=== PATIENT | female | born 1945 | race Caucasian/White ===

== ENCOUNTER 2020-06-21 20:35 | Emergency (ER) | payer OTHER ==
--- OUTSIDE RECORDS SUMMARY | 2020-06-21 20:38 | XMS REPORT | Continuity of Care Document ---
:1945 Author Organization [facility] t Address [address] [place] [address] [address] [place] [address] Care Team Providers Name Role Phone Aiyana Escobar Attending Clinician [phone] Mary Stanley MD Attending Clinician Doctor Unassigned, Name Attending Clinician Unavailable Problems This patient has no known problems. Allergies, Adverse Reactions, Alerts This patient has no known allergies or adverse reactions. Medications This patient has no known medications. Procedures This patient has no known procedures. Encounters Start End Encounter Admission Attending Care Care Encounter Source Date/Time Date/Time Type Type Clinicians Facility Department ID 2020-06-19 2020-06-19 Outpatient Valeria Escobar [facility] [id number] 00:00:00 00:00:00 Aiyana [id number] 2020-03-07 2020-03-07 Office JERRY Stanley [id number] 08:46:43 09:23:25 Visit [facility] [id number] Surgical [id number] Specialti [id number] [place] 2020-03-07 2020-03-07 Orders Doctor SHERI [id number] 00:00:00 00:00:00 Only UnassignedCECILIA [id number] [facility] [id number] Results This patient has no known results.
[2020-06-21 21:15] LABS: Absolute Lymphocytes (CBC) 4.4 K/uL (0.7-4.9); Basophils % 0.6 % (0-1.3); MPV 8.1 fL (7.6-11.3); RBC Red Blood Cell Count 4.78 M/uL (3.86-4.86)
[2020-06-21 21:16] LABS: Protime INR 0.98
[2020-06-21 21:29] LABS: ALT/SGPT 29 U/L (12-78); AST/SGOT 16 U/L (15-37); Albumin 3.8 g/dL (3.4-5.0); Alkaline Phosphatase 71 U/L (45-117); BUN Blood Urea Nitrogen 19 mg/dL (7-18); Bicarbonate 29 mmol/L (21-32); Bilirubin Direct 0.1 mg/dL (0-0.2); Bilirubin Total 0.3 mg/dL (0.2-1.0); Glucose Level 108 mg/dL (74-106); Magnesium 1.7 mg/dL (1.8-2.4); NT PRO-BNP 35 pg/mL (<450); Potassium 3.1 mmol/L (3.5-5.1); Protein, Total 8.5 g/dL (6.4-8.2); Sodium Level 138 mmol/L (136-145); Troponin (Emerg Dept Use Only) < 0.02 ng/mL (0.0-0.045)
[2020-06-21] MEDS ORDERED: MAGNES/ALUMIN/SIMET 30ML UCUP ONE (21:30)
[2020-06-21] MEDS ORDERED: LIDOCAINE VISCOUS 2% SOLN 15 ML UDC ONE (21:31)
[2020-06-21] MEDS ORDERED: MORPHINE 4 MG/ML SYR ONE (21:31)
[2020-06-21] MEDS ORDERED: FAMOTIDINE 20 MG/2 ML VIAL IV ONE (21:31)
[2020-06-21] MEDS ORDERED: NA CHLORIDE 0.9% 1,000 ML ONE (21:31)
[2020-06-21] MEDS ORDERED: ONDANSETRON 4 MG/2 ML VIAL ONE (21:31)
[2020-06-21] MEDS ORDERED: KCL 20 MEQ/100 mL IVPB 20 MEQ/100 ML BAG IV ONE (22:06)
--- NOTE | 2020-06-21 23:39 | ER ---
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 Denies SOB/dizzy. Coronavirus screen: Client denies travel out of the [place] in the last 14 days. At this time, the client does not indicate any symptoms associated with coronavirus-19. Ebola Screen: Patient denies travel to an Ebola-affected area in the 21 days before illness onset. Initial Sepsis Screen: Does the patient meet any 2 criteria? No. Patient's initial sepsis screen is negative. Does the patient have a suspected source of infection? No. Patient's initial sepsis screen is negative. Risk Assessment: Do you want to hurt yourself or someone else? Patient reports no desire to harm self or others. Onset of symptoms was June 21, 2020. 20:49 Method Of Arrival: Ambulatory ll1 20:49 Acuity: RYAN 3 ll1 Historical: - Allergies: 20:45 Augmentin; ll1 - PMHx: 20:45 GERD; Hypothyroidism; Hypertension; Tachycardia; ll1 - PSHx: 20:45 Tubal ligation; ll1 - Immunization history:: Flu vaccine is not up to date. - Social history:: Smoking status: Patient denies any tobacco usage or history of. - Family history:: not pertinent. Screenin:05 Abuse screen: Denies threats or abuse. Denies injuries from another. Nutritional rv screening: No deficits noted. Tuberculosis screening: No symptoms or risk factors identified. Fall Risk None identified. Assessment: 21:05 General: Appears uncomfortable, Behavior is calm, cooperative. Pain: Complains of pain rv in chest Pain does not radiate. Pain began suddenly. Neuro: Level of Consciousness is awake, alert, obeys commands, Oriented to person, place, time, situation. Cardiovascular: Patient's skin is warm and dry. Rhythm is sinus rhythm. Respiratory: Airway is patent Respiratory effort is even, unlabored. Derm: Skin is intact. 21:57 Reassessment: sent to CT. mg2 23:36 Reassessment: Patient appears in no apparent distress at this time. Patient and/or mg2 family updated on plan of care and expected duration. Pain level reassessed. Patient is alert, oriented x 3, equal unlabored respirations, skin warm/dry/pink. Vital Signs: 20:49 BP 167 / 78; Pulse 79; Resp 18; Pulse Ox 98% on R/A; Weight 86.18 kg; Height 5 ft. 3 ll1 in. (160.02 cm); Pain 10/10; 23:12 BP 138 / 58; Pulse 66; Resp 15; Temp 98.2; Pulse Ox 96% on R/A; mg2 23:35 BP 139 / 70; Pulse 71; Resp 18; Pulse Ox 98% on R/A; mg2 20:49 Body Mass Index 33.66 (86.18 kg, 160.02 cm) ll1 ED Course: 20:39 Patient arrived in ED. cl3 20:45 Arm band placed on Patient placed in an exam room, on a stretcher. ll1 20:47 Bret Smiley, BIA is Primary Nurse. rv 20:50 Triage completed. ll1 20:54 Initial lab(s) drawn, by me, sent to lab. Inserted saline lock: 20 gauge in right rv antecubital area, using aseptic technique. Blood collected. 20:57 Christiano Medina MD is Attending Physician. ma2 21:06 Patient has correct armband on for positive identification. monitor and storage bin tender on. Pulse rv ox on. NIBP on. 21:06 Patient maintains SpO2 saturation greater than 95% on room air. rv 21:30 US Abdomen Limited In Process Unspecified. EDMS 21:50 XRAY Chest (1 view) In Process Unspecified. EDMS 22:11 CT Abd/Pelvis - IV Contrast Only In Process Unspecified. EDMS 23:38 Brennan Boyce MD is Referral Physician. ma2 23:46 No provider procedures requiring assistance completed. IV discontinued, intact, rv bleeding controlled, No redness/swelling at site. Pressure dressing applied. Administered Medications: 21:30 Drug: NS 0.9% 1000 ml Route: IV; Rate: 1 bolus; Site: right antecubital; mg2 23:47 Follow up: IV Status: Completed infusion; IV Intake: 1000ml rv 21:30 Drug: GI Cocktail without - (Maalox Suspension 30 ml, Lidocaine Liquid 2 % 15 mg2 ml) Route: PO; 23:47 Follow up: Response: No adverse reaction rv 21:30 Drug: morphine 4 mg Route: IVP; Site: right antecubital; mg2 23:46 Follow up: Response: No adverse reaction; Marked relief of symptoms; Pain is decreased; rv RASS: Alert and Calm (0) 21:30 Drug: Zofran (Ondansetron) 4 mg Route: IVP; Site: right antecubital; mg2 23:46 Follow up: Response: No adverse reaction rv 21:31 Drug: Pepcid (famotidine) 20 mg Route: IVP; Site: right antecubital; mg2 23:47 Follow up: Response: No adverse reaction rv 21:59 Drug: Potassium Chloride 20 mEq Route: IV; Rate: calculated rate; Site: right mg2 antecubital; 23:46 Follow up: IV Status: Completed infusion; IV Intake: 50ml rv 23:46 Follow up: IV Intake: 100ml rv Intake: 23:46 IV: 50ml; Total: 50ml. rv 23:46 IV: 100ml; Total: 150ml. rv 23:47 IV: 1000ml; Total: 1150ml. rv Outcome: 23:38 Discharge ordered by . ma2 23:47 Discharged to home ambulatory. rv 23:47 Condition: good 23:47 Discharge instructions given to patient, Instructed on discharge instructions, follow up and referral plans. medication usage, Demonstrated understanding of instructions, follow-up care, medications, Prescriptions given X 3. 23:47 Patient left the ED. rv Signatures: Dispatcher [employer] EDMS Christiano Medina MD MD ma2 Abhishek Mcdonald, RN RN mg2 Bret Smiley RN RN rv Tricia Barrett Lynsay, RN RN ll1
--- NOTE | 2020-06-21 23:39 | EDPHYS ---
Physician Documentation [facility] Name: Chanel Martinez Age: 75 yrs Sex: Female : 1945 Arrival Date: 06/21/2020 Time: 20:39 Bed 2 Private MD: ED Physician Christiano Medina HPI: 06/21 21:42 This 75 yrs old Female presents to ER via Ambulatory with complaints of ma2 epigastric and abdominal pain Low Back Pain. 21:45 Onset: gradually, 1 hour(s) ago. Associated signs and symptoms: Pertinent positives: ma2 abdominal pain, Pertinent negatives: cough, dizziness, lower extremity pain, lightheadedness, near syncope, shortness of breath, syncope, vomiting. Severity of pain: At its worst the pain was moderate in the emergency department the pain is unchanged. The patient has not experienced similar symptoms in the past. epigastric abdominal pain and right upper quadrant that radiates to right scapula, no chest pain, never had any cardiac pain or cardiac problems before. Historical: - Allergies: 20:45 Augmentin; ll1 - PMHx: 20:45 GERD; Hypothyroidism; Hypertension; Tachycardia; ll1 - PSHx: 20:45 Tubal ligation; ll1 - Immunization history:: Flu vaccine is not up to date. - Social history:: Smoking status: Patient denies any tobacco usage or history of. - Family history:: not pertinent. ROS: 21:45 Constitutional: Negative for fever, chills, and weight loss. ma2 21:45 All other systems are negative. Exam: 21:45 Constitutional: This is a well developed, well nourished patient who is awake, alert, ma2 and in no acute distress. Chest/axilla: Normal chest wall appearance and motion. Nontender with no deformity. No lesions are appreciated. Cardiovascular: Regular rate and rhythm with a normal S1 and S2. No gallops, murmurs, or rubs. Normal PMI, no JVD. No pulse deficits. Respiratory: Lungs have equal breath sounds bilaterally, clear to auscultation and percussion. No rales, rhonchi or wheezes noted. No increased work of breathing, no retractions or nasal flaring. Abdomen/GI: mild epigastric and ruq -tender, with normal bowel sounds. No distension or tympany. No guarding or rebound. Back: No spinal tenderness. No costovertebral tenderness. Full range of motion. MS/ Extremity: Pulses equal, no cyanosis. Neurovascular intact. Full, normal range of motion. Neuro: Awake and alert, GCS 15, oriented to person, place, time, and situation. Cranial nerves II-XII grossly intact. Motor strength 5/5 in all extremities. Sensory grossly intact. Cerebellar exam normal. Normal gait. Vital Signs: 20:49 BP 167 / 78; Pulse 79; Resp 18; Pulse Ox 98% on R/A; Weight 86.18 kg; Height 5 ft. 3 ll1 in. (160.02 cm); Pain 10/10; 23:12 BP 138 / 58; Pulse 66; Resp 15; Temp 98.2; Pulse Ox 96% on R/A; mg2 23:35 BP 139 / 70; Pulse 71; Resp 18; Pulse Ox 98% on R/A; mg2 20:49 Body Mass Index 33.66 (86.18 kg, 160.02 cm) ll1 MDM: 20:57 Patient medically screened. ma2 21:45 Differential diagnosis: esophagitis, gastritis, gastroesophageal reflux disease (GERD), ma2 pancreatitis, pleurisy, pneumonia, unlikely acs she is yovanny score zero and heart score zero, ekg wnl and troponin is negative. 22:54 HEART Score: History:. Data reviewed: vital signs, nurses notes. ED course: pain has ma2 resolved, n ochest pain, no symptoms at this time, yovanny score and heart score of zero, will get 2 trop and she will see gen surg for cholelithiasis . 06/21 20:55 Order name: Basic Metabolic Panel; Complete Time: 21:41 06/21 20:55 Order name: CBC with Diff; Complete Time: 21:41 06/21 20:55 Order name: LFT's; Complete Time: 21:41 06/21 20:55 Order name: Magnesium; Complete Time: 21:41 06/21 20:55 Order name: NT PRO-BNP; Complete Time: 21:41 06/21 20:55 Order name: PT-INR; Complete Time: 21:41 06/21 20:55 Order name: Troponin (emerg Dept Use Only); Complete Time: 21:41 06/21 20:55 Order name: XRAY Chest (1 view) 06/21 21:08 Order name: Lipase; Complete Time: 21:41 [facility] 06/21 21:08 Order name: US Abdomen Limited [facility] 06/21 21:08 Order name: CT Abd/Pelvis - IV Contrast Only [facility] 06/21 21:49 Order name: Troponin (emerg Dept Use Only): repeat troponin at 11 pm please! [facility] 06/21 21:49 Order name: Troponin (Emerg Dept Use Only); Complete Time: 23:37 EDMS 06/21 20:55 Order name: EKG; Complete Time: 20:55 rv 06/21 20:55 Order name: Cardiac monitoring; Complete Time: 20:59 rv 06/21 20:55 Order name: EKG - Nurse/Tech; Complete Time: 21:00 06/21 20:55 Order name: IV Saline Lock; Complete Time: 21:06 rv 06/21 20:55 Order name: Labs collected and sent; Complete Time: 21:06 06/21 20:55 Order name: O2 Per Protocol; Complete Time: 21:06 06/21 20:55 Order name: O2 Sat Monitoring; Complete Time: 21:00 rv Administered Medications: 21:30 Drug: NS 0.9% 1000 ml Route: IV; Rate: 1 bolus; Site: right antecubital; mg2 23:47 Follow up: IV Status: Completed infusion; IV Intake: 1000ml rv 21:30 Drug: GI Cocktail without - (Maalox Suspension 30 ml, Lidocaine Liquid 2 % 15 mg2 ml) Route: PO; 23:47 Follow up: Response: No adverse reaction rv 21:30 Drug: morphine 4 mg Route: IVP; Site: right antecubital; mg2 23:46 Follow up: Response: No adverse reaction; Marked relief of symptoms; Pain is decreased; rv RASS: Alert and Calm (0) 21:30 Drug: Zofran (Ondansetron) 4 mg Route: IVP; Site: right antecubital; mg2 23:46 Follow up: Response: No adverse reaction rv 21:31 Drug: Pepcid (famotidine) 20 mg Route: IVP; Site: right antecubital; mg2 23:47 Follow up: Response: No adverse reaction rv 21:59 Drug: Potassium Chloride 20 mEq Route: IV; Rate: calculated rate; Site: right mg2 antecubital; 23:46 Follow up: IV Status: Completed infusion; IV Intake: 50ml rv 23:46 Follow up: IV Intake: 100ml rv Disposition: 06/21/20 23:38 Discharged to Home. Impression: Cholelithiasis. - Condition is Stable. - Discharge Instructions: Biliary Colic, Adult. - Prescriptions for Zofran 4 mg Oral Tablet - take 1 tablet by ORAL route every 12 hours As needed; 20 tablet. Diclofenac Sodium 75 mg Oral Tablet Sustained Release - take 1 tablet by ORAL route 2 times per day; 30 tablet. Pepcid 20 mg Oral Tablet - take 1 tablet by ORAL route once daily for 10 days; 10 tablet. - Medication Reconciliation Form, Thank You Letter, Antibiotic Education, Prescription Opioid Use form. - Follow up: Brennan Boyce; When: Tomorrow; Reason: Continuance of care. Signatures: Dispatcher [employer] EDMS Christiano Medina MD MD ma2 Abhishek Mcdonald RN RN mg2 Bret Smiley RN RN rv Anaya Barrett RN RN ll1 Corrections: (The following items were deleted from the chart) 23:47 23:38 06/21/2020 23:38 Discharged to Home. Impression: Cholelithiasis. Condition is rv Stable. Discharge Instructions: Biliary Colic, Adult. Prescriptions for Zofran 4 mg Oral Tablet - take 1 tablet by ORAL route every 12 hours As needed; 20 tablet, Diclofenac Sodium 75 mg Oral Tablet Sustained Release - take 1 tablet by ORAL route 2 times per day; 30 tablet, Pepcid 20 mg Oral Tablet - take 1 tablet by ORAL route once daily for 10 days; 10 tablet. and Forms are Medication Reconciliation Form, Thank You Letter, Antibiotic Education, Prescription Opioid Use. Follow up: Brennan Boyce; When: Tomorrow; Reason: Continuance of care. ma2
--- NOTE | 2020-06-22 09:18 | RAD REPORT ---
EXAM DESCRIPTION: US - Abdomen Exam Limited - 06/21/2020 9:30 pm CLINICAL HISTORY: Abdominal pain. COMPARISON: None. FINDINGS: The gallbladder wall is not thickened. Multiple gallstones. The biliary tree is normal caliber. IMPRESSION: Cholelithiasis without evidence of cholecystitis
--- NOTE | 2020-06-22 09:20 | RAD REPORT ---
EXAM DESCRIPTION: Nico Single View06/21/2020 9:51 pm CLINICAL HISTORY: Chest pain COMPARISON: none FINDINGS: The lungs appear clear of acute infiltrate. The heart is normal size IMPRESSION: No acute abnormalities displayed
--- NOTE | 2020-06-22 11:12 | EKG ---
Test Date: 2020-06-21 Test Time: 20:54:26 Second Chef: MONY MEASUREMENT RESULTS: Intervals: Rate: 71 IA: 152 QRSD: 112 QT: 406 QTc: 441 [place]: P: 57 IA: 152 QRS: -2 T: 68 INTERPRETIVE STATEMENTS: Normal sinus rhythm Normal ECG No previous ECG available for comparison Electronically Signed On 06-22-20 11:11:08 CDT by Agus Kolb
[2020-06-22 17:15] VITALS: TEMP 98.2
[2020-06-22 17:18] VITALS: BP 139/70; O2SAT 98
--- NOTE | 2020-06-22 19:25 | RAD REPORT ---
EXAM DESCRIPTION: CT - Abdomen Pelvis W Contrast - 06/22/2020 6:33 am CLINICAL HISTORY: ABD PAIN. COMPARISON: None. TECHNIQUE: CT of the abdomen and pelvis was performed following intravenous administration of iodina warren contrast. Arterial phase images through the abdomen, portal venous phase images through the abdom en and pelvis. Oral contrast was not administered. Axial, coronal, and sagittal soft tissue window re constructions were created and sent to PACS. This exam was performed according to our departmental dose-optimization program, which includes autom ated exposure control, adjustment of the mA and/or kV according to patient size and/or use of iterati ve reconstruction technique. FINDINGS: Thoracic: No significant abnormality. Hepatobiliary: Mild hepatomegaly, measuring 17.1 cm. No concerning hepatic lesion identified. The hep atic and portal veins are patent. Gallbladder sludge. No wall thickening or inflammatory changes. No biliary ductal dilatation. Pancreas: Unremarkable. Spleen: Unremarkable. Gastrointestinal: No evidence of bowel obstruction or perienteric inflammation. The appendix is tima l. Adrenals: No abnormality identified in either adrenal gland. Renal: Small interpolar left renal hypodensity measures 1.3 cm, too small to accurately characterize but statistically likely a cyst. No concerning parenchymal abnormality in either kidney. No hydroneph rosis or urolithiasis. Bladder/Reproductive: Unremarkable appearance of the urinary bladder by CT technique. Unremarkable CT appearance of the uterus and ovaries. Vascular/Lymphatics: No lymphadenopathy identified by CT size criteria. Abdominal aorta is normal in caliber. Mild atherosclerosis. The major visceral vessels are patent. Musculoskeletal: No concerning osseous lesion identified. Osteopenia. Lumbar spine degenerative fu es. Fluid / peritoneum: No significant free fluid. No free intraperitoneal air identified. IMPRESSION 1. No acute abnormality identified by CT. 2. Mild hepatomegaly. 3. Gallbladder sludge without evidence of acute cholecystitis. 4. Small left renal hypodensity, likely a cyst. Electronically signed by: Mecca Cha MD 06/21/2020 10:35 PM CDT Due to temporary technical issues with the PACS/Fluency reporting system, reports are being signed by the in house radiologists without review as a courtesy to insure prompt reporting. The interpreting radiologist is fully responsible for the content of the report.
== END 2020-06-21 23:47 | disposition home or self-care (01) ==
LOC: ER 20:35
DX: K80.20 Calculus of gallbladder without cholecystitis without obstruction (principal); M54.5 Low back pain; K21.9 Gastro-esophageal reflux disease without esophagitis; E03.9 Hypothyroidism, unspecified; I10 Essential (primary) hypertension
CPT/HCPCS: 93005; 85025; 80048; 36415; 83735; 85610; 80076; 84484 ×2; 83690; 83880; 74177; 71045; 76705; Q9967; J3480; J7030; J2405; 96365; 96366; 96375; 99285

== ENCOUNTER 2020-07-09 13:38 | Emergency (ER) | payer OTHER ==
--- OUTSIDE RECORDS SUMMARY | 2020-07-09 13:40 | XMS REPORT | Continuity of Care Document ---
:1945 Author Organization [facility] t Address [address] [place] [address] [address]. [address] [place] [address] Care Team Providers Name Role Phone Aiyana Escobar Attending Clinician [phone] Mary Stanley MD Attending Clinician Doctor Unassigned, Name Attending Clinician Unavailable Problems This patient has no known problems. Allergies, Adverse Reactions, Alerts This patient has no known allergies or adverse reactions. Medications This patient has no known medications. Procedures This patient has no known procedures. Encounters Start End Encounter Admission Attending Care Care Encounter Source Date/Time Date/Time Type Type Clinicians Facility Department ID 2020-07-09 2020-07-09 Outpatient Valeria Escobar [facility] [id number] 00:00:00 00:00:00 Aiyana [id number] 2020-06-19 2020-06-19 Outpatient Valeria Escobar [facility] [id number] 00:00:00 00:00:00 Aiyana [id number] 2020-03-07 2020-03-07 Office JERRY Stanley [id number] 08:46:43 09:23:25 Visit [facility] [id number] Surgical [id number] Specialti [id number] [address] [place] 2020-03-07 2020-03-07 Orders Doctor WADE [id number] 00:00:00 00:00:00 Only Unassigned, CECILIA [id number] [facility] [id number] Results This patient has no known results.
[2020-07-09 14:17] LABS: Absolute Lymphocytes (CBC) 2.2 K/uL (0.7-4.9); Basophils % 0.4 % (0-1.3); Hematocrit 40.1 % (36.0-45.0); Lymphocytes % 19.9 % (15.3-44.8); MPV 8.4 fL (7.6-11.3); RBC Red Blood Cell Count 4.98 M/uL (3.86-4.86)
[2020-07-09] MEDS ORDERED: MORPHINE 4 MG/ML SYR ONE (14:21)
[2020-07-09] MEDS ORDERED: ONDANSETRON 4 MG/2 ML VIAL ONE (14:21)
[2020-07-09 14:34] LABS: Bilirubin Direct 0.2 mg/dL (0-0.2); Bilirubin Total 0.7 mg/dL (0.2-1.0); Potassium 3.3 mmol/L (3.5-5.1); Protein, Total 8.1 g/dL (6.4-8.2)
--- NOTE | 2020-07-09 14:44 | RAD REPORT ---
EXAM DESCRIPTION: CT - Abdomen Pelvis W Contrast - 07/09/2020 2:15 pm CLINICAL HISTORY: ABD PAIN COMPARISON: Abdomen Pelvis W Contrast dated 06/21/2020; Abdomen Pelvis W Contrast dated 10/26/2015 TECHNIQUE: Biphasic, helical CT imaging of the abdomen and pelvis was performed following 100 ml non -ionic IV contrast. Oral contrast was given. All CT scans are performed using dose optimization technique as appropriate and may include automated exposure control or mA/KV adjustment according to patient size. FINDINGS: No suspicious findings in the lung bases. Small hiatal hernia is present. No cardiomegaly or pericardial effusion. Liver shows a mild diffuse fatty infiltration. No focal liver parenchymal lesion. No portal vein abno rmality identified. Spleen and pancreas show no suspicious findings. Gallbladder and biliary tree are also without suspicious finding. Gallstones and sludge can be occult on CT imaging. Symmetric renal function is seen with no hydronephrosis or suspicious renal mass. No pyelonephritis o r acute parenchymal process. No bladder abnormalities. No adrenal abnormalities. Small 10 mm cyst pre sent lateral mid left kidney. Uterus and ovaries show no suspicious findings. Left fundal fibroid is present similar to comparison. No stomach or small bowel abnormality. No evidence for appendicitis. Cecum through descending portion s of the colon are unremarkable. The proximal and mid sigmoid colon shows circumferential wall thicke aaron and edema. There is stranding in the adjacent fat. A few diverticula are present in this region. No focal mass lesion. No extraluminal air or bowel content. No free fluid or pneumatosis. No other inflammatory stranding changes seen. No hernia, mass or bul ky lymphadenopathy. No suspicious bony findings. IMPRESSION: Mild diverticulitis involving the proximal and mid sigmoid colon. No abscess, free air or emergent complication.
[2020-07-09] MEDS ORDERED: metroNIDAZOLE 500 MG TABLET ONE (15:15)
[2020-07-09] MEDS ORDERED: levoFLOXacin 750 MG TAB ONE (15:16)
--- NOTE | 2020-07-09 15:25 | EDPHYS ---
Physician Documentation [facility] Name: Chanel Martinez Age: 75 yrs Sex: Female : 1945 Arrival Date: 07/09/2020 Time: 13:41 Bed 6 Private MD: ED Physician Jaime Henderson HPI: 07/09 13:57 This 75 yrs old Female presents to ER via Ambulatory with complaints of jmm Abdominal Pain. 13:57 The patient presents with abdominal pain right lower quadrant, in the left lower jmm quadrant. Onset: The symptoms/episode began/occurred gradually, 1 day(s) ago. The symptoms do not radiate. Associated signs and symptoms: Pertinent positives: nausea, vomiting, and diarrhea, Pertinent negatives: fever. The symptoms are described as achy. Modifying factors: The symptoms are alleviated by nothing, the symptoms are aggravated by nothing. The patient has not experienced similar symptoms in the past. Historical: - Allergies: 13:54 Augmentin; aa5 13:54 PENICILLINS; aa5 - PMHx: 13:54 GERD; Hypertension; Hypothyroidism; Tachycardia; aa5 - PSHx: 13:54 Tubal ligation; aa5 - Immunization history:: Adult Immunizations unknown. - Social history:: Smoking status: Patient denies any tobacco usage or history of. ROS: 13:57 Constitutional: Negative for fever, chills, and weight loss, Cardiovascular: Negative jmm for chest pain, palpitations, and edema, Respiratory: Negative for shortness of breath, cough, wheezing, and pleuritic chest pain. 13:57 Abdomen/GI: Positive for abdominal pain. 13:57 All other systems are negative. Exam: 13:57 Constitutional: This is a well developed, well nourished patient who is awake, alert, jmm and in no acute distress. Head/Face: atraumatic. Eyes: EOMI, no conjunctival erythema appreciated ENT: Moist Mucus Membranes Neck: Trachea midline, Supple Chest/axilla: Normal chest wall appearance and motion. Cardiovascular: Regular rate and rhythm. No edema appreciated Respiratory: Normal respirations, no respiratory distress appreciated 13:57 Back: Normal ROM Skin: General appearance color normal MS/ Extremity: Moves all extremities, no obvious deformities appreciated, no edema noted to the lower extremities Neuro: Awake and alert, normal gait Psych: Behavior is normal, Mood is normal, Patient is cooperative and pleasant 13:57 Abdomen/GI: Inspection: obese Palpation: soft, in all quadrants, mild abdominal tenderness, in the suprapubic area, right lower quadrant and left lower quadrant. Vital Signs: 13:43 BP 134 / 76; Pulse 88; Resp 16 S; Temp 97.7(O); Pulse Ox 98% on R/A; Weight 85.73 kg aa5 (R); Height 5 ft. 3 in. (160.02 cm) (R); 15:04 BP 115 / 69; Pulse 85; Resp 16 S; Pulse Ox 98% on R/A; jd3 16:06 BP 138 / 70; Pulse 79; Resp 17 S; Pulse Ox 97% on R/A; jd3 13:43 Body Mass Index 33.48 (85.73 kg, 160.02 cm) aa5 MDM: 13:50 Patient medically screened. anders 15:22 Data reviewed: vital signs, nurses notes. Counseling: I had a detailed discussion with anders the patient and/or guardian regarding: the historical points, exam findings, and any diagnostic results supporting the discharge/admit diagnosis, lab results, radiology results, the need for outpatient follow up, to return to the emergency department if symptoms worsen or persist or if there are any questions or concerns that arise at home. ED course: Patient is alert and non toxic in appearance in the ED. No signs of sepsis. Abdomen soft. Patient is advised to follow up with pcp/gi for reevaluation. Patient is otherwise given strict return precautions. Patient understood and agrees with the plan of care. . 07/09 13:51 Order name: Basic Metabolic Panel; Complete [facility]: 14:[facility] 07/[facility] 13:51 Order name: CBC with Diff; Complete Time: 14:37 [facility] 07/09 13:51 Order name: Hepatic Function; Complete Time: 14:37 [facility] 07/09 13:51 Order name: Lipase; Complete Time: 14:37 [facility] 07/09 13:51 Order name: CT Abd/Pelvis - IV Contrast Only; Complete Time: 14:54 [facility] 07/09 14:29 Order name: CREATININE WHOLE BLOOD; Complete Time: 14:37 [facility] 07/09 13:51 Order name: IV Saline Lock; Complete Time: 14:02 [facility] 07/09 13:51 Order name: Labs collected and sent; Complete Time: 14:02 [facility] Administered Medications: 14:08 Drug: morphine 4 mg Route: IVP; Site: right antecubital; jd3 15:00 Follow up: Response: No adverse reaction; RASS: Alert and Calm (0) jd3 14:08 Drug: Zofran (Ondansetron) 4 mg Route: IVP; Site: right antecubital; jd3 15:00 Follow up: Response: No adverse reaction jd3 15:03 Drug: LevaQUIN (levofloxacin) 750 mg Route: PO; jd3 16:09 Follow up: Response: No adverse reaction jd3 15:03 Drug: Flagyl (metroNIDAZOLE) 500 mg Route: PO; jd3 16:10 Follow up: Response: No adverse reaction jd3 Disposition: 16:07 Co-signature as Attending Physician, Jaime Henderson MD I agree with the assessment and kdr plan of care. Disposition: 07/09/20 15:25 Discharged to Home. Impression: Acute Diverticulitis. - Condition is Stable. - Discharge Instructions: Diverticulitis. - Prescriptions for Zofran ODT 4 mg Oral tablet,disintegrating - place 1 tablet by TRANSLINGUAL route every 4-6 hours; 20 tablet. Flagyl 500 mg Oral Tablet - take 1 tablet by ORAL route every 6 hours for 10 days; 40 tablet. Levaquin 750 mg Oral Tablet - take 1 tablet by ORAL route once daily for 10 days; 10 tablet. Tylenol- Codeine #3 300-30 mg Oral Tablet - take 1 tablet by ORAL route every 4-6 hours As needed; 20 tablet. - Medication Reconciliation Form, Thank You Letter, Antibiotic Education, Prescription Opioid Use form. - Follow up: Private Physician; When: 2 - 3 days; Reason: Recheck today's complaints, Continuance of care, Re-evaluation by your physician. Signatures: Dispatcher [employer] EDMS Jaime Henderson MD MD kdr Mickail, Joel, PA PA jmm Calderon, Audri, RN RN aa5 Luther Kirk RN RN jd3 Corrections: (The following items were deleted from the chart) 16:07 15:25 07/09/2020 15:25 Discharged to Home. Impression: Acute Diverticulitis. Condition jd3 is Stable. Forms are Medication Reconciliation Form, Thank You Letter, Antibiotic Education, Prescription Opioid Use. Follow up: Private Physician; When: 2 - 3 days; Reason: Recheck today's complaints, Continuance of care, Re-evaluation by your physician. anders
--- NOTE | 2020-07-09 15:25 | ER ---
Nurse's Notes [facility] Name: Chanel Martinez Age: 75 yrs Sex: Female : 1945 Arrival Date: 07/09/2020 Time: 13:41 Bed 6 Private MD: Diagnosis: Acute Diverticulitis Presentation: 07/09 13:43 Chief complaint: Patient states: lower abd pain since yesterday, pt reports vomited aa5 twice yesterday, denies vomiting today. Pt reports she took stool softener for constipation and now has some diarrhea. 13:43 Coronavirus screen: nausea, vomiting. Ebola Screen: Patient negative for fever greater aa5 than or equal to 101.5 degrees Fahrenheit, and additional compatible Ebola Virus Disease symptoms. Initial Sepsis Screen: Does the patient meet any 2 criteria? No. Patient's initial sepsis screen is negative. Does the patient have a suspected source of infection? No. Patient's initial sepsis screen is negative. Risk Assessment: Do you want to hurt yourself or someone else? Patient reports no desire to harm self or others. Onset of symptoms was June 2020. 13:43 Acuity: RYAN 3 aa5 13:43 Method Of Arrival: Ambulatory aa5 Historical: - Allergies: 13:54 Augmentin; aa5 13:54 PENICILLINS; aa5 - PMHx: 13:54 GERD; Hypertension; Hypothyroidism; Tachycardia; aa5 - PSHx: 13:54 Tubal ligation; aa5 - Immunization history:: Adult Immunizations unknown. - Social history:: Smoking status: Patient denies any tobacco usage or history of. Screenin:11 Abuse screen: Denies threats or abuse. Nutritional screening: No deficits noted. jd3 Tuberculosis screening: No symptoms or risk factors identified. Fall Risk Ambulatory Aid- None/Bed Rest/Nurse Assist (0 pts). Gait- Normal/Bed Rest/Wheelchair (0 pts) Mental Status- Oriented to own ability (0 pts). Total Hernandez Fall Scale indicates No Risk (0-24 pts). Assessment: 14:09 General: Appears in no apparent distress. comfortable, Behavior is calm, cooperative, jd3 appropriate for age. Pain: Complains of pain in suprapubic area, right lower quadrant and left lower quadrant Quality of pain is described as sharp. Neuro: Level of Consciousness is awake, alert, obeys commands, Oriented to person, place, time, situation. Cardiovascular: Denies chest pain, Capillary refill < 3 seconds Patient's skin is warm and dry. Respiratory: Airway is patent Respiratory effort is even, unlabored, Respiratory pattern is regular, symmetrical, Denies cough, shortness of breath. GI: Abdomen is round non-distended, Abd is soft and non tender X 4 quads. Reports lower abdominal pain, diarrhea, nausea. : No signs and/or symptoms were reported regarding the genitourinary system. EENT: No signs and/or symptoms were reported regarding the EENT system. Derm: Skin is intact, Skin is dry, Skin is normal, Skin temperature is warm. Musculoskeletal: Circulation, motion, and sensation intact. Range of motion: intact in all extremities. 15:04 Reassessment: Patient appears in no apparent distress at this time. Patient and/or jd3 family updated on plan of care and expected duration. Pain level reassessed. Patient is alert, oriented x 3, equal unlabored respirations, skin warm/dry/pink. Patient states feeling better. 16:06 Reassessment: Patient appears in no apparent distress at this time. Patient and/or jd3 family updated on plan of care and expected duration. Pain level reassessed. Patient is alert, oriented x 3, equal unlabored respirations, skin warm/dry/pink. Patient states feeling better. Vital Signs: 13:43 BP 134 / 76; Pulse 88; Resp 16 S; Temp 97.7(O); Pulse Ox 98% on R/A; Weight 85.73 kg aa5 (R); Height 5 ft. 3 in. (160.02 cm) (R); 15:04 BP 115 / 69; Pulse 85; Resp 16 S; Pulse Ox 98% on R/A; jd3 16:06 BP 138 / 70; Pulse 79; Resp 17 S; Pulse Ox 97% on R/A; jd3 13:43 Body Mass Index 33.48 (85.73 kg, 160.02 cm) aa5 ED Course: 13:41 Patient arrived in ED. mr 13:43 Arm band placed on Patient placed in an exam room, on a stretcher. aa 13:45 Davidson Hawkins PA is PHCP. [facility] 13:45 Jaime Henderson MD is Attending Physician. anders 13:46 Alejandrina Burgos, RN is Primary Nurse. fatoumata 13:48 Luther Kirk, RN is Primary Nurse. jd3 13:53 Triage completed. aa5 14:08 Inserted saline lock: 20 gauge in right antecubital area, using aseptic technique. jd3 Blood collected. 14:11 Patient has correct armband on for positive identification. Bed in low position. Call jd3 light in reach. Side rails up X 1. Adult w/ patient. Pulse ox on. NIBP on. 14:15 CT Abd/Pelvis - IV Contrast Only In Process Unspecified. EDMS 15:04 No provider procedures requiring assistance completed. jd3 16:06 IV discontinued, intact, bleeding controlled, No redness/swelling at site. Pressure jd3 dressing applied. Administered Medications: 14:08 Drug: morphine 4 mg Route: IVP; Site: right antecubital; jd3 15:00 Follow up: Response: No adverse reaction; RASS: Alert and Calm (0) jd3 14:08 Drug: Zofran (Ondansetron) 4 mg Route: IVP; Site: right antecubital; jd3 15:00 Follow up: Response: No adverse reaction jd3 15:03 Drug: LevaQUIN (levofloxacin) 750 mg Route: PO; jd3 16:09 Follow up: Response: No adverse reaction jd3 15:03 Drug: Flagyl (metroNIDAZOLE) 500 mg Route: PO; jd3 16:10 Follow up: Response: No adverse reaction jd3 Outcome: 15:25 Discharge ordered by . [facility] 16:05 Discharged to home ambulatory, with family. jd3 16:05 Condition: stable 16:05 Discharge instructions given to patient, family, Instructed on discharge instructions, follow up and referral plans. medication usage, Demonstrated understanding of instructions, follow-up care, medications, Prescriptions given X 4. 16:07 Patient left the ED. jd3 Signatures: Dispatcher [employer] EDMS Davidson Hawkins PA PA jmm Rivera, Mary mr ChunCaren, RN RN aa5 Alejandrina Burgos, RN RN jl7 Luther Kirk, BIA RN jd3
[2020-07-09 16:14] VITALS: TEMP 97.7
[2020-07-09 16:17] VITALS: BP 138/70; O2SAT 97
== END 2020-07-09 16:07 | disposition home or self-care (01) ==
LOC: ER 13:38
DX: K57.32 Diverticulitis of large intestine without perforation or abscess without bleeding (principal); K21.9 Gastro-esophageal reflux disease without esophagitis; I10 Essential (primary) hypertension; E03.9 Hypothyroidism, unspecified
CPT/HCPCS: 85025; 80048; 36415; 82565; 80076; 83690; 74177; J2405; 96374; 96375; 99284

== ENCOUNTER 2020-08-07 06:28 | Day surgery (SDC) | payer OTHER ==
[2020-07-22 15:33] LABS: Absolute Lymphocytes (CBC) 3.2 K/uL (0.7-4.9); Basophils % 0.6 % (0-1.3); Hematocrit 37.1 % (36.0-45.0); Lymphocytes % 35.1 % (15.3-44.8); MPV 7.7 fL (7.6-11.3); RBC Red Blood Cell Count 4.64 M/uL (3.86-4.86)
[2020-07-22 15:48] LABS: Albumin 3.8 g/dL (3.4-5.0); Bilirubin Direct 0.1 mg/dL (0-0.2); Bilirubin Total 0.4 mg/dL (0.2-1.0); Protein, Total 7.7 g/dL (6.4-8.2)
[2020-07-22 15:54] LABS: Potassium 2.8 mmol/L (3.5-5.1)
[2020-08-07] MEDS ORDERED: Ringers Lactate 1,000 ML IV ONE (07:03)
[2020-08-07] MEDS ORDERED: CEFOXITIN/SWI 1gm 1 GM/10 ML SYR ONE (07:04)
[2020-08-07] MEDS ORDERED: MIDAZOLAM HCL 2 MG/2 ML INJ ONE (07:18)
[2020-08-07] MEDS ORDERED: LIDOCAINE 1% MPF 5 ML VIAL ONE (07:18)
[2020-08-07] MEDS ORDERED: FENTANYL CITR 100 MCG/2 ML ONE ×2 (07:18→09:57)
[2020-08-07] MEDS ORDERED: ROCURONIUM 50 MG/5 ML VIAL IV ONE (07:18)
[2020-08-07] MEDS ORDERED: propofoL 200 MG/20 ML VIAL IV ONE (07:18)
[2020-08-07] MEDS ORDERED: CIPROFLOXACIN 400mg IV 400 MG/200 ML BAG IV ONE (08:12)
[2020-08-07] MEDS ORDERED: dexAMETHasone 10 MG/ML VIAL ONE (09:23)
[2020-08-07] MEDS ORDERED: KETOROLAC 30 MG/ML INJ ONE (09:24)
[2020-08-07] MEDS ORDERED: ONDANSETRON 4 MG/2 ML VIAL ONE (09:24)
[2020-08-07] MEDS ORDERED: NEOSTIGMINE 1 MG/ML -5 ML ONE (09:25)
[2020-08-07] MEDS ORDERED: GLYCOPYRROLATE 0.2 MG/ML SYR ONE (09:25)
--- NOTE | 2020-08-07 09:33 | P.BOP ---
Preoperative diagnosis: symptomatic cholelithiasis, RUQ abd pain Postoperative diagnosis: same Primary procedure: Laparoscopic cholecystectomy Geometrician: CRISTIAN JORDAN (SOIL FIELD TECHNICIAN) Estimated blood loss: <10cc Specimen: gb Findings: as above Anesthesia: General Complications: None Transferred to: Recovery Room Condition: Good
[2020-08-07] MEDS ORDERED: MORPHINE 4 MG/ML SYR ONE (10:12)
[2020-08-07 10:27] VITALS: O2SAT 97
--- NOTE | 2020-08-07 11:02 | DS ---
Diagnoses: Acute cholecystitis, symptomatic cholelithiasis, right upper quadrant abdominal pain. Procedure: Laparoscopic cholecystectomy. Disposition: Home. Discharge Instructions: Activity as tolerated. No heavy lifting. Plan: Follow up in my office in 1 week. Call for appointment at [phone]. Keep area dry for 48 kym rs, then shower. Keep Steri-Strip intact. Medications: Include Cipro 500 b.i.d. and Tylenol No.3 q.4 hours p.r.n. pain. [place] Voice ID: [id number] Report ID: [id number]
--- NOTE | 2020-08-07 11:02 | OP ---
Date of Procedure: 08/07/2020 Surgeon: Brennan Boyce MD Preoperative Diagnoses: Acute cholecystitis, symptomatic cholelithiasis, right upper quadrant abdomi nal pain. Postoperative Diagnoses: Acute cholecystitis, symptomatic cholelithiasis, right upper quadrant abdom inal pain. Procedure: Laparoscopic cholecystectomy. Anesthesia: General plus local. Estimated Blood Loss: Less than 10 mL. Finding: As above. Indication: This is the case of a 75-year-old patient, who comes with above diagnosis. She was book ed several weeks ago, but she came back positive for COVID. The primary doctor was consulted. We de cided to delay the procedure. In the last few days, she is getting more tender, so we have to have t his opportunity in this window to proceed with surgery at this time. Benefits, alternatives, and ris ks were fully explained, which include, but not limited to infection, bleeding, damage to adjacent st ructures, anesthesia complication, choledocholithiasis, bile leak, pancreatitis, NV, and even . Procedure In Detail: We proceeded to place the patient in supine position. Anesthesia was done with out complication. Abdominal area was prepped and draped in a sterile fashion. Marcaine 0.5% was inj ected for local anesthetic followed by sharp incision of the skin in the infraumbilical region. Inci pat was carried down to fascia, which was opened under direct vision. Vicryl #1 placed inside the f ascia. Gloria trocar was carefully introduced. Pneumoperitoneum was obtained. We placed 3 more tro cars, 5 mm each one of them, 1 in the epigastric area and 2 in the right upper quadrant using same te chnique, which consisted of local anesthetic, sharp incision of the skin, introduction of the trocars under direct vision. This allowed me to put a grasper in the fundus of the gallbladder and another grasper in the infundibulum, retracting the gallbladder in the inferolateral fashion and exposing the triangle of Calot and obtaining critical view. The cystic duct and cystic artery were clearly isola warren, freed circumferentially and a connection between those and the gallbladder were clearly identifi ed. I proceeded to ligate those by using at least 3 clips proximal, 1 clip distal, ligation in middl e. Same was done with cystic artery. No bile leak, no bleeding. The gallbladder was removed from l iver using Bovie cauterizer and removed from abdominal cavity using EndoCatch through the umbilical i ncision. The area was inspected once again. No bile leak, no bleeding. At that moment, I proceeded to remove the trocars under direct vision. Deflated pneumoperitoneum, closed the fascia with #1 Dhiraj ryl. Irrigated subcutaneous tissue, closed with 3-0 chromic and skin in a subcuticular fashion with 3-0 chromic and Steri-Strips on top. Sponge counts and counts correct. The patient tolerated the pr ocedure well. The patient was sent to recovery in stable condition. [place]ID Voice ID: [id number] Report ID: [id number]
[2020-08-07 11:05] VITALS: BP 139/56; TEMP 97
[2020-08-07] MEDS ORDERED: CODEINE 30MG/APAP 300MG TAB ONE (11:27)
[2020-08-07] MEDS ORDERED: SUCCINYLCHOLINE 20 MG/ML (10 ML) IV ONE (13:20)
== END 2020-08-07 11:55 | disposition home or self-care (01) ==
LOC: OR 06:28
PROVIDERS: ATTEND Surgery
PROC: 0FT44ZZ Resection of Gallbladder, Percutaneous Endoscopic Approach (ICD-10-PCS; principal; 2020-08-07 07:30)
DX: K80.10 Calculus of gallbladder with chronic cholecystitis without obstruction (principal); U07.1 COVID-19
CPT/HCPCS: 85025; 80048; 36415 ×2; 82150; 84132; 80076; 88304; 83690; 47562; U0003 ×2; J2704; J0330; J3010 ×2; J1100; J2710; J7120; J2405; J0744; J2250

== ENCOUNTER 2021-02-24 18:40 | Emergency (ER) | payer OTHER ==
--- OUTSIDE RECORDS SUMMARY | 2021-02-24 18:44 | XMS REPORT | Continuity of Care Document ---
:1945 Author Organization [facility] t Address [address] [place] [address] [address]. [address]al [address] [place] [address] Care Team Providers Name Role Phone DELANEY_Rody Attending Clinician Unavailable delaney_rody Attending Clinician Unavailable Aiyana Escobar Attending Clinician [phone] Kalen Reagan Attending Clinician [phone] Mary Stanley MD Attending Clinician Mary STANLEY Attending Clinician Unavailable Doctor Unassigned, Name Attending Clinician Unavailable DELANEY_Rody Admitting Clinician Unavailable delaney_rody Admitting Clinician Unavailable Payers Payer Name Policy Type Policy Number Effective Date Expiration Date S epi [employer] (MEDICARE [id number] REPLACEMENT/ADVANTA GE - PPO) [facility] - [id number] MEDICARE SOLUTIONS - MEDICARE COMPLETE (MEDICARE REPLACEMENT PPO) AARP MEDICARE [id number] 2016 2020 COMPLETE 00:00:00 00:00:00 Problems This patient has no known problems. Allergies, Adverse Reactions, Alerts Allergy Allergy Status Severity Reaction(s) Onset Inactive Treating Comm ents Source Name Type Date Date Clinician [place] Drug Active Anaphylaxis 2016- Uni vers INS Class 11-04 ity of 00:00: [address] [place] Propensi Active Anaphylaxis U nivers ins ty to 11-04 ity of adverse 00:00: [place] reaction Medical s Branch Social History Social Habit Start Date Stop Date Quantity Comments Source Exposure to Not sure [facility]-CoV-[address] [facility] (event) Branch Sex Assigned At Universit y of [facility] Tobacco use and 2020-03-07 2020-03-07 Never used Universit y of exposure 00:00:00 00:00:00 [place] [facility] Alcohol intake 2020-03-07 2020-03-07 Lifetime University of 00:00:00 00:00:00 non-drinker [place] [facility] (finding) Branch History [facility] 2020-01-22 2020-01-22 1 University o f Alcohol Frequency 00:00:00 00:00:00 [place] [facility] History [facility] 2020-01-22 2020-01-22 99 University o f Alcohol Std 00:00:00 00:00:00 [place] [facility] Drinks Branch History [facility] 2020-01-22 2020-01-22 1 Ethel o f Alcohol Binge 00:00:00 00:00:00 [place] [facility] Smoking Status Start Date Stop Date Source Never smoker [facility] Medical Branch Medications Ordered Filled Start Stop Current Ordering Indication Dosage Frequency Signature Comments Components Source Medication Medication Date Date Medication? Clinician (SIG) Name Name naltrexone- Yes Take by Un hugo bupropion 11-04 mouth. ity of (CONTRAVE) 19:23: [place] 8-90 mg per 37 Medical tablet Branch VITS Yes Take by Univers A,C,E/ZINC/ 11-04 mouth. ity of COPPER 19:23: [place] (VISION-VIT 37 Medical E PRESERVE Branch ORAL) VITAMIN B Yes Take by Univ ers COMPLEX (B 11-04 mouth. ity of COMPLEX 19:23: [place] ORAL) Medical Branch CYANOCOBALA Yes Place Unive rs MIN/COBAMAM 11-04 under the ity of DIVINE (B12 19:23: tongue. [facility]) Medical Branch naltrexone- Yes Take by Un hugo bupropion 8- mouth. ity of (CONTRAVE) 19:23: [place] 8-90 mg per 37 Medical tablet Branch naltrexone- Yes Take by Un hugo bupropion 8-09 mouth. ity of (CONTRAVE) 19:23: [place] 8-90 mg per 37 Medical tablet Branch VITS Yes Take by Univers A,C,E/ZINC/ 8 mouth. ity of COPPER 19:23: [place] (VISION-VIT 37 Medical E PRESERVE Branch ORAL) VITAMIN B Yes Take by Univ ers COMPLEX (B 8- mouth. ity of COMPLEX 19:23: [place] ORAL) 37 Medical Branch CYANOCOBALA 2017- Yes Place Unive rs MIN/COBAMAM 8-09 under the ity of DIVINE (B12 19:23: tongue. [place] SL) 37 Medical Branch VITS 2016-0 Yes Take by Univers A,C,E/ZINC/ 8-09 mouth. ity of COPPER 19:23: [place] (VISION-VIT 37 Medical E PRESERVE Branch ORAL) naltrexone- 0 Yes Take by Un hugo bupropion 8-09 mouth. ity of (CONTRAVE) 19:23: [place] 8-90 mg per 37 Medical tablet Branch VITS 2016-0 Yes Take by Univers A,C,E/ZINC/ 8-09 mouth. ity of COPPER 19:23: [place] (VISION-VIT 37 Medical E PRESERVE Branch ORAL) VITAMIN B Yes Take by Univ ers COMPLEX (B 8-09 mouth. ity of COMPLEX 19:23: [place] ORAL) 37 Medical Branch VITAMIN B 2016- Yes Take by Univ ers COMPLEX (B 8-09 mouth. ity of COMPLEX 19:23: [place] ORAL) 37 Medical Branch CYANOCOBALA 2016- Yes Place Unive rs MIN/COBAMAM 8-09 under the ity of DIVINE (B12 19:23: tongue. [place] SL) 37 Medical Branch naltrexone- 0 Yes Take by Un hugo bupropion 8-09 mouth. ity of (CONTRAVE) 19:23: [place] 8-90 mg per 37 Medical tablet Branch VITS 0 Yes Take by Univers A,C,E/ZINC/ 8-09 mouth. ity of COPPER 19:23: [place] (VISION-VIT 37 Medical E PRESERVE Branch ORAL) VITAMIN B 0 Yes Take by Univ ers COMPLEX (B 8-09 mouth. ity of COMPLEX 19:23: [place] ORAL) 37 Medical Branch CYANOCOBALA 2016-[address] Unive rs MIN/COBAMAM 8-09 under the ity of DIVINE (B12 19:23: tongue. [place] SL) 37 Medical Branch CYANOCOBALA 2016-[address] Unive rs MIN/COBAMAM 8-09 under the ity of DIVINE (B12 19:23: tongue. [place] SL) 37 Medical Branch naltrexone- 2016-0 Yes Take by Un hugo bupropion 8-09 mouth. ity of (CONTRAVE) 19:23: [place] 8-90 mg per 37 Medical tablet Branch VITS 2016-0 Yes Take by Univers A,C,E/ZINC/ 8-09 mouth. ity of COPPER 19:23: [place] (VISION-VIT 37 Medical E PRESERVE Branch ORAL) VITAMIN B Yes Take by Univ ers COMPLEX (B 8-09 mouth. ity of COMPLEX 19:23: [place] ORAL) 37 Medical Branch CYANOCOBALA Yes Place Unive rs MIN/COBAMAM 8-09 under the ity of DIVINE (B12 19:23: tongue. [place] SL) 37 Medical Branch naltrexone- 0 Yes Take by Un hugo bupropion 8-09 mouth. ity of (CONTRAVE) 19:23: [place] 8-90 mg per 37 Medical tablet Branch VITS 0 Yes Take by Univers A,C,E/ZINC/ 8-09 mouth. ity of COPPER 19:23: [place] (VISION-VIT 37 Medical E PRESERVE Branch ORAL) VITAMIN B Yes Take by Univ ers COMPLEX (B 8-09 mouth. ity of COMPLEX 19:23: [place] ORAL) 37 Medical Branch CYANOCOBALA Yes Place Unive rs MIN/COBAMAM 8-09 under the ity of DIVINE (B12 19:23: tongue. [place] SL) 37 Medical Branch naltrexone- Yes Take by Un hugo bupropion 8-09 mouth. ity of (CONTRAVE) 19:23: [place] 8-90 mg per 37 Medical tablet Branch VITS Yes Take by Univers A,C,E/ZINC/ 8-09 mouth. ity of COPPER 19:23: [place] (VISION-VIT 37 Medical E PRESERVE Branch ORAL) VITAMIN B Yes Take by Univ ers COMPLEX (B 8-09 mouth. ity of COMPLEX 19:23: [place] ORAL) 37 Medical Branch CYANOCOBALA Yes Place Unive rs MIN/COBAMAM 8-09 under the ity of DIVINE (B12 19:23: tongue. [place] SL) 37 Medical Branch naltrexone- 0 Yes Take by Un hugo bupropion 8-09 mouth. ity of (CONTRAVE) 19:23: [place] 8-90 mg per 37 Medical tablet Branch VITS 0 Yes Take by Univers A,C,E/ZINC/ 8-09 mouth. ity of COPPER 19:23: [place] (VISION-VIT 37 Medical E PRESERVE Branch ORAL) VITAMIN B 2017- Yes Take by Univ ers COMPLEX (B 8-09 mouth. ity of COMPLEX 19:23: [place] ORAL) 37 Medical Branch CYANOCOBALA 2016- Yes Place Unive rs MIN/COBAMAM 8-09 under the ity of DIVINE (B12 19:23: tongue. [place] SL) 37 Medical Branch naltrexone- 0 Yes Take by Un hugo bupropion 8-09 mouth. ity of (CONTRAVE) 19:23: [place] 8-90 mg per 37 Medical tablet Branch VITS 0 Yes Take by Univers A,C,E/ZINC/ 8-09 mouth. ity of COPPER 19:23: [place] (VISION-VIT 37 Medical E PRESERVE Branch ORAL) VITAMIN B Yes Take by Univ ers COMPLEX (B 8-09 mouth. ity of COMPLEX 19:23: [place] ORAL) 37 Medical Branch CYANOCOB[address]A Yes Place Unive rs MIN/COBAMAM 8-09 under the ity of DIVINE (B12 19:23: tongue. [place] SL) 37 Medical Branch naltrexone- 0 Yes Take by Un hugo bupropion 8-09 mouth. ity of (CONTRAVE) 19:23: [place] 8-90 mg per 37 Medical tablet Branch VITS Yes Take by Univers A,C,E/ZINC/ 8-09 mouth. ity of COPPER 19:23: [place] (VISION-VIT 37 Medical E PRESERVE Branch ORAL) VITAMIN B Yes Take by Univ ers COMPLEX (B 8-09 mouth. ity of COMPLEX 19:23: [place] ORAL) 37 Medical Branch CYANOCOBALA Yes Place Unive rs MIN/COBAMAM 8-09 under the ity of DIVINE (B12 19:23: tongue. [place] SL) 37 Medical Branch naltrexone- 0 Yes Take by Un hugo bupropion 8-09 mouth. ity of (CONTRAVE) 19:23: [place] 8-90 mg per 37 Medical tablet Branch VITS 2016-0 Yes Take by Univers A,C,E/ZINC/ 8-09 mouth. ity of COPPER 19:23: [place] (VISION-VIT 37 Medical E PRESERVE Branch ORAL) VITAMIN B Yes Take by Univ ers COMPLEX (B 8-09 mouth. ity of COMPLEX 19:23: [place] ORAL) 37 Medical [place] CYANOCOBALA 2017-[address] Unive rs MIN/COBAMAM 11-04 under the ity of DIVINE (B12 19:23: tongue. [place] SL) 37 Medical Branch levothyroxi 2017-0 Yes Univer s ne 25 mcg 8-08 ity of tablet 00:00: [place] [facility] levothyroxi 2017-0 Yes Univer s ne 25 mcg 8-08 ity of tablet 00:00: [place] [facility] levothyroxi 2017-0 Yes Univer s ne 25 mcg 8-08 ity of tablet 00:00: [place] [facility] levothyroxi 2017-0 Yes Univer s ne 25 mcg 8-08 ity of tablet 00:00: [place] [facility] levothyroxi 2017-0 Yes Univer s ne 25 mcg 8-08 ity of tablet 00:00: [place] [facility] levothyroxi 2017-0 Yes Univer s ne 25 mcg 8-08 ity of tablet 00:00: [place] [address] Medical Branch levothyroxi 2017-0 Yes Univer s ne 25 mcg 8-08 ity of tablet 00:00: [place] [address] Medical Branch levothyroxi 2017-0 Yes Univer s ne 25 mcg 8-08 ity of tablet 00:00: [place] [address] Medical Branch levothyroxi 2017-0 Yes Univer s ne 25 mcg 8-08 ity of tablet 00:00: [place] [facility] levothyroxi 2017-0 Yes Univer s ne 25 mcg 8-08 ity of tablet 00:00: [place] [address] Medical Branch levothyroxi 2017-0 Yes Univer s ne 25 mcg 8-08 ity of tablet 00:00: [place] [facility] levothyroxi 2017-0 Yes Univer s ne 25 mcg 8-08 ity of tablet 00:00: [place] [address] Medical Branch CARTIA XT 2017-0 Yes Univers 180 mg 24 8-02 ity of hr capsule 00:00: [place] [facility] CARTIA XT 2017-0 Yes Univers 180 mg 24 8-02 ity of hr capsule 00:00: [place] [facility] CARTIA XT [id number] Yes Univers 180 mg 24 8-02 ity of hr capsule 00:00: [place] [facility] CARTIA XT 2017-0 Yes Univers 180 mg 24 8-02 ity of hr capsule 00:00: [place] [address] Medical [place] CARTIA XT 2017-0 Yes Univers 180 mg 24 8- ity of hr capsule 00:00: [place] [facility] CARTIA XT 2017-0 Yes Univers 180 mg 24 8- ity of hr capsule 00:00: [place] [facility] CARTIA XT 2017-0 Yes Univers 180 mg 24 8- ity of hr capsule 00:00: [place] [facility] CARTIA XT 2017-0 Yes Univers 180 mg 24 8- ity of hr capsule 00:00: [place] [facility] CARTIA XT 2017-0 Yes Univers 180 mg 24 8- ity of hr capsule 00:00: [place] [facility] CARTIA XT 2017-0 Yes Univers 180 mg 24 8- ity of hr capsule 00:00: [place] [facility] CARTIA XT 2017-0 Yes Univers 180 mg 24 8- ity of hr capsule 00:00: [place] [facility] CARTIA XT 2016-0 Yes Univers 180 mg 24 8- ity of hr capsule 00:00: [place] [facility] losartan-hy 2017-0 Yes Univer s drochloroth 7-31 ity of iazide 00:00: [place] 100-25 mg 00 Medical per tablet Branch losartan-hy 2017-0 Yes Univer s drochloroth 7-31 ity of iazide 00:00: [place] 100-25 mg 00 Medical per tablet Branch losartan-hy 2017-0 Yes Univer s drochloroth 7-31 ity of iazide 00:00: [place] 100-25 mg 00 Medical per tablet Branch losartan-hy 2017-0 Yes Univer s drochloroth 7-31 ity of iazide 00:00: [place] 100-25 mg 00 Medical per tablet Branch losartan-hy 2017-0 Yes Univer s drochloroth 7-31 ity of iazide 00:00: [place] 100-25 mg 00 Medical per tablet Branch losartan-hy 2017-0 Yes Univer s drochloroth 7-31 ity of iazide 00:00: [place] 100-25 mg 00 Medical per tablet Branch losartan-hy 2017-0 Yes Univer s drochloroth 7-31 ity of iazide 00:00: [place] 100-25 mg 00 Medical per tablet Branch losartan-hy 2017-0 Yes Univer s drochloroth 7-31 ity of iazide 00:00: [place] 100-25 mg 00 Medical per tablet Branch losartan-hy 2017-0 Yes Univer s drochloroth 7-31 ity of iazide 00:00: [place] 100-25 mg 00 Medical per tablet Branch losartan-hy 2017-0 Yes Univer s drochloroth 7-31 ity of iazide 00:00: [place] 100-25 mg 00 Medical per tablet Branch losartan-hy 2017-0 Yes Univer s drochloroth 7-31 ity of iazide 00:00: [place] 100-25 mg 00 Medical per tablet Branch losartan-hy 2017-0 Yes Univer s drochloroth 7-31 ity of iazide 00:00: [place] 100-25 mg 00 Medical per tablet Branch Vital Signs Vital Name Observation Time Observation Value Comments Source Systolic blood 2020-03-07 14:53:00 130 mm[Hg] Univer sity of [facility] Diastolic blood 2020-03-07 14:53:00 77 mm[Hg] [facility] Heart rate 2020-03-07 14:53:00 91 /min Universi ty of [facility] Body height 2020-03-07 14:50:00 162.6 cm Universi ty of [facility] Body weight 2020-03-07 14:50:00 88.905 kg Universi ty of [facility] Branch BMI 2020-03-07 14:50:00 33.64 kg/m2 Universi ty of [facility] Systolic blood 2020-03-07 14:53:00 130 mm[Hg] Univer sity of [facility] Diastolic blood 2020-03-07 14:53:00 77 mm[Hg] Unive rsity of [facility] Heart rate 2020-03-07 14:53:00 91 /min Universi ty of [facility] Branch Body height 2020-03-07 14:50:00 162.6 cm Universi ty of [facility] Branch Body weight 2020-03-07 14:50:00 88.905 kg Universi ty of [facility] BMI 2020-03-07 14:50:00 33.64 kg/m2 Universi ty of [facility] Systolic blood 2020-01-22 19:52:00 134 mm[Hg] Univer sity of [facility] Diastolic blood 2020-01-22 19:52:00 76 mm[Hg] [facility] Heart rate 2020-01-22 19:52:00 73 /min [facility] Body height 2020-01-22 19:52:00 160 cm [facility] Body weight 2020-01-22 19:52:00 84.823 kg [facility] BMI 2020-01-22 19:52:00 33.13 kg/m2 [facility] Procedures Procedure Date / Time Performed Performing Clinician Nhan REYESU PRE-OP 2020-03-07 06:01:00 [facility]igned[facility] MR KNEE LEFT WO 2020-02-14 14:51:14 Precious Stanley [facility] REFERRAL- 2020-02-07 06:01:00 Doctor Unassigned, No [facility] REQUEST/RESPONSE [facility] XR KNEE 3 VW LEFT 2020-01-22 19:25:04 Precious Stanley [facility] ASSIGNMENT OF BENEFITS 2020-01-22 19:11:24 Doctor Unassigned, No [facility] Encounters Start End Encounter Admission Attending Care Care Encounter Source Date/Time Date/Time Type Type Clinicians Facility Department ID 2021-02-16 Outpatient KEFFER_A [facility] 1 [place] 13:33:35 [facility] 2021-02-16 Outpatient KEFFER_A [facility] 1 [place] 04:01:14 [id number] [facility] 2021-02-15 Outpatient KEFFER_A [facility] 0 [place] 22:33:42 927 [facility] 2021-02-15 Outpatient KEFFER_A [facility] 0 [place] 12:18:13 830 [facility] 2021-02-13 Outpatient KEFFER_A [facility] 1 [place] 13:14:23 118 [facility] 2021-02-12 Outpatient keffer_a [facility] [id number] [place] 11:28:57 [facility]8 [facility] 2021-02-11 Outpatient KEFFER_A [facility] 0 [place] 01:13:12 729 [facility] 2021-02-10 Outpatient KEFFER_A [facility] 0 [place] 23:25:01 726 [facility] 2021-02-10 Outpatient KEFFER_A [facility] [id number] 0 [place] 06:34:15 622 [facility] 2021-02-10 Outpatient KEFFER_A [facility] 0 [place] 04:21:50 617 [facility] 2021-02-09 Outpatient KEFFER_A [facility] 0 [place] 22:54:43 603 [facility] 2021-02-08 Outpatient KEFFER_A [facility] 0 [place] 05:17:29 413 [facility] 2021-02-08 Outpatient KEFFER_A [facility] 0 [place] 00:18:34 324 [facility] 2021-02-13 2021-02-13 Outpatient DelaneyValeria [facility] [id number] 00:00:00 00:00:00 Aiyana [id number] 2021-01-23 2021-01-23 Outpatient Valeria Escobar [facility] [id number] 00:00:00 00:00:00 Aiyana [id number] 2020-12-23 Outpatient Valeria Escobar [facility] [id number] 00:00:00 00:00:00 Aiyana [id number] 2020-10-24 2020-10-24 Outpatient Tez [facility] [id number] 00:00:00 00:00:00 [place] [id number] Higuera [id number] 2020-10-08 2020-10-08 Outpatient Tez [facility] [id number] 00:00:00 00:00:00 [place] [id number] Higuera [id number] 2020-09-12 2020-09-12 Outpatient Tez [facility] [id number] 00:00:00 00:00:00 [place] [id number] Higuera [id number] 2020-08-29 2020-08-29 Outpatient Valeria Escobar [facility] [id number] 00:00:00 00:00:00 Aiyana [id number] 2020-07-09 2020-07-09 Outpatient Valeria Escobar [facility] [id number] 00:00:00 00:00:00 Aiyana [id number] 2020-06-19 2020-06-19 Outpatient Valeria Escobar [facility] [id number] 00:00:00 00:00:00 Aiyana [id number] 2020-03-08 2020-03-08 Telephone [facility] [id number] [facility] 00:00:00 00:00:00 Precious Hernandez [facility] [id number] it y of Surgical [id number] [place] as Specialti [id number] [place] dical es [address] [place] 2020-03-07 2020-03-07 Office [facility] [id number] 08:46:43 09:23:25 Visit Precious L [facility] [id number] Surgical 4.2.7.2.686 Specialti [id number] es [address] [place] 2020-03-07 2020-03-07 Office [facility] [id number] Univers 08:46:43 09:23:25 Visit Precious Hernandez [facility] [id number] it y of Surgical 4.2.7.2.686 [place] as Specialti [id number] [place] dical es [address] [place] 2020-03-07 2020-03-07 Outpatient R RUDDY [facility] [id number] Univers 08:45:00 08:45:00 PRECIOUS [id number] ity of [facility] 2020-03-07 2020-03-07 Outpatient R RUDDY [facility] [id number] Univers 08:45:00 08:45:00 PRECIOUS ity [facility] 2020-03-07 2020-03-07 Orders Doctor WADE [id number] 00:00:00 00:00:00 Only Unassigned, CECILIA [id number] [facility] [id number] [id number] 2020-03-07 2020-03-07 Orders Doctor SHERI [id number] Univers 00:00:00 00:00:00 Only Unassigned, CECILIA [id number] ity of [facility] 4.2.7.2.686 Thomas as [id number] [address] 2020-02-14 2020-02-14 [facility] [id number] Univers 07:36:30 23:59:00 Encounter Precious Ortiz [id number] ity of [place] 4.2.7.2.686 [place] [facility] [id number] [facility] 804 [place] 2020-02-14 2020-02-14 Outpatient R RUDDY [facility] [id number] Univers 00:00:00 00:00:00 PRECIOUS [id number] ity of [facility] 2020-02-14 2020-02-14 Outpatient R RUDDY [facility] [id number] Univers 00:00:00 00:00:00 PRECIOUS ity [facility] 2020-02-07 2020-02-07 Orders Doctor WADE [id number] Univers 00:00:00 00:00:00 Only Unassigned, CECILIA [id number] ity of [facility] 4.2.7.2.686 Thomas as [id number] [address] 2020-02-06 2020-02-06 Telephone [facility] [id number] Univers 00:00:00 00:00:00 Precious Hernandez [facility] [id number] it y of Surgical 4.2.7.2.686 [place] as Specialti [id number] [place] dical es 198 [facility] 2020-01-22 2020-01-22 Hospital [facility] [id number] Univers 14:11:43 23:59:00 Encounter Precious Ortiz [id number] ity of [place] 4.2.7.2.686 [id number] 807 [place] 2020-01-22 2020-01-22 Office [facility] [id number] Univers 14:42:46 15:06:37 Visit Precious [place] 350.1.13.10 it y of Surgical 4.2.7.2.686 [place] as Specialti [id number] [place] dicmi es 198 [facility] 2020-01-22 2020-01-22 [id number] Univers 15:00:00 15:00:00 PRECIOUS [id number] ity [facility] 2020-01-22 2020-01-22 Outpatient R [facility] [id number] Univers 15:00:00 15:00:00 [facility] 2020-01-22 2020-01-22 Orders Doctor SHERI [id number] Univers 00:00:00 00:00:00 Only Unassigned, CECILIA 350.1.13.10 ity of [facility] 4.2.7.2.686 Thomas as [id number] [facility] 009 [place] 2020-01-22 2020-01-22 Telephone [facility] [id number] Univers 00:00:00 00:00:00 Precious Hernandez [facility] [id number] it y of Surgical 4.2.7.2.686 [place] as Specialti [id number] [place] dical es 198 [facility] Results Test Description Test Time Test Results Result Source Comments Comments MR KNEE LEFT WO 2020-01-28 HISTORY: Persistent University of CONTRAST 8 chronic pain in the [facility] 14:58:54 left knee. TECHNIQUE: [facility] MR imaging of the left knee was done in multiple projectionsusing 1.5T MR unit and standard protocol. FINDINGS: BONE AND JOINT: Small knee joint effusion and an irregular multilocularshaped 5 x 1 x 3 cm Moncada's cyst noted. Small amount of fluid is seen inthe popliteal bursa. 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 MENISCI: Lateral meniscus is intact. Medial meniscus, however, showedlarge, linear, nondisplaced tears involving the body portion extending intothe posterior horn. LIGAMENTS AND TENDONS: The patellar tendon, quadriceps complex, cruciateligaments and collateral ligaments are intact. Proximal tendon of the medial gastrocnemius tendon and proximal smallportion of lateral collateral ligament are slightly swollen. CONCLUSIONS:1. 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 Complex, predominantly linear, horizontal displaced tears in the body ofthe medial meniscus, extending into posterior horn.[facility], Radiant Results Inft User - 02/14/2020 9:00 AM CSTHISTORY: Persistent chronic pain in the left knee.TECHNIQUE: MR imaging of the left knee was done in multiple projectionsusing 1.5T MR unit and standard protocol.FINDINGS: BONE AND JOINT: Small knee joint effusion and an irregular multilocularshaped 5 x 1 x 3 cm Moncada's cyst noted. 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 Medial meniscus, however, showedlarge, linear, nondisplaced tears involving the body portion extending intothe posterior horn.LIGAMENTS AND TENDONS: The patellar tendon, quadriceps complex, cruciateligaments and collateral ligaments are intact. Proximal tendon of the medial gastrocnemius tendon and proximal smallportion of lateral collateral ligament are slightly swollen.CONCLUSIONS:1. 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 Complex, predominantly linear, horizontal displaced tears in the body ofthe medial meniscus, extending into posterior horn. XR KNEE 3 VW 2019-12-29 1. ?No fracture. RL: [employer] LEFT 6 1105 Electronically [facility] 19:41:38 signed by Ruby Andrade MD at 01/22/2020 2:41 PMHISTORY: ?left knee pain COMPARISON: ?None. FINDINGS: 3 views of the left knee demonstrate normal alignment. ?No fracture,foreign body, or focal osseous lesion is identified. Mild degenerative changes are present. There is medial compartmentnarrowing. Osteophyte formation seen in the patellofemoral compartment. [facility], Radiant Results Inft User - 01/22/2020 2:42 PM CDTHISTORY: left knee pain COMPARISON: None.FINDINGS:3 views of the left knee demonstrate normal alignment. No fracture,foreign body, or focal osseous lesion is identified.Mild degenerative changes are present. There is medial compartmentnarrowing. Osteophyte formation seen in the patellofemoral compartment.IMPRESSION 1. No fracture.RL: 1105
[2021-02-24] MEDS ORDERED: LIDOCAINE VISCOUS 2% SOLN 15 ML UDC ONE (20:24)
[2021-02-24] MEDS ORDERED: MAGNES/ALUMIN/SIMET 30ML UCUP ONE (20:24)
[2021-02-24 20:46] LABS: Basophils % 0.5 % (0-1.3); Lymphocytes % 27.5 % (15.3-44.8); MPV 7.4 fL (7.6-11.3); RBC Red Blood Cell Count 4.13 M/uL (3.86-4.86)
[2021-02-24 21:04] LABS: Bilirubin Direct 0.1 mg/dL (0-0.2); Bilirubin Total 0.3 mg/dL (0.2-1.0); Potassium 3.2 mmol/L (3.5-5.1); Protein, Total 7.8 g/dL (6.4-8.2)
--- NOTE | 2021-02-24 21:52 | RAD REPORT ---
EXAM DESCRIPTION: CTAbdomen Pelvis W Contrast - 02/24/2021 9:26 pm CLINICAL HISTORY: Abdominal pain. upper abd pain COMPARISON: Abdomen Pelvis W Contrast dated 07/09/2020; Abdomen Pelvis W Contrast dated 06/21/2020 ; Abdomen Pelvis W Contrast dated 10/26/2015 TECHNIQUE: Biphasic CT imaging of the abdomen and pelvis was performed with 100 ml non-ionic IV cont rast. All CT scans are performed using dose optimization technique as appropriate and may include automated exposure control or mA/KV adjustment according to patient size. FINDINGS: The lung bases are clear. There is a crescentic shaped fluid collection surrounding the right lobe of the liver measuring up to 12 mm in maximum thickness. The density of this fluid is slightly increased. There is focal indentat ion in the right posterior hepatic lobe measuring up to 10-12 mm in thickness. There is an additional poorly defined lesion along the right inferior hepatic lobe measuring up to 14 mm in thickness. Chol ecystectomy clips. The spleen, pancreas, adrenal glands and kidneys are within normal limits. Small slightly inflamed soft tissue masses are seen along the anterior omentum, on the left measuring 18 mm and on the right measuring 9 mm. Several additional subcentimeter similar deposits are seen. The spleen, pancreas, adrenal glands and kidneys show no abnormal finding. No evidence of significan t lymphadenopathy. Moderate lumbar degenerative changes are present. IMPRESSION: Perihepatic abnormal findings and soft tissue implants in the greater omentum are suspic ious for a peritoneal neoplastic or metastatic process. A clear source this process is not definitive ly identified on this study.
--- NOTE | 2021-02-24 22:20 | ER ---
Nurse's Notes [facility] Name: Chanel Martinez Age: 75 yrs Sex: Female : 1945 Arrival Date: 02/24/2021 Time: 18:42 Bed 10 Private MD: Diagnosis: Upper abdominal pain, unspecified;Other intra-abdominal and pelvic swelling, mass and lump-Liver and omentum Presentation: 02/24 19:45 Chief complaint: Patient states: she is having upper abdominal pain. Coronavirus kd3 screen: At this time, the client does not indicate any symptoms associated with coronavirus-19. Ebola Screen: No symptoms or risks identified at this time. Initial Sepsis Screen: Does the patient meet any 2 criteria? No. Patient's initial sepsis screen is negative. Does the patient have a suspected source of infection? No. Patient's initial sepsis screen is negative. Risk Assessment: Do you want to hurt yourself or someone else? Patient reports no desire to harm self or others. Onset of symptoms was February 24, 2021. 19:45 Method Of Arrival: Ambulatory kd3 19:45 Acuity: RYAN 3 kd3 Triage Assessment: 20:25 General: Appears in no apparent distress. Behavior is calm, cooperative. Pain: cc4 Complains of pain in epigatrium \T\ right upper quad abdomen. Historical: - Allergies: 22:20 Augmentin; kd3 22:20 PENICILLINS; kd3 - Home Meds: 22:20 levothyroxine 50 mcg tab 1 tab once daily [Active]; losartan-hydrochlorothiazide 100-25 kd3 mg Oral tab 1 tab once daily [Active]; diltiazem HCl 120 mg Oral CDER 1 cap once daily [Active]; pantoprazole oral [Active]; levothyroxine oral [Active]; Preser vision [Active]; Tumeric [Active]; Vitamin D3 oral [Active]; - PMHx: 22:20 GERD; Hypertension; Hypothyroidism; Tachycardia; kd3 - Immunization history:: Adult Immunizations up to date, Client reports having NOT received the Covid vaccine. - Social history:: Smoking status: unknown. - Family history:: not pertinent. - Hospitalizations: : No recent hospitalization is reported. Screenin:10 Abuse screen: Denies threats or abuse. Nutritional screening: No deficits noted. cc4 Tuberculosis screening: No symptoms or risk factors identified. Fall Risk None identified. Assessment: 20:25 General: Appears distressed, Behavior is calm, cooperative. Pain: Complains of pain in cc4 Epigastric \T\ right upper quad abdominal pain Pain radiates to right upper quad abdomin to epigatrium. Pain currently is 8 out of 10 on a pain scale. at worst was 10 out of 10 on a pain scale. Quality of pain is described as aching, sharp, Pain began 2-3 days ago. Is intermittent, Alleviated by nothing. Neuro: No deficits noted. Level of Consciousness is awake, alert, obeys commands, Oriented to person, place, time, situation. Cardiovascular: No deficits noted. Heart tones S1 S2. Respiratory: No deficits noted. Airway is patent Respiratory effort is even, unlabored, Respiratory pattern is regular, symmetrical. GI: Abdomen is non-distended, Bowel sounds present X 4 quads. Abd is soft and non tender X 4 quads. : No signs and/or symptoms were reported regarding the genitourinary system. EENT: No signs and/or symptoms were reported regarding the EENT system. Derm: No deficits noted. Skin is intact. Musculoskeletal: No signs and/or symptoms reported regarding the musculoskeletal system. Capillary refill < 3 seconds, Range of motion: intact in all extremities, GI cocktail given as ordered, kira. well. 20:30 Reassessment: # 20 g angiocath inserted left AC x 1 attempt with blood drawn \T\ sent to 4 lab. Vital Signs: 19:45 Weight 81.19 kg (R); Height 5 ft. 3 in. (160.02 cm); kd3 20:25 BP 149 / 74; Pulse 88; Resp 20 S; Temp 98.2(O); Pulse Ox 97% on R/A; cc4 22:35 BP 134 / 75; Pulse 89; Resp 20 S; Temp 98.0(O); Pulse Ox 98% on R/A; cc4 19:45 Body Mass Index 31.71 (81.19 kg, 160.02 cm) 3 ED Course: 18:42 Patient arrived in ED. ds1 19:39 Scott Garza MD is Attending Physician. rn 19:45 Arm band placed on Patient placed in an exam room, on a stretcher, on pulse oximetry. kd3 Family accompanied patient. 20:23 Bonita Arndt, RN is Primary Nurse. cc4 20:28 Inserted saline lock: 20 gauge in left antecubital area, using aseptic technique. Blood sm5 collected. 20:30 CT Abd/Pelvis - IV Contrast Only Sent. cc4 20:30 Basic Metabolic Panel Sent. cc4 20:30 CBC with Diff Sent. cc4 20:30 Hepatic Function Sent. cc4 20:30 Lipase Sent. cc4 21:10 Patient has correct armband on for positive identification. Placed in gown. Bed in low cc4 position. Call light in reach. Side rails up X 1. Pulse ox on. NIBP on. 21:26 CT Abd/Pelvis - IV Contrast Only In Process Unspecified. EDMS 22:20 Triage completed. kd3 22:35 No provider procedures requiring assistance completed. cc4 22:35 No provider procedures requiring assistance completed. cc4 22:35 IV discontinued, intact, bleeding controlled, No redness/swelling at site. Pressure cc4 dressing applied. Administered Medications: 20:25 Drug: GI Cocktail without - (Maalox Suspension 30 ml, Lidocaine Liquid 2 % 15 cc4 ml) Route: PO; 21:35 Follow up: Response: No adverse reaction; Pain is decreased cc4 Outcome: 22:19 Discharge ordered by . rn 22:35 Discharged to home ambulatory. cc4 22:35 Condition: stable 22:35 Discharge instructions given to patient, Instructed on discharge instructions, follow up and referral plans. Demonstrated understanding of instructions, follow-up care. 22:42 Patient left the ED. cc4 Signatures: Dispatcher [employer] [facility] MurphyGena 1 Scott Garza MD MD rn Cooper, Christie, RN RN cc4 Amy Dumont RN RN kd3 Grace Quintero, RN RN sm5 Corrections: (The following items were deleted from the chart) 22:55 21:10 General: Appears distressed, Behavior is calm, cooperative, cc4 cc4 22:55 21:10 Pain: Complains of pain in Epigastric \T\ right upper quad abdominal pain Pain cc4 radiates to right upper quad abdomin to epigatrium. Pain currently is 8 out of 10 on a pain scale. at worst was 10 out of 10 on a pain scale. Quality of pain is described as aching, sharp, Pain began 2-3 days ago. Is intermittent, Alleviated by nothing. cc4 :55 21:10 Neuro: No deficits noted. Level of Consciousness is awake, alert, obeys commands, cc4 Oriented to person, place, time, situation, cc4 :55 21:10 Cardiovascular: No deficits noted. Heart tones S1 S2 cc4 cc4 :55 21:10 Respiratory: No deficits noted. Airway is patent Respiratory effort is even, cc4 unlabored, Respiratory pattern is regular, symmetrical, cc4 :55 21:10 GI: Abdomen is non-distended, Bowel sounds present X 4 quads. Abd is soft and non cc4 tender X 4 quads. cc4 :55 21:10 : No signs and/or symptoms were reported regarding the genitourinary system. cc4cc4 : 21:10 EENT: No signs and/or symptoms were reported regarding the EENT system. cc4 cc4 :55 21:10 Derm: No deficits noted. Skin is intact, cc4 4 : 21:10 Musculoskeletal: No signs and/or symptoms reported regarding the musculoskeletal cc4 system. Capillary refill < 3 seconds, Range of motion: intact in all extremities, cc4 :55 21:15 Reassessment: # 20 g angiocath inserted left AC x 1 attempt with blood drawn \T\ cc4 sent to lab. cc4 :56 20:25 Musculoskeletal: No signs and/or symptoms reported regarding the musculoskeletal cc4 system. Capillary refill < 3 seconds, Range of motion: intact in all extremities, cc4 22:58 21:10 BP 149 / 74; Pulse 88bpm; Resp 20bpm; Spontaneous; Pulse Ox 97% RA; Temp 98.2F cc4 Oral; cc4
--- NOTE | 2021-02-24 22:20 | EDPHYS ---
Physician Documentation [facility] Name: Chanel Martinez Age: 75 yrs Sex: Female : 1945 Arrival Date: 02/24/2021 Time: 18:42 Bed 10 Private MD: ED Physician Scott Garza HPI: 02/24 20:13 This 75 yrs old Female presents to ER via Unassigned with complaints of upper rn abd pain. 20:13 The patient presents with abdominal pain in the upper abdomen, in the right upper rn quadrant. Onset: The symptoms/episode began/occurred 2 day(s) ago. The symptoms do not radiate. Associated signs and symptoms: Pertinent negatives: anorexia, blood in stools, chest pain, constipation, diarrhea, dysuria, fever, headache, hematuria, nausea, shortness of breath, vomiting, vomiting blood. The symptoms are described as burning. Modifying factors: The symptoms are alleviated by nothing, the symptoms are aggravated by touching the area. Severity of pain: At its worst the pain was moderate in the emergency department the pain is unchanged. The patient has experienced a previous episode. The patient has been recently seen by a physician:. Patient reports a couple of days of upper abdominal pain, focused in the right upper quadrant, seen for this yesterday at [facility] with a negative CT abdomen. Has had cholecystectomy already. Not worsened by eating. No vomiting or diarrhea. No trauma. No chest pain or difficulty breathing. States abdominal pain got better but then came back so wants to know what is going on. Denies any blood in stool or dark stool. Historical: - Allergies: 22:20 Augmentin; kd3 22:20 PENICILLINS; kd3 - Home Meds: 22:20 levothyroxine 50 mcg tab 1 tab once daily [Active]; losartan-hydrochlorothiazide 100-25 kd3 mg Oral tab 1 tab once daily [Active]; diltiazem HCl 120 mg Oral CDER 1 cap once daily [Active]; pantoprazole oral [Active]; levothyroxine oral [Active]; Preser vision [Active]; Tumeric [Active]; Vitamin D3 oral [Active]; - PMHx: 22:20 GERD; Hypertension; Hypothyroidism; Tachycardia; kd3 - Immunization history:: Adult Immunizations up to date, Client reports having NOT received the Covid vaccine. - Social history:: Smoking status: unknown. - Family history:: not pertinent. - Hospitalizations: : No recent hospitalization is reported. ROS: 20:13 Constitutional: Negative for fever, chills, and weight loss, Eyes: Negative for injury, rn pain, redness, and discharge, Neck: Negative for injury, pain, and swelling, Cardiovascular: Negative for chest pain, palpitations, and edema, Respiratory: Negative for shortness of breath, cough, wheezing, and pleuritic chest pain, Abdomen/GI: Positive for right upper quadrant abdominal pain, negative for vomiting or diarrhea Back: Negative for injury and pain, : Negative for injury, bleeding, discharge, and swelling, MS/Extremity: Negative for injury and deformity, Skin: Negative for injury, rash, and discoloration, Neuro: Negative for headache, weakness, numbness, tingling, and seizure. Exam: 20:13 Constitutional: This is a well developed, well nourished patient who is awake, alert, rn holding right upper quadrant while talking and moving Head/Face: Normocephalic, atraumatic. Eyes: Periorbital areas with no swelling, redness, or edema. Cardiovascular: Regular rate and rhythm. No pulse deficits. Respiratory: No increased work of breathing, no retractions or nasal flaring. Abdomen/GI: Soft, mild tenderness right upper quadrant and epigastric region without peritoneal signs, no masses Back: Full range of motion. Skin: Warm, dry MS/ Extremity: Pulses equal, no cyanosis. Neurovascular intact. Full, normal range of motion. Equal circumference. Neuro: Awake and alert, GCS 15 Vital Signs: 19:45 Weight 81.19 kg (R); Height 5 ft. 3 in. (160.02 cm); kd3 20:25 BP 149 / 74; Pulse 88; Resp 20 S; Temp 98.2(O); Pulse Ox 97% on R/A; cc4 22:35 BP 134 / 75; Pulse 89; Resp 20 S; Temp 98.0(O); Pulse Ox 98% on R/A; cc4 19:45 Body Mass Index 31.71 (81.19 kg, 160.02 cm) kd3 MDM: 19:39 Patient medically screened. rn 22:15 Differential diagnosis: bowel obstruction, diverticulitis, gastritis, gastroesophageal rn reflux disease, Hepatitis, non-specific abd pain, pancreatitis, Peptic Ulcer Disease. Data reviewed: vital signs, nurses notes, lab test result(s), radiologic studies, CT scan, and as a result, I will discharge patient. Counseling: I had a detailed discussion with the patient and/or guardian regarding: the historical points, exam findings, and any diagnostic results supporting the discharge/admit diagnosis, lab results, radiology results, the need for outpatient follow up, to return to the emergency department if symptoms worsen or persist or if there are any questions or concerns that arise at home. Response to treatment: the patient's symptoms have mildly improved after treatment, and as a result, I will discharge patient. Special discussion: Based on the patient's Hx, exam, and Dx evaluation, there is no indication for emergent surgery or inpatient Tx. It is understood by the patient/guardian that if the Sx's persist or worsen they need to return immediately for re-evaluation. I discussed with the patient/guardian in detail that at this point there is no indication for admission to the hospital. It is understood, however, that if the symptoms persist or worsen the patient needs to return immediately for re-evaluation. Based on the history and exam findings, there is no indication for further emergent testing or inpatient evaluation. I discussed with the patient/guardian the need to see the hall monitor for further evaluation of the symptoms. I discussed with the patient/guardian the need to see the general surgeon for further evaluation of the symptoms. I discussed with the patient/guardian the need to see the primary care provider for further evaluation of the symptoms. ED course: CT abdomen without any acute findings. CT from [facility] was actually from 1 month ago I misread the dates. Same omental findings and hepatic spots but now has small amount of fluid around the liver. Main concern is possible omental cancer or metastatic cancer. Patient has already seen Dr. Boyce and they are in the process of referral to somebody for biopsy and further work-up. Patient is to call Dr. Boyce tomorrow and get a follow-up. Explained everything to patient and understands need for further work-up and possibility of malignancy.. 02/24 19:49 Order name: Basic Metabolic Panel; Complete Time: 21: rn 02/24 19:49 Order name: CBC with Diff; Complete Time: 21: rn 02/24 19:49 Order name: Hepatic Function; Complete Time: 21:09 rn 02/24 19:49 Order name: Lipase; Complete Time: 21:09 rn 02/24 19:49 Order name: CT Abd/Pelvis - IV Contrast Only; Complete Time: 21:56 rn 02/24 19:49 Order name: IV Saline Lock; Complete Time: 20:27 rn 02/24 19:49 Order name: Labs collected and sent; Complete Time: 20:27 rn Administered Medications: 20:25 Drug: GI Cocktail without - (Maalox Suspension 30 ml, Lidocaine Liquid 2 % 15 cc4 ml) Route: PO; 21:35 Follow up: Response: No adverse reaction; Pain is decreased cc4 Disposition Summary: 02/24/21 22:19 Discharge Ordered Location: Home rn Problem: an ongoing problem rn Symptoms: have improved rn Condition: Stable rn Diagnosis - Upper abdominal pain, unspecified rn - Other intra-abdominal and pelvic swelling, mass and lump - Liver and omentum rn Followup: rn - With: Private Physician - When: As needed - Reason: Recheck today's complaints, Re-evaluation by your physician Discharge Instructions: - Discharge Summary Sheet rn - Abdominal Pain, Adult rn Forms: - Medication Reconciliation Form rn - Thank You Letter rn - Antibiotic international 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 with a negative CT abdomen. Has had cholecystectomy already. Not worsened by eating. No vomiting or diarrhea. No trauma. No chest pain or difficulty breathing. States abdominal pain got better but then came back so wants to know what is going on.. rn
== END 2021-02-24 22:42 | disposition home or self-care (01) ==
LOC: ER 18:40
DX: R10.10 Upper abdominal pain, unspecified (principal); R19.00 Intra-abdominal and pelvic swelling, mass and lump, unspecified site; Z88.0 Allergy status to penicillin; Z88.1 Allergy status to other antibiotic agents; E03.8 Other specified hypothyroidism; I10 Essential (primary) hypertension
CPT/HCPCS: 85025; 80048; 36415; 80076; 83690; 74177; 99284; Q9967

== ENCOUNTER 2021-03-04 08:27 | Day surgery (SDC) | payer OTHER ==
[2021-03-04 09:00] LABS: Protime INR 1.02
[2021-03-04] MEDS ORDERED: NA CHLORIDE 0.9% 1,000 ML ONE (09:47)
[2021-03-04] MEDS ORDERED: MIDAZOLAM HCL 2 MG/2 ML INJ ONE (10:03)
[2021-03-04] MEDS ORDERED: FENTANYL CITR 100 MCG/2 ML ONE (10:03)
[2021-03-04] MEDS ORDERED: NALOXONE 0.4 MG/ML VIAL ONE (10:03)
[2021-03-04 10:42] VITALS: O2SAT 98; BMI 31.5
[2021-03-04] MEDS ORDERED: HYDROCODONE/APAP 7.5/325 MG TAB ONE (11:16)
--- NOTE | 2021-03-04 13:26 | RAD REPORT ---
EXAM DESCRIPTION: US - BX ABD/RETRO PERC/US GUIDE - 03/04/2021 10:58 am CLINICAL HISTORY: N COMPARISON: No comparisons FINDINGS: Preoperative diagnosis: Right perihepatic implant. Post operative diagnosis: Same. Conscious Sedation: Yes Fluoroscopy time: None Contrast used: None Estimated blood loss: Minimal Specimens: 1 x 22 gauge FNA. 2 x 18 gauge core biopsy The right upper quadrant was prepped and draped in the usual sterile fashion. 1% lidocaine was infilt rated into the subcutaneous tissues for local anesthesia. Real time ultrasound scanning of the right upper quadrant demonstrated the perihepatic lesion. First, an FNA was performed under ultrasound guid ance. This was sent to pathology for a touch prep and review by the pathologist. No malignant cells i dentified. Next, under ultrasound guidance, using a 18-gauge, 6 cm long, 2 cm throw core biopsy gun, 2 specimens were obtained of this lesion and sent to pathology for evaluation. There were no complica tions. IMPRESSION: Technically successful ultrasound-guided fine needle aspiration core biopsy of a capsula r implant along the liver. No immediate complications. Conscious sedation was utilized.
[2021-03-04 17:10] VITALS: BP 108/67; TEMP 98
== END 2021-03-04 14:25 | disposition home or self-care (01) ==
LOC: DS 08:27
PROVIDERS: ATTEND Surgery
DX: R19.07 Generalized intra-abdominal and pelvic swelling, mass and lump (principal)
CPT/HCPCS: 36415; 88108; 85610; 88305 ×2; 85730; 88333; 49180; 76942; J2250; J3010; J7030; 88307; J2310

== ENCOUNTER 2021-03-05 17:31 | Emergency (ER) | payer OTHER ==
--- OUTSIDE RECORDS SUMMARY | 2021-03-05 17:34 | XMS REPORT | Continuity of Care Document ---
:1945 Author Organization [facility] t Address [address] [place] [address] [address]. Bernal [address] [place] [address] Care Team Providers Name Role Phone DELANEY_Rody Attending Clinician Unavailable Aiyana Escobar Attending Clinician [phone] Kalen Reagan Attending Clinician [phone] Mary Stanley MD Attending Clinician Mary STANLEY Attending Clinician Unavailable Doctor Unassigned, Name Attending Clinician Unavailable delaney_rody Attending Clinician Unavailable DELANEY_Rody Admitting Clinician Unavailable delaney_rody Admitting Clinician Unavailable Payers Payer Name Policy Type Policy Number Effective Date Expiration Date S epi [employer] (MEDICARE [id number] REPLACEMENT/ADVANTA GE - PPO) AARP MEDICARE [id number] 2016 2020 COMPLETE 00:00:00 00:00:00 FORMERLY [facility] - [id number] MEDICARE SOLUTIONS - MEDICARE COMPLETE (MEDICARE REPLACEMENT PPO) Problems This patient has no known problems. Allergies, Adverse Reactions, Alerts Allergy Allergy Status Severity Reaction(s) Onset Inactive Treating Comm ents Source Name Type Date Date Clinician PENICILL Drug Active Anaphylaxis Uni vers INS Class 11-04 ity of 00:00: [place] [address] Medical Branch Penicill Propensi Active Anaphylaxis U nivers ins ty to 11-04 ity of adverse 00:00: [place] reaction Medical s Branch Social History Social Habit Start Date Stop Date Quantity Comments Source Exposure to Not sure [facility]-CoV-2 [facility] (event) Branch Sex Assigned At Universit y of [facility] Tobacco use and 2020-03-07 2020-03-07 Never used Universit y of exposure 00:00:00 00:00:00 [place] [facility] Alcohol intake 2020-03-07 2020-03-07 Lifetime University of 00:00:00 00:00:00 non-drinker [place] [facility] (finding) Branch History [facility] 2020-01-22 2020-01-22 1 University o f Alcohol Frequency 00:00:00 00:00:00 [place] [facility] ed[facility] History [facility] 2020-01-22 2020-01-22 99 University o f Alcohol Std 00:00:00 00:00:00 [place] [facility] Drinks Branch History [facility] 2020-01-22 2020-01-22 1 [place] o f Alcohol Binge 00:00:00 00:00:00 [place] [facility] Smoking Status Start Date Stop Date Source Never smoker [facility] Medical Branch Medications Ordered Filled Start Stop Current Ordering Indication Dosage Frequency Signature Comments Components Source Medication Medication Date Date Medication? Clinician (SIG) Name Name naltrexone- Yes Take by Un hugo bupropion 11-04 mouth. ity of (CONTRAVE) 19:23: [place] 8-90 mg per 37 Medical tablet Branch VITS Yes Take by Univers A,C,E/ZINC/ 11-04 mouth. ity of COPPER 19:23: [place] (VISION-VIT 37 Medical E PRESERVE Branch ORAL) VITAMIN B Yes Take by Univ ers COMPLEX (B 11-04 mouth. ity of COMPLEX 19:23: [place] ORAL) Medical Branch CYANOCOBALA Yes Place Unive rs MIN/COBAMAM 11-04 under the ity of DIVINE (B12 19:23: tongue. [facility]) Medical Branch naltrexone- Yes Take by Un [...] of COMPLEX 19:23: [place] ORAL) 37 Medical [place] CYANOCOBALA 2017-[address] Unive rs MIN/COBAMAM 11-04 under the ity of DIVINE (B12 19:23: tongue. [place] SL) 37 Medical Branch levothyroxi 2017-0 Yes Univer s ne 25 mcg 8-08 ity of tablet 00:00: [place] [facility] levothyroxi 2017-0 Yes Univer s ne 25 mcg 8-08 ity of tablet 00:00: [place] [facility] levothyroxi 2017-0 Yes Univer s ne 25 mcg 8-08 ity of tablet 00:00: [place] [facility] levothyroxi 2017-0 Yes Univer s ne 25 mcg 8-08 ity of tablet 00:00: [place] [facility] levothyroxi 2017-0 Yes Univer s ne 25 mcg 8-08 ity of tablet 00:00: [place] [facility] levothyroxi 2017-0 Yes Univer s ne 25 mcg 8-08 ity of tablet 00:00: [place] [address] Medical Branch levothyroxi 2017-0 Yes Univer s ne 25 mcg 8-08 ity of tablet 00:00: [place] [address] Medical Branch levothyroxi 2017-0 Yes Univer s ne 25 mcg 8-08 ity of tablet 00:00: [place] [address] Medical Branch levothyroxi 2017-0 Yes Univer s ne 25 mcg 8-08 ity of tablet 00:00: [place] [facility] levothyroxi 2017-0 Yes Univer s ne 25 mcg 8-08 ity of tablet 00:00: [place] [address] Medical Branch levothyroxi 2017-0 Yes Univer s ne 25 mcg 8-08 ity of tablet 00:00: [place] [facility] levothyroxi 2017-0 Yes Univer s ne 25 mcg 8-08 ity of tablet 00:00: [place] [address] Medical Branch CARTIA XT 2017-0 Yes Univers 180 mg 24 8-02 ity of hr capsule 00:00: [place] [facility] CARTIA XT 2017-0 Yes Univers 180 mg 24 8-02 ity of hr capsule 00:00: [place] [facility] CARTIA XT 20170 Yes Univers 180 mg 24 8-02 ity of hr capsule 00:00: [place] [facility] CARTIA XT 2017-0 Yes Univers 180 mg 24 8-02 ity of hr capsule 00:00: [place] [address] Medical [place] CARTIA XT 2017-0 Yes Univers 180 mg 24 8- ity of hr capsule 00:00: [place] [facility] CARTIA XT 2017-0 Yes Univers 180 mg 24 8- ity of hr capsule 00:00: [place] [facility] CARTIA XT 2017-0 Yes Univers 180 mg 24 8- ity of hr capsule 00:00: [place] [facility] CARTIA XT 2017-0 Yes Univers 180 mg 24 8- ity of hr capsule 00:00: [place] [facility] CARTIA XT 2017-0 Yes Univers 180 mg 24 8- ity of hr capsule 00:00: [place] [facility] CARTIA XT 2017-0 Yes Univers 180 mg 24 8- ity of hr capsule 00:00: [place] [facility] CARTIA XT 2017-0 Yes Univers 180 mg 24 8- ity of hr capsule 00:00: [place] [facility] CARTIA XT 2016-0 Yes Univers 180 mg 24 8- ity of hr capsule 00:00: [place] [facility] losartan-hy 2017-0 Yes Univer s [...] 2020-03-07 14:53:00 130 mm[Hg] Univer sity of [facility] Diastolic blood 2020-03-07 14:53:00 77 mm[Hg] [facility] Heart rate 2020-03-07 14:53:00 91 /min Universi ty of [facility] Body height 2020-03-07 14:50:00 162.6 cm Universi ty of [facility] Body weight 2020-03-07 14:50:00 88.905 kg Universi ty of [facility] Branch BMI 2020-03-07 14:50:00 33.64 kg/m2 Universi ty of [facility] Systolic blood 2020-03-07 14:53:00 130 mm[Hg] Univer sity of [facility] Branch Diastolic blood 2020-03-07 14:53:00 77 mm[Hg] Unive rsity of [facility] Branch Heart rate 2020-03-07 14:53:00 91 /min Universi ty of [facility] Branch Body height 2020-03-07 14:50:00 162.6 cm Universi ty of [facility] Branch Body weight 2020-03-07 14:50:00 88.905 kg Universi ty of [facility] BMI 2020-03-07 14:50:00 33.64 kg/m2 Universi ty of [facility] Systolic blood 2020-01-22 19:52:00 134 mm[Hg] Univer sity of [facility] Branch Diastolic blood 2020-01-22 19:52:00 76 mm[Hg] [facility] Heart rate 2020-01-22 19:52:00 73 /min [facility] Body height 2020-01-22 19:52:00 160 cm [facility] Body weight 2020-01-22 19:52:00 84.823 kg [facility] BMI 2020-01-22 19:52:00 33.13 kg/m2 [facility] Procedures Procedure Date / Time Performed Performing Clinician Nhan REYESU PRE-OP 2020-03-07 06:01:00 Doctor Unassigned, No [facility] [place] [facility] MR KNEE LEFT WO 2020-02-14 14:51:14 Precious Stanley [facility] REFERRAL- 2020-02-07 06:01:00 Doctor Unassigned, No [facility] REQUEST/RESPONSE [facility] XR KNEE 3 VW LEFT 2020-01-22 19:25:04 Precious Stanley [facility] ASSIGNMENT OF BENEFITS 2020-01-22 19:11:24 Doctor Unassigned, No [facility] Encounters Start End Encounter Admission Attending Care Care Encounter Source Date/Time Date/Time Type Type Clinicians Facility Department ID 2021-02-13 2021-02-13 Outpatient KEJACKIE_Rody [facility] [id number] Blanket 04:05:00 04:05:00 118 [facility] 2021-02-13 2021-02-13 Outpatient Valeria Escobar [facility] [id number] 00:00:00 00:00:00 Aiyana [id number] 2021-01-23 2021-01-23 Outpatient KEFFER_Rody [facility] [id number] Blanket 01:03:00 01:03:00 028 [facility] 2021-01-23 2021-01-23 Outpatient Valeria Escobar [facility] [id number] 00:00:00 00:00:00 Aiyana [id number] 2021-01-03 Outpatient KEFFER_Rody [facility] [id number] Blanket 05:21:00 05:21:00 008 [facility] 2020-12-23 2020-12-23 Outpatient DELANEY_Rody [facility] [id number] Blanket 10:39:00 10:39:00 927 [facility] 2020-12-23 2020-12-23 Outpatient Valeria Escobar [facility] [id number] 00:00:00 00:00:00 Aiyana [id number] 2020-11-25 2020-11-25 Outpatient DELANEY_A [facility] [id number] Blanket 12:35:00 12:35:00 830 [facility] 2020-10-24 2020-10-24 Outpatient DELANEY_Rody [facility] [id number] Blanket 04:21:00 04:21:00 729 [facility] 2020-10-24 2020-10-24 Outpatient Tez [facility] [id number] 00:00:00 00:00:00 [place] [id number] Higuera [id number] 2020-10-21 2020-10-21 Outpatient DELANEY_Rody [facility] [id number] Blanket 03:59:00 03:59:00 726 [facility] 2020-10-08 2020-10-08 Outpatient Tez [facility] [id number] 00:00:00 00:00:00 [place] [id number] Higuera [id number] 2020-09-17 2020-09-17 Outpatient DELANEY_A [facility] [id number] Blanket 04:37:00 04:37:00 622 [facility] 2020-09-12 2020-09-12 Outpatient KEFFER_A [facility] [id number] Blanket 09:22:00 09:22:00 617 [facility] 2020-09-12 2020-09-12 Outpatient Tez [facility] [id number] 00:00:00 00:00:00 [place] [id number] Higuera [id number] 2020-08-29 2020-08-29 Outpatient KEJACKIE_A [facility] [id number] Blanket 04:14:00 04:14:00 603 [facility] 2020-08-29 2020-08-29 Outpatient Valeria Escobar [facility] [id number] 00:00:00 00:00:00 Aiyana [id number] 2020-07-09 2020-07-09 Outpatient KEJACKIE_A [facility] [id number] Blanket 02:49:00 02:49:00 413 [facility] 2020-07-09 2020-07-09 Outpatient Valeria Escobar [facility] [id number] 00:00:00 00:00:00 Aiyana [id number] 2020-06-19 2020-06-19 Outpatient KEJACKIE_A [facility] [id number] Blanket 11:09:00 11:09:00 324 [facility] 2020-06-19 2020-06-19 Outpatient Valeria Escobar [facility] [id number] 00:00:00 00:00:00 Aiyana [id number] 2020-03-08 2020-03-08 [facility] [id number] Univers 00:00:00 00:00:00 Precious [employer] [id number] it y of Surgical 4.2.7.2.686 [place] as Specialti [id number] [facility] 198 [facility] 2020-03-07 2020-03-07 Office [facility] [id number] 08:46:43 09:23:25 Visit Precious [employer] [id number] Surgical 4.2.7.2.686 Specialti [id number] es 198 [place] 2020-03-07 2020-03-07 Office [facility] [id number] Univers 08:46:43 09:23:25 Visit Precious Hernandez [facility] [id number] it y of Surgical 4.2.7.2.686 [place] as Specialti [id number] Nh dical es 198 [facility] 2020-03-07 2020-03-07 [facility] [id number] Univers 08:45:00 08:45:00 PRECIOUS ity of [facility] 2020-03-07 2020-03-07 [facility] [id number] Univers 08:45:00 08:45:00 PRECIOUS ity of [facility] 2020-03-07 2020-03-07 Orders Doctor WADE [id number] 00:00:00 00:00:00 Only Unassigned, CECILIA [id number] [place] [facility] 4.2.7.2.686 [id number] 2020-03-07 2020-03-07 Orders Doctor SHERI [id number] Univers 00:00:00 00:00:00 Only Unassigned, CECILIA 350.1.13.10 ity of [place] [facility] 4.2.7.2.686 Thomas as [id number] [facility] 009 [place] 2020-02-14 2020-02-14 [facility] [id number] Univers 07:36:30 23:59:00 Encounter Precious Mary Ortiz 350.1.13.10 ity of [place] [facility].7.2.686 [facility] [id number] [facility] 804 [place] 2020-02-14 2020-02-14 Outpatient delaney_rody [facility] [id number] [place] 02:28:00 02:28:00 1118 Medical [facility] 2020-02-14 2020-02-14 [facility] [id number] Univers 00:00:00 00:00:00 PRECIOUS [id number] ity of [facility] 2020-02-14 2020-02-14 [facility] [id number] Univers 00:00:00 00:00:00 PRECIOUS ity of [facility] 2020-02-07 2020-02-07 Orders Doctor SHERI [id number] Univers 00:00:00 00:00:00 Only Unassigned, CECILIA 350.1.13.10 ity of [place] [facility] 4.2.7.2.686 Thomas as [id number] [facility] 009 [place] 2020-02-06 2020-02-06 [facility]phone [facility] [id number] Univers 00:00:00 00:00:00 Precious [facility] 350.1.13.10 it y of Surgical 4.2.7.2.686 [place] as Specialti [id number] Nh dical es 198 [facility] 2020-01-22 2020-01-22 Hospital [facility] 1.2.840.114 [id number] Univers 14:11:43 23:59:00 Encounter Precious Ortiz 350.1.13.10 ity [place]7.2.686 [place] [id number] [facility] 807 [place] 2020-01-22 2020-01-22 Office [facility] [id number] Univers 14:42:46 15:06:37 Visit Precious Hernandez [facility] 350.1.13.10 it y of Surgical 4.2.7.2.686 [place] as Specialti [id number] Nh dical es 198 [facility] 2020-01-22 2020-01-22 Outpatient [facility] [id number] Univers 15:00:00 15:00:00 PRECIOUS [id number] ity of [facility] 2020-01-22 2020-01-22 Outpatient [facility] [id number] Univers 15:00:00 15:00:00 PRECIOUS ity of [facility] 2020-01-22 2020-01-22 Orders Doctor WADE [id number] [id number] Univers 00:00:00 00:00:00 Only Unassigned, CECILIA 350.1.13.10 ity of [place] [facility] 4.2.7.2.686 Thomas as [id number] [facility] 009 Branch 2020-01-22 2020-01-22 Telephone JERRY Stanley 1.2.840.114 [id number] [facility] 00:00:00 00:00:00 Precious [employer] 350.1.13.10 it y of Surgical 4.2.7.2.686 [place] as Specialti [phone] Nh dical es 198 Branch [place] Results Test Description Test Time Test Results Result Source Comments Comments MR KNEE LEFT WO 2020-01-28 HISTORY: Persistent University of CONTRAST 8 chronic pain in the [facility] 14:58:54 left knee. TECHNIQUE: [facility] MR imaging of the left knee [...] extending into posterior horn. XR KNEE 3 2019-12-29 1. ?No fracture. RL: U niversity of LEFT 6 1105 Electronically [facility] 19:41:38 signed by Ruby Andrade MD [...]
[2021-03-05 18:11] LABS: Absolute Lymphocytes (CBC) 3.4 K/uL (0.7-4.9); Basophils % 0.4 % (0-1.3); Hematocrit 34.7 % (36.0-45.0); Lymphocytes % 32.2 % (15.3-44.8); MPV 7.5 fL (7.6-11.3); RBC Red Blood Cell Count 4.61 M/uL (3.86-4.86)
[2021-03-05 18:12] LABS: Protime INR 1.05
[2021-03-05] MEDS ORDERED: ONDANSETRON 4 MG/2 ML VIAL ONE (18:14)
[2021-03-05] MEDS ORDERED: MORPHINE 4 MG/ML SYR ONE (18:14)
[2021-03-05 18:36] LABS: ALT/SGPT 20 U/L (12-78); AST/SGOT 16 U/L (15-37); Albumin 3.2 g/dL (3.4-5.0); Alkaline Phosphatase 97 U/L (45-117); BUN Blood Urea Nitrogen 12 mg/dL (7-18); Bicarbonate 29 mmol/L (21-32); Bilirubin Direct < 0.1 mg/dL (0-0.2); Bilirubin Total 0.4 mg/dL (0.2-1.0); Glucose Level 128 mg/dL (74-106); Magnesium 1.8 mg/dL (1.8-2.4); NT PRO-BNP 174 pg/mL (<450); Protein, Total 8.4 g/dL (6.4-8.2); Sodium Level 141 mmol/L (136-145); Troponin (Emerg Dept Use Only) < 0.02 ng/mL (0.0-0.045)
--- NOTE | 2021-03-05 18:44 | RAD REPORT ---
EXAM DESCRIPTION: RAD - Chest Single View - 03/05/2021 6:36 pm CLINICAL HISTORY: CHEST PAIN COMPARISON: Chest Single View dated 06/21/2020 FINDINGS: Lines: None. Lungs: No evidence of edema or pneumonia. Pleural: No significant pleural effusions or pneumothorax. Cardiac: The heart size is within normal limits. Bones: No acute fractures. Other: IMPRESSION: No acute cardiopulmonary disease.
--- NOTE | 2021-03-05 20:37 | RAD REPORT ---
EXAM DESCRIPTION: CTAbdomen Pelvis W Contrast - 03/05/2021 8:26 pm CLINICAL HISTORY: ABD PAIN COMPARISON: Abdomen Pelvis W Contrast dated 02/24/2021; Abdomen Pelvis W Contrast dated ; Abdomen Pelvis W Contrast dated 06/21/2020; Abdomen Pelvis W Contrast dated 10/26/2015; Chest Si ngle View dated 03/05/2021 TECHNIQUE: CT of the abdomen and pelvis was performed. All CT scans are performed using dose optimization technique as appropriate and may include automated exposure control or mA/KV adjustment according to patient size. FINDINGS: Lower chest: Small right pleural effusion. There is subjacent atelectasis. Minimal left ba silar atelectasis. Liver: Perihepatic implants are again identified and not significantly changed. Biliary: No biliary ductal dilatation. Cholecystectomy. Stomach: No significant focal abnormality. Duodenum: No significant focal abnormality. Pancreas: No significant abnormality. Spleen: No significant abnormality. Adrenal: No suspicious lesions. Kidney/ureter: No hydronephrosis. No renal calculi. Too small to characterize and/or benign appearing renal lesions are noted. Retroperitoneum: No retroperitoneal adenopathy. Vascular: No aneurysm. Bowel: No significant focal abnormality. Normal appendix. Peritoneum: Inflammatory process/ implant in the omentum measuring 12 millimeters is similar to prior . Bladder: Grossly unremarkable. Reproductive: No adnexal masses. Bones: No acute fracture. Multilevel degenerative changes are present in the spine. Other: n/a IMPRESSION: 1. Interval development of a small right pleural effusion and subjacent atelectasis. 2. Perihepatic and omental implants are unchanged from prior. Biopsy result of a perihepatic implant is pending.
[2021-03-05] MEDS ORDERED: POTASSIUM 25 MEQ EFFERV TAB ONE ×2 (20:44→22:08)
--- NOTE | 2021-03-05 21:36 | ER ---
Nurse's Notes [facility] Name: Chanel Martinez Age: 75 yrs Sex: Female : 1945 Arrival Date: 03/05/2021 Time: 17:32 Bed 2 Private MD: Valeria Escobar Diagnosis: Pleural effusion in other conditions classified elsewhere;Pleurisy Presentation: 03/05 17:41 Chief complaint: Patient states: RLQ pain radiating up into her right chest and iw shoulder, had a biopsy yesterday of a spot in her chest, was seen here last week for similar symptoms ,pain got worse today. Coronavirus screen: At this time, the client does not indicate any symptoms associated with coronavirus-19. Ebola Screen: Patient negative for fever greater than or equal to 101.5 degrees Fahrenheit, and additional compatible Ebola Virus Disease symptoms Patient denies exposure to infectious person. Patient denies travel to an Ebola-affected area in the 21 days before illness onset. No symptoms or risks identified at this time. Initial Sepsis Screen: Does the patient meet any 2 criteria? No. Patient's initial sepsis screen is negative. Does the patient have a suspected source of infection? No. Patient's initial sepsis screen is negative. Risk Assessment: Do you want to hurt yourself or someone else? Patient reports no desire to harm self or others. Onset of symptoms was March 05, 2021. 17:41 Method Of Arrival: Wheelchair iw 17:41 Acuity: RYAN 3 iw Historical: - Allergies: 17:39 Augmentin; tw2 17:39 PENICILLINS; tw2 - Home Meds: 17:39 diltiazem HCl 120 mg Oral CDER 1 cap once daily [Active]; levothyroxine 50 mcg tab 1 tw2 tab once daily [Active]; levothyroxine oral [Active]; losartan-hydrochlorothiazide 100-25 mg Oral tab 1 tab once daily [Active]; pantoprazole Oral [Active]; preser vision [Active]; tumeric [Active]; Vitamin D3 Oral [Active]; - PMHx: 17:39 Hypertension; Hypothyroidism; Tachycardia; GERD; tw2 - Immunization history:: Adult Immunizations. - Social history:: Smoking status: . Screenin:39 Abuse screen: Denies threats or abuse. Nutritional screening: No deficits noted. tw2 Tuberculosis screening: No symptoms or risk factors identified. Fall Risk Secondary diagnosis (15 points) impaired mobility. Assessment: 17:48 Pain: tw2 17:49 General: Appears in no apparent distress. obese, well groomed, Behavior is calm, tw2 cooperative, appropriate for age. Pain: Pain began 1 day ago. Pain: Complains of pain in right lower quadrant Pain radiates to right breast. Neuro: Level of Consciousness is awake, alert, obeys commands, Oriented to person, place, time, situation. Cardiovascular: Patient's skin is warm and dry. Respiratory: Airway is patent Respiratory effort is even, unlabored, Respiratory pattern is regular, symmetrical. Musculoskeletal: Range of motion: intact in all extremities. 18:24 Reassessment: No changes from previously documented assessment. Patient and/or family tw2 updated on plan of care and expected duration. Pain level reassessed. Patient is alert, oriented x 3, equal unlabored respirations, skin warm/dry/pink. 19:28 Pain: Complains of pain in " sometimes it is in the side of my stomach, sometimes it is tw5 in my right shoulder, and sometimes it is in my back. It moves,and it is driving me crazy." She states the pain has subsided slightly Pain currently is 3 out of 10 on a pain scale. at worst was 10 out of 10 on a pain scale. 22:34 Reassessment: Patient is alert, oriented x 3, equal unlabored respirations, skin bb warm/dry/pink. pt verbalized understanding of and agrees to plan of care discharge instructions given pt ambulated with steady gait to exit accompanied by family. Vital Signs: 17:47 BP 154 / 85; Pulse 97; Resp 17; Pulse Ox 95% on R/A; tw2 17:48 Weight 81.19 kg (R); Height 5 ft. 3 in. (160.02 cm); tw2 18:25 Pain 10/10; tw2 18:25 BP 138 / 73; Pulse 93; Resp 19; Temp 97.9(TE); Pulse Ox 98% on R/A; tw2 19:28 BP 135 / 66; Pulse 87; Resp 22; Pulse Ox 98% on R/A; Pain 3/10; tw5 20:43 BP 132 / 71; Pulse 90; Resp 21; Pulse Ox 97% ; tt3 21:27 BP 133 / 67; Pulse 89; Resp 23; Pulse Ox 98% ; tt3 21:49 BP 139 / 76; Pulse 89; Resp 21; Pulse Ox 97% ; tt3 22:23 BP 132 / 78; Pulse 94; Resp 24; Pulse Ox 98% ; tt3 17:48 Body Mass Index 31.71 (81.19 kg, 160.02 cm) tw2 ED Course: 17:32 Patient arrived in ED. mr 17:34 Valeria Escobar MD is Private Physician. mr 17:39 Arm band placed on. tw2 17:41 Bed in low position. Call light in reach. hand rounder on. Pulse ox on. NIBP on. tw2 Warm blanket given. 17:42 Triage completed. iw 17:47 Phyllis Osullivan RN is Primary Nurse. tw2 17:48 Patient maintains SpO2 saturation greater than 95% on room air. tw2 17:50 Initial lab(s) drawn, by me, sent to lab. EKG done, by ED staff. Inserted saline lock: kj1 22 gauge in right antecubital area, using aseptic technique. Blood collected. 17:57 Rigoberto Beaulieu PA is PHCP. cp 17:57 Srikanth Caba MD is Attending Physician. cp 18:09 Lipase Sent. kj1 18:36 XRAY Chest (1 view) In Process Unspecified. EDMS 19:06 Scott Garza MD is Attending Physician. cp 19:09 Report given to BIA Jacob. tw2 19:59 Primary Nurse role handed off by Phyllis Osullivan RN cs9 20:25 Nidia Edwards is Primary Nurse. tw5 20:26 CT Abd/Pelvis - IV Contrast Only In Process Unspecified. EDMS 22:35 No provider procedures requiring assistance completed. IV discontinued, intact, bb bleeding controlled, No redness/swelling at site. Pressure dressing applied. Administered Medications: 18:21 Drug: Zofran (Ondansetron) 4 mg Route: IVP; Site: right antecubital; tw2 18:49 Follow up: Response: No adverse reaction tw2 18:23 Drug: morphine 4 mg {Note: RASS 0.} Route: IVP; Site: right antecubital; tw2 18:49 Follow up: Response: No adverse reaction; Pain is decreased; RASS: Alert and Calm (0) tw2 20:47 Drug: Potassium Effervescent Tablet 50 mEq Route: PO; tw5 22:36 Follow up: Response: No adverse reaction bb 22:17 Drug: Ketorolac 15 mg Route: IVP; Site: right antecubital; bb 22:37 Follow up: Response: No adverse reaction bb 22:18 Drug: Potassium Effervescent Tablet 50 mEq Route: PO; bb 22:37 Follow up: Response: No adverse reaction bb Outcome: 21:36 Discharge ordered by MD. cp 22:36 Discharged to home ambulatory, with family. bb 22:36 Condition: stable 22:36 Discharge instructions given to patient, Instructed on discharge instructions, follow up and referral plans. medication usage, Demonstrated understanding of instructions, follow-up care, medications, Prescriptions given X 2. 22:37 Patient left the ED. bb Signatures: Dispatcher [employer] ED JuárezClaudette fine LouannChanel, RN Ivanna Hogan RN BIA iw Rigoberto Beaulieu PA PA cp Wise, Tara, RN RN tw2 Rosa Temple kj1 Gumaro Stephens tt3 Nidia Edwards tw5 Tory Newman 9
--- NOTE | 2021-03-05 21:36 | EDPHYS ---
Physician Documentation [facility] Name: Chanel Martinez Age: 75 yrs Sex: Female : 1945 Arrival Date: 03/05/2021 Time: 17:32 Bed 2 Private MD: Valeria Escobar ED Physician Scott Garza HPI: 03/05 17:55 This 75 yrs old Female presents to ER via Wheelchair with complaints of Chest Pain, cp Abdominal Pain. 17:55 The patient presents with abdominal pain in the epigastric area, in the right upper cp quadrant. 17:55 Onset: The symptoms/episode began/occurred today. The symptoms radiate to right back. cp Associated signs and symptoms: Pertinent positives: chest pain, nausea, Pertinent negatives: anorexia, constipation, dysuria, fever, vomiting. The symptoms are described as waxing/waning. Modifying factors: the symptoms are aggravated by movement. Severity of pain: in the emergency department the pain is unchanged despite home interventions. Patient reports having biopsy performed yesterday by DR Boyce for abdominal mass. Historical: - Allergies: 17:39 Augmentin; tw2 17:39 PENICILLINS; tw2 - Home Meds: 17:39 diltiazem HCl 120 mg Oral CDER 1 cap once daily [Active]; levothyroxine 50 mcg tab 1 tw2 tab once daily [Active]; levothyroxine oral [Active]; losartan-hydrochlorothiazide 100-25 mg Oral tab 1 tab once daily [Active]; pantoprazole Oral [Active]; preser vision [Active]; tumeric [Active]; Vitamin D3 Oral [Active]; - PMHx: 17:39 Hypertension; Hypothyroidism; Tachycardia; GERD; tw2 - Immunization history:: Adult Immunizations. - Social history:: Smoking status: . ROS: 18:00 Constitutional: Negative for body aches, chills, fever, poor PO intake. cp 18:00 Eyes: Negative for injury, pain, redness, and discharge. cp Exam: 17:47 ECG was reviewed by the Attending Physician. cp 18:05 Constitutional: The patient appears in no acute distress, alert, awake, cp non-diaphoretic, non-toxic, well developed, well nourished. 18:05 Head/Face: Normocephalic, atraumatic. cp 18:05 Eyes: Periorbital structures: appear normal, Conjunctiva: normal, no exudate, no injection, Sclera: no appreciated abnormality, Lids and lashes: appear normal, bilaterally. 18:05 ENT: External ear(s): are unremarkable, Nose: is normal, Posterior pharynx: Airway: no evidence of obstruction, patent. 18:05 Neck: ROM/movement: is normal, is supple, without pain, no range of motions limitations. 18:05 Chest/axilla: Inspection: normal, Palpation: crepitus, is not appreciated, tenderness, is not appreciated. 18:05 Cardiovascular: Rate: normal, Rhythm: regular, Edema: is not appreciated, JVD: is not appreciated. 18:05 Respiratory: the patient does not display signs of respiratory distress, Respirations: normal, no use of accessory muscles, no retractions, labored breathing, is not present, Breath sounds: are clear throughout, no decreased breath sounds, no stridor, no wheezing. 18:05 Abdomen/GI: Inspection: abdomen appears normal, Bowel sounds: active, all quadrants, Palpation: soft, in all quadrants, moderate abdominal tenderness, in the anterior aspect of right lateral abdomen and right upper quadrant. 18:05 Back: CVA tenderness, is absent. 18:05 Skin: cellulitis, is not appreciated, no rash present. 18:05 Neuro: Orientation: to person, place \T\ time. Mentation: is normal, Motor: moves all fours, strength is normal, Sensation: is normal. Vital Signs: 17:47 BP 154 / 85; Pulse 97; Resp 17; Pulse Ox 95% on R/A; tw2 17:48 Weight 81.19 kg (R); Height 5 ft. 3 in. (160.02 cm); tw2 18:25 Pain 10/10; tw2 18:25 BP 138 / 73; Pulse 93; Resp 19; Temp 97.9(TE); Pulse Ox 98% on R/A; tw2 19:28 BP 135 / 66; Pulse 87; Resp 22; Pulse Ox 98% on R/A; Pain 3/10; tw5 20:43 BP 132 / 71; Pulse 90; Resp 21; Pulse Ox 97% ; tt3 21:27 BP 133 / 67; Pulse 89; Resp 23; Pulse Ox 98% ; tt3 21:49 BP 139 / 76; Pulse 89; Resp 21; Pulse Ox 97% ; tt3 22:23 BP 132 / 78; Pulse 94; Resp 24; Pulse Ox 98% ; tt3 17:48 Body Mass Index 31.71 (81.19 kg, 160.02 cm) tw2 MDM: 18:00 Differential diagnosis: gastritis, gastroesophageal reflux disease, non-specific abd cp pain, pancreatitis, Peptic Ulcer Disease, Ureterolithiasis, urinary tract infection, choledocholithiasis. 18:06 Patient medically screened. cp 21:35 Data reviewed: vital signs, nurses notes, lab test result(s), EKG, radiologic studies, cp CT scan, plain films. 21:35 Test interpretation: by ED physician or midlevel provider: ECG, plain radiologic cp studies. Counseling: I had a detailed discussion with the patient and/or guardian regarding: the historical points, exam findings, and any diagnostic results supporting the discharge/admit diagnosis, lab results, radiology results, the need for outpatient follow up, a family practitioner, to return to the emergency department if symptoms worsen or persist or if there are any questions or concerns that arise at home. Response to treatment: the patient's symptoms have markedly improved after treatment, VSS. Pain markedly improved and no signs of respiratory distress. Will discharge to home for continued monitoring. 03/05 17:52 Order name: Basic Metabolic Panel; Complete Time: 18:55 iw 03/05 20:40 Interpretation: Normal except: K 3.0; GLUC 128; GFR 70. cp 03/05 17:52 Order name: CBC with Diff; Complete Time: 18:55 iw 03/05 21:34 Interpretation: Normal except: HGB 11.3; HCT 34.7; MCV 75.3; MCH 24.6; RDW 15.3; MPV cp 7.5. 03/05 17:52 Order name: LFT's; Complete Time: 18:55 iw 03/05 21:35 Interpretation: Normal except: TP 8.4; ALB 3.2; GLOB 5.2; A/G 0.6. cp 03/05 17:52 Order name: Magnesium; Complete Time: 18:55 iw 03/05 17:52 Order name: NT PRO-BNP; Complete Time: 18:55 iw 03/05 17:52 Order name: PT-INR; Complete Time: 18:55 iw 03/05 17:52 Order name: Troponin (emerg Dept Use Only); Complete Time: 18:55 iw 03/05 17:52 Order name: XRAY Chest (1 view); Complete Time: 18:55 iw 03/05 18:07 Order name: Lipase cp 03/05 18:07 Order name: Lipase; Complete Time: 18:55 EDMS 03/05 19:18 Order name: CT Abd/Pelvis - IV Contrast Only; Complete Time: 20:39 cp 03/05 17:52 Order name: EKG; Complete Time: 17:52 iw 03/05 17:52 Order name: Cardiac monitoring; Complete Time: 17:52 iw 03/05 17:52 Order name: EKG - Nurse/Tech; Complete Time: 17:52 iw 03/05 17:52 Order name: IV Saline Lock; Complete Time: 17:52 iw 03/05 17:52 Order name: Labs collected and sent; Complete Time: 17:52 iw 03/05 17:52 Order name: O2 Per Protocol; Complete Time: 18:24 iw 03/05 17:52 Order name: O2 Sat Monitoring; Complete Time: 18:24 iw EC:47 Rate is 109 beats/min. Rhythm is regular. MS interval is normal. QRS interval is cp prolonged at 106 msec. QT interval is normal. T waves are Inverted in lead aVR. Interpreted by me. Reviewed by me. Administered Medications: 18:21 Drug: Zofran (Ondansetron) 4 mg Route: IVP; Site: right antecubital; tw2 18:49 Follow up: Response: No adverse reaction tw2 18:23 Drug: morphine 4 mg {Note: RASS 0.} Route: IVP; Site: right antecubital; tw2 18:49 Follow up: Response: No adverse reaction; Pain is decreased; RASS: Alert and Calm (0) tw2 20:47 Drug: Potassium Effervescent Tablet 50 mEq Route: PO; tw5 22:36 Follow up: Response: No adverse reaction bb 22:17 Drug: Ketorolac 15 mg Route: IVP; Site: right antecubital; bb 22:37 Follow up: Response: No adverse reaction bb 22:18 Drug: Potassium Effervescent Tablet 50 mEq Route: PO; bb 22:37 Follow up: Response: No adverse reaction bb Disposition: 22:47 Co-signature as Attending Physician, Scott Garza MD. rn Disposition Summary: 03/05/21 21:36 Discharge Ordered Location: Home cp Problem: new cp Symptoms: have improved cp Condition: Stable cp Diagnosis - Pleural effusion in other conditions classified elsewhere cp - Pleurisy cp Followup: cp - With: Private Physician - When: 1 - 2 days - Reason: Recheck today's complaints Discharge Instructions: - Discharge Summary Sheet cp - Pleural Effusion cp - Pleurisy cp Forms: - Medication Reconciliation Form cp - Thank You Letter cp - Antibiotic Education cp - Prescription Opioid Use cp Prescriptions: - Ibuprofen 800 mg Oral Tablet - take 1 tablet by ORAL route every 8 hours As needed take with food; 30 tablet; cp Refills: 0, Product Selection Permitted - Ultram 50 mg Oral Tablet - take 1 tablet by ORAL route every 6 hours As needed; 12 tablet; Refills: 0, cp Product Selection Permitted Signatures: Dispatcher [employer] Chanel Arnold RN RN bb Williams, Irene, RN RN iw Nieto, Roman, MD MD rn Page, Corey, PA PA cp Phyllis Osullivan RN RN tw2 Nidia Edwards tw5
[2021-03-05] MEDS ORDERED: KETOROLAC 30 MG/ML INJ ONE (22:08)
[2021-03-05 22:44] VITALS: TEMP 97.9
[2021-03-05 22:50] VITALS: BP 132/78; O2SAT 98
== END 2021-03-05 22:37 | disposition home or self-care (01) ==
LOC: ER 17:31
DX: J90 Pleural effusion, not elsewhere classified (principal); I10 Essential (primary) hypertension; E03.9 Hypothyroidism, unspecified; Z88.0 Allergy status to penicillin; Z88.1 Allergy status to other antibiotic agents
CPT/HCPCS: 93005; 85025; 80048; 36415; 83735; 85610; 80076; 84484; 83690; 83880; 74177; 71045; 96375; 96374; 99285; Q9967; J2405

== ENCOUNTER 2022-04-14 16:32 | Emergency (ER) | payer OTHER ==
--- OUTSIDE RECORDS SUMMARY | 2022-04-14 16:46 | XMS REPORT | Continuity of Care Document ---
:1945 Author Organization [facility] t Address [address] [place] [address] Care Team Providers Name Role Phone Valeria Escobar MD Primary Care Physician CECIL DELACRUZ Attending Clinician Unavailable ZAIRA Attending Clinician Unavailable Jessica Mock MD Attending Clinician DAQUAN MEZA Attending Clinician Unavailable Higinio Palomino MD Attending Clinician Merly Thompson MD Attending Clinician Karina LEONARD, Maurice Corbin Attending Clinician Kiya Crane MD Attending Clinician KIYA CRANE Attending Clinician Unavailable HIGINIO PALOMINO Attending Clinician Unavailable Laron Negrete MD Attending Clinician Ben Duncan Attending Clinician Unavailable Sloan Gomes MD Attending Clinician [phone] Jr. Dimitry Egan RN Attending Clinician Unavailable Darrell AMEZQUITA, Mikki Attending Clinician Unavailable Ligia Huizar MD Attending Clinician Torres Nick MARTIN Attending Clinician TORRESNICK Attending Clinician Unavailable Anthony LEONARD, Kahlil Attending Clinician Nasima LEONARD, Cecil Perdomo Attending Clinician [phone] Promise AMEZQUITA, Destinee Attending Clinician Unavailable Eli Flores Attending Clinician Jennifer Quezada MA Attending Clinician Unavailable Lelia Scott MA Attending Clinician Unavailable Hernandez LEONARD, Curtis Hicks Attending Clinician Henrry LEONARD, Jessy Cuenca Attending Clinician [phone] Akosua Young Attending Clinician Valeria Escobar Attending Clinician [phone] Matilda Boyce Attending Clinician Unavailable Jeevan AMEZQUITA, Lisa Attending Clinician Unavailable Roldan LEONARD, Jayda Alexis Attending Clinician Jan AMEZQUITA, Surinder Attending Clinician Unavailable Leny Attending Clinician Unavailable Jayda Louis MA Attending Clinician Unavailable ARGELIA FERNANDEZ Attending Clinician Unavailable Elsie Burgos MA Attending Clinician Unavailable Warren Reagan Attending Clinician [phone] Precious Fox MD Attending Clinician PRECIOUS FOX Attending Clinician Unavailable Doctor Unassigned, Odum Attending Clinician Unavailable macy_rommel Attending Clinician Unavailable CECIL DELACRUZ Admitting Clinician Unavailable MACY_Rommel Admitting Clinician Unavailable MERLY THOMPSON Admitting Clinician Unavailable LIGIA HUIZAR Admitting Clinician Unavailable CURTIS PABON Admitting Clinician Unavailable Leny Admitting Clinician Unavailable macy_rommel Admitting Clinician Unavailable Payers Payer Name Policy Type Policy Number Effective Date Expiration Date S epi HUMANA MEDICARE ADV [id number] 2020 00:00:00 HUMANA (MEDICARE [id number] REPLACEMENT/ADVANTA GE - PPO) [facility] [place] [id number] [place] 00:00:00 GENERIC PPO - [id number] GENERIC PAYOR MEDICARE PART B - [id number] 2010 2013 MEDICARE 00:00:00 00:00:00 CHOICE FUND OPEN [id number] 2009 2010 ACCESS PLUS - CIGNA 00:00:00 00:00:00 AAR MEDICARE [id number] 2016 2020 COMPLETE 00:00:00 00:00:00 [facility] - [id number] MEDICARE SOLUTIONS - MEDICARE COMPLETE (MEDICARE REPLACEMENT PPO) Problems Condition Condition Condition Status Onset Resolution Last Treating Co mments Source Name Details Category Date Date Treatment Clinician Date Altered Altered Problem Active [place] [facility] 1-04 Communi status Status 00:00: ty 00 Hospita Clinics Empyema Empyema Disease Active 2021-03 [facility] 2-29 College 00:00: of 00 Medicin e Essential Essential Disease Active 2021-03 [facility] hypertensi hypertensi Co llege on on 00:00: of 00 Medicin e Hypothyroi Hypothyroi Disease Active 2021-03 [facility] dism dism [facility] 00:00: of 00 Medicin e Acute Acute Problem Active 2021-03 [place] urinary Urinary 109 Communi tract Tract 00:00: ty infection Infection 00 Hosp abhinav l Clinics Colon Colon Disease Active Overview: Method i cancer cancer [address] screening screening 00:00: g of this H ospita 00 note l might be different from the original. 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 Anemia Anemia Problem Active [place] 3-08 Communi 00:00: ty [facility] Disorder Disorder Problem [place] thyroid of Thyroid 3-07 da gland G[facility] Hyperchole Hyperchole Problem Active M at[place]or sterolemia sterolemia 3-07 da 00:00: [facility] Hypertensi Hypertensi Problem Active M [place] ve ve 3-07 da disorder Disorder 00:00: [facility] Gastro-ome Gastro-ome Problem Active S mariey ntal ntal 1-12 Communi lymphadeno Lymphadeno 00:00: ty margarito margarito 00 [facility] Right Right Problem Active [place] upper Upper 1-12 Communi quadrant Quadrant 00:00: ty pain Pain 00 [facility] Malaise Malaise Problem Active 2020-03 [place] 2-21 Communi 00:00: ty 00 [facility] Abdominal Abdominal Problem Active 2020-03 [place] mass Mass 1-18 Communi 00:00: ty 00 [facility] Internal Internal Problem Active [place] hemorrhoid Hemorrhoid 7-01 Co mmuni s s 00:00: ty 00 [facility] Hematochez Hematochez Problem Active S [place] ia ia 6-03 Communi 00:00: ty 00 [facility] Long-term Long-term Problem Active [place] drug Drug 3-24 Communi therapy Therapy 00:00: ty 00 [facility] Vitamin D Vitamin D Problem Active [place] deficiency Deficiency 3-24 Co mmuni 00:00: ty 00 [facility] Hyperlipid Hyperlipid Problem Active S [place] emia emia 3-24 Communi 00:00: ty [facility] Shoulder Shoulder Problem Active [place] joint pain Joint Pain 3-24 Co mmuni 00:00: ty 00 Hospita l Clinics Headache Headache Problem Active [place] 3-24 Communi 00:00: ty 00 [facility] Dizziness Dizziness Problem Active [place] 4-16 Communi 00:00: ty 00 [facility] Adult Adult Problem Active [place] [employer] [facility] 9-20 Communi examinatio Examinatio 00:00: ty n n 00 [facility] Screening Screening Problem Active [place] for for 12-16 Communi malignant Malignant 00:00: ty neoplasm Neoplasm 00 Hospit [facility] of breast of Breast l Clinics Screening Screening Problem Active [place] for for 12-16 Communi malignant Malignant 00:00: ty neoplasm Neoplasm 00 Hospit a of cervix of Cervix l Clinics Hypothyroi Hypothyroi Problem Active S weeny dism dism 5-10 Communi 00:00: ty 00 [facility] Essential Essential Problem Active [place] hypertensi Hypertensi 5-10 Co mmuni on on 00:00: ty 00 [facility] Indigestio Indigestio Problem Active S weeny n n 5-10 Communi 00:00: ty 00 [facility] Diverticul Diverticul Problem Active S [place] itis itis 5-10 Communi 00:00: ty 00 [facility] Physiologi Physiologi Disease Active 2013-03 [facility] cupping c cupping 1-25 Kim ege of optic of optic 00:00: of disc of disc of 00 Medicin right eye right eye e 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 8-26 Co llege eyes eyes 00:00: of 00 Medicin e 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 Colleg e by by 00:00: of transplant transplant 00 Me dicin e Recurrent Recurrent Disease Active [facility] em[facility]ema em[facility]p R Medical VATS>>thor VATS>>thor Ce nter acotomy acotomy washout, washout, diagnostic diagnostic laparoscop laparoscop y 03/05/22 y 03/05/22 Pleural Pleural Disease Resolve 2021-032022-03-07 2022-03-[address] effusion, effusion, d 2-04 00:00:00 19:47:29 [facility] right right 00:00: Medical 00 Center Pleural Pleural Disease Resolve 2021-032022-03-07 2022-03-[address] effusion effusion d 0-21 00:00:00 19:47:32 [facility]ella kes 00:00: Medical 00 Center Allergies, Adverse Reactions, Alerts Allergy Allergy Status Severity Reaction(s) Onset Inactive Treating Comm ents Source Name Type Date Date Clinician AMOXICIL Allergy Active 2021-[address] [facility] CHRISTEL-POT 0-20 [facility] CLAVULAN 00:00: Medical ATE 00 Center PENICILL Allergy Active 2021-[address] IN 0-20 [facility] 00:00: Medical 00 Center Amoxicil Propensi Active Hives Method i christel-Pot ty to 6-15 st Clavulan adverse 00:00: Hospita ate reaction 00 l s to drug Amoxicil Propensi [facility] christel-Pot ty to 6-15 College Clavulan adverse 00:00: of ate reaction 00 Medicin s to e drug PENICILL Drug Active Anaphylaxis Uni vers INS Class 11-04 ity of 00:00: [place] 00 [facility] Branch Penicill Propensi Active Anaphylaxis U nivers ins ty to 11-04 ity of adverse 00:00: [place] reaction 00 Medical s Branch Penicill Propensi Active Anaphylaxis M ethodi ins ty to 8 adverse 00:00: Hospita reaction 00 l s to drug Penicill Propensi Active [facility] ins ty to 8[address] [place] adverse 00:00: of reaction 00 Medicin s to e drug NO KNOWN Allergy Active [facility] Augmenti Allergy Active [place] [facility] PENICILL Allergy Active [place] to [facility]anc [facility] Family History Family Member Diagnosis Comments Start Date Stop Date Source Natural father [facility] Natural mother Diabetes [facility] Natural mother Hypertension [facility] Natural sister Diabetes [facility] Natural son Crohn's disease [facility] Social History Social Habit Start Date Stop Date Quantity Comments Source History SDOH [facility] Alcohol Std Drinks Medica l Center History SDOH [facility] Alcohol Binge Medical Vivienne ter History SDOH [facility] Alcohol Comment Medical C enter History SDOH [facility] Transport Non-Med Medical Center Exposure to 2022-02-20 2022-03-[address] [facility] SARS-CoV-2 (event) 00:00:00 03:12:00 Medica l Center History [facility] 2022-03-02 2022-03-[address] [facility] Transport Med 00:00:00 00:00:[address] History [facility] 2022-03-02 2022-03-[address] [facility] Housing Unable to 00:00:00 00:00:00 Medical Center Pay History [facility] 2022-03-02 2022-03-[address] [facility] Housing Places 00:00:00 00:00:00 Medical Ce nter Lived History [facility] 2022-03-02 2022-03-[address] [facility] Housing Homeless 00:00:00 00:00:00 Medical Center Last Year Alcohol intake 2022-02-16 2022-02-16 Lifetime Sikh 00:00:00 00:00:00 non-drinker Hospital (finding) Tobacco use and 2022-01-16 2022-01-[address] [facility] [address] [facility]ella kes exposure 00:00:00 00:00:00 Medical Center History [facility] 2022-01-16 2022-01-[address] [facility] Alcohol Frequency 00:00:00 00:00:00 Medical Center Sex [birth year] S[facility] 00:00:00 00:00:00 Hospital Smoking Status Start Date Stop Date Source Never smoked tobacco [facility] ege of Medicine Medications Ordered Filled Start Stop Current Ordering Indication Dosage Frequency Signature Comments Components Source Medication Medication Date Date Medication? Clinician (SIG) Name Name Multiple 2021-03 Yes 1{tbl} Take 1 [facility] 2-29 Tablet by Col lege nerals 14:35: mouth of (OCUVITE-STELLA 01 daily. Medici n TEIN OR) e Multiple 2021-03 Yes 1{tbl} Take 1 [facility]-Mi 2-29 Tablet by Col lege nerals 14:35: mouth of (OCUVITE-STELLA 01 daily. Medici n TEIN OR) e LEVOTHYROXI 2021-03 Yes 25ug Take 25 [facility] ever NE SODIUM 2-29 mcg by [place] 14:34: mouth of 16 daily. Medicin Doesn't e know dose LEVOTHYROXI 2021-03 Yes 25ug Take 25 Mobile ever NE SODIUM 2-29 mcg by College OR 14:34: mouth of 16 daily. Medicin Doesn't e know dose Losartan 2021-03- No Take by [facility] Potassium-H 2-29 12-29 mouth. Pt Co llege CTZ (HYZAAR 14:34: 00:00 doesn't of OR) 16 :00 know Medicin dosage e Losartan 2021-03- No Take by [facility] Potassium-H 2-29 12-29 mouth. Pt Co llege CTZ (HYZAAR 14:34: 00:00 doesn't of OR) 16 :00 know Medicin dosage e B Complex 2021-03- No Take by [facility] Vitamins 2-29 12-29 mouth. College (B-COMPLEX/ 14:33: 00:00 of B-12) TABS 37 :00 Medicin e B Complex 2021-03- No Take by [facility] Vitamins 2-29 12-29 mouth. [place] (B-COMPLEX/ 14:33: 00:00 of B-12) TABS 37 :00 Medicin e B Complex 2021-03- No Take by [facility] Vitamins (B 2-29 12-29 mouth. Colle ge COMPLEX 100 14:33: 00:00 of OR) 25 :00 Medicin e B Complex 2021-03- No Take by [facility] Vitamins (B 2-29 12-29 mouth. Colle ge COMPLEX 100 14:33: 00:00 of OR) 25 :00 Medicin e levothyroxi 2021-03 Yes 25ug Take [address] ne 2-13 mcg by [facility]ukes (SYNTHROID, 13:50: mouth Medic al LEVOTHROID) 07 Every Center 25 MCG morning on tablet an empty stomach. cholecalcif 2021-03 Yes [id number] Q7D Take [facility] yarely, 2-13 50,000 [facility] vitamin D3, 13:50: Units by [place] 1,250 mcg 07 mouth once Cent er (50,000 a week. unit) Tab potassium 2021-03 Yes 10meq QD Take [address] chloride 2-13 mEq by Lukes (KLOR-CON-M 13:50: mouth Medic al ) 10 MEQ CR 07 daily. Center tablet metoprolol 2021-03 Yes 25mg Q.5D Take [address] tartrate 2-13 by mouth 2 [facility] (LOPRESSOR) 13:50: (two) Medic al 25 MG 07 times Center tablet daily. multivitami 2021-03 Yes 1{tbl} QD Take [address] n with 2-13 tablet by [facility] minerals 13:50: mouth Medical tablet 07 daily. Center levothyroxi 2021-03 Yes 25ug Take [address] ne 2-13 mcg by [facility] (SYNTHROID, 13:50: mouth Medic al LEVOTHROID) 07 Every Center 25 MCG morning on tablet an empty stomach. cholecalcif 2021-03 Yes [id number] Q7D Take [facility] yarely, 2-13 50,000 [facility] vitamin D3, 13:50: Units by [place] dical 1,250 mcg 07 mouth once Cent er (50,000 a week. unit) Tab potassium 2021-03 Yes 10meq QD Take [address] chloride 2-13 mEq by [facility]ukes (KLOR-CON-M 13:50: mouth Medic al ) 10 MEQ CR 07 daily. Center tablet metoprolol 2021-03 Yes 25mg Q.5D Take [address] tartrate 2-13 by mouth 2 [facility] (LOPRESSOR) 13:50: (two) Medic al 25 MG 07 times Center tablet daily. multivitami 2021-03 Yes 1{tbl} QD Take [address] n with 2-13 tablet by [facility]ukes minerals 13:50: mouth Medical tablet 07 daily. Center potassium 2021-03 Yes 10meq Take 10 [facility] chloride 2-13 mEq by [place] (KDUR) 10 00:00: mouth two of MEQ tablet 00 times Medicin daily. e potassium 2021-03 Yes 10meq Take 10 [facility] chloride 2-13 mEq by [place] (KDUR) 10 00:00: mouth two of MEQ tablet 00 times Medicin daily. e doxycycline 2021-03- No 100mg Q.5D Take [address] (MONODOX) 2-12 12-27 capsule [facility] 100 MG 00:00: 23:59 (100 mg Medical capsule 00 :00 total) by Center mouth 2 (two) times daily for 15 days. amoxicillin 2021-03- No 1{tbl} Q.5D Take [address] -clavulanat 05-10 tablet by Stella kes e 00:00: 23:59 mouth 2 Medical (AUGMENTIN) 00 :00 (two) Center 875-125 mg times per tablet daily for 15 days. doxycycline 2021-03- No 100mg Q.5D Take [address] (MONODOX) 05-10 capsule [facility] 100 MG 00:00: 23:59 (100 mg Medical capsule 00 :00 total) by Center mouth 2 (two) times daily for 15 days. amoxicillin 2021-03- No 1{tbl} Q.5D Take [address] -clavulanat 05-10 tablet by Stella kes e 00:00: 23:59 mouth 2 Medical (AUGMENTIN) 00 :00 (two) Center 875-125 mg times per tablet daily for 15 days. acetaminoph 2021-03- No 1000mg Take [address] en 05-10- tablets [facility] (TYLENOL) 00:00: 23:59 (1,000 mg Me dical 500 MG 00 :00 total) by Center tablet mouth every 8 (eight) hours for 10 days. traMADoL 2021-03- No 50mg Take [address] (ULTRAM) 50 05-10- tablet (50 L ukes mg tablet 00:00: 23:59 mg total) Me dical 00 :00 by mouth Center every 6 (six) hours as needed for up to 10 days. Max Daily Amount: 200 mg acetaminoph 2021-03- No 1000mg Take [address] en 05-10-22 tablets [facility] (TYLENOL) 00:00: 23:59 (1,000 mg Me dical 500 MG 00 :00 total) by Center tablet mouth every 8 (eight) hours for 10 days. traMADoL 2021-03- No 50mg Take [address] (ULTRAM) 50 -03 09-22 tablet (50 L ukes mg tablet 00:00: 23:59 mg total) Me dical 00 :00 by mouth Center every 6 (six) hours as needed for up to 10 days. Max Daily Amount: 200 mg iron, 2021-03 Yes 65mg QD Take Methodi carbonyl, 1-[address] 45 mg 09:28: tablets Hospita tablet 36 (65 mg l total) by mouth daily. voriconazol 2021-03 Yes Q24H daily. Meth lucinda e (VFEND) 04-18 st 200 MG 09:28: Hospita tablet 36 l potassium 2021-03 Yes 10meq Q.5D Take 1 Metho di chloride 04-18 tablet (10 st (K-DUR) 10 09:25: mEq total) H ospita MEQ CR 13 by mouth 2 l tablet (two) times a day. vit 2021-03 Yes Take by Methodi C/E/cuperic 04-[address] /zinc/lutei 09:25: Hospit a n 13 l (PRESERVISI ON LUTEIN ORAL) vibegron 2021-03 Yes QD daily. Methodi (Gemtesa) 04-18 st 75 mg 09:25: Hospita tablet 13 l levothyroxi 2021-03- No 25ug Take [address] ne 0-30 11-29 tablet (25 [facility] (SYNTHROID, 00:00: 23:59 mcg total) Medical LEVOTHROID) 00 :00 by mouth Cent er 25 MCG Every tablet morning on an empty stomach for 30 days. ferrous 2021-03- No 325mg QD Take [address] sulfate 325 0-30 11-29 tablet [facility] (65 FE) MG 00:00: 23:59 (325 mg Med ical tablet 00 :00 total) by Center mouth daily for 30 days. levothyroxi 2021-03- No 25ug Take [address] ne 0-30 11-29 tablet (25 [facility] (SYNTHROID, 00:00: 23:59 mcg total) Medical LEVOTHROID) 00 :00 by mouth Cent er 25 MCG Every tablet morning on an empty stomach for 30 days. ferrous 2021-03- No 325mg QD Take [address] sulfate 325 0-30 11-29 tablet [facility] (65 FE) MG 00:00: 23:59 (325 mg Med ical tablet 00 :00 total) by Center mouth daily for 30 days. dilTIAZem 2021-03- No 120mg QD Take [address] (CARDIZEM) 0-29 10-29 mg by [facility]ukes 120 MG 14:30: 00:00 mouth Medical tablet 11 :00 daily. Center levothyroxi 2021-03- No 50ug Take [address] ne 0-29 10-29 mcg by [facility]ukes (SYNTHROID, 14:30: 00:00 mouth Medi ann LEVOTHROID) 11 :00 Every Center 50 MCG morning on tablet an empty stomach. losartan- 2021-03- No 1{tbl} QD Take [address] drochloroth 0-29 10-29 tablet by Stella chelys iazide 14:30: 00:00 mouth Medical (HYZAAR) 11 :00 daily. Center 100-12.5 mg per tablet dilTIAZem 2021-03- No 120mg QD Take [address] (CARDIZEM) 0-29 10-29 mg by [facility]ukes 120 MG 14:30: 00:00 mouth Medical tablet 11 :00 daily. [place] levothyroxi 2021-03- No 50ug Take [address] ne 0-29 10-29 mcg by [place] (SYNTHROID, 14:30: 00:00 mouth Medi ann LEVOTHROID) 11 :00 Every Center 50 MCG morning on tablet an empty stomach. losartan- 2021-03- No 1{tbl} QD Take [address] drochloroth 0-29 10-29 tablet by Stella mos iazide 14:30: 00:00 mouth Medical (HYZAAR) 11 :00 daily. Center 100-12.5 mg per tablet metoprolol 2021-03 Yes 25mg Take 25 mg [facility] (LOPRESSOR) 0-29 by mouth Kim ege 25 MG 00:00: two times of tablet 00 daily. Medicin e metoprolol 2021-03 Yes 25mg Take 25 mg [facility] (LOPRESSOR) 0-29 by mouth Kim ege 25 MG 00:00: two times of tablet 00 daily. Medicin e famotidine 2021-03 Yes Methodi (PEPCID) 20 0-29 st MG tablet 00:00: Hospita 00 l FeroSuL 325 2021-03 Yes Method i mg (65 mg 0-29 st iron) 00:00: Hospita tablet 00 l metoprolol 2021-03 Yes Methodi tartrate 0-29 st (LOPRESSOR) 00:00: Hospit a 25 mg 00 l tablet famotidine 2021-03- No 20mg Q24H Take [address] (PEPCID) 20 0-29 11-28 tablet (20 L ukes MG tablet 00:00: 23:59 mg total) Me dical 00 :00 by mouth Center daily for 30 days. metoprolol 2021-03- No 25mg Q.5D Take [address] tartrate 0-29 11-28 tablet (25 Luke s (LOPRESSOR) 00:00: 23:59 mg total) Medical 25 MG 00 :00 by mouth 2 Center tablet (two) times daily for 30 days. famotidine 2021-03- No 20mg Q24H Take [address] (PEPCID) 20 0-29 11-28 tablet (20 L ukes MG tablet 00:00: 23:59 mg total) Me dical 00 :00 by mouth Center daily for 30 days. metoprolol 2021-03- No 25mg Q.5D Take [address] tartrate 0-29 11-28 tablet (25 Luke s (LOPRESSOR) 00:00: 23:59 mg total) Medical 25 MG 00 :00 by mouth 2 Center tablet (two) times daily for 30 days. acetaminoph 2021-03- No 650mg Take [address] en 0-29 11-08 tablets [facility]ukes (TYLENOL) 00:00: 23:59 (650 mg Medi ann 325 MG 00 :00 total) by Center tablet mouth every 6 (six) hours as needed (fever and pain) for up to 10 days. acetaminoph 2021-03- No 650mg Take [address] en 0-29 11-08 tablets [facility] (TYLENOL) 00:00: 23:59 (650 mg Medi ann 325 MG 00 :00 total) by Center tablet mouth every 6 (six) hours as needed (fever and pain) for up to 10 days. amoxicillin 2021-03 Yes Method i -pot 0-28 st clavulanate 00:00: Hospit a (AUGMENTIN) 00 l 875-125 mg per tablet amoxicillin 2021-03- No 1{tbl} Take 1 [facility] -clavulanat 0-28 12-29 Tablet by Co llege e 00:00: 00:00 mouth two of (AUGMENTIN) 00 :00 times Medicin 875-125 MG daily. e per tablet amoxicillin 2021-03- No 1{tbl} Take 1 [facility] -clavulanat 0-28 12-29 Tablet by Ishmael ryan 00:00: 00:00 mouth two of (AUGMENTIN) 00 :00 times Medicin 875-125 MG daily. e per tablet voriconazol 2021-03 No 200mg QD Take [address] e (VFEND) 0-27 11-26 tablet [facility] 200 MG 00:00: 23:59 (200 mg Medical tablet 00 :00 total) by Center mouth daily for 30 days. voriconazol 2021-03 No 200mg QD Take [address] e (VFEND) 0-27 11-26 tablet [facility] 200 MG 00:00: 23:59 (200 mg Medical tablet 00 :00 total) by Center mouth daily for 30 days. amoxicillin 2021-03- No 1{tbl} Take [address] -clavulanat 0-26 11-25 tablet by Stella ryan 00:00: 23:59 mouth Medical (AUGMENTIN) 00 :00 every 12 Cent er 875-125 mg (twelve) per tablet hours for 30 days. amoxicillin 2021-03- No 1{tbl} Take [address] -clavulanat 0-26 11-25 tablet by Stella ryan 00:00: 23:59 mouth Medical (AUGMENTIN) 00 :00 every 12 Cent er 875-125 mg (twelve) per tablet hours for 30 days. iron, Yes 65mg QD Take Methodi carbonyl, 11-[address] 45 mg 11:15: tablets Hospita tablet 20 (65 mg l total) by mouth daily. potassium Yes 10meq Q.5D Take 1 Metho di chloride 11-27 tablet (10 st (K-DUR) 10 11:15: mEq total) H ospita MEQ CR 20 by mouth 2 l tablet (two) times a day. vit Yes Take by Methodi C/E/cuperic 11-[address] /zinc/lutei 11:15: Hospit a n 20 l (PRESERVISI ON LUTEIN ORAL) vibegron Yes QD daily. Methodi (Gemtesa) 11-27 st 75 mg 11:15: Hospita tablet 20 l polyethylen 2-0 2- No [id number] 4000mL Take 4,000 Methodi e glycol 8-26 08-[address] (Golytely) 00:00: 04:59 mouth once Hospita [id number] 00 :00 for 1 l .74 -5.86 dose. gram solution polyethylen 2-0 2- No [id number] 4000mL Take 4,000 Methodi e glycol 8-26 08-[address] (Programeterytely) 00:00: 04:59 mouth once Hospita [id number] 00 :00 for 1 l .74 -5.86 dose. gram solution cholecalcif 2022-0 Yes [id number] Take [facility] yarely 08-09 50,000 College (VITAMIN 00:00: Units by of D3) 1.25 MG 00 mouth Medicin (84808 UT) every 7 e CAPS days. cholecalcif 2022-0 Yes [id number] Take [facility] yarely 08-09 50,000 College (VITAMIN 00:00: Units by of D3) 1.25 MG 00 mouth Medicin (56656 UT) every 7 e CAPS days. cholecalcif 2022-0 Yes [id number] 1 capsule. Methodi yarely, 08-09 st vitamin D3, 00:00: Hospit a 1,250 mcg 00 l (50,000 unit) capsule cholecalcif 2022-0 Yes [id number] 1 capsule. Methodi yarely, 08-09 st vitamin D3, 00:00: Hospit a 1,250 mcg 00 l (50,000 unit) capsule pantoprazol 2021-0 Yes Method i e -14 st (PROTONIX) 00:00: Hospita 40 MG EC 00 l tablet pantoprazol 2021-0 Yes Method i e 3-14 st (PROTONIX) 00:00: Hospita 40 MG EC 00 l tablet naltrexone- Yes Take by Uni vers bupropion 11-04 mouth. ity of (CONTRAVE) 19:23: [place] 8-90 mg per 37 Medical tablet Branch VITS Yes Take by Univers A,C,E/ZINC/ 11-04 mouth. ity of COPPER 19:23: [place] (VISION-VIT 37 Medical E PRESERVE Branch ORAL) VITAMIN B Yes Take by Unive rs COMPLEX (B 8-09 mouth. ity of COMPLEX 19:23: [place] ORAL) 37 Medical Branch CYANOCOBALA 2016- Yes Place Unive rs MIN/COBAMAM 8-09 under the ity of DIVINE (B12 19:23: tongue. [place] SL) 37 Medical Branch naltrexone- Yes Take by Uni vers bupropion 8-09 mouth. ity of (CONTRAVE) 19:23: [place] 8-90 mg per 37 Medical tablet Branch naltrexone- Yes Take by Uni vers bupropion 8-09 mouth. ity of (CONTRAVE) 19:23: [place] 8-90 mg per 37 Medical tablet Branch VITS Yes Take by Univers A,C,E/ZINC/ 8-09 mouth. ity of COPPER 19:23: [place] (VISION-VIT 37 Medical E PRESERVE Branch ORAL) VITAMIN B Yes Take by Unive rs COMPLEX (B 8-09 mouth. ity of COMPLEX 19:23: [place] ORAL) 37 Medical Branch CYANOCOBALA Yes Place Unive rs MIN/COBAMAM 8-09 under the ity of DIVINE (B12 19:23: tongue. [facility]) 37 Medical Branch VITS Yes Take by Univers A,C,E/ZINC/ 8-09 mouth. ity of COPPER 19:23: [place] (VISION-VIT 37 Medical E PRESERVE Branch ORAL) naltrexone- Yes Take by Uni vers bupropion 8-09 mouth. ity of (CONTRAVE) 19:23: [place] 8-90 mg per 37 Medical tablet Branch VITS Yes Take by Univers A,C,E/ZINC/ 8-09 mouth. ity of COPPER 19:23: [place] (VISION-VIT 37 Medical E PRESERVE Branch ORAL) VITAMIN B Yes Take by Unive rs COMPLEX (B 8-09 mouth. ity of COMPLEX 19:23: [place] ORAL) 37 Medical Branch VITAMIN B 2017-0 Yes Take by Unive rs COMPLEX (B 8-09 mouth. ity of COMPLEX 19:23: [place] ORAL) 37 Medical Branch CYANOCOB[address]A Yes Place Unive rs MIN/COBAMAM 8-09 under the ity of DIVINE (B12 19:23: tongue. [place] SL) 37 Medical Branch naltrexone- 2017-0 Yes Take by Uni vers bupropion 8-09 mouth. ity of (CONTRAVE) 19:23: [place] 8-90 mg per 37 Medical tablet Branch VITS 2017-0 Yes Take by Univers A,C,E/ZINC/ 8-09 mouth. ity of COPPER 19:23: [place] (VISION-VIT 37 Medical E PRESERVE Branch ORAL) VITAMIN B 2017- Yes Take by Unive rs COMPLEX (B 8-09 mouth. ity of COMPLEX 19:23: [place] ORAL) 37 Medical Branch CYANOCOBALA Yes Place Unive rs MIN/COBAMAM 8-09 under the ity of DIVINE (B12 19:23: tongue. [facility]) 37 Medical Branch CYANOCOBALA Yes Place Unive rs MIN/COBAMAM 8-09 under the ity of DIVINE (B12 19:23: tongue. [facility]) 37 Medical Branch naltrexone- Yes Take by Uni vers bupropion 8-09 mouth. ity of (CONTRAVE) 19:23: [place] 8-90 mg per 37 Medical tablet Branch VITS 0 Yes Take by Univers A,C,E/ZINC/ 8-09 mouth. ity of COPPER 19:23: [place] (VISION-VIT 37 Medical E PRESERVE Branch ORAL) VITAMIN B Yes Take by Unive rs COMPLEX (B 8-09 mouth. ity of COMPLEX 19:23: [place] ORAL) 37 Medical Branch CYANOCOBALA Yes Place Unive rs MIN/COBAMAM 8-09 under the ity of DIVINE (B12 19:23: tongue. [facility]) 37 Medical Branch naltrexone- 0 Yes Take by Uni vers bupropion 8-09 mouth. ity of (CONTRAVE) 19:23: [place] 8-90 mg per 37 Medical tablet Branch VITS 2016-0 Yes Take by Univers A,C,E/ZINC/ 8-09 mouth. ity of COPPER 19:23: [place] (VISION-VIT 37 Medical E PRESERVE Branch ORAL) VITAMIN B 2017-0 Yes Take by Unive rs COMPLEX (B 8-09 mouth. ity of COMPLEX 19:23: [place] ORAL) 37 Medical Branch CYANOCOB[address]A Yes Place Unive rs MIN/COBAMAM 8-09 under the ity of DIVINE (B12 19:23: tongue. [place] [facility]) 37 Medical Branch naltrexone- 2017-0 Yes Take by Uni vers bupropion 8-09 mouth. ity of (CONTRAVE) 19:23: [place] 8-90 mg per 37 Medical tablet Branch VITS 2017-0 Yes Take by Univers A,C,E/ZINC/ 8-09 mouth. ity of COPPER 19:23: [place] (VISION-VIT 37 Medical E PRESERVE Branch ORAL) VITAMIN B 2017- Yes Take by Unive rs COMPLEX (B 8-09 mouth. ity of COMPLEX 19:23: [place] ORAL) 37 Medical Branch CYANOCOBALA 2017- Yes Place Unive rs MIN/COBAMAM 8-09 under the ity of DIVINE (B12 19:23: tongue. [place] [facility]) 37 Medical Branch naltrexone- 2016-0 Yes Take by Uni vers bupropion 8-09 mouth. ity of (CONTRAVE) 19:23: [place] 8-90 mg per 37 Medical tablet Branch VITS 2017-0 Yes Take by Univers A,C,E/ZINC/ 8-09 mouth. ity of COPPER 19:23: [place] (VISION-VIT 37 Medical E PRESERVE Branch ORAL) VITAMIN B 2016- Yes Take by Unive rs COMPLEX (B 8-09 mouth. ity of COMPLEX 19:23: [place] ORAL) 37 Medical Branch CYANOCOBALA 2016-[address] Unive rs MIN/COBAMAM 8-09 under the ity of DIVINE (B12 19:23: tongue. [facility]) 37 Medical Branch naltrexone- 2016-0 Yes Take by Uni vers bupropion 8-09 mouth. ity of (CONTRAVE) 19:23: [place] 8-90 mg per 37 Medical tablet Branch VITS 2017-0 Yes Take by Univers A,C,E/ZINC/ 8-09 mouth. ity of COPPER 19:23: [place] (VISION-VIT 37 Medical E PRESERVE Branch ORAL) VITAMIN B 2017-0 Yes Take by Unive rs COMPLEX (B 8-09 mouth. ity of COMPLEX 19:23: [place] ORAL) 37 Medical Branch CYANOCOBALA 2017-[address] Unive rs MIN/COBAMAM 8-09 under the ity of DIVINE (B12 19:23: tongue. [facility]) 37 Medical Branch naltrexone- 2017-0 Yes Take by Uni vers bupropion 8-09 mouth. ity of (CONTRAVE) 19:23: [place] 8-90 mg per 37 Medical tablet Branch VITS Yes Take by Univers A,C,E/ZINC/ 8 mouth. ity of COPPER 19:23: [place] (VISION-VIT 37 Medical E PRESERVE Branch ORAL) VITAMIN B Yes Take by Unive rs COMPLEX (B 8- mouth. ity of COMPLEX 19:23: [place] ORAL) 37 Medical Branch CYANOCOBALA Yes Place Unive rs MIN/COBAMAM 8 under the ity of DIVINE (B12 19:23: tongue. [facility]) 37 Medical Branch naltrexone- Yes Take by Uni vers bupropion 8- mouth. ity of (CONTRAVE) 19:23: [place] 8-90 mg per 37 Medical tablet Branch VITS Yes Take by Univers A,C,E/ZINC/ 8 mouth. ity of COPPER 19:23: [place] (VISION-VIT 37 Medical E PRESERVE Branch ORAL) VITAMIN B Yes Take by Unive rs COMPLEX (B 8 mouth. ity of COMPLEX 19:23: [place] ORAL) 37 Medical Branch CYANOCOB[address]A Yes Place Unive rs MIN/COBAMAM 809 under the ity of DIVINE (B12 19:23: tongue. [facility]) Medical Branch levothyroxi Yes levothyrox [facility] 8-[address] (SYNTHROID) 00:00: tablet Hosp abhinav 25 mcg 00 l tablet levothyroxi Yes levothyrox [facility] ne 8-[address] (SYNTHROID) 00:00: tablet Hosp abhinav 25 mcg 00 l tablet levothyroxi Yes Univer s ne 25 mcg 8-08 ity of tablet 00:00: Medical Branch levothyroxi Yes Univer s ne 25 mcg 8-08 ity of tablet 00:00: Medical Branch levothyroxi Yes Univer s ne 25 mcg 8-08 ity of tablet 00:00: Medical Branch levothyroxi Yes Univer s ne 25 mcg 8-08 ity of tablet 00:00: Medical Branch levothyroxi Yes Univer s ne 25 mcg 8-08 ity of tablet 00:00: Medical Branch levothyroxi 2017-0 Yes Univer s ne 25 mcg 8-08 ity of tablet 00:00: [place] [facility] levothyroxi 2017-0 Yes Univer s ne 25 mcg 8-08 ity of tablet 00:00: [place] [facility] levothyroxi 2017-0 Yes Univer s ne 25 mcg 8-08 ity of tablet 00:00: [place] [facility] levothyroxi 2017-0 Yes Univer s ne 25 mcg 8-08 ity of tablet 00:00: [place] [facility] levothyroxi 2017-0 Yes Univer s ne 25 mcg 8-08 ity of tablet 00:00: [place] [facility] levothyroxi 2017-0 Yes Univer s ne 25 mcg 8-08 ity of tablet 00:00: [place] [facility] levothyroxi [id number] Yes Univer s ne 25 mcg 8-08 ity of tablet 00:00: [place] [facility] CARTIA XT [id number] Yes Univers 180 mg 24 8-02 ity of hr capsule 00:00: [place] [facility] CARTIA XT 2017-0 Yes [facility] 180 mg 24 8-02 ity of hr capsule 00:00: [place] [facility] CARTIA XT 2017-0 Yes Univers 180 mg 24 8-02 ity of hr capsule 00:00: [place] [facility] CARTIA XT 2017-0 Yes Univers 180 mg 24 8-02 ity of hr capsule 00:00: [place] [facility] CARTIA XT 2017-0 Yes Univers 180 mg 24 8-02 ity of hr capsule 00:00: [place] [facility] CARTIA XT 2017-0 Yes Univers 180 mg 24 8-02 ity of hr capsule 00:00: [place] [facility] CARTIA XT 2017-0 Yes [facility] 180 mg 24 8-02 ity of hr capsule 00:00: [place] [facility] CARTIA XT 2017-0 Yes Univers 180 mg 24 8-02 ity of hr capsule 00:00: [place] [facility] CARTIA XT 2017-0 Yes [facility] 180 mg 24 8-02 ity of hr capsule 00:00: [place] [facility] CARTIA XT 2017-0 Yes Univers 180 mg 24 8-02 ity of hr capsule 00:00: [place] [facility] CARTIA XT 2017-0 Yes [facility] 180 mg 24 8-02 ity of hr capsule 00:00: [place] 00 Medical Branch CARTIA XT 2017-0 Yes Univers 180 mg 24 8-02 ity of hr capsule 00:00: [place] 00 Medical Branch losartan-hy Yes losartan Me thodi drochloroth 10-[address] iazide 00:00: mg-hydroch Hospi ta (HYZAAR) 00 lorothiazi l 100-25 mg de 25 mg per tablet tablet losartan-hy Yes losartan Me thodi drochloroth 10-[address] iazide 00:00: mg-hydroch Hospi ta (HYZAAR) 00 lorothiazi l 100-25 mg de 25 mg per tablet tablet losartan-hy Yes Univer s drochloroth 10-26 ity of iazide 00:00: [place] 100-25 mg 00 Medical per tablet Branch losartan-hy Yes Univer s drochloroth 10-26 ity of iazide 00:00: [place] 100-25 mg 00 Medical per tablet Branch losartan-hy Yes Univer s drochloroth 10-26 ity of iazide 00:00: [place] 100-25 mg 00 Medical per tablet Branch losartan-hy Yes Univer s drochloroth 10-26 ity of iazide 00:00: [place] 100-25 mg 00 Medical per tablet Branch losartan-hy Yes Univer s drochloroth 10-26 ity of iazide 00:00: [place] 100-25 mg 00 Medical per tablet Branch losartan-hy Yes Univer s drochloroth - ity of iazide 00:00: [place] 100-25 mg 00 Medical per tablet Branch losartan-hy 0 Yes Univer s drochloroth - ity of iazide 00:00: [place] 100-25 mg 00 Medical per tablet Branch losartan-hy Yes Univer s drochloroth - ity of iazide 00:00: [place] 100-25 mg 00 Medical per tablet Branch losartan-hy Yes Univer s drochloroth - ity of iazide 00:00: [place] 100-25 mg 00 Medical per tablet Branch losartan-hy Yes Univer s drochloroth - ity of iazide 00:00: [place] 100-25 mg 00 Medical per tablet Branch losartan-hy Yes Univer s drochloroth 10-26 ity of iazide 00:00: [place] 100-25 mg 00 Medical per tablet Branch losartan-hy Yes Univer s drochloroth 10-26 ity of iazide 00:00: [place] 100-25 mg 00 Medical per tablet Branch prednisoLON Yes PLACE 1 [employer] ever E acetate 5-28 DROP INTO Colle ge (PRED 00:00: BOTH EYES of FORTE) 1 % 00 DAILY. Medicin ophthalmic e suspension prednisoLON Yes PLACE 1 [employer] ever E acetate 5-28 DROP INTO Colle ge (PRED 00:00: BOTH EYES of FORTE) 1 % 00 DAILY. Medicin ophthalmic e suspension dicyclomine dicyclomine No 1capsul QID dicyclomin [place] 10 mg 10 mg e(s) e 10 mg da capsule capsule capsule [place] p Take 1 Take 1 Take 1 al capsule 4 capsule 4 capsule 4 Health times a day times a day times a Outreac by oral by oral day by h route as route as oral route P rogram needed. needed. as needed. diltiazem diltiazem No diltiazem [place] CD 120 mg CD 120 mg CD 120 mg da capsule,ext capsule,ext capsule,ex [facility] ended ended tended al release 24 release 24 release 24 Health hr hr hr Outreac h Program iron 27 mg iron 27 mg No iron 27 mg [place] iron tablet iron tablet iron d a Take by Take by tablet [facility] oral route. oral route. Take by al oral Health route. Outreac h Program krill oil krill oil No krill oil [place] [facility] levothyroxi levothyroxi No levothyrox [place] ne 25 mcg ne 25 mcg ine 25 mcg da tablet tablet tablet [facility] losartan losartan No losartan [place] 100 100 100 da mg-hydrochl mg-hydrochl mg-hydroch [facility] orothiazide orothiazide lorothiazi al 25 mg 25 mg de 25 mg Health tablet tablet tablet Outreac h Program Tatum 3 Tatum 3 No Tatum 3 [place] [facility] pantoprazol pantoprazol No pantoprazo [place] e 40 mg e 40 mg le 40 mg da tablet,hawa tablet,hawa tablet,del [facility] yed release yed release ayed a l release Health Outreac h Program potassium potassium No potassium [place] chloride ER chloride ER chloride da 20 mEq 20 mEq ER 20 mEq [place] p tablet,exte tablet,exte tablet,ext al nded nded ended Health release release release Outrea c h Program turmeric turmeric No turmeric [place] 500 500 500 da mg-black mg-black mg-black Epi scop pepper pepper pepper al extract 3 extract 3 extract 3 Health mg capsule mg capsule mg capsule Outreac Take by Take by Take by h oral route. oral route. oral P rogram route. cholecalcif cholecalcif No cholecalci [place] yarely yarely ferol Communi (vitamin (vitamin (vitamin ty D3) 1,250 D3) 1,250 D3) 1,250 Hospita mcg (50,000 mcg (50,000 mcg l unit) unit) (50,000 Clinics capsule capsule unit) TAKE 1 TAKE 1 capsule CAPSULE CAPSULE TAKE 1 EVERY WEEK EVERY WEEK CAPSULE EVERY WEEK Iron Iron No Iron [place] (ferrous (ferrous (ferrous Com maria r sulfate) sulfate) sulfate) ty BID with BID with BID with Hos doug food food food l Clinics levothyroxi levothyroxi No levothyrox [place] ne 25 mcg ne 25 mcg ine 25 mcg Communi tablet TAKE tablet TAKE tablet ty 1 TABLET 1 TABLET TAKE 1 Hospi ta EVERY DAY EVERY DAY TABLET l EVERY DAY Clinics losartan losartan No losartan [place] 100 100 100 Communi mg-hydrochl mg-hydrochl mg-hydroch ty orothiazide orothiazide lorothiazi Hospita 25 mg 25 mg de 25 mg l tablet TAKE tablet TAKE tablet Clinics 1 TABLET 1 TABLET TAKE 1 EVERY DAY EVERY DAY TABLET EVERY DAY pantoprazol pantoprazol No pantoprazo [place] e 40 mg e 40 mg le 40 mg Commu ni tablet,hawa tablet,hawa tablet,del ty yed release yed release ayed H ospita TAKE 1 TAKE 1 release l TABLET TABLET TAKE 1 Clinics EVERY DAY EVERY DAY TABLET EVERY DAY potassium potassium No potassium [place] chloride ER chloride ER chloride Communi 20 mEq 20 mEq ER 20 mEq ty tablet,exte tablet,exte tablet,ext Hospita nded nded ended l release release release Clinic s TAKE ONE TAKE ONE TAKE ONE TABLET BY TABLET BY TABLET BY MOUTH DAILY MOUTH DAILY MOUTH DAILY PreserVisio PreserVisio No PreserVisi [place] n AREDS-2 n AREDS-2 on AREDS-2 Communi ty Hospita l Clinics B12 B12 No B12 [place] Commun[facility] ty [facility]osp[facility] l Clinics cholecalcif cholecalcif No 1capsul Q1W cholecalci [place] yarely yarely e(s) ferol Communi (vitamin (vitamin (vitamin ty D3) 1,250 D3) 1,250 D3) 1,250 Hospita mcg (50,000 mcg (50,000 mcg l unit) unit) (50,000 Clinics capsule capsule unit) Take 1 Take 1 capsule capsule capsule Take 1 every week every week capsule by oral by oral every week route. route. by oral route. diltiazem diltiazem No diltiazem [place] CD 120 mg CD 120 mg CD 120 mg Communi capsule,ext capsule,ext capsule,ex ty ended ended tended Hospita release 24 release 24 release 24 l hr TAKE 1 hr TAKE 1 hr TAKE 1 Clinics CAPSULE CAPSULE CAPSULE EVERY DAY EVERY DAY EVERY DAY levothyroxi levothyroxi No levothyrox [place] ne 25 mcg ne 25 mcg ine 25 mcg Communi tablet TAKE tablet TAKE tablet ty 1 TABLET 1 TABLET TAKE 1 Hospi ta EVERY DAY EVERY DAY TABLET l EVERY DAY Clinics losartan losartan No losartan [place] 100 100 100 Communi mg-hydrochl mg-hydrochl mg-hydroch ty orothiazide orothiazide lorothiazi Hospita 25 mg 25 mg de 25 mg l tablet TAKE tablet TAKE tablet Clinics 1 TABLET 1 TABLET TAKE 1 EVERY DAY EVERY DAY TABLET EVERY DAY pantoprazol pantoprazol No pantoprazo [place] e 40 mg e 40 mg le 40 mg Commu ni tablet,hawa tablet,hawa tablet,del ty yed release yed release ayed H ospita TAKE 1 TAKE 1 release l TABLET TABLET TAKE 1 Clinics EVERY DAY EVERY DAY TABLET EVERY DAY PreserVisio PreserVisio No PreserVisi [place] n AREDS-2 n AREDS-2 on AREDS-2 Communi ty Hospita l Clinics turmeric turmeric No turmeric [place] Communi ty [facility]osp[facility] l Clinics B12 B12 No B12 [place] [facility] ty [facility]osp[facility] l Clinics cholecalcif cholecalcif No 1capsul Q1W cholecalci [place] yarely yarely e(s) ferol Communi (vitamin (vitamin (vitamin ty D3) 1,250 D3) 1,250 D3) 1,250 Hospita mcg (50,000 mcg (50,000 mcg l unit) unit) (50,000 Clinics capsule capsule unit) Take 1 Take 1 capsule capsule capsule Take 1 every week every week capsule by oral by oral every week route. route. by oral route. diclofenac diclofenac No diclofenac [place] sodium 75 sodium 75 sodium 75 Communi mg mg mg ty tablet,hawa tablet,[place]awa tablet,del Hospita yed release yed release ayed l release Clinics diltiazem diltiazem No diltiazem [place] CD 120 mg CD 120 mg CD 120 mg Communi capsule,ext capsule,ext capsule,ex ty ended ended tended Hospita release 24 release 24 release 24 l hr TAKE 1 hr TAKE 1 hr TAKE 1 Clinics CAPSULE CAPSULE CAPSULE EVERY DAY EVERY DAY EVERY DAY famotidine famotidine No famotidine [place] 20 mg 20 mg 20 mg Communi tablet tablet tablet ty [facility] levothyroxi levothyroxi No levothyrox [place] ne 25 mcg ne 25 mcg ine 25 mcg Communi tablet TAKE tablet TAKE tablet ty 1 TABLET 1 TABLET TAKE 1 Hospi ta EVERY DAY EVERY DAY TABLET l EVERY DAY Clinics losartan losartan No losartan [place] 100 100 100 Communi mg-hydrochl mg-hydrochl mg-hydroch ty orothiazide orothiazide lorothiazi Hospita 25 mg 25 mg de 25 mg l tablet TAKE tablet TAKE tablet Clinics 1 TABLET 1 TABLET TAKE 1 EVERY DAY EVERY DAY TABLET EVERY DAY ondansetron ondansetron No ondansetro [place] HCl 4 mg HCl 4 mg n HCl 4 mg C ommuni tablet tablet tablet ty [facility] pantoprazol pantoprazol No pantoprazo [place] e 40 mg e 40 mg le 40 mg Commu ni tablet,hawa tablet,[place]awa tablet,del ty yed release yed release ayed H ospita TAKE 1 TAKE 1 release l TABLET TABLET TAKE 1 Clinics EVERY DAY EVERY DAY TABLET EVERY DAY PreserVisio PreserVisio No PreserVisi [place] n AREDS-2 n AREDS-2 on AREDS-2 Communi ty [facility] turmeric turmeric No turmeric [place] Communi ty Hospita l Clinics Anusol-HC Anusol-HC No 1suppos BID Anusol-HC [place] 25 mg 25 mg itor(y/ 25 mg Communi rectal rectal ies) rectal ty suppository suppository suppositor Hospita Insert 1 Insert 1 y Insert 1 l suppository suppository suppositor Clinics twice a day twice a day y twice a by rectal by rectal day by route for route for rectal 14 days. 14 days. route for 14 days. B12 B12 No B12 [place] Communi ty [facility] cholecalcif cholecalcif No 1capsul Q1W cholecalci [place] yarely yarely e(s) ferol Communi (vitamin (vitamin (vitamin ty D3) 1,250 D3) 1,250 D3) 1,250 Hospita mcg (50,000 mcg (50,000 mcg l unit) unit) (50,000 Clinics capsule capsule unit) Take 1 Take 1 capsule capsule capsule Take 1 every week every week capsule by oral by oral every week route. route. by oral route. diclofenac diclofenac No diclofenac [place] sodium 75 sodium 75 sodium 75 Communi mg mg mg ty tablet,hawa tablet,[place]awa tablet,del Hospita yed release yed release ayed l release Clinics diltiazem diltiazem No diltiazem [place] CD 120 mg CD 120 mg CD 120 mg Communi capsule,ext capsule,ext capsule,ex ty ended ended tended Hospita release 24 release 24 release 24 l hr TAKE 1 hr TAKE 1 hr TAKE 1 Clinics CAPSULE CAPSULE CAPSULE EVERY DAY EVERY DAY EVERY DAY famotidine famotidine No famotidine [place] 20 mg 20 mg 20 mg Communi tablet tablet tablet ty [facility] ibuprofen ibuprofen No ibuprofen [place] 600 mg 600 mg 600 mg Communi tablet tablet tablet ty [facility] levothyroxi levothyroxi No levothyrox [place] ne 25 mcg ne 25 mcg ine 25 mcg Communi tablet TAKE tablet TAKE tablet ty 1 TABLET 1 TABLET TAKE 1 Hospi ta EVERY DAY EVERY DAY TABLET l EVERY DAY Clinics losartan losartan No losartan [place] 100 100 100 Communi mg-hydrochl mg-hydrochl mg-hydroch ty orothiazide orothiazide lorothiazi Hospita 25 mg 25 mg de 25 mg l tablet TAKE tablet TAKE tablet Clinics 1 TABLET 1 TABLET TAKE 1 EVERY DAY EVERY DAY TABLET EVERY DAY ondansetron ondansetron No ondansetro [place] HCl 4 mg HCl 4 mg n HCl 4 mg C ommuni tablet tablet tablet [facility] pantoprazol pantoprazol No pantoprazo [place] e 40 mg e 40 mg le 40 mg Commu ni tablet,hawa tablet,[place]awa tablet,del ty yed release yed release ayed H ospita TAKE 1 TAKE 1 release l TABLET TABLET TAKE 1 Clinics EVERY DAY EVERY DAY TABLET EVERY DAY potassium potassium No potassium [place] chloride ER chloride ER chloride Communi 20 mEq 20 mEq ER 20 mEq ty tablet,exte tablet,exte tablet,ext Hospita nded nded ended l release release release Clinic s Take 1 Take 1 Take 1 tablet tablet tablet every day every day every day by oral by oral by oral route for route for route for 30 days. 30 days. 30 days. PreserVisio PreserVisio No PreserVisi [place] n AREDS-2 n AREDS-2 on AREDS-2 Communi [facility] turmeric turmeric No turmeric [place] Communi [facility] Anusol-HC Anusol-HC No 1suppos BID Anusol-HC [place] 25 mg 25 mg itor(y/ 25 mg Communi rectal rectal ies) rectal ty suppository suppository suppositor [facility] Insert 1 Insert 1 y Insert 1 l suppository suppository suppositor Clinics twice a day twice a day y twice a by rectal by rectal day by route for route for rectal 14 days. 14 days. route for 14 days. B12 B12 No B12 [place] Communi [facility] cholecalcif cholecalcif No 1capsul Q1W cholecalci [place] yarely yarely e(s) ferol Communi (vitamin (vitamin (vitamin ty D3) 1,250 D3) 1,250 D3) 1,250 Hospita mcg (50,000 mcg (50,000 mcg l unit) unit) (50,000 Clinics capsule capsule unit) Take 1 Take 1 capsule capsule capsule Take 1 every week every week capsule by oral by oral every week route. route. by oral route. diclofenac diclofenac No diclofenac [place] sodium 75 sodium 75 sodium 75 Communi mg mg mg ty tablet,hawa tablet,hawa tablet,del Hospita yed release yed release ayed l release Clinics diltiazem diltiazem No diltiazem [place] CD 120 mg CD 120 mg CD 120 mg Communi capsule,ext capsule,ext capsule,ex ty ended ended tended Hospita release 24 release 24 release 24 l hr TAKE 1 hr TAKE 1 hr TAKE 1 Clinics CAPSULE CAPSULE CAPSULE EVERY DAY EVERY DAY EVERY DAY famotidine famotidine No famotidine [place] 20 mg 20 mg 20 mg Communi tablet tablet tablet ty [facility] ibuprofen ibuprofen No ibuprofen [place] 600 mg 600 mg 600 mg Communi tablet tablet tablet ty [facility] levothyroxi levothyroxi No levothyrox [place] ne 25 mcg ne 25 mcg ine 25 mcg Communi tablet TAKE tablet TAKE tablet ty 1 TABLET 1 TABLET TAKE 1 Hospi ta EVERY DAY EVERY DAY TABLET l EVERY DAY Clinics losartan losartan No losartan [place] 100 100 100 Communi mg-hydrochl mg-hydrochl mg-hydroch ty orothiazide orothiazide lorothiazi Hospita 25 mg 25 mg de 25 mg l tablet TAKE tablet TAKE tablet Clinics 1 TABLET 1 TABLET TAKE 1 EVERY DAY EVERY DAY TABLET EVERY DAY ondansetron ondansetron No ondansetro [place] HCl 4 mg HCl 4 mg n HCl 4 mg C ommuni tablet tablet tablet ty [facility] pantoprazol pantoprazol No pantoprazo [place] e 40 mg e 40 mg le 40 mg Commu ni tablet,hawa tablet,[place]awa tablet,del ty yed release yed release ayed H ospita TAKE 1 TAKE 1 release l TABLET TABLET TAKE 1 Clinics EVERY DAY EVERY DAY TABLET EVERY DAY potassium potassium No potassium [place] chloride ER chloride ER chloride Communi 20 mEq 20 mEq ER 20 mEq ty tablet,exte tablet,exte tablet,ext Hospita nded nded ended l release release release Clinic s Take 1 Take 1 Take 1 tablet tablet tablet every day every day every day by oral by oral by oral route for route for route for 30 days. 30 days. 30 days. PreserVisio PreserVisio No PreserVisi [place] n AREDS-2 n AREDS-2 on AREDS-2 Communi ty [facility] turmeric turmeric No turmeric [place] Communi [facility] Anusol-HC Anusol-HC No 1suppos BID Anusol-HC [place] 25 mg 25 mg itor(y/ 25 mg Communi rectal rectal ies) rectal ty [facility] 1 Insert 1 y Insert 1 l suppository suppository suppositor Clinics twice a day twice a day y twice a by rectal by rectal day by route for route for rectal 14 days. 14 days. route for 14 days. B12 B12 No B12 [place] Communi ty [facility] cholecalcif cholecalcif No 1capsul Q1W cholecalci [place] yarely yarely e(s) ferol Communi (vitamin (vitamin (vitamin ty D3) 1,250 D3) 1,250 D3) 1,250 Hospita mcg (50,000 mcg (50,000 mcg l unit) unit) (50,000 Clinics capsule capsule unit) Take 1 Take 1 capsule capsule capsule Take 1 every week every week capsule by oral by oral every week route. route. by oral route. diclofenac diclofenac No diclofenac [place] sodium 75 sodium 75 sodium 75 Communi mg mg mg ty tablet,hawa tablet,[place]awa tablet,del Hospita yed release yed release ayed l release Clinics diltiazem diltiazem No diltiazem [place] CD 120 mg CD 120 mg CD 120 mg Communi capsule,ext capsule,ext capsule,ex ty ended ended tended Hospita release 24 release 24 release 24 l hr TAKE 1 hr TAKE 1 hr TAKE 1 Clinics CAPSULE CAPSULE CAPSULE EVERY DAY EVERY DAY EVERY DAY famotidine famotidine No famotidine [place] 20 mg 20 mg 20 mg Communi tablet tablet tablet ty [facility] ibuprofen ibuprofen No ibuprofen [place] 600 mg 600 mg 600 mg Communi tablet tablet tablet ty [facility] levothyroxi levothyroxi No levothyrox [place] ne 25 mcg ne 25 mcg ine 25 mcg Communi tablet TAKE tablet TAKE tablet ty 1 TABLET 1 TABLET TAKE 1 Hospi ta EVERY DAY EVERY DAY TABLET l EVERY DAY Clinics losartan losartan No losartan [place] 100 100 100 Communi mg-hydrochl mg-hydrochl mg-hydroch ty orothiazide orothiazide [facility] 25 mg 25 mg de 25 mg l tablet TAKE tablet TAKE tablet Clinics 1 TABLET 1 TABLET TAKE 1 EVERY DAY EVERY DAY TABLET EVERY DAY ondansetron ondansetron No ondansetro [place] HCl 4 mg HCl 4 mg n HCl 4 mg C ommuni tablet tablet tablet ty [facility] pantoprazol pantoprazol No pantoprazo [place] e 40 mg e 40 mg le 40 mg Commu ni tablet,hawa tablet,hawa tablet,del ty yed release yed release ayed H [facility]spita TAKE 1 TAKE 1 release l TABLET TABLET TAKE 1 Clinics EVERY DAY EVERY DAY TABLET EVERY DAY potassium potassium No 1 Q1D potassium [place] chloride ER chloride ER chloride Communi 20 mEq 20 mEq ER 20 mEq ty tablet,exte tablet,exte tablet,ext Hospita nded nded ended l release release release Clinic s Take 1 Take 1 Take 1 tablet tablet tablet every day every day every day by oral by oral by oral route for route for route for 30 days. 30 days. 30 days. potassium potassium No potassium [place] chloride ER chloride ER chloride Communi 20 mEq 20 mEq ER 20 mEq ty tablet,exte tablet,exte tablet,ext Hospita nded nded ended l release(par release(par release(ky Clinics t/cryst) t/cryst) rt/cryst) PreserVisio PreserVisio No PreserVisi [place] n AREDS-2 n AREDS-2 on AREDS-2 [facility] turmeric turmeric No turmeric [place] [facility] B12 B12 No B12 [place] [facility] cholecalcif cholecalcif No cholecalci [place] yarely yarely ferol Communi (vitamin (vitamin (vitamin ty D3) 1,250 D3) 1,250 D3) 1,250 Hospita mcg (50,000 mcg (50,000 mcg l unit) unit) (50,000 Clinics capsule capsule unit) TAKE 1 TAKE 1 capsule CAPSULE CAPSULE TAKE 1 EVERY WEEK EVERY WEEK CAPSULE EVERY WEEK diltiazem diltiazem No diltiazem [place] CD 120 mg CD 120 mg CD 120 mg Communi capsule,ext capsule,ext capsule,ex ty ended ended tended Hospita release 24 release 24 release 24 l hr TAKE 1 hr TAKE 1 hr TAKE 1 Clinics CAPSULE CAPSULE CAPSULE EVERY DAY EVERY DAY EVERY DAY famotidine famotidine No famotidine [place] 20 mg 20 mg 20 mg Communi tablet tablet tablet [facility] ibuprofen ibuprofen No ibuprofen [place] 600 mg 600 mg 600 mg Communi tablet tablet tablet ty [facility] levothyroxi levothyroxi No levothyrox [place] ne 25 mcg ne 25 mcg ine 25 mcg Communi tablet TAKE tablet TAKE tablet ty 1 TABLET 1 TABLET TAKE 1 Hospi ta EVERY DAY EVERY DAY TABLET l EVERY DAY Clinics losartan losartan No losartan [place] 100 100 100 Communi mg-hydrochl mg-hydrochl mg-hydroch orothiazide orothiazide lorothiazi [facility] 25 mg 25 mg de 25 mg l tablet TAKE tablet TAKE tablet Clinics 1 TABLET 1 TABLET TAKE 1 EVERY DAY EVERY DAY TABLET EVERY DAY ondansetron ondansetron No ondansetro [place] HCl 4 mg HCl 4 mg n HCl 4 mg C ommuni tablet tablet tablet [facility] pantoprazol pantoprazol No pantoprazo [place] e 40 mg e 40 mg le 40 mg Commu ni tablet,hawa tablet,hawa tablet,del ty yed release yed release ayed [facility] TAKE 1 TAKE 1 release l TABLET TABLET TAKE 1 Clinics EVERY DAY EVERY DAY TABLET EVERY DAY potassium potassium No potassium [place] chloride ER chloride ER chloride Communi 20 mEq 20 mEq ER 20 mEq ty tablet,exte tablet,exte tablet,ext Hospita nded nded ended l release release release Clinic s TAKE ONE TAKE ONE TAKE ONE TABLET BY TABLET BY TABLET BY MOUTH DAILY MOUTH DAILY MOUTH DAILY PreserVisio PreserVisio No PreserVisi [place] n AREDS-2 n AREDS-2 on AREDS-2 [facility] turmeric turmeric No turmeric [place] [facility] B12 B12 No B12 [place] [facility] cholecalcif cholecalcif No cholecalci [place] yarely yarely ferol Communi (vitamin (vitamin (vitamin ty D3) 1,250 D3) 1,250 D3) 1,250 Hospita mcg (50,000 mcg (50,000 mcg l unit) unit) (50,000 Clinics capsule capsule unit) TAKE 1 TAKE 1 capsule CAPSULE CAPSULE TAKE 1 EVERY WEEK EVERY WEEK CAPSULE EVERY WEEK diltiazem diltiazem No diltiazem [place] CD 120 mg CD 120 mg CD 120 mg Communi capsule,ext capsule,ext capsule,ex ty ended ended tended Hospita release 24 release 24 release 24 l hr TAKE 1 hr TAKE 1 hr TAKE 1 Clinics CAPSULE CAPSULE CAPSULE EVERY DAY EVERY DAY EVERY DAY famotidine famotidine No famotidine [place] 20 mg 20 mg 20 mg Communi tablet tablet tablet ty [facility] ibuprofen ibuprofen No ibuprofen [place] 600 mg 600 mg 600 mg Communi tablet tablet tablet [facility] levothyroxi levothyroxi No 1 Q2D levothyrox [place] ne 25 mcg ne 25 mcg ine 25 mcg Communi tablet Take tablet Take tablet ty 1 tablet 1 tablet Take 1 Hospi ta every other every other tablet l day by oral day by oral every Clinics route. route. other day by oral route. losartan losartan No losartan [place] 100 100 100 Communi mg-hydrochl mg-hydrochl mg-hydroch ty orothiazide orothiazide [facility] 25 mg 25 mg de 25 mg l tablet TAKE tablet TAKE tablet Clinics 1 TABLET 1 TABLET TAKE 1 EVERY DAY EVERY DAY TABLET EVERY DAY ondansetron ondansetron No ondansetro [place] HCl 4 mg HCl 4 mg n HCl 4 mg C om[facility]i tablet tablet tablet [facility] pantoprazol pantoprazol No pantoprazo [place] e 40 mg e 40 mg le 40 mg Commu ni tablet,hawa tablet,hawa tablet,del ty yed release yed release ayed [facility] TAKE 1 TAKE 1 release l TABLET TABLET TAKE 1 Clinics EVERY DAY EVERY DAY TABLET EVERY DAY potassium potassium No potassium [place] chloride ER chloride ER chloride Communi 20 mEq 20 mEq ER 20 mEq ty tablet,exte tablet,exte tablet,ext Hospita nded nded ended l release release release Clinic s TAKE ONE TAKE ONE TAKE ONE TABLET BY TABLET BY TABLET BY MOUTH DAILY MOUTH DAILY MOUTH DAILY PreserVisio PreserVisio No PreserVisi [place] n AREDS-2 n AREDS-2 on AREDS-2 Communi [facility] turmeric turmeric No turmeric [place] [facility] B12 B12 No B12 [place] [facility] cholecalcif cholecalcif No cholecalci [place] yarely yarely ferol Communi (vitamin (vitamin (vitamin ty D3) 1,250 D3) 1,250 D3) 1,250 Hospita mcg (50,000 mcg (50,000 mcg l unit) unit) (50,000 Clinics capsule capsule unit) TAKE 1 TAKE 1 capsule CAPSULE CAPSULE TAKE 1 EVERY WEEK EVERY WEEK CAPSULE EVERY WEEK diltiazem diltiazem No diltiazem [place] CD 120 mg CD 120 mg CD 120 mg Communi capsule,ext capsule,ext capsule,ex ty ended ended tended Hospita release 24 release 24 release 24 l hr TAKE 1 hr TAKE 1 hr TAKE 1 Clinics CAPSULE CAPSULE CAPSULE EVERY DAY EVERY DAY EVERY DAY famotidine famotidine No famotidine [place] 20 mg 20 mg 20 mg Communi tablet tablet tablet ty [facility] ibuprofen ibuprofen No ibuprofen [place] 600 mg 600 mg 600 mg Communi tablet tablet tablet [facility] levothyroxi levothyroxi No levothyrox [place] ne 25 mcg ne 25 mcg ine 25 mcg Communi tablet Take tablet Take tablet ty 1 tablet 1 tablet Take 1 Hospi ta every other every other tablet l day by oral day by oral every Clinics route. route. other day by oral route. losartan losartan No losartan [place] 100 100 100 Communi mg-hydrochl mg-hydrochl mg-hydroch ty orothiazide orothiazide [facility] 25 mg 25 mg de 25 mg l tablet TAKE tablet TAKE tablet Clinics 1 TABLET 1 TABLET TAKE 1 EVERY DAY EVERY DAY TABLET EVERY DAY ondansetron ondansetron No ondansetro [place] HCl 4 mg HCl 4 mg n HCl 4 mg C om[facility]i tablet tablet tablet [facility] pantoprazol pantoprazol No pantoprazo [place] e 40 mg e 40 mg le 40 mg Commu ni tablet,hawa tablet,hawa tablet,del ty yed release yed release ayed [facility] TAKE 1 TAKE 1 release l TABLET TABLET TAKE 1 Clinics EVERY DAY EVERY DAY TABLET EVERY DAY potassium potassium No potassium [place] chloride ER chloride ER chloride Communi 20 mEq 20 mEq ER 20 mEq ty tablet,exte tablet,exte tablet,ext Hospita nded nded ended l release release release Clinic s TAKE ONE TAKE ONE TAKE ONE TABLET BY TABLET BY TABLET BY MOUTH DAILY MOUTH DAILY MOUTH DAILY PreserVisio PreserVisio No PreserVisi [place] n AREDS-2 n AREDS-2 on AREDS-2 Communi [facility] turmeric turmeric No turmeric [place] Communi ty [facility] B12 B12 No B12 [place] [facility] cholecalcif cholecalcif No cholecalci [place] yarely yarely ferol Communi (vitamin (vitamin (vitamin ty D3) 1,250 D3) 1,250 D3) 1,250 Hospita mcg (50,000 mcg (50,000 mcg l unit) unit) (50,000 Clinics capsule capsule unit) TAKE 1 TAKE 1 capsule CAPSULE CAPSULE TAKE 1 EVERY WEEK EVERY WEEK CAPSULE EVERY WEEK diltiazem diltiazem No diltiazem [place] CD 120 mg CD 120 mg CD 120 mg Communi capsule,ext capsule,ext capsule,ex ty ended ended tended Hospita release 24 release 24 release 24 l hr TAKE 1 hr TAKE 1 hr TAKE 1 Clinics CAPSULE CAPSULE CAPSULE EVERY DAY EVERY DAY EVERY DAY famotidine famotidine No famotidine [place] 20 mg 20 mg 20 mg Communi tablet tablet tablet [facility] ibuprofen ibuprofen No ibuprofen [place] 600 mg 600 mg 600 mg Communi tablet tablet tablet [facility] levothyroxi levothyroxi No levothyrox [place] ne 25 mcg ne 25 mcg ine 25 mcg Communi tablet Take tablet Take tablet ty 1 tablet 1 tablet Take 1 Hospi ta every other every other tablet l day by oral day by oral every Clinics route. route. other day by oral route. losartan losartan No losartan [place] 100 100 100 Communi mg-hydrochl mg-hydrochl mg-hydroch ty orothiazide orothiazide [facility] 25 mg 25 mg de 25 mg l tablet TAKE tablet TAKE tablet Clinics 1 TABLET 1 TABLET TAKE 1 EVERY DAY EVERY DAY TABLET EVERY DAY ondansetron ondansetron No ondansetro [place] HCl 4 mg HCl 4 mg n HCl 4 mg C [facility]i tablet tablet tablet [facility] pantoprazol pantoprazol No pantoprazo [place] e 40 mg e 40 mg le 40 mg Commu ni tablet,hawa tablet,hawa tablet,del ty yed release yed release ayed [facility] TAKE 1 TAKE 1 release l TABLET TABLET TAKE 1 Clinics EVERY DAY EVERY DAY TABLET EVERY DAY potassium potassium No potassium [place] chloride ER chloride ER chloride Communi 20 mEq 20 mEq ER 20 mEq ty tablet,exte tablet,exte tablet,ext Hospita nded nded ended l release release release Clinic s TAKE ONE TAKE ONE TAKE ONE TABLET BY TABLET BY TABLET BY MOUTH DAILY MOUTH DAILY MOUTH DAILY PreserVisio PreserVisio No PreserVisi [place] n AREDS-2 n AREDS-2 on AREDS-2 [facility] turmeric turmeric No turmeric [place] [facility] B12 B12 No B12 [place] [facility] cholecalcif cholecalcif No cholecalci [place] yarely yarely ferol [facility] (vitamin (vitamin (vitamin ty D3) 1,250 D3) 1,250 D3) 1,250 Hospita mcg (50,000 mcg (50,000 mcg l unit) unit) (50,000 Clinics capsule capsule unit) TAKE 1 TAKE 1 capsule CAPSULE CAPSULE TAKE 1 EVERY WEEK EVERY WEEK CAPSULE EVERY WEEK diltiazem diltiazem No diltiazem [place] CD 120 mg CD 120 mg CD 120 mg Communi capsule,ext capsule,ext capsule,ex ty ended ended tended Hospita release 24 release 24 release 24 l hr TAKE 1 hr TAKE 1 hr TAKE 1 Clinics CAPSULE CAPSULE CAPSULE EVERY DAY EVERY DAY EVERY DAY escitalopra escitalopra No escitalopr [place] m 10 mg m 10 mg am 10 mg Commu ni tablet Take tablet Take tablet ty 1 tablet 1 tablet Take 1 Hospi ta every day every day tablet l by oral by oral every day Clin ics route. route. by oral route. famotidine famotidine No famotidine [place] 20 mg 20 mg 20 mg Communi tablet tablet tablet [facility] ibuprofen ibuprofen No ibuprofen [place] 800 mg 800 mg 800 mg Communi tablet tablet tablet [facility] levothyroxi levothyroxi No levothyrox [place] ne 25 mcg ne 25 mcg ine 25 mcg Communi tablet Take tablet Take tablet ty 1 tablet 1 tablet Take 1 Hospi ta every other every other tablet l day by oral day by oral every Clinics route. route. other day by oral route. losartan losartan No losartan [place] 100 100 100 Communi mg-hydrochl mg-hydrochl mg-hydroch ty orothiazide orothiazide [facility]zi [facility] 25 mg 25 mg de 25 mg l tablet TAKE tablet TAKE tablet Clinics 1 TABLET 1 TABLET TAKE 1 EVERY DAY EVERY DAY TABLET EVERY DAY ondansetron ondansetron No ondansetro [place] HCl 4 mg HCl 4 mg n HCl 4 mg C [facility]i tablet tablet tablet ty [facility] pantoprazol pantoprazol No pantoprazo [place] e 40 mg e 40 mg le 40 mg Commu ni tablet,hawa tablet,hawa tablet,del ty yed release yed release ayed [facility] TAKE 1 TAKE 1 release l TABLET TABLET TAKE 1 Clinics EVERY DAY EVERY DAY TABLET EVERY DAY potassium potassium No potassium [place] chloride ER chloride ER chloride Communi 20 mEq 20 mEq ER 20 mEq ty tablet,exte tablet,exte tablet,ext Hospita nded nded ended l release release release Clinic s TAKE ONE TAKE ONE TAKE ONE TABLET BY TABLET BY TABLET BY MOUTH DAILY MOUTH DAILY MOUTH DAILY PreserVisio PreserVisio No PreserVisi [place] n AREDS-2 n AREDS-2 on AREDS-2 [facility] tramadol 50 tramadol 50 No tramadol [place] mg tablet mg tablet 50 mg Comm uni take one take one tablet ty tablet by tablet by take one H [facility]ita mouth every mouth every tablet by l 6 hrs for 6 hrs for mouth Clin ics pain. pain. every 6 hrs for pain. turmeric turmeric No turmeric [place] [facility] B12 B12 No B12 [place] [facility] cholecalcif cholecalcif No cholecalci [place] yarely yarely ferol Communi (vitamin (vitamin (vitamin ty D3) 1,250 D3) 1,250 D3) 1,250 Hospita mcg (50,000 mcg (50,000 mcg l unit) unit) (50,000 Clinics capsule capsule unit) TAKE 1 TAKE 1 capsule CAPSULE CAPSULE TAKE 1 EVERY WEEK EVERY WEEK CAPSULE EVERY WEEK diltiazem diltiazem No diltiazem [place] CD 120 mg CD 120 mg CD 120 mg Communi capsule,ext capsule,ext capsule,ex ty ended ended tended Hospita release 24 release 24 release 24 l hr TAKE 1 hr TAKE 1 hr TAKE 1 Clinics CAPSULE CAPSULE CAPSULE EVERY DAY EVERY DAY EVERY DAY escitalopra escitalopra No escitalopr [place] m 10 mg m 10 mg am 10 mg Commu ni tablet Take tablet Take tablet ty 1 tablet 1 tablet Take 1 Hospi ta every day every day tablet l by oral by oral every day Clin ics route. route. by oral route. famotidine famotidine No famotidine [place] 20 mg 20 mg 20 mg Communi tablet tablet tablet ty [facility] ibuprofen ibuprofen No ibuprofen [place] 800 mg 800 mg 800 mg Communi tablet tablet tablet ty [facility] Iron Iron No Iron [place] (ferrous (ferrous (ferrous Com maria r sulfate) sulfate) sulfate) ty BID with BID with BID with Hos doug food food food [facility] levothyroxi levothyroxi No levothyrox [place] ne 25 mcg ne 25 mcg ine 25 mcg Communi tablet TAKE tablet TAKE tablet ty 1 TABLET 1 TABLET TAKE 1 Hospi ta EVERY DAY EVERY DAY TABLET l EVERY DAY Clinics losartan losartan No losartan [place] 100 100 100 Communi mg-hydrochl mg-hydrochl mg-hydroch ty orothiazide orothiazide [facility]zi [facility] 25 mg 25 mg de 25 mg l tablet TAKE tablet TAKE tablet [facility] 1 TABLET 1 TABLET TAKE 1 EVERY DAY EVERY DAY TABLET EVERY DAY ondansetron ondansetron No ondansetro [place] HCl 4 mg HCl 4 mg n HCl 4 mg C om[facility]i tablet tablet tablet [facility] pantoprazol pantoprazol No pantoprazo [place] e 40 mg e 40 mg le 40 mg Commu ni tablet,hawa tablet,hawa tablet,del ty yed release yed release ayed [facility] TAKE 1 TAKE 1 release l TABLET TABLET TAKE 1 Clinics EVERY DAY EVERY DAY TABLET EVERY DAY potassium potassium No potassium [place] chloride ER chloride ER chloride Communi 20 mEq 20 mEq ER 20 mEq ty tablet,exte tablet,exte tablet,ext [facility]ospita nded nded ended l release release release Clinic s TAKE ONE TAKE ONE TAKE ONE TABLET BY TABLET BY TABLET BY MOUTH DAILY MOUTH DAILY MOUTH DAILY PreserVisio PreserVisio No PreserVisi [place] n AREDS-2 n AREDS-2 on AREDS-2 Communi ty [facility] simethicone simethicone No 1 TID simethicon [place] 125 mg 125 mg e 125 mg Communi chewable chewable chewable ty tablet Take tablet Take tablet [facility] 1 tablet 3 1 tablet 3 Take 1 l times a day times a day tablet 3 Clinics by oral by oral times a route as route as day by needed. needed. oral route as needed. tramadol 50 tramadol 50 No tramadol [place] mg tablet mg tablet 50 mg Comm uni take one take one tablet ty tablet by tablet by take one [facility] mouth every mouth every tablet by l 6 hrs for 6 hrs for mouth Clin ics pain. pain. every 6 hrs for pain. turmeric turmeric No turmeric [place] [facility] Clinics B Complex B Complex No B Complex [place] daily daily daily Communi ty [facility] Clinics B12 B12 No B12 [place] Communi ty [facility] cholecalcif cholecalcif No cholecalci [place] yarely yarely ferol Communi (vitamin (vitamin (vitamin ty D3) 1,250 D3) 1,250 D3) 1,250 Hospita mcg (50,000 mcg (50,000 mcg l unit) unit) (50,000 Clinics capsule capsule unit) TAKE 1 TAKE 1 capsule CAPSULE CAPSULE TAKE 1 EVERY WEEK EVERY WEEK CAPSULE EVERY WEEK dicyclomine dicyclomine No dicyclomin [place] 10 mg 10 mg e 10 mg Communi capsule capsule capsule ty take 1 ab 4 take 1 ab 4 take 1 ab Hospita times daily times daily 4 times l as needed as needed daily as C linics needed escitalopra escitalopra No escitalopr [place] m 10 mg m 10 mg am 10 mg Commu ni tablet Take tablet Take tablet ty 1 tablet 1 tablet Take 1 Hospi ta every day every day tablet l by oral by oral every day Clin ics route. route. by oral route. ibuprofen ibuprofen No ibuprofen [place] 800 mg 800 mg 800 mg Communi tablet tablet tablet ty [facility] Iron Iron No Iron [place] (ferrous (ferrous (ferrous Com maria r sulfate) sulfate) sulfate) ty BID with BID with BID with [facility] food food food l Clinics levothyroxi levothyroxi No levothyrox [place] ne 25 mcg ne 25 mcg ine 25 mcg Communi tablet TAKE tablet TAKE tablet ty 1 TABLET 1 TABLET TAKE 1 Hospi ta EVERY DAY EVERY DAY TABLET l EVERY DAY Clinics losartan losartan No losartan [place] 100 100 100 Communi mg-hydrochl mg-hydrochl mg-hydroch ty orothiazide orothiazide [facility]zi [facility] 25 mg 25 mg de 25 mg l tablet TAKE tablet TAKE tablet Clinics 1 TABLET 1 TABLET TAKE 1 EVERY DAY EVERY DAY TABLET EVERY DAY metronidazo metronidazo No metronidaz [place] le 500 mg le 500 mg ole 500 mg Communi tablet tablet tablet [facility] Neuriva Neuriva No Neuriva [place] Plus 1 Plus 1 Plus 1 Communi daily daily daily [facility] Tatum 3 Tatum 3 No Tatum 3 [place] daily daily daily Communi [facility] pantoprazol pantoprazol No pantoprazo [place] e 40 mg e 40 mg le 40 mg Commu ni tablet,hawa tablet,hawa tablet,del ty yed release yed release ayed [facility] TAKE 1 TAKE 1 release l TABLET TABLET TAKE 1 Clinics EVERY DAY EVERY DAY TABLET EVERY DAY potassium potassium No potassium [place] chloride ER chloride ER chloride [facility] 20 mEq 20 mEq ER 20 mEq ty tablet,exte tablet,exte tablet,ext [facility] nded nded ended l release release release Clinic s TAKE ONE TAKE ONE TAKE ONE TABLET BY TABLET BY TABLET BY MOUTH DAILY MOUTH DAILY MOUTH DAILY PreserVisio PreserVisio No PreserVisi [place] n AREDS-2 n AREDS-2 on AREDS-2 [facility] simethicone simethicone No 1 TID simethicon [place] 125 mg 125 mg e 125 mg Commun chewable chewable chewable ty tablet Take tablet Take tablet [facility] 1 tablet 3 1 tablet 3 Take 1 l times a day times a day tablet 3 Clinics by oral by oral times a route as route as day by needed. needed. oral route as needed. turmeric turmeric No turmeric [place] [facility]i [facility] B Complex B Complex No B Complex [place] daily daily daily Communi [facility] B12 B12 No B12 [place] [facility] cholecalcif cholecalcif No cholecalci [place] ayrely yarely ferol [facility] (vitamin (vitamin (vitamin ty D3) 1,250 D3) 1,250 D3) 1,250 [facility] mcg (50,000 mcg (50,000 mcg l unit) unit) (50,000 Clinics capsule capsule unit) TAKE 1 TAKE 1 capsule CAPSULE CAPSULE TAKE 1 EVERY WEEK EVERY WEEK CAPSULE EVERY WEEK Cipro 500 Cipro 500 No 1 Q12H Cipro 500 [place] mg tablet mg tablet mg tablet Communi Take 1 Take 1 Take 1 ty tablet tablet tablet Hospita every 12 every 12 every 12 l hours by hours by hours by Cli nics oral route. oral route. oral route. dicyclomine dicyclomine No dicyclomin [place] 10 mg 10 mg e 10 mg Communi capsule capsule capsule ty take 1 ab 4 take 1 ab 4 take 1 ab Hospita times daily times daily 4 times l as needed as needed daily as C linics needed escitalopra escitalopra No escitalopr [place] m 10 mg m 10 mg am 10 mg Commu ni tablet Take tablet Take tablet ty 1 tablet 1 tablet Take 1 Hospi ta every day every day tablet l by oral by oral every day Clin ics route. route. by oral route. ibuprofen ibuprofen No ibuprofen [place] 800 mg 800 mg 800 mg [facility] tablet [facility] Iron Iron No Iron [place] (ferrous (ferrous (ferrous Com maria r sulfate) sulfate) sulfate) ty BID with BID with BID with [facility] food food food l Clinics levothyroxi levothyroxi No levothyrox [place] ne 25 mcg ne 25 mcg ine 25 mcg Communi tablet TAKE tablet TAKE tablet ty 1 TABLET 1 TABLET TAKE 1 Hospi ta EVERY DAY EVERY DAY TABLET l EVERY DAY Clinics losartan losartan No losartan [place] 100 100 100 Communi mg-hydrochl mg-hydrochl mg-hydroch ty orothiazide orothiazide [facility]iazi [facility] 25 mg 25 mg de 25 mg l tablet TAKE tablet TAKE tablet Clinics 1 TABLET 1 TABLET TAKE 1 EVERY DAY EVERY DAY TABLET EVERY DAY metronidazo metronidazo No 1 Q8H metronidaz [place] le 500 mg le 500 mg ole 500 mg Communi tablet Take tablet Take tablet ty 1 tablet 1 tablet Take 1 Hospi ta every 8 every 8 tablet l hours by hours by every 8 Clin ics oral route. oral route. hours by oral route. Neuriva Neuriva No Neuriva [place] Plus 1 Plus 1 Plus 1 Communi daily daily daily ty [facility] Clinics Tatum 3 Tatum 3 No Tatum 3 [place] daily daily daily Communi ty [facility] Clinics pantoprazol pantoprazol No pantoprazo [place] e 40 mg e 40 mg le 40 mg Commu ni tablet,hawa tablet,hawa tablet,del ty yed release yed release ayed [facility] TAKE 1 TAKE 1 release l TABLET TABLET TAKE 1 Clinics EVERY DAY EVERY DAY TABLET EVERY DAY potassium potassium No potassium [place] chloride ER chloride ER chloride Communi 20 mEq 20 mEq ER 20 mEq ty tablet,exte tablet,exte tablet,ext Hospita nded nded ended l release release release Clinic s TAKE ONE TAKE ONE TAKE ONE TABLET BY TABLET BY TABLET BY MOUTH DAILY MOUTH DAILY MOUTH DAILY PreserVisio PreserVisio No PreserVisi [place] n AREDS-2 n AREDS-2 on AREDS-2 Communi [facility] simethicone simethicone No 1 TID simethicon [place] 125 mg 125 mg e 125 mg Communi chewable chewable chewable ty tablet Take tablet Take tablet Hospita 1 tablet 3 1 tablet 3 Take 1 l times a day times a day tablet 3 Clinics by oral by oral times a route as route as day by needed. needed. oral route as needed. turmeric turmeric No turmeric [place] [facility] B Complex B Complex No B Complex [place] daily daily daily Communi ty [facility] B12 B12 No B12 [place] [facility] cholecalcif cholecalcif No cholecalci [place] yarely yarely ferol Communi (vitamin (vitamin (vitamin ty D3) 1,250 D3) 1,250 D3) 1,250 Hospita mcg (50,000 mcg (50,000 mcg l unit) unit) (50,000 Clinics capsule capsule unit) TAKE 1 TAKE 1 capsule CAPSULE CAPSULE TAKE 1 EVERY WEEK EVERY WEEK CAPSULE EVERY WEEK dicyclomine dicyclomine No dicyclomin [place] 10 mg 10 mg e 10 mg Communi capsule capsule capsule ty take 1 ab 4 take 1 ab 4 take 1 ab Hospita times daily times daily 4 times l as needed as needed daily as C linics needed escitalopra escitalopra No escitalopr [place] m 10 mg m 10 mg am 10 mg Commu ni tablet Take tablet Take tablet ty 1 tablet 1 tablet Take 1 Hospi ta every day every day tablet l by oral by oral every day Clin ics route. route. by oral route. ibuprofen ibuprofen No ibuprofen [place] 800 mg 800 mg 800 mg Communi tablet tablet tablet [facility] Iron Iron No Iron [place] (ferrous (ferrous (ferrous Com maria r sulfate) sulfate) sulfate) ty BID with BID with BID with [facility] food food food l Clinics levothyroxi levothyroxi No levothyrox [place] ne 25 mcg ne 25 mcg ine 25 mcg Communi tablet TAKE tablet TAKE tablet ty 1 TABLET 1 TABLET TAKE 1 Hospi ta EVERY DAY EVERY DAY TABLET l EVERY DAY Clinics losartan losartan No losartan [place] 100 100 100 Communi mg-hydrochl mg-hydrochl mg-hydroch ty orothiazide orothiazide lorothiazi Hospita 25 mg 25 mg de 25 mg l tablet TAKE tablet TAKE tablet Clinics 1 TABLET 1 TABLET TAKE 1 EVERY DAY EVERY DAY TABLET EVERY DAY metronidazo metronidazo No metronidaz [place] le 500 mg le 500 mg ole 500 mg Communi tablet Take tablet Take tablet ty 1 tablet 1 tablet Take 1 Hospi ta every 8 every 8 tablet l hours by hours by every 8 Clin ics oral route. oral route. hours by oral route. Neuriva Neuriva No Neuriva [place] Plus 1 Plus 1 Plus 1 Communi daily daily daily ty [facility] Tatum 3 Tatum 3 No Tatum 3 [place] daily daily daily Communi ty [facility] pantoprazol pantoprazol No pantoprazo [place] e 40 mg e 40 mg le 40 mg Commu ni tablet,hawa tablet,hawa tablet,del ty yed release yed release ayed H ospita TAKE 1 TAKE 1 release l TABLET TABLET TAKE 1 Clinics EVERY DAY EVERY DAY TABLET EVERY DAY potassium potassium No potassium [place] chloride ER chloride ER chloride Communi 20 mEq 20 mEq ER 20 mEq ty tablet,exte tablet,exte tablet,ext Hospita nded nded ended l release release release Clinic s TAKE ONE TAKE ONE TAKE ONE TABLET BY TABLET BY TABLET BY MOUTH DAILY MOUTH DAILY MOUTH DAILY PreserVisio PreserVisio No PreserVisi [place] n AREDS-2 n AREDS-2 on AREDS-2 Communi ty [facility] simethicone simethicone No 1 TID simethicon [place] 125 mg 125 mg e 125 mg Communi chewable chewable chewable ty tablet Take tablet Take tablet Hospita 1 tablet 3 1 tablet 3 Take 1 l times a day times a day tablet 3 Clinics by oral by oral times a route as route as day by needed. needed. oral route as needed. turmeric turmeric No turmeric [place] Communi ty [facility] B Complex B Complex No B Complex [place] daily daily daily Communi ty [facility] B12 B12 No B12 [place] Communi ty [facility] cholecalcif cholecalcif No cholecalci [place] yarely yarely ferol Communi (vitamin (vitamin (vitamin ty D3) 1,250 D3) 1,250 D3) 1,250 Hospita mcg (50,000 mcg (50,000 mcg l unit) unit) (50,000 Clinics capsule capsule unit) TAKE 1 TAKE 1 capsule CAPSULE CAPSULE TAKE 1 EVERY WEEK EVERY WEEK CAPSULE EVERY WEEK dicyclomine dicyclomine No dicyclomin [place] 10 mg 10 mg e 10 mg Communi capsule capsule capsule ty take 1 ab 4 take 1 ab 4 take 1 ab Hospita times daily times daily 4 times l as needed as needed daily as C linics needed escitalopra escitalopra No escitalopr [place] m 10 mg m 10 mg am 10 mg Commu ni tablet Take tablet Take tablet ty 1 tablet 1 tablet Take 1 Hospi ta every day every day tablet l by oral by oral every day Clin ics route. route. by oral route. ibuprofen ibuprofen No ibuprofen [place] 800 mg 800 mg 800 mg Communi tablet tablet tablet ty [facility] Iron Iron No Iron [place] (ferrous (ferrous (ferrous Com maria r sulfate) sulfate) sulfate) ty BID with BID with BID with [facility] food food food l Clinics levothyroxi levothyroxi No levothyrox [place] ne 25 mcg ne 25 mcg ine 25 mcg Communi tablet TAKE tablet TAKE tablet ty 1 TABLET 1 TABLET TAKE 1 Hospi ta EVERY DAY EVERY DAY TABLET l EVERY DAY Clinics losartan losartan No losartan [place] 100 100 100 Communi mg-hydrochl mg-hydrochl mg-hydroch ty orothiazide orothiazide lorothiazi Hospita 25 mg 25 mg de 25 mg l tablet TAKE tablet TAKE tablet Clinics 1 TABLET 1 TABLET TAKE 1 EVERY DAY EVERY DAY TABLET EVERY DAY metronidazo metronidazo No metronidaz [place] le 500 mg le 500 mg ole 500 mg Communi tablet Take tablet Take tablet ty 1 tablet 1 tablet Take 1 Hospi ta every 8 every 8 tablet l hours by hours by every 8 Clin ics oral route. oral route. hours by oral route. Neuriva Neuriva No Neuriva [place] Plus 1 Plus 1 Plus 1 Communi daily daily daily ty [facility] Tatum 3 Tatum 3 No Tatum 3 [place] daily daily daily Communi ty [facility] pantoprazol pantoprazol No pantoprazo [place] e 40 mg e 40 mg le 40 mg Commu ni tablet,hawa tablet,hawa tablet,del ty yed release yed release ayed H [facility]spita TAKE 1 TAKE 1 release l TABLET TABLET TAKE 1 Clinics EVERY DAY EVERY DAY TABLET EVERY DAY potassium potassium No potassium [place] chloride ER chloride ER chloride Communi 20 mEq 20 mEq ER 20 mEq ty tablet,exte tablet,exte tablet,ext Hospita nded nded ended l release release release Clinic s TAKE ONE TAKE ONE TAKE ONE TABLET BY TABLET BY TABLET BY MOUTH DAILY MOUTH DAILY MOUTH DAILY PreserVisio PreserVisio No PreserVisi [place] n AREDS-2 n AREDS-2 on AREDS-2 Communi [facility] simethicone simethicone No 1 TID simethicon [place] 125 mg 125 mg e 125 mg Communi chewable chewable chewable ty tablet Take tablet Take tablet Hospita 1 tablet 3 1 tablet 3 Take 1 l times a day times a day tablet 3 Clinics by oral by oral times a route as route as day by needed. needed. oral route as needed. turmeric turmeric No turmeric [place] Communi [facility] amoxicillin amoxicillin No amoxicilli [place] [phone] n 875 Communi mg-potassiu mg-potassiu mg-potassi ty m m [facility] clavulanate clavulanate clavulanat l 125 mg 125 mg e 125 mg Clinics tablet tablet tablet cholecalcif cholecalcif No cholecalci [place] yarely yarely ferol Communi (vitamin (vitamin (vitamin ty D3) 1,250 D3) 1,250 D3) 1,250 Hospita mcg (50,000 mcg (50,000 mcg l unit) unit) (50,000 Clinics capsule capsule unit) TAKE 1 TAKE 1 capsule CAPSULE CAPSULE TAKE 1 EVERY WEEK EVERY WEEK CAPSULE EVERY WEEK famotidine famotidine No 1 Q1D famotidine [place] 20 mg 20 mg 20 mg Communi tablet Take tablet Take tablet ty 1 tablet 1 tablet Take 1 Hospi ta every day every day tablet l by oral by oral every day Clin ics route for route for by oral 30 days. 30 days. route for 30 days. FeroSul 325 FeroSul 325 No FeroSul [place] mg (65 mg mg (65 mg 325 mg (65 Communi iron) iron) mg iron) ty tablet tablet tablet [facility] Iron Iron No Iron [place] (ferrous (ferrous (ferrous Com maria r sulfate) sulfate) sulfate) ty BID with BID with BID with [facility] food food food [facility] levothyroxi levothyroxi No levothyrox [place] ne 25 mcg ne 25 mcg ine 25 mcg Communi tablet tablet tablet ty [facility] Macrobid Macrobid No 1capsul Q12H Macrobid [place] 100 mg 100 mg e(s) 100 mg Communi capsule capsule capsule ty Take 1 Take 1 Take 1 Hospita capsule capsule capsule l every 12 every 12 every 12 Cli nics hours by hours by hours by oral route. oral route. oral route. metoprolol metoprolol No 1 Q1D metoprolol [place] tartrate 25 tartrate 25 tartrate Communi mg tablet mg tablet 25 mg ty Take 1 Take 1 tablet Hospita tablet tablet Take 1 l every day every day tablet Cli nics by oral by oral every day route for route for by oral 30 days. 30 days. route for 30 days. voriconazol voriconazol No 1 Q1D voriconazo [place] e 200 mg e 200 mg le 200 mg Co mmuni tablet Take tablet Take tablet ty 1 tablet 1 tablet Take 1 Hospi ta every day every day tablet l by oral by oral every day Clin ics route. route. by oral route. benzonatate benzonatate No benzonatat [place] 100 mg 100 mg e 100 mg Communi capsule capsule capsule ty [facility] cholecalcif cholecalcif No 1capsul Q1W cholecalci [place] yarely yarely e(s) ferol Communi (vitamin (vitamin (vitamin ty D3) 1,250 D3) 1,250 D3) 1,250 Hospita mcg (50,000 mcg (50,000 mcg l unit) unit) (50,000 Clinics capsule capsule unit) Take 1 Take 1 capsule capsule capsule Take 1 every week every week capsule by oral by oral every week route for route for by oral 90 days. 90 days. route for 90 days. levothyroxi levothyroxi No levothyrox [place] ne 25 mcg ne 25 mcg ine 25 mcg Communi tablet Take tablet Take tablet ty 1 tablet 1 tablet Take 1 Hospi ta every day every day tablet l by oral by oral every day Clin ics route for route for by oral 90 days. 90 days. route for 90 days. losartan losartan No 1 Q1D losartan [place] 100 mg 100 mg 100 mg Communi tablet Take tablet Take tablet ty 1 tablet 1 tablet Take 1 Hospi ta every day every day tablet l by oral by oral every day Clin ics route for route for by oral 30 days. 30 days. route for 30 days. potassium potassium No potassium [place] chloride ER chloride ER chloride Communi 10 mEq 10 mEq ER 10 mEq ty tablet,exte tablet,exte tablet,ext Hospita nded nded ended l release release release Clinic s Take 1 Take 1 Take 1 tablet tablet tablet every day every day every day by oral by oral by oral route for route for route for 90 days. 90 days. 90 days. benzonatate benzonatate No benzonatat [place] 100 mg 100 mg e 100 mg Communi capsule capsule capsule ty Hospita l Clinics cholecalcif cholecalcif No 1capsul Q1W cholecalci [place] yarely yarely e(s) ferol Communi (vitamin (vitamin (vitamin ty D3) 1,250 D3) 1,250 D3) 1,250 Hospita mcg (50,000 mcg (50,000 mcg l unit) unit) (50,000 Clinics capsule capsule unit) Take 1 Take 1 capsule capsule capsule Take 1 every week every week capsule by oral by oral every week route for route for by oral 90 days. 90 days. route for 90 days. diltiazem diltiazem No 1capsul Q1D diltiazem [place] CD 180 mg CD 180 mg e(s) CD 180 mg Communi capsule,ext capsule,ext capsule,ex ty ended ended tended Hospita release 24 release 24 release 24 l hr Take 1 hr Take 1 hr Take 1 Clinics capsule capsule capsule every day every day every day by oral by oral by oral route. route. route. levothyroxi levothyroxi No levothyrox [place] ne 25 mcg ne 25 mcg ine 25 mcg Communi tablet Take tablet Take tablet ty 1 tablet 1 tablet Take 1 Hospi ta every day every day tablet l by oral by oral every day Clin ics route for route for by oral 90 days. 90 days. route for 90 days. losartan losartan No losartan [place] 100 mg 100 mg 100 mg [facility]i tablet Take tablet Take tablet ty 1 tablet 1 tablet Take 1 Hospi ta every day every day tablet l by oral by oral every day Clin ics route for route for by oral 30 days. 30 days. route for 30 days. Macrobid Macrobid No 1capsul BID Macrobid [place] 100 mg 100 mg e(s) 100 mg Communi capsule capsule capsule ty Take 1 Take 1 Take 1 Hospita capsule capsule capsule l twice a day twice a day twice a Clinics by oral by oral day by route for route for oral route 10 days. 10 days. for 10 days. pantoprazol pantoprazol No pantoprazo [place] e 40 mg e 40 mg le 40 mg Commu ni tablet,hawa tablet,hawa tablet,del ty yed release yed release ayed H ospita TAKE 1 TAKE 1 release l TABLET TABLET TAKE 1 Clinics EVERY DAY EVERY DAY TABLET EVERY DAY potassium potassium No potassium [place] chloride ER chloride ER chloride Communi 10 mEq 10 mEq ER 10 mEq ty tablet,exte tablet,exte tablet,ext Hospita nded nded ended l release release release Clinic s Take 1 Take 1 Take 1 tablet tablet tablet every day every day every day by oral by oral by oral route for route for route for 90 days. 90 days. 90 days. Immunizations Ordered Immunization Filled Immunization Date Status Commen ts Source Name Name zoster, unspecified zoster, unspecified 2019-10-30 Completed [place] [facility] formulation 00:00:[facility] zoster, unspecified zoster, unspecified 2019-10-30 Completed [place] [facility] formulation formulation 00:00:00 [facility] Cli [facility] zoster, unspecified zoster, unspecified 2019-10-30 Completed [place] [facility] formulation formulation 00:00:00 [facility] Cli nics zoster, unspecified zoster, unspecified 2019-10-30 Completed [place] [facility] formulation formulation 00:00:00 [facility] Cli nics zoster, unspecified zoster, unspecified 2019-10-30 Completed [place] [facility] formulation formulation 00:00:00 [facility] Cli nics zoster, unspecified zoster, unspecified 2019-10-30 Completed [place] [facility] formulation formulation 00:00:00 Hospital Cli nics zoster, unspecified zoster, unspecified 2019-10-30 Completed [place] [facility] formulation formulation 00:00:00 [facility] Cli nics zoster, unspecified zoster, unspecified 2019-10-30 Completed [place] [facility] formulation formulation 00:00:00 [facility] Cli nics zoster, unspecified zoster, unspecified 2019-10-30 Completed [place] [facility] formulation formulation 00:00:00 Hospital Cli nics zoster, unspecified zoster, unspecified 2019-10-30 Completed [place] [facility] formulation formulation 00:00:00 Hospital Cli nics zoster, unspecified zoster, unspecified 2019-10-30 Completed [place] [facility] formulation formulation 00:00:00 Hospital Cli nics zoster, unspecified zoster, unspecified 2019-10-30 Completed [place] [facility] formulation formulation 00:00:00 Hospital Cli nics zoster, unspecified zoster, unspecified 2019-10-30 Completed [place] [facility] formulation formulation 00:00:00 Hospital Cli nics zoster, unspecified zoster, unspecified 2019-10-30 Completed [place] [facility] formulation formulation 00:00:00 Hospital Cli nics zoster, unspecified zoster, unspecified 2019-10-30 Completed [place] [facility] formulation formulation 00:00:00 Hospital Cli nics zoster, unspecified zoster, unspecified 2019-10-30 Completed [place] [facility] formulation formulation 00:00:00 Hospital Cli nics zoster, unspecified zoster, unspecified 2019-10-30 Completed [place] [facility] formulation formulation 00:00:00 Hospital Cli nics zoster, unspecified zoster, unspecified 2019-10-30 Completed [place] [facility] formulation formulation 00:00:00 Hospital Cli nics zoster, unspecified zoster, unspecified 2019-10-30 Completed [place] [facility] formulation formulation 00:00:00 Hospital Cli nics Vital Signs Vital Name Observation Time Observation Value Comments Source BP Systolic 2022-04-08 00:00:00 170 mm[Hg] [facility] Body Weight 2022-04-08 00:00:00 2371.2 [oz_av] [facility] s BP Diastolic 2022-04-08 00:00:00 90 mm[Hg] [facility] Height 2022-04-08 00:00:00 63 [in_i] [facility] BMI (Body Mass 2022-04-08 00:00:00 26.3 kg/m2 [facility] s BP Diastolic 2022-04-01 00:00:00 80 mm[Hg] [facility] Height 2022-04-01 00:00:00 63 [in_i] [facility] s BMI (Body Mass 2022-04-01 00:00:00 25.8 kg/m2 [facility]) [facility] s BP Systolic 2022-04-01 00:00:00 150 mm[Hg] [facility] Body Weight 2022-04-01 00:00:00 2329.6 [oz_av] [facility] s Systolic blood 2022-03-26 17:03:00 165 mm[Hg] [facility] pressure Medicine Diastolic blood 2022-03-26 17:03:00 88 mm[Hg] [facility] pressure Medicine Heart rate 2022-03-26 17:03:00 64 /min [facility] Body temperature 2022-03-26 17:03:00 36.17 [facility] [place] Body height 2022-03-26 17:03:00 160 cm [facility] Body weight 2022-03-26 17:03:00 62.959 kg [facility] BMI 2022-03-26 17:03:00 24.59 kg/m2 [facility] Oxygen saturation in 2022-03-26 17:03:00 97 /min [facility] Arterial blood by Medicine Pulse oximetry Systolic blood 2022-03-26 20:01:00 170 mm[Hg] [facility] pressure Medicine Diastolic blood 2022-03-26 20:01:00 75 mm[Hg] [facility] pressure Medicine Heart rate 2022-03-26 20:01:00 59 /min [facility] Body temperature 2022-03-26 20:01:00 36.17 [facility] [place] [facility] Body height 2022-03-26 20:01:00 160 cm [facility] Body weight 2022-03-26 20:01:00 62.596 kg [facility] BMI 2022-03-26 20:01:00 24.45 kg/m2 [facility] WEIGHT 2022-03-09 08:58:00 66 kg WEIGHT 2022-03-05 06:00:00 74.2 kg WEIGHT 2022-03-04 06:26:00 64.5 kg WEIGHT 2022-03-02 02:40:00 64.638 kg HEIGHT 2022-03-01 14:11:00 160 cm WEIGHT 2022-03-01 14:11:00 44.453 kg WEIGHT 2022-03-09 08:58:00 66 kg WEIGHT 2022-03-05 06:00:00 74.2 kg WEIGHT 2022-03-04 06:26:00 64.5 kg WEIGHT 2022-03-02 02:40:00 64.638 kg HEIGHT 2022-03-01 14:11:00 160 cm WEIGHT 2022-03-01 14:11:00 44.453 kg WEIGHT 2022-03-09 08:58:00 66 kg WEIGHT 2022-03-05 06:00:00 74.2 kg WEIGHT 2022-03-04 06:26:00 64.5 kg WEIGHT 2022-03-02 02:40:00 64.638 kg HEIGHT 2022-03-01 14:11:00 160 cm WEIGHT 2022-03-01 14:11:00 44.453 kg BP Diastolic 2022-02-04 00:00:00 70 mm[Hg] [facility] s Height 2022-02-04 00:00:00 63 [in_i] [facility] s BMI (Body Mass 2022-02-04 00:00:00 26.4 kg/m2 [facility] s BP Systolic 2022-02-04 00:00:00 144 mm[Hg] [facility] Body Weight 2022-02-04 00:00:00 2384 [oz_av] [facility] s WEIGHT 2022-01-17 04:00:00 72.8 kg HEIGHT 2022-01-15 20:00:00 160 cm WEIGHT 2022-01-15 20:00:00 69.4 kg WEIGHT 2022-01-17 04:00:00 72.8 kg HEIGHT 2022-01-15 20:00:00 160 cm WEIGHT 2022-01-15 20:00:00 69.4 kg WEIGHT 2022-01-17 04:00:00 72.8 kg HEIGHT 2022-01-15 20:00:00 160 cm WEIGHT 2022-01-15 20:00:00 69.4 kg BP Diastolic 2021-12-24 00:00:00 70 mm[Hg] [facility] Height 2021-12-24 00:00:00 63 [in_i] [facility] BMI (Body Mass 2021-12-24 00:00:00 28.4 kg/m2 [facility] s BP Systolic 2021-12-24 00:00:00 140 mm[Hg] [facility] Body Weight 2021-12-24 00:00:00 2569.6 [oz_av] [facility] s BP Diastolic 2021-11-12 00:00:00 70 mm[Hg] [facility] Height 2021-11-12 00:00:00 63 [in_i] [facility] BMI (Body Mass 2021-11-12 00:00:00 29.9 kg/m2 [facility] s BP Systolic 2021-11-12 00:00:00 130 mm[Hg] [facility] Body Weight 2021-11-12 00:00:00 2704 [oz_av] [facility] BP Diastolic 2021-08-12 00:00:00 72 mm[Hg] [facility] Height 2021-08-12 00:00:00 63 [in_i] [facility] BMI (Body Mass 2021-08-12 00:00:00 31.5 kg/m2 [facility] s BP Systolic 2021-08-12 00:00:00 110 mm[Hg] [facility] Body Weight 2021-08-12 00:00:00 2848 [oz_av] [facility] s BP Diastolic 2021-08-05 00:00:00 70 mm[Hg] [facility] Height 2021-08-05 00:00:00 63 [in_i] [facility] BMI (Body Mass 2021-08-05 00:00:00 31.6 kg/m2 [facility] s BP Systolic 2021-08-05 00:00:00 115 mm[Hg] [facility] Body Weight 2021-08-05 00:00:00 2857.6 [oz_av] [facility] s BP Diastolic 2021-07-15 00:00:00 78 mm[Hg] [facility] Height 2021-07-15 00:00:00 63 [in_i] [facility] s BMI (Body Mass 2021-07-15 00:00:00 31.6 kg/m2 [facility] s BP Systolic 2021-07-15 00:00:00 120 mm[Hg] [facility] Body Weight 2021-07-15 00:00:00 2854.4 [oz_av] [facility] BP Diastolic 2021-07-03 00:00:00 74 mm[Hg] [facility] Height 2021-07-03 00:00:00 63 [in_i] [facility] BMI (Body Mass 2021-07-03 00:00:00 31.6 kg/m2 [facility]) [facility] BP Systolic 2021-07-03 00:00:00 145 mm[Hg] [facility] Body Weight 2021-07-03 00:00:00 178.4 [lb_av] [facility] BP Diastolic 2021-06-24 00:00:00 70 mm[Hg] [facility] Height 2021-06-24 00:00:00 63 [in_i] [facility] s BMI (Body Mass 2021-06-24 00:00:00 32.1 kg/m2 [facility] s BP Systolic 2021-06-24 00:00:00 120 mm[Hg] [facility] Body Weight 2021-06-24 00:00:00 2896 [oz_av] [facility] s BP Diastolic 2021-06-02 00:00:00 75 mm[Hg] [facility] Height 2021-06-02 00:00:00 63 [in_i] [facility] BMI (Body Mass 2021-06-02 00:00:00 32.2 kg/m2 [facility] Index) [facility] BP Systolic 2021-06-02 00:00:00 130 mm[Hg] [facility] Body Weight 2021-06-02 00:00:00 182 [lb_av] [facility] BP Diastolic 2021-04-09 00:00:00 80 mm[Hg] [facility] Height 2021-04-09 00:00:00 63 [in_i] [facility] BMI (Body Mass 2021-04-09 00:00:00 32.5 kg/m2 [facility] s BP Systolic 2021-04-09 00:00:00 130 mm[Hg] [facility] Body Weight 2021-04-09 00:00:00 2934.4 [oz_av] [facility] s BP Diastolic 2021-02-13 00:00:00 80 mm[Hg] [facility] Height 2021-02-13 00:00:00 63 [in_i] [facility] BMI (Body Mass 2021-02-13 00:00:00 32.7 kg/m2 [facility]) [facility] s BP Systolic 2021-02-13 00:00:00 115 mm[Hg] [facility] Body Weight 2021-02-13 00:00:00 2956.8 [oz_av] [facility] s BP Diastolic 2021-01-23 00:00:00 70 mm[Hg] [facility] Height 2021-01-23 00:00:00 63 [in_i] [facility] BP Systolic 2021-01-23 00:00:00 130 mm[Hg] [facility] s BP Diastolic 2020-12-23 00:00:00 70 mm[Hg] [facility] Height 2020-12-23 00:00:00 63 [in_i] [facility] BMI (Body Mass 2020-12-23 00:00:00 32.7 kg/m2 [facility]) [facility] s BP Systolic 2020-12-23 00:00:00 121 mm[Hg] [facility] Body Weight 2020-12-23 00:00:00 2956.8 [oz_av] [facility] s BP Diastolic 2020-08-29 00:00:00 62 mm[Hg] [facility] Height 2020-08-29 00:00:00 64 [in_i] [facility] BMI (Body Mass 2020-08-29 00:00:00 31.9 kg/m2 [facility]) [facility] s BP Systolic 2020-08-29 00:00:00 130 mm[Hg] [facility] Body Weight 2020-08-29 00:00:00 2972.8 [oz_av] [facility] BP Diastolic 2020-06-19 00:00:00 82 mm[Hg] [facility] Height 2020-06-19 00:00:00 64 [in_i] [facility] BMI (Body Mass 2020-06-19 00:00:00 33 kg/m2 [facility] s BP Systolic 2020-06-19 00:00:00 126 mm[Hg] [facility] Body Weight 2020-06-19 00:00:00 3075.2 [oz_av] [facility] s Systolic blood 2020-03-07 14:53:00 130 mm[Hg] [facility] Diastolic blood 2020-03-07 14:53:00 77 mm[Hg] [facility] Heart rate 2020-03-07 14:53:00 91 /min [facility] of [facility] Body height 2020-03-07 14:50:00 162.6 cm [facility] Body weight 2020-03-07 14:50:00 88.905 kg [facility] BMI 2020-03-07 14:50:00 33.64 kg/m2 [facility] Systolic blood 2020-03-07 14:53:00 130 mm[Hg] [facility]iver [facility]ity of pressure [facility] Diastolic blood 2020-03-07 14:53:00 77 mm[Hg] Unive rsity of pressure [facility] Heart rate 2020-03-07 14:53:00 91 /min [facility] Body height 2020-03-07 14:50:00 162.6 cm [facility] Body weight 2020-03-07 14:50:00 88.905 kg [facility] BMI 2020-03-07 14:50:00 33.64 kg/m2 [facility] Systolic blood 2020-01-22 19:52:00 134 mm[Hg] Univer sity of pressure [facility] Diastolic blood 2020-01-22 19:52:00 76 mm[Hg] Unive rsity of pressure [facility] Heart rate 2020-01-22 19:52:00 73 /min [facility] Body height 2020-01-22 19:52:00 160 cm [facility] Body weight 2020-01-22 19:52:00 84.823 kg [facility] BMI 2020-01-22 19:52:00 33.13 kg/m2 [facility] Systolic blood 2022-03-09 11:33:00 166 mm[Hg] [facility] Diastolic blood 2022-03-09 11:33:00 88 mm[Hg] [facility] Heart rate 2022-03-09 11:33:00 90 /min [facility] Respiratory rate 2022-03-09 11:33:00 15 /min [facility] Oxygen saturation in 2022-03-09 11:33:00 100 /min [facility] Arterial blood by Medical Ce [facility]ter Pulse oximetry Body temperature 2022-03-09 08:58:00 36.5 Rhonda [facility] Body weight 2022-03-09 08:58:00 66 kg [facility] BMI 2022-03-09 08:58:00 25.77 kg/m2 [facility] Body height 2022-03-01 14:11:00 160 cm [facility] Systolic blood 2022-02-16 15:21:00 140 mm[Hg] Method [facility] pressure Diastolic blood 2022-02-16 15:21:00 80 mm[Hg] [facility] pressure Body temperature 2022-02-16 15:21:00 36 Rhonda [facility] Body weight 2022-02-16 15:21:00 68.493 kg [facility] BMI 2022-02-16 15:21:00 26.75 kg/m2 [facility] Heart rate 2022-02-10 15:35:00 77 /min [facility] Respiratory rate 2022-02-10 15:35:00 16 /min [facility] Oxygen saturation in 2022-02-10 15:35:00 96 /min [facility] Arterial blood by Pulse oximetry Body height 2022-02-10 13:18:00 160 cm [facility] Systolic blood 2021-11-27 16:12:00 124 mm[Hg] Method [facility] pressure Diastolic blood 2021-11-27 16:12:00 76 mm[Hg] [facility] pressure Heart rate 2021-11-27 16:12:00 105 /min [facility] Body temperature 2021-11-27 16:12:00 36.61 Rhonda [facility] Body height 2021-11-27 16:12:00 160 cm [facility] Body weight 2021-11-27 16:12:00 75.751 kg [facility] BMI 2021-11-27 16:12:00 29.58 kg/m2 [facility] Oxygen saturation in 2021-11-27 16:12:00 100 /min [facility] Arterial blood by Pulse oximetry Respiratory rate 2021-11-24 15:00:00 19 /min [facility] Procedures Procedure Date / Time Performing Source Performed Clinician CT, head, w/o contrast 2022-04-01 [facility] 00:[facility]:00 [facility] COMPREHENSIVE METABOLIC PANEL 2022-03-26 Jessica Mock Ba [facility] 18:28:00 [facility] C-REACTIVE PROTEIN 2022-03-26 Emili daquan [facility] 18:28:00 [facility] CBC W/AUTO DIFF WITH PLATELETS 2022-03-26 [facility] 18:28:00 [facility] SEDIMENTATION RATE MODIFIED 2022-03-26 Jessica Mock [facility] 18:28:00 [facility] XR CHEST 1 VIEW PORTABLE / BEDSIDE 2022-03-[address] [facility] 12:00:00 [facility] POCT-GLUCOSE METER 2022-03-[address] [facility] 11:53:00 [facility] XR CHEST 1 VIEW PORTABLE / BEDSIDE 2022-03-[address] [facility] 07:14:00 [facility] POCT-GLUCOSE METER 2022-03-[address] [facility] 07:07:00 [facility] CBC W/PLT COUNT & AUTO 2022-03-[address] [facility] DIFFERENTIAL 05:17:00 [facility] BASIC METABOLIC PANEL 2022-03-09 Glowacki, Isela [facility] 05:17:00 [facility] MAGNESIUM 2022-03-09 Glowacki, Isela [facility] 05:17:00 [facility] PHOSPHORUS 2022-03-09 Glowackpenny, Isela [facility] 05:17:00 [facility] CBC W/PLT COUNT & AUTO 2022-03-09 Glonicolle, Isela [facility] DIFFERENTIAL 05:17:00 [facility] POCT-GLUCOSE METER 2022-03-08 Royce, Kiya [facility] 21:32:00 [facility] HISTOPLASMA ANTIGEN, URINE 2022-03-[address] [facility] 18:26:00 [facility] POCT-GLUCOSE METER 2022-03-08 Royce, Kiya [facility] 16:35:00 [facility] CRYPTOCOCCAL ANTIGEN 2022-03-[address] [facility] 15:26:00 [facility] POCT-GLUCOSE METER 2022-03-[address] [facility] 11:08:[address] [facility] [address] BRAIN WITHOUT IV CONTRAST 2022-03-[address] [facility] 10:03:00 [facility] XR CHEST 1 VIEW PORTABLE / BEDSIDE 2022-03-08 Dorys [address] hryn [facility] 06:37:00 [facility] CBC W/PLT COUNT & AUTO 2022-03-08 Glonicolle, Isela [facility] DIFFERENTIAL 04:13:00 [facility] BASIC METABOLIC PANEL 2022-03-08 Glonicolle, Isela [facility] 04:13:00 [facility] MAGNESIUM 2022-03-08 Glowacki, Isela [facility] 04:13:00 [facility] PHOSPHORUS 2022-03-08 Glowacki, Isela [facility] 04:13:00 [facility] CBC W/PLT COUNT & AUTO 2022-03-08 Glonicolle, Isela [facility] DIFFERENTIAL 04:13:00 [facility] PREPARE RBC 2022-03-[address] [facility] 23:54:00 [facility] XR CHEST 1 VIEW PORTABLE / BEDSIDE 2022-03-[address] [facility] 07:06:00 [facility] CBC W/PLT COUNT & AUTO 2022-03-[address] [facility] DIFFERENTIAL 05:31:00 [facility] BASIC METABOLIC PANEL 2022-03-[address] [facility] 05:31:00 [facility] MAGNESIUM 2022-03-[address] [facility] 05:31:00 [facility] PHOSPHORUS 2022-03-[address] [facility] 05:31:00 [facility] CBC W/PLT COUNT & AUTO 2022-03-[address] [facility] DIFFER[facility] 05:31:00 [facility] POCT-GLUCOSE METER 2022-03-[address] [facility] 00:02:00 [facility] PREPARE RBC 2022-03-[address] [facility] 23:55:00 [facility] CBC (HEMOGRAM ONLY) 2022-03-[address] [facility] 16:45:00 [facility] POCT-GLUCOSE METER 2022-03-[address] [facility] 12:22:00 [facility] TRANSFUSE LEUKO-REDUCED RED BLOOD 2022-03-06 Nott, Roxanne e [facility] CELLS 11:01:00 [facility] POCT-GLUCOSE METER 2022-03-[address] [facility] 08:10:00 [facility] TYPE AND SCREEN, AUTOMATED 2022-03-06 Nott, [facility] 08:10:00 [facility] CBC W/PLT COUNT & AUTO 2022-03-[address] [facility] DIFFERENTIAL 04:12:00 [facility] BASIC METABOLIC PANEL 2022-03-[address] [facility] 04:12:00 [facility] MAGNESIUM 2022-03-[address] [facility] 04:12:00 [facility] PHOSPHORUS 2022-03-[address] [facility] 04:12:00 [facility] CBC W/PLT COUNT & AUTO 2022-03-[address] [facility] DI[facility] 04:12:00 [facility] XR CHEST 1 VIEW PORTABLE / BEDSIDE 2022-03-[address] [facility] 03:50:00 [facility] POCT-GLUCOSE METER 2022-03-05 Royce, Kiya [facility] 22:46:00 [facility] POCT-GLUCOSE METER 2022-03-05 Royce, Kiya [facility] 17:02:00 [facility] POCT-GLUCOSE METER 2022-03-05 Royce, Kiya [facility] 11:04:00 [facility] POCT-GLUCOSE METER 2022-03-05 Royce, Kiya [facility] 08:05:00 [facility] CBC W/PLT COUNT & AUTO 2022-03-[address] [facility] DIFFERENTIAL 03:34:00 [facility] CBC W/PLT COUNT & AUTO 2022-03-[address] [facility] 03:34:00 [facility] XR CHEST 1 VIEW PORTABLE / BEDSIDE 2022-03-[address] [facility] 03:22:00 [facility] BASIC METABOLIC PANEL 2022-03-[address] [facility] [facility] 01:02:00 [facility] MAGNESIUM 2022-03-[address] [facility] 01:02:00 [facility] PHOSPHORUS 2022-03-05 Glonicolle, Isela [facility] 01:02:00 [facility] PREPARE RBC 2022-03-04 Royce, Kiya [facility] 23:55:00 [facility] POCT-GLUCOSE METER 2022-03-04 Royce, Kiya [facility] 21:58:00 [facility] POCT-GLUCOSE METER 2022-03-04 Royce, Kiya [facility] 16:00:00 [facility] POCT-GLUCOSE METER 2022-03-[address] [facility] 13:30:00 [facility] POCT-GLUCOSE METER 2022-03-04 Karina, Sung [facility] 06:30:00 [facility] BLOOD GAS, ARTERIAL 2022-03-[address] [facility] 05:01:00 [facility] POCT-GLUCOSE METER 2022-03-04 TriciaDedrick, Sung [facility] 03:43:00 [facility] BLOOD GAS, ARTERIAL 2022-03-[address] [facility] 02:27:00 [facility] CBC W/PLT COUNT & AUTO 2022-03-[address] [facility] 02:24:00 [facility] BASIC METABOLIC PANEL 2022-03-[address] [facility] 02:24:00 [facility] MAGNESIUM 2022-03-[address] [facility] 02:24:00 [facility] PHOSPHORUS 2022-03-[address] [facility] 02:24:00 [facility] LACTIC ACID, ARTERIAL 2022-03-[address] [facility] 02:24:00 [facility] THROMBOELASTOGRAPH (TEG) 2022-03-[address] [facility] 02:24:00 [facility] CBC W/PLT COUNT & AUTO 2022-03-04 Karina, Maurice [facility] 02:24:00 In [facility] (CELLAVISION MANUAL DIFF) 2022-03-04 MelchorLetyMaurice gramajo [facility] 02:24:00 [facility] XR CHEST 1 VIEW PORTABLE / BEDSIDE 2022-03-[address] [facility] 02:09:00 [facility] TRANSFUSE LEUKO-REDUCED RED BLOOD 2022-03-[address] [facility] CELLS 23:50:00 [facility] RRL CRITICAL LABS 2022-03-[address] [facility] (ABG,NA,K,H&H,GLUCOSE) 23:39:09 Medical C enter CALCIUM, IONIZED 2022-03-[address] [facility] 23:39:09 [facility] BLOOD GAS, ARTERIAL 2022-03-03 Penelope, Laron [facility] 23:39:09 [facility] SODIUM NA-STAT LAB 2022-03-[address] [facility] 23:39:09 [facility] POTASSIUM-STAT LAB 2022-03-[address] [facility] 23:39:09 [facility] GLUCOSE-STAT LAB 2022-03-03 Penelope, [facility]on [facility] 23:39:09 [facility] HGB/HCT (H&H) - STAT LAB 2022-03-[address] [facility] 23:39:09 [facility] TRANSFUSE LEUKO-REDUCED RED BLOOD 2022-03-03 Laron [facility]rete [facility] 23:39:00 [facility] FUNGUS CULTURE + SMEAR 2022-03-03 RoyceKiya jackson [facility] 23:11:00 [facility] SURGICALLY OBTAINED CULTURE + GRAM 2022-03-03 [facility], [facility]ya [facility] STAIN 23:11:00 [facility] ANAEROBIC CULTURE 2022-03-03 [facility], Kiya [facility] 23:11:00 [facility] AFB CULTURE + SMEAR (NON-SPUTUM) 2022-03-[address] [facility] 23:11:00 [facility] SPIN/CONCENTRATION CHARGE 2022-03-[address] [facility] 23:11:00 [facility] RRL CRITICAL LABS 2022-03-[address] [facility] (ABG,NA,K,H&H,GLUCOSE) 22:43:18 [facility] enter BLOOD GAS, ARTERIAL 2022-03-[address] [facility] 22:43:18 [facility] SODIUM NA-STAT LAB 2022-03-[address] [facility] 22:43:18 [facility] POTASSIUM-STAT LAB 2022-03-[address] [facility] 22:43:18 [facility] GLUCOSE-STAT LAB 2022-03-[address] [facility] 22:43:18 [facility] HGB/HCT (H&H) - STAT LAB 2022-03-[address] [facility] 22:43:18 [facility] FUNGUS CULTURE + SMEAR 2022-03-[address] [facility] 21:49:00 [facility] SURGICALLY OBTAINED CULTURE + GRAM 2022-03-03 Royce, Kiya [facility] STAIN 21:49:00 [facility] ANAEROBIC CULTURE 2022-03-03 Royce, Kiya [facility] 21:49:00 [facility] AFB CULTURE + SMEAR (NON-SPUTUM) 2022-03-03 Royce, Kiya [facility] 21:49:00 [facility] FUNGUS CULTURE + SMEAR 2022-03-[address] [facility] 21:43:00 [facility] SURGICALLY OBTAINED CULTURE + GRAM 2022-03-03 Royce, [facility] 21:43:00 [facility] ANAEROBIC CULTURE 2022-03-03 Royce, [facility]ya [facility] 21:43:00 [facility] AFB CULTURE + SMEAR (NON-SPUTUM) 2022-03-[address] [facility] 21:43:00 [facility] FUNGUS CULTURE + SMEAR 2022-03-[address] [facility] 21:28:00 [facility] BODY FLUID CULTURE + GRAM STAIN 2022-03-[address] [facility] 21:28:00 [facility] ANAEROBIC CULTURE 2022-03-03 Royce, Kiya [facility] 21:28:00 [facility] AFB CULTURE + SMEAR (NON-SPUTUM) 2022-03-[address] [facility] 21:28:00 [facility] SPIN/CONCENTRATION CHARGE 2022-03-[address] [facility] 21:28:00 [facility] CYTOLOGY 2022-03-03 Royce, Kiya [facility] 21:19:00 [facility] CYTOLOGY REQUEST 2022-03-03 Royce, Kiya [facility] 21:19:00 [facility] TISSUE EXAM 2022-03-[address] [facility] 20:33:00 [facility] THORACOSCOPY (VATS) 2022-03-03 Royce, Kiya [facility] 19:33:00 [facility] LAPAROSCOPY, DIAGNOSTIC 2022-03-03 Royce, Kiya [facility] 19:33:00 [facility] ESOPHAGOGASTRODUODENOSCOPY 2022-03-03 Royce, [facility] (ESOPHAGOGASTRODUODENOSCOPY) 19:33:00 [facility] BRONCHOSCOPY 2022-03-03 Royce, Kiya [facility] 19:33:00 [facility] THORACOTOMY 2022-03-03 Royce, Kiya [facility] 19:33:00 [facility] CBC W/PLT COUNT & AUTO 2022-03-[address] [facility] DIFFERENTIAL 04:19:00 [facility] BASIC METABOLIC PANEL 2022-03-[address] [facility] 04:19:00 [facility] MAGNESIUM 2022-03-[address] [facility] 04:19:00 [facility] HEPATIC FUNCTION PANEL 2022-03-03 Tricia-Lety, [facility]ung [facility] 04:19:00 [facility] CBC W/PLT COUNT & AUTO 2022-03-03 Tricia-Lety, [facility]ung [facility] 04:19:00 In [facility] PT/APTT 2022-03-[address] [facility] 10:57:00 [facility] PREALBUMIN 2022-03-[address] [facility] 04:13:00 [facility] CBC (HEMOGRAM ONLY) 2022-03-[address] [facility] 04:13:00 [facility] COMPREHENSIVE METABOLIC PANEL 2022-03-[address] [facility] 04:13:00 [facility] ABORH, MANUAL 2022-03-[address] [facility] 04:13:00 [facility] TYPE AND SCREEN, AUTOMATED 2022-03-[address] [facility] 00:53:00 [facility] SARS-COV2/RT-PCR ([facility]) 2022-03-[address] [facility] 21:09:[address] [facility] [address] CHEST WITH IV CONTRAST 2022-03-[address] [facility] 17:27:00 [facility] WOUND CULTURE + GRAM STAIN 2022-03-01 [facility]ino [facility] 15:40:00 [facility] CBC W/PLT COUNT & AUTO 2022-03-[address] [facility] DIFFERENTIAL 15:38:00 [facility] COMPREHENSIVE METABOLIC PANEL 2022-03-01 Toña Roberts [facility] 15:38:00 [facility] LACTIC ACID, VENOUS 2022-03-[address] [facility] 15:38:00 [facility] CBC W/PLT COUNT & AUTO 2022-03-01 Toña Roberts [facility] DIFFERENTIAL 15:38:00 [facility] XR CHEST 2 VIEWS 2022-03-01 Toña Roberts [facility] 14:59:00 [facility] FIBRINOGEN 2022-02-16 Sloan Gomes 16:57:00 [facility] ALPHA FETOPROTEIN 2022-02-16 Sloan Gomes 16:57:00 [facility] CARCINOEMBRYONIC ANTIGEN (CEA) 2022-02-16 Sloan Gomes 16:57:00 [facility] INTERLEUKIN 2 RECEPTOR 2022-02-16 Sloan Gomes t 16:57:00 [facility] TRIGLYCERIDES 2022-02-16 Sloan Gomes 16:57:00 [facility] VITAMIN B12 LEVEL 2022-02-16 Sloan Gomes 16:57:00 [facility] FOLATE LEVEL 2022-02-16 Sloan Gomes 16:57:00 [facility] FERRITIN LEVEL 2022-02-16 Sloan Gomes 16:57:00 [facility] COMPREHENSIVE METABOLIC PANEL 2022-02-16 Sloan Gomes 16:57:00 [facility] CBC WITH PLATELET AND DIFFERENTIAL 2022-02-16 Luann Gomes 16:57:00 [facility] LDH 2022-02-16 Sloan Gomes 16:57:00 [facility] CANCER ANTIGEN 125 2022-02-16 Sloan Gomes 16:57:00 [facility] ESTIMATED GFR 2022-02-16 Sloan Gomes 16:57:00 [facility] SURGICAL PATHOLOGY REQUEST 2022-02-10 Sloan Gomes 16:18:00 [facility] CYTOLOGY (NON-GYNECOLOGICAL) 2022-02-10 Sloan Gomes thodist REQUEST 16:15:00 [facility] US LIVER BIOPSY 2022-02-10 Sloan Gomes 15:00:00 [facility] ANAEROBIC CULTURE 2022-02-10 Sloan Gomes 14:15:00 [facility] FUNGUS CULTURE 2022-02-10 Sloan Gomes 14:15:00 [facility] AEROBIC CULTURE 2022-02-10 Sloan Gomes 14:15:00 [facility] AFB CULTURE 2022-02-10 Sloan Gomes 14:15:00 [facility] FUNGUS SMEAR 2022-02-10 Sloan Gomes 14:15:00 [facility] AFB STAIN 2022-02-10 Sloan Gomes 14:15:00 [facility] CBC WITH PLATELET AND DIFFERENTIAL 2022-02-06 Luann Gomes 20:21:00 [facility] COMPREHENSIVE METABOLIC PANEL 2022-02-06 Sloan Gomes 20:21:00 [facility] PROTHROMBIN TIME WITH INR 2022-02-06 Sloan Gomes dist 20:21:00 [facility] PARTIAL THROMBOPLASTIN TIME (PTT) 2022-02-06 Rose Gomes 20:21:00 [facility] ESTIMATED GFR 2022-02-06 Sloan Gomes 20:21:00 [facility] MANUAL DIFFERENTIAL 2022-02-06 Sloan Gomes 20:21:00 [facility] CYTOLOGY 2022-01-[address] [facility] 09:41:00 [facility] Reza-Ahmed CBC W/PLT COUNT & AUTO 2022-01-[address] [facility] DIFFERENTIAL 03:56:00 [facility] COMPREHENSIVE METABOLIC PANEL 2022-01-24 Ibeche, [facility]ar [facility] 03:56:00 [facility] CBC W/PLT COUNT & AUTO 2022-01-24 Ibeche, Bashar [facility]FFER[facility] 03:56:00 [facility] 2D ECHO W/ DOPPLER (CW/PW/COLOR) 2022-01-[address] [facility] 15:01:42 [facility] CBC W/PLT COUNT & AUTO 2022-01-23 Ibeche, Bashar [facility] 04:20:00 [facility] COMPREHENSIVE METABOLIC PANEL 2022-01-23 Ibeche, [facility] 04:20:00 [facility] CBC W/PLT COUNT & AUTO 2022-01-23 Ibeche, Bashar [facility] 04:20:00 [facility] CBC W/PLT COUNT & AUTO 2022-01-22 Ibeche, Bashar [facility] 04:27:00 [facility] COMPREHENSIVE METABOLIC PANEL 2022-01-22 Ibeche, [facility] 04:27:00 [facility] CBC W/PLT COUNT & AUTO 2022-01-22 Ibeche, Bashar [facility] 04:27:[address] [facility] [address] CHEST WITH IV CONTRAST 2022-01-[address] [facility] 20:43:00 [facility] CBC W/PLT COUNT & AUTO 2022-01-21 Ibeche, Bashar [facility] 04:20:00 [facility] COMPREHENSIVE METABOLIC PANEL 2022-01-21 Ibeche, [facility] 04:20:00 [facility] CBC W/PLT COUNT & AUTO 2022-01-21 Ibeche, Bashar [facility] 04:20:00 [facility] XR CHEST 1 VIEW PORTABLE / BEDSIDE 2022-01-21 Ibeche, Basha r [facility] 00:10:00 [facility] CBC W/PLT COUNT & AUTO 2022-01-20 Ibeche, Bashar [facility] 03:46:00 [facility] COMPREHENSIVE METABOLIC PANEL 2022-01-20 Ibeche, [facility] 03:46:00 [facility] CBC W/PLT COUNT & AUTO 2022-01-20 Ibeche, Bashar [facility] 03:46:00 [facility] XR CHEST 1 VIEW PORTABLE / BEDSIDE 2022-01-20 Curtis Huizar r [facility] 00:05:00 [facility] Insertion of Pleural Tube Drain 2022-01-20 [place] [facility] 00:00:00 [facility] COMPREHENSIVE METABOLIC PANEL 2022-01-19 Ibeche, Bashar [facility] 03:35:00 [facility] CBC W/PLT COUNT & AUTO 2022-01-19 Ibeche, Ligia [facility] 03:35:00 [facility] CBC W/PLT COUNT & AUTO 2022-01-19 Ibeche, Ligia [facility] 03:35:00 [facility] XR CHEST 1 VIEW PORTABLE / BEDSIDE 2022-01-19 Curtis Huizar r [facility] 00:05:00 [facility] CBC W/PLT COUNT & AUTO 2022-01-18 Ibeche, Ligia [facility] 04:58:00 [facility] COMPREHENSIVE METABOLIC PANEL 2022-01-18 Ibeche, Ligia [facility] 04:58:00 [facility] IRON, TIBC, % SAT. (WITHOUT 2022-01-18 Ibeche, Bashar [facility] FERRITIN) 04:58:00 [facility] VITAMIN B12 2022-01-18 Ibeche, Bashar [facility] 04:58:00 [facility] CBC W/PLT COUNT & AUTO 2022-01-18 Ibeche, Ligia [facility] 04:58:00 [facility] CBC W/PLT COUNT & AUTO 2022-01-17 Ibeche, Ligia [facility] 04:47:00 [facility] COMPREHENSIVE METABOLIC PANEL 2022-01-17 Ibeche, Rileyhar [facility] 04:47:00 [facility] CBC W/PLT COUNT & AUTO 2022-01-17 Ibeche, Bashar [facility] 04:47:00 [facility] XR CHEST 1 VIEW PORTABLE / BEDSIDE 2022-01-[address] [facility] 01:12:00 [facility] XR CHEST 1 VIEW PORTABLE / BEDSIDE 2022-01-[address] [facility] 15:30:00 [facility] THORACOSCOPY (VATS),LUNG BIOPSY 2022-01-15 [facility], Cecil [facility] 13:33:00 [facility] URINALYSIS W/ MICROSCOPIC 2022-01-15 [facility] 10:40:00 [facility] XR CHEST 1 VIEW PORTABLE / BEDSIDE 2022-01-15 [facility], Zane gao [facility] 09:05:00 [facility] COVID ANTIGEN 2022-01-15 [facility] [place] [facility] 08[facility]54:00 [facility] PT/APTT 2022-01-15 [facility] [place] [facility] 08:53:00 [facility] TISSUE EXAM 2022-01-15 [facility] [place] [facility] 08:00:00 [facility] CBC W/PLT COUNT & AUTO 2022-01-15 [facility] [facility] DIFFERENTIAL 05:45:00 [facility] BASIC METABOLIC PANEL 2022-01-15 [facility], [facility] 05:45:00 [facility] CBC W/PLT COUNT & AUTO 2022-01-15 [facility] DIFFERENTIAL 05:45:00 [facility] Limited Thoracotomy 2022-01-15 [place] [facility] 00[facility] POTASSIUM 2022-01-14 [facility] 10:30:00 [facility] CBC W/PLT COUNT & AUTO 2022-01-14 [facility] DIFFER[facility] 03:30:00 [facility] COMPREHENSIVE METABOLIC PANEL 2022-01-14 [facility] 03:30:00 [facility] CBC W/PLT COUNT & AUTO 2022-01-14 [facility] DIFFERENTIAL 03:30:00 [facility] CBC W/PLT COUNT & AUTO 2022-01-[address] [facility] DIFFERENTIAL 03:42:00 [facility] BASIC METABOLIC PANEL 2022-01-[address] [facility] 03:42:00 [facility] CBC W/PLT COUNT & AUTO 2022-01-[address] [facility] DIFFERENTIAL 03:42:00 [facility] URINALYSIS W/ MICROSCOPIC 2022-01-12 [facility] 15:45:00 [facility] XR CHEST 1 VIEW PORTABLE / BEDSIDE 2022-01-12 [facility], Zane sima [facility] 14:20:00 [facility] SARS-COV2/RT-PCR ([facility]) 2022-01-12 [facility], Zane sima [facility] 13:00:00 [facility] PT/APTT 2022-01-12 [facility] 13:00:00 [facility] ABORH, MANUAL 2022-01-[address] [facility] 13:00:00 [facility] Center TYPE AND SCREEN, AUTOMATED 2022-01-12 [facility] 10:33:00 [facility] BASIC METABOLIC PANEL 2022-01-11 [facility] 05:10:00 [facility] CBC (HEMOGRAM ONLY) 2022-01-11 [facility] 05:10:00 [facility] BASIC METABOLIC PANEL 2022-01-[address] [facility] 03:55:00 [facility] CBC W/PLT COUNT & AUTO 2022-01-[address] [facility] 03:55:00 [facility] CBC W/PLT COUNT & AUTO 2022-01-[address] [facility] 03:55:00 [facility] XR CHEST 1 VIEW PORTABLE / BEDSIDE 2022-01-[address] [facility] 00:08:00 [facility] VANCOMYCIN LEVEL, RANDOM 2022-01-[address] [facility] 22:30:[address] [facility] [address] DRAINAGE WITH CHEST TUBE 2022-01-09 Ibeche, Bashar [facility] INSERTION 11:30:00 [facility] Center PT/APTT 2022-01-09 Alam, Ariffin [facility] 03:30:00 [facility] BASIC METABOLIC PANEL 2022-01-09 Alam, Ariffin [facility] 03:30:00 [facility] Center CBC W/PLT COUNT & AUTO 2022-01-09 Alam, Ariledain [facility] DIFFER[facility] 03:30:00 [facility] Center CBC W/PLT COUNT & AUTO 2022-01-[address] [facility] 03:30:00 [facility] Center CT BRAIN WITHOUT IV CONTRAST 2022-01-[address] [facility] 10:48:00 [facility] Center WHITE BLOOD CELL COUNT 2022-01-[address] [facility] 04:05:00 [facility] BASIC METABOLIC PANEL 2022-01-[address] [facility] 04:05:00 Medical Center FERRITIN 2022-01-[address] [facility] 04:05:00 [facility] Center XR CHEST 1 VIEW PORTABLE / BEDSIDE 2022-01-[address] [facility] 00:50:00 [facility] Center XR CHEST 1 VIEW PORTABLE / BEDSIDE 2022-01-[address] [facility] 09:50:00 [facility] US THORACENTESIS 2022-01-[address] [facility] 09:36:00 [facility] Center BODY FLUID CELL COUNT WITH 2022-01-07 [facility], [facility] 09:31:00 [facility] LIPID PANEL 2022-01-07 Shamsee, [facility] 05:20:00 [facility] TSH 2022-01-07 Shamsee, [facility] 05:20:00 [facility] T4, FREE 2022-01-07 Shamsee, [facility] 05:20:00 [facility] TROPONIN I 2022-01-07 Shamsee, [facility] 05:20:00 [facility] COMPREHENSIVE METABOLIC PANEL 2022-01-07 Shamsee[facility] 05:20:00 [facility] PHOSPHORUS 2022-01-07 Shamsee, [facility] 05:20:00 [facility] MAGNESIUM 2022-01-07 Shamsee, [facility] 05:20:00 [facility] B-TYPE NATRIURETIC FACTOR (BNP) 2022-01-07 Shamsee, [facility] 05:20:00 [facility] CBC W/PLT COUNT & AUTO 2022-01-[address] [facility] DIFFERENTIAL 05:20:00 [facility] PROTHROMBIN TIME/INR 2022-01-[address] [facility] [facility] 05:20:00 [facility] CBC W/PLT COUNT & AUTO 2022-01-[address] [facility] DIFFERENTIAL 05:20:00 [facility] (MANUAL DIFFERENTIAL) 2022-01-[address] [facility] 05:20:00 [facility] XR CHEST 1 VIEW PORTABLE / BEDSIDE 2022-01-[address] [facility] 01:10:00 [facility] Thoracentesis 2022-01-07 [facility] 00:00:00 Hospital Clinics TROPONIN I 2022-01-06 Ibeche, Bashar [facility] 23:14:00 [facility] Center PERMANENT LAB REPORT - SCAN 2021-12-28 Provider, Default [facility] EKG-SCANNED 2021-12-28 Provider, Default [facility] 00:00:00 Scanning [facility] Center MAMMO, screening, digital, 2021-12-24 Critical access hospital bilateral 00:00:[address] SKULL BASE TO MID THIGH 2021-12-18 Sloan Gomes 17:26:47 [facility] POC GLUCOSE 2021-12-18 Sloan Gomes 15:43:00 [facility] ESOPHAGOGASTRODUODENOSCOPY (EGD) 2021-11-24 Curtis Pabon 13:46:00 [facility] COLONOSCOPY 2021-11-24 Curtis Pabon 13:46:00 [facility] US UPPER GI TRACT, ENDOSCOPIC 2021-11-24 Curtis Pabon Me [facility]odist 13:46:00 [facility] COVID-19 QUALITATIVE RT-PCR 2021-11-21 Curtis Pabon odist 16:30:00 [facility] Colonoscopy 2021-11-17 [facility] 00:00:00 Hospital Clinics SURGICAL PATHOLOGY REQUEST 2021-10-07 Jayda Montilla [facility] dist 18:09:00 [facility] SURGICAL PATHOLOGY REQUEST 2021-10-07 Jayda Montillao dist 17:09:[address] [facility] [address] NEEDLE BIOPSY NO CONTRAST 2021-10-07 Jayda Montillaist 16:59:06 [facility] PARTIAL THROMBOPLASTIN TIME (PTT) 2021-10-02 Jayda Montilla 15:12:00 [facility] PROTHROMBIN TIME WITH INR 2021-10-02 Jayda Montilla ist 15:12:00 [facility] BASIC METABOLIC PANEL 2021-10-02 Jayda Montilla 15:12:00 [facility] HC COMPLETE BLD COUNT W/AUTO DIFF 2021-10-02 Jayda Montilla 15:12:00 [facility] ESTIMATED GFR 2021-10-02 Jayda Montilla 15:12:[address] [facility] [address] CHEST ABD PEL EXTERNAL STUDY 2021-08-12 Jayda Montilla 15:32:[address] [facility] [address], chest, w/wo contrast 2021-08-07 [facility] 00:00:00 Hospital Clin[facility] XR, chest, 2 view 2021-08-05 [facility], abdomen + pelvis, w/wo 2021-08-05 Critical access hospital contrast 00:00:00 Hospital Clinics MAMMO, screening, digital, 2020-12-23 Critical access hospital bilateral 00:00:00 Hospital Clinics DSU PRE-OP 2020-03-07 [facility] of 06:01:00 Unassigned, No [facility] MR KNEE LEFT WO CONTRAST 2020-02-14 Precious Fox rsity of 14:51:14 [facility] REFERRAL- REQUEST/RESPONSE 2020-02-07 [facility] 06:01:00 Unassigned, No [facility] XR KNEE 3 VW LEFT 2020-01-[address] f 19:25:04 [facility] ASSIGNMENT OF BENEFITS 2020-01-22 Doctor [facility] y of 19:11:24 Unassigned, No [place] [facility] Cholecystectomy [facility] Tubal Ligation [facility] Plan of Care Planned Activity Planned Date Details Comments Source Future Scheduled Test 2023-03-[address] [facility] 00:[facility] Screening (12+) [code = Tobacco Cessation Counseling and Screening (12+)] Future Scheduled Test 2023-03-[address] [facility] 00:00:00 [facility] r Screening (12+) [code = Tobacco Cessation Counseling and Screening (12+)] Future Scheduled Test 2022-04-14 COVID-19 VACCINE (#1) [facility] 13:31:14 [code = COVID-19 VACCINE (#1)] Future Scheduled Test 2022-04-14 65+ PNEUMOCOCCAL Me [facility] 13:31:14 VACCINE (1 - PCV) [code = 65+ PNEUMOCOCCAL VACCINE (1 - PCV)] Future Scheduled Test 2022-04-14 Hepatitis C screening [facility] 13:31:14 (procedure) [code = 259508484] Future Scheduled Test 2022-04-14 SHINGLES VACCINES (1 [facility] 13:31:14 of 2) [code = SHINGLES VACCINES (1 of 2)] Future Scheduled Test 2022-04-14 COLONOSCOPY SCREENING [facility] 13:31:14 [code = COLONOSCOPY SCREENING] Future Scheduled Test 2022-04-14 HEPATITIS B VACCINES [facility] 13:31:14 (1 of 3 - Risk 3-dose series) [code = HEPATITIS B VACCINES (1 of 3 - Risk 3-dose series)] Future Scheduled Test 2022-04-14 INFLUENZA VACCINE [facility] 13:31:14 [code = INFLUENZA VACCINE] Diagnostic Test 2022-04-01 CMP, serum or plasma [facility] Pending 00:00:00 [code = CMP, serum or Hospit al Clinics plasma] Diagnostic Test 2022-04-01 [facility] w[facility] diff [facility]00 [code = CBC w/ auto Hospital Clinics diff] Diagnostic Test 2022-04-01 urinalysis complete, [facility] Pending 00:00:00 reflex culture [code Hospita l Clinics = urinalysis complete, reflex culture] Diagnostic Test 2022-04-01 TSH, serum or plasma [facility] Pending 00:00:00 [code = TSH, serum or Hospit il Clinics plasma] Diagnostic Test 2022-04-01 T4, total, serum [place] [facility] Pending 00:00:00 [code = T4, total, Hospital Clinics serum] Future Scheduled Test 2022-03-[address] [facility] 00:00:00 (12+) [code = Medical Center DEPRESSION SCREENING (12+)] Future Scheduled Test 2022-03-29 FALLS RISK SCREENING [facility] 00:00:00 [code = FALLS RISK Medical C enter SCREENING] Future Scheduled Test 2022-03-27 COVID-19 Vaccine (#1) [facility] 08:09:40 [code = COVID-19 Medicine Vaccine (#1)] Future Scheduled Test 2022-03-27 TETANUS SHOT (ADULT) [facility] 08:09:40 [code = TETANUS SHOT Medicin e (ADULT)] Future Scheduled Test 2022-03-27 Hepatitis C screening [facility] 08:09:40 (procedure) [code = Medicine [id number]] Future Scheduled Test 2022-03-27 ZOSTER VACCINE (1 of [facility] 08:09:40 2) [code = ZOSTER Medicine VACCINE (1 of 2)] Future Scheduled Test 2022-03-27 Screening for [facility] 08:09:40 osteoporosis Medicine (procedure) [code = [id number]] Future Scheduled Test 2022-03-27 Pneumococcal 65+ (1 - [facility] 08:09:40 PCV) [code = Medicine Pneumococcal 65+ (1 - PCV)] Future Scheduled Test 2022-03-27 FLU VACCINE > 6 [facility] 08:09:40 MONTHS [code = FLU Medicine VACCINE > 6 MONTHS] Future Scheduled Test 2022-03-27 MEDICARE IPPE [facility] 08:09:40 (WELCOME TO MEDICARE) Medici ne [code = MEDICARE IPPE (WELCOME TO MEDICARE)] Future Scheduled Test 2022-03-27 FALL SCREEN [code = [facility] 08:09:40 FALL SCREEN] Medicine Future Scheduled Test 2022-03-27 COVID-19 Vaccine (#1) [facility] 08:09:40 [code = COVID-19 Medicine Vaccine (#1)] Future Scheduled Test 2022-03-27 TETANUS SHOT (ADULT) [facility] 08:09:40 [code = TETANUS SHOT Medicin e (ADULT)] Future Scheduled Test 2022-03-27 Hepatitis C screening [facility] 08:09:40 (procedure) [code = Medicine [id number]] Future Scheduled Test 2022-03-27 ZOSTER VACCINE (1 of [facility] 08:09:40 2) [code = ZOSTER Medicine VACCINE (1 of 2)] Future Scheduled Test 2022-03-27 Screening for [facility] 08:09:40 osteoporosis Medicine (procedure) [code = [id number]] Future Scheduled Test 2022-03-27 Pneumococcal 65+ (1 - [facility] 08:09:40 PCV) [code = Medicine Pneumococcal 65+ (1 - PCV)] Future Scheduled Test 2022-03-27 FLU VACCINE > 6 [facility] 08:09:40 MONTHS [code = FLU Medicine VACCINE > 6 MONTHS] Future Scheduled Test 2022-03-27 MEDICARE IPPE [facility] 08:09:40 (WELCOME TO MEDICARE) Medici ne [code = MEDICARE IPPE (WELCOME TO MEDICARE)] Future Scheduled Test 2022-03-27 FALL SCREEN [code = [facility] 08:09:40 FALL SCREEN] Medicine Future Scheduled Test 2022-01-05 HEPATITIS B VACCINES [facility] 15:32:56 (1 of 3 - 3-dose series) [code = HEPATITIS B VACCINES (1 of 3 - 3-dose series)] Future Scheduled Test 2022-01-05 COVID-19 VACCINE (#1) [facility] 15:32:56 [code = COVID-19 VACCINE (#1)] Future Scheduled Test 2022-01-05 65+ [facility] 15:32[facility] VACCINE (1 - PCV) [code = 65+ PNEUMOCOCCAL VACCINE (1 - PCV)] Future Scheduled Test 2022-01-05 Hepatitis C screening [facility] 15:32:56 (procedure) [code = [id number]] Future Scheduled Test 2022-01-05 SHINGLES VACCINES (1 [facility] 15:32:56 of 2) [code = SHINGLES VACCINES (1 of 2)] Future Scheduled Test 2022-01-05 COLONOSCOPY SCREENING [facility] 15:32:56 [code = COLONOSCOPY SCREENING] Future Scheduled Test 2022-01-05 INFLUENZA VACCINE [facility] 15:32:56 [code = INFLUENZA VACCINE] Future Scheduled Test 2021-11-[address] [facility] 00:00:00 (#1) [code = Medical Center INFLUENZA VACCINE (#1)] Future Scheduled Test 2021-11-[address] [facility] 00:00:00 (#1) [code = Medical Center INFLUENZA VACCINE (#1)] Future Scheduled Test 2021-03-[address] [facility] 00:00:00 WELLNESS (YEAR 2 or Medical Center FIRST YEAR if no IPPE) [code = MEDICARE ANNUAL WELLNESS (YEAR 2 or FIRST YEAR if no IPPE)] Future Scheduled Test 2021-03-[address] [facility] 00:00:00 WELLNESS (YEAR 2 or Medical Center FIRST YEAR if no IPPE) [code = MEDICARE ANNUAL WELLNESS (YEAR 2 or FIRST YEAR if no IPPE)] Future Scheduled Test 2021-03-[address] [facility] 00:00:00 (12+) [code = Medical Center DEPRESSION SCREENING (12+)] Future Scheduled Test 2021-03-29 FALLS RISK SCREENING [facility] 00:00:00 [code = FALLS RISK Medical C enter SCREENING] Future Scheduled Test 2010 PNEUMOCOCCAL 65+ YRS [facility] 00:00:00 (1 - PCV) [code = Medical Ce nter PNEUMOCOCCAL 65+ YRS (1 - PCV)] Future Scheduled Test 2010 PNEUMOCOCCAL 65+ YRS [facility] 00:00:00 (1 - PCV) [code = Medical Ce nter PNEUMOCOCCAL 65+ YRS (1 - PCV)] Future Scheduled Test 1995 SHINGLES VACCINES ([address] [facility] 00:00:00 of 2) [code = Medical Center SHINGLES VACCINES (1 of 2)] Future Scheduled Test 1995 SHINGLES VACCINES ([address] [facility] 00:00:00 of 2) [code = Medical Center SHINGLES VACCINES (1 of 2)] Future Scheduled Test 1964 DTAP/TDAP/TD VACCINES [facility] 00:00:00 (1 - Tdap) [code = Medical C enter DTAP/TDAP/TD VACCINES (1 - Tdap)] Future Scheduled Test 1964 DTAP/TDAP/TD VACCINES [facility] 00:00:00 (1 - Tdap) [code = Medical C enter DTAP/TDAP/TD VACCINES (1 - Tdap)] Future Scheduled Test 1963 HEPATITIS C SCREENING [facility] 00:00:00 [code = HEPATITIS C Medical Center SCREENING] Future Scheduled Test 1963 HEPATITIS C SCREENING [facility] 00:00:00 [code = HEPATITIS C Medical Center SCREENING] Future Scheduled Test 1945 COVID-19 VACCINE (#1) [facility] 00:00:00 [code = COVID-[address] VACCINE (#1)] Future Scheduled Test 1945 COVID-19 VACCINE (#1) [facility] 00:00:00 [code = COVID-[address] VACCINE (#1)] Future Scheduled Test 1945 DXA SCAN [code = DXA [facility] 00:00:00 SCAN] [facility] Future Scheduled Test 1945 DXA SCAN [code = DXA [facility] 00:00:00 SCAN] [facility] Future Appointment 2022-04-15 [facility] [place] [address] Encounters Start End Encounter Admission Attending Care Care Encounter Source Date/Time Date/Time Type Type Clinicians Facility Department ID 2022-02-03 Inpatient [facility] Surgery [id number] [facility] 10:17:40 CECIL 2022-04-08 2022-04-08 Outpatient MACY_Rommel [facility] [id number] [place] 00:00:00 00:00:00 111 Commun [facility] Hosp[facility] 2022-04-08 2022-04-08 Valeria Bronson [facility] [place] 111 [place] 00:00:00 00:00:00 Martell Escobar MD: [address] [facility], [place]RO Rhodes [facility], [facility] [address], [place], [place] CLINIC, [address] MACY , Ph. 2022-04-02 2022-04-02 Outpatient ZAIRA [facility] [id number] 0230 [place] 00:00:00 00:00:00 105 Commun i ty [facility]osp[facility] Clinics 2022-04-01 2022-04-01 Outpatient MACY_A [facility] [id number] 0230 [place] 00:00:00 00:00:00 104 Commun i ty Hospita l Clinics 2022-04-01 2022-04-01 Valeria Bronson [facility] [place] [facility] [place] 104 [place] 00:00:00 00:00:00 Martell Escobar MD: [address] [facility] [place], [facility] [address], COMM[facility] l [address], [facility] [place], [place], [address] MACY , Ph. 2022-03-26 2022-03-26 Office SEN Mock 1.2.840.114 [id number] [facility] 11:00:00 15:45:00 Visit Ahmed AMBULATOR 350.1.13.21 College Mufeed Y 0.2.7.2.686 of [id number] Medi alfredito 355 e 2022-03-26 2022-03-26 Office [facility] 1.2.840.114 [id number] [facility] 13:25:48 13:25:48 Visit DAQUAN AMBULATOR 350.1.13.21 College Y 0.2.7.2.686 of [id number] Medi alfredito 810 e 2022-03-26 2022-03-26 Outpatient [facility] [id number] [facility] 13:03:29 13:03:29 Colleg e of Medicin e 2022-03-01 2022-03-09 [facility] [id number] [facility] 14:45:00 13:50:00 Encounter Mrely Thompson Sung In [facility] 2022-03-01 2022-03-09 Inpatient [facility] Surgery [id number] [facility] 14:45:00 13:50:00 [facility] 2022-03-03 2022-03-04 Anesthesia Laron Negrete [facility] [id number] [facility] 18:23:00 01:48:[address] [facility] 2022-03-03 2022-03-04 Anesthesia Laron Negrete [facility] [id number] [facility] 18:23:00 01:48:[address] [facility] 2022-03-03 2022-03-03 Surgery Royce, [facility] [id number] 18:10:00 21:33:00 [facility] 2022-03-03 2022-03-03 Surgery Royce, [facility] [id number] 18:10:00 21:33:00 [facility] 2022-03-02 2022-03-02 Travel [facility] [id number] [facility] 00:00:00 00:00:00 [facility] 2022-03-02 2022-03-02 Travel [facility] [id number] [facility] 00:00:00 00:00:00 [facility] 2022-03-01 2022-03-01 Outpatient [facility] [id number] [place] [address] 14:45:00 23:59:00 Bowen 2022-02-16 2022-02-16 Lab Kristenjerod, 1.2.840.1 [id number] Methodi 10:40:00 10:45:[address] [place] 3.430.2.7 Hospit a .3.854119 l .8 2022-02-16 2022-02-16 Office Kristenjerod, 1.2.840.1 [id number] Methodi 09:30:00 10:24:08 Visit Sloan 83312.1.[address] [place] 3.430.2.7 Hospit a .3.759953 l .8 2022-02-16 2022-02-16 [facility] [id number] [place] 00:00:00 00:00:00 [address]LO[address] [facility] 2022-02-16 2022-02-16 Outpatient [facility] [id number] [place] 00:00:00 00:00:[address]LO[address] 2022-02-16 2022-02-16 Travel 1.2.840.1 1.2.531.632 [id number] Methodi 00:00:00 00:00:[address] 3.430.2.7 0.2.7.3.698 Ho spita .3.496245 084.8 l .8 2022-02-12 2022-02-12 Telephone Jr. Jignesh 1.2.840.1 [id number] Methodi 00:00:00 00:00:[address] 3.430.2.7 Hospit a .3.316438 l .8 2022-02-10 2022-02-10 [facility], 1.2.840.1 [id number] Methodi 06:43:32 23:59:00 Encounter Sloan 01761.1.[address] [place] 3.430.2.7 Hospit a .3.816713 l .8 2022-02-10 2022-02-10 Outpatient [facility] [id number] [place] 00:00:00 00:00:[address]LO[address] 2022-02-10 2022-02-10 Travel 1.2.840.1 1.2.587.600 [id number] Methodi 00:00:00 00:00:[address] 3.430.2.7 0.2.7.3.698 Ho spita .3.530651 084.8 l .8 2022-02-06 2022-02-06 [facility] 1.2.840.1 [id number] Methodi 14:00:00 14:30:00 ion [address]loan 32323.1.[address] Testing [place] 3.430.2.7 Hospit a .3.956138 l .8 2022-02-06 2022-02-06 Outpatient [facility] [id number] [place] 00:00:00 00:00:[address]LO[address] 2022-02-06 2022-02-06 Travel 1.2.840.1 1.2.214.800 [id number] Methodi 00:00:00 00:00:[address] 3.430.2.7 0.2.7.3.698 Ho spita .3.359742 084.8 l .8 2022-02-05 2022-02-05 Outpatient MACY_A [facility] [id number] [place] 00:00:00 00:00:00 110 Commun i ty Hospita [facility] 2022-02-04 2022-02-04 Outpatient JACKIE_A [facility] [id number] [place] 00:00:00 00:00:00 109 Commun i ty Hospita [facility] 2022-02-04 2022-02-04 Valeria Bronson [facility] [place] 109 [place] 00:00:00 00:00:00 Martell Escobar MD: [address] [facility] Hospit a [address], [facility] [address], HOS[facility] [place], [place] CLINIC, [address] MACY , Ph. 2022-02-03 2022-02-03 Travel 1.2.840.1 1.2.987.987 [id number] Methodi 00:00:00 00:00:[address] 3.430.2.7 0.2.7.3.698 Ho spita .3.688673 084.8 l .8 2022-02-03 2022-02-03 Telephone Ramírez, 1.2.840.1 [id number] Methodi 00:00:00 00:00:[address] 3.430.2.7 Hospit a .3.921417 l .8 2022-01-06 2022-01-24 [facility] [id number] [facility] 20:53:00 17:24:00 Encounter Brian [facility] 2022-01-06 2022-01-24 Hospital ER Ligia Huizar [facility] [id number] [facility] 20:53:00 17:24:00 Encounter [facility] 2021-12-28 2022-01-24 Inpatient ER BRIAN RUSTDAHLIA [facility] Emergency 20 [id number] [facility] 23:00:00 17:24:00 2022-01-16 2022-01-16 [facility] [id number] 00:00:00 00:00:00 Only [facility] 2022-01-16 2022-01-16 [facility] [id number] 00:00:00 00:00:00 Only [facility] 2022-01-15 2022-01-15 Surgery [facility], [facility] [id number] 13:30:00 14:30:00 [facility] 2022-01-15 2022-01-15 Surgery [facility], [facility] [id number] 13:30:00 14:30:00 [facility] 2022-01-07 2022-01-07 Telephone Promise, 1.2.840.1 [id number] 2099 [id number] Methodi 00:00:00 00:00:[address] 3.430.2.7 Hospit a .3.150693 l .8 2022-01-06 2022-01-06 Telephone Darrell 1.2.840.1 [id number] 2099 [id number] Methodi 00:00:00 00:00:[address] 3.430.2.7 Hospit a .3.904299 l .8 2021-12-31 2021-12-31 Orders Bubela, 1.2.840.1 [id number] 106760 0093 Methodi 00:00:00 00:00:00 Only Eli 11572.1.[address] 3.430.2.7 Hospit a .3.054933 l .8 2021-12-31 2021-12-31 Orders Bubela, 1.2.840.1 [id number] 3701 Methodi 00:00:00 00:00:00 Only Eli 28105.1.[address] 3.430.2.7 Hospit a .3.383605 l .8 2021-12-31 2021-12-31 Orders Bubela, 1.2.840.1 [id number] 561081 5444 Methodi 00:00:00 00:00:00 Only Eli 94808.1.[address] 3.430.2.7 Hospit a .3.051093 l .8 2021-12-31 2021-12-31 Orders Bubela, 1.2.840.1 [id number] 045092 7258 Methodi 00:00:00 00:00:00 Only Eli 25151.1.[address] 3.430.2.7 Hospit a .3.585195 l .8 2021-12-30 2021-12-30 Orders Pilar, 1.2.840.1 [id number] 78229 65125 Methodi 00:00:00 00:00:00 Only Jennifer 79323.1.[address] 3.430.2.7 Hospit a .3.847126 l .8 2021-12-30 2021-12-30 Documentat Promise, 1.2.840.1 [id number] 108 [id number] Methodi 00:00:00 00:00:00 ion Destinee 26824.1.[address] 3.430.2.7 Hospit a .3.713193 l .8 2021-12-30 2021-12-30 Orders Pilar, 1.2.840.1 [id number] 25444 91223 Methodi 00:00:00 00:00:00 Only Jennifer 09002.1.[address] 3.430.2.7 Hospit a .3.584990 l .8 2021-12-30 2021-12-30 Documentat Virgen, 1.2.840.1 [id number] 489 [id number] Methodi 00:00:00 00:00:00 ion Destinee 69445.1.[address] 3.430.2.7 Hospit a .3.618284 l .8 2021-12-25 2021-12-25 Outpatient KEFFER_A [facility] 5094-2 0220 [place] 00:00:00 00:00:00 929 Commun i ty Hospita Clinics 2021-12-24 2021-12-24 Outpatient KEFFER_A [facility] 5094-2 0220 [place] 00:00:00 00:00:00 928 Commun i ty Hospita [facility] 2021-12-24 2021-12-24 Valeria Bronson [facility] [place] 928 [place] 00:00:00 00:00:00 Martell Escobar MD: [address] [facility] Hospit a [address], [facility] [address], HOSPITAL Clinic [facility], [facility], [address] MACY , Ph. 2021-12-18 2021-12-18 [facility], 1.2.840.1 [id number] 152 [id number] Methodi 10:29:58 23:59:00 Encounter Sloan 09131.1.[address] Wilner 3.430.2.7 Hospit a .3.852897 l .8 2021-12-18 2021-12-18 [facility], 1.2.840.1 [id number] [place] 00:00:00 00:00:00 Encounter SLOAN 42608.1.[address] .3.224732 .8 2021-12-18 2021-12-18 Travel 1.2.840.1 1.2.718.343 4642 183833 Methodi 00:00:00 00:00:[address] 3.430.2.7 0.2.7.3.698 Ho spita .3.179030 084.8 l .8 2021-12-18 2021-12-18 Travel 1.2.840.1 1.2.253.880 9066 616622 Methodi 00:00:00 00:00:[address] 3.430.2.7 0.2.7.3.698 Ho spita .3.687189 084.8 l .8 2021-12-08 2021-12-08 Telephone Tyler, 1.2.840.1 [id number] 2099 162240 Methodi 00:00:00 00:00:[address] 3.430.2.7 Hospit a .3.847874 l .8 2021-12-08 2021-12-08 Telephone Tyler, 1.2.840.1 [id number] 2099 314248 Methodi 00:00:00 00:00:[address] 3.430.2.7 Hospit a .3.010301 l .8 2021-11-27 2021-11-27 Office Kristenerastosheridan, 1.2.840.1 [id number] 2099 256595 Methodi 11:00:00 11:42:38 Visit Sloan 02883.1.[address] Wilner 3.430.2.7 Hospit a .3.678621 l .8 2021-11-27 2021-11-27 Office Aishwarya, 1.2.840.1 [id number] 2099 731983 Methodi 11:00:00 11:42:38 Visit Sloan 33184.1.[address] Wilner 3.430.2.7 Hospit a .3.485277 l .8 2021-11-27 2021-11-27 Travel 1.2.840.1 1.2.056.508 0749 951728 Methodi 00:00:00 00:00:[address] 3.430.2.7 0.2.7.3.698 Ho spita .3.244047 084.8 l .8 2021-11-27 2021-11-27 Travel 1.2.840.1 1.2.023.243 6986 321562 Methodi 00:00:00 00:00:[address] 3.430.2.7 0.2.7.3.698 Ho spita .3.871696 084.8 l .8 2021-11-24 2021-11-24 [facility], 1.2.840.1 [id number] 56944 41501 Methodi 07:06:00 10:45:00 Encounter Svetang 61512.1.[address] Kurt 3.430.2.7 Hospit a .3.039486 l .8 2021-11-24 2021-11-24 [facility], 1.2.840.1 [id number] 483130 1318 Methodi 08:55:00 09:50:[address] Kurt 3.430.2.7 Hospit a .3.071314 l .8 2021-11-24 2021-11-24 [facility], 1.2.840.1 [id number] 588107 4553 Methodi 08:55:00 09:50:[address] Kurt 3.430.2.7 Hospit a .3.294030 l .8 2021-11-24 2021-11-24 Anesthesia Barrett Salesa [place] 1.2.840. 1 [id number] Methodi 08:51:00 09:28:00 Event Jessie, [place] 02368.1.[address] 3.430.2.7 Hospit a .3.056437 l .8 2021-11-24 2021-11-24 Anesthesia Henrry, Jessy Bang 1.2.840. 1 [id number] Methodi 08:51:00 09:28:00 Event Jessie, [place] 36193.1.[address] 3.430.2.7 Hospit a .3.203865 l .8 2021-11-24 2021-11-24 [facility] 021 [id number] 7 [place] 00:00:00 00:00:00 Encounter OLGA LIDIAETANFatemeh [address] 2021-11-21 2021-11-21 Telephone Tyler, 1.2.840.1 [id number] 2099 539388 Methodi 00:00:00 00:00:[address] 3.430.2.7 Hospit a .3.641039 l .8 2021-11-21 2021-11-21 Travel 1.2.840.1 1.2.602.772 5579 164217 Methodi 00:00:00 00:00:[address] 3.430.2.7 0.2.7.3.698 Ho spita .3.725296 084.8 l .8 2021-11-21 2021-11-21 [facility] [id number] 976 [place] 00:00:00 00:00:[address] CURTIS [address] 2021-11-21 2021-11-21 Telephone Tyler, 1.2.840.1 [id number] Methodi 00:00:00 00:00:[address] 3.430.2.7 Hospit a .3.211659 l .8 2021-11-21 2021-11-21 Travel 1.2.840.1 1.2.755.637 6556 308315 Methodi 00:00:00 00:00:[address] 3.430.2.7 0.2.7.3.698 Ho spita .3.347510 084.8 l .8 2021-11-19 2021-11-19 Travel 1.2.840.1 1.2.736.761 4782 089165 Methodi 00:00:00 00:00:[address] 3.430.2.7 0.2.7.3.698 Ho spita .3.868823 084.8 l .8 2021-11-19 2021-11-19 Travel 1.2.840.1 1.2.958.760 9156 574813 Methodi 00:00:00 00:00:[address] 3.430.2.7 0.2.7.3.698 Ho spita .3.279192 084.8 l .8 2021-11-16 2021-11-16 Outpatient MACY_A [facility] 5094-2 0220 [place] 00:00:00 00:00:00 821 Commun i ty Hospita l Clinics 2021-11-12 2021-11-12 Outpatient MACY_A [facility] 5094-2 0220 [place] 00:00:00 00:00:00 817 Commun i ty Hospita l Clinics 2021-11-12 2021-11-12 Valeria Bronson [facility] [place] 817 [place] 00:00:00 00:00:00 Martell Escobar MD: [address] [facility] Hospit a [address], COMMUNITY l [address], HOSPITAL [facility], [facility], [address] MACY , Ph. 2021-11-12 2021-11-12 Outpatient Valeria Escobar [facility] 16d [id number] 00:00:00 00:00:00 Aiyana [id number] 2021-11-04 2021-11-04 Prep for Austen, 1.2.840.1 [id number] 306 [id number] Methodi 00:00:00 00:00:00 Surgery Matilda M 19446.1.1 162 s t 3.430.2.7 Hospit a .3.669048 l .8 2021-11-04 2021-11-04 Prep for Austen, 1.2.840.1 [id number] 803 [id number] Methodi 00:00:00 00:00:00 Surgery Matilda M 33315.1.1 162 s t 3.430.2.7 Hospit a .3.915602 l .8 2021-10-29 2021-10-29 Telephone Tyler, 1.2.840.1 2099 [id number] Methodi 00:00:00 00:00:[address] 3.430.2.7 Hospit a .3.393652 l .8 2021-10-29 2021-10-29 Telephone Tyler, 1.2.840.1 [id number] Methodi 00:00:00 00:00:[address] 3.430.2.7 Hospit a .3.425089 l .8 2021-10-18 2021-10-18 Telephone Jeevan, 1.2.840.1 [id number] 2100 948472 Methodi 00:00:00 00:00:[address] 3.430.2.7 Hospit a .3.594578 l .8 2021-10-18 2021-10-18 Telephone Jeevan, 1.2.840.1 [id number] 2100 595907 Methodi 00:00:00 00:00:[address] 3.430.2.7 Hospit a .3.725332 l .8 2021-10-16 2021-10-16 Office Haubert, 1.2.840.1 [id number] 74095 Methodi 09:00:00 09:20:15 Visit Jayda Alexis 64278.1.1 998 s t 3.430.2.7 Hospit a .3.864967 l .8 2021-10-16 2021-10-16 Office Haubert, 1.2.840.1 [id number] 92075 Methodi 09:00:00 09:20:15 Visit Jayda Alexis 30798.1.1 998 s t 3.430.2.7 Hospit a .3.155587 l .8 2021-10-16 2021-10-16 Travel 1.2.840.1 1.2.868.939 7375 447453 Methodi 00:00:00 00:00:[address] 3.430.2.7 0.2.7.3.698 Ho spita .3.228065 084.8 l .8 2021-10-16 2021-10-16 Travel 1.2.840.1 1.2.600.534 3542 192396 Methodi 00:00:00 00:00:[address] 3.430.2.7 0.2.7.3.698 Ho spita .3.110510 084.8 l .8 2021-10-11 2021-10-11 Telephone Jan, 1.2.840.1 [id number] Methodi 00:00:00 00:00:[address] 3.430.2.7 Hospit a .3.206872 l .8 2021-10-11 2021-10-11 Telephone Jan, 1.2.840.1 [id number] Methodi 00:00:00 00:00:[address] 3.430.2.7 Hospit a .3.596020 l .8 2021-10-07 2021-10-07 [facility], 1.2.840.1 [id number] 2099 935524 Methodi 09:08:49 23:59:00 Encounter Jayda Alexis 35844.1.[address] 3.430.2.7 Hospit a .3.907503 l .8 2021-10-07 2021-10-07 [facility], 1.2.840.1 [id number] 2099 535562 Methodi 09:08:49 23:59:00 Encounter Jayda Alexis 79910.1.[address] 3.430.2.7 Hospit a .3.841779 l .8 2021-10-07 2021-10-07 Travel 1.2.840.1 1.2.525.088 9257 723733 Methodi 00:00:00 00:00:[address] 3.430.2.7 0.2.7.3.698 Ho spita .3.970534 084.8 l .8 2021-10-07 2021-10-07 Travel 1.2.840.1 1.2.927.479 4199 590364 Methodi 00:00:00 00:00:[address] 3.430.2.7 0.2.7.3.698 Ho spita .3.687272 084.8 l .8 2021-10-03 2021-10-03 Outpatient Ferguson_Ro [facility] 118 714-202 [facility] 11:16:00 11:16:[address] [facility] 2021-10-02 2021-10-02 Travel 1.2.840.1 1.2.401.874 2620 317182 Methodi 00:00:00 00:00:[address] 3.430.2.7 0.2.7.3.698 Ho spita .3.091095 084.8 l .8 2021-10-02 2021-10-02 [facility]79[facility] 6180 [place] 00:00:00 00:00:00 JAYDA [address] 2021-10-02 2021-10-02 Travel 1.2.840.1 1.2.311.326 6876 795995 Methodi 00:00:00 00:00:[address] 3.430.2.7 0.2.7.3.698 Ho spita .3.632147 084.8 l .8 2021-10-01 2021-10-01 Travel 1.2.840.1 1.2.300.039 6289 951396 Methodi 00:00:00 00:00:[address] 3.430.2.7 0.2.7.3.698 Ho spita .3.470410 084.8 l .8 2021-10-01 2021-10-01 Telephone Ramírez, 1.2.840.1 [id number] 2099 619645 Methodi 00:00:00 00:00:[address] 3.430.2.7 Hospit a .3.125994 l .8 2021-10-01 2021-10-01 Travel 1.2.840.1 1.2.176.767 4875 654698 Methodi 00:00:00 00:00:[address] 3.430.2.7 0.2.7.3.698 Ho spita .3.173725 084.8 l .8 2021-10-01 2021-10-01 Telephone Ramírez, 1.2.840.1 [id number] 2099 057638 Methodi 00:00:00 00:00:[address] 3.430.2.7 Hospit a .3.246914 l .8 2021-09-23 2021-09-23 Travel 1.2.840.1 1.2.325.794 9263 226499 Methodi 00:00:00 00:00:[address] 3.430.2.7 0.2.7.3.698 Ho spita .3.801283 084.8 l .8 2021-09-23 2021-09-23 Travel 1.2.840.1 1.2.683.288 8257 461643 Methodi 00:00:00 00:00:[address] 3.430.2.7 0.2.7.3.698 Ho spita .3.513775 084.8 l .8 2021-09-22 2021-09-22 Jayda Palacio 1.2.840.1 [id number] 21 [id number] Methodi 00:00:00 00:00:[address] 3.430.2.7 Hospit a .3.228307 l .8 2021-09-22 2021-09-22 Orders Jayda Louis 1.2.840.1 [id number] 21 [id number] Methodi 00:00:00 00:00:[address] 3.430.2.7 Hospit a .3.193716 l .8 2021-09-16 2021-09-16 [facility], 1.2.840.1 [id number] 2099 782295 Methodi 15:05:50 23:59:00 Encounter Jayda Alexis 28094.1.[address] 3.430.2.7 Hospit a .3.753322 l .8 2021-09-16 2021-09-16 [facility], 1.2.840.1 [id number] 2099 158367 Methodi 15:05:50 23:59:00 Encounter Jayda Alexis 26002.1.[address] 3.430.2.7 Hospit a .3.270640 l .8 2021-09-16 2021-09-16 [facility], 1.2.840.1 [id number] 264 [id number] Methodi 00:00:00 00:00:00 Jayda Alexis 77403.1.1 403 s t 3.430.2.7 Hospit a .3.391862 l .8 2021-09-16 2021-09-16 Orders Jayda Louis 1.2.840.1 [id number] 21 [id number] Methodi 00:00:00 00:00:[address] 3.430.2.7 Hospit a .3.954274 l .8 2021-09-16 2021-09-16 [facility], 1.2.840.1 [id number] 318 3611590 Methodi 00:00:00 00:00:00 Jayda Alexis 45920.1.1 403 s t 3.430.2.7 Hospit a .3.801551 l .8 2021-09-16 2021-09-16 Orders Jayda Louis 1.2.840.1 [id number] 21 [id number] Methodi 00:00:00 00:00:[address] 3.430.2.7 Hospit a .3.469045 l .8 2021-09-10 2021-09-10 Office Haubert, 1.2.840.1 [id number] 52076 49822 Methodi 13:00:00 14:09:43 Visit Jayda Alexis 30437.1.1 062 s t 3.430.2.7 Hospit a .3.100361 l .8 2021-09-10 2021-09-10 Office Haubert, 1.2.840.1 [id number] 65653 Methodi 13:00:00 14:09:43 Visit Jayda Alexis 60607.1.1 062 s t 3.430.2.7 Hospit a .3.916375 l .8 2021-09-10 2021-09-10 Travel 1.2.840.1 1.2.143.058 7470 412583 Methodi 00:00:00 00:00:[address] 3.430.2.7 0.2.7.3.698 Ho spita .3.065456 084.8 l .8 2021-09-10 2021-09-10 Travel 1.2.840.1 1.2.303.466 7335 050015 Methodi 00:00:00 00:00:[address] 3.430.2.7 0.2.7.3.698 Ho spita .3.851673 084.8 l .8 2021-08-12 2021-08-12 Outpatient ZAIRA [facility] 5094-2 0220 [place] 05:28:00 05:28:00 517 Commun i ty Hospita [facility] Clinics 2021-08-12 2021-08-12 Valeria Bronson [facility] [place] 517 [place] 00:00:00 00:00:00 Martell Escobar MD: [address] [facility] IS[facility]RO Alanis Hospit a [address], COMMUNITY l [address], HOSPITAL Clinic s [place], [place] CLINIC, [address] MACY , Ph. 2021-08-12 2021-08-12 Outpatient Valeria Escobar [facility] faf [id number]-t 00:00:00 00:00:00 Aiyana [id number] 2021-08-05 2021-08-05 Outpatient KEJACKIE_A [facility] 5094-2 0220 [place] 01:16:00 01:16:00 510 Commun i ty Hospita l Clinics 2021-08-05 2021-08-05 Valeria Bronson [facility] [place] 510 [place] 00:00:00 00:00:00 Martell Escobar MD: [address] [facility] Hospit a [address], [facility] l Suite , HOSPITAL [place], [place] CLINIC, [address] MACY , Ph. 2021-08-05 2021-08-05 Outpatient Valeria Escobar [facility] 8ec ecfee-d 00:00:00 00:00:00 Aiyana [id number] 2021-07-15 2021-07-15 Outpatient CHELYJACKIE_A [facility] 5094-2 0220 [place] 01:13:00 01:13:00 419 Commun i ty Hospita l [facility] 2021-07-15 2021-07-15 Valeria Bronson [facility] [place] 419 [place] 00:00:00 00:00:00 Martell Escobar MD: [address] [facility] Hospit a [address], COMMUNITY l [address], [place], [place] CLINIC, [address] MACY , Ph. 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 Program [address] , Ph. 2021-07-01 2021-07-01 Outpatient Ferguson_Ro [facility] 118 4 [place] 01:47:00 01:47:00 bin 86531 [facility] 2021-06-30 2021-06-30 Outpatient Ferguson_Ro [facility] 118 [place] 09:48:00 09:48:00 bin 45888 [facility] 2021-06-24 2021-06-24 Outpatient MACY_Rommel [facility] 5094-2 0220 [place] 12:05:00 12:05:00 329 Commun i ty Hospita [facility] Clinics 2021-06-24 2021-06-24 Valeria Bronson [facility] 329 [place] 00:00:00 00:00:00 Martell Escobar MD: [address] [facility] ty Alanis [facility] Hospit a [address], COMMUNITY l [address], HOSPITAL Clinic [place], [place] CLINIC, [address] MACY , Ph. 2021-06-24 2021-06-24 Outpatient Valeria Escobar [facility] 791 [id number] 00:00:00 00:00:00 Aiyana [id number] 2021-06-23 2021-06-23 Outpatient JIM, MHFB MHFB 7500 MHFB 07:13:00 11:40:00 ARGELIA 2021-06-23 2021-06-23 Outpatient KEFFER_A [facility] 5094-2 0220 [place] 04:04:00 04:04:00 328 Commun i ty Hospita [facility] Clinics 2021-06-03 2021-06-03 Outpatient Ferguson_Ro [facility]OP [facility] 118 [place] 08:56:00 08:56:00 bin [facility] 2021-06-02 2021-06-02 Outpatient Ferguson_Ro [facility] 118 [place] 03:29:00 03:29:00 bin [facility] 2021-06-02 2021-06-02 Jamir Bronson [facility] [place] - 7 [place] 00:00:00 00:00:00 Maria De Jesus Herrera MD: [id number] [employer]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 2021-05-27 2021-05-27 Outpatient Ferguson_Ro [facility] 118 [place] 10:17:00 10:17:00 bin [facility] 2021-05-26 2021-05-26 Outpatient Ferguson_Ro [facility] 118 [place] 04:39:00 04:39:00 bin [facility] 2021-05-19 2021-05-19 Outpatient Ferguson_Ro [facility] 118 [place] 01:59:00 01:59:00 bin [facility] 2021-05-14 2021-05-14 Jamshid Burgos, 1.2.840.1 [id number] 2100 361005 Methodi 00:00:00 00:00:[address] 3.430.2.7 Hospit a .3.105559 l .8 2021-05-14 2021-05-14 Deysi Coe2.840.1 [id number] 2100 011841 Methodi 00:00:00 00:00:[address] 3.430.2.7 Hospit a .3.260282 l .8 2021-04-09 2021-04-09 Outpatient MACY_A [facility] 5094-2 0220 [place] 02:30:00 02:30:00 112 Commun i ty Hospita [facility] Clinics 2021-04-09 2021-04-09 Valeria Bronson [facility] [place] 112 [place] 00:00:00 00:00:00 Martell Escobar MD: [address] [facility] Hospit a [address], COMMUNITY l [address], HOSPITAL [facility], [address] MACY , Ph. 2021-04-09 2021-04-09 Outpatient Valeria Escobar [facility] 35c [id number] 00:00:00 00:00:00 Aiyana [id number] 2021-03-18 2021-03-18 Outpatient MACY_Rommel [facility] 5094-2 0211 [place] 04:45:00 04:45:00 221 Commun i ty Hospita [facility] Clinics 2021-03-18 2021-03-18 Valeria Bronson [facility] [place] 221 [place] 00:00:00 00:00:00 Martell Escobar MD: [address] [facility] Hospit a [address], COMMUNITY l [address], [facility], [address] MACY , Ph. 2021-02-13 2021-02-13 Outpatient MACY_Rommel [facility] [id number] [place] 04:05:00 04:05:00 118 [facility] 2021-02-13 2021-02-13 Valeria Bronson [facility] [place] 118 [place] 00:00:00 00:00:00 Martell Escobar MD: [address] [facility] [address], [address], [place], [place] [facility], [address] MACY , Ph. 2021-02-13 2021-02-13 Outpatient Valeria Escobar [facility] [id number] 00:00:00 00:00:00 Aiyana [id number] 2021-01-23 2021-01-23 Outpatient MACY_A [facility] [id number] 0211 [place] 01:03:00 01:03:00 028 [facility] 2021-01-23 2021-01-23 Outpatient Valeria Escobar [facility] [id number] 00:00:00 00:00:00 Aiyana [id number] 2021-01-23 Valeria Bronson [facility] [place] 028 [place] 00:00:00 00:00:00 Martell Escobar MD: [address] [facility] [address], [facility] [address], [facility] [place], [place] [facility], [address] MACY , Ph. 2021-01-03 2021-01-03 Outpatient KEFFER_A [facility] [id number] [place] 05:21:00 05:21:00 [id number] [facility] 2020-12-23 2020-12-23 Outpatient KEFFER_A [facility] [id number] [place] 10:39:00 10:39:00 927 [facility] 2020-12-23 2020-12-23 Outpatient Valeria Escobar [facility] [id number] 00:00:00 00:00:00 Aiyana [id number] 2020-12-23 2020-12-23 Valeria Bronson [facility] [place] [id number] [place] 00:00:00 00:00:00 Martell Escobar MD: [address] [facility] [address], [facility] [address], [place], [place], [address] MACY , Ph. 2020-11-25 2020-11-25 Outpatient MACY_A [facility] [id number] [place] 12:35:00 12:35:00 830 [facility] 2020-10-24 2020-10-24 Outpatient MACY_A [facility] [id number] [place] 04:21:00 04:21:00 729 [facility] 2020-10-24 2020-10-24 Outpatient Tez [facility] [id number] 00:00:00 00:00:00 Warren [id number] Higuera [id number] 2020-10-24 2020-10-24 [facility] [place] 00:00:00 00:00:00 [facility]: [address] [facility] [address], [place] [address] , Ph. 2020-10-21 2020-10-21 [facility] [id number] 0210 [place] 03:59:00 03:59:00 726 [facility] 2020-10-08 2020-10-08 Outpatient Tez [facility] [id number] 00:00:00 00:00:00 Warren [id number] Higuera [id number] 2020-10-08 2020-10-08 Warren [facility] [id number] [place] 00:00:00 00:00:00 [facility] [address] [facility] [phone] SURG[facility] , Ph. 2020-09-17 2020-09-17 Outpatient MACY_A [facility] [id number] [place] 04:37:00 04:37:00 622 [facility] 2020-09-12 2020-09-12 Outpatient KEFFER_A [facility] [id number] [place] 09:22:00 09:22:00 617 [facility] 2020-09-12 2020-09-12 [facility] 17 [place] 00:00:00 00:00:00 [facility] : [address] [facility] [address] [place] [address] , Ph. 2020-09-12 2020-09-12 Outpatient Tez [facility] [id number] 00:00:00 00:00:00 Warren [id number] [place] [id number] 2020-08-29 2020-08-29 Outpatient MACY_A [facility] [id number] 0210 [place] 04:14:00 04:14:00 603 [facility] 2020-08-29 2020-08-29 Valeria Bronson [facility] [id number] [place] 00:00:00 00:00:00 Martell Escobar MD: [address] [facility] [address], [address], [place], [place], [address] MACY , Ph. 2020-08-29 2020-08-29 Outpatient Valeria Escobar [facility] [id number] 00:00:00 00:00:00 Aiyana [id number] 2020-07-09 2020-07-09 Outpatient KEJACKIE_A [facility] [id number] [place] 02:49:00 02:49:00 413 [facility] 2020-07-09 2020-07-09 Valeria Bronson [facility] [place] 413 [place] 00:00:00 00:00:00 Martell Escobar [facility] : [address] [facility] [address], [address], H[facility] [place], [place], [address] MACY , Ph. 2020-07-09 2020-07-09 Outpatient Valeria Escobar [facility] [id number] 00:00:00 00:00:00 Aiyana [id number] 2020-06-19 2020-06-19 Outpatient MACY_A [facility] 5094-2 0210 [place] 11:09:00 11:09:00 324 [facility] 2020-06-19 2020-06-19 Valeria Bronson [facility] [place] [facility] [place] 324 [place] 00:00:00 00:00:00 Martell Escobar [facility] MD: [address] [facility] [address], COMMUNITY l [address], HOSPITAL [facility], [address] MACY , Ph. 2020-06-19 2020-06-19 Outpatient Valeria Escobar [facility] 135 175fd-[id number] 00:00:00 00:00:00 Aiyana [id number] 2020-03-08 2020-03-08 Telephone Ruddy [facility] [id number] [facility] 00:00:00 00:00:00 [facility] 350.1.13.10 y of Surgical 4.2.7.2.686 [place] as Specialti [id number] Me dical es 198 [facility] 2020-03-07 2020-03-07 Office [facility] [id number] Univers 08:46:43 09:23:25 Visit Precious Hernandez [facility] 350.1.13.10 it y of Surgical 4.2.7.2.686 [place] as Specialti [id number] [place] dical es 198 [facility] 2020-03-07 2020-03-07 Office [facility] [id number] 1291 08:46:43 09:23:25 Visit Precious Hernandez [facility] 350.1.13.10 Surgical 4.2.7.2.686 Specialti [id number] es [address] [place] [address] 2020-03-07 2020-03-07 [facility] [id number] Univers 08:45:00 08:45:00 PRECIOUS ity of [facility] 2020-03-07 2020-03-07 Orders Doctor WADE 1.2.840.114 [id number] Univers 00:00:00 00:00:00 Only Unassigned, CECILIA 350.1.13.10 ity of [place] [facility] 4.2.7.2.686 Thomas as [id number] [address] 2020-03-07 2020-03-07 Orders Doctor SHERI 1.2.840.114 [id number] 00:00:00 00:00:00 Only Unassigned, CECILIA 350.1.13.10 [place] [facility] 4.2.7.2.686 [id number] [facility] 2020-02-14 2020-02-14 [facility] 1.2.840.114 [id number] Univers 07:36:30 23:59:00 Encounter Precious Ortiz 350.1.13.10 ity of [place] 4[place]2.7.2.686 [place] [id number] [facility] [address] 2020-02-14 2020-02-14 Outpatient chelyffer_rommel [facility] 2019 [place] 02:28:00 02:28:00 1118 [facility] 2020-02-14 2020-02-14 [facility] [id number] Univers 00:00:00 00:00:00 PRECIOUS ity of [facility] 2020-02-07 2020-02-07 Orders Doctor SHERI 1.2.840.114 [id number] Univers 00:00:00 00:00:00 Only Unassigned, CECILIA 350.1.13.10 ity of [place] [facility] 4.2.7.2.686 Thomas as [phone] [address] 2020-02-06 2020-02-06 Telephone [facility] 1.2.840.114 [id number] Univers 00:00:00 00:00:00 Precious Hernandez [facility] 350.1.13.10 it y of Surgical 4.2.7.2.686 [place] as Specialti [id number] [place] dical es 198 [facility] 2020-01-22 2020-01-22 Hospital [facility] 1.2.840.114 [id number] Univers 14:11:43 23:59:00 Encounter Precious Ortiz 350.1.13.10 ity of [place] 4.2.7.2.686 [place] [phone] [facility] [address] 2020-01-22 2020-01-22 Office [facility] [id number] Univers 14:42:46 15:06:37 Visit Precious Harris 350.1.13.10 it y of Surgical 4.2.7.2.686 [place] as Specialti [phone] [place] dicil es 198 [facility] 2020-01-22 2020-01-22 [facility]patient [facility] [id number] Univers 15:00:00 15:00:00 PRECIOUS moran [facility] 2020-01-22 2020-01-22 Orders Doctor WADE 1.2.840.114 [id number] Univers 00:00:00 00:00:00 Only Unassigned, CECILIA 350.1.13.10 ity of [place] [facility] 4.2.7.2.686 Thomas as [phone] [address] 2020-01-22 2020-01-22 Telephone [facility] 1.2.840.114 [id number] Univers 00:00:00 00:00:00 [facility] 350.1.13.10 it y of Surgical 4.2.7.2.686 [place] as Specialti [id number] [place] dical es [address] [place] Results Test Description Test Time Test Comments Results Result Comments Source Fungus culture + smear 2022-04-01 03:21:34 Test Item Value Reference Range Interpretation Comme nts Result (test code = 6463-4) No fungus isolated in 28 days Fungus Smear (test code = 1406) No fungi [facility] [id number] 03:21:34 Test Item Value Reference Range Interpretation Comments CULTURE (BEAKER) (test No fungus isolated in code = 1095) 28 days FUNGUS SMEAR (BEAKER) No fungi seen (test code = 1406) FUNGUS CULTURE + [id number] 03:21:34 Test Item Value Reference Range Interpretation Comments CULTURE (BEAKER) (test No fungus isolated in code = 1095) 28 days FUNGUS SMEAR (BEAKER) No fungi seen (test code = 1406) FUNGUS CULTURE + [id number] 03:21:34 Test Item Value Reference Range Interpretation Comments CULTURE (BEAKER) (test No fungus isolated in code = 1095) 28 days FUNGUS SMEAR (BEAKER) No fungi seen (test code = 1406) FUNGUS CULTURE + [id number] 03:21:33 Test Item Value Reference Range Interpretation Comments CULTURE (BEAKER) (test No fungus isolated in code = 1095) 28 days FUNGUS SMEAR (BEAKER) No fungi seen (test code = 1406) SEDIMENTATION RATE MODIFIED [id number] 12:21:58 Test Item Value Reference Range Interpretation Comments ERYTHROCYTE See_Comment H Unless Otherwi se SEDIMENTATION RATE (test Ind icated, All code = 4537-7) Testing Perfo rmed At: [facility], [address] [place] [address] Laborator y Director: Sera EsquivelIA Number [id number] [place]. [id number] [Autom ated message] The sy stem which generated this result transmit [place] reference range : 0 - 20 MM/HOUR. The reference range was not used to int erpret this result as normal/abnormal . Lab Interpretation (test Abnormal code = 49054-2) [facility] [id number] 12:13:28 Test Item Value Reference Range Interpretation Comments C-REACTIVE PROTEIN See_Comment Unless O therwise (test code = 1987-) Indicat ed, All Testing Performed At: C linical Pathology [facility], [address] [place] [address] Laborator y Director: Arik poon M.D. [place] Number [id number] [employer] [place] o. [id number] [Automated mess age] The system which ge nerated this result tra nsmitted reference range : <0.5 MG/DL. The refe rence range was not used to interpret this result as normal/abnormal . [facility] CenterCOMPREHENSIVE METABOLIC [id number] 12:07:54 Test Item Value Reference Range Interpretation Comments GLUCOSE (test code = See_Comment [Autom ated message] 2345-7) The system [employer] generated this result transmitted ref erence range: 70 - 99 MG/DL. The reference r abel was not used to interpret this result as normal/abnor mal. BLOOD UREA NITROGEN See_Comment [Automa [place] message] (test code = 3091-6) The [facility] tem which generated this result transmitted ref erence range: 8 - 23 M G/DL. The reference r abel was not used to interpret this result as normal/abnor mal. CREATININE (test code = See_Comment [Au tomated message] 2160-0) The system [employer] generated this result transmitted ref erence range: 0.60 - 1 .30 MG/DL. The refe rence range was not u sed to interpret this result as normal/abnor mal. EGFR (test code = See_Comment [Automate d message] 67880-6) The system [employer] generated this result transmitted ref erence range: >60 ML/MIN/1.73. Th e reference range was not used to int erpret this result as normal/abnormal . BUN/CREAT RATIO (test See_Comment [Auto mated message] code = 3097-3) The system [employer] generated this result transmitted ref erence range: 6 - 28 R ATIO. The reference r abel was not used to interpret this result as normal/abnor mal. SODIUM (test code = See_Comment [Automa [place] message] 2951-2) The system [facility] generated this result transmitted ref erence range: 133 - 14 6 MEQ/L. The refe rence range was not u sed to interpret this result as normal/abnor mal. POTASSIUM (test code = See_Comment [Aut omated message] 2823-3) The system [employer] generated this result transmitted ref erence range: 3.5 - 5. 4 MEQ/L. The refe rence range was not u sed to interpret this result as normal/abnor mal. CHLORIDE (test code = See_Comment [Auto mated message] 1655-0) The system [facility] generated this result transmitted ref erence range: 95 - 107 MEQ/L. The reference r abel was not used to interpret this result as normal/abnor mal. CO2 (test code = See_Comment [Automated message] 1963-8) The system [employer] generated this result transmitted ref erence range: 19 - 31 MEQ/L. The reference r abel was not used to interpret this result as normal/abnor mal. CALCIUM (test code = See_Comment H [Autom ated message] 99013-3) The system [facility] [employer] generated this result transmitted ref erence range: 8.5 - 10 .5 MG/DL. The refe rence range was not u sed to interpret this result as normal/abnor mal. PROTEIN TOTAL (test See_Comment [Automa [place] message] code = 2885-2) The system [facility] generated this result transmitted ref erence range: 6.1 - 8. 3 G/DL. The reference r abel was not used to interpret this result as normal/abnor mal. ALBUMIN (test code = See_Comment [Autom ated message] 22630-1) The system [facility] [employer] generated this result transmitted ref erence range: 3.5 - 5. 2 G/DL. The reference r abel was not used to interpret this result as normal/abnor mal. GLOBULINS, SERUM, TOTAL See_Comment [Au tomated message] (test code = 90407-9) The sy stem which generated this result transmitted ref erence range: 1.9 - 3. 7 G/DL. The reference r abel was not used to interpret this result as normal/abnor mal. A/G RATIO (test code = See_Comment [Aut omated message] 1759-0) The system [employer] generated this result transmitted ref erence range: 1.0 - 2. 6 RATIO. The refe rence range was not u sed to interpret this result as normal/abnor mal. BILIRUBIN TOTAL (test See_Comment [Auto mated message] code = 1975-2) The system [employer] generated this result transmitted ref erence range: <=1.2 MG /DL. The reference r abel was not used to interpret this result as normal/abnor mal. ALKALINE PHOSPHATASE 104 U/L 40-142 (test code = 6768-6) AST (SGOT) (test code = 13 U/L 9-40 1920-8) ALT (SGPT) (test code = 5-40 L Unl ess Otherwise 1744-2) Indicated, All Testing Performed At: [facility], [address] [place] [address] Laborator y Director: Arik Riddle M.D. CLIA Number [id number] [place] Accreditation [place] o. [id number] Lab Interpretation Abnormal (test code = 94719-5) [facility] W/AUTO DIFF WITH [id number] 09:50:43 Test Item Value Reference Range Interpretation Comments WHITE BLOOD CELL COUNT See_Comment H [Aut omated message] (test code = 42036-8) The sy stem which generated this result transmitted ref erence range: 3.5 - 11 .0 K/UL. The refer ence range was not u sed to interpret this result as normal/abnor mal. RED BLOOD CELL COUNT See_Comment [Autom ated message] (test code = 24261-3) The sy stem which generated this result transmitted ref erence range: 3.80 - 5 .40 M/UL. The refer ence range was not u sed to interpret this result as normal/abnor mal. HEMOGLOBIN (test code = See_Comment L [Au tomated message] 718-7) The system [employer] generated this result transmitted ref erence range: 11.5 - 1 5.5 G/DL. The refer ence range was not u sed to interpret this result as normal/abnor mal. HEMATOCRIT (test code = 34.8 % 34.0-45.0 45133-7) MEAN CORPUSCULAR VOLUME 81.3 fL 80.0-99.0 (test code = 26881-2) MEAN CORPUSCULAR 25.0 PG 25.0-33.0 HEMOGLOBIN (test code = 29301-2) MEAN CORPUSCULAR See_Comment L [Automated message] HEMOGLOBIN CONC (test The sy stem which code = 55941-7) generated th is result transmitted ref erence range: 31.0 - 3 6.0 G/DL. The refer ence range was not u sed to interpret this result as normal/abnor mal. RED CELL DISTRIBUTION 17.0 % 11.5-15.0 H WIDTH (test code = 41800-3) NEUTROPHILS % (test code 53.3 % = 88684-3) LYMPHOCYTES % (test code 40.2 % = 54469-1) MONOCYTES % (test code = 4.9 % 61509-8) EOSINOPHILS % (test code 0.9 % = 18084-3) BASOPHILS % (test code = 0.4 % 58715-8) IMMATURE GRANULOCYTES 0.3 % (test code = 45848-8) NUCLEATED RBC'S See_Comment Unless Othe rwise MYELOPEROX STAIN (test Indic ated, All code = 99475-3) Testing Perf ormed At: [facility], [address] [place] [address] Laborator y Director: Arik Riddle M.D. CLIA Number [id number] [employer] Accreditation [place] o. [id number] [Autom ated message] The sy stem which generated this result transmit [place] reference range : 0.00 - 0.11 K/UL. Th e reference range was not used to int erpret this result as normal/abnormal . PLATELET COUNT (test See_Comment [Autom ated message] code = 96796-1) The system w [facility] generated this result transmitted ref erence range: 130 - 40 0 K/UL. The refer ence range was not u sed to interpret this result as normal/abnor mal. NEUTROPHILS ABSOLUTE See_Comment [Autom ated message] COUNT (test code = The syste m which 05777-8) generated this result transmitted ref erence range: 1.50 - 7 .50 K/UL. The refer ence range was not u sed to interpret this result as normal/abnor mal. LYMPHOCYTES ABSOLUTE See_Comment H [Autom ated message] COUNT (test code = The syste m which 99477-5) generated this result transmitted ref erence range: 1.00 - 4 .00 K/UL. The refer ence range was not u sed to interpret this result as normal/abnor mal. MONOCYTES ABSOLUTE COUNT See_Comment [A utomated message] (test code = 92522-4) The sy stem which generated this result transmitted ref erence range: 0.20 - 1 .00 K/UL. The refer ence range was not u sed to interpret this result as normal/abnor mal. BASOPHILS ABSOLUTE COUNT See_Comment [A utomated message] (test code = 54356-5) The sy stem which generated this result transmitted ref erence range: 0.00 - 0 .20 K/UL. The refer ence range was not u sed to interpret this result as normal/abnor mal. IMMATURE GRANS (ABS) See_Comment [Autom ated message] (test code = 9987) The syste m which generated this result transmitted ref erence range: 0.00 - 0 .10 K/UL. The refer ence range was not u sed to interpret this result as normal/abnor mal. Lab Interpretation (test Abnormal code = 51844-6) [facility] Center[facility] [id number] 00:13:00 Test Item Value Reference Range Interpretation Comments AFB culture No growth Specimen isolate (test after 6 weeks InformationSp ecimen code = 543-9) of Source: [place] geSpecimen incubation. Site: Liver: pe ri-hepatic mass biopsy and culture [facility] HealthcareHistoplasma antigen, [id number] 22:48:11 Test Item Value Reference Range Interpretation Comments Histoplasma <0.2 ng/mL REFERENCE RANGE : <0.2 Antigen (test ng/mL [facility] code = 7843499) galactomanna n is frequently dete ctedin urine from amanda ents with disseminatedhis toplas mosis. However, a negative result doesnot exclude a diagnosis of histoplasmosis. Manypatients wi th acute pulmonary disease or chroniccavitary disease do not exhibit antigenuria.Spe cimens from patients w ith other endemicfu ngal infections, suc h as blastomycosis,p aracoc cidioidomycosis , or candidiasis, ma y alsobe positive in this assay. Thi s test should be used in conjunction wit h otherdiagnostic s tests, includin g culture, molecularassays , and histology in guy beckett a final diagnosis . TR (test code = Performing Lab TR) *[facility]Original[facility] [address] [place] [address] Penny Gamboa MD, PhD [facility] antigen, [id number] 22:48:11 Test Item Value Reference Range Interpretation Comments Histoplasma <0.2 ng/mL REFERENCE RANGE : <0.2 Antigen (test ng/mL [facility] code = 4173249) galactomanna n is frequently dete ctedin urine from amanda ents with disseminatedhis toplas mosis. However, a negative result doesnot exclude a diagnosis of histoplasmosis. Manypatients wi th acute pulmonary disease or chroniccavitary disease do not exhibit antigenuria.Spe cimens from patients w ith other endemicfu ngal infections, suc h as blastomycosis,p aracoc cidioidomycosis , or candidiasis, ma y alsobe positive in this assay. Thi s test should be used in conjunction wit h otherdiagnostic s tests, includin g culture, molecularassays , and histology in guy beckett a final diagnosis . TR (test code = Performing Lab TR) *[facility]OriginalMelrose Area Hospital [address] [place] [address] Penny Gamboa MD, PhD [facility] [id number] 12:20:38 Test Item Value Reference Interpretation Comments Range Result (test code = From Broth Only A Refer to previous 6463-4) Same organism has culture of * - been isolated from Staphyloc occus cultures(s) of the epidermid is same body site and collection date. Repeat identification and susceptibility testing performed only after consultation with the clinical microbiology laboratory. TR (test code = No Anaerobes TR) Isolated Lab Interpretation Abnormal (test code = 54135-0) [facility] [id number] 12:20:38 Test Item Value Reference Interpretation Comments Range Result (test code = From Broth Only A Refer to previous 6463-4) Same organism has culture of * - been isolated from Staphyloc occus cultures(s) of the epidermid is same body site and collection date. Repeat identification and susceptibility testing performed only after consultation with the clinical microbiology laboratory. TR (test code = No Anaerobes TR) Isolated Lab Interpretation Abnormal (test code = 99928-1) [facility] [id number] 12:20:38 Test Item Value Reference Range Interpretation Comments CULTURE (BEAKER) A From Broth Only Same (test code = 1095) organism has been isolated from cultures(s ) of the same body site and collection date . Repeat identification and susceptibility testing performed only after consultation wi the clinical microb iology laboratory.Refe r to previous cultur e of* - Staphylococcus epidermidis No Anaerobes IsolatedANAEROGUTHRIE CLINIC [id number] 12:19:41 Test Item Value Reference Range Interpretation Comments CULTURE (BEAKER) A From Broth Only Same (test code = 1095) organism has been isolated from cultures(s ) of the same body site and collection date . Repeat identification and susceptibility testing performed only after consultation wi the clinical microb iology laboratory.Refe r to previous cultur e of* - Staphylococcus epidermidis No Anaerobes [facility]olatedCOPPER [facility] [id number] 12:13:58 Test Item Value Reference Interpretation Comments Range CULTURE (BEAKER) STAPHYLOCOCCUS A From Brot h Only (test code = 1095) EPIDERMIDIS Staphyloc occus epidermidis Clindamycin (test R code = 10) Erythromycin (test R code = 4) Linezolid (test code S = 40) Nitrofurantoin (test S code = 23) Oxacillin (test code R = 14) Rifampin (test code = S 43) Tetracycline (test R code = 2) Trimethoprim + S Sulfamethoxazole (test code = 47) Vancomycin (test code S = 13) No Anaerobes IsolatedFungus [id number] 00:16:00 Test Item Value Reference Range Interpretation Comments Fungus culture No growth Specimen isolate (test after 4 weeks InformationSp ecimen code = 580-1) of Source: [place] geSpecimen incubation. Site: Liver: pe ri-hepatic mass biopsy and culture [facility] [id number] 09:03:53 Test Item Value Reference Range Interpretation Comments Case Report (test code Medical Cytology = 104) Report Case: [id number] Authorizing Provider: Kiya Crane MD Collected: 03/03/2022 09:19 PM Ordering Location: [address] Received: 03/04/2022 08:47 AM Pathologist: Chad Landry MD Specimen: Peritoneal Washings DIAGNOSIS (test code = b7yuvRKdYQWtzZO2TrGsWM 3220) Vfu4ght2RwsBXjmWSdQNya xIKoklWjdu90vHG9tH18MU 0oZZKvEkT4ZHCfcsT5Pit2 UBSkVZBzyMQhF413p8qzq5 gkfkKmeRC5xXwbUTAsyzol JoM8VWpwMRVybseeAIx8OS ofTDIypIJ8IMBakILuD4Oa OYYzDU7ftud8MIB6XLhdVV XnEqF1NZAwcKKuWEGewSva SQjvz185NCH9KtHcSECjic EvmIendH1rXaStWEUWIMDU GU1TZTWBHEnHY3mXMpfDGE sBYGZPV9QHIgZzIT8JQUTW PFlkEqaXN8wfFmpvDEQxAD SxFVSAMNmITTnEJCASJ3Vh BFMIUSxUKD8RZUjtCBEfIJ BqCDLTHKFhuLi1SCQmNDTo dGhlbGlhbCBjZWxscyBzZW VuXHBhclxmczIyXHRhYlx0 VDFiaEBzFDCkEyr6YXNaGA HoM28hlwrtFRV9tE0rg5aa j8RcQFdzXZT3PUHea56yOH vpuaG3LHfsUz46YQaqLGB5 MVxwYXJ9 COMMENT (test code = v0pgoNFtWUTcsBR0SzZyTO 3359) Lqi6sit4VvyUOfaFDgIJbm pSMgpeWrgm21yEE2wL70MF 6qRKYsQmC9DBJwsfP8Dsc9 RXBuJJCbeVNkN924q0wpj3 uafaJekRA3iHmmHSGvpppu MhK2CGofCRRyxlvhLPq3SG owKTHwjAL4OVNmnCZuI7Ky LGIhAP5gove6OGQ9HWumVN AuUwM6AEBfuGYwNLUnnPnb IPfxp154QSF2LiRiAQJibg XpqGsccM2zKkYcXIPGaKPd S7AwgSUztK6vzkNrwTgnJV CtyrBgZHPqpHGwsGv4cNOf MWSzFJMjbcVof8W8dSzoks 2qEKPtayJahEM3xP1sqA8i cGFyIFBsZWFzZSBhbHNvIH NlZSBzdXJnaWNhbCBjYXNl CdPUKbKsFJB3ErMeeWQftE == CPT Code(s) (test code z5pntZKxVARejIM9RpTyJP = 3357) Aoq8icj2PxbBKibSTqYVxx pGNppaJbmf77vZI1iW26KS 7fYDPxUrJ8NQInehG3Rrw4 QNEkDKAvrCOqZ543b0cqi8 iqdsMrgPN6tZafZUJwxlqd TaE4FBgaZMRynxlbDZa4XG dhEXXunDX2BRKauRHiZ3Bv GAKaZJ2seli5AVZ9VTqlFL GkSdN1WHDtdFXrYNOhlHcq JXtkq443FGY9WwHbURJkcz MtqZdnqF7aWxGaEDP4MPSa OCwgODgzMDVccGFyfQ== CLINICAL DATA (test z7kotNHkDKYuxQZ2IpYjTG code = 3355) Qft5dwe7UwzDVcuUExPAjg kQCowlLxoi89cRH0fN24VG 2kFIUdGlT5NPItosB2Ych4 WFLpVMEllLIxH937k3zke3 gvvcJcyBG8rRinOHRxmbxd PqB4KKztIEYygltfQKt6VJ wwADHhqEK7LKPyhIObT4Wi NLCpSW6zqxu0LHQ2SPdjXF UmFeI3KEAnzJIjLMVvbOem OFduf684UDX8GuCnJQLwjl BgiYeqfT9qIaHzMXF8MrM5 Ys2yNCPguJWbDZH7vEIxWZ BNSHggSFROLCBITEQsIGh5 wK65mMcno5ocjRWjULzcdI mxhrScHR75APggr7Rtflla o1HgFS2goIYfVMkesQLkri ljIFJVUSBwYWluLCBhbiBp bmNvbmNsdXNpdmUgcGVyaW lwgGM7aAYhlTKxhuXhz45g HCVodP2bDJPjyeLaMCObzT 9eFXHdIKAtqiNpuy7yXSPf u4svBWZtcqIwvePcFX02CL NopGtqu9wsnsHyt2TfBdNi aSF7LL5sOddsDZX3 SPECIMEN SOURCE (test y7frkYZrVSNiyNU1RpFpYS code = 3377) Oru2xgj2PfyAOeiIIwSXxw vXUbjyBnjv17oEA0oE26VP 3nAIFgMqD3AEZtcoB8Yam7 BBSuXEEyiYInA060q2onp8 hzbrRjqZA2mAkgUQAouype BoW5LAbqIBYlyuvqJUx3XG ffUDXlrUR5FTCfiZImV5Ty IOJyWV3lsvn2XAP9BDsbIV JqZrU6SFMarGXtXEZscYne PGnfu763CQC5XaMySGYbra LzsUvzmV9iNiLcCXHKSJGA GP6QCJNDWYmXH4zMUktZMR Bhcn0= GROSS DESCRIPTION (test u4hdoOCoVBBeuCX1WbByHF code = 8844905179) Hnp4nvv5XnlTUhjZTxGUmc aWPyjaKfcp74oXA5uQ05BI 2lSZSgJrR1IREblwH3Mzw2 GSEmTWYpyWRjF630d9ghf5 rcyvKalFJ3cOkkBVFlyjih MgT4LHjeMUTppummLSk0NJ pjURMvdMO6GRUunKZdJ1Np FNEmTK8egce9HUG3SZqzJS HvBrZ9NNPziKVsLVZzlGha TCgxk743LLB3NbXjNHJkpt J1URueIPUkF2QfY8UaLBwa WTR4PZUyJBAeIHAuUMIvXP HcYDbwboD2b8vtPLFjyFNh TEQ3GGmxwDAqUTXnRQBzYT eqLhRIIpBcEjP0BOf1MWM9 FhJ1KPh2QKETSfBtOeQxOa EsDOGaRDNoLGe1BXs7VVhY AjX8FTK5BEEtSiGjFIPiIU GcUEe4SLVhDRdzkQWfERWw QORsHGfmQBajC04tdIqfvX 3zWxQnUZLUOiDXPYLpmF9y XCQvPOghp1qlbsxpFxmkJY JcZnMyMCBSZWNlaXZlZCAy BnTuYH6uPWZjmN5shYKswp VscR81ICeam1h1xWH2lA56 WNyhqHV7wL5kxPZhQqh7nI G4WBNbYAPkdjEfEJWsR1p8 k8AbgA0vIQAqTMStVHyiXG Kmz5OyZFZyOYtce2yja0Hf y08uPeSoBJDyBVEyZWLyUR fsJUPwd3UlHPeamxZezEpw OFAgcyYbp5EaLYxpkaEowH NqQHt8AODpuhIqIj88NhGj WcIotDCla2yjxDvev6PflV KxJG68SQTctGLcROL8NC7n fVxwYXJ9 MICROSCOPIC DESCRIPTION r5orzPOdVSBtqVB4XjWoWX (test code = 3371) Hzr4dnv4CsaWHamIYnOPkg hLMetbHtee49uMY8mU00OU 4aUYRyMlB4GYTaycB3Hfn3 XHVyNBSgmVIjG119a0pva0 geomEdqZK1gQvsCXSudrlt FaD0JAmrMWSxuvztJLy6GE bsRTVeyYV1UESizGKvZ0Wk TWDtMF4ldnj7GIU0XQwfVJ LyFzN1YHGrqTGyOOMgnSvs YDwyl195QZT8PoFvAQZepx EvcEmjxE2nEoSeHEWNMYDn c2OkELJlVNPthfkgFDSzTT Bhcn0= STATEMENT OF ADEQUACY Satisfactory (test code = 2757) Gross assessment was [facility] performed at ([facility], = 2777) Department of Pathology, [address] [place] [id number], Technical component was [facility] performed at (Formerly [facility], = 2778) Department of Pathology, [address] [place] [address], Professional component [facility] was performed at ([facility], code = 2779) Department of Pathology, [address] [place] [address], [facility] Test Item Value Reference Range Interpretation Comments Case Report (test code Medical Cytology = 104) Report Case: [id number] Authorizing Provider: Kiya Crane MD Collected: 03/03/2022 09:19 PM Ordering Location: [address] Received: 03/04/2022 08:47 AM Pathologist: Chad Landry MD Specimen: Peritoneal Washings DIAGNOSIS (test code = n5ybsTOvZPDxnTW7FyDyFO 3220) Tht3eyr7BsdMLypAGsKIsj oKVcnyFqua27mVQ0rG45FO 1vXEMdLuS3FQDbjlD8Gep8 GWAoURVlqDFmQ403n2puj2 luspRbpZU3bKyoNRMbgjef DuN9UPvlXCMbxcukVMo6ZD niISUsmAZ0SGRirWPgI7Fz LLZeLZ4ktbz1AWT6TKjvVA VyIsJ4DEIaaMXhWLZcnJim WZzao189CGX3KmGlNXXtdr HabDbscD4pZyXqISQAKGUW VP4ZVHMPPOvBM0hCUvnVGA cRZBJUR8AJUlSiMW7HNBRX PBoaYqpLD8yzPyhzPONdIP MqDXUBMHhMWHdDCEIOE5Qt ZXYQIJxYGY6LLEfdJCLgYM IpBILQUZHlmNi5ERWrPECo dGhlbGlhbCBjZWxscyBzZW VuXHBhclxmczIyXHRhYlx0 XQFyfGGfOFHmRqt4RWMoVW XvP89qawzzKPO1tG3ht9vd a9TfWKqiMLX4BZYhe09lCL ezhvU3OJpgSe12HGwwGOK1 MVxwYXJ9 COMMENT (test code = d1jcdUGoIVLmbDZ1VaBdSG 8435) Ims3wgn8FxvWOodHOrQMup nDXndeYbcy49bTM1lB80BQ 3bRFFgSvD0VLCiyoZ3Oid1 SEMzIBJkuFGtQ904p7ema2 qybzHdoTL9rJyzCIFdyvco IiC6NDgnIGQwuogiXTx5WV jzANThuDE2VCNimQEfN1Cg GDByNQ9fmjs5PGR2GVilHT QpBtW8TPJlyLXwXOZhjTxm VWvdx548UIV3XlRjPCZguo VsaEohlN6vLqSeDNZNaRSx J4IkkRNbtQ6nsmVvdMqxAW PcosZeGXXczGJhlFy5wTMb VXFaMIYsfrQkh6G8kBgiez 2sVZHfalOkrGY8cX5ynQ3v cGFyIFBsZWFzZSBhbHNvIH NlZSBzdXJnaWNhbCBjYXNl IkCCByKsJDD8EmRgdDUxpZ == CPT Code(s) (test code k9cgpGNxQOMbaWN6TfXhNY = 3357) Umk9hbl2ZsqPDqdQCeOBra zOBbvvKuhu20rKL9tO07UL 2gJEZlVeR6YFMguhC2Nfz4 VIPvYJBtuKCpA283k9pkk8 tsesLrePI1rNkcTIWgenez VhV6HIjvBCGyrbazTCg0NR bqRRIbwPB4XWQssGJaZ8Pq GFPyCR8rhyw3LUA8RCvqJB SaExL7COKfdAOyWZCcqKvn KLzez420FPY1JwMkPDLgov PpmAbcqX6uPyUsZID0PNDk OCwgODgzMDVccGFyfQ== CLINICAL DATA (test q5nadEHzERClkKT2HrLoML code = 3355) Svg1hcs0EvfWXdsMAdHGbu yVNattEwwl41fFY1lI98KP 3dQUWoVlB1KUKzlaI9Pxa1 EBVmWJQesMLtQ816m0qll4 vfntWcyTU6vRabORRetkxd MbJ6RFpwTKPcydvtMKe9NW tgMUPszJM5QWCgxASlA9Xp IFKdVQ1nvda5YKI7COhdBS TtRcJ8GMPfsCXdCUMucKdg VUsul460IEW3PwGbLZMysi CzrJeaeQ1eSmPoLDU2MfH9 Mc2hIJUwcTRaQSZ0hWUhCG BNSHggSFROLCBITEQsIGh5 mE61gYvko3javTWiCFvvcI ckpeApNL98WYdkp0Hwpxbb d9GwUP8drZHcPNdhtTHogm ljIFJVUSBwYWluLCBhbiBp bmNvbmNsdXNpdmUgcGVyaW nvzRG3rQFqaUGzacLsu10e TSHxlG2oXKKbhpRtYDGwhR 4kIDIjNMKddqCnrm9yQFGb w1rcSXTeatUypcLqLA87AQ XbtTprm6wnulPii9XjGuMf oSE6MQ5vVwpiDKP2 SPECIMEN SOURCE (test r4ftfEAhENMymLX1QiXpWP code = 3377) Dno5brf6RnvMVoqKGiANlz fIJgyvVrol34hRY9cQ45YS 0iBYSoIxZ9YQVufiP4Wul4 WVExJJAmeCQeA981r3wqk0 wkuiHutEN8pBikUHOhbgfs LdX6WSrzUEOnamnwUEg8TF kpSXFnjUP7BWKhvQKoV5Ho RDXfYR2wdxe1POB0FXwbRJ VnKmA1ZKOxkUArMSRklBed MSdhh015REC0GhWgIBBxzr ItnAxrfI1kKxMiJAVMEHRR ER2GZWTFFTqPG1pJGpwOPY Bhcn0= GROSS DESCRIPTION (test y7ebuMVvENLqmRQ0RbFxRL code = [id number]) Mxb4pqu7AgvWJxqDKlFIis bMVwqtEisj78hIT1hE17VH 6zRZAiCqF1DBOvzfC6Jmx3 YXDpSJTwxSVnJ163i6zpc4 sbhiHzdAG9cGnbPMPcsety IdJ6GTeyLGWbrnmgIZd5VM orWRAjmXS8RICvlKZyK3Es CNPkIR6imhd9HLE7JIysHX QvDgG2NMUmxEVdLISgnGze SMvzn975MTR4GyWnHUMonh I0MXsyPCAoK2CwW2ObBDge ZQC1AXBlUZRpPAUqLPLuNU NjVAmcftJ5o3yaTKIliTMc IEN9TMdcyEErXVDlRZHfDW sxPhSJVvXlTwB8CSn7HZB4 MkF2HAu3AMURYoUhOePjOt VoKXHgIZMbGVk0HJk2ZEuJ MbU2XXR7THOuHsIzDEZaZP JcDEt3QAVpXVgieVJtLSGz NNHsBGuuJRlsV13ckPwqsA 6cFaVbXEIAFzKORIHyfB9l QEVkNTlng5oourkpXrgiAJ JcZnMyMCBSZWNlaXZlZCAy ThXeIX1tAORhxS2jdWBcpl RizP49OMcbv8k2bBC2iH39 JUyetKM9jT7kcDElTdq4nQ Q5CVJhWPLeneYqWGQqZ8f0 h6BffG0sFJRgGXKcMTuoGL Bug6OlXREwNMfal6nyn4Af u42kXdDdRIRyVZYlONJgBZ inOERbs3ZxJPrezhBkfPgg EPCyplDkz5KiHHfqewRssN QvKAz8OOCtzrBiQb08JbOf QaNksBLfl5ptxWbzd9JvpB RbYS29AWOufKTbZWS4IA2q fVxwYXJ9 MICROSCOPIC DESCRIPTION n5zvqZWqIPEkiEB3UkDeJS (test code = 3371) Vgx0foe4TejHIsxUUaITwd mRYvrbNkrk53pBX5bZ39RI 9nEWMlGpX9SQCwuaN4Fzc9 LLRoEBBekTQpF292j5nrv0 thtrKbsXX0lRuiKCUotxzr VoE9YIurJMLsdhjrGTq5SO uqWUMnuKK7HZTteCBzC4Vj VHIlDD7urou1APM8PZuqIO EqGjP2CEKgsJNyYCVpcLkt CBphf003ZBG1MvVjGTIvvn ZbmPbhlZ0aRnCpFCNPJPVh i8HlPBQpFXPmkcwiXGPtAY Bhcn0= STATEMENT OF ADEQUACY Satisfactory (test code = 2757) Gross assessment was [facility] performed at ([facility], = 2777) Department of Pathology, [address] [place] [address], Technical component was [facility] performed at ([facility], = 2778) Department of Pathology, [address] [place] [address], Professional component [facility] was performed at ([facility], code = 2779) Department of Pathology, [address] [place] [address], [facility]53Medical Cytology Report Case: [id number] Authorizing Provider: Kiya Crane MD Collected: 08/2021 09:19 PM Ordering Location: [address] Received: 03/04/2022 08:47 AM Pathologist: Chad Landry MD Specimen: Peritoneal Washings PERITONEAL WASHINGS (CYTOSPINS AND CELL BLOCK): - NEGATIVE FOR MALIGNANCY Reactive mesothelial cells seen Signing Pathologist Direct Phone Line: [phone] tronically signed by Chad Landry MD on 03/10/2022 at 9:03 AMPreliminary result electronically signed by Chad Landry MD on 03/06/2022 at 6:35 PMThe cell block slide is paucicellular and is mostly non-contributory.Please also see surgical case: [id number], [id number] y.o. 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 Peritoneal Washings.Received 2250 ml colorless cloudy with tiny gelatinous fluid; prepared 4 cytospins and cell block(A2)(collodion bag) - the cell block was fixed in formalin at 14:48 on 03/04/2022erformed.[facility], Department of Pathology, [address] [place] [address], [facility] of Pathology, [address] [place] [address], [facility], Department of Pathology, [address] [place] [address], [facility] 2022-03-09 16:41:12 Test Item Value Reference Range Interpretation Comments Case Report (test Surgical Pathology code = 104) Report Case: [id number] Authorizing Provider: Kiya Crane MD Collected: 03/03/2022 08:33 PM Ordering Location: [facility] Received: 03/04/2022 10:11 AM PERIOPERATIVE SERVICES Pathologist: Nina Kumar MD Specimens: A) - Nodule, RIGHT UPPER QUADRANT NODULE FOR PERMANENT B) - Peritoneum, LEFT UPPER QUADRANT PERITONEUM BIOPSY FOR PERMANENT C) - Pleural, Right, Right ParietalPleura Tissue D) - Diaphragm, Diaphragmatic rind ADDENDUM (test code = d1jakOGdZHXvaFA3BhAiFXOj 3381) y8pmb2GaoRIezXGoAYrsfOMp azUlew38lYC6wW79GP5kZMOd VyO2PBRffeQ6Tmn4ISWcNFIj gOOlO206f7xzh9kycgWorZQ3 eJjsFSIopuxjUnC0XTyzWVPv jucoOGo3KFvwMFYqfWX6HOXe xILyU7VzWISkCB9tlpw1GVN2 AMzjTTNxHhP2ULSzaXHoITWy rJxwCDgnh035MZD3VoPvFHAb hkKkyBhpkG2dGgFoSGEVZWZE F94aTe6BNBHGCZCLJYZZKaYH HnHFWMVPXyAeX9WYU1aFKAGY VEFJTlNccGFyXHBhcmRccGFy WOOvFMKjIVaro5GqxN2lLc5h IEdNUyBhbmQgQUZCIGFyZSBu IKjrfEt7RTUkn5OiGfLaA1Vf HVDwJWCkB5sqQGJky4MluCyy zl6rc3ZmOF1aj43uJNNhf2Zv K3SlnaEnjI5nS70uchDkOYOk r61fz0x6aGQxqSs1gRCgmkAn gmWwz6Ufu7ryE8aatONalbPz b36nMQ0pQVOxHMEyld5= DIAGNOSIS (test code p7wnzVSnQFDsb2zkRKQnnNAe = 3220) ZzEwMzNcZnRuYmpcdWMxIHtc cnRmMVxlcGljOTYwMlxhbnNp TQKwxVJeU0AozhkoDMjdOC8z SF7zuZwkpERuzZYrTLHjWuLg l0agr453xLCxx4hqFEKIqpgn vMa9dOrrM44bw5S0JsapP03s wHZtEQP7ZKFpVGVwnJTsHVTj CRZ7IRKkvVLjN5pwZHXkSX0p lcsrJKwxZKamDSDuqOU0YWPy kEOiH5RaQDYgIYlyUJIhibm2 RjUyVe3nlPTujWgqCYhnAQUn RLFfHNruHULgWbHgTP8cQXKL SVRPTkVVTSwgUklHSFQgVVBQ WVUtRRTDCHDUDtCaAITFQ1JA WTpccGFyICAtICBORUdBVElW GSLIJ0DdCVXRTHzEAY8MNJxk DWXexHAqRFdgYVMrGq7oTNTA SVRPTkVVTSwgTEVGVCBVUFBF UiBRVUFEUkFOVCwgQklPUFNZ TkqvJMFdJJ3zEV0UH6HTDWWK FDOXQtIWVTvBQ53AZoRUYPLu clxwYXJkXHBhciBDLiBSSUdI VCBQQVJJRVRBTCBQTEVVUkEs XKZFQhUVEYezIKvZPRMKH7PW YPh4QAZrosStSHYwRoIYPn4K JoKOOS5OBDVCNmdqSPnDSTXI GXysPr5nKycZGuuTIMHJM4FQ RSBTRUVOXHBhciAgLSAgTkVH BMEYJrBvGg2RJE8ZIMkILgSQ A1bvyHYbBLXuwpLgsELuQQFo IERJQVBIUkFHTUFUSUMgUklO HJwbTlAZOZPYGB1MFgfoPKYn BC1lHVKXUOYCEOSOVQLOQpbA WiwlCS9BTDJPETORUWEEW4ag PPOeIB6jVABVNT9JFKKLXXUV TFlJTkcgTFVORyBQQVJFTkNI DW2PIKlRAOngQuBNR0BJOhQp T9tTYswMM8jaHNAjFN3lAK8H R0AAEXYYSHDPOmKKMIaYJ28U YfEUBBTfyj33AMH0ByXdv7H0 AOL0FFXfPXMeq6htAIZeeUFj ZzEwMzNcZnRuYmpcdWMxXGRl LmKpi5bkk211nCRzz8wmCMJb AaL7jJMpHQIspCCfX252SKGq ZZgun4ctz2GqARUkpRKiu0O0 UMMZdvorvIn5bMikT34qp5L2 OprwE5nnYNJzQLWvQ3EwHL8b EBFwKqt4IIG3ZGP4TDYjOYRd N8OtZT9pSZMrhTKySCz5l5wa rGtkGQMxPIS8x8dpZNhaybTb MX6biy9dpFx1x0immtRxLQYv KKDzdAXOFWLxJ1DyiEouWj2x oIn8uHmiGgumLVF9Vky9KQ0b yq60unw4nSlaVPHsalvaPlL0 QWtkGAVnljvgMJz0OQqwGGLw fOS1BMSauYHkI6NnFFNmFB6d gkc6QNS3UBzkBVOsYqC0YOHt tQLkPAQhnQdkINnwv126WQX8 QjWaMS7lD8Enm0Q9zD5urQLj QAZgkNMgEjVzHINcab3qjWCn OPzyi4YlVRD1wiT8wMRmxPGi RJIbKfZ0SHunYM9crx12OUQx TKY3hk0ptCAlyMhoxmLwnELq YRofZ5HbQWFex991ESIbR6Hx KEPiv0L7vuIzPpCrNFOmfOV9 vsR9EBTuFT8ilwvik9zcZQvz OLexBODsccB3oqQ5VDSkiGGt N8WxqB4lGMHzPB6opszia5gf QWP2VNsdCTSzPFN1LeJvEPOk f0Jvelb7HlJor8AdiVLaDXbs Y02ln455YUYolgXwR0whrNIg xgqksNCrgeocSHmobtN5UVPm KLodhkyjJSRsKIfbQ8mhEqCa VEDhoLsyWOvww7QiCRWoKTWo DbQxgRGyEKLtZjb2QUJyaZAk LFWuIiBcR5cemskdQjDTRFTv n8xmY4ruzXDLtOOuZ6IlWAix rmHaMTadJTmsYmPtRKv9XW82 VwGtEZIyfy26 COMMENT (test code = r9vuaNAtNHChdMG8WzHyBHSc 3359) z5slg2HjmWOvqXNeEZtsgMIe xyKlhm75qUK6zJ53JJ1pPASg WnX0OIKtufH2Ips2AFMwTSIa fCQrX410n0ykg4fkvcCtiPU4 tUotFDCyulpnObD8BAcuTBMe evqyPSl8ZPsiLWAoiOB5BWSx zVDsU5KoCTKzGG8qqge5SXH4 KHgnYVJpUfJ0HLRfmHRtKAUq wYxtOQtnc492LVJ9KoHhVWTw dpDywSeaxL2cGlUpERPPXyWj I4MeI6qkpJVoaCKgrvZfKNGv JYTatqJiwiahSG2oMTxsyMzx CfJbpuDps2I6XDMwsX6bXI0h CCRrEQ5alH4hZNGgokekSXIl XHBhcn0= CPT Code(s) (test t1nobEJbFVKxmAK4RaYuKAXt code = 3357) l8equ5QqwMHkkAOuZJtbuIDm qnOgvc58fCV4pG24PQ8cKRYx TlZ4VDTjgyU4Ehc1ZIAzXWJd rHKoR160o9zhd4gpbhOppKX0 lCbwFXBoavmkEgX9RDroGHOz ktqnMEu0MMkzBQSoyUJ3YWJw jCBgM8DbZBHgAT4izkn4UWK5 EIusGPVjLuA9VYKbpSSuQRYx gBqdTRozc682MQB8UhHhQWAy ukAyvHdxkT3aMpKeSLG2EIFv YQt7VDCnemX9CHEkSoupZIDv cn0= CLINICAL HISTORY c4jgwQIqNXAebWZ0MjDzBKJy (test code = 3356) v6fdd6AfaGGjcYDzPKfydYRz olAser41jMM8kL41WC4xAUBy PjP6CJEfdhS0Xcq7EZXoVFIm eLPkQ954n0pug6kaquCndFW8 yGruIGHiuiciWeW4RUtqFPPs uctpIDp3XRvjRGZurXK6VPFr cGTtH6ImDGEdSU2dxul1FZI6 HCbnZTBoKxI8WAJosSPtNOGi xKarQJlky915UVW5ItFhJEDy jgSrfIawcK9hImMeSWYAdTC1 LC4vSPUtmr0= GROSS DESCRIPTION a8adlHIdXKNlvQOIPYTpS1kg (test code = cpLeAECglGEmL9FzhjtjERlb [id number]) NE4tDK5gvEiavKStkONvAO8D XGRlZmYxXHBhcGVydzEyMjQw EJYexPTygWS9CQDdGW5jvmvh NSrpHZmhAPVupmV3SVDegQJa V2KyJLWzZQ7nulcgBPP8CWam sW6nqdQPRdfnAu9wnSIffAtm ZjFcZmNoYXJzZXQwXGZuaWwg WAShYFk0kK6BFmolRDH6DDAR CutlYXEeII4Qq6gjUOIrwLYz RAA6ZKcasIGoEXOqGKGmMDh2 ORLsMPvioRPvDI8ofOmgYaus uKqab5ScmOQiXUcfMUKbFDHc CDalLPDiVW3GGaGuECX9FQl9 KPccJId2XLq1JL0ITbMtHMCz HIFrYPV0MHQsLSo4NAjgWA1S RMV0OrW3VQM9IKN6EUQ4YEOl XHQgMiBcXGYgQXJpYWwgXFxm fBFwNI1liXnduYFqbcKUSiGQ z2E8qKDoLNLloaDMGzmvdHie TmVzdERvYzEgDQpcbHRycGFy XGxpbjBccmluMCANClxsdHJj oOrdlsVpXOCwU5BdswFuMCEu BIGwRHbjXfMuVFPxl4n9fRV2 iSDpqPF1gBEziNxqPlImLB2z hUWeWY6pRMkuBBzghdOaf6Nm GV80tZVqfgIwpfWsEm2fIPMv ZSAjMSIgaXMgYSAxLjEgeCAw CtbugISxZuUaV55rcECdaJ73 FNSyvmaoHZMglI5uQTR8lLWk rAYgPgYtP08mniTsy0TtLmHq ZIYqJtzaY5kou1MmhzseGtWz NL0jkpUaSOS5zHS4ZKbeRYXl jAOcZ2NdSQ6vNY9tTGtow1Sr PXvwn1kjjgVeFUHiYWtfZK47 eKCcWUEaFUKTdMOub5IuN5tv OZ7twDRdUS82kMKcqNekg6Wo fCi0cAOtAPtdYTTsWx2WHGWh RGsfYGNsgKWOPVQ7PG2nWUfu mBWokhsaEHRkY1ZdD1OkkwZx oLWnVHOhntHbg6xhVQJ7SRWm jHGcwKMfAnSdItqsKYS4RYk7 JZbqAITzL5AkQ4AgGPpgETW7 MTAwMiBcXGRiICBPVlIgIiA1 CEn0BPh0JsO1MKp6AWPPGbCc QyZxRpJlSvIxWQEdCNg9REv3 BQqMPiB0TPC3ZFYsGhFiOKWg JKNlPOj1GXJfUPppQOGjmFOn AImgEuvmCUtnX52xCkGpJzmk tZVxhfNTEmWNLGAdqH1cAPKf HjxwWVJoEJsuEPIlA40gh7BL o6NlCP7AJQa8adGvhxkbnQ6n BWZndfVmDSbhsXPmP4hcOwHc MCBSZWNlaXZlZCBmcmVzaCBs YWJlbGVkIHdpdGggdGhlIHBh tYbefwAzR9M9owBzCG5zVLLg CRMxD2UfZPYtP04hNMDqdB4b OBQhPL8aGSOrHTR6OQOifJGd ZXR4YGKsLD82QFLjogx3c58p rS4dNRceYHSzGE50SZtjLD15 KBkmHW3qOGTzPRtqtiXswLpq pqA7KDten1dat4zttSKgZtgd bg7fDZxht0ExVLCcl3X5JIZl esCwjPSisFH5xTMga4FfT8io GF7kvYRwnNAwWPTtc4BxaQLl IGFuZCBlbnRpcmVseSBzdWJt nJU0JDCrvL1eXyNpKIpvkKbe vB3rGASaX29bx2RKk4YtYZKp DYfnv5aljGpfj6ItrNYnGSwj AFKfyDDgOVftoG9rNzLbx2pd eMy1ORfzvpZ9JHFnzg0RHjxq VkdefZrmz3EvuLPoWPgnHJMt EHYaTHwoFQHoMZ2CCaOcNSQ3 SKh8XJycXFl8MDc2HK8AVvOk PBLqUWHoSZXiTVHwGPf2KLcy JJ7GIWM4ZoM4GSMrLFZ4TZG5 MSBcXHQgMiBcXGYgQXJpYWwg TUpdmLJeWJ2ooWrcafA1ZXHf YWluIEMuIFBsZXVyYWwsIFJp X7x4JhxhWZYpGSmuPWBwL87l q3DDd7MqLV3XPHt2xfKbdxbp oO6hRYQrswHeRLnaqDMnA1fv ZnMyMCBSZWNlaXZlZCBmcmVz aCBsYWJlbGVkIHdpdGggdGhl KDMnbInqglToR1L0jyVdDI9y BKPnULMsQ1EnPAEbU02aZEJm iT2hQRWrGO7hGPCqeQF7ktKy VVJaO6m1LrMawbIiWGGnIWW9 KWIhEiI4HKEyMQQcrMSaT2wo KHdbzLGeq7TvOfZgxtVjS5Qp XOWrlJnpH1PhOU9wYJotxTts tp0sdlQ7MQWpUxEtpKkbf6Ve LiAgVGhlIHNwZWNpbWVuIGlz ONXdrdatlMd7LKPjY2Pbv11p EZPaumDgyk3aG6Uvd3DomRLj yW2iyyQyktFpjRVfupReDyii TF9bWRWitJDyg2KugGH3tMRh IGOtF0Fdl32hHZSjRQDzqCFx pSU5PDDdhX9mOoQlRtHpSIfq cEnlwM2hPLVvQ09xa2LKk4Vo KWCbRUbdh1cpgLcda6FgiBIt UBquBVIhbOQuSAizhH8lSjHy k7yxmDd4NSaeixK0VAGghq8E EceoDyjidButn9EaoLIpLViv WGSaICOpLDxwKRGuPE1ECaUj DIK4TPn5HEumQYw3YTt6DE6K OeMbWVIcQGTpEHp7LTAgVId5 WHosEM3PDJV2XyW9MWJyOlX5 NSJ7RJJhGYTgGeNdTGVjUFCg JRruJCzcqVQkKP7slLgmzxE8 XHBsYWluIEQuIERpYXBocmFn fK4gqBWpES8QDIFbjGRSKZN7 IB5sXPJWUngizCEiMMAktQhu MNxmbO9wMW2PGLc3dtZpZVDq PjKfMkXlWKw5SBOvJqVdj0zp bBUnSEuiEKG6fCFtGXFvQRXk SQCsQP10RKrZDZGagnOeSSil bWVkaWNhbCByZWNvcmQgbnVt YmVyIGFuZCAiZGlhcGhyYWdt JiXtawUtCXZyADK7DZOvPnC5 CGIzQBQonHGeM8quYZhfrLCb k2EiIsRzbsDuR0GpSSJaybHg PJZivusfOtfyhk54xkW5aQTg uITzIsCuL25smaYgXZqypWlf KBE9JRQkQRNkaPGiA3kqQeBi VGhlcmUgaXMgYSBzbWFsbCBh qN39wjRvu8ZiCBs3OQS3VATi gpV9lKGbj8EfZbYhYM4bQXUt CGVvrHFazV0euwDudcDvEXIr EAijnNJzVWO8gW4fYZEoCA3z MN8eHHvch0MhPJgvk3camsUx TXPdGCunQO46dQEzZCQlRNLZ REKsEVEaldIqgAd5NFTfGOD9 gD3aqsOicmRvv8NmxHh5eJIw WBirTFZsLKDcLyvphD2hNTnq oS0pRCZrNUsxAAGbL0GcxC6g SB6SHpbxEWDiCZFFL9WuK38V ClxwbGFpblxlcGljTmVzdERv EhMdyGgxzL91XTWjhTGfIBU0 DJ4zTTRmohexORVcIMXyXIF1 YVwigC54pHXgEMUoATIqlKTo xL0LWYLmHUZ6EAzrsD06wDIq AG6RVXOmQEP9EALymSVySOM6 TK7qgR9ZtU== MICROSCOPIC x7xxpBLuNMRvkIA4QaRhYMNx DESCRIPTION (test x9fls6PqiDWczDNsZSyhjZTd code = 3371) kqHlpv86qFD1eV83KA3jRPLo EsX8FSUhwfD3Fzl6HEYrLCOr bCLtH944s0zfc9etfhDpbPN4 gRkcBTIcvpjmVsO3ARkbWFCa vgdhPIe5JJajZJStjQJ9NLYf tPJdI1CmKJIfMO6zkqv2HYD0 LSecPUVhNhI9PJVtzLNuBSMd kQztYCurk107KGC6NkEgPVKe osOyvKhcjV6kSjYcVNXJRZTh b0GvPUPvAIZbmveqXZCmVLKz cn0= SPECIAL STUDIES (test j5zyiWFbDKQud8ylOYZaqFVd code = 4746) ZzEwMzNcZnRuYmpcdWMxIHtc fiSzGZqia3NlL0JyMoGsTUfe bnNpXGRlZmxhbmcxMDMzXGZ0 xgAePFDwQRidWQJuIQzhGb4r fINfyDrwEuYtUMLkt2zyoaEB oedraUg7u5peJQNvPuG9nOSh DZzhV5nhntXgnGUxH5LkiSJo zTm4u8mlVeNjXuJ3mKXzXVbd F8bzmxKauRJuVCDjOJk5lB36 ETHkhN8zgPGtNSckiqYkApQ3 RJdnHXIhZnS1BEGlvGBcVXJx B9nnLQPiFQgfZXXbKBvkfXEd BVC5wWwpu3L9dWAafETbfUgz BwRoFfMbKoAUq6NaEBs5dCcz E3FuOZNyZzS0oRVhQCXrPVxv HPRdJMMqbsA8oTdyajFai78n eHQyXGYwXGZzMjBcbGkwXHJp KDPFz3EbxLdePGQ2gFs0jStt TdtxGMO3Ufg2YJ2crb62gas3 hYpaFMQdeavvLoW4EZymZHWe wadeNWu1SXzmSSPzlJG7MHQa xRZpG9VnOALrJN4juoa5EZC2 BHxeAIUmDhT3TJCbrWDkXLTn uNndKQrdb058VOC7DbLgCG8q W6Ded5Y2mZ5hgJLeBXGxsPKf ZxYrQIIdtq9cvYYePGqoz3Jg RBG0zwU2oKVwgHOeRTGwDM62 Aboyp2CnMigey3GhM50ndTP1 XBdtv9jrQI1fCcC0ywNpXDtp t0parY3pGaY4EBijOB2mPE0e NRIvaB6spsdvAKOuKgQizdqj XDOdbKfsxaQrKw1rzSdjKHT6 FFupZ7iyrS4iQpK2CKyvP3kz kB3bDWr3GFjhwHA0IDRxdW2r OD3msewdc3jsCGvdWMdfIDZm dnA0ntN0RWPywRDsE9NflS9n ZHNnOW1zqofca7heZDT7XGby MUPdXNP5IiQdQQKgv2Kedku8 FsPex5IkiRIfFHmnY54cb534 LKIwprQlB7pjeGUuuiyibFRl iurfRQljdsZ0MSGzMPRvIKlb XGYxXGZzMjJcbGFuZzEwMzNc aGljaFxmMVxkYmNoXGYxXGxv U2rrUbGqN3OmETGzDuInCEbp SLwhwBOboAIxsQZ0vU0oHC7m GBPylVIkN9UdAFNvsfSgqRJf NUD2hRUvrSCwTW0oWUyieTIa n2uwo9IfW8qqxZqbsPG5OJ6a ZSMhCIWnOOjrd0DffU9hWsxd bGFpblxmMVxmczIyXGxhbmcx WRAtMSkvE1lpGgJmRGPxqMde QBzfi4GzUVBgHIHvRfwhxsXy HZn5mtQtYJVlldvrREUwuNgd pM8kLmRrGuYvLsljOZ6zVYTb A5dwlPGuNXRySEHrV0boPnTj yN3joAisNLoxOcBpRfHfDhCS y158aj3cQFNpuQFhukVUsFHe zO4rJOkzUUvfMAgwaTSdDBie r1fjFDSht7i3tBWdRBCtscMu m3nkEOjafbUaBXRzvTVtbMMq EPTfz28bCQtmbEziiXyvSFWj e2HhdDdvs6ErJbSmXYipl3Kj S48orQAbbJTnmBkwZVWwyxMr ENQgw34bv4cwZLMfWtI1qQFl iLT9lSCzmONxv4DitQbiNLVk s7mrJSKnow3dklzyuMRix1Kv tU7flqncRUotyGXdtoQfHCCz i9j2aGMkIGNfXOJjUTeixKa3 EDSbb818yu6mjgS9bIXfPFS8 YWlsYWJsZSBhcmUgZXZhbHVh dGVkXHBsYWluXGYxXGZzMjJc bGFuZzEwMzNcaGljaFxmMVxk YmLjCPLfQTsiT3coGbMlX5Cg IYCuLaXoxMEiP1tmfHCzPSLx YWluXGYxXGZzMjJcbGFuZzEw MzNcaGljaFxmMVxkYmNoXGYx ACckQ6zrGeEhH7BuNABdCiKt IFxwbGFpblxmMVxmczIyXGxh pbukWWFbZWqyF2zaZdJlLTPm gUiuEJxvm2YaXHRgXMSeMdxj ocPjVTf4bkKtBVAxkgdxoAXx blxmMVxmczIyXGxhbmcxMDMz CMkuH6khTuEfFQXtmQwgJZoi j4EtWLUmEILyResivlGzSLkj oZSxk0ech8OgP5kwtEvuuLD9 XVTxS7pbpABxvRM0RBI1qZ8z PXdmewReSUJxp9UsKAYjDVXt XrI1zK0lJHV8HlCMwPcoWMTk YWluXGYxXGZzMjJcbGFuZzEw MzNcaGljaFxmMVxkYmNoXGYx KEokC9fzRfGvH1CeVSBbVcKs bXtcMWdsJFx7MtjrwFVkylgv MVxmczIyXGxhbmcxMDMzXGhp O3imHeLdGETemUwiOHgmh5Di XGYxXGNmMlxmczIyIHMgTWVk fSRqrSWBLX06ZXBtBCEvsVaa hL6twQASUOMddyZ8a2W0XFgx OHWvXWt4LZvjgvClWKIpiP9m PNBrJB7hXHv5yrTsMWGhi8Py GJ2gMVHeyERtVGC6YIAir4Dy V4Pdg8AgFRIfXHEtvw8yhcCt SiQBwEKoEYWjcp38SNWqPB4u A2tgIBVbODXgdiTlyTXyb6Ra AYIviON2bFOeJQ0IEaPHv14a IGFuZCBEcnVnIEFkbWluaXN0 zxW8zB4aXgVHrIFpRbXSWCjv rfCrZXFsqv0qweKcWCClBOMq q6JxhVJgiVFgkzMhY3Nbg0Gw NRBpgh70AMhsrYUjav23EP2z N1Sfp7XlvX8hVUmzUWWzi2Md lQRisFYcIRWaz3GzB2piolze EUugbFHyhB2mNUPtGNk5PYWo s1TqCVAqz4YzUrRkopItYESc ABRjJONpoA09XZP1hXaphVan wnWyNF7nYZMmikBiQTAqGFAx kV4kAGanrlNeFIAiubJ8s1D6 ELizLUFkjuYiVotzCRM1orNq npY2hPIfO4iwvwttWDcoQXUd e5RocW4rmNXMfSHze0RczSYi iUYCaGMiXX7pqfDuBF4pEQN8 ODggKENMSUEtODgpIGFzIHF1 SWmrLdsjCRU2itNzGLWws8Rk RRzkQ8cnS78ffErqwDy0aGLi sHaklFWnfCNkRQGfjzY5t5J2 ZEOnm9ZirzlvNCUxDZqrZSLg XGZzMjJcbGFuZzEwMzNcaGlj sDbdQrcaTlJsZAVtWTflL6ot PtVeTyAgQtocORK8sA== [facility] [id number] 16:41:12 Test Item Value Reference Range Interpretation Comments Case Report (test Surgical Pathology code = 104) Report Case: [id number] Authorizing Provider: Kiya Crane MD Collected: 03/03/2022 08:33 PM Ordering Location: [facility] Received: 03/04/2022 10:11 AM PERIOPERATIVE SERVICES Pathologist: Nina Kumar MD Specimens: A) - Nodule, RIGHT UPPER QUADRANT NODULE FOR PERMANENT B) - Peritoneum, LEFT UPPER QUADRANT PERITONEUM BIOPSY FOR PERMANENT C) - Pleural, Right, Right ParietalPleura Tissue D) - Diaphragm, Diaphragmatic rind ADDENDUM (test code = [id number] 3381) b5jov3UjiWSjbEUjGFrxdGTm dsXqhe06zIK7uO01JP9lZFBz WkK3VTWkmsR1Ger2OOXwRVBo bTGlF921k0itw2buiyCnyZY1 pNvdQWSmbyqaAaA0FXmsFEAo wmbeUSo8CYokNRClqCA1GYMc eFMpK5WaRZOsOS5eekn2SRC2 YUmaHUAmJxI6WXOdpQTbVSQa wLhsWQcpp143AAQ9CcGvQXSl pdAmyEznyR2zYxMjQXPDJOFQ X65nWy9XRXVQCHLJPLWLQbZK TnVUJBHHOlMhJ2CKX4bUDGJC VEFJTlNccGFyXHBhcmRccGFy UJFsFFDhJMgqu5KhmM0dSt1f IEdNUyBhbmQgQUZCIGFyZSBu MPrtvVl8AHOsn0ItAqZeW1As QZMsZRVpD1yfKNFjm4XrdPny oq7cm3GyEM6qu89nDNDoo4Wx A4ZlmiZxaN5wG12evfYyOVUr a20vy8x6aABhtPf6oZAtouOd ayFwn1Gex2ubC0heoKNajfJh y10mHW7jVZIxSBPfyl5= DIAGNOSIS (test code n4matZTiNWAut5ycSCCtuPRl = 3220) ZzEwMzNcZnRuYmpcdWMxIHtc cnRmMVxlcGljOTYwMlxhbnNp EMCuzQRyP4EkpfqwEAayCF0u PT9uxMeasUAdmBQrWAFjHwQu o1wrw823mYPaz3kkWRFTqckv oZl4tRscX99ck0D4EtjxU97y uBRhXYN6YKIhASSluTPoJVLo BMJ0GBGguYTfL7tjHFTxEI3o mtrbIHekHOucUHOikJD9MOEq mPWcR5EdBEJnCLwfJSQzxog7 PjOqNz3pfUAhsGzdEWpxYIOr NJRxWGuyNBTvVwEfLQ8aGMAE SVRPTkVVTSwgUklHSFQgVVBQ CFYtJHWLTWFXXyPpSUUEJ6MI WTpccGFyICAtICBORUdBVElW BYNEP3UzCPUARSdOEG5QXLck QXMfmEToEJudLLQjDw6iSIWB SVRPTkVVTSwgTEVGVCBVUFBF UiBRVUFEUkFOVCwgQklPUFNZ IorzWLVeQD0nKS5GX7GPOUCD ACYWFgXGGHtWQ94BUuQPPBAt clxwYXJkXHBhciBDLiBSSUdI VCBQQVJJRVRBTCBQTEVVUkEs YTLWRfTEYQjgPPzYXNCHQ0NA LCq2FDFemiFxLCRdLiIJHi7J CuBEWP1NMAUQYzqxARyCGHRB KTkjYe0fGwoAXmxWDUHKI8YD RSBTRUVOXHBhciAgLSAgTkVH XUHXSsInHu1EPF7BXYtGYvZU C8yxxEKrZFMcgkOxfXGdBIZp IERJQVBIUkFHTUFUSUMgUklO ONeuVuKEWODKFS1GVzciXQMn CT3oHUSBDMEHPILQHTKRHgfF IylmOB3FVXTMRKCXVSYEC3mz PTZmVW2fNBTKOV3DCWBQNDND TFlJTkcgTFVORyBQQVJFTkNI QG8GCKvKTLowMnZWT5FRTjUk O5zCFggIG3lgEQHxOS4tJC8L B0QAUKGVEHUNJoTFMPyQT74Y IdNBGDSmsp33QKA9SyFgb7S9 YXI7ZUBqREFwx6scFDDsmGPg ZzEwMzNcZnRuYmpcdWMxXGRl BpDtv7ksw145uRVia9iwQESm RsJ3rIJbPGQnpIQwZ206MYAc DPuoh7lzh0JuMRUrtIVno3J5 RFUAxepccCn7iCxmG09bp4V0 KkgsY7uyZJNrCKKeM6HjNA9q BYAaMya8CMJ4YTG4YEVlLSXk Q7WvRC6oSCDseTVpBFc3v1pd wMqaSBFzTUZ1n3nhZIznvdBw NG2rwz0ioFd2x4ezigCuGOMh PWYikZJDAJYtY6PoqRfbBr9m lIa1yEyvFcudVOG7Teu4LS1y sf90kfv2zOjzBTUptymlUbR3 RSuwGQGhqfxfDPq1ARnlKUBf zMF6HXCxnNCmF3GdJMOoPV3c qgv0CIS4QIxoHJEcMnP1URLd qKVuXZOuuKypWLbwd065FFV5 NnCoAA3fC0Zrw0Z6tK2utKMr ZRRxjJXrTaQoOTZgjz6reGYk PKcrk8GiAKO8sjA3xKOjmZTm TFDbJpV5LLmgXO4zih15ZGYy IOY3aj8khBNtgFexhzJqiHUp QRueV5OjJYYua997KBOnZ8Bx KLDxd9T5bnNvYxQcFISzuFC3 boV9UJCjOY2zyuwfx8kgNBda DLzxYKUtmiU6omK6UYErvFEx V5PrsJ2xEHZhXP3hdsahk3bb IMX9MCmtPJEbDWY1RjIrMUZb k5Vwqqa8WzIfm4IppPPrCLac W50ym413TCJpgcXjZ3sabDGh jzlseWMmsiysYAdlkrC9JJMz NBjjhasnZEYkUWluI6uvQfVj BJCmiGjsXQbbb2UmUGWjHNLn XuKmlMFlZKNrLqp4QVDkoOFb IGYpLjSyP1binzooKlNQVNMi h4iuW3qpcLURlRUbX8DoNTmd cxJnDKnlUKtgNzDfWQl3SJ50 VvSiGYRkcc81 COMMENT (test code = t9arbJLqEBUroHR2FbEfORJw 3355) v2ofn4SvyLTseDQkDToidDBg lcWqge38bPZ6qV95US3vTKNm ZoF9CCDbsvZ9Lfq5VUOiXESk hIZqZ336x2rgs2kouuImxFB0 gPktYFMuegnmWnH8KMcqYXZa inkhSQg3CMswDZGdiOZ0GVMi eGWoI2KoNYDwBV9loly4KQI3 GDlpLIJsJiY2KPZwkQLnIIGb fWtkXGjzo148FWT6TrBiQOSn kfZuhQxpzP2kVxQlLYCDUpYv W3SpM6efdOHglZDsqySvZNVc YYRwgjHnfwlfUH8hEZglkZah XwZnyoXhs0B8QWTyqE9qCY5z YUFhPA9ejN2sKXEdakwoRFHd XHBhcn0= CPT Code(s) (test u6cqePDaUIUiqYF4RsHzBJDp code = 3357) r6neg7UcsVDuwOOxQDqkdGSa krXvrj13dVM4gI50QA6eZUHa WcR1DFMiqrZ9Dpr4HFWrGSEw uGTiC814z4fpl6wlmkZifXP8 kWanWCEipbplGbB7MQcxHGOx iyzvWSd7YWwqNPUcaRP8XJFb fOAyU9WwIJGyPE4bvei8XRN2 FQmyOMGzJeY3MLPedWWrRGSt pUbsISydr481EMP9WtVrSDTu quXlzWutsB8nDwJjTHY2SHUi YNd3XETtveS4DAAeOaofSRKn cn0= CLINICAL HISTORY c5ejeYUaSTGwpXN0RaXwOTCj (test code = 3356) g3yps8QknSMreWUxTYinvIWt zwIihi23kVB6bT12HR5pOBCs GpZ4TFOutbR9Jpp7JLVvXKZm cRKiN141a2ddr4pkkhMzuWP9 oLdzMNJhknpoDkR7YZgxYJMv cmgzDYq6ZQkhLAXysBV8URKr lGOqD9StRNCgWR1ltlu7HDI3 WVvoOMUdQrN8MDXjhJKmCETw oRygKFxra879CMD7PzNqNIJr gdWuvPdspD9fNyTsCCBHxWX9 WB0aNXLhdu7= GROSS DESCRIPTION f8yuuVVtHSBvhMWJPKZhI5di (test code = fyAtDYAuoQDjY3XhokseIYco [id number]) SA1xNR3gsQgxcNDmvZMeEP8F XGRlZmYxXHBhcGVydzEyMjQw OZNvdZLlrEQ8BEQgXC2teaqe KBzxWLukJVHunpH2APZlgTFh X9HoAHGvCU9gszgkQLP5XQhc gI9sauFWThqmFb3ymEXrgDlp ZjFcZmNoYXJzZXQwXGZuaWwg LOMlDJl6gG0HLkjqLSW3CKDD IcvpCGLhNV6Cq1kdMFFvzRVv VMF1GJtbdBOjLFZrLBMoKGv6 RLJzNMeazWGbLM1aaBngOjrq kLqln4EjpZKqNIwmTBQvEXOr JKqmDOYuKC0POrIpPTG7AUc8 ETgkKJz4PDl0EG9KIqXhCWVi UKIbQIH6QKEjSSv8RZprRE8U JKI8OoA8FTZ1CTI8IYS2ALAu XHQgMiBcXGYgQXJpYWwgXFxm cHBsDG5ybErcqUHkhpYNOjXS a8M3aABqNIVvfkWSXzdcwIlo TmVzdERvYzEgDQpcbHRycGFy XGxpbjBccmluMCANClxsdHJj eHjpkxMpLLAgC9KopjMxPQKq IGRcZOmrDbKlJVSkt7x2vKF4 vDHmaTS5eQWlkOrsWpAfPY1e gMXjCG6jYAjhHAckvgNpb9Vq BP80sATlgdQmwdZkJu5cZVAm ZSAjMSIgaXMgYSAxLjEgeCAw AmlhaSUiIjDgB68unNSnmB95 THOwctqrKXHrqI1mGBD9fXLz gNVlQiNlK10fhnQqz8BrXdJc MSMiLhseH3ojo4YddllvGnRg VL5vzvGcAZZ0gAE6UNwwLWLn dBTgR9KkZR3gWG8kQUaru7Sh SFboq3rwkhBbBWHyEMtdEJ45 cYAbSCCmCMFHyNWzw7ZqT1sl CE7clAYcWZ30yZVpoJeqd8Lq mMe9hQElOQohRNYpHz1LMTTq IXozLNYzbWMYMSL3AE7lSLlc jGPwryawCIJtM2EvM4VpjcKa mWVbXJPcyjQhc4zpVUL7VBKj fKBexGBmDkLdSdydANN7RYt3 RXodABTnO6ZaL7ZtVQikGAO8 MTAwMiBcXGRiICBPVlIgIiA1 LMi4DLy5YnF6BKu8IZWDEhFm JjGyFfBkCtVhRLNjKDc6GJn4 PNtDGfF2RSJ6MTIqKyRrVWBy NUDkBEl2QOTmBZyeUTFuxDAr OYvfQomxPOfmT29fMiAkQxrd lDAiggHSXaCQBHEakT6kQVPy IzvqNCFyRWmqSSSjN03pr5GJ x9HuSB6HKAv7ehHeyshbaJ4q WSPdecPaNMybbHZoD9ouIvGd MCBSZWNlaXZlZCBmcmVzaCBs YWJlbGVkIHdpdGggdGhlIHBh wPqzwbGlI6A2yqXuHT1xNPBc FUDlJ0AsMDMbU72aSELqyR7q SSFvLP3uPJVtGSH0PZWnlCLb MZQ6MBQeQK10ZVIcdnf8r61i sW5qJEzzDTWoTZ09RWjwCF47 EBzqIA1zYGOyWMmfpsHnfGzx joX1AZzyu8sju5wmrMFpUjbp ho6cCIefl3WcIFFwc3S5YRAn emFcjNRlrKO8qGTqn7JhW3rn RK2fwJWgwKTeQEQtt3QbaDOm IGFuZCBlbnRpcmVseSBzdWJt oSF6GIPgoY0oFbJvYSxcrIbh hV8uJNGtH64fk0YCz3ImMMFp NZeyy4yxjJtug3AloQBfOLsh AUKnrMAiVAmuyC4tKqYlr7bb jQo6VYzvqvS8EDAdsq2NPpox XpdasGglu4PofZUxWByyHIWf BYKyJLjaQCLvVN8NYkKlMPH3 ARh2MZczNUu7ERo0EI8KExVw ZOAeFPAhXSYgDMGcCGz0HJnp DT0EYPX9SgK2FSKrEOV8CSF6 MSBcXHQgMiBcXGYgQXJpYWwg BMvjsDNtLT4coPufatF4BDDw YWluIEMuIFBsZXVyYWwsIFJp A0g9LwusGXKtLSybGGAgS26n j3VEg9KnOT2BYQp3phXltsle lX8sDSLsdsDiKXthbMSuB9yp ZnMyMCBSZWNlaXZlZCBmcmVz aCBsYWJlbGVkIHdpdGggdGhl RXBcmQlpayNbG5T9apLcMP0y GKDuLCPgO4UaOEUrS42vLXQl xQ6iUCYuGQ4nGZTnyJS5ddXe UYOrZ4k0BeDkwoLrCHMeYZY0 RAHkHqK4AVOfUYVenYRzD2wv IJimxBRrk0XaMnSackJzI7Qt OCKqtHwyW9TmFY4wKEqlhKnx hz6tevD4SVRxFoKopPqxp8Yo LiAgVGhlIHNwZWNpbWVuIGlz KWWcfciadQu3PGYpQ5Ztm39b THQfwjSjnb7cH0Wez9KenKUt pN7qawBsvhFabHBbgwLlNxfl RW1vRVLmsRDqn1UmbVL4fOIj ALCyS5Azb41gDGPlCWNonGUo vLX9KLQtiJ6kMwUgHtOmIPxc xNglfN4sHDXoM48fb0EOx3Jz WTQlRWqkc4nepGitj8AxzRSk HHfhMBSeaKHaLJfgpI8zRoFs p4ikxLg8VYwwfwV5QJKptx3W LyruAxgdzKaoy6VozXIoPQyx KBHlUFQmYYbxSCAuZR9SLtRq KOS2UKt8GUaqYYm5ZCi6GX5O GnDdDDPrXDKzPRp0OPKgMSe9 SBssBR9LHVJ6GqM6QEWjTbN8 UAL0OXQlTRUfSeJlYWVuGHTu HCttBCcykZIsUC1knQqampG9 XHBsYWluIEQuIERpYXBocmFn kJ3neHZlMC9IZBHarVTSBKL6 QF3jAKPZKpsliNGyPSHwlKil EKmtzO1cYO0XAXv6adCmKFNh OoZeKtSnIZh0RJQdTfPeg6hp uXUoPTjbKHZ6xBGxPMLuJTVq QJJqLM18CFyVVMSytiCyDGkj bWVkaWNhbCByZWNvcmQgbnVt YmVyIGFuZCAiZGlhcGhyYWdt YkBesrPaXPWsDFG5HFJgFfR8 GSRvVNAjwKVwK4crLSgtbZIu w1CmYaCphkDcB0BjXDPxzbGf SFHeyvnsCnpccy11taU9pGBo fTFgNcQcX15lixSgMYdqxWke TQK8HYYwVHVesHNzZ4iuHsGu VGhlcmUgaXMgYSBzbWFsbCBh lM01aaLxn5XzIDb1NIW1OFVv jnI7zWXcn0KpPvErLG0lAEXj MPGngKXmkU6iliKuyxInUEOp DDqicTHeNLW7sV3nMEXiZO3y XH7uYHyfg0BoWBrao9peqcSm ZOSbVZhkVU84fULcVPRvLREK NFCaANPixgKxvAn8IPAoFLI7 zL5lczBrscVew5CiqPq6yWCy ERkaYBXsMKEqTaeysJ9mHBhk iW2qTAYzKIsiLPSiM6OqjR7g UH6HFcckSLOpGTPIX2WpS63M ClxwbGFpblxlcGljTmVzdERv UeXbgNjfzH29NHFsfNNcBEJ8 ZP6yGOLreyadUCTjVXIhKMW5 BNjhrG88vTUmIKMbIGLjiDGp cA0IIYKjETF9QGidkF42yBVt XB3EPYLeIRA5OQUygJCjCBA9 EL8inP6PrG== MICROSCOPIC h7uxpUJcYCPhlFS7TiHgDPCy DESCRIPTION (test r8qbd7DbjQPcuHRgGRxkeIBo code = 3374) lnFytu16aZA3xT41YY8eFATl SoN4RPCwnnG6Ffb3GKPuNSPq sMXtZ082q1rcu7gtquMqtKV0 tZlwILGayeowZlB5TYkvWWSa ycvbCIf1RRknLWNkpBL3VRTb lRBiO9GjIZAhUZ5cywq5HIC4 TChvRZIaDqC4UTRziVPjQGNe xAwxDDweh151NPX6ElLnNMVc etXouDsdkQ6xYoKdNOEAXRRs r3GdLRFbDAAmhiymNBWwMSWr cn0= SPECIAL STUDIES (test w5kbpPInVKOtx1vdPQWxwZZx code = 5732) ZzEwMzNcZnRuYmpcdWMxIHtc cdOmWEqya2BdB6PtUaYtRFfl bnNpXGRlZmxhbmcxMDMzXGZ0 wfRzHLNwKKvuINEhBUiiOs9e zEGdcHclHoAcMEUkj3jnqmLU hjzwuGf3q2msXWSeDeW7bVFh OItvV3mkblIsxRHqX3VqzMTc gVw4a6uyUrPhOnE4mRApWXwe G6zxvbIyrZWmFNIvJRn5nI18 HXXzrF3ewPViKWbawiWwLfE4 OMmcJFChLlN5CRRunUZvYCPn P1ugQIDgPSqvPRQaJYxvcIKe ZUW8rQrxr2I0hZJxhGAwzEsp NcPkBcWsUrIJz4DePBa3qJpv M8QsHYWnCqZ3dPZoBJNlQRrj RIOtGCHywkK2lXaogoTfj87o eHQyXGYwXGZzMjBcbGkwXHJp SBGBn0AnuOnjMNF7jEd8lJfj DhpxHJQ2Zqe8VH0afl63gdr2 lKycHBXvflzyAtD0CTluHBUz cwcvJIs3RHgyPNEwzXQ7JIHm wHUpR5JvPUVvAY2kbeo1LOD5 EHepGAFoYfI2UQWgvZZkDAEi zRjvSHkvl601YPX5XpFpXO7w M1Acj8A0sH7jtGFnSUVouPBs UtQiGQEeob9jcULfUVpwv2Wg CEM2usV0rTJhdQIkCVNcDY19 Xcgdc3QkTxknp9VmA69drIX1 BSeok5jqTC6yWgL5vdLlVAjd s6proY0nHxT2BDodNE7vCG6z RTIdpO4ifuhsRROoUoZcromr QDEagQmmqiEdTi2wjAowAHN7 KKpiU9tdcF5aSoA5KQxpD4lw gO9hKHs2FEjxhLD6YIXdmU5q XI1yfbkke4lqMCdnKSrbKNRd xdS3nhZ0IFJolTFmJ2OvwM0y SIDuKP6jditzm6vnHXJ3TWfg EAAyHPR0WxGsDPHch1Nsowj9 RhUmq6PkkBVbTTwoL00jo708 RKKxriNgJ6ugbAAgscmumFCg hsccQNmzksO2ONJwQBLaYHyu XGYxXGZzMjJcbGFuZzEwMzNc aGljaFxmMVxkYmNoXGYxXGxv S4cvRzEvZ5UuRRYrJnFuCTzt QVevnOAtdBEabUP1gJ6cVN1x RPHtnSTlH0NdLIEuseHzmDVn LLA6iQCtdBKcLN0aTVzxqAMq t7kzk3HdV5mtcTmqcJZ4ZS0u SJBtJGTyHJxlb4IxiH7jVbxd bGFpblxmMVxmczIyXGxhbmcx WWXrYYedZ2neUkYvNBZgqXtj EIkot8HdNHTsGCTvXzxdxcWj JSg3phOkRJUzfrpjOJJfpYon cQ8rBnMtGyUwKrpcKJ5pKWCm F3yeaOHjBVWxCJQhP9mpOqIy fD6jiWacTNabYgMhTtNyYdVQ u900xo7bFSZgqWXpcwHMoJUm eF7sTBrbHZpeQZuhjSOyNGej t1saUZLdc7o7vUJxFCRwkpUk u4akOSpaijVbKJFcvDYwwTAz XHRae21fCRdroHeunKavRMZv a9PreUzhq7OkRnSkCYuqm6Wf Z01rgDSllYCoaUyzXLChncGf QQKiz97ar0ntBWUxSsS6cIOn gJQ2zVSvzXUiv5ZhnQbqXADe t5znVJDbvh6yjcoviGBhv5Zr mN3pufemVOwyaVBriiYtVPTr l6y7wUVqMSLdRVTkURcqrHw4 CIEqo467tg2sstX7dAQkIKZ3 YWlsYWJsZSBhcmUgZXZhbHVh dGVkXHBsYWluXGYxXGZzMjJc bGFuZzEwMzNcaGljaFxmMVxk YxTeZEDuOQoqC1ooFlIiA7Bl BMJrHsBzbFQuF5pezTPhQDCz YWluXGYxXGZzMjJcbGFuZzEw MzNcaGljaFxmMVxkYmNoXGYx VWqjE1gbIpOyR8OwQQTqGlKf IFxwbGFpblxmMVxmczIyXGxh ilhsHZLuAOjvA1toFcXwVXAu uGeiJNjhm0QsOXQpLQZhVdpi zpTpXAk4bkEsLJBlhrsffPSc blxmMVxmczIyXGxhbmcxMDMz DWloY6rePsPtATHoiYzxWPur g7OmHFSkUWIpKqrqxaGjMGim nJJis1lww0FfY2lxeRbrvYO5 EQJpC6xzgIQjsMI9NSD3kN8o EZfzaiGvWCYhl5IsDNViHTKc OuG6nM7eCKL9LpWDsDbpNIGk YWluXGYxXGZzMjJcbGFuZzEw MzNcaGljaFxmMVxkYmNoXGYx WJmbO8exJuMkQ6AxRHWyIkRe rTioFBzfKBo0XlbfuZElrkqa MVxmczIyXGxhbmcxMDMzXGhp I5jkPdWxXBLoqXtrKCymn1Tx XGYxXGNmMlxmczIyIHMgTWVk oJTnmGUIGP85YNBuJZGndYuz cW2qqVMFQAZctvR4s4C5UUde YZPlWWh8BSpnocAjFGGqeA2c DLOfPC0mHLi4tvFvBNHqg4Sw IE2eEUYbyKGePXO8AHMvf8Zk Q6Zzy8YtFXQeQFCptn5dgeWy VtEAwMOqNKFmdy95YRPtIR2a F9msSZNvOBIjtaQryVIar4Dn KCRqhWX6eURgBQ2WQuDCi51q IGFuZCBEcnVnIEFkbWluaXN0 xnN2wC0dLaBJmIKvGhBWESsf srUgWEJkyy6ruiPtWIXyCBZc b9NjmWWncLXuaxCyV2Tco6Hl CMOktz01UFrzqHDpax12MH0e C3Lpd2LjmZ5yVMagQPNpz9It sEEvpVIrOXIsn9RaU4ajkhqd NSsrvAHrkY0xZDJdNXh8SGHv t7YqOCGon0AeHhEabvKiGDAk BADqEXMpyR18EXB6qMcsqIkz rxGxAM3aVLKcmpRlKJFeSSVp wT7fPFwheoIpKDNhleE2h8H6 DZzqXPBxolHhOrfaUXX1xrNj noR0iOOjC3milgqjNZaxLDYs m6KveO2znKLKzBLmp5OmxWOg cCPAhHDaQN9nxbYbVN1bPDP1 ODggKENMSUEtODgpIGFzIHF1 NUwsUedvDOJ4qyAjUVMwh0Qs NZfwA8loQ69jcUukyPv9zRRc uRtjiXPabDYoMINvhlV2o2F7 EZVlb3XzihopFOJaUOsxQLRp XGZzMjJcbGFuZzEwMzNcaGlj kKjtTiqcJhPtSHVsORerF7eu LpOkCrTrNnskCYQ6yB== [facility] [id number] 16:41:12Surgical Pathology Report Case: [id number] Authorizing Provider: Kiya Crane MD Collected: 03/03/2022 08:33 PM Ordering Location: [facility] Received: 03/04/2022 10:11 AM PERIOPERATIVE SERVICES Pathologist: Nina Kumar MD Specimens: A) - Nodule, RIGHT UPPER QUADRANT NODULE FOR PERMANENT B) - Peritoneum, LEFT UPPER QUADRANT PERITONEUM BIOPSY FOR PERMANENT C) - Pleural, Right, Right ParietalPleura Tissue D) - Diaphragm, Diaphragmatic rind REASON FOR ADDENDUM: TO REPORT SPECIAL STAINSSpecial stain for GMS and AFB are negative for fungal and acid-fast micro-organisms respectively.Correlation with cultures and serology is recommended.Addendum electronically signed by Nina Kumar MD on 03/09/2022 at 4:41 PMA. PERITONEUM, RIGHT UPPER QUADRANT, BIOPSY: - NEGATIVE FOR MALIGNANCYB. PERITONEUM, LEFT UPPER QUADRANT, BIOPSY: - NEGATIVE FOR MALIGNANCYC. RIGHT PARIETAL PLEURA, PARTIAL PLEURECTOMY: - NECROINFLAMMATORY EXUDATE, NO VIABLE TISSUE SEEN - NEGATIVE FOR MALIGNANCYD. DIAPHRAGMATIC RIND, RESECTION: - ACUTE AND ORGANIZING PLEURITIS - SCANT UNDERLYING LUNG PARENCHYMA WITHREACTIVE CHANGES - NEGATIVE FOR MALIGNANCY Signing Pathologist Direct Phone Line: [phone] signed by Nina Kumar MD on 03/09/2022 at 8:18 [facility]. Special stains are pending and will be reported in an addendum.[id number]. Nodule.Received fresh labeled with the patient 's name, medical record number and "nodule #1" is a 1.1 x 0.8 x 0.3 cm yellow- pink adipose tissue fragment surfaced by glistening membrane that is trisected. No gross lesions are identified. The specimen is entirely submitted in A1.B. Peritoneum.Received fresh labeled with the patient's name, medical record number and "left upper quadrant peritoneum" is a 4.5 x 0.5 x 0.1 cm irregular yellow- white fibroadipose tissue fragment the specimen is quadrisected and entirely submitted in B1.C. Pleural, Right.Received fresh labeled with the patient's name, medical record number and "pleura, right" is a 4.8 x2.7 x 1.5 cm aggregate of 2 irregular pieces of yellow-churchill soft tissue. The specimen is serially sec tioned and no gross lesions are identified. Fruit Preserver sections are submitted in C1-C3.D. Diaphragm.Received fresh labeled with the patient's name, medical record number and "diaphragm" is a 6.0 x 2.2 x 1.0 cm aggregate of 3 irregular red-pink fibrous tissue fragments with attached muscle. There is a small amount of exudate on the surface. The specimen is serially sectioned and no gross lesions are identified. Fruit Preserver sections are submitted in D1- D3.VERNA Purdy PA (ASCP)cmPerformed.The interpretation of this case included the use of immunohistochemistry or special stains.Control Slides Examined: In-house known positive controls were evaluated along with the test tissue. These control slides run alongside of the patients sample show appropriate staining. Internal positive and negative controls when available are evaluated Immunohistochemistry technical testing was performed at [facility], Pathology Laboratory where it was developed and its performance characteristics were determined. It has not been cleared or approved by the U.S. Food and Drug Administration. The FDA has determined that such clearance or approval is not necessary. The test is used for clinical purposes. It should not be regarded as investigational or for research. This laboratory is certified under the Clinical Laboratory Improvement Amendments of 1988 (CLIA-88) as qualified to perform high complexity clinical laboratory testing.CRYPTOCOCCAL [id number] 14:02:50 Test Item Value Reference Range Interpretation Comments CRYPTOCOCCAL ANTIGEN, SERUM Negative Negative, Interference (BEAKER) (test code = 1828) RAD, CHEST, 1 VIEW, NON [id number] 13:30:00Reason for exam:->CT [facility] 1945 Sex: FFINAL REPORT RAD, CHEST, 1 VIEW, NON DEPT INDICATION: CT removal COMPARISON: Prior day's exam FINDINGS: Portable frontal view of the chest. IMPRESSION: Support Lines: Right-sided chest tube has been removed. Lungs and pleura: Decreased right effusion. Bandlike opacity within the right midlung is similarly unchanged. Left lung remains predominantly clear. Small right basilar pneumothorax isdifficult to exclude with persistent lucency which parallels the right hemidiaphragm. Heart and mediastinum: Stable contours. Stable surgical changes. Additional findings: None Signed: Grace Thomas Verified Date/Time: 03/09/2022 13:30:28 Reading Location: [address] Reading Room POC-Glucose [id number] 12:05:23 Test Item Value Reference Range Interpretation Comments POC-Glucose Meter (test 101 mg/dL 70-110 : TE STED AT [facility] code = 1538) [address] [facility], [address]: Unified Communications Engineer/Techni krupa ID = [id number] for RODRIGO WYATT Lab Interpretation (test Normal code = 10175-6) [facility] [id number] 12:05:23 Test Item Value Reference Range Interpretation Comments POC-Glucose Meter (test 101 mg/dL 70-110 : TE STED AT [facility] code = 1538) [address] [facility], 770 30: Unified Communications Engineer/Techni krupa ID = [id number] for RODRIGO WYATT Lab Interpretation (test Normal code = 53175-1) [facility]-GLUCOSE [id number] 12:05:23 Test Item Value Reference Range Interpretation Comments POC-GLUCOSE METER 101 mg/dL 70-110 : TESTED A T [facility] 6720 (BEAKER) (test code = [facility], 1538) [address]: Unified Communications Engineer/Techni krupa ID = [id number] for SAL ARYANRODRIGO DIAZ ANAEROBIC [id number] 10:55:31 Test Item Value Reference Range Interpretation Comments CULTURE (BEAKER) (test No anaerobes isolated code = 1095) RAD, CHEST, 1 VIEW, NON [id number] 07:51:00Reason for exam:->s/p thoracotomyShould this be performed at the bedside?->Yes [facility] 1945 Sex: FFINAL REPORT RAD, CHEST, 1 VIEW, NON DEPT INDICATION: s/p thoracotomy COMPARISON: Prior day's exam FINDINGS: Portable frontal view of the chest. IMPRESSION: Support Lines: Right-sided chest tube has been removed. A remaining right lower chest tube is noted. Lungs and pleura: Decreased righteffusion. Bandlike opacity within the right midlung is similarly unchanged. Left lung remains predominantly clear. Small lucency persists at the right lung base (although there are overlapping lung markings), favored to be artifactual as opposed to a basilar pneumothorax. Heart and mediastinum: Stablecontours. Stable surgical changes. Additional findings: None Signed: Grace Thomas MDReport Verified Date/Time: 03/09/2022 07:51:59 Reading Location: [address] Reading Room POCT-GLUCOSE [id number] 07:18:53 Test Item Value Reference Range Interpretation Comments POC-GLUCOSE METER 110 mg/dL 70-110 : TESTED A T [facility] 6720 (BEAKER) (test code = [facility] [place], 1538) [id number]: Unified Communications Engineer/Techni krupa ID = [id number] for HU NTER, HIWITHA [id number] 06:30:05 Test Item Value Reference Range Interpretation Comments MAGNESIUM (BEAKER) (test code = 1.6 mg/dL 1.6-2.6 627) Unified Communications Engineer ID - PIAYA [id number] 06:30:05 Test Item Value Reference Range Interpretation Comments PHOSPHORUS (BEAKER) (test code = 2.4 mg/dL 2.3-4.7 604) Unified Communications Engineer ID - PIAYA LBASIC METABOLIC [id number] 06:30:04 Test Item Value Reference Range Interpretation Comments SODIUM (BEAKER) 139 meq/L 136-145 (test code = 381) POTASSIUM 3.0 meq/L 3.5-5.1 L (BEAKER) (test code = 379) CHLORIDE (BEAKER) 105 meq/L 98-107 (test code = 382) CO2 (BEAKER) 25 meq/L 22-29 (test code = 355) BLOOD UREA 5 mg/dL 7-21 L NITROGEN (BEAKER) (test code = 354) CREATININE 0.57 mg/dL 0.57-1.25 (BEAKER) (test code = 358) GLUCOSE RANDOM 101 mg/dL 70-105 (BEAKER) (test code = 652) CALCIUM (BEAKER) 8.8 mg/dL 8.4-10.2 (test code = 697) EGFR (BEAKER) 94 Interpretatio n of eGFR (test code = mL/min/1.73 values Stage De scription 1092) sq m Result G1 Cheryl l or high >=90 G2 Mildly decreased 60-89 G3a Mild ly to moderately 45-5 9 G3b Moderately to s everely 30-44 G4 Severl y decreased 15-29 G5 Kidney failure <15Reported eGF R is based on the CKD-EPI 2020 equation that d oes not use a race coefficientEsti mated GFR is not as accur ate as Creatinine Yanci anay in predicting glom erular filtration rate . Estimated GFR is not appl icable for dialysis patien ts Unified Communications Engineer ID - PIAYA LCBC W/PLT COUNT & AUTO [id number] 05:55:34 Test Item Value Reference Range Interpretation Comments WHITE BLOOD CELL COUNT (BEAKER) 11.5 K/ L 3.5-10.5 H (test code = 775) RED BLOOD CELL COUNT (BEAKER) 3.38 M/ L 3.93-5.22 L (test code = 761) HEMOGLOBIN (BEAKER) (test code = 8.6 GM/DL 11.2-15.7 L 410) HEMATOCRIT (BEAKER) (test code = 27.0 % 34.1-44.9 L 411) MEAN CORPUSCULAR VOLUME (BEAKER) 80 fL 79-95 (test code = 753) MEAN CORPUSCULAR HEMOGLOBIN 25.4 pg 25.6-32.2 L (BEAKER) (test code = 751) MEAN CORPUSCULAR HEMOGLOBIN CONC 31.9 GM/DL 32.2-35.5 L (BEAKER) (test code = 752) RED CELL DISTRIBUTION WIDTH 17.5 % 11.7-14.4 H (BEAKER) (test code = 412) PLATELET COUNT (BEAKER) (test 341 K/CU MM 150-450 code = 756) MEAN PLATELET VOLUME (BEAKER) 9.5 fL 9.4-12.3 (test code = 754) NUCLEATED RED BLOOD CELLS 0 /100 WBC 0-0 (BEAKER) (test code = 413) NEUTROPHILS RELATIVE PERCENT 65 % (BEAKER) (test code = 429) LYMPHOCYTES RELATIVE PERCENT 24 % (BEAKER) (test code = 430) MONOCYTES RELATIVE PERCENT 6 % (BEAKER) (test code = 431) EOSINOPHILS RELATIVE PERCENT 3 % (BEAKER) (test code = 432) BASOPHILS RELATIVE PERCENT 0 % (BEAKER) (test code = 437) NEUTROPHILS ABSOLUTE COUNT 7.48 K/ L 1.56-6.13 H (BEAKER) (test code = 670) LYMPHOCYTES ABSOLUTE COUNT 2.78 K/ L 1.18-3.74 (BEAKER) (test code = 414) MONOCYTES ABSOLUTE COUNT (BEAKER) 0.73 K/ L 0.24-0.36 H (test code = 415) EOSINOPHILS ABSOLUTE COUNT 0.34 K/ L 0.04-0.36 (BEAKER) (test code = 416) BASOPHILS ABSOLUTE COUNT (BEAKER) 0.05 K/ L 0.01-0.08 (test code = 417) IMMATURE GRANULOCYTES-RELATIVE 1.00 % 0.00-1.00 PERCENT (BEAKER) (test code = 2801) POCT-GLUCOSE [id number] 21:44:43 Test Item Value Reference Range Interpretation Comments POC-GLUCOSE METER 107 mg/dL 70-110 : [facility] T [facility] 67[facility] (test code = [facility], 153) [address]: Unified Communications Engineer/Techni krupa ID = [id number] for MA INDONNA POCT-GLUCOSE [id number] 16:47:36 Test Item Value Reference Range Interpretation Comments POC-GLUCOSE METER 89 mg/dL 70-110 : TESTED A T [facility] 6720 (BEAKER) (test code = [facility], 1538) [address]: Unified Communications Engineer/Techni krupa ID = [id number] for WILL IAMS, TYNEKA POCT-GLUCOSE [id number] 11:21:31 Test Item Value Reference Range Interpretation Comments POC-GLUCOSE METER 98 mg/dL 70-110 : TESTED A T [facility] 6720 [facility] (test code = [facility], 1538) [address]: Unified Communications Engineer/Techni krupa ID = [id number] for WILL IAMS, TYNEKA CT, BRAIN, WITHOUT [id number] 10:19:00Reason for Exam (Free Text) - Addiitonal information for Radiologist->unwitnessed fall with headstrike, prior aquired coagulopathy, evaluate for intracranial hemorrhage [facility] 1945 Sex: FFINAL REPORT CT Head without contrast CLINICAL HISTORY: Head trauma, minor (Age >= 65y) TECHNIQUE: Contiguous axial images through the head without contrast. This exam was performed according to the departmental dose optimization program which includes automated exposure control, adjustment of the mA and/or kV according to the patient size, and/or use of an iterative reconstruction technique. COMPARISON: 01/08/2022 FINDINGS: There is left posterior scalp swelling. There is no evidence of skull fracture or intracranial hemorrhage. A right posterior lentiform nucleus lacunar infarct versus dilated perivascular spaces unchanged. There is periventricular and subcortical white matter hypodensity which is nonspecific but compatible with chronic microvascular ischemic change. There are atherosclerotic calcifications of the intracranial circulation. There is generalized parenchymal volume loss without hydrocephalus or midline shift. In the left parasagittal posterior fossa along the torcular, there is a 9 mm slightly hyperdense extra-axial appearing focus which appears more prominent than before and may represent a meningioma. There are no extra-axial fluid collections. The paranasal sinuses are well-aerated. IMPRESSION: Left posterior scalp swelling. No evidence of skull fracture or in tracranial hemorrhage. Possible left posterior fossa meningioma along the torcular. If clinically warranted, a gadolinium enhanced MRI brain could be performed for further evaluation if there are no contraindications. Signed: Sloan Steiner MDReport Verified Date/Time: 03/08/2022 10:19:32 RAD, CHEST, 1 VIEW, NON [id number] 07:05:00Reason for exam:->s/p thoracotomyShould this be performed at the bedside?->Yes [facility] 1945 Sex: FFINAL REPORT RAD, CHEST, 1 VIEW, NON DEPT INDICATION: s/p thoracotomy COMPARISON: Prior day's exam FINDINGS: Portable frontal view of the chest. IMPRESSION: Support Lines: Central catheter has been removed. Two right-sided chest tubes are present. Lungs and pleura: Decreased right effusion.Bandlike opacity within the right midlung is similarly unchanged. Left lung remains predominantly clear. No significant pneumothorax. Heart and mediastinum: Stable contours. Stable surgical changes. Additional findings: None Signed: Grace Thomas MDReport Verified Date/Time: 03/08/2022 07:05:09 [id number] 04:51:57 Test Item Value Reference Range Interpretation Comments MAGNESIUM (BEAKER) (test code = 1.7 mg/dL 1.6-2.6 627) Unified Communications Engineer ID - ANGELES [id number] 04:51:57 Test Item Value Reference Range Interpretation Comments PHOSPHORUS (BEAKER) (test code = 2.4 mg/dL 2.3-4.7 604) Unified Communications Engineer ID - ANGELES MBASIC METABOLIC [id number] 04:51:56 Test Item Value Reference Range Interpretation Comments SODIUM (BEAKER) 133 meq/L 136-145 L (test code = 381) POTASSIUM 3.5 meq/L 3.5-5.1 (BEAKER) (test code = 379) CHLORIDE (BEAKER) 104 meq/L 98-107 (test code = 382) CO2 (BEAKER) 21 meq/L 22-29 L (test code = 355) BLOOD UREA 8 mg/dL 7-21 NITROGEN (BEAKER) (test code = 354) CREATININE 0.57 mg/dL 0.57-1.25 (BEAKER) (test code = 358) GLUCOSE RANDOM 92 mg/dL 70-105 (BEAKER) (test code = 652) CALCIUM (BEAKER) 8.7 mg/dL 8.4-10.2 (test code = 697) EGFR (BEAKER) 94 Interpretatio n of eGFR (test code = mL/min/1.73 values Stage De scription 1092) sq m Result G1 Cheryl l or high >=90 G2 Mildly decreased 60-89 G3a Mildl y to moderately 45-5 9 G3b Moderately to s everely 30-44 G4 Sever ly decreased 15-29 G5 Kidney failure <15Repo rted eGFR is based on the CKD-EPI 2020 equation t hat does not use a race coefficientEsti mated GFR is not as accur ate as Creatinine Yanci cueva in predicting glom erular filtration rate . Estimated GFR is not appl icable for dialysis patien ts Unified Communications Engineer ID - ANGELES MCBC W/PLT COUNT & AUTO [id number] 04:32:01 Test Item Value Reference Range Interpretation Comments WHITE BLOOD CELL COUNT (BEAKER) 12.0 K/ L 3.5-10.5 H (test code = 775) RED BLOOD CELL COUNT (BEAKER) 3.50 M/ L 3.93-5.22 L (test code = 761) HEMOGLOBIN (BEAKER) (test code = 8.9 GM/DL 11.2-15.7 L 410) HEMATOCRIT (BEAKER) (test code = 28.0 % 34.1-44.9 L 411) MEAN CORPUSCULAR VOLUME (BEAKER) 80 fL 79-95 (test code = 753) MEAN CORPUSCULAR HEMOGLOBIN 25.4 pg 25.6-32.2 L (BEAKER) (test code = 751) MEAN CORPUSCULAR HEMOGLOBIN CONC 31.8 GM/DL 32.2-35.5 L (BEAKER) (test code = 752) RED CELL DISTRIBUTION WIDTH 17.4 % 11.7-14.4 H (BEAKER) (test code = 412) PLATELET COUNT (BEAKER) (test 280 K/CU MM 150-450 code = 756) MEAN PLATELET VOLUME (BEAKER) 9.0 fL 9.4-12.3 L (test code = 754) NUCLEATED RED BLOOD CELLS 0 /100 WBC 0-0 (BEAKER) (test code = 413) NEUTROPHILS RELATIVE PERCENT 68 % (BEAKER) (test code = 429) LYMPHOCYTES RELATIVE PERCENT 24 % (BEAKER) (test code = 430) MONOCYTES RELATIVE PERCENT 6 % (BEAKER) (test code = 431) EOSINOPHILS RELATIVE PERCENT 2 % (BEAKER) (test code = 432) BASOPHILS RELATIVE PERCENT 1 % (BEAKER) (test code = 437) NEUTROPHILS ABSOLUTE COUNT 8.10 K/ L 1.56-6.13 H (BEAKER) (test code = 670) LYMPHOCYTES ABSOLUTE COUNT 2.85 K/ L 1.18-3.74 (BEAKER) (test code = 414) MONOCYTES ABSOLUTE COUNT (BEAKER) 0.69 K/ L 0.24-0.36 H (test code = 415) EOSINOPHILS ABSOLUTE COUNT 0.22 K/ L 0.04-0.36 (BEAKER) (test code = 416) BASOPHILS ABSOLUTE COUNT (BEAKER) 0.06 K/ L 0.01-0.08 (test code = 417) IMMATURE GRANULOCYTES-RELATIVE 0.80 % 0.00-1.00 PERCENT (BEAKER) (test code = 2801) Prepare [id number] 23:54:00 Test Item Value Reference Range Interpretation Comments CROSSMATCH (test code = 2264) COMPATIBLE Unit ABO (test code = B Pos [id number]) UNIT NUMBER (test code = [id number] 934-0) Status (test code = 6772614) TX_TIMEINCHART Blood Bank Product (test code RED BLOOD CELLS = 2263) PRODUCT CODE (test code = J4780W20 933-2) [facility] [id number] 23:54:00 Test Item Value Reference Range Interpretation Comments CROSSMATCH (test code = 2264) COMPATIBLE Unit ABO (test code = B Pos [id number]) UNIT NUMBER (test code = [id number] 934-0) Status (test code = 8493799) TX_TIMEINCHART Blood Bank Product (test code RED BLOOD CELLS = 2263) PRODUCT CODE (test code = C5551R35 933-2) [facility], NON [id number] 08:07:00Reason for exam:->s/p thoracotomyShould this be performed at the bedside?->Yes [facility] 1945 Sex: FFINAL REPORT RAD, CHEST, 1 VIEW, NON DEPT INDICATION: s/p thoracotomy COMPARISON: Prior day's exam FINDINGS: Portable frontal view of the chest. IMPRESSION: Support Lines: Central catheter tip overlies the SVC. Two right- sided chest tubes are present. Lungs and pleura: Decreased right effusion. Bandlike opacity within the right midlung is similarly unchanged. Left lung remains predominantly clear. No significant pneumothorax. Heart and mediastinum: Stable contours. Stable surgical changes. Additional findings: None. Signed: Grace Thomas Verified Date/Time: 03/07/2022 08:07:17 PHOSPHORUS 2022-03-07 06:43:00 Test Item Value Reference Range Interpretation Comments PHOSPHORUS (BEAKER) (test code = 3.0 mg/dL 2.3-4.7 604) Unified Communications Engineer ID - EDELOBASIC METABOLIC [id number] 06:42:59 Test Item Value Reference Range Interpretation Comments SODIUM (BEAKER) 136 meq/L 136-145 (test code = 381) POTASSIUM 3.5 meq/L 3.5-5.1 (BEAKER) (test code = 379) CHLORIDE (BEAKER) 103 meq/L 98-107 (test code = 382) CO2 (BEAKER) 25 meq/L 22-29 (test code = 355) BLOOD UREA 10 mg/dL 7-21 NITROGEN (BEAKER) (test code = 354) CREATININE 0.52 mg/dL 0.57-1.25 L (BEAKER) (test code = 358) GLUCOSE RANDOM 76 mg/dL 70-105 (BEAKER) (test code = 652) CALCIUM (BEAKER) 8.6 mg/dL 8.4-10.2 (test code = 697) EGFR (BEAKER) 96 Interpretatio n of eGFR (test code = mL/min/1.73 values Stage De scription 1092) sq m Result G1 Cheryl l or high >=90 G2 Mildly decreased 60-89 G3a Mildl y to moderately 45-5 9 G3b Moderately to s everely 30-44 G4 Severl y decreased 15-29 G5 Kidney failure <15Reported eGF R is based on the CKD-EPI 2020 equation that d oes not use a race coefficientEsti mated GFR is not as accur ate as Creatinine Yanci anay in predicting glom erular filtration rate . Estimated GFR is not appl icable for dialysis patien ts Unified Communications Engineer ID - [id number] 06:42:59 Test Item Value Reference Range Interpretation Comments MAGNESIUM (BEAKER) (test code = 2.0 mg/dL 1.6-2.6 627) Unified Communications Engineer ID - EDELOCBC W/PLT COUNT & AUTO [id number] 06:23:09 Test Item Value Reference Range Interpretation Comments WHITE BLOOD CELL COUNT (BEAKER) 13.7 K/ L 3.5-10.5 H (test code = 775) RED BLOOD CELL COUNT (BEAKER) 3.10 M/ L 3.93-5.22 L (test code = 761) HEMOGLOBIN (BEAKER) (test code = 8.1 GM/DL 11.2-15.7 L 410) HEMATOCRIT (BEAKER) (test code = 25.2 % 34.1-44.9 L 411) MEAN CORPUSCULAR VOLUME (BEAKER) 81 fL 79-95 (test code = 753) MEAN CORPUSCULAR HEMOGLOBIN 26.1 pg 25.6-32.2 (BEAKER) (test code = 751) MEAN CORPUSCULAR HEMOGLOBIN CONC 32.1 GM/DL 32.2-35.5 L (BEAKER) (test code = 752) RED CELL DISTRIBUTION WIDTH 17.2 % 11.7-14.4 H (BEAKER) (test code = 412) PLATELET COUNT (BEAKER) (test 271 K/CU MM 150-450 code = 756) MEAN PLATELET VOLUME (BEAKER) 9.7 fL 9.4-12.3 (test code = 754) NUCLEATED RED BLOOD CELLS 0 /100 WBC 0-0 (BEAKER) (test code = 413) NEUTROPHILS RELATIVE PERCENT 69 % (BEAKER) (test code = 429) LYMPHOCYTES RELATIVE PERCENT 24 % (BEAKER) (test code = 430) MONOCYTES RELATIVE PERCENT 5 % (BEAKER) (test code = 431) EOSINOPHILS RELATIVE PERCENT 2 % (BEAKER) (test code = 432) BASOPHILS RELATIVE PERCENT 0 % (BEAKER) (test code = 437) NEUTROPHILS ABSOLUTE COUNT 9.40 K/ L 1.56-6.13 H (BEAKER) (test code = 670) LYMPHOCYTES ABSOLUTE COUNT 3.30 K/ L 1.18-3.74 (BEAKER) (test code = 414) MONOCYTES ABSOLUTE COUNT (BEAKER) 0.63 K/ L 0.24-0.36 H (test code = 415) EOSINOPHILS ABSOLUTE COUNT 0.20 K/ L 0.04-0.36 (BEAKER) (test code = 416) BASOPHILS ABSOLUTE COUNT (BEAKER) 0.04 K/ L 0.01-0.08 (test code = 417) IMMATURE GRANULOCYTES-RELATIVE 0.60 % 0.00-1.00 PERCENT (BEAKER) (test code = 2801) POCT-GLUCOSE [id number] 00:14:22 Test Item Value Reference Range Interpretation Comments POC-GLUCOSE METER 107 mg/dL 70-110 : TESTED A T [facility] (BEAKER) (test code = [place], 1538) [address]: Unified Communications Engineer/Techni krupa ID = [id number] for MOR MACIAS MS CBC (HEMOGRAM ONLY)2022-03-06 17:03:29 Test Item Value Reference Range Interpretation Comments WHITE BLOOD CELL COUNT (BEAKER) 14.9 K/ L 3.5-10.5 H (test code = 775) RED BLOOD CELL COUNT (BEAKER) 3.14 M/ L 3.93-5.22 L (test code = 761) HEMOGLOBIN (BEAKER) (test code = 8.2 GM/DL 11.2-15.7 L 410) HEMATOCRIT (BEAKER) (test code = 25.3 % 34.1-44.9 L 411) MEAN CORPUSCULAR VOLUME (BEAKER) 81 fL 79-95 (test code = 753) MEAN CORPUSCULAR HEMOGLOBIN 26.1 pg 25.6-32.2 (BEAKER) (test code = 751) MEAN CORPUSCULAR HEMOGLOBIN CONC 32.4 GM/DL 32.2-35.5 (BEAKER) (test code = 752) RED CELL DISTRIBUTION WIDTH 17.3 % 11.7-14.4 H (BEAKER) (test code = 412) PLATELET COUNT (BEAKER) (test 239 K/CU MM 150-450 code = 756) MEAN PLATELET VOLUME (BEAKER) 9.6 fL 9.4-12.3 (test code = 754) NUCLEATED RED BLOOD CELLS 0 /100 WBC 0-0 (BEAKER) (test code = 413) Surgically obtained culture + gram [id number] 12:51:44 Test Item Value Reference Range Interpretation Comments Result (test code = 6463-4) No growth Gram Stain Result (test No organisms seen code = 1123) TR (test code = TR) [facility] [id number] 12:51:44 Test Item Value Reference Range Interpretation Comments Result (test code = 6463-4) No growth Gram Stain Result (test No organisms seen code = 1123) TR (test code = TR) [facility] GRAM [id number] 12:51:44 Test Item Value Reference Range Interpretation Comments CULTURE (BEAKER) (test code No growth = 1095) GRAM STAIN RESULT (BEAKER) 1+ WBCs (test code = 1123) GRAM STAIN RESULT (BEAKER) No organisms seen (test code = 446182) Body Fluid Culture + Gram [id number] 12:51:15 Test Item Value Reference Range Interpretation Comments Result (test code = 6463-4) No growth Gram Stain Result (test No organisms seen code = 1123) TR (test code = TR) [facility] [id number] 12:51:15 Test Item Value Reference Range Interpretation Comments Result (test code = 6463-4) No growth Gram Stain Result (test No organisms seen code = 1123) TR (test code = TR) [facility]AM [id number] 12:51:15 Test Item Value Reference Range Interpretation Comments CULTURE (BEAKER) (test code No growth = 1095) GRAM STAIN RESULT (BEAKER) 3+ WBCs (test code = 1123) GRAM STAIN RESULT (BEAKER) No organisms seen (test code = 548504) SURGICALLY OBTAINED CULTURE + GRAM [id number] 12:49:49 Test Item Value Reference Range Interpretation Comments CULTURE (BEAKER) (test code No growth = 1095) GRAM STAIN RESULT (BEAKER) <1+ WBCs (test code = 1123) GRAM STAIN RESULT (BEAKER) No organisms seen (test code = 734346) SURGICALLY OBTAINED CULTURE + GRAM [id number] 12:49:10 Test Item Value Reference Range Interpretation Comments CULTURE (BEAKER) (test code No growth = 1095) GRAM STAIN RESULT (BEAKER) 2+ WBCs (test code = 1123) GRAM STAIN RESULT (BEAKER) No organisms seen (test code = 350307) POCT-GLUCOSE [id number] 12:34:54 Test Item Value Reference Range Interpretation Comments POC-GLUCOSE METER 117 mg/dL 70-110 H : TESTED A T [facility] (BEAKER) (test code = [place], 1538) [address]: Unified Communications Engineer/Techni krupa ID = [id number] for Sh ah, Nevel RAD, CHEST, 1 VIEW, NON [id number] 09:28:00Reason for exam:->s/p thoracotomyShould this be performed at the bedside?->Yes [facility] 1945 Sex: FFINAL REPORT CLINICAL HISTORY: s/p thoracotomy TECHNIQUE: 1 view of the chest. COMPARISON: 03/05/2022 IMPRESSION: Right jugular line and three right chest tubes remain. Right hemithorax pleural parenchymal opacification again seen with a right basilar pneumothorax, grossly unchanged. Mild left lung airspace opacity again seen with a trace left effusion. The cardiomediastinal silhouette is magnified by technique. Right chest wall subcutaneous emphysema appears decreased. Signed: Sloan Steiner MDReport Verified Date/Time: 03/06/2022 09:28:52 Reading Location: [address] ReadingRoom POCT-GLUCOSE METER 2022-03-06 08:28:08 Test Item Value Reference Range Interpretation Comments POC-GLUCOSE METER 90 mg/dL 70-110 : TESTED A T [facility] (BEAKER) (test code = [place], 1538) [address]: Unified Communications Engineer/Techni krupa ID = [id number] for Kamaljit(contract )Bib CBC W/PLT COUNT & AUTO [id number] 05:20:50 Test Item Value Reference Range Interpretation Comments WHITE BLOOD CELL COUNT (BEAKER) 13.9 K/ L 3.5-10.5 H (test code = 775) RED BLOOD CELL COUNT (BEAKER) 2.70 M/ L 3.93-5.22 L (test code = 761) HEMOGLOBIN (BEAKER) (test code = 6.8 GM/DL 11.2-15.7 L 410) HEMATOCRIT (BEAKER) (test code = 21.3 % 34.1-44.9 L 411) MEAN CORPUSCULAR VOLUME (BEAKER) 79 fL 79-95 (test code = 753) MEAN CORPUSCULAR HEMOGLOBIN 25.2 pg 25.6-32.2 L (BEAKER) (test code = 751) MEAN CORPUSCULAR HEMOGLOBIN CONC 31.9 GM/DL 32.2-35.5 L (BEAKER) (test code = 752) RED CELL DISTRIBUTION WIDTH 17.6 % 11.7-14.4 H (BEAKER) (test code = 412) PLATELET COUNT (BEAKER) (test 240 K/CU MM 150-450 code = 756) MEAN PLATELET VOLUME (BEAKER) 9.8 fL 9.4-12.3 (test code = 754) NUCLEATED RED BLOOD CELLS 0 /100 WBC 0-0 (BEAKER) (test code = 413) NEUTROPHILS RELATIVE PERCENT 72 % (BEAKER) (test code = 429) LYMPHOCYTES RELATIVE PERCENT 20 % (BEAKER) (test code = 430) MONOCYTES RELATIVE PERCENT 6 % (BEAKER) (test code = 431) EOSINOPHILS RELATIVE PERCENT 2 % (BEAKER) (test code = 432) BASOPHILS RELATIVE PERCENT 0 % (BEAKER) (test code = 437) NEUTROPHILS ABSOLUTE COUNT 9.97 K/ L 1.56-6.13 H (BEAKER) (test code = 670) LYMPHOCYTES ABSOLUTE COUNT 2.71 K/ L 1.18-3.74 (BEAKER) (test code = 414) MONOCYTES ABSOLUTE COUNT (BEAKER) 0.88 K/ L 0.24-0.36 H (test code = 415) EOSINOPHILS ABSOLUTE COUNT 0.23 K/ L 0.04-0.36 (BEAKER) (test code = 416) BASOPHILS ABSOLUTE COUNT (BEAKER) 0.04 K/ L 0.01-0.08 (test code = 417) IMMATURE GRANULOCYTES-RELATIVE 0.40 % 0.00-1.00 PERCENT (BEAKER) (test code = 2801) [id number] 05:02:45 Test Item Value Reference Range Interpretation Comments MAGNESIUM (BEAKER) 1.7 mg/dL 1.6-2.6 Specimen slightly (test code = 627) hemolyzed Unified Communications Engineer ID - PIAYA [id number] 05:02:45 Test Item Value Reference Range Interpretation Comments PHOSPHORUS (BEAKER) 3.2 mg/dL 2.3-4.7 Specimen slightly (test code = 604) hemolyzed Unified Communications Engineer ID - DEEPA LBASIC METABOLIC [id number] 05:02:45 Test Item Value Reference Range Interpretation Comments SODIUM (BEAKER) 136 meq/L 136-145 (test code = 381) POTASSIUM 3.9 meq/L 3.5-5.1 Specimen slight ly (BEAKER) (test hemolyzed code = 379) CHLORIDE (BEAKER) 105 meq/L 98-107 (test code = 382) CO2 (BEAKER) 26 meq/L 22-29 (test code = 355) BLOOD UREA 10 mg/dL 7-21 NITROGEN (BEAKER) (test code = 354) CREATININE 0.53 mg/dL 0.57-1.25 L Specimen slight ly (BEAKER) (test hemolyzed code = 358) GLUCOSE RANDOM 92 mg/dL 70-105 (BEAKER) (test code = 652) CALCIUM (BEAKER) 8.9 mg/dL 8.4-10.2 (test code = 697) EGFR (BEAKER) 96 Interpretatio n of eGFR (test code = mL/min/1.73 values Stage D escription 1092) sq m Result G1 Cheryl l or high >=90 G2 Mildly decreased 60-89 G3a Mildl y to moderately 45-5 9 G3b Moderately to s everely 30-44 G4 Severl y decreased 15-29 G5 Kidney failure <15Reported eGF R is based on the CKD-EPI 2020 equation that d oes not use a race coefficientEsti mated GFR is not as accur ate as Creatinine Yanci cueva in predicting glom erular filtration rate . Estimated GFR is not appl icable for dialysis patien ts Unified Communications Engineer ID - PIYUSUF LPOCT-GLUCOSE [id number] 22:58:05 Test Item Value Reference Range Interpretation Comments POC-GLUCOSE METER 101 mg/dL 70-110 : TESTED A T [facility] (BEAKER) (test code = [place] Jim[place] [facility], 1538) [address]: Unified Communications Engineer/Techni krupa ID = [id number] for Odette Ruelas POCT-GLUCOSE [id number] 17:13:21 Test Item Value Reference Range Interpretation Comments POC-GLUCOSE METER 95 mg/dL 70-110 : TESTED A T [facility] 6720 (BEAKER) (test code = [place]enes [place], 1538) [address]: Unified Communications Engineer/Techni krupa ID = [id number] for Gunnar Rivera POCT-GLUCOSE [id number] 11:16:25 Test Item Value Reference Range Interpretation Comments POC-GLUCOSE METER 116 mg/dL 70-110 H : TESTED A T [facility] 6720 (BEAKER) (test code = [place], 1538) 109[address]: Unified Communications Engineer/Techni krupa ID = [id number] for Manish Brewer Body fluid cell count with [id number] 10:36:54 Test Item Value Reference Range Interpretation Comments Appearance (test code Cloudy Clear A = 9335-1) Color (test code = Yellow Colorless, Straw A 6824-7) RBCs (test code = 1000 See_Comment H [Automate d 88184-8) message] The system which generated this result transmit warren reference range : <=1 /cu mm. The reference range was not used to interpret this result as normal/abnormal . Adjusted WBC Count 6197 See_Comment H [Automat ed (test code = 44679-9) messag e] The system which generated this result transmit warren reference range : <=5 /cu mm. The reference range was not used to interpret this result as normal/abnormal . Lining Cells (test 0 See_Comment [Automat ed code = 51321-0) message] The system which generated this result transmit warren reference range : <=1 /cu mm. The reference range was not used to interpret this result as normal/abnormal . % Segs (test code = 87 % 77588-3) % Lymphs (test code = 6 % 09022-5) % Monos (test code = 7 % 50548-9) % Eos (test code = 0 % 99149-0) % Baso (test code = 0 % 23978-6) Interpretation (test Agree with code = 29226-3) differential. Pathologist: (test Karlee Gali, code = 2620) M.D (electronic signature) Container Body Fluid EDTA Tube (test code = 2873) Lab Interpretation Abnormal (test code = 95768-2) [facility] with [id number] 10:36:54 Test Item Value Reference Range Interpretation Comments Appearance (test code Cloudy Clear A = 9335-1) Color (test code = Yellow Colorless, Straw A 6824-7) RBCs (test code = 1000 See_Comment H [Automate d 91016-5) message] The system which generated this result transmit warren reference range : <=1 /cu mm. The reference range was not used to interpret this result as normal/abnormal . Adjusted WBC Count 6197 See_Comment H [Automat ed (test code = 55891-3) messag e] The system which generated this result transmit warren reference range : <=5 /cu mm. The reference range was not used to interpret this result as normal/abnormal . Lining Cells (test 0 See_Comment [Automat ed code = 22510-5) message] The system which generated this result transmit warren reference range : <=1 /cu mm. The reference range was not used to interpret this result as normal/abnormal . % Segs (test code = 87 % 55083-6) % Lymphs (test code = 6 % 78162-1) % Monos (test code = 7 % 39832-8) % Eos (test code = 0 % 80760-8) % Baso (test code = 0 % 18871-9) Interpretation (test Agree with code = 64683-0) differential. Pathologist: (test Karlee Pate, code = 2620) M.D (electronic signature) Container Body Fluid EDTA Tube (test code = 2873) Lab Interpretation Abnormal (test code = 75993-5) [facility] WITH [id number] 10:36:54 Test Item Value Reference Range Interpretation Comments APPEARANCE FLUID Cloudy Clear A (BEAKER) (test code = 510) COLOR FLUID Yellow Colorless, Straw A (BEAKER) (test code = 511) RBC FLUID (BEAKER) 1000 /cu mm See_Comment H [Automat ed (test code = 513) message] T he system which generated this result transmit warren reference range : <=1. The refere nce range was not u sed to interpret th is result as normal/abnormal . ADJUSTED WBC FLUID 6197 /cu mm See_Comment H [Automat ed (BEAKER) (test code message] The = 1691) system which generated this result transmit warren reference range : <=5. The refere nce range was not u sed to interpret th is result as normal/abnormal . LINING CELLS 0 /cu mm See_Comment [Automated (BEAKER) (test code message] The = 1590) system which generated this result transmit warren reference range : <=1. The refere nce range was not u sed to interpret th is result as normal/abnormal . NEUTROPHILS FLUID 87 % (BEAKER) (test code = 1656) LYMPHS FLUID 6 % (BEAKER) (test code = 488) MONO/MACROPHAGE 7 % FLUID (BEAKER) (test code = 489) EOSINOPHILS FLUID 0 % (BEAKER) (test code = 491) BASO FLUID (BEAKER) 0 % (test code = 492) INTERPRETATION-210 Agree with (BEAKER) (test code differential. = 2619) [id number] Karlee Herlinda, 0 (BEAKER) (test M.D (electronic code = 2620) signature) CONTAINER BODY EDTA Tube FLUID (BEAKER) (test code = 2873) RAD, CHEST, 1 VIEW, NON [id number] 09:49:00Reason for exam:->s/p thoracotomyShould this be performed at the bedside?->Yes [facility] 1945 Sex: FFINAL REPORT Chest AP portable Comparison exam: 03/04/2022 History provided: Status post thoracotomy Patient has been extubated. Right jugular line remains in place. Three large bore right chest tubes remain in position with minute loculated right basilar pneumothorax. Airspace disease within the right lung unchanged. Left lung remains clear with vascularity normal. Signed: Tejas Daniel MDReport Verified Date/Time: 03/05/2022 09:49:53 Reading Location: [facility] Diagnostic Imaging Reading Room- [facility] 1.310.12 POCT-GLUCOSE [id number] 08:16:39 Test Item Value Reference Range Interpretation Comments POC-GLUCOSE METER 128 mg/dL 70-110 H : TESTED A T [facility] (BEAKER) (test code = H[place] Jimenes [facility], 1538) 25511: Unified Communications Engineer/Techni krupa ID = [id number] for Co Manish pierce CBC W/PLT COUNT & AUTO [id number] 04:01:40 Test Item Value Reference Range Interpretation Comments WHITE BLOOD CELL COUNT 18.1 K/ L 3.5-10.5 H (BEAKER) (test code = 775) RED BLOOD CELL COUNT 3.02 M/ L 3.93-5.22 L (BEAKER) (test code = 761) HEMOGLOBIN (BEAKER) 7.5 GM/DL 11.2-15.7 L Discorda nt result (test code = 410) compared t o previous result. Clinica l correlation req uired HEMATOCRIT (BEAKER) 23.9 % 34.1-44.9 L (test code = 411) MEAN CORPUSCULAR 79 fL 79-95 VOLUME (BEAKER) (test code = 753) MEAN CORPUSCULAR 24.8 pg 25.6-32.2 L HEMOGLOBIN (BEAKER) (test code = 751) MEAN CORPUSCULAR 31.4 GM/DL 32.2-35.5 L HEMOGLOBIN CONC (BEAKER) (test code = 752) RED CELL DISTRIBUTION 17.6 % 11.7-14.4 H WIDTH (BEAKER) (test code = 412) PLATELET COUNT 237 K/CU MM 150-450 (BEAKER) (test code = 756) MEAN PLATELET VOLUME 9.1 fL 9.4-12.3 L (BEAKER) (test code = 754) NUCLEATED RED BLOOD 0 /100 WBC 0-0 CELLS (BEAKER) (test code = 413) NEUTROPHILS RELATIVE 73 % PERCENT (BEAKER) (test code = 429) LYMPHOCYTES RELATIVE 20 % PERCENT (BEAKER) (test code = 430) MONOCYTES RELATIVE 6 % PERCENT (BEAKER) (test code = 431) EOSINOPHILS RELATIVE 0 % PERCENT (BEAKER) (test code = 432) BASOPHILS RELATIVE 0 % PERCENT (BEAKER) (test code = 437) NEUTROPHILS ABSOLUTE 13.21 K/ L 1.56-6.13 H COUNT (BEAKER) (test code = 670) LYMPHOCYTES ABSOLUTE 3.59 K/ L 1.18-3.74 COUNT (BEAKER) (test code = 414) MONOCYTES ABSOLUTE 1.13 K/ L 0.24-0.36 H COUNT (BEAKER) (test code = 415) EOSINOPHILS ABSOLUTE 0.05 K/ L 0.04-0.36 COUNT (BEAKER) (test code = 416) BASOPHILS ABSOLUTE 0.04 K/ L 0.01-0.08 COUNT (BEAKER) (test code = 417) IMMATURE 0.60 % 0.00-1.00 GRANULOCYTES-RELATIVE PERCENT (BEAKER) (test code = 2801) Result verified and resulted as per rn b#[id number] 01:39:34 Test Item Value Reference Range Interpretation Comments MAGNESIUM (BEAKER) (test code = 2.3 mg/dL 1.6-2.6 627) Unified Communications Engineer ID - ANGELES [id number] 01:39:34 Test Item Value Reference Range Interpretation Comments PHOSPHORUS (BEAKER) (test code = 3.0 mg/dL 2.3-4.7 604) Unified Communications Engineer ID - ANGELES MBASIC METABOLIC [id number] 01:39:33 Test Item Value Reference Range Interpretation Comments SODIUM (BEAKER) 136 meq/L 136-145 (test code = 381) POTASSIUM 3.7 meq/L 3.5-5.1 (BEAKER) (test code = 379) CHLORIDE (BEAKER) 107 meq/L 98-107 (test code = 382) CO2 (BEAKER) 23 meq/L 22-29 (test code = 355) BLOOD UREA 13 mg/dL 7-21 NITROGEN (BEAKER) (test code = 354) CREATININE 0.67 mg/dL 0.57-1.25 (BEAKER) (test code = 358) GLUCOSE RANDOM 128 mg/dL 70-105 H (BEAKER) (test code = 652) CALCIUM (BEAKER) 8.6 mg/dL 8.4-10.2 (test code = 697) EGFR (BEAKER) 91 Interpretatio n of eGFR (test code = mL/min/1.73 values Stage De scription 1092) sq m Result G1 Cheryl l or high >=90 G2 Mildly decreased 60-89 G3a Mild ly to moderately 45-5 9 G3b Moderately to s everely 30-44 G4 Severl y decreased 15-29 G5 Kidney failure <15Reported eGF R is based on the CKD-EPI 2020 equation that d oes not use a race coefficientEsti mated GFR is not as accur ate as Creatinine Yanci anay in predicting glom erular filtration rate . Estimated GFR is not appl icable for dialysis patien ts Unified Communications Engineer ID - ANGELES MPOCT-GLUCOSE [id number] 22:10:13 Test Item Value Reference Range Interpretation Comments POC-GLUCOSE METER 146 mg/dL 70-110 H : TESTED A T [facility] 6720 ([place]) (test code = [facility], 1538) [address]: Unified Communications Engineer/Techni krupa ID = [id number] for [place] MS, SENORA POCT-GLUCOSE [id number] 16:15:52 Test Item Value Reference Range Interpretation Comments POC-GLUCOSE METER 167 mg/dL 70-110 H : TESTED A T [facility] 6720 (BEAKER) (test code = [facility] [employer] [facility], 1538) 65055: Unified Communications Engineer/Techni krupa ID = [id number] for Ke y, Omer POCT-GLUCOSE [id number] 13:49:25 Test Item Value Reference Range Interpretation Comments POC-GLUCOSE METER 181 mg/dL 70-110 H : TESTED A T [facility] 6720 (BEAKER) (test code = [facility] [employer] [facility], 1538) 53220: Unified Communications Engineer/Techni krupa ID = [id number] for Ke y, Hemantie [id number] 10:07:40 Test Item Value Reference Range Interpretation Comments Cytology (test code = See Separate Report [id number]) [facility] 10:07:40 Test Item Value Reference Range Interpretation Comments Cytology (test code = See Separate Report 6419) [facility] [id number] 10:07:40 Test Item Value Reference Range Interpretation Comments CYTOLOGY RESULT POINTER See Separate Report (BEAKER) (test code = 2629) Wound [id number] 09:32:50 Test Item Value Reference Range Interpretation Comments Result (test code = 6463-4) 1+ Skin elena Gram Stain Result (test No organisms seen code = 1123) [facility] [id number] 09:32:50 Test Item Value Reference Range Interpretation Comments Result (test code = 6463-4) 1+ Skin elena Gram Stain Result (test No organisms seen code = 1123) [facility] C[facility] + GRAM [id number] 09:32:50 Test Item Value Reference Range Interpretation Comments CULTURE (BEAKER) (test code 1+ Skin elena = 1095) GRAM STAIN RESULT (BEAKER) 2+ WBCs (test code = 1123) GRAM STAIN RESULT (BEAKER) No organisms seen (test code = 69218) (CELLAVISION MANUAL DIFF)2022-03-04 07:35:21 Test Item Value Reference Range Interpretation Comments NEUTROPHILS - REL 84 % (CELLAVISION)(BEAKER) (test code = 2816) LYMPHOCYTES - REL 5 % (CELLAVISION)(BEAKER) (test code = 2817) MONOCYTES - REL 5 % (CELLAVISION)(BEAKER) (test code = 2818) BANDS - REL (CELLAVISION)(BEAKER) 6 % 0-10 (test code = 2826) NEUTROPHILS - ABS 30.41 K/ul 1.56-6.13 H (CELLAVISION)(BEAKER) (test code = 2830) LYMPHOCYTES - ABS 1.81 K/ul 1.18-3.74 (CELLAVISION)(BEAKER) (test code = 2831) MONOCYTES - ABS 1.81 K/uL 0.24-0.36 H (CELLAVISION)(BEAKER) (test code = 2832) BANDS - ABS (CELLAVISION)(BEAKER) 2.17 K/uL 0.00-0.80 H (test code = 2840) TOTAL COUNTED (BEAKER) (test code 100 = 1351) WBC MORPHOLOGY (BEAKER) (test code Normal = 487) PLT MORPHOLOGY (BEAKER) (test code Normal = 486) ANISOCYTOSIS (BEAKER) (test code = 1+ few 961) MICROCYTES (BEAKER) (test code = 1+ few 965) POIKILOCYTES (BEAKER) (test code = 1+ few 966) NORMA CELLS (BEAKER) (test code = 1+ few 474) ARTIFACT (CELLAVISION)(BEAKER) Present (test code = 3432) PLATELET CONCENTRATION Increased (CELLAVISION)(BEAKER) (test code = 3438) Unified Communications Engineer ID - Pinky OverholtUser comments: Slide comments:CBC W/PLT COUNT & AUTO [id number] 07:35:20 Test Item Value Reference Range Interpretation Comments WHITE BLOOD CELL COUNT (BEAKER) 36.2 K/ L 3.5-10.5 H (test code = 775) RED BLOOD CELL COUNT (BEAKER) 4.42 M/ L 3.93-5.22 (test code = 761) HEMOGLOBIN (BEAKER) (test code = 11.0 GM/DL 11.2-15.7 L 410) HEMATOCRIT (BEAKER) (test code = 34.3 % 34.1-44.9 411) MEAN CORPUSCULAR VOLUME (BEAKER) 78 fL 79-95 L (test code = 753) MEAN CORPUSCULAR HEMOGLOBIN 24.9 pg 25.6-32.2 L (BEAKER) (test code = 751) MEAN CORPUSCULAR HEMOGLOBIN CONC 32.1 GM/DL 32.2-35.5 L (BEAKER) (test code = 752) RED CELL DISTRIBUTION WIDTH 16.9 % 11.7-14.4 H (BEAKER) (test code = 412) PLATELET COUNT (BEAKER) (test 462 K/CU MM 150-450 H code = 756) MEAN PLATELET VOLUME (BEAKER) 9.2 fL 9.4-12.3 L (test code = 754) NUCLEATED RED BLOOD CELLS 0 /100 WBC 0-0 (BEAKER) (test code = 413) POCT-GLUCOSE [id number] 06:41:39 Test Item Value Reference Range Interpretation Comments POC-GLUCOSE METER 192 mg/dL 70-110 H : TESTED A T [facility] 6720 (BEAKER) (test code = [place], 1538) [address]: Unified Communications Engineer/Techni krupa ID = [id number] for [place] [facility] SPIN/CONCENTRATION [id number] 05:35:00 Test Item Value Reference Range Interpretation Comments Concentration charged (test code = Done 2657) [facility] [id number] 05:35:00 Test Item Value Reference Range Interpretation Comments Concentration charged (test code = Done 2657) [facility] [id number] 05:35:00 Test Item Value Reference Range Interpretation Comments CONCENTRATION CHARGED (BEAKER) (test Done code = 2657) SPIN/CONCENTRATION [id number] 05:34:47 Test Item Value Reference Range Interpretation Comments CONCENTRATION CHARGED (BEAKER) (test Done code = 2657) Blood gas, [id number] 05:09:09 Test Item Value Reference Range Interpretation Comments pH, Arterial (test code 7.44 7.35-7.45 = 2744-1) pCO2, Arterial (test 28 See_Comment L [Autom ated code = 2018-10) message] The system which generated this result transmitted reference range : 35 - 45 mm Hg. The reference range was not used to interpret this result as normal/abnormal . pO2, Arterial (test 199 See_Comment H [Automa warren code = 2703-7) message] The system which generated this result transmitted reference range : 80 - 90 mm Hg. The reference range was not used to interpret this result as normal/abnormal . O2 Sat, Arterial (test 99.4 % 96.0-97.0 H code = 2708-6) HCO3, Arterial (test 18 mmol/L 21-29 L code = 1960-4) Base Excess, Arterial -4.9 mmol/L -2.0-3.0 L (test code = 1925-7) Patient Temperature 36.5 (test code = 8310-5) FIO2 (test code = 1819) 40 Lab Interpretation Abnormal (test code = 17050-2) [facility] [id number] 05:09:09 Test Item Value Reference Range Interpretation Comments pH, Arterial (test code 7.44 7.35-7.45 = 2744-1) pCO2, Arterial (test 28 See_Comment L [Autom ated code = 2018-10) message] The system which generated this result transmitted reference range : 35 - 45 mm Hg. The reference range was not used to interpret this result as normal/abnormal . pO2, Arterial (test 199 See_Comment H [Automa warren code = 2703-7) message] The system which generated this result transmitted reference range : 80 - 90 mm Hg. The reference range was not used to interpret this result as normal/abnormal . O2 Sat, Arterial (test 99.4 % 96.0-97.0 H code = 2708-6) HCO3, Arterial (test 18 mmol/L 21-29 L code = 1960-4) Base Excess, Arterial -4.9 mmol/L -2.0-3.0 L (test code = 1925-7) Patient Temperature 36.5 (test code = 8310-5) FIO2 (test code = 1819) 40 Lab Interpretation Abnormal (test code = 28410-4) [facility], [id number] 05:09:09 Test Item Value Reference Range Interpretation Comments PH ARTERIAL (BEAKER) (test code = 7.44 7.35-7.45 383) PCO2 ARTERIAL (BEAKER) (test code 28 mm Hg 35-45 L = 384) PO2 ARTERIAL (BEAKER) (test code 199 mm Hg 80-90 H = 385) O2 SATURATION ARTERIAL (BEAKER) 99.4 % 96.0-97.0 H (test code = 386) HCO3 ARTERIAL (BEAKER) (test code 18 mmol/L 21-29 L = 388) BASE EXCESS ARTERIAL (BEAKER) -4.9 mmol/L -2.0-3.0 L (test code = 387) PATIENT TEMPERATURE (BEAKER) 36.5 (test code = 1818) FIO2 (BEAKER) (test code = 1819) 40.0 RAD, CHEST, 1 VIEW, NON [id number] 04:55:00Reason for exam:->s/p thoracotomy with chest tubesShould this be performed at the bedside?->Yes [facility] 1945 Sex: FFINAL REPORT RAD, CHEST, 1 VIEW, NON DEPT INDICATION: s/p thoracotomy with chest tubes COMPARISON: 03/01/2022 FINDINGS: Portable frontal view of the chest. IMPRESSION: Support Lines: The endotracheal tube terminates 2.3 cm cephalad to the mercy. Chest tubes terminate at the apex of the right hemithorax and the right chest base. Right transjugular central venous catheter terminates in the SVC. Lungs and pleura: Postsurgical changes status post right thoracotomy with right basilar airspace and pleural opacities compatible with loculated effusion and atelectasis. Left lung is clear. No pneumothorax. Heart and mediastinum: Stable contours. Additional findings: None. Signed: Wilner Copeland MDReport Verified Date/Time: 03/04/2022 04:55:28 POCT-GLUCOSE [id number] 03:54:53 Test Item Value Reference Range Interpretation Comments POC-GLUCOSE METER 180 mg/dL 70-110 H : TESTED A T [facility] 6720 (BEAKER) (test code = [facility], 1538) [address]: Unified Communications Engineer/Techni krupa ID = [id number] for As Enrrique yuan THROMBOELASTOGRAPH (TEG)2022-03-04 03:34:03 Test Item Value Reference Range Interpretation Comments TEG ACTIVATED CLOTTING TIME 3.6 minutes 4.0-7.0 L (BEAKER) (test code = 1407) TEG FIBRINOGEN ACTIVITY (BEAKER) 79.9 degrees 61.0-73.0 H (test code = 1408) TEG PLT. AGGREGATION (BEAKER) 77.4 MM 55.0-65.0 H (test code = 1409) TEG FIBRINOLYSIS (BEAKER) (test 0.0 % 0.0-5.0 code = 1410) TGH ACTIVATED CLOTTING TIME 3.7 minutes 4.0-7.0 L (BEAKER) (test code = 1411) TGH FIBRINOGEN ACTIVITY (BEAKER) 78.9 degrees 61.0-73.0 H (test code = 1412) TGH PLT. AGGREGATION (BEAKER) 77.7 MM 55.0-65.0 H (test code = 1413) TGH FIBRINOLYSIS (BEAKER) (test 0.0 % 0.0-5.0 code = 1414) BASIC METABOLIC [id number] 03:18:54 Test Item Value Reference Range Interpretation Comments SODIUM (BEAKER) 141 meq/L 136-145 (test code = 381) POTASSIUM 3.6 meq/L 3.5-5.1 (BEAKER) (test code = 379) CHLORIDE (BEAKER) 109 meq/L 98-107 H (test code = 382) CO2 (BEAKER) 17 meq/L 22-29 L (test code = 355) BLOOD UREA 8 mg/dL 7-21 NITROGEN (BEAKER) (test code = 354) CREATININE 0.71 mg/dL 0.57-1.25 (BEAKER) (test code = 358) GLUCOSE RANDOM 216 mg/dL 70-105 H (BEAKER) (test code = 652) CALCIUM (BEAKER) 9.0 mg/dL 8.4-10.2 (test code = 697) EGFR (BEAKER) 88 Interpretatio n of eGFR (test code = mL/min/1.73 values Stage De scription 1092) sq m Result G1 Cheryl l or high >=90 G2 Mildly decreased 60-89 G3a Mildl y to moderately 45-5 9 G3b Moderately to s everely 30-44 G4 Severl y decreased 15-29 G5 Kidney failure <15Reported eGF R is based on the CKD-EPI 2021 equation that d oes not use a race coefficientEsti mated GFR is not as accur ate as Creatinine Yanci cueva in predicting glom erular filtration rate . Estimated GFR is not appl icable for dialysis patien ts Unified Communications Engineer ID - ANGELES [id number] 03:18:54 Test Item Value Reference Range Interpretation Comments MAGNESIUM (BEAKER) (test code = 1.4 mg/dL 1.6-2.6 L 627) Unified Communications Engineer ID - ANGELES [id number] 03:18:54 Test Item Value Reference Range Interpretation Comments PHOSPHORUS (BEAKER) (test code = 3.9 mg/dL 2.3-4.7 604) Unified Communications Engineer ID Justina REYNOSO MLactic Acid, [id number] 02:56:51 Test Item Value Reference Range Interpretation Comments Lactate, Art (test 2.5 mmol/L 0.5-2.2 H Specimen code = 2874) slightly hemolyzed TR (test code = TR) Unified Communications Engineer ID Justina Lewis Lab Interpretation Abnormal (test code = 38121-4) [facility] HospitalLactic Acid, [id number] 02:56:51 Test Item Value Reference Range Interpretation Comments Lactate, Art (test 2.5 mmol/L 0.5-2.2 H Specimen code = 2874) slightly hemolyzed TR (test code = TR) Unified Communications Engineer ID Justina Lewis Lab Interpretation Abnormal (test code = 72526-6) [facility] HospitalLACTIC ACID, [id number] 02:56:51 Test Item Value Reference Range Interpretation Comments LACTATE BLOOD 2.5 mmol/L 0.5-2.2 H Specimen sligh tly ARTERIAL (2) (BEAKER) hemoly zed (test code = 2874) Unified Communications Engineer ID Justina [place] GAS, [id number] 02:34:51 Test Item Value Reference Range Interpretation Comments PH ARTERIAL (BEAKER) (test code = 7.53 7.35-7.45 H 383) PCO2 ARTERIAL (BEAKER) (test code 21 mm Hg 35-45 L = 384) PO2 ARTERIAL (BEAKER) (test code 223 mm Hg 80-90 H = 385) O2 SATURATION ARTERIAL (BEAKER) 99.6 % 96.0-97.0 H (test code = 386) HCO3 ARTERIAL (BEAKER) (test code 17 mmol/L 21-29 L = 388) BASE EXCESS ARTERIAL (BEAKER) -4.1 mmol/L -2.0-3.0 L (test code = 387) PATIENT TEMPERATURE (BEAKER) 36.5 (test code = 1818) FIO2 (BEAKER) (test code = 1819) 60.0 HGB/HCT (H&H)-Stat [id number] 23:48:23 Test Item Value Reference Range Interpretation Comments Hemoglobin (test code = 7.4 See_Comment L [Au tomated message] 718-7) The system [employer] generated this result transmitted ref erence range: 12.0 - 1 5.0 GM/DL. The refe rence range was not u sed to interpret this result as normal/abnor mal. Hematocrit (test code = 22.0 % 36.0-45.0 L 4544-3) Lab Interpretation (test Abnormal code = 25668-8) [facility] ([facility]&H[facility]Stat [id number] 23:48:23 Test Item Value Reference Range Interpretation Comments Hemoglobin (test code = 7.4 See_Comment L [Au tomated message] 718-7) The system [employer] generated this result transmitted ref erence range: 12.0 - 1 5.0 GM/DL. The refe rence range was not u sed to interpret this result as normal/abnor mal. Hematocrit (test code = 22.0 % 36.0-45.0 L 4544-3) Lab Interpretation (test Abnormal code = 77128-7) [facility]BL[facility], [id number] 23:48:23 Test Item Value Reference Range Interpretation Comments PH ARTERIAL (BEAKER) (test code = 7.33 7.35-7.45 L 383) PCO2 ARTERIAL (BEAKER) (test code 44 mm Hg 35-45 = 384) PO2 ARTERIAL (BEAKER) (test code 249 mm Hg 80-90 H = 385) O2 SATURATION ARTERIAL (BEAKER) 99.5 % 96.0-97.0 H (test code = 386) HCO3 ARTERIAL (BEAKER) (test code 23 mmol/L 21-29 = 388) BASE EXCESS ARTERIAL (BEAKER) -3.1 mmol/L -2.0-3.0 L (test code = 387) PATIENT TEMPERATURE (BEAKER) 36.0 (test code = 1818) FIO2 (BEAKER) (test code = 1819) 100.0 HGB/HCT (H&H) - STAT [id number] 23:48:23 Test Item Value Reference Range Interpretation Comments HEMOGLOBIN (BEAKER) (test code = 7.4 GM/DL 12.0-15.0 L 410) HEMATOCRIT (BEAKER) (test code = 22.0 % 36.0-45.0 L 411) Calcium, [id number] 23:47:56 Test Item Value Reference Range Interpretation Comments Calcium, Ion (test code = 1993-05) 1.23 mmol/L 1.12-1.27 pH, Blood (test code = 35353-8) 7.32 [facility], [id number] 23:47:56 Test Item Value Reference Range Interpretation Comments Calcium, Ion (test code = 1993-05) 1.23 mmol/L 1.12-1.27 pH, Blood (test code = 39829-4) 7.32 [facility] HospitalCALCIUM, [id number] 23:47:56 Test Item Value Reference Range Interpretation Comments CALCIUM IONIZED (BEAKER) (test 1.23 mmol/L 1.12-1.27 code = 698) PH, BLOOD (BEAKER) (test code = 7.32 1810) Potassium-Stat [id number] 23:46:37 Test Item Value Reference Range Interpretation Comments Potassium (test code = 2823-3) 3.5 meq/L 3.6-5.5 L Lab Interpretation (test code = Abnormal 93630-8) [facility]assium-Stat [id number] 23:46:37 Test Item Value Reference Range Interpretation Comments Potassium (test code = 2823-3) 3.5 meq/L 3.6-5.5 L Lab Interpretation (test code = Abnormal 80049-1) [facility] HospitalPOTASSIUM-STAT [id number] 23:46:37 Test Item Value Reference Range Interpretation Comments POTASSIUM (BEAKER) (test code = 3.5 meq/L 3.6-5.5 L 379) Glucose-Stat [id number] 23:46:36 Test Item Value Reference Range Interpretation Comments Glucose (test code = 2345-7) 176 mg/dL 70-110 H Lab Interpretation (test code = Abnormal 39820-0) [facility] [id number] 23:46:36 Test Item Value Reference Range Interpretation Comments Sodium (test code = 2951-2) 138 meq/L 136-145 Lab Interpretation (test code = Normal 83527-4) [facility]Glucose-Stat [id number] 23:46:36 Test Item Value Reference Range Interpretation Comments Glucose (test code = 2345-7) 176 mg/dL 70-110 H Lab Interpretation (test code = Abnormal 31125-9) [facility] [id number] 23:46:36 Test Item Value Reference Range Interpretation Comments Sodium (test code = 2951-2) 138 meq/L 136-145 Lab Interpretation (test code = Normal 65568-9) [facility]GLUCOSE-STAT [id number] 23:46:36 Test Item Value Reference Range Interpretation Comments GLUCOSE RANDOM (BEAKER) (test code 176 mg/dL 70-110 H = 652) SODIUM NA-STAT [id number] 23:46:36 Test Item Value Reference Range Interpretation Comments SODIUM (BEAKER) (test code = 381) 138 meq/L 136-145 POTASSIUM-STAT [id number] 23:00:05 Test Item Value Reference Range Interpretation Comments POTASSIUM (BEAKER) (test code = 3.2 meq/L 3.6-5.5 L 379) HGB/HCT (H&H) - STAT [id number] 23:00:05 Test Item Value Reference Range Interpretation Comments HEMOGLOBIN (BEAKER) (test code = 9.0 GM/DL 12.0-15.0 L 410) HEMATOCRIT (BEAKER) (test code = 26.0 % 36.0-45.0 L 411) BLOOD GAS, [id number] 23:00:04 Test Item Value Reference Range Interpretation Comments PH ARTERIAL (BEAKER) (test code = 7.32 7.35-7.45 L 383) PCO2 ARTERIAL (BEAKER) (test code 43 mm Hg 35-45 = 384) PO2 ARTERIAL (BEAKER) (test code 205 mm Hg 80-90 H = 385) O2 SATURATION ARTERIAL (BEAKER) 99.3 % 96.0-97.0 H (test code = 386) HCO3 ARTERIAL (BEAKER) (test code 22 mmol/L 21-29 = 388) BASE EXCESS ARTERIAL (BEAKER) -4.3 mmol/L -2.0-3.0 L (test code = 387) PATIENT TEMPERATURE (BEAKER) 36.0 (test code = 1818) FIO2 (BEAKER) (test code = 1819) 100.0 SODIUM NA-STAT [id number] 22:59:54 Test Item Value Reference Range Interpretation Comments SODIUM (BEAKER) (test code = 381) 136 meq/L 136-145 GLUCOSE-STAT [id number] 22:59:53 Test Item Value Reference Range Interpretation Comments GLUCOSE RANDOM (BEAKER) (test code 170 mg/dL 70-110 H = 652) HEPATIC FUNCTION [id number] 06:34:23 Test Item Value Reference Range Interpretation Comments TOTAL PROTEIN (BEAKER) (test code = 6.9 gm/dL 6.0-8.3 770) ALBUMIN (BEAKER) (test code = 1145) 3.0 g/dL 3.5-5.0 L BILIRUBIN TOTAL (BEAKER) (test code 0.3 mg/dL 0.2-1.2 = 377) BILIRUBIN DIRECT (BEAKER) (test 0.1 mg/dL 0.1-0.5 code = 706) ALKALINE PHOSPHATASE (BEAKER) (test 74 U/L 40-150 code = 346) AST (SGOT) (BEAKER) (test code = 11 U/L 5-34 353) ALT (SGPT) (BEAKER) (test code = < U/L 6-55 L 347) Unified Communications Engineer ID - MARCOBASIC METABOLIC [id number] 06:21:02 Test Item Value Reference Range Interpretation Comments SODIUM (BEAKER) 139 meq/L 136-145 (test code = 381) POTASSIUM 3.7 meq/L 3.5-5.1 (BEAKER) (test code = 379) CHLORIDE (BEAKER) 106 meq/L 98-107 (test code = 382) CO2 (BEAKER) 25 meq/L 22-29 (test code = 355) BLOOD UREA 6 mg/dL 7-21 L NITROGEN (BEAKER) (test code = 354) CREATININE 0.65 mg/dL 0.57-1.25 (BEAKER) (test code = 358) GLUCOSE RANDOM 101 mg/dL 70-105 (BEAKER) (test code = 652) CALCIUM (BEAKER) 9.7 mg/dL 8.4-10.2 (test code = 697) EGFR (BEAKER) 91 Interpretatio n of eGFR (test code = mL/min/1.73 values Stage De scription 1092) sq m Result G1 Cheryl l or high >=90 G2 Mildly decreased 60-89 G3a Mildl y to moderately 45-5 9 G3b Moderately to s everely 30-44 G4 Severl y decreased 15-29 G5 Kidney failure <15Reported eGF R is based on the CKD-EPI 2020 equation that d oes not use a race coefficientEsti mated GFR is not as accur ate as Creatinine Yanci anay in predicting glom erular filtration rate . Estimated GFR is not appl icable for dialysis patien ts Unified Communications Engineer ID - [id number] 06:21:02 Test Item Value Reference Range Interpretation Comments MAGNESIUM (BEAKER) (test code = 1.7 mg/dL 1.6-2.6 627) Unified Communications Engineer ID - MARCOCBC W/PLT COUNT & AUTO [id number] 05:40:39 Test Item Value Reference Range Interpretation Comments WHITE BLOOD CELL COUNT (BEAKER) 11.1 K/ L 3.5-10.5 H (test code = 775) RED BLOOD CELL COUNT (BEAKER) 3.86 M/ L 3.93-5.22 L (test code = 761) HEMOGLOBIN (BEAKER) (test code = 9.3 GM/DL 11.2-15.7 L 410) HEMATOCRIT (BEAKER) (test code = 29.7 % 34.1-44.9 L 411) MEAN CORPUSCULAR VOLUME (BEAKER) 77 fL 79-95 L (test code = 753) MEAN CORPUSCULAR HEMOGLOBIN 24.1 pg 25.6-32.2 L (BEAKER) (test code = 751) MEAN CORPUSCULAR HEMOGLOBIN CONC 31.3 GM/DL 32.2-35.5 L (BEAKER) (test code = 752) RED CELL DISTRIBUTION WIDTH 17.7 % 11.7-14.4 H (BEAKER) (test code = 412) PLATELET COUNT (BEAKER) (test 410 K/CU MM 150-450 code = 756) MEAN PLATELET VOLUME (BEAKER) 9.3 fL 9.4-12.3 L (test code = 754) NUCLEATED RED BLOOD CELLS 0 /100 WBC 0-0 (BEAKER) (test code = 413) NEUTROPHILS RELATIVE PERCENT 60 % (BEAKER) (test code = 429) LYMPHOCYTES RELATIVE PERCENT 31 % (BEAKER) (test code = 430) MONOCYTES RELATIVE PERCENT 6 % (BEAKER) (test code = 431) EOSINOPHILS RELATIVE PERCENT 2 % (BEAKER) (test code = 432) BASOPHILS RELATIVE PERCENT 0 % (BEAKER) (test code = 437) NEUTROPHILS ABSOLUTE COUNT 6.70 K/ L 1.56-6.13 H (BEAKER) (test code = 670) LYMPHOCYTES ABSOLUTE COUNT 3.49 K/ L 1.18-3.74 (BEAKER) (test code = 414) MONOCYTES ABSOLUTE COUNT (BEAKER) 0.62 K/ L 0.24-0.36 H (test code = 415) EOSINOPHILS ABSOLUTE COUNT 0.18 K/ L 0.04-0.36 (BEAKER) (test code = 416) BASOPHILS ABSOLUTE COUNT (BEAKER) 0.04 K/ L 0.01-0.08 (test code = 417) IMMATURE GRANULOCYTES-RELATIVE 0.60 % 0.00-1.00 PERCENT (BEAKER) (test code = 2801) Surgical pathology [id number] 20:56:41 Test Item Value Reference Range Interpretation Comments Case number (test code = [id number]) Surgical pathology See link below for report (test code = PDF Lab Report [id number]) Result status (test code This is Final Report = [id number]) for [id number] [facility] [id number] 11:47:05Surgical Pathology Report Case: [id number] Authorizing Provider: Cecil Delacruz MD Collected: 01/15/2022 08:00 AM Ordering Location: [address] MED/SURG Received: 02/27/2022 01:26 PM Pathologist: Karlee Pate MD Specimens: A) - Pleural, Right B) - Pleural ATTENTION: This specimen was received during a prolonged [facility] downtime. During this downtime, the original signed pathology report was faxed to the ordering provider. This pathology report has subsequently been scanned into [facility].Please see attached scanned pathology report. Signing Pathologist Direct Phone Line: [phone] signed by Karlee Pate MD on 03/02/2022 at 11:47 AMPT/[id number] 11:36:34 Test Item Value Reference Range Interpretation Comments PROTIME (BEAKER) (test 14.4 seconds 11.9-14.2 H code = 759) INR (BEAKER) (test 1.15 See_Comment [Automat ed code = 370) message] The sy stem which generated this result transmitted reference range : <=5.90. The reference range was not used to interpret this result as normal/abnormal . PARTIAL THROMBOPLASTIN 30.1 seconds 22.5-36.0 TIME (BEAKER) (test code = 760) RECOMMENDED COUMADIN/WARFARIN INR THERAPY RANGESSTANDARD DOSE: 2.0 - 3.0 Includes: PROPHYLAXIS for venous thrombosis, systemic embolization; TREATMENT for venous thrombosis and/or pulmonary embolus.HIGH RISK: Target INR is 2.5-3.5 for patients with mechanical heart valves.COMPREHENSIVE METABOLIC PANEL 2022-03-02 06:33:57 Test Item Value Reference Range Interpretation Comments TOTAL PROTEIN 6.9 gm/dL 6.0-8.3 (BEAKER) (test code = 770) ALBUMIN (BEAKER) 3.0 g/dL 3.5-5.0 L (test code = 1145) ALKALINE 70 U/L 40-150 PHOSPHATASE (BEAKER) (test code = 346) BILIRUBIN TOTAL 0.2 mg/dL 0.2-1.2 (BEAKER) (test code = 377) SODIUM (BEAKER) 140 meq/L 136-145 (test code = 381) POTASSIUM (BEAKER) 3.1 meq/L 3.5-5.1 L (test code = 379) CHLORIDE (BEAKER) 105 meq/L 98-107 (test code = 382) CO2 (BEAKER) (test 24 meq/L 22-29 code = 355) BLOOD UREA 7 mg/dL 7-21 NITROGEN (BEAKER) (test code = 354) CREATININE 0.62 mg/dL 0.57-1.25 (BEAKER) (test code = 358) GLUCOSE RANDOM 96 mg/dL 70-105 (BEAKER) (test code = 652) CALCIUM (BEAKER) 9.2 mg/dL 8.4-10.2 (test code = 697) AST (SGOT) 10 U/L 5-34 (BEAKER) (test code = 353) ALT (SGPT) < U/L 6-55 L (BEAKER) (test code = 347) EGFR (BEAKER) 92 Interpretatio n of eGFR (test code = 1092) mL/min/1.[address] age Description sq m Result G1 Cheryl l or high >=90 G2 Mildly decreased 60-89 G3a Mildl y to moderately 45-5 9 G3b Moderately to s everely 30-44 G4 Severl y decreased 15-29 G5 Kidne y failure <15Reported eGF R is based on the CKD-EPI 2020 equation that d oes not use a race coefficientEsti mated GFR is not as accur ate as Creatinine Yanci anay in predicting glom erular filtration rate . Estimated GFR is not appl icable for dialysis patien ts Unified Communications Engineer ID - GAYLA [id number] 05:48:19 Test Item Value Reference Range Interpretation Comments PREALBUMIN (BEAKER) (test code = 586) 9 mg/dL 14-45 L Unified Communications Engineer ID - EMMANUELCBC (HEMOGRAM ONLY)2022-03-02 05:10:25 Test Item Value Reference Range Interpretation Comments WHITE BLOOD CELL COUNT (BEAKER) 10.6 K/ L 3.5-10.5 H (test code = 775) RED BLOOD CELL COUNT (BEAKER) 4.04 M/ L 3.93-5.22 (test code = 761) HEMOGLOBIN (BEAKER) (test code = 9.4 GM/DL 11.2-15.7 L 410) HEMATOCRIT (BEAKER) (test code = 31.5 % 34.1-44.9 L 411) MEAN CORPUSCULAR VOLUME (BEAKER) 78 fL 79-95 L (test code = 753) MEAN CORPUSCULAR HEMOGLOBIN 23.3 pg 25.6-32.2 L (BEAKER) (test code = 751) MEAN CORPUSCULAR HEMOGLOBIN CONC 29.8 GM/DL 32.2-35.5 L (BEAKER) (test code = 752) RED CELL DISTRIBUTION WIDTH 17.7 % 11.7-14.4 H (BEAKER) (test code = 412) PLATELET COUNT (BEAKER) (test 383 K/CU MM 150-450 code = 756) MEAN PLATELET VOLUME (BEAKER) 10.2 fL 9.4-12.3 (test code = 754) NUCLEATED RED BLOOD CELLS 0 /100 WBC 0-0 (BEAKER) (test code = 413) SARS-CoV2/RT-PCR (Asymptomatic ONLY)2022-03-01 22:00:34 Test Item Value Reference Interpretation Comments Range SARS-COV2/RT-PCR Negative Negative The SARS-Co V-2 (test code = target nucleic 16893-3) acids are not detected in thi s specimen. Negat tyrone results do not preclude SARS-C oV-2 infection and should not be u sed as the sole bas is for patient management decisions. Nega tive results must be combined with clinical observations, patient history , and epidemiolog ical information. A false negative result may occu r if a specimen is improperly collected, transported or handled. This S ARS CoV-2 test is a rapid, real-roslyn e RT-PCR test intended for th e qualitative detection of nucleic acid fr om SARS-CoV-2 in a nasopharyngeal swab specimen collec warren from individual s suspected of COVID-19 by the ir healthcare provider. TR (test code = This test has been TR) authorized by FDA under an EUA for use by authorized laboratories. This test is only authorized for the duration of the declaration that circumstances exist justifying the authorization of emergency use of in vitro diagnostic tests for detection and/or diagnosis of COVID-19 under Section 564(b)(1) of the Federal Food, Drug and Cosmetic Act, 21 U.S.C. 360bbb-3(b)(1), unless the authorization is terminated or revoked sooner. Fact Sheet for Healthcare Providers: https://www.[employer]/Documents/Xp ert%20Xpress%20SAR S%20CoV-2/Fact%20S heets/302-2203%20S ARS-COV-2%20HEALTH CARE%20PROVIDERS%2 0FACT%20SHEET.pdf Fact Sheet for Healthcare Patients: https://www.[employer]/Documents/Xp ert%20Xpress%20SAR S%20CoV-2/Fact%20S heets/302-7741%20S ARS-COV-2%20PATIEN T%20FACT%20SHEET.p df Lab Interpretation Normal (test code = 50392-8) [facility]2022-03-01 22:00:34 Test Item Value Reference Interpretation Comments Range SARS-COV2/RT-PCR Negative Negative The SARS-Co V-2 (test code = target nucleic 77283-9) acids are not detected in thi s specimen. Negat tyrone results do not preclude SARS-C oV-2 infection and should not be u sed as the sole bas is for patient management decisions. Nega tive results must be combined with clinical observations, patient history , and epidemiolog ical information. A false negative result may occu r if a specimen is improperly collected, transported or handled. This S ARS CoV-2 test is a rapid, real-roslyn e RT-PCR test intended for th e qualitative detection of nucleic acid fr om SARS-CoV-2 in a nasopharyngeal swab specimen collec warren from individual s suspected of COVID-19 by the ir healthcare provider. TR (test code = This test has been TR) authorized by FDA under an EUA for use by authorized laboratories. This test is only authorized for the duration of the declaration that circumstances exist justifying the authorization of emergency use of in vitro diagnostic tests for detection and/or diagnosis of COVID-19 under Section 564(b)(1) of the Federal Food, Drug and Cosmetic Act, 21 U.S.C. 360bbb-3(b)(1), unless the authorization is terminated or revoked sooner. Fact Sheet for Healthcare Providers: https://www.[employer]/Documents/Xp ert%20Xpress%20SAR S%20CoV-2/Fact%20S heets/302-3802%20S ARS-COV-2%20HEALTH CARE%20PROVIDERS%2 0FACT%20SHEET.pdf Fact Sheet for Healthcare Patients: https://www.[employer]/Documents/Xp ert%20Xpress%20SAR S%20CoV-2/Fact%20S heets/302-3801%20S ARS-COV-2%20PATIEN T%20FACT%20SHEET.p df Lab Interpretation Normal (test code = 58190-6) [facility]2022-03-01 22:00:34 Test Item Value Reference Range Interpretation Comments SARS-COV2/RT-PCR Negative Negative The SARS-Co V-2 target (test code = nucleic acids a re not [id number]) detected in thi s specimen. Negative result s do not preclude SARS-C oV-2 infection and s hould not be used as the den e basis for patient managem ent decisions. Nega tive results must be combine d with clinical observ ations, patient history , and epidemiological information. A false negativ e result may occur if a spec imen is improperly kim ected, transported or handled. This SARS CoV-2 test is a rapid, real-time RT-PC R test intended for th e qualitative detection of nu cleic acid from SARS-CoV-2 in a nasopharyngeal swab specimen collected from individuals suspected of CO VID-19 by their healthcar e provider. This test has been authorized by FDA under an EUA for use by authorized laboratories. This test is only authorized for the duration of the declaration that circumstances exist justifying the authorization of emergency use of in vitro diagnostic tests for detection and/or diagnosis of COVID-19 under Section 564(b)(1) of the Federal Food, Drug and Cosmetic Act, 21 U.S.C. 360bbb-3(b)(1), unless the authorization is terminated or revoked sooner. Fact Sheet for Healthcare Providers: https://www.HeadCount.[employer] m/Documents/Xpert%20Xpress%20SARS%20CoV-2/Fact%20Sheets/3023802%00KIZO-LNO-4%20 HEALTHCARE%20PROVIDERS%20FACT%20SHEET.pdf Fact Sheet for Healthcare Patients: https://www.[employer]/Documents/Xpert%20Xp ress%20SARS%20CoV-2/Fact%20Sheets/3023801%50EWNF-MNQ-1%20PATIENT%20FACT%20SHEET .pdfCT, CHEST, WITH [id number] 18:01:00Eval for abdominal wall abscess/infection just underneath right breast on examUnlisted Reason for Exam - Click Yes and Enter Reason Below->YesUnlisted Reason for Exam->purulent drainage from right anterior chest wall s/p recent thoracentesis [facility] 1945 Sex: FFINAL REPORT CT of the Chest dated 03/01/2022 COMPARISON: January 21, 2022 CLINICAL INFORMATION: Chest wall painpurulent drainage from right anterior chest wall s/p recent thoracentesis Comment: Axial images of the chest were obtained from thoracic inlet to the upper abdomen with intravenousintravenous contrast. This exam was performed according to our departmental dose- optimization program, which includes automated exposure control, adjustment of the mA and/or kV according to patient size and/or use of interactive reconstruction technique. Heart is minimally enlarged. Great vessels are u nremarkable. No adenopathy in the mediastinum or perihilar region. Trachea and mainstem bronchi are patent. Loculated pleural effusion is seen in the right hemithorax. There is a enhancement of visceral and parietal pleura suspicious for empyema. Subsegmental atelectasis is seen in the right upper, right mid, and right lower lobe. The left lung is clear. Visualized upper abdomen demonstrates no focallesion. Impression: 1. Persistent loculated pleural collection in the right hemithorax with enhancement of visceral and parietal pleura suspicious for emphysema.2. Mild cardiomegaly.3. Subsegmental atelectasis in the right upper, mid, and lower lobes. Signed: [facility] Verified Date/Time: 18:01:47 CBC W/PLT COUNT & AUTO [id number] 17:31:31 Test Item Value Reference Range Interpretation Comments WHITE BLOOD CELL COUNT (BEAKER) 10.2 K/ L 3.5-10.5 (test code = 775) RED BLOOD CELL COUNT (BEAKER) 3.73 M/ L 3.93-5.22 L (test code = 761) HEMOGLOBIN (BEAKER) (test code = 8.9 GM/DL 11.2-15.7 L 410) HEMATOCRIT (BEAKER) (test code = 29.2 % 34.1-44.9 L 411) MEAN CORPUSCULAR VOLUME (BEAKER) 78 fL 79-95 L (test code = 753) MEAN CORPUSCULAR HEMOGLOBIN 23.9 pg 25.6-32.2 L (BEAKER) (test code = 751) MEAN CORPUSCULAR HEMOGLOBIN CONC 30.5 GM/DL 32.2-35.5 L (BEAKER) (test code = 752) RED CELL DISTRIBUTION WIDTH 17.5 % 11.7-14.4 H (BEAKER) (test code = 412) PLATELET COUNT (BEAKER) (test 425 K/CU MM 150-450 code = 756) MEAN PLATELET VOLUME (BEAKER) 9.5 fL 9.4-12.3 (test code = 754) NEUTROPHILS RELATIVE PERCENT 52 % (BEAKER) (test code = 429) LYMPHOCYTES RELATIVE PERCENT 41 % (BEAKER) (test code = 430) MONOCYTES RELATIVE PERCENT 6 % (BEAKER) (test code = 431) EOSINOPHILS RELATIVE PERCENT 1 % (BEAKER) (test code = 432) BASOPHILS RELATIVE PERCENT 0 % (BEAKER) (test code = 437) NEUTROPHILS ABSOLUTE COUNT 5.25 K/ L 1.56-6.13 (BEAKER) (test code = 670) LYMPHOCYTES ABSOLUTE COUNT 4.21 K/ L 1.18-3.74 H (BEAKER) (test code = 414) MONOCYTES ABSOLUTE COUNT (BEAKER) 0.56 K/ L 0.24-0.36 H (test code = 415) EOSINOPHILS ABSOLUTE COUNT 0.09 K/ L 0.04-0.36 (BEAKER) (test code = 416) BASOPHILS ABSOLUTE COUNT (BEAKER) 0.01 K/ L 0.01-0.08 (test code = 417) IMMATURE GRANULOCYTES-RELATIVE 0.40 % 0.00-1.00 PERCENT (BEAKER) (test code = 2801) COMPREHENSIVE METABOLIC [id number] 16:27:32 Test Item Value Reference Range Interpretation Comments TOTAL PROTEIN 7.3 gm/dL 6.0-8.3 Specimen sligh tly (BEAKER) (test hemolyzed code = 770) ALBUMIN (BEAKER) 3.0 g/dL 3.5-5.0 L Specimen sl ightly (test code = 1145) hemolyzed ALKALINE 75 U/L 40-150 PHOSPHATASE (BEAKER) (test code = 346) BILIRUBIN TOTAL 0.3 mg/dL 0.2-1.2 Specimen sli ghtly (BEAKER) (test hemolyzed code = 377) SODIUM (BEAKER) 138 meq/L 136-145 (test code = 381) POTASSIUM (BEAKER) 3.7 meq/L 3.5-5.1 Specimen slightly (test code = 379) hemolyzed CHLORIDE (BEAKER) 106 meq/L 98-107 (test code = 382) CO2 (BEAKER) (test 23 meq/L 22-29 code = 355) BLOOD UREA 9 mg/dL 7-21 NITROGEN (BEAKER) (test code = 354) CREATININE 0.65 mg/dL 0.57-1.25 Specimen slight ly (BEAKER) (test hemolyzed code = 358) GLUCOSE RANDOM 93 mg/dL 70-105 (BEAKER) (test code = 652) CALCIUM (BEAKER) 9.3 mg/dL 8.4-10.2 (test code = 697) AST (SGOT) 11 U/L 5-34 Specimen slight ly (BEAKER) (test hemolyzed code = 353) ALT (SGPT) 6 U/L 6-55 Specimen slight ly (BEAKER) (test hemolyzed code = 347) EGFR (BEAKER) 91 Interpretatio n of eGFR (test code = 1092) mL/min/1.[address] age Description sq m Result G1 Cheryl l or high >=90 G2 Mildly decreased 60-89 G3a Mildl y to moderately 45-5 9 G3b Moderately to s everely 30-44 G4 Severl y decreased 15-29 G5 Kidney failure <15Reported eGF R is based on the CKD-EPI 2021 equation that d oes not use a race coefficientEsti mated GFR is not as accur ate as Creatinine Yanci anay in predicting glom erular filtration rate . Estimated GFR is not appl icable for dialysis patien ts Unified Communications Engineer ID - FREDDIECTIC ACID, [id number] 16:07:32 Test Item Value Reference Range Interpretation Comments LACTATE BLOOD VENOUS 0.95 mmol/L 0.50-2.20 Specime n slightly (2) (BEAKER) (test hemolyzed code = 2872) Unified Communications Engineer ID - LYNDON, CHEST, 2 [id number] 15:29:00Reason for exam:- >[facility] : 1945 Sex: FFINAL REPORT AP view of the chest dated 03/01/2022 COMPARISON: January 21, 2022 CLINICAL INFORMATION: WOUND CHECK Comment: Heart is normal in size. Pulmonary vasculature is unremarkable. Lungs are clear. No pulmonary infiltrate or pleural effusion is present. Impression: No active cardiopulmonary disease. Loculated pleural effusion is seen in the right lower hemithorax decreased since priorstudy. Subsegmental atelectasis is seen in the right mid and right lower lobes. The rest of the lungs are clear. No pneumothorax is present. IMPRESSION: Loculated right pleural effusion with right mid and lower lobes subsegmental atelectasis. Signed: Wilner [place] Verified Date/Time: 5:29:13 Cytology (non-gynecological) [id number] 15:13:14 Test Item Value Reference Range Interpretation Comments Case number (test [id number] code = [id number]) Cytology See link below for PDF (non-gynecological) Lab Report report (test code = 1178) Result status (test This is Supplemental code = [id number]) Report for [id number] [facility] [id number] 14:11:00 Test Item Value Reference Range Interpretation Comments Anaerobic No anaerobic Specimen culture isolate organisms InformationS pecimen (test code = isolated. Source: Drainag eSpecimen 62050-4) Site: Liver: pe ri-hepatic mass biopsy and culture [facility] [id number] 02:08:00 Test Item Value Reference Range Interpretation Comments Aerobic culture No growth Specimen isolate (test after 2 days. InformationSp ecimen code = 39473-9) Source: venu Antoniaecimen Site: Liver: pe ri-hepatic mass biopsy and culture [facility] [id number] 18:03:00 Test Item Value Reference Range Interpretation Comments Fungus smear No fungi Specimen (test code = observed. InformationSpec imen Source: 1443) DrainageSpecime n Site: Liver: sohan-hep atic mass biopsy and cult ure [facility] [id number] 11:12:00 Test Item Value Reference Range Interpretation Comments AFB stain No acid fast Specimen (test code = bacilli (AFB) InformationSpe cimen 676-7) seen. Source: Drainag eSpecimen Site: Liver: pe ri-hepatic mass biopsy and culture [facility] [id number] 03:22:00 Test Item Value Reference Range Interpretation Comments Gram stain No organisms Specimen isolate (test seen InformationSpe cimen code = 1469) Source: Drainag eSpecimen Site: Liver: pe ri-hepatic mass biopsy and culture [facility] [id number] 16:18:15Medical Cytology Report Case: [id number] Authorizing Provider: Mauricio Britton Collected: 01/28/2022 09:41 AM MD Afsaneh Ordering Location: [address] MED/SURG Received: 01/28/2022 03:58 PM Specimen: Pleural, Right ATTENTION: This specimen was received during a downtime event. The original signed pathology report was faxed to the ordering provider. The finalized report has been scanned as anattachment, below. In [facility], clinical documentation is located in the Media tab. Contact your Health I nformation Management department with any questions. Signing Pathologist Direct Phone Line: [phone] signed by Enio Paul MD on 01/30/2022 at 4:18 PMA. Pleural, Right.RAD, CHEST, 1 VIEW, NON [id number] 10:52:00[facility] 1945 Sex: FJohn Caban [id number] [address] [place] [address] portableCOMPARISON STUDY: 01/07/2022History provided: Follow-up pleural effusionModerately large amount of pleural fluid persists on the right despite yesterday'slarge volume thoracentesis. Underlying atelectasis within the right lower lobe. Left lung clear. Normal vascularity.Signed: Tejas Brasher Verified Date/Time: 01/08/2022 8:04:20 AM U/S, [id number] 10:22:00 [facility] 1945 Sex: FJohn Caban [id number] 04 19 45 ULTRASOUND GUIDED THORACENTESIS History provided: Large right pleuraleffusion PROCEDURE: Written informed consent was obtained. The chest was examined with ultrasound and a suitable site for thoracentesis was identified in the right hemithorax. The skin over this area was prepped and draped in sterile fashion. Lidocaine 2% was used for local anesthesia. With ultrasoundguidance, the pleural space was accessed with a one-stick 5 Jordanian sheathed needle. Approximately 1260 cc of greenish tinged fluid was aspirated. The patient complained of pain and shortness of breath and could not tolerate removal of any further fluid. The catheter was removed and a sterile dressing w as applied. The fluid was submitted to the laboratory as requested. IMPRESSION: Uneventful ultrasound guided thoracentesis. Signed: Tejas Brasher Verified Date/Time: 01/07/2022 9:48:56 AM 2D Echo W/Doppler(CW/PW/Color)2022-01-25 07:46:20Ejection FractionSLEH ECHO [facility] W/Doppler(CW/PW/Color)2022-01-25 07:46:20Ejection FractionSLE ECHO [facility]ARTLAB [facility]OL[facility] [id number] 04:41:50 Test Item Value Reference Range Interpretation Comments TOTAL PROTEIN 6.7 gm/dL 6.0-8.5 (BEAKER) (test code = 770) ALBUMIN (BEAKER) 2.7 g/dL 3.5-5.0 L (test code = 1145) ALKALINE 59 U/L 30-115 PHOSPHATASE (BEAKER) (test code = 346) BILIRUBIN TOTAL 0.2 mg/dL 0.1-1.2 (BEAKER) (test code = 377) SODIUM (BEAKER) 137 meq/L 135-148 (test code = 381) POTASSIUM (BEAKER) 3.6 meq/L 3.6-5.5 (test code = 379) CHLORIDE (BEAKER) 104 meq/L 98-106 (test code = 382) CO2 (BEAKER) (test 19 meq/L 20-29 L code = 355) BLOOD UREA 8 mg/dL 10-26 L NITROGEN (BEAKER) (test code = 354) CREATININE 0.67 mg/dL 0.50-1.20 (BEAKER) (test code = 358) GLUCOSE RANDOM 89 mg/dL 70-110 (BEAKER) (test code = 652) CALCIUM (BEAKER) 9.6 mg/dL 8.5-10.5 (test code = 697) AST (SGOT) 15 U/L 5-40 (BEAKER) (test code = 353) ALT (SGPT) 7 U/L 5-50 (BEAKER) (test code = 347) EGFR (BEAKER) 91 Interpretatio n of eGFR (test code = 1092) mL/min/1.[address] age Description sq m Result G1 Cheryl l or high >=90 G2 Mildly decreased 60-89 G3a Mildl y to moderately 45-5 9 G3b Moderately to s everely 30-44 G4 Severl y decreased 15-29 G5 Kidney failure <15Reported eGF R is based on the CKD-EPI 2020 equation that d oes not use a race coefficientEsti mated GFR is not as accur ate as Creatinine Yanci cueva in predicting glom erular filtration rate . Estimated GFR is not appl icable for dialysis patien ts Unified Communications Engineer ID - NOLICBC W/PLT COUNT & AUTO [id number] 04:21:14 Test Item Value Reference Range Interpretation Comments WHITE BLOOD CELL COUNT (BEAKER) 16.4 K/ L 4.0-10.0 H (test code = 775) RED BLOOD CELL COUNT (BEAKER) 3.39 M/ L 4.00-5.00 L (test code = 761) HEMOGLOBIN (BEAKER) (test code = 8.2 GM/DL 12.0-15.5 L 410) HEMATOCRIT (BEAKER) (test code = 25.2 % 36.0-46.0 L 411) MEAN CORPUSCULAR VOLUME (BEAKER) 74 fL 82-99 L (test code = 753) MEAN CORPUSCULAR HEMOGLOBIN 24.2 pg 27.0-33.0 L (BEAKER) (test code = 751) MEAN CORPUSCULAR HEMOGLOBIN CONC 32.5 GM/DL 32.0-36.0 (BEAKER) (test code = 752) RED CELL DISTRIBUTION WIDTH 19.5 % 12.0-15.0 H (BEAKER) (test code = 412) PLATELET COUNT (BEAKER) (test 450 K/CU MM 150-430 H code = 756) MEAN PLATELET VOLUME (BEAKER) 8.9 fL 6.0-11.5 (test code = 754) NUCLEATED RED BLOOD CELLS 0 /100 WBC 0-0 (BEAKER) (test code = 413) NEUTROPHILS RELATIVE PERCENT 73 % (BEAKER) (test code = 429) LYMPHOCYTES RELATIVE PERCENT 21 % (BEAKER) (test code = 430) MONOCYTES RELATIVE PERCENT 5 % (BEAKER) (test code = 431) EOSINOPHILS RELATIVE PERCENT 0 % (BEAKER) (test code = 432) BASOPHILS RELATIVE PERCENT 0 % (BEAKER) (test code = 437) NEUTROPHILS ABSOLUTE COUNT 11.90 K/ L 1.80-8.00 H (BEAKER) (test code = 670) LYMPHOCYTES ABSOLUTE COUNT 3.37 K/ L 1.48-4.50 (BEAKER) (test code = 414) MONOCYTES ABSOLUTE COUNT (BEAKER) 0.86 K/ L 0.00-1.30 (test code = 415) EOSINOPHILS ABSOLUTE COUNT 0.06 K/ L 0.00-0.50 (BEAKER) (test code = 416) BASOPHILS ABSOLUTE COUNT (BEAKER) 0.07 K/ L 0.00-0.20 (test code = 417) IMMATURE GRANULOCYTES-RELATIVE 0.90 % 0.00-0.00 H PERCENT (BEAKER) (test code = 2801) COMPREHENSIVE METABOLIC [id number] 05:15:43 Test Item Value Reference Range Interpretation Comments TOTAL PROTEIN 6.8 gm/dL 6.0-8.5 (BEAKER) (test code = 770) ALBUMIN (BEAKER) 2.8 g/dL 3.5-5.0 L (test code = 1145) ALKALINE 57 U/L 30-115 PHOSPHATASE (BEAKER) (test code = 346) BILIRUBIN TOTAL 0.3 mg/dL 0.1-1.2 (BEAKER) (test code = 377) SODIUM (BEAKER) 137 meq/L 135-148 (test code = 381) POTASSIUM (BEAKER) 3.3 meq/L 3.6-5.5 L (test code = 379) CHLORIDE (BEAKER) 103 meq/L 98-106 (test code = 382) CO2 (BEAKER) (test 21 meq/L 20-29 code = 355) BLOOD UREA 7 mg/dL 10-26 L NITROGEN (BEAKER) (test code = 354) CREATININE 0.68 mg/dL 0.50-1.20 (BEAKER) (test code = 358) GLUCOSE RANDOM 93 mg/dL 70-110 (BEAKER) (test code = 652) CALCIUM (BEAKER) 9.3 mg/dL 8.5-10.5 (test code = 697) AST (SGOT) 15 U/L 5-40 (BEAKER) (test code = 353) ALT (SGPT) 3 U/L 5-50 L (BEAKER) (test code = 347) EGFR (BEAKER) 90 Interpretatio n of eGFR (test code = 1092) mL/min/1.[address] age Description sq m Result G1 Cheryl l or high >=90 G2 Mildly decreased 60-89 G3a Mildl y to moderately 45-5 9 G3b Moderately to s everely 30-44 G4 Severl y decreased 15-29 G5 Kidney failure <15Reported eGF R is based on the CKD-EPI 2020 equation that d oes not use a race coefficientEsti mated GFR is not as accur ate as Creatinine Yanci anay in predicting glom erular filtration rate . Estimated GFR is not appl icable for dialysis patien ts Unified Communications Engineer ID - PURACBC W/PLT COUNT & AUTO [id number] 04:45:43 Test Item Value Reference Range Interpretation Comments WHITE BLOOD CELL COUNT (BEAKER) 20.8 K/ L 4.0-10.0 H (test code = 775) RED BLOOD CELL COUNT (BEAKER) 3.49 M/ L 4.00-5.00 L (test code = 761) HEMOGLOBIN (BEAKER) (test code = 8.3 GM/DL 12.0-15.5 L 410) HEMATOCRIT (BEAKER) (test code = 26.1 % 36.0-46.0 L 411) MEAN CORPUSCULAR VOLUME (BEAKER) 75 fL 82-99 L (test code = 753) MEAN CORPUSCULAR HEMOGLOBIN 23.8 pg 27.0-33.0 L (BEAKER) (test code = 751) MEAN CORPUSCULAR HEMOGLOBIN CONC 31.8 GM/DL 32.0-36.0 L (BEAKER) (test code = 752) RED CELL DISTRIBUTION WIDTH 19.1 % 12.0-15.0 H (BEAKER) (test code = 412) PLATELET COUNT (BEAKER) (test 510 K/CU MM 150-430 H code = 756) MEAN PLATELET VOLUME (BEAKER) 8.8 fL 6.0-11.5 (test code = 754) NUCLEATED RED BLOOD CELLS 0 /100 WBC 0-0 (BEAKER) (test code = 413) NEUTROPHILS RELATIVE PERCENT 79 % (BEAKER) (test code = 429) LYMPHOCYTES RELATIVE PERCENT 14 % (BEAKER) (test code = 430) MONOCYTES RELATIVE PERCENT 6 % (BEAKER) (test code = 431) EOSINOPHILS RELATIVE PERCENT 0 % (BEAKER) (test code = 432) BASOPHILS RELATIVE PERCENT 0 % (BEAKER) (test code = 437) NEUTROPHILS ABSOLUTE COUNT 16.39 K/ L 1.80-8.00 H (BEAKER) (test code = 670) LYMPHOCYTES ABSOLUTE COUNT 3.00 K/ L 1.48-4.50 (BEAKER) (test code = 414) MONOCYTES ABSOLUTE COUNT (BEAKER) 1.14 K/ L 0.00-1.30 (test code = 415) EOSINOPHILS ABSOLUTE COUNT 0.04 K/ L 0.00-0.50 (BEAKER) (test code = 416) BASOPHILS ABSOLUTE COUNT (BEAKER) 0.07 K/ L 0.00-0.20 (test code = 417) IMMATURE GRANULOCYTES-RELATIVE 0.80 % 0.00-0.00 H PERCENT (BEAKER) (test code = 2801) COMPREHENSIVE METABOLIC [id number] 05:11:58 Test Item Value Reference Range Interpretation Comments TOTAL PROTEIN 6.4 gm/dL 6.0-8.5 (BEAKER) (test code = 770) ALBUMIN (BEAKER) 2.6 g/dL 3.5-5.0 L (test code = 1145) ALKALINE 58 U/L 30-115 PHOSPHATASE (BEAKER) (test code = 346) BILIRUBIN TOTAL 0.2 mg/dL 0.1-1.2 (BEAKER) (test code = 377) SODIUM (BEAKER) 136 meq/L 135-148 (test code = 381) POTASSIUM (BEAKER) 3.6 meq/L 3.6-5.5 (test code = 379) CHLORIDE (BEAKER) 102 meq/L 98-106 (test code = 382) CO2 (BEAKER) (test 21 meq/L 20-29 code = 355) BLOOD UREA 7 mg/dL 10-26 L NITROGEN (BEAKER) (test code = 354) CREATININE 0.64 mg/dL 0.50-1.20 (BEAKER) (test code = 358) GLUCOSE RANDOM 104 mg/dL 70-110 (BEAKER) (test code = 652) CALCIUM (BEAKER) 9.4 mg/dL 8.5-10.5 (test code = 697) AST (SGOT) 14 U/L 5-40 (BEAKER) (test code = 353) ALT (SGPT) 7 U/L 5-50 (BEAKER) (test code = 347) EGFR (BEAKER) 92 Interpretatio n of eGFR (test code = 1092) mL/min/1.[address] age Description sq m Result G1 Norm al or high >=90 G2 Mildly decreased 60-89 G3a Mildl y to moderately 45-5 9 G3b Moderately to s everely 30-44 G4 Severl y decreased 15-29 G5 Kidney failure <15Reported eGF R is based on the CKD-EPI 2020 equation that d oes not use a race coefficientEsti mated GFR is not as accur ate as Creatinine Yanci cueva in predicting glom erular filtration rate . Estimated GFR is not appl icable for dialysis patien ts Unified Communications Engineer ID - [place] TCBC W/PLT COUNT & AUTO [id number] 04:55:42 Test Item Value Reference Range Interpretation Comments WHITE BLOOD CELL COUNT (BEAKER) 17.5 K/ L 4.0-10.0 H (test code = 775) RED BLOOD CELL COUNT (BEAKER) 3.21 M/ L 4.00-5.00 L (test code = 761) HEMOGLOBIN (BEAKER) (test code = 7.8 GM/DL 12.0-15.5 L 410) HEMATOCRIT (BEAKER) (test code = 23.9 % 36.0-46.0 L 411) MEAN CORPUSCULAR VOLUME (BEAKER) 75 fL 82-99 L (test code = 753) MEAN CORPUSCULAR HEMOGLOBIN 24.3 pg 27.0-33.0 L (BEAKER) (test code = 751) MEAN CORPUSCULAR HEMOGLOBIN CONC 32.6 GM/DL 32.0-36.0 (BEAKER) (test code = 752) RED CELL DISTRIBUTION WIDTH 18.6 % 12.0-15.0 H (BEAKER) (test code = 412) PLATELET COUNT (BEAKER) (test 459 K/CU MM 150-430 H code = 756) MEAN PLATELET VOLUME (BEAKER) 8.9 fL 6.0-11.5 (test code = 754) NUCLEATED RED BLOOD CELLS 0 /100 WBC 0-0 (BEAKER) (test code = 413) NEUTROPHILS RELATIVE PERCENT 79 % (BEAKER) (test code = 429) LYMPHOCYTES RELATIVE PERCENT 16 % (BEAKER) (test code = 430) MONOCYTES RELATIVE PERCENT 4 % (BEAKER) (test code = 431) EOSINOPHILS RELATIVE PERCENT 0 % (BEAKER) (test code = 432) BASOPHILS RELATIVE PERCENT 0 % (BEAKER) (test code = 437) NEUTROPHILS ABSOLUTE COUNT 13.88 K/ L 1.80-8.00 H (BEAKER) (test code = 670) LYMPHOCYTES ABSOLUTE COUNT 2.74 K/ L 1.48-4.50 (BEAKER) (test code = 414) MONOCYTES ABSOLUTE COUNT (BEAKER) 0.65 K/ L 0.00-1.30 (test code = 415) EOSINOPHILS ABSOLUTE COUNT 0.05 K/ L 0.00-0.50 (BEAKER) (test code = 416) BASOPHILS ABSOLUTE COUNT (BEAKER) 0.06 K/ L 0.00-0.20 (test code = 417) IMMATURE GRANULOCYTES-RELATIVE 0.90 % 0.00-0.00 H PERCENT (BEAKER) (test code = 2801) CT, CHEST, WITH [id number] 22:40:00Reason for exam:->Empyema [facility] : 1945 Sex: FFINAL REPORT CT of the Chest dated 01/21/2022 COMPARISON: January 09, 2022 CLINICAL INFORMATION: EmpyemaEmpyema Comment: Axial images of the chest were obtained from thoracic inlet to the upper abdomen with intravenous contrast. This exam was performed according to our departmental dose-opt imization program, which includes automated exposure control, adjustment of the mA and/or kV according to patient size and/or use of interactive reconstruction technique. Both thyroid lobes are normal in size. An 8 mm calcified nodule is seen in the right thyroid lobe . A 7 mm calcified nodule is seenin the right thyroid lobe. Heart is normal in size. Great vessels are unremarkable. No adenopathy inthe mediastinum or perihilar region. Trachea and mainstem bronchi are patent. There is interval decrease in size of the loculated right pleural collection. Air is seen in the right pleural space thought to represent post procedure changes. Subsegmental atelectasis is seen in the right upper, right mid, and right lower lobes. The left lung is clear. Visualized upper abdomen demonstrates no focal lesion. Impression: Interval decrease in size of the loculated right pleural effusion with subsegmental atelectasis in the right upper, mid, and lower lobes. Signed: [facility] Verified Date/Time: 22:40:10 RAD, CHEST, 1 VIEW, NON [id number] 09:14:00Reason for exam:- >hypoxiaShould this be performed at the bedside?->Yes [facility] 1945 Sex: FFINAL REPORT Chest, 1 view, 01/21/2022 12:52 AM. History: Hypoxia. Comparison: 01/19/2022. Discussion: The cardiac silhouette is stable. Right- sided chest tube is no longer present. Right pleuroparenchymal opacity is unchanged. There is no pneumothorax. The left lung is clear. The soft tissues and osseous structures are intact. IMPRESSION: Stable right pleuroparenchymal opacity post chest tube removal. No pneumothorax. Signed: Rafat Null Verified Date/Time: 01/21/2022 09:14:31 Reading Location: [facility] REHENSIVE METABOLIC [id number] 04:52:40 Test Item Value Reference Range Interpretation Comments TOTAL PROTEIN 6.7 gm/dL 6.0-8.5 (BEAKER) (test code = 770) ALBUMIN (BEAKER) 2.9 g/dL 3.5-5.0 L (test code = 1145) ALKALINE 61 U/L 30-115 PHOSPHATASE (BEAKER) (test code = 346) BILIRUBIN TOTAL 0.4 mg/dL 0.1-1.2 (BEAKER) (test code = 377) SODIUM (BEAKER) 138 meq/L 135-148 (test code = 381) POTASSIUM (BEAKER) 3.0 meq/L 3.6-5.5 L (test code = 379) CHLORIDE (BEAKER) 102 meq/L 98-106 (test code = 382) CO2 (BEAKER) (test 21 meq/L 20-29 code = 355) BLOOD UREA 8 mg/dL 10-26 L NITROGEN (BEAKER) (test code = 354) CREATININE 0.75 mg/dL 0.50-1.20 (BEAKER) (test code = 358) GLUCOSE RANDOM 147 mg/dL 70-110 H (BEAKER) (test code = 652) CALCIUM (BEAKER) 9.4 mg/dL 8.5-10.5 (test code = 697) AST (SGOT) 13 U/L 5-40 (BEAKER) (test code = 353) ALT (SGPT) 5 U/L 5-50 (BEAKER) (test code = 347) EGFR (BEAKER) 82 Interpretatio n of eGFR (test code = 1092) mL/min/1.[address] age Description sq m Result G1 Cheryl l or high >=90 G2 Mildly decreased 60-89 G3a Mildl y to moderately 45- 59 G3b Moderately to s everely 30-44 G4 Severl y decreased 15-29 G5 Kidney failure <15Reported eGF R is based on the CKD-EPI 2020 equation that d oes not use a race coefficientEsti mated GFR is not as accur ate as Creatinine Yanci anay in predicting glom erular filtration rate . Estimated GFR is not appl icable for dialysis patien ts Unified Communications Engineer ID - CHOPZCBC W/PLT COUNT & AUTO [id number] 04:38:41 Test Item Value Reference Range Interpretation Comments WHITE BLOOD CELL COUNT (BEAKER) 19.1 K/ L 4.0-10.0 H (test code = 775) RED BLOOD CELL COUNT (BEAKER) 3.32 M/ L 4.00-5.00 L (test code = 761) HEMOGLOBIN (BEAKER) (test code = 8.1 GM/DL 12.0-15.5 L 410) HEMATOCRIT (BEAKER) (test code = 24.5 % 36.0-46.0 L 411) MEAN CORPUSCULAR VOLUME (BEAKER) 74 fL 82-99 L (test code = 753) MEAN CORPUSCULAR HEMOGLOBIN 24.4 pg 27.0-33.0 L (BEAKER) (test code = 751) MEAN CORPUSCULAR HEMOGLOBIN CONC 33.1 GM/DL 32.0-36.0 (BEAKER) (test code = 752) RED CELL DISTRIBUTION WIDTH 17.9 % 12.0-15.0 H (BEAKER) (test code = 412) PLATELET COUNT (BEAKER) (test 486 K/CU MM 150-430 H code = 756) MEAN PLATELET VOLUME (BEAKER) 8.5 fL 6.0-11.5 (test code = 754) NUCLEATED RED BLOOD CELLS 0 /100 WBC 0-0 (BEAKER) (test code = 413) NEUTROPHILS RELATIVE PERCENT 80 % (BEAKER) (test code = 429) LYMPHOCYTES RELATIVE PERCENT 15 % (BEAKER) (test code = 430) MONOCYTES RELATIVE PERCENT 4 % (BEAKER) (test code = 431) EOSINOPHILS RELATIVE PERCENT 0 % (BEAKER) (test code = 432) BASOPHILS RELATIVE PERCENT 0 % (BEAKER) (test code = 437) NEUTROPHILS ABSOLUTE COUNT 15.31 K/ L 1.80-8.00 H (BEAKER) (test code = 670) LYMPHOCYTES ABSOLUTE COUNT 2.85 K/ L 1.48-4.50 (BEAKER) (test code = 414) MONOCYTES ABSOLUTE COUNT (BEAKER) 0.69 K/ L 0.00-1.30 (test code = 415) EOSINOPHILS ABSOLUTE COUNT 0.03 K/ L 0.00-0.50 (BEAKER) (test code = 416) BASOPHILS ABSOLUTE COUNT (BEAKER) 0.04 K/ L 0.00-0.20 (test code = 417) IMMATURE GRANULOCYTES-RELATIVE 1.00 % 0.00-0.00 H PERCENT (BEAKER) (test code = 2801) CBC W/PLT COUNT & AUTO [id number] 15:22:19 Test Item Value Reference Range Interpretation Comments WHITE BLOOD CELL COUNT (BEAKER) 22.3 K/ L 4.0-10.0 H (test code = 775) RED BLOOD CELL COUNT (BEAKER) 3.55 M/ L 4.00-5.00 L (test code = 761) HEMOGLOBIN (BEAKER) (test code = 8.5 GM/DL 12.0-15.5 L 410) HEMATOCRIT (BEAKER) (test code = 26.4 % 36.0-46.0 L 411) MEAN CORPUSCULAR VOLUME (BEAKER) 74 fL 82-99 L (test code = 753) MEAN CORPUSCULAR HEMOGLOBIN 23.9 pg 27.0-33.0 L (BEAKER) (test code = 751) MEAN CORPUSCULAR HEMOGLOBIN CONC 32.2 GM/DL 32.0-36.0 (BEAKER) (test code = 752) RED CELL DISTRIBUTION WIDTH 17.2 % 12.0-15.0 H (BEAKER) (test code = 412) PLATELET COUNT (BEAKER) (test 433 K/CU MM 150-430 H code = 756) MEAN PLATELET VOLUME (BEAKER) 9.0 fL 6.0-11.5 (test code = 754) NUCLEATED RED BLOOD CELLS 0 /100 WBC 0-0 (BEAKER) (test code = 413) NEUTROPHILS RELATIVE PERCENT 79 % (BEAKER) (test code = 429) LYMPHOCYTES RELATIVE PERCENT 13 % (BEAKER) (test code = 430) MONOCYTES RELATIVE PERCENT 5 % (BEAKER) (test code = 431) EOSINOPHILS RELATIVE PERCENT 0 % (BEAKER) (test code = 432) BASOPHILS RELATIVE PERCENT 0 % (BEAKER) (test code = 437) NEUTROPHILS ABSOLUTE COUNT 17.58 K/ L 1.80-8.00 H (BEAKER) (test code = 670) LYMPHOCYTES ABSOLUTE COUNT 2.89 K/ L 1.48-4.50 (BEAKER) (test code = 414) MONOCYTES ABSOLUTE COUNT (BEAKER) 1.06 K/ L 0.00-1.30 (test code = 415) EOSINOPHILS ABSOLUTE COUNT 0.07 K/ L 0.00-0.50 (BEAKER) (test code = 416) BASOPHILS ABSOLUTE COUNT (BEAKER) 0.07 K/ L 0.00-0.20 (test code = 417) IMMATURE GRANULOCYTES-RELATIVE 3.00 % 0.00-0.00 H PERCENT (BEAKER) (test code = 2801) Urinalysis w/[id number] 15:20:53 Test Item Value Reference Range Interpretation Comments Color, UA (test code = Yellow 5778-6) Clarity, UA (test code = Turbid 5767-9) Specific [place], UA 1.025 1.001-1.035 (test code = 5811-5) pH, UA (test code = 6.0 5.0-8.0 5803-2) Protein, UA (test code = 30 mg/dL Negative A 38230-4) Glucose, UA (test code = Negative Negative 365) Ketones, UA (test code = Negative Negative 8474-8) Bilirubin, UA (test code Negative Negative = 25992-3) Blood, UA (test code = Negative Negative 16013-9) Nitrite, UA (test code = Negative Negative 5802-4) Leukocytes, UA (test Negative Negative code = 5799-2) Urobilinogen, UA (test 0.2 code = 39699-8) Bacteria, UA (test code Few = 15240-4) RBC, UA (test code = None Seen See_Comment [Autom ated message] 799-7) The system [employer] generated this result transmit warren reference range : /HPF. The refer ence range was not u sed to interpret th is result as normal/abnormal . WBC, UA (test code = <5 See_Comment [Autom ated message] 00579-8) The system [employer] generated this result transmit warren reference range : /HPF. The refer ence range was not u sed to interpret th is result as normal/abnormal . SQUAMOUS EPITHELIAL 5-10 See_Comment [Automa warren message] (test code = 55716-8) The sy stem which generated this result transmit warren reference range : /HPF. The refer ence range was not u sed to interpret th is result as normal/abnormal . Specimen Source (test code = 2795) Lab Interpretation (test Abnormal code = 06464-7) [facility][id number] 15:20:53 Test Item Value Reference Range Interpretation Comments Color, UA (test code = Yellow 5778-6) Clarity, UA (test code = Turbid 5767-9) Specific [place], UA 1.025 1.001-1.035 (test code = 5811-5) pH, UA (test code = 6.0 5.0-8.0 5803-2) Protein, UA (test code = 30 mg/dL Negative A 88791-5) Glucose, UA (test code = Negative Negative 365) Ketones, UA (test code = Negative Negative 2514-8) Bilirubin, UA (test code Negative Negative = 86996-3) Blood, UA (test code = Negative Negative 72877-0) Nitrite, UA (test code = Negative Negative 5802-4) Leukocytes, UA (test Negative Negative code = 5799-2) Urobilinogen, UA (test 0.2 code = 58678-1) Bacteria, UA (test code Few = 86727-7) RBC, UA (test code = None Seen See_Comment [Autom ated message] 799-7) The system [employer] generated this result transmit warren reference range : /HPF. The refer ence range was not u sed to interpret th is result as normal/abnormal . WBC, UA (test code = <5 See_Comment [Autom ated message] 70245-4) The system whic h generated this result transmit warren reference range : /HPF. The refer ence range was not u sed to interpret th is result as normal/abnormal . SQUAMOUS EPITHELIAL 5-10 See_Comment [Automa warren message] (test code = 73669-0) The sy stem which generated this result transmit warren reference range : /HPF. The refer ence range was not u sed to interpret th is result as normal/abnormal . Specimen Source (test code = 2795) Lab Interpretation (test Abnormal code = 76799-4) [facility] [id number] 15:20:53 Test Item Value Reference Range Interpretation Comments COLOR (BEAKER) (test code = Yellow 470) CLARITY (BEAKER) (test code = Turbid 469) SPECIFIC GRAVITY UA (BEAKER) 1.025 1.001-1.035 (test code = 468) PH UA (BEAKER) (test code = 6.0 5.0-8.0 467) PROTEIN UA (BEAKER) (test code 30 mg/dL Negative A = 464) GLUCOSE UA (BEAKER) (test code Negative Negative = 365) KETONES UA (BEAKER) (test code Negative Negative = 371) BILIRUBIN UA (BEAKER) (test Negative Negative code = 462) BLOOD UA (BEAKER) (test code = Negative Negative 461) NITRITE UA (BEAKER) (test code Negative Negative = 465) LEUKOCYTE ESTERASE UA (BEAKER) Negative Negative (test code = 466) UROBILINOGEN UA (BEAKER) (test 0.2 code = 463) BACTERIA (BEAKER) (test code = Few 517) RBC UA-MANUAL (BEAKER) (test None Seen /HPF code = 1659) WBC UA-MANUAL (BEAKER) (test <5 /HPF code = 1661) SQUAMOUS EPITHELIAL MANUAL 5-10 /HPF (BEAKER) (test code = 1663) SOURCE(BEAKER) (test code = 2795) BASIC METABOLIC [id number] 15:19:44 Test Item Value Reference Range Interpretation Comments SODIUM (BEAKER) 137 meq/L 135-148 (test code = 381) POTASSIUM 3.3 meq/L 3.6-5.5 L (BEAKER) (test code = 379) CHLORIDE (BEAKER) 101 meq/L 98-106 (test code = 382) CO2 (BEAKER) 26 meq/L 20-29 (test code = 355) BLOOD UREA 9 mg/dL 10-26 L NITROGEN (BEAKER) (test code = 354) CREATININE 0.75 mg/dL 0.50-1.20 (BEAKER) (test code = 358) GLUCOSE RANDOM 112 mg/dL 70-110 H (BEAKER) (test code = 652) CALCIUM (BEAKER) 8.9 mg/dL 8.5-10.5 (test code = 697) EGFR (BEAKER) 82 Interpretatio n of eGFR (test code = mL/min/1.73 values Stage De scription 1092) sq m Result G1 Cheryl l or high >=90 G2 Mildly decreased 60-89 G3a Mildl y to moderately 45-5 9 G3b Moderately to s everely 30-44 G4 Severl y decreased 15-29 G5 Kidney failure <15Reported eGF R is based on the CKD-EPI 2020 equation that d oes not use a race coefficientEsti mated GFR is not as accur ate as Creatinine Yanci anay in predicting glom erular filtration rate . Estimated GFR is not appl icable for dialysis patien ts COVID [id number] 15:18:59 Test Item Value Reference Range Interpretation Comments SARS COVID ANTIGEN Negative Negative (test code = 45334-9) TR (test code = TR) The [employer] SARS Antigen test does not differentiate between SARS-CoV and SARS-CoV-2. The test has been authorized by the FDA under an EUA for use by authorized laboratories. Lab Interpretation Normal (test code = 01139-2) [facility] [id number] 15:18:59 Test Item Value Reference Range Interpretation Comments SARS COVID ANTIGEN Negative Negative (test code = 43020-3) TR (test code = TR) The [employer] SARS Antigen test does not differentiate between SARS-CoV and SARS-CoV-2. The test has been authorized by the FDA under an EUA for use by authorized laboratories. Lab Interpretation Normal (test code = 59606-6) [facility] [id number] 15:18:59 Test Item Value Reference Range Interpretation Comments SARS COVID ANTIGEN (test code = Negative Negative 93098255) The [employer] SARS Antigen test does not differentiate between SARS-CoV and SARS-CoV-2.The test has been authorized by the FDA under an EUA for use by authorized laboratories.CBC W/PLT COUNT & AUTO [id number] 15:15:54 Test Item Value Reference Range Interpretation Comments WHITE BLOOD CELL COUNT (BEAKER) 21.9 K/ L 4.0-10.0 H (test code = 775) RED BLOOD CELL COUNT (BEAKER) 3.53 M/ L 4.00-5.00 L (test code = 761) HEMOGLOBIN (BEAKER) (test code = 8.6 GM/DL 12.0-15.5 L 410) HEMATOCRIT (BEAKER) (test code = 26.4 % 36.0-46.0 L 411) MEAN CORPUSCULAR VOLUME (BEAKER) 75 fL 82-99 L (test code = 753) MEAN CORPUSCULAR HEMOGLOBIN 24.4 pg 27.0-33.0 L (BEAKER) (test code = 751) MEAN CORPUSCULAR HEMOGLOBIN CONC 32.6 GM/DL 32.0-36.0 (BEAKER) (test code = 752) RED CELL DISTRIBUTION WIDTH 18.1 % 12.0-15.0 H (BEAKER) (test code = 412) PLATELET COUNT (BEAKER) (test 422 K/CU MM 150-430 code = 756) MEAN PLATELET VOLUME (BEAKER) 9.8 fL 6.0-11.5 (test code = 754) NUCLEATED RED BLOOD CELLS 0 /100 WBC 0-0 (BEAKER) (test code = 413) NEUTROPHILS RELATIVE PERCENT 78 % (BEAKER) (test code = 429) LYMPHOCYTES RELATIVE PERCENT 12 % (BEAKER) (test code = 430) MONOCYTES RELATIVE PERCENT 5 % (BEAKER) (test code = 431) EOSINOPHILS RELATIVE PERCENT 1 % (BEAKER) (test code = 432) BASOPHILS RELATIVE PERCENT 0 % (BEAKER) (test code = 437) NEUTROPHILS ABSOLUTE COUNT 17.02 K/ L 1.80-8.00 H (BEAKER) (test code = 670) LYMPHOCYTES ABSOLUTE COUNT 2.70 K/ L 1.48-4.50 (BEAKER) (test code = 414) MONOCYTES ABSOLUTE COUNT (BEAKER) 1.11 K/ L 0.00-1.30 (test code = 415) EOSINOPHILS ABSOLUTE COUNT 0.12 K/ L 0.00-0.50 (BEAKER) (test code = 416) BASOPHILS ABSOLUTE COUNT (BEAKER) 0.08 K/ L 0.00-0.20 (test code = 417) IMMATURE GRANULOCYTES-RELATIVE 3.80 % 0.00-0.00 H PERCENT (BEAKER) (test code = 2801) [id number] 15:14:25 Test Item Value Reference Range Interpretation Comments PROTIME (BEAKER) (test 12.4 seconds 9.8-12.0 H code = 759) INR (BEAKER) (test 1.14 See_Comment [Automat ed code = 370) message] The sy stem which generated this result transmitted reference range : <=5.90. The reference range was not used to interpret this result as normal/abnormal . PARTIAL THROMBOPLASTIN 30.1 seconds 25.8-34.5 TIME (BEAKER) (test code = 760) RECOMMENDED COUMADIN/WARFARIN INR THERAPY RANGESSTANDARD DOSE: 2.0 - 3.0 Includes: PROPHYLAXIS for venous thrombosis, systemic embolization; TREATMENT for venous thrombosis and/or pulmonary embolus.HIGH RISK: Target INR is 2.5-3.5 for patients with mechanical heart valves.[id number] 15:13:52 Test Item Value Reference Range Interpretation Comments POTASSIUM (BEAKER) (test code = 4.1 meq/L 3.6-5.5 379) COMPREHENSIVE METABOLIC [id number] 15:10:05 Test Item Value Reference Range Interpretation Comments TOTAL PROTEIN 6.5 gm/dL 6.0-8.5 (BEAKER) (test code = 770) ALBUMIN (BEAKER) 2.1 g/dL 3.5-5.0 L (test code = 1145) ALKALINE 54 U/L 30-115 PHOSPHATASE (BEAKER) (test code = 346) BILIRUBIN TOTAL 0.3 mg/dL 0.1-1.2 (BEAKER) (test code = 377) SODIUM (BEAKER) 135 meq/L 135-148 (test code = 381) POTASSIUM (BEAKER) 5.7 meq/L 3.6-5.5 H (test code = 379) CHLORIDE (BEAKER) 105 meq/L 98-106 (test code = 382) CO2 (BEAKER) (test 22 meq/L 20-29 code = 355) BLOOD UREA 14 mg/dL 10-26 NITROGEN (BEAKER) (test code = 354) CREATININE 0.81 mg/dL 0.50-1.20 (BEAKER) (test code = 358) GLUCOSE RANDOM 109 mg/dL 70-110 (BEAKER) (test code = 652) CALCIUM (BEAKER) 8.6 mg/dL 8.5-10.5 (test code = 697) AST (SGOT) 32 U/L 5-40 (BEAKER) (test code = 353) ALT (SGPT) 11 U/L 5-50 (BEAKER) (test code = 347) EGFR (BEAKER) 75 Interpretatio n of eGFR (test code = 1092) mL/min/1.[address] age Description sq m Result G1 Norm al or high >=90 G2 Mildly decreased 60-89 G3a Mildl y to moderately 45-5 9 G3b Moderately to s everely 30-44 G4 Severl y decreased 15-29 G5 Kidney failure <15Reported eGF R is based on the CKD-EPI 2020 equation that d oes not use a race coefficientEsti mated GFR is not as accur ate as Creatinine Yanci cueva in predicting glom erular filtration rate . Estimated GFR is not appl icable for dialysis patien ts CBC W/PLT COUNT & AUTO [id number] 14:38:24 Test Item Value Reference Range Interpretation Comments WHITE BLOOD CELL COUNT (BEAKER) 25.1 K/ L 4.0-10.0 H (test code = 775) RED BLOOD CELL COUNT (BEAKER) 4.11 M/ L 4.00-5.00 (test code = 761) HEMOGLOBIN (BEAKER) (test code = 9.7 GM/DL 12.0-15.5 L 410) HEMATOCRIT (BEAKER) (test code = 30.2 % 36.0-46.0 L 411) MEAN CORPUSCULAR VOLUME (BEAKER) 74 fL 82-99 L (test code = 753) MEAN CORPUSCULAR HEMOGLOBIN 23.6 pg 27.0-33.0 L (BEAKER) (test code = 751) MEAN CORPUSCULAR HEMOGLOBIN CONC 32.1 GM/DL 32.0-36.0 (BEAKER) (test code = 752) RED CELL DISTRIBUTION WIDTH 17.1 % 12.0-15.0 H (BEAKER) (test code = 412) PLATELET COUNT (BEAKER) (test 544 K/CU MM 150-430 H code = 756) MEAN PLATELET VOLUME (BEAKER) 8.7 fL 6.0-11.5 (test code = 754) NUCLEATED RED BLOOD CELLS 0 /100 WBC 0-0 (BEAKER) (test code = 413) NEUTROPHILS RELATIVE PERCENT 75 % (BEAKER) (test code = 429) LYMPHOCYTES RELATIVE PERCENT 14 % (BEAKER) (test code = 430) MONOCYTES RELATIVE PERCENT 6 % (BEAKER) (test code = 431) EOSINOPHILS RELATIVE PERCENT 1 % (BEAKER) (test code = 432) BASOPHILS RELATIVE PERCENT 0 % (BEAKER) (test code = 437) NEUTROPHILS ABSOLUTE COUNT 18.74 K/ L 1.80-8.00 H (BEAKER) (test code = 670) LYMPHOCYTES ABSOLUTE COUNT 3.62 K/ L 1.48-4.50 (BEAKER) (test code = 414) MONOCYTES ABSOLUTE COUNT (BEAKER) 1.45 K/ L 0.00-1.30 H (test code = 415) EOSINOPHILS ABSOLUTE COUNT 0.16 K/ L 0.00-0.50 (BEAKER) (test code = 416) BASOPHILS ABSOLUTE COUNT (BEAKER) 0.11 K/ L 0.00-0.20 (test code = 417) IMMATURE GRANULOCYTES-RELATIVE 4.20 % 0.00-0.00 H PERCENT (BEAKER) (test code = 2801) CBC (HEMOGRAM ONLY)2022-01-20 14:37:36 Test Item Value Reference Range Interpretation Comments WHITE BLOOD CELL COUNT (BEAKER) 19.6 K/ L 4.0-10.0 H (test code = 775) RED BLOOD CELL COUNT (BEAKER) 3.49 M/ L 4.00-5.00 L (test code = 761) HEMOGLOBIN (BEAKER) (test code = 8.1 GM/DL 12.0-15.5 L 410) HEMATOCRIT (BEAKER) (test code = 25.4 % 36.0-46.0 L 411) MEAN CORPUSCULAR VOLUME (BEAKER) 73 fL 82-99 L (test code = 753) MEAN CORPUSCULAR HEMOGLOBIN 23.2 pg 27.0-33.0 L (BEAKER) (test code = 751) MEAN CORPUSCULAR HEMOGLOBIN CONC 31.9 GM/DL 32.0-36.0 L (BEAKER) (test code = 752) RED CELL DISTRIBUTION WIDTH 18.1 % 12.0-15.0 H (BEAKER) (test code = 412) PLATELET COUNT (BEAKER) (test 498 K/CU MM 150-430 H code = 756) MEAN PLATELET VOLUME (BEAKER) 9.4 fL 6.0-11.5 (test code = 754) NUCLEATED RED BLOOD CELLS 0 /100 WBC 0-0 (BEAKER) (test code = 413) BASIC METABOLIC [id number] 14:34:04 Test Item Value Reference Range Interpretation Comments SODIUM (BEAKER) 136 meq/L 135-148 (test code = 381) POTASSIUM 4.2 meq/L 3.6-5.5 (BEAKER) (test code = 379) CHLORIDE (BEAKER) 102 meq/L 98-106 (test code = 382) CO2 (BEAKER) 24 meq/L 20-29 (test code = 355) BLOOD UREA 13 mg/dL 10-26 NITROGEN (BEAKER) (test code = 354) CREATININE 0.77 mg/dL 0.50-1.20 (BEAKER) (test code = 358) GLUCOSE RANDOM 108 mg/dL 70-110 (BEAKER) (test code = 652) CALCIUM (BEAKER) 9.4 mg/dL 8.5-10.5 (test code = 697) EGFR (BEAKER) 80 Interpretatio n of eGFR (test code = mL/min/1.73 values Stage De scription 1092) sq m Result G1 Cheryl l or high >=90 G2 Mildly decreased 60-89 G3a Mildl y to moderately 45-5 9 G3b Moderately to s everely 30-44 G4 Severl y decreased 15-29 G5 Kidney failure <15Reported eGF R is based on the CKD-EPI 2020 equation that d oes not use a race coefficientEsti mated GFR is not as accur ate as Creatinine Yanci anay in predicting glom erular filtration rate . Estimated GFR is not appl icable for dialysis patien ts PT/[id number] 14:30:55 Test Item Value Reference Range Interpretation Comments PROTIME (BEAKER) (test 11.9 seconds 9.8-12.0 code = 759) INR (BEAKER) (test 1.09 See_Comment [Automat ed code = 370) message] The sy stem which generated this result transmitted reference range : <=5.90. The reference range was not used to interpret this result as normal/abnormal . PARTIAL THROMBOPLASTIN 29.3 seconds 25.8-34.5 TIME (BEAKER) (test code = 760) RECOMMENDED COUMADIN/WARFARIN INR THERAPY RANGESSTANDARD DOSE: 2.0 - 3.0 Includes: PROPHYLAXIS for venous thrombosis, systemic embolization; TREATMENT for venous thrombosis and/or pulmonary embolus.HIGH RISK: Target INR is 2.5-3.5 for patients with mechanical heart valves.SARS-COV2/RT-PCR ([facility]) 2022-01-20 14:30:23 Test Item Value Reference Range Interpretation Comments SARS-COV2/RT-PCR (test Negative Not Detected, Negative, See code = 3113857) external report for linked test URINALYSIS W/ [id number] 14:29:56 Test Item Value Reference Range Interpretation Comments COLOR (BEAKER) (test code = Yellow 470) CLARITY (BEAKER) (test code = Clear 469) SPECIFIC GRAVITY UA (BEAKER) 1.025 1.001-1.035 (test code = 468) PH UA (BEAKER) (test code = 6.0 5.0-8.0 467) PROTEIN UA (BEAKER) (test code Trace Negative A = 464) GLUCOSE UA (BEAKER) (test code Negative Negative = 365) KETONES UA (BEAKER) (test code Negative Negative = 371) BILIRUBIN UA (BEAKER) (test Negative Negative code = 462) BLOOD UA (BEAKER) (test code = Negative Negative 461) NITRITE UA (BEAKER) (test code Negative Negative = 465) LEUKOCYTE ESTERASE UA (BEAKER) Negative Negative (test code = 466) UROBILINOGEN UA (BEAKER) (test 0.2 code = 463) BACTERIA (BEAKER) (test code = Rare 517) RBC UA-MANUAL (BEAKER) (test None Seen /HPF code = 1659) WBC UA-MANUAL (BEAKER) (test <5 /HPF code = 1661) SQUAMOUS EPITHELIAL MANUAL 5-10 /HPF (BEAKER) (test code = 1663) SOURCE(BEAKER) (test code = 7205) BASIC METABOLIC [id number] 14:28:28 Test Item Value Reference Range Interpretation Comments SODIUM (BEAKER) 136 meq/L 135-148 (test code = 381) POTASSIUM 3.2 meq/L 3.6-5.5 L (BEAKER) (test code = 379) CHLORIDE (BEAKER) 103 meq/L 98-106 (test code = 382) CO2 (BEAKER) 24 meq/L 20-29 (test code = 355) BLOOD UREA 17 mg/dL 10-26 NITROGEN (BEAKER) (test code = 354) CREATININE 0.74 mg/dL 0.50-1.20 (BEAKER) (test code = 358) GLUCOSE RANDOM 112 mg/dL 70-110 H (BEAKER) (test code = 652) CALCIUM (BEAKER) 8.8 mg/dL 8.5-10.5 (test code = 697) EGFR (BEAKER) 84 Interpretatio n of eGFR (test code = mL/min/1.73 values Stage De scription 1092) sq m Result G1 Cheryl l or high >=90 G2 Mildly decreased 60-89 G3a Mildl y to moderately 45-5 9 G3b Moderately to s everely 30-44 G4 Severl y decreased 15-29 G5 Kidney failure <15Reported eGF R is based on the CKD-EPI 2020 equation that d oes not use a race coefficientEsti mated GFR is not as accur ate as Creatinine Yanci cueva in predicting glom erular filtration rate . Estimated GFR is not appl icable for dialysis patien ts CBC W/PLT COUNT & AUTO [id number] 14:22:38 Test Item Value Reference Range Interpretation Comments WHITE BLOOD CELL COUNT (BEAKER) 23.0 K/ L 4.0-10.0 H (test code = 775) RED BLOOD CELL COUNT (BEAKER) 3.33 M/ L 4.00-5.00 L (test code = 761) HEMOGLOBIN (BEAKER) (test code = 7.8 GM/DL 12.0-15.5 L 410) HEMATOCRIT (BEAKER) (test code = 24.0 % 36.0-46.0 L 411) MEAN CORPUSCULAR VOLUME (BEAKER) 72 fL 82-99 L (test code = 753) MEAN CORPUSCULAR HEMOGLOBIN 23.4 pg 27.0-33.0 L (BEAKER) (test code = 751) MEAN CORPUSCULAR HEMOGLOBIN CONC 32.5 GM/DL 32.0-36.0 (BEAKER) (test code = 752) RED CELL DISTRIBUTION WIDTH 17.6 % 12.0-15.0 H (BEAKER) (test code = 412) PLATELET COUNT (BEAKER) (test 554 K/CU MM 150-430 H code = 756) MEAN PLATELET VOLUME (BEAKER) 9.3 fL 6.0-11.5 (test code = 754) NUCLEATED RED BLOOD CELLS 0 /100 WBC 0-0 (BEAKER) (test code = 413) NEUTROPHILS RELATIVE PERCENT 83 % (BEAKER) (test code = 429) LYMPHOCYTES RELATIVE PERCENT 9 % (BEAKER) (test code = 430) MONOCYTES RELATIVE PERCENT 6 % (BEAKER) (test code = 431) EOSINOPHILS RELATIVE PERCENT 0 % (BEAKER) (test code = 432) BASOPHILS RELATIVE PERCENT 0 % (BEAKER) (test code = 437) NEUTROPHILS ABSOLUTE COUNT 19.04 K/ L 1.80-8.00 H (BEAKER) (test code = 670) LYMPHOCYTES ABSOLUTE COUNT 2.12 K/ L 1.48-4.50 (BEAKER) (test code = 414) MONOCYTES ABSOLUTE COUNT (BEAKER) 1.27 K/ L 0.00-1.30 (test code = 415) EOSINOPHILS ABSOLUTE COUNT 0.08 K/ L 0.00-0.50 (BEAKER) (test code = 416) BASOPHILS ABSOLUTE COUNT (BEAKER) 0.06 K/ L 0.00-0.20 (test code = 417) IMMATURE GRANULOCYTES-RELATIVE 1.70 % 0.00-0.00 H PERCENT (BEAKER) (test code = 2801) BASIC METABOLIC [id number] 14:20:55 Test Item Value Reference Range Interpretation Comments SODIUM (BEAKER) 136 meq/L 135-148 (test code = 381) POTASSIUM 3.3 meq/L 3.6-5.5 L (BEAKER) (test code = 379) CHLORIDE (BEAKER) 102 meq/L 98-106 (test code = 382) CO2 (BEAKER) 23 meq/L 20-29 (test code = 355) BLOOD UREA 21 mg/dL 10-26 NITROGEN (BEAKER) (test code = 354) CREATININE 0.75 mg/dL 0.50-1.20 (BEAKER) (test code = 358) GLUCOSE RANDOM 117 mg/dL 70-110 H (BEAKER) (test code = 652) CALCIUM (BEAKER) 8.7 mg/dL 8.5-10.5 (test code = 697) EGFR (BEAKER) 82 Interpretatio n of eGFR (test code = mL/min/1.73 values Stage De scription 1092) sq m Result G1 Cheryl l or high >=90 G2 Mildly decreased 60-89 G3a Mildl y to moderately 45-5 9 G3b Moderately to s everely 30-44 G4 Severl y decreased 15-29 G5 Kidney failure <15Reported eGF R is based on the CKD-EPI 2020 equation that d oes not use a race coefficientEsti mated GFR is not as accur ate as Creatinine Yanci anay in predicting glom erular filtration rate . Estimated GFR is not appl icable for dialysis patien ts CBC W/PLT COUNT & AUTO [id number] 14:18:23 Test Item Value Reference Range Interpretation Comments WHITE BLOOD CELL COUNT (BEAKER) 10.6 K/ L 4.0-10.0 H (test code = 775) RED BLOOD CELL COUNT (BEAKER) 7.92 M/ L 4.00-5.00 H (test code = 761) HEMOGLOBIN (BEAKER) (test code = 17.9 GM/DL 12.0-15.5 H 410) HEMATOCRIT (BEAKER) (test code = 56.7 % 36.0-46.0 H 411) MEAN CORPUSCULAR VOLUME (BEAKER) 72 fL 82-99 L (test code = 753) MEAN CORPUSCULAR HEMOGLOBIN 22.6 pg 27.0-33.0 L (BEAKER) (test code = 751) MEAN CORPUSCULAR HEMOGLOBIN CONC 31.6 GM/DL 32.0-36.0 L (BEAKER) (test code = 752) RED CELL DISTRIBUTION WIDTH 20.0 % 12.0-15.0 H (BEAKER) (test code = 412) PLATELET COUNT (BEAKER) (test 186 K/CU MM 150-430 code = 756) MEAN PLATELET VOLUME (BEAKER) 8.8 fL 6.0-11.5 (test code = 754) NUCLEATED RED BLOOD CELLS 0 /100 WBC 0-0 (BEAKER) (test code = 413) NEUTROPHILS RELATIVE PERCENT 78 % (BEAKER) (test code = 429) LYMPHOCYTES RELATIVE PERCENT 18 % (BEAKER) (test code = 430) MONOCYTES RELATIVE PERCENT 3 % (BEAKER) (test code = 431) EOSINOPHILS RELATIVE PERCENT 0 % (BEAKER) (test code = 432) BASOPHILS RELATIVE PERCENT 0 % (BEAKER) (test code = 437) NEUTROPHILS ABSOLUTE COUNT 8.28 K/ L 1.80-8.00 H (BEAKER) (test code = 670) LYMPHOCYTES ABSOLUTE COUNT 1.92 K/ L 1.48-4.50 (BEAKER) (test code = 414) MONOCYTES ABSOLUTE COUNT (BEAKER) 0.30 K/ L 0.00-1.30 (test code = 415) EOSINOPHILS ABSOLUTE COUNT 0.01 K/ L 0.00-0.50 (BEAKER) (test code = 416) BASOPHILS ABSOLUTE COUNT (BEAKER) 0.03 K/ L 0.00-0.20 (test code = 417) IMMATURE GRANULOCYTES-RELATIVE 0.80 % 0.00-0.00 H PERCENT (BEAKER) (test code = 2801) BASIC METABOLIC [id number] 14:16:03 Test Item Value Reference Range Interpretation Comments SODIUM (BEAKER) 135 meq/L 135-148 (test code = 381) POTASSIUM 2.9 meq/L 3.6-5.5 L (BEAKER) (test code = 379) CHLORIDE (BEAKER) 98 meq/L 98-106 (test code = 382) CO2 (BEAKER) 25 meq/L 20-29 (test code = 355) BLOOD UREA 26 mg/dL 10-26 NITROGEN (BEAKER) (test code = 354) CREATININE 0.86 mg/dL 0.50-1.20 (BEAKER) (test code = 358) GLUCOSE RANDOM 127 mg/dL 70-110 H (BEAKER) (test code = 652) CALCIUM (BEAKER) 9.0 mg/dL 8.5-10.5 (test code = 697) EGFR (BEAKER) 70 Interpretatio n of eGFR (test code = mL/min/1.73 values Stage De scription 1092) sq m Result G1 Norm al or high >=90 G2 Mildly decreased 60-89 G3a Mildl y to moderately 45-5 9 G3b Moderately to s everely 30-44 G4 Severl y decreased 15-29 G5 Kidney failure <15Reported eGF R is based on the CKD-EPI 202 equation that d oes not use a race coefficientEsti mated GFR is not as accur ate as Creatinine Yanci anay in predicting glom erular filtration rate . Estimated GFR is not appl icable for dialysis patien ts PT/[id number] 14:15:06 Test Item Value Reference Range Interpretation Comments PROTIME (BEAKER) (test 12.8 seconds 9.8-12.0 H code = 759) INR (BEAKER) (test 1.17 See_Comment [Automat ed code = 370) message] The sy stem which generated this result transmitted reference range : <=5.90. The reference range was not used to interpret this result as normal/abnormal . PARTIAL THROMBOPLASTIN 38.4 seconds 25.8-34.5 H TIME (BEAKER) (test code = 760) RECOMMENDED COUMADIN/WARFARIN INR THERAPY RANGESSTANDARD DOSE: 2.0 - 3.0 Includes: PROPHYLAXIS for venous thrombosis, systemic embolization; TREATMENT for venous thrombosis and/or pulmonary embolus.HIGH RISK: Target INR is 2.5-3.5 for patients with mechanical heart valves.[id number] 14:12:04 Test Item Value Reference Range Interpretation Comments FERRITIN (BEAKER) (test code = 605.93 ng/mL 10.00-291.00 H 361) VANCOMYCIN LEVEL, [id number] 14:11:21 Test Item Value Reference Range Interpretation Comments VANCOMYCIN RANDOM (BEAKER) (test 11.4 ug/mL code = 523) Reference Range: No NormalsBASIC METABOLIC [id number] 14:10:49 Test Item Value Reference Range Interpretation Comments SODIUM (BEAKER) 134 meq/L 135-148 L (test code = 381) POTASSIUM 3.3 meq/L 3.6-5.5 L (BEAKER) (test code = 379) CHLORIDE (BEAKER) 97 meq/L 98-106 L (test code = 382) CO2 (BEAKER) 22 meq/L 20-29 (test code = 355) BLOOD UREA 27 mg/dL 10-26 H NITROGEN (BEAKER) (test code = 354) CREATININE 1.29 mg/dL 0.50-1.20 H (BEAKER) (test code = 358) GLUCOSE RANDOM 121 mg/dL 70-110 H (BEAKER) (test code = 652) CALCIUM (BEAKER) 9.6 mg/dL 8.5-10.5 (test code = 697) EGFR (BEAKER) 43 Interpretatio n of eGFR (test code = mL/min/1.73 values Stage De scription 1092) sq m Result G1 Cheryl l or high >=90 G2 Mildly decreased 60-89 G3a Mildl y to moderately 45-5 9 G3b Moderately to s everely 30-44 G4 Severl y decreased 15-29 G5 Kidney failure <15Reported eGF R is based on the CKD-EPI 2020 equation that d oes not use a race coefficientEsti mated GFR is not as accur ate as Creatinine Yanci anay in predicting glom erular filtration rate . Estimated GFR is not appl icable for dialysis patien ts WHITE BLOOD CELL [id number] 14:07:57 Test Item Value Reference Range Interpretation Comments WHITE BLOOD CELL COUNT (BEAKER) 36.4 K/ L 4.0-10.0 H (test code = 775) (MANUAL DIFFERENTIAL)2022-01-20 13:59:01 Test Item Value Reference Range Interpretation Comments NEUTROPHILS - REL (DIFF) (BEAKER) 82 % (test code = 1359) LYMPHOCYTES - REL (DIFF) (BEAKER) 7 % (test code = 1360) MONOCYTES - REL (DIFF) (BEAKER) 5 % (test code = 1361) EOSINOPHILS - REL (DIFF) (BEAKER) 0 % (test code = 1362) BASOPHILS - REL (DIFF) (BEAKER) 0 % (test code = 1363) BANDS - REL (DIFF) (BEAKER) (test 6 % 0-10 code = 1348) NEUTROPHILS - ABS (DIFF) (BEAKER) 26.08 K/ L 1.80-8.00 H (test code = 1365) LYMPHOCYTES - ABS (DIFF) (BEAKER) 2.23 K/ L 1.48-4.50 (test code = 1366) MONOCYTES - ABS (DIFF) (BEAKER) 1.59 K/ L 0.00-1.30 H (test code = 1367) EOSINOPHILS - ABS (DIFF) (BEAKER) 0.00 K/ L 0.00-0.50 (test code = 1368) BASOPHILS - ABS (DIFF) (BEAKER) 0.00 K/ L 0.00-0.20 (test code = 1369) BANDS-ABS (DIFF) (BEAKER) (test 1.9 K/ L 0.0-0.8 H code = 1349) TOTAL COUNTED (BEAKER) (test code 100 = 1351) BANDS + SEGMENTED NEUTROPHILS 27.98 (BEAKER) (test code = 1352) WBC MORPHOLOGY (BEAKER) (test code Normal = 487) PLT MORPHOLOGY (BEAKER) (test code Normal = 486) RBC MORPHOLOGY (BEAKER) (test code Normal = 762) CBC W/PLT COUNT & AUTO [id number] 13:59:00 Test Item Value Reference Range Interpretation Comments WHITE BLOOD CELL COUNT (BEAKER) 31.8 K/ L 4.0-10.0 H (test code = 775) RED BLOOD CELL COUNT (BEAKER) 3.57 M/ L 4.00-5.00 L (test code = 761) HEMOGLOBIN (BEAKER) (test code = 8.3 GM/DL 12.0-15.5 L 410) HEMATOCRIT (BEAKER) (test code = 25.4 % 36.0-46.0 L 411) MEAN CORPUSCULAR VOLUME (BEAKER) 71 fL 82-99 L (test code = 753) MEAN CORPUSCULAR HEMOGLOBIN 23.2 pg 27.0-33.0 L (BEAKER) (test code = 751) MEAN CORPUSCULAR HEMOGLOBIN CONC 32.7 GM/DL 32.0-36.0 (BEAKER) (test code = 752) RED CELL DISTRIBUTION WIDTH 17.5 % 12.0-15.0 H (BEAKER) (test code = 412) PLATELET COUNT (BEAKER) (test 528 K/CU MM 150-430 H code = 756) MEAN PLATELET VOLUME (BEAKER) 8.8 fL 6.0-11.5 (test code = 754) NUCLEATED RED BLOOD CELLS 0 /100 WBC 0-0 (BEAKER) (test code = 413) PROTHROMBIN [id number] 13:56:02 Test Item Value Reference Range Interpretation Comments PROTIME (BEAKER) 15.1 seconds 9.8-12.0 H (test code = 759) INR (BEAKER) (test 1.39 See_Comment [Automat ed message] code = 370) The system [employer] generated this result transmitted ref erence range: <=5.90. The reference range was not used to int erpret this result as normal/abnormal . RECOMMENDED COUMADIN/WARFARIN INR THERAPY RANGESSTANDARD DOSE: 2.0 - 3.0 Includes: PROPHYLAXIS for venous thrombosis, systemic embolization; TREATMENT for venous thrombosis and/or pulmonary embolus.HIGH RISK: Target INR is 2.5-3.5 for patients with mechanical heart valves.B-TYPE NATRIURETIC FACTOR (BNP) 2022-01-20 13:55:31 Test Item Value Reference Range Interpretation Comments B-TYPE NATRIURETIC PEPTIDE (BEAKER) 60 pg/mL 0-100 (test code = 700) [id number] 13:55:09 Test Item Value Reference Range Interpretation Comments THYROID STIMULATING HORMONE 0.505 uIU/mL 0.350-5.500 (BEAKER) (test code = 772) T4, [id number] 13:55:09 Test Item Value Reference Range Interpretation Comments FREE T4 (BEAKER) (test code = 655) 0.82 ng/dL 0.90-1.80 L TROPONIN [id number] 13:54:30 Test Item Value Reference Range Interpretation Comments TROPONIN I (BEAKER) (test code = 0.01 ng/mL 0.00-0.03 397) Troponin I (TnI) levels must be interpreted in the context of the presenting symptoms and the clinical findings. Elevated TnI levels indicate myocardial damage, but are not specific for ischemic heart disease. Elevated TnI levels are seen in patients with other cardiac conditions (including myocarditis and congestive heart failure), and slight TnI elevations occur in patients with other conditions, including sepsis, renal failure, acidosis, acute neurological disease, and persistent tachyarrhythmia.[id number] 13:54:01 Test Item Value Reference Range Interpretation Comments PHOSPHORUS (BEAKER) (test code = 3.9 mg/dL 2.5-4.5 604) [id number] 13:54:01 Test Item Value Reference Range Interpretation Comments MAGNESIUM (BEAKER) (test code = 1.5 mg/dL 1.5-3.0 627) LIPID [id number] 13:54:00 Test Item Value Reference Range Interpretation Comments TRIGLYCERIDES (BEAKER) (test code = 64 mg/dL 540) CHOLESTEROL (BEAKER) (test code = 87 mg/dL 631) HDL CHOLESTEROL (BEAKER) (test code 21 mg/dL = 976) LDL CHOLESTEROL CALCULATED (BEAKER) 53 mg/dL (test code = 633) Triglyceride Reference Range: Low Risk <150 Borderline 150-199 High Risk 200- 499 Very High Risk >=500Cholesterol Reference Range: Low Risk <200 Borderline 200-239 High Risk >240HDL Cholesterol Reference Range: Low Risk >=60 High Risk <40LDL Cholesterol Reference Range: Optimal <100 Near Optimal 100-129 Borderline 130-159 High 160-189 Very High >=190COMPREHENSIVE METABOLIC [id number] 13:54:00 Test Item Value Reference Range Interpretation Comments TOTAL PROTEIN 6.4 gm/dL 6.0-8.5 (BEAKER) (test code = 770) ALBUMIN (BEAKER) 2.7 g/dL 3.5-5.0 L (test code = 1145) ALKALINE 58 U/L 30-115 PHOSPHATASE (BEAKER) (test code = 346) BILIRUBIN TOTAL 0.5 mg/dL 0.1-1.2 (BEAKER) (test code = 377) SODIUM (BEAKER) 134 meq/L 135-148 L (test code = 381) POTASSIUM (BEAKER) 3.7 meq/L 3.6-5.5 (test code = 379) CHLORIDE (BEAKER) 96 meq/L 98-106 L (test code = 382) CO2 (BEAKER) (test 25 meq/L 20-29 code = 355) BLOOD UREA 25 mg/dL 10-26 NITROGEN (BEAKER) (test code = 354) CREATININE 1.84 mg/dL 0.50-1.20 H (BEAKER) (test code = 358) GLUCOSE RANDOM 122 mg/dL 70-110 H (BEAKER) (test code = 652) CALCIUM (BEAKER) 9.2 mg/dL 8.5-10.5 (test code = 697) AST (SGOT) 13 U/L 5-40 (BEAKER) (test code = 353) ALT (SGPT) 6 U/L 5-50 (BEAKER) (test code = 347) EGFR (BEAKER) 28 Interpretati on of eGFR (test code = 1092) mL/min/1.[address] age Description sq m Result G1 Cheryl l or high >=90 G2 Mildly decreased 60-89 G3a Mildl y to moderately 45-5 9 G3b Moderately to s everely 30-44 G4 Severl y decreased 15-29 G5 Kidney failure <15Reported eGF R is based on the CKD-EPI 2020 equation that d oes not use a race coefficientEsti mated GFR is not as accur ate as Creatinine Yanci anay in predicting glom erular filtration rate . Estimated GFR is not appl icable for dialysis patien ts TROPONIN [id number] 13:45:39 Test Item Value Reference Range Interpretation Comments TROPONIN I (TIMI) (test code = 0.01 ng/mL 0.00-0.03 397) Troponin I (TnI) levels must be interpreted in the context of the presenting symptoms and the clinical findings. Elevated TnI levels indicate myocardial damage, but are not specific for ischemic heart disease. Elevated TnI levels are seen in patients with other cardiac conditions (including myocarditis and congestive heart failure), and slight TnI elevations occur in patients with other conditions, including sepsis, renal failure, acidosis, acute neurological disease, and persistent tachyarrhythmia.RAD, CHEST, 1 VIEW, NON [id number] 04:46:00Reason for exam:->hypoxiaShould this be performed at the bedside?->Yes[facility] 1945 Sex: FFINAL REPORT RAD, CHEST, 1 VIEW, NON DEPT INDICATION: hypoxia COMPARISON: Prior day's exam FINDINGS: Portable frontal view of the chest. IMPRESSION: Support Lines: Stable right chest tube. Lungs and pleura: Unchanged moderate to large right pleural effusion. Left lung remains clear. No pneum othorax. Heart and mediastinum: Stable contours. Additional findings: None. Signed: Wilner Copeland MDReport Verified Date/Time: 01/20/2022 04:46:20 COMPREHENSIVE METABOLIC [id number] 04:35:35 Test Item Value Reference Range Interpretation Comments TOTAL PROTEIN 6.3 gm/dL 6.0-8.5 (BEAKER) (test code = 770) ALBUMIN (BEAKER) 2.6 g/dL 3.5-5.0 L (test code = 1145) ALKALINE 54 U/L 30-115 PHOSPHATASE (BEAKER) (test code = 346) BILIRUBIN TOTAL 0.4 mg/dL 0.1-1.2 (BEAKER) (test code = 377) SODIUM (BEAKER) 136 meq/L 135-148 (test code = 381) POTASSIUM (BEAKER) 3.3 meq/L 3.6-5.5 L (test code = 379) CHLORIDE (BEAKER) 101 meq/L 98-106 (test code = 382) CO2 (BEAKER) (test 25 meq/L 20-29 code = 355) BLOOD UREA 7 mg/dL 10-26 L NITROGEN (BEAKER) (test code = 354) CREATININE 0.69 mg/dL 0.50-1.20 (BEAKER) (test code = 358) GLUCOSE RANDOM 123 mg/dL 70-110 H (BEAKER) (test code = 652) CALCIUM (BEAKER) 9.3 mg/dL 8.5-10.5 (test code = 697) AST (SGOT) 14 U/L 5-40 (BEAKER) (test code = 353) ALT (SGPT) 6 U/L 5-50 (BEAKER) (test code = 347) EGFR (BEAKER) 90 Interpretatio n of eGFR (test code = 1092) mL/min/1.[address] age Description sq m Result G1 Cheryl l or high >=90 G2 Mildly decreased 60-89 G3a Mildl y to moderately 45-5 9 G3b Moderately to s everely 30-44 G4 Severl y decreased 15-29 G5 Kidney failure <15Reported eGF R is based on the CKD-EPI 2020 equation that d oes not use a race coefficientEsti mated GFR is not as accur ate as Creatinine Yanci anay in predicting glom erular filtration rate . Estimated GFR is not appl icable for dialysis patien ts Unified Communications Engineer ID - BRUCECBC W/PLT COUNT & AUTO [id number] 03:59:40 Test Item Value Reference Range Interpretation Comments WHITE BLOOD CELL COUNT (BEAKER) 22.1 K/ L 4.0-10.0 H (test code = 775) RED BLOOD CELL COUNT (BEAKER) 3.33 M/ L 4.00-5.00 L (test code = 761) HEMOGLOBIN (BEAKER) (test code = 8.0 GM/DL 12.0-15.5 L 410) HEMATOCRIT (BEAKER) (test code = 24.6 % 36.0-46.0 L 411) MEAN CORPUSCULAR VOLUME (BEAKER) 74 fL 82-99 L (test code = 753) MEAN CORPUSCULAR HEMOGLOBIN 24.0 pg 27.0-33.0 L (BEAKER) (test code = 751) MEAN CORPUSCULAR HEMOGLOBIN CONC 32.5 GM/DL 32.0-36.0 (BEAKER) (test code = 752) RED CELL DISTRIBUTION WIDTH 17.8 % 12.0-15.0 H (BEAKER) (test code = 412) PLATELET COUNT (BEAKER) (test 453 K/CU MM 150-430 H code = 756) MEAN PLATELET VOLUME (BEAKER) 8.7 fL 6.0-11.5 (test code = 754) NUCLEATED RED BLOOD CELLS 0 /100 WBC 0-0 (BEAKER) (test code = 413) NEUTROPHILS RELATIVE PERCENT 87 % (BEAKER) (test code = 429) LYMPHOCYTES RELATIVE PERCENT 8 % (BEAKER) (test code = 430) MONOCYTES RELATIVE PERCENT 3 % (BEAKER) (test code = 431) EOSINOPHILS RELATIVE PERCENT 0 % (BEAKER) (test code = 432) BASOPHILS RELATIVE PERCENT 0 % (BEAKER) (test code = 437) NEUTROPHILS ABSOLUTE COUNT 19.22 K/ L 1.80-8.00 H (BEAKER) (test code = 670) LYMPHOCYTES ABSOLUTE COUNT 1.81 K/ L 1.48-4.50 (BEAKER) (test code = 414) MONOCYTES ABSOLUTE COUNT (BEAKER) 0.73 K/ L 0.00-1.30 (test code = 415) EOSINOPHILS ABSOLUTE COUNT 0.03 K/ L 0.00-0.50 (BEAKER) (test code = 416) BASOPHILS ABSOLUTE COUNT (BEAKER) 0.04 K/ L 0.00-0.20 (test code = 417) IMMATURE GRANULOCYTES-RELATIVE 1.00 % 0.00-0.00 H PERCENT (BEAKER) (test code = 2801) RAD, CHEST, 1 VIEW, NON [id number] 16:45:00 [facility] 1945 Sex: FFINAL REPORT Name: Yo CabanaCSN: [id number]: 1945 EXAMINATION: RAD, CHEST,1 VIEW, NON DEPT. INDICATION: 76-year-old female, follow-up pleural effusion. COMPARISON: Chest radiograph dated 01/08/2022. FINDINGS:The cardiac silhouette is normal in size. The thoracic vasculature is within normal limits. Right lower lobe relaxation atelectasis. Large right pleural effusion, similar to prior examination. No pneumothorax. No acute osseous abnormality. Visualized soft tissues are unremarkable. IMPRESSION:Large right pleural effusion, similar to prior examination. Signed: Castro Veras MDReport Verified Date/Time: 01/19/2022 16:45:46 Reading Location: [facility] B1 C013X Ortho Consult Reading Room RAD, CHEST, 1 VIEW, NON [id number] 16:44:00 [facility] 1945 Sex: FFINAL REPORT John Caban [id number] 04 19 45 Chest AP portable History provided:Shortness of breath Comparison studies: None Heart size normal. Large right pleural effusion opacifies the majority of the right hemithorax, with only a small aerated segment visible at the right lung apex. Left lung is clear with no pleural fluid on the left. Normal vascularity. IMPRESSION: Large right pleural effusion. Signed: Tejas Daniel MDReport Verified Date/Time: 01/19/2022 16:44:54 Reading Location: [facility] Diagnostic Imaging Reading Room - [facility] F1 1.310.12 , CHEST, 1 VIEW, NON [id number] 15:57:00 [facility] : 1945 Sex: FFINAL REPORT Exam: RAD, CHEST, PA OR AP, 1 VIEWDate: 01/12/2022 3:21 PM Indication:EffusionComparison: 01/10/2022 FINDINGS: Lines/Tubes/Devices: Right- sided pleural pigtail catheter in stable position. Overlying EKG leads. Lungs/pleura:Moderate right-sided effusion with perihilar and basilar opacities. Left hemithorax is grossly clear. No pneumothorax. Heart/Mediastinum:Unchanged. Bones/Soft Tissues: No acute osseous abnormality. Upper abdomen: Unremarkable. IMPRESSION:Right-sided pleuralpigtail catheter in stable position with moderate right-sided effusion.Right perihilar and basilar opacities, likely atelectasis. Superimposed infectious process and/or underlying mass not ruled out. Signed: Nicolás Lopes MDRirma Verified Date/Time: 01/19/2022 15:57:04 Reading Location: [facility] Diagnostic Imaging Reading Room [place] [address] 1310.12 Electronically signed by: NICOLÁS LOPES MD on 203:57 PMRAD, CHEST, 1 VIEW, NON DEPT 2022-01-19 15:18:00 [facility] 1945 Sex: FFINAL REPORT Yo CabanFelipe [id number] 04 19 46 Chest AP portable erect History provided: Right pleural effusion, status post right thoracentesis Significant pleural fluid has been removed on the right. A moderate amount of fluid remains, as the patient could not tolerate complete fluid evacuation. Atelectatic change in the right lower lobe. No pneumothorax. Left lung clear. Signed: Tejas Daniel Verified Date/Time: 01/19/2022 15:18:03 Reading Location: [facility] Imaging Reading Room [place] [address] 1.310.12 RAD, CHEST, 1 VIEW, NON DEPT 2022-01-19 14:24:00 [facility] 1945 Sex: FFINAL REPORT INDICATION: Pleural effusion COMPARISON: 01/12/2022 TECHNIQUE: Single frontal view of the chest. Yo [id number] FINDINGS: Lines, tubes, and devices: Right pigtail chest tube.Lungs and pleura: Moderate right-sided pleural effusion. Right retrocardiac opacity, representing singly or in combination pneumonia, atelectasis, or pleural effusion. No pneumothorax.Heart and mediastinum: Normal heart size. Unremarkable mediastinal contours.Osseous structures: No acute abnormality.Other: Postoperative changes from cholecystectomy are present. IMPRESSION: Moderate right pleural effusion with right pigtail chest tube present, similar to prior exam Signed: Adelita Lazaro Verified Date/Time: 01/19/2022 14:24:47 Reading Location: [address] Reading Room RAD, CHEST, 1 VIEW, NON [id number] 14:19:00 [facility] 1945 Sex: FFINAL REPORT Exam: RAD, CHEST, 1 VIEW, NON DEPTDate: 01/15/2022 3:36 PM Indication:Post surgeryComparison: Chest radiograph from earlier today. IMPRESSION: Lines/Tubes:Preceding placed pigtail right chest tube has been removed. There is now a right apical surgically placed chest tube. Lungsand Pleura :A moderate right hydropneumothorax. Additional opacities in the right lung may representconsolidation or adjacent passive atelectasis. Left hemithorax is clear. Heart/Mediastinum:Partiallyobscured due to adjacent opacities. Bones/Soft Tissues: No acute osseous abnormality. Upper abdomen:Unremarkable. Signed: Cali Degroot MDReport Verified Date/Time: 01/19/2022 14:19:49 Reading Location: [facility] Diagnostic Imaging Reading Room [place] [address], BRAIN, WITHOUT CONTRAST 2022-01-19 08:08:00 [facility] : 1945 Sex: FFINAL REPORT Patient name: RAFAEL Cabanedicnimco record number: [id number] [address] 1945 [address], BRAIN, WITHOUT IV CONTRAST CLINICAL INDICATION: Poor memory COMPARISON: None TECHNIQUE: Noncontrast axial CT imaging of the brain and skull. DOSE REDUCTION: Dose modulation, iterative reconstru ction, and/or weight-based adjustment of the mA/kV was utilized to reduce the radiation dose to as low as reasonably achievable. FINDINGS:No intracranial hemorrhage, midline shift or mass effect. Remote infarcts of the basal ganglia. Scattered foci of hypoattenuation are present throughout the periventricular and subcortical white matter, and, although nonspecific by imaging, statistically represent mild chronic microvascular ischemic changes in this age group. No hydrocephalus. Orbits are within normal limits. Prior bilateral lens surgery. No obstructive paranasal sinus disease. IMPRESSION: No acute intracranial findings If there is persistent clinical concern for intracranial pathology, MR examin ation is recommended for further characterization. Signed: Grace Thomas MDReport Verified Date/Time: 01/19/2022 08:08:13 Reading Location: [address] Reading Room CT, DRAINAGE, CHEST TUBE [id number] 07:59:00 [facility] : 1945 Sex: FFINAL REPORT Chanel [id number] chest tube insertionOctober 2021, [id number]: CT guided chest tube insertion Clinical History: Possible empyema DOSE REDUCTION: The exams was performed according to the departmental dose-optimization program which includes automated exposurecontrol, adjustment of the mA and/or kV according to patient size and/or use of iterative reconstruction technique. Consent: Benefits and risks were explained to the patient who gave consent to the procedure. Fluoro Time: 0.1 Minutes Procedure: The right chest was prepped and draped in usual sterile fashion. 1% lidocaine was used as local anesthetic. Under CT guidance, an 8.5 Jordanian APDL was inserted into the right pleural space. The catheter was secured using 2-0 silk and connected to Pleur-evac. Hemostasis was achieved. The patient tolerated the procedure well without any adverse reactions. She left the department in stable condition. Complication: None immediate Impression: 1. CT-guided right chest tube insertion as described. Signed: Francois Simmons MDReport Verified Date/Time: 01/19/2022 07:59:36 Reading Location: [facility] Diagnostic Imaging Reading Room [place] [address] 1.310.12 Electronically signedby: FRANCOIS SIMMONS M.D. on 01/19/2022 07:59 AMRAD, CHEST, 1 VIEW, NON [id number] 05:01:00Reason for exam:->hypoxiaShould this be performed at the bedside?->Yes [facility] 1945 Sex: FFINAL REPORT RAD, CHEST, 1 VIEW, NON DEPT INDICATION: hypoxia COMPARISON: 01/16/2022 FINDINGS: Portable frontal view of the chest. IMPRESSION: Support Lines: Stable right chest tube. Lungs and pleura: Unchanged moderate to large right pleural effusion. No new airspace consolidation. No pneumothorax. Heart and mediastinum: Stable contours. Additional findings: None. Signed: Wilner Copeland MDReport Verified Date/Time: 01/19/2022 05:01:10 COMPREHENSIVE METABOLIC PANEL 2022-01-19 04:17:54 Test Item Value Reference Range Interpretation Comments TOTAL PROTEIN 5.9 gm/dL 6.0-8.5 L (BEAKER) (test code = 770) ALBUMIN (BEAKER) 2.4 g/dL 3.5-5.0 L (test code = 1145) ALKALINE 51 U/L 30-115 PHOSPHATASE (BEAKER) (test code = 346) BILIRUBIN TOTAL 0.4 mg/dL 0.1-1.2 (BEAKER) (test code = 377) SODIUM (BEAKER) 136 meq/L 135-148 (test code = 381) POTASSIUM (BEAKER) 3.4 meq/L 3.6-5.5 L (test code = 379) CHLORIDE (BEAKER) 102 meq/L 98-106 (test code = 382) CO2 (BEAKER) (test 23 meq/L 20-29 code = 355) BLOOD UREA 8 mg/dL 10-26 L NITROGEN (BEAKER) (test code = 354) CREATININE 0.71 mg/dL 0.50-1.20 (BEAKER) (test code = 358) GLUCOSE RANDOM 107 mg/dL 70-110 (BEAKER) (test code = 652) CALCIUM (BEAKER) 8.8 mg/dL 8.5-10.5 (test code = 697) AST (SGOT) 14 U/L 5-40 (BEAKER) (test code = 353) ALT (SGPT) 6 U/L 5-50 (BEAKER) (test code = 347) EGFR (BEAKER) 88 Interpretatio n of eGFR (test code = 1092) mL/min/1.[address] age Description sq m Result G1 Cheryl l or high >=90 G2 Mildly decreased 60-89 G3a Mildl y to moderately 45-5 9 G3b Moderately to s everely 30-44 G4 Severl y decreased 15-29 G5 Kidney failure <15Reported eGF R is based on the CKD-EPI 2020 equation that d oes not use a race coefficientEsti mated GFR is not as accur ate as Creatinine Yanci cueva in predicting glom erular filtration rate . Estimated GFR is not appl icable for dialysis patien ts Unified Communications Engineer ID - [id number] W/PLT COUNT & AUTO [id number] 03:55:00 Test Item Value Reference Range Interpretation Comments WHITE BLOOD CELL COUNT (BEAKER) 21.8 K/ L 4.0-10.0 H (test code = 775) RED BLOOD CELL COUNT (BEAKER) 3.40 M/ L 4.00-5.00 L (test code = 761) HEMOGLOBIN (BEAKER) (test code = 8.2 GM/DL 12.0-15.5 L 410) HEMATOCRIT (BEAKER) (test code = 25.5 % 36.0-46.0 L 411) MEAN CORPUSCULAR VOLUME (BEAKER) 75 fL 82-99 L (test code = 753) MEAN CORPUSCULAR HEMOGLOBIN 24.1 pg 27.0-33.0 L (BEAKER) (test code = 751) MEAN CORPUSCULAR HEMOGLOBIN CONC 32.2 GM/DL 32.0-36.0 (BEAKER) (test code = 752) RED CELL DISTRIBUTION WIDTH 17.4 % 12.0-15.0 H (BEAKER) (test code = 412) PLATELET COUNT (BEAKER) (test 461 K/CU MM 150-430 H code = 756) MEAN PLATELET VOLUME (BEAKER) 9.0 fL 6.0-11.5 (test code = 754) NUCLEATED RED BLOOD CELLS 0 /100 WBC 0-0 (BEAKER) (test code = 413) NEUTROPHILS RELATIVE PERCENT 84 % (BEAKER) (test code = 429) LYMPHOCYTES RELATIVE PERCENT 11 % (BEAKER) (test code = 430) MONOCYTES RELATIVE PERCENT 4 % (BEAKER) (test code = 431) EOSINOPHILS RELATIVE PERCENT 0 % (BEAKER) (test code = 432) BASOPHILS RELATIVE PERCENT 0 % (BEAKER) (test code = 437) NEUTROPHILS ABSOLUTE COUNT 18.33 K/ L 1.80-8.00 H (BEAKER) (test code = 670) LYMPHOCYTES ABSOLUTE COUNT 2.33 K/ L 1.48-4.50 (BEAKER) (test code = 414) MONOCYTES ABSOLUTE COUNT (BEAKER) 0.76 K/ L 0.00-1.30 (test code = 415) EOSINOPHILS ABSOLUTE COUNT 0.02 K/ L 0.00-0.50 (BEAKER) (test code = 416) BASOPHILS ABSOLUTE COUNT (BEAKER) 0.06 K/ L 0.00-0.20 (test code = 417) IMMATURE GRANULOCYTES-RELATIVE 1.30 % 0.00-0.00 H PERCENT (BEAKER) (test code = 2801) VITAMIN [id number] 09:51:51 Test Item Value Reference Range Interpretation Comments VITAMIN B12 (BEAKER) (test code = > pg/mL 213-816 H 774) Unified Communications Engineer ID - FER ANDRADE, TIBC, % SAT. (WITHOUT FERRITIN)2022-01-18 09:26:44 Test Item Value Reference Range Interpretation Comments IRON (BEAKER) (test code = 547) 11.0 ug/dL 40.0-160.0 L TOTAL IRON BINDING CAPACITY 146 ug/dL 250-450 L (BEAKER) (test code = 769) IRON % SATURATION (2) (BEAKER) 8 % 20-55 L (test code = 2590) Unified Communications Engineer ID - FER GCOMPREHENSIVE METABOLIC [id number] 05:36:38 Test Item Value Reference Range Interpretation Comments TOTAL PROTEIN 6.6 gm/dL 6.0-8.5 (BEAKER) (test code = 770) ALBUMIN (BEAKER) 2.7 g/dL 3.5-5.0 L (test code = 1145) ALKALINE 50 U/L 30-115 PHOSPHATASE (BEAKER) (test code = 346) BILIRUBIN TOTAL 0.3 mg/dL 0.1-1.2 (BEAKER) (test code = 377) SODIUM (BEAKER) 137 meq/L 135-148 (test code = 381) POTASSIUM (BEAKER) 3.4 meq/L 3.6-5.5 L (test code = 379) CHLORIDE (BEAKER) 101 meq/L 98-106 (test code = 382) CO2 (BEAKER) (test 26 meq/L 20-29 code = 355) BLOOD UREA 10 mg/dL 10-26 NITROGEN (BEAKER) (test code = 354) CREATININE 0.74 mg/dL 0.50-1.20 (BEAKER) (test code = 358) GLUCOSE RANDOM 97 mg/dL 70-110 (BEAKER) (test code = 652) CALCIUM (BEAKER) 9.5 mg/dL 8.5-10.5 (test code = 697) AST (SGOT) 13 U/L 5-40 (BEAKER) (test code = 353) ALT (SGPT) 7 U/L 5-50 (BEAKER) (test code = 347) EGFR (BEAKER) 84 Interpretatio n of eGFR (test code = 1092) mL/min/1.[address] age Description sq m Result G1 Cheryl l or high >=90 G2 Mildly decreased 60-89 G3a Mildl y to moderately 45-5 9 G3b Moderately to s everely 30-44 G4 Severl y decreased 15-29 G5 Kidney failure <15Reported eGF R is based on the CKD-EPI 2020 equation that d oes not use a race coefficientEsti mated GFR is not as accur ate as Creatinine Yanci anay in predicting glom erular filtration rate . Estimated GFR is not appl icable for dialysis patien ts Unified Communications Engineer ID - CHOPZCBC W/PLT COUNT & AUTO [id number] 05:21:44 Test Item Value Reference Range Interpretation Comments WHITE BLOOD CELL COUNT (BEAKER) 25.3 K/ L 4.0-10.0 H (test code = 775) RED BLOOD CELL COUNT (BEAKER) 3.66 M/ L 4.00-5.00 L (test code = 761) HEMOGLOBIN (BEAKER) (test code = 8.7 GM/DL 12.0-15.5 L 410) HEMATOCRIT (BEAKER) (test code = 27.9 % 36.0-46.0 L 411) MEAN CORPUSCULAR VOLUME (BEAKER) 76 fL 82-99 L (test code = 753) MEAN CORPUSCULAR HEMOGLOBIN 23.8 pg 27.0-33.0 L (BEAKER) (test code = 751) MEAN CORPUSCULAR HEMOGLOBIN CONC 31.2 GM/DL 32.0-36.0 L (BEAKER) (test code = 752) RED CELL DISTRIBUTION WIDTH 17.3 % 12.0-15.0 H (BEAKER) (test code = 412) PLATELET COUNT (BEAKER) (test 502 K/CU MM 150-430 H code = 756) MEAN PLATELET VOLUME (BEAKER) 9.3 fL 6.0-11.5 (test code = 754) NUCLEATED RED BLOOD CELLS 0 /100 WBC 0-0 (BEAKER) (test code = 413) NEUTROPHILS RELATIVE PERCENT 79 % (BEAKER) (test code = 429) LYMPHOCYTES RELATIVE PERCENT 15 % (BEAKER) (test code = 430) MONOCYTES RELATIVE PERCENT 5 % (BEAKER) (test code = 431) EOSINOPHILS RELATIVE PERCENT 1 % (BEAKER) (test code = 432) BASOPHILS RELATIVE PERCENT 0 % (BEAKER) (test code = 437) NEUTROPHILS ABSOLUTE COUNT 19.94 K/ L 1.80-8.00 H (BEAKER) (test code = 670) LYMPHOCYTES ABSOLUTE COUNT 3.67 K/ L 1.48-4.50 (BEAKER) (test code = 414) MONOCYTES ABSOLUTE COUNT (BEAKER) 1.21 K/ L 0.00-1.30 (test code = 415) EOSINOPHILS ABSOLUTE COUNT 0.12 K/ L 0.00-0.50 (BEAKER) (test code = 416) BASOPHILS ABSOLUTE COUNT (BEAKER) 0.06 K/ L 0.00-0.20 (test code = 417) IMMATURE GRANULOCYTES-RELATIVE 1.30 % 0.00-0.00 H PERCENT (BEAKER) (test code = 2801) CBC W/PLT COUNT & AUTO [id number] 07:12:02 Test Item Value Reference Range Interpretation Comments WHITE BLOOD CELL COUNT (BEAKER) 20.4 K/ L 4.0-10.0 H (test code = 775) RED BLOOD CELL COUNT (BEAKER) 3.85 M/ L 4.00-5.00 L (test code = 761) HEMOGLOBIN (BEAKER) (test code = 9.2 GM/DL 12.0-15.5 L 410) HEMATOCRIT (BEAKER) (test code = 29.7 % 36.0-46.0 L 411) MEAN CORPUSCULAR VOLUME (BEAKER) 77 fL 82-99 L (test code = 753) MEAN CORPUSCULAR HEMOGLOBIN 23.9 pg 27.0-33.0 L (BEAKER) (test code = 751) MEAN CORPUSCULAR HEMOGLOBIN CONC 31.0 GM/DL 32.0-36.0 L (BEAKER) (test code = 752) RED CELL DISTRIBUTION WIDTH 17.5 % 12.0-15.0 H (BEAKER) (test code = 412) PLATELET COUNT (BEAKER) (test 422 K/CU MM 150-430 code = 756) MEAN PLATELET VOLUME (BEAKER) 9.5 fL 6.0-11.5 (test code = 754) NUCLEATED RED BLOOD CELLS 0 /100 WBC 0-0 (BEAKER) (test code = 413) NEUTROPHILS RELATIVE PERCENT 83 % (BEAKER) (test code = 429) LYMPHOCYTES RELATIVE PERCENT 10 % (BEAKER) (test code = 430) MONOCYTES RELATIVE PERCENT 5 % (BEAKER) (test code = 431) EOSINOPHILS RELATIVE PERCENT 0 % (BEAKER) (test code = 432) BASOPHILS RELATIVE PERCENT 0 % (BEAKER) (test code = 437) NEUTROPHILS ABSOLUTE COUNT 16.90 K/ L 1.80-8.00 H (BEAKER) (test code = 670) LYMPHOCYTES ABSOLUTE COUNT 2.05 K/ L 1.48-4.50 (BEAKER) (test code = 414) MONOCYTES ABSOLUTE COUNT (BEAKER) 0.98 K/ L 0.00-1.30 (test code = 415) EOSINOPHILS ABSOLUTE COUNT 0.09 K/ L 0.00-0.50 (BEAKER) (test code = 416) BASOPHILS ABSOLUTE COUNT (BEAKER) 0.06 K/ L 0.00-0.20 (test code = 417) IMMATURE GRANULOCYTES-RELATIVE 1.50 % 0.00-0.00 H PERCENT (BEAKER) (test code = 2801) COMPREHENSIVE METABOLIC [id number] 05:22:01 Test Item Value Reference Range Interpretation Comments TOTAL PROTEIN 6.5 gm/dL 6.0-8.5 (BEAKER) (test code = 770) ALBUMIN (BEAKER) 2.7 g/dL 3.5-5.0 L (test code = 1145) ALKALINE 54 U/L 30-115 PHOSPHATASE (BEAKER) (test code = 346) BILIRUBIN TOTAL 0.3 mg/dL 0.1-1.2 (BEAKER) (test code = 377) SODIUM (BEAKER) 136 meq/L 135-148 (test code = 381) POTASSIUM (BEAKER) 4.1 meq/L 3.6-5.5 (test code = 379) CHLORIDE (BEAKER) 102 meq/L 98-106 (test code = 382) CO2 (BEAKER) (test 23 meq/L 20-29 code = 355) BLOOD UREA 13 mg/dL 10-26 NITROGEN (BEAKER) (test code = 354) CREATININE 0.85 mg/dL 0.50-1.20 (BEAKER) (test code = 358) GLUCOSE RANDOM 109 mg/dL 70-110 (BEAKER) (test code = 652) CALCIUM (BEAKER) 9.2 mg/dL 8.5-10.5 (test code = 697) AST (SGOT) 16 U/L 5-40 (BEAKER) (test code = 353) ALT (SGPT) 6 U/L 5-50 (BEAKER) (test code = 347) EGFR (BEAKER) 71 Interpretatio n of eGFR (test code = 1092) mL/min/1.[address] age Description sq m Result G1 Cheryl l or high >=90 G2 Mildly decreased 60-89 G3a Mildl y to moderately 45-5 9 G3b Moderately to s everely 30-44 G4 Severl y decreased 15-29 G5 Kidney failure <15Reported eGF R is based on the CKD-EPI 2020 equation that d oes not use a race coefficientEsti mated GFR is not as accur ate as Creatinine Yanci cueva in predicting glom erular filtration rate . Estimated GFR is not appl icable for dialysis patien ts Unified Communications Engineer ID - CHRISTINERAD, CHEST, 1 VIEW, NON [id number] 01:34:00 [facility] 1945 Sex: FFINAL REPORT RAD, CHEST, 1 VIEW, NON DEPT CLINICAL STATEMENT: Status post right thoracentesis. No prior studies available at this time at this institution for comparison. Findings: Right chest tube. No pneumothorax. Heart is moderately enlarged. Right mid and lower lobe airspace consolidation again noted. Left lung is clear. IMPRESSION: Right chest tube in place with right lower lung consolidation consistent with pneumonia. Underlying mass cannot be excluded. Signed: William Carcamo Verified Date/Time: 01/16/2022 01:34:29 POC glucose 2021-12-18 15:44:00 Test Item Value Reference Range Interpretation Comments POC glucose (test 99 mg/dL 65-99 Unified Communications Engineer N dary: Drake code = 15963-5) AidenDevice ID: [id number] [facility] [id number] 15:44:00 Test Item Value Reference Range Interpretation Comments POC glucose (test 99 mg/dL 65-99 Unified Communications Engineer N dary: Drake code = 96445-4) AidenDevice ID: [id number] [facility] [Presence] in Respiratory specimen by SABA with probe [id number] 17:21:32 Test Item Value Reference Range Interpretation Comments SARS-CoV-2 (COVID-19) RNA Not detected [Presence] in Respiratory specimen by SABA with probe detection (test code = 45538-1) Whether patient is employed in a Unknown healthcare setting (test code = 57414-5) Whether the patient has symptoms Unknown related to condition of interest (test code = 54729-2) Whether the patient was Unknown hospitalized for condition of interest (test code = 84952-4) Whether the patient was admitted Unknown to intensive care unit (ICU) for condition of interest (test code = 05103-7) Whether patient resides in a Unknown congregate care setting (test code = 45429-0) status (test code = Unknown 67504-0) Date and time of symptom onset Unknown (test code = 53301-1) [facility] [id number] 14:35:50 Test Item Value Reference Range Interpretation Comments Case number (test code = [id number]) Surgical pathology See link below for report (test code = PDF Lab Report [id number]) Result status (test code This is Final Report = [id number]) for [id number] [facility] Auto Differential panel - [id number] 00:00:00 Test Item Value Reference Range Interpretation Comments Leukocytes [#/volume] in Blood 11.0 x10e3/uL 3.4-10.8 H by Automated count (test code = 6690-2) Erythrocytes [#/volume] in 4.70 x10e6/uL 3.77-5.28 Blood by Automated count (test code = 789-8) Hemoglobin [Mass/volume] in 10.8 g/dL 11.1-15.9 L Blood (test code = 718-7) Hematocrit [Volume Fraction] of 33.5 % 34.0-46.6 L Blood by Automated count (test code = 4544-3) Erythrocyte mean corpuscular 71 fL 79-97 L volume [Entitic volume] by Automated count (test code = 787-2) MCH [Entitic mass] by Automated 23.0 pg 26.6-33.0 L count (test code = 785-6) Erythrocyte mean corpuscular 32.2 g/dL 31.5-35.7 hemoglobin concentration [Mass/volume] by Automated count (test code = 786-4) Erythrocyte distribution width 16.0 % 11.7-15.4 H [Ratio] by Automated count (test code = 788-0) Platelets [#/volume] in Blood 498 x10e3/uL 150-450 H by Automated count (test code = 777-3) Neutrophils/100 leukocytes in 67 % not estab. Blood by Automated count (test code = 770-8) Lymphocytes/100 leukocytes in 26 % not estab. Blood by Automated count (test code = 736-9) Monocytes/100 leukocytes in 6 % not estab. Blood by Automated count (test code = 5905-5) Eosinophils/100 leukocytes in 1 % not estab. Blood by Automated count (test code = 713-8) Basophils/100 leukocytes in 0 % not estab. Blood by Automated count (test code = 706-2) immature cells (test code = rod pointer immature cells) Neutrophils [#/volume] in Blood 7.3 x10e3/uL 1.4-7.0 H by Automated count (test code = 751-8) Lymphocytes [#/volume] in Blood 2.9 x10e3/uL 0.7-3.1 by Automated count (test code = 731-0) Monocytes [#/volume] in Blood 0.6 x10e3/uL 0.1-0.9 by Automated count (test code = 742-7) Eosinophils [#/volume] in Blood 0.1 x10e3/uL 0.0-0.4 by Automated count (test code = 711-2) Basophils [#/volume] in Blood 0.0 x10e3/uL 0.0-0.2 by Automated count (test code = 704-7) Immature granulocytes/100 0 % not estab. leukocytes in Blood by Automated count (test code = 70030-1) Immature granulocytes 0.0 x10e3/uL 0.0-0.1 [#/volume] in Blood by Automated count (test code = 27256-3) Nucleated erythrocytes/100 rod pointer leukocytes [Ratio] in Blood by Automated count (test code = 63725-8) Morphology [Interpretation] in rod pointer Blood Narrative (test code = 90127-1) [facility] - Serum or [id number] 00:00:00 Test Item Value Reference Range Interpretation Comments Glucose [Mass/volume] in Serum 100 mg/dL 65-99 H or Plasma (test code = 2345-7) Urea nitrogen [Mass/volume] in 11 mg/dL 8-27 Serum or Plasma (test code = 3094-0) Creatinine [Mass/volume] in 0.72 mg/dL 0.57-1.00 Serum or Plasma (test code = 2160-0) eGFR (test code = eGFR) 87 mL/min/1.73 >59 Urea nitrogen/Creatinine [Mass 15 12-28 Ratio] in Serum or Plasma (test code = 3097-3) Sodium [Moles/volume] in Serum 138 mmol/L 134-144 or Plasma (test code = 2951-2) Potassium [Moles/volume] in 4.2 mmol/L 3.5-5.2 Serum or Plasma (test code = 2823-3) Chloride [Moles/volume] in 100 mmol/L 96-106 Serum or Plasma (test code = 5-0) Carbon dioxide, total 25 mmol/L 20-29 [Moles/volume] in Serum or Plasma (test code = 2027-) Calcium [Mass/volume] in Serum 9.8 mg/dL 8.7-10.3 or Plasma (test code = 25453-7) Protein [Mass/volume] in Serum 7.5 g/dL 6.0-8.5 or Plasma (test code = 2885-2) Albumin [Mass/volume] in Serum 3.9 g/dL 3.7-4.7 or Plasma (test code = 1751-7) Globulin [Mass/volume] in 3.6 g/dL 1.5-4.5 Serum by calculation (test code = 08803-6) Albumin/Globulin [Mass Ratio] 1.1 1.2-2.2 L in Serum or Plasma (test code = 1759-0) Bilirubin.total [Mass/volume] 0.2 mg/dL 0.0-1.2 in Serum or Plasma (test code = 1974-2) Alkaline phosphatase 85 IU/L 44-121 [Enzymatic activity/volume] in Serum or Plasma (test code = 6768-6) Aspartate aminotransferase 17 IU/L 0-40 [Enzymatic activity/volume] in Serum or Plasma (test code = 1920-8) Alanine aminotransferase 12 IU/L 0-32 [Enzymatic activity/volume] in Serum or Plasma (test code = 1742-6) [facility] Ref[facility] Culture panel - [id number] 00:00:00 Test Item Value Reference Range Interpretation Comments Specific gravity of Urine by Test 1.008 1.005-1.030 strip (test code = 5811-5) pH of Urine by Test strip (test 7.0 5.0-7.5 code = 5803-2) Color of Urine (test code = 5778-6) yellow yellow Appearance of Urine (test code = clear clear 5767-9) Leukocyte esterase [Presence] in 2+ negative A Urine by Test strip (test code = 5799-2) Protein [Presence] in Urine by Test negative negative/trace strip (test code = 67656-9) Glucose [Presence] in Urine by Test negative negative strip (test code = 15775-3) Ketones [Presence] in Urine by Test negative negative strip (test code = 2514-8) Hemoglobin [Presence] in Urine by negative negative Test strip (test code = 5794-3) Bilirubin.total [Presence] in Urine negative negative by Test strip (test code = 5770-3) Urobilinogen [Mass/volume] in Urine 0.2 mg/dL 0.2-1.0 by Test strip (test code = 70512-7) Nitrite [Presence] in Urine by Test negative negative strip (test code = 5802-4) Microscopic observation rod pointer [Identifier] in Urine sediment by Light microscopy (test code = 24401-3) Leukocytes [#/area] in Urine 6-10 0-5 A sediment by Microscopy high power field (test code = 5821-4) Erythrocytes [#/area] in Urine 0-2 0-2 sediment by Microscopy high power field (test code = 94762-3) Epithelial cells [#/area] in Urine 0-10 0-10 sediment by Microscopy high power field (test code = 5787-7) Epithelial cells.renal [#/area] in rod pointer Urine sediment by Microscopy high power field (test code = 00877-3) Casts [Presence] in Urine sediment none seen none seen by Light microscopy (test code = 16725-3) Casts [Type] in Urine sediment by rod pointer Light microscopy (test code = 29947-0) Unidentified crystals [Presence] in rod pointer Urine sediment by Light microscopy (test code = 5783-6) Crystals [type] in Urine sediment rod pointer by Light microscopy (test code = 5782-8) Mucus [Presence] in Urine sediment rod pointer by Light microscopy (test code = 8247-9) Bacteria [#/area] in Urine sediment none seen none seen/few by Microscopy high power field (test code = 5769-5) Yeast [#/area] in Urine sediment by rod pointer Microscopy high power field (test code = 5822-2) Trichomonas vaginalis [Presence] in rod pointer Urine sediment by Light microscopy (test code = 5813-1) Urine sediment comments by Light rod pointer microscopy Narrative (test code = 93603-1) urinalysis reflex (test code = comment urinalysis reflex) Bacteria identified in Urine by comment A Culture (test code = 630-4) [facility]BC + ferritin, [id number] 00:00:00 Test Item Value Reference Range Interpretation Comments Iron binding capacity [Mass/volume] 252 ug/dL 250-450 in Serum or Plasma (test code = 2500-7) Iron binding capacity.unsaturated 228 ug/dL 118-369 [Mass/volume] in Serum or Plasma (test code = 2501-5) Iron [Mass/volume] in Serum or 24 ug/dL 27-139 L Plasma (test code = 2498-4) Iron saturation [Mass Fraction] in 10 % 15-55 L Serum or Plasma (test code = 2502-3) [facility] CenterCancer Ag 125 [Units/volume] in Serum or Plasma 2021-08-06 00:00:00 Test Item Value Reference Range Interpretation Comments Cancer Ag 125 [Units/volume] in 12.1 U/mL 0.0-38.1 Serum or Plasma (test code = 12377-7) Report (test code = 11591-0) . [facility] CenterErythrocyte sedimentation [id number] 00:00:00 Test Item Value Reference Range Interpretation Comments Erythrocyte sedimentation rate by 110 mm/HR 0-40 H Westergren method (test code = 4537-7) [facility] reactive protein [Mass/volume] in Serum or [id number] 00:00:00 Test Item Value Reference Range Interpretation Comments C reactive protein [Mass/volume] in 27 mg/L 0-10 H Serum or Plasma (test code = 1988-5) [facility] W Differential panel, method unspecified - [id number] 00:00:00 Test Item Value Reference Range Interpretation Comments Leukocytes [#/volume] in Blood 13.6 x10e3/uL 3.4-10.8 H by Automated count (test code = 6690-2) Erythrocytes [#/volume] in 4.76 x10e6/uL 3.77-5.28 Blood by Automated count (test code = 789-8) Hemoglobin [Mass/volume] in 10.6 g/dL 11.1-15.9 L Blood (test code = 718-7) Hematocrit [Volume Fraction] of 33.6 % 34.0-46.6 L Blood by Automated count (test code = 4544-3) Erythrocyte mean corpuscular 71 fL 79-97 L volume [Entitic volume] by Automated count (test code = 787-2) MCH [Entitic mass] by Automated 22.3 pg 26.6-33.0 L count (test code = 785-6) Erythrocyte mean corpuscular 31.5 g/dL 31.5-35.7 hemoglobin concentration [Mass/volume] by Automated count (test code = 786-4) Erythrocyte distribution width 15.4 % 11.7-15.4 [Ratio] by Automated count (test code = 788-0) Platelets [#/volume] in Blood 523 x10e3/uL 150-450 H by Automated count (test code = 777-3) Neutrophils/100 leukocytes in 61 % not estab. Blood by Automated count (test code = 770-8) Lymphocytes/100 leukocytes in 30 % not estab. Blood by Automated count (test code = 736-9) Monocytes/100 leukocytes in 7 % not estab. Blood by Automated count (test code = 5905-5) Eosinophils/100 leukocytes in 1 % not estab. Blood by Automated count (test code = 713-8) Basophils/100 leukocytes in 0 % not estab. Blood by Automated count (test code = 706-2) immature cells (test code = rod pointer immature cells) Neutrophils [#/volume] in Blood 8.4 x10e3/uL 1.4-7.0 H by Automated count (test code = 751-8) Lymphocytes [#/volume] in Blood 4.0 x10e3/uL 0.7-3.1 H by Automated count (test code = 731-0) Monocytes [#/volume] in Blood 1.0 x10e3/uL 0.1-0.9 H by Automated count (test code = 742-7) Eosinophils [#/volume] in Blood 0.1 x10e3/uL 0.0-0.4 by Automated count (test code = 711-2) Basophils [#/volume] in Blood 0.1 x10e3/uL 0.0-0.2 by Automated count (test code = 704-7) Immature granulocytes/100 1 % not estab. leukocytes in Blood by Automated count (test code = 97400-7) Immature granulocytes 0.1 x10e3/uL 0.0-0.1 [#/volume] in Blood by Automated count (test code = 17682-6) Nucleated erythrocytes/100 rod pointer leukocytes [Ratio] in Blood by Automated count (test code = 42942-9) Morphology [Interpretation] in rod pointer Blood Narrative (test code = 34315-8) [facility] CenterCom[facility] 2000 panel - Serum or [id number] 00:00:00 Test Item Value Reference Range Interpretation Comments Glucose [Mass/volume] in Serum 70 mg/dL 65-99 or Plasma (test code = 2345-7) Urea nitrogen [Mass/volume] in 13 mg/dL 8-27 Serum or Plasma (test code = 3094-0) Creatinine [Mass/volume] in 0.83 mg/dL 0.57-1.00 Serum or Plasma (test code = 2160-0) eGFR (test code = eGFR) 73 mL/min/1.73 >59 Urea nitrogen/Creatinine [Mass 16 12-28 Ratio] in Serum or Plasma (test code = 3097-3) Sodium [Moles/volume] in Serum 140 mmol/L 134-144 or Plasma (test code = 2951-2) Potassium [Moles/volume] in 3.7 mmol/L 3.5-5.2 Serum or Plasma (test code = 2823-3) Chloride [Moles/volume] in 98 mmol/L 96-106 Serum or Plasma (test code = 2075-0) Carbon dioxide, total 23 mmol/L 20-29 [Moles/volume] in Serum or Plasma (test code = 2027-9) Calcium [Mass/volume] in Serum 10.0 mg/dL 8.7-10.3 or Plasma (test code = 01109-7) Protein [Mass/volume] in Serum 7.3 g/dL 6.0-8.5 or Plasma (test code = 2885-2) Albumin [Mass/volume] in Serum 3.9 g/dL 3.7-4.7 or Plasma (test code = 1751-7) Globulin [Mass/volume] in 3.4 g/dL 1.5-4.5 Serum by calculation (test code = 86599-2) Albumin/Globulin [Mass Ratio] 1.1 1.2-2.2 L in Serum or Plasma (test code = 1759-0) Bilirubin.total [Mass/volume] <0.2 0.0-1.2 in Serum or Plasma (test code = 1974-2) Alkaline phosphatase 82 IU/L 44-121 [Enzymatic activity/volume] in Serum or Plasma (test code = 6768-6) Aspartate aminotransferase 17 IU/L 0-40 [Enzymatic activity/volume] in Serum or Plasma (test code = 1920-8) Alanine aminotransferase 9 IU/L 0-32 [Enzymatic activity/volume] in Serum or Plasma (test code = 1742-6) [facility] [id number] 00:00:00 Test Item Value Reference Range Interpretation Comments Iron binding capacity [Mass/volume] 252 ug/dL 250-450 in Serum or Plasma (test code = 2500-7) Iron binding capacity.unsaturated 231 ug/dL 118-369 [Mass/volume] in Serum or Plasma (test code = 2501-5) Iron [Mass/volume] in Serum or 21 ug/dL 27-139 L Plasma (test code = 2498-4) Iron saturation [Mass Fraction] in 8 % 15-55 L Serum or Plasma (test code = 2502-3) [facility] [id number] 00:00:00 Test Item Value Reference Range Interpretation Comments Thyrotropin [Units/volume] in 0.232 uIU/mL 0.450-4.500 L Serum or Plasma by Detection limit <= 0.005 mIU/L (test code = 02736-3) Thyroxine (T4) [Mass/volume] in 7.2 ug/dL 4.5-12.0 Serum or Plasma (test code = 3026-2) [facility]yanocobalamin [Interpretation] in Serum or [id number] 00:00:00 Test Item Value Reference Range Interpretation Comments Cobalamin (Vitamin B12) [Mass/volume] >2000 232-1245 H in Serum or Plasma (test code = 2132-9) Folate [Mass/volume] in Serum or Plasma >20.0 >3.0 (test code = 2284-8) [facility]25-Hydro[facility] D3+25-Hydroxyvitamin D2 [Mass/volume] in Serum or [id number] 00:00:00 Test Item Value Reference Range Interpretation Comments 25-Hydroxyvitamin 84.5 NG/mL 30.0-100.0 D3+25-Hydroxyvitamin D2 [Mass/volume] in Serum or Plasma (test code = 17427-5) [facility] W Differential panel, method unspecified - [id number] 00:00:00 Test Item Value Reference Range Interpretation Comments Leukocytes [#/volume] in Blood 13.6 x10e3/uL 3.4-10.8 H by Automated count (test code = 6690-2) Erythrocytes [#/volume] in 4.76 x10e6/uL 3.77-5.28 Blood by Automated count (test code = 789-8) Hemoglobin [Mass/volume] in 10.6 g/dL 11.1-15.9 L Blood (test code = 718-7) Hematocrit [Volume Fraction] of 33.6 % 34.0-46.6 L Blood by Automated count (test code = 4544-3) Erythrocyte mean corpuscular 71 fL 79-97 L volume [Entitic volume] by Automated count (test code = 787-2) MCH [Entitic mass] by Automated 22.3 pg 26.6-33.0 L count (test code = 785-6) Erythrocyte mean corpuscular 31.5 g/dL 31.5-35.7 hemoglobin concentration [Mass/volume] by Automated count (test code = 786-4) Erythrocyte distribution width 15.4 % 11.7-15.4 [Ratio] by Automated count (test code = 788-0) Platelets [#/volume] in Blood 523 x10e3/uL 150-450 H by Automated count (test code = 777-3) Neutrophils/100 leukocytes in 61 % not estab. Blood by Automated count (test code = 770-8) Lymphocytes/100 leukocytes in 30 % not estab. Blood by Automated count (test code = 736-9) Monocytes/100 leukocytes in 7 % not estab. Blood by Automated count (test code = 5905-5) Eosinophils/100 leukocytes in 1 % not estab. Blood by Automated count (test code = 713-8) Basophils/100 leukocytes in 0 % not estab. Blood by Automated count (test code = 706-2) immature cells (test code = rod pointer immature cells) Neutrophils [#/volume] in Blood 8.4 x10e3/uL 1.4-7.0 H by Automated count (test code = 751-8) Lymphocytes [#/volume] in Blood 4.0 x10e3/uL 0.7-3.1 H by Automated count (test code = 731-0) Monocytes [#/volume] in Blood 1.0 x10e3/uL 0.1-0.9 H by Automated count (test code = 742-7) Eosinophils [#/volume] in Blood 0.1 x10e3/uL 0.0-0.4 by Automated count (test code = 711-2) Basophils [#/volume] in Blood 0.1 x10e3/uL 0.0-0.2 by Automated count (test code = 704-7) Immature granulocytes/100 1 % not estab. leukocytes in Blood by Automated count (test code = 34405-5) Immature granulocytes 0.1 x10e3/uL 0.0-0.1 [#/volume] in Blood by Automated count (test code = 17420-7) Nucleated erythrocytes/100 rod pointer leukocytes [Ratio] in Blood by Automated count (test code = 77297-0) Morphology [Interpretation] in rod pointer Blood Narrative (test code = 26618-6) [facility] 2000 [facility] - Serum or [id number] 00:00:00 Test Item Value Reference Range Interpretation Comments Glucose [Mass/volume] in Serum 70 mg/dL 65-99 or Plasma (test code = 2345-7) Urea nitrogen [Mass/volume] in 13 mg/dL 8-27 Serum or Plasma (test code = 3094-0) Creatinine [Mass/volume] in 0.83 mg/dL 0.57-1.00 Serum or Plasma (test code = 2160-0) eGFR (test code = eGFR) 73 mL/min/1.73 >59 Urea nitrogen/Creatinine [Mass 16 12-28 Ratio] in Serum or Plasma (test code = 3097-3) Sodium [Moles/volume] in Serum 140 mmol/L 134-144 or Plasma (test code = 2951-2) Potassium [Moles/volume] in 3.7 mmol/L 3.5-5.2 Serum or Plasma (test code = 2823-3) Chloride [Moles/volume] in 98 mmol/L 96-106 Serum or Plasma (test code = 2074-0) Carbon dioxide, total 23 mmol/L 20-29 [Moles/volume] in Serum or Plasma (test code = 2027-9) Calcium [Mass/volume] in Serum 10.0 mg/dL 8.7-10.3 or Plasma (test code = 20945-8) Protein [Mass/volume] in Serum 7.3 g/dL 6.0-8.5 or Plasma (test code = 2885-2) Albumin [Mass/volume] in Serum 3.9 g/dL 3.7-4.7 or Plasma (test code = 175-7) Globulin [Mass/volume] in 3.4 g/dL 1.5-4.5 Serum by calculation (test code = 95793-4) Albumin/Globulin [Mass Ratio] 1.1 1.2-2.2 L in Serum or Plasma (test code = 1759-0) Bilirubin.total [Mass/volume] <0.2 0.0-1.2 in Serum or Plasma (test code = 1974-) Alkaline phosphatase 82 IU/L 44-121 [Enzymatic activity/volume] in Serum or Plasma (test code = 6768-6) Aspartate aminotransferase 17 IU/L 0-40 [Enzymatic activity/volume] in Serum or Plasma (test code = 1920-8) Alanine aminotransferase 9 IU/L 0-32 [Enzymatic activity/volume] in Serum or Plasma (test code = 1742-6) [facility] TIBC + ferritin, [id number] 00:00:00 Test Item Value Reference Range Interpretation Comments Iron binding capacity [Mass/volume] 252 ug/dL 250-450 in Serum or Plasma (test code = 2500-7) Iron binding capacity.unsaturated 231 ug/dL 118-369 [Mass/volume] in Serum or Plasma (test code = 2501-5) Iron [Mass/volume] in Serum or 21 ug/dL 27-139 L Plasma (test code = 2498-4) Iron saturation [Mass Fraction] in 8 % 15-55 L Serum or Plasma (test code = 2502-3) [facility] + T4, [id number] 00:00:00 Test Item Value Reference Range Interpretation Comments Thyrotropin [Units/volume] in 0.232 uIU/mL 0.450-4.500 L Serum or Plasma by Detection limit <= 0.005 mIU/L (test code = 05526-3) Thyroxine (T4) [Mass/volume] in 7.2 ug/dL 4.5-12.0 Serum or Plasma (test code = 3026-2) [facility] CenterFolate+Cyanocobalamin [Interpretation] in Serum or [id number] 00:00:00 Test Item Value Reference Range Interpretation Comments Cobalamin (Vitamin B12) [Mass/volume] >2000 232-1245 H in Serum or Plasma (test code = 2132-9) Folate [Mass/volume] in Serum or Plasma >20.0 >3.0 (test code = 2284-8) [facility]25-Hydroxyvitamin D3+25-Hydroxyvitamin D2 [Mass/volume] in Serum or [id number] 00:00:00 Test Item Value Reference Range Interpretation Comments 25-Hydroxyvitamin 84.5 NG/mL 30.0-100.0 D3+25-Hydroxyvitamin D2 [Mass/volume] in Serum or Plasma (test code = 43161-8) [facility] CenterHemoglobin A1c/Hemoglobin.total in Blood 2020-12-25 00:00:00 Test Item Value Reference Range Interpretation Comments Hemoglobin A1c/Hemoglobin.total in 5.8 % 4.8-5.6 H Blood (test code = 4548-4) [facility] + T4, [id number] 00:00:00 Test Item Value Reference Range Interpretation Comments Thyrotropin [Units/volume] in 0.014 uIU/mL 0.450-4.500 L Serum or Plasma by Detection limit <= 0.005 mIU/L (test code = 67012-3) Thyroxine (T4) free 1.22 NG/dL 0.82-1.77 [Mass/volume] in Serum or Plasma (test code = 3024-7) [facility] W Auto Differential panel - [id number] 00:00:00 Test Item Value Reference Range Interpretation Comments Leukocytes [#/volume] in Blood 9.3 x10e3/uL 3.4-10.8 by Automated count (test code = 6690-2) Erythrocytes [#/volume] in 4.56 x10e6/uL 3.77-5.28 Blood by Automated count (test code = 789-8) Hemoglobin [Mass/volume] in 11.7 g/dL 11.1-15.9 Blood (test code = 718-7) Hematocrit [Volume Fraction] of 34.9 % 34.0-46.6 Blood by Automated count (test code = 4544-3) Erythrocyte mean corpuscular 77 fL 79-97 L volume [Entitic volume] by Automated count (test code = 787-2) Erythrocyte mean corpuscular 25.7 pg 26.6-33.0 L hemoglobin [Entitic mass] by Automated count (test code = 785-6) Erythrocyte mean corpuscular 33.5 g/dL 31.5-35.7 hemoglobin concentration [Mass/volume] by Automated count (test code = 786-4) Erythrocyte distribution width 14.4 % 11.7-15.4 [Ratio] by Automated count (test code = 788-0) Platelets [#/volume] in Blood 365 x10e3/uL 150-450 by Automated count (test code = 777-3) Neutrophils/100 leukocytes in 60 % not estab. Blood by Automated count (test code = 770-8) Lymphocytes/100 leukocytes in 32 % not estab. Blood by Automated count (test code = 736-9) Monocytes/100 leukocytes in 6 % not estab. Blood by Automated count (test code = 5905-5) Eosinophils/100 leukocytes in 1 % not estab. Blood by Automated count (test code = 713-8) Basophils/100 leukocytes in 1 % not estab. Blood by Automated count (test code = 706-2) immature cells (test code = rod pointer immature cells) Neutrophils [#/volume] in Blood 5.5 x10e3/uL 1.4-7.0 by Automated count (test code = 751-8) Lymphocytes [#/volume] in Blood 3.0 x10e3/uL 0.7-3.1 by Automated count (test code = 731-0) Monocytes [#/volume] in Blood 0.6 x10e3/uL 0.1-0.9 by Automated count (test code = 742-7) Eosinophils [#/volume] in Blood 0.1 x10e3/uL 0.0-0.4 by Automated count (test code = 711-2) Basophils [#/volume] in Blood 0.1 x10e3/uL 0.0-0.2 by Automated count (test code = 704-7) Immature granulocytes/100 0 % not estab. leukocytes in Blood by Automated count (test code = 23075-0) Immature granulocytes 0.0 x10e3/uL 0.0-0.1 [#/volume] in Blood by Automated count (test code = 29101-1) Nucleated erythrocytes/100 rod pointer leukocytes [Ratio] in Blood by Automated count (test code = 29151-2) Morphology [Interpretation] in rod pointer Blood Narrative (test code = 78355-0) [facility] CenterCom[facility] 2000 [facility] - Serum or [id number] 00:00:00 Test Item Value Reference Range Interpretation Comments Glucose [Mass/volume] in Serum 107 mg/dL 65-99 H or Plasma (test code = 2345-7) Urea nitrogen [Mass/volume] in 12 mg/dL 8-27 Serum or Plasma (test code = 3094-0) Creatinine [Mass/volume] in 0.76 mg/dL 0.57-1.00 Serum or Plasma (test code = 2160-0) Glomerular filtration 77 mL/min/1.73 >59 rate/1.73 sq M.predicted among non-blacks [Volume Rate/Area] in Serum, Plasma or Blood by Creatinine-based formula (CKD-EPI) (test code = 04736-8) Glomerular filtration 89 mL/min/1.73 >59 rate/1.73 sq M.predicted among blacks [Volume Rate/Area] in Serum, Plasma or Blood by Creatinine-based formula (CKD-EPI) (test code = 66004-1) Urea nitrogen/Creatinine [Mass 16 12-28 Ratio] in Serum or Plasma (test code = 3097-3) Sodium [Moles/volume] in Serum 140 mmol/L 134-144 or Plasma (test code = 2951-2) Potassium [Moles/volume] in 3.5 mmol/L 3.5-5.2 Serum or Plasma (test code = 2823-3) Chloride [Moles/volume] in 100 mmol/L 96-106 Serum or Plasma (test code = 5-0) Carbon dioxide, total 25 mmol/L 20-29 [Moles/volume] in Serum or Plasma (test code = 2027-9) Calcium [Mass/volume] in Serum 9.7 mg/dL 8.7-10.3 or Plasma (test code = 72003-2) Protein [Mass/volume] in Serum 7.4 g/dL 6.0-8.5 or Plasma (test code = 2885-2) Albumin [Mass/volume] in Serum 4.3 g/dL 3.7-4.7 or Plasma (test code = 1751-7) Globulin [Mass/volume] in 3.1 g/dL 1.5-4.5 Serum by calculation (test code = 62067-8) Albumin/Globulin [Mass Ratio] 1.4 1.2-2.2 in Serum or Plasma (test code = 1759-0) Bilirubin.total [Mass/volume] 0.4 mg/dL 0.0-1.2 in Serum or Plasma (test code = 1974-2) Alkaline phosphatase 84 IU/L 44-121 [Enzymatic activity/volume] in Serum or Plasma (test code = 6768-6) Aspartate aminotransferase 21 IU/L 0-40 [Enzymatic activity/volume] in Serum or Plasma (test code = 1920-8) Alanine aminotransferase 16 IU/L 0-32 [Enzymatic activity/volume] in Serum or Plasma (test code = 1742-6) [facility] Ref[facility] Culture [facility] - [id number] 00:00:00 Test Item Value Reference Range Interpretation Comments Specific gravity of Urine (test 1.021 1.005-1.030 code = 2965-2) pH of Urine by Test strip (test 6.0 5.0-7.5 code = 5803-2) Color of Urine (test code = yellow yellow 5778-6) Appearance of Urine (test code = clear clear 5767-9) Leukocyte esterase [Presence] in negative negative Urine by Test strip (test code = 5799-2) Protein [Presence] in Urine by negative negative/trace Test strip (test code = 09784-0) Glucose [Presence] in Urine (test negative negative code = 7389-9) Ketones [Presence] in Urine by negative negative Test strip (test code = 2514-8) Hemoglobin [Presence] in Urine by negative negative Test strip (test code = 5794-3) Bilirubin.total [Presence] in negative negative Urine by Test strip (test code = 5770-3) Urobilinogen [Mass/volume] in 0.2 mg/dL 0.2-1.0 Urine by Test strip (test code = 22735-6) Nitrite [Presence] in Urine by negative negative Test strip (test code = 5802-4) Microscopic observation see below: [Identifier] in Urine sediment by Light microscopy (test code = 58680-8) Leukocytes [#/area] in Urine none seen 0-5 sediment by Microscopy high power field (test code = 5821-4) Erythrocytes [#/area] in Urine 0-2 0-2 sediment by Microscopy high power field (test code = 41677-9) Epithelial cells [#/area] in Urine none seen 0-10 sediment by Microscopy high power field (test code = 5787-7) Epithelial cells.renal [#/area] in rod pointer Urine sediment by Microscopy high power field (test code = 81693-7) Casts [Presence] in Urine sediment none seen none seen by Light microscopy (test code = 82469-1) Casts [Type] in Urine sediment by rod pointer Light microscopy (test code = 65426-3) Unidentified crystals [Presence] rod pointer in Urine sediment by Light microscopy (test code = 5783-6) Crystals [type] in Urine sediment rod pointer by Light microscopy (test code = 5782-8) Mucus [Presence] in Urine sediment rod pointer by Light microscopy (test code = 8247-9) Bacteria [#/area] in Urine none seen none seen/few sediment by Microscopy high power field (test code = 5769-5) Yeast [#/area] in Urine sediment rod pointer by Microscopy high power field (test code = 5822-2) Trichomonas vaginalis [Presence] rod pointer in Urine sediment by Light microscopy (test code = 5813-1) Urine sediment comments by Light rod pointer microscopy Narrative (test code = 00825-9) urinalysis reflex (test code = comment urinalysis reflex) [facility] 1995 panel - Serum or [id number] 00:00:00 Test Item Value Reference Range Interpretation Comments Cholesterol [Mass/volume] in Serum 161 mg/dL 100-199 or Plasma (test code = 2093-3) Triglyceride [Mass/volume] in Serum 118 mg/dL 0-149 or Plasma (test code = 2571-8) Cholesterol in HDL [Mass/volume] in 47 mg/dL >39 Serum or Plasma (test code = 2085-9) Cholesterol in VLDL [Mass/volume] 21 mg/dL 5-40 in Serum or Plasma by calculation (test code = 79326-5) Cholesterol in LDL [Mass/volume] in 93 mg/dL 0-99 Serum or Plasma by calculation (test code = 17784-7) Laboratory comment [Text] in Report rod pointer Narrative (test code = 23663-1) [facility] CenterFolate+Cyanocobalamin [Interpretation] in Serum or [id number] 00:00:00 Test Item Value Reference Range Interpretation Comments Cobalamin (Vitamin B12) >2000 232-1245 H [Mass/volume] in Serum or Plasma (test code = 2132-9) Folate [Mass/volume] in Serum or 19.7 NG/mL >3.0 Plasma (test code = 2284-8) [facility]25-Hydroxy[facility]amin D3+25-Hydroxyvitamin D2 [Mass/volume] in Serum or [id number] 00:00:00 Test Item Value Reference Range Interpretation Comments 25-Hydroxyvitamin 71.4 NG/mL 30.0-100.0 D3+25-Hydroxyvitamin D2 [Mass/volume] in Serum or Plasma (test code = 73786-5) [facility] W Auto Differential panel - [id number] 00:00:00 Test Item Value Reference Range Interpretation Comments Leukocytes [#/volume] in Blood 8.5 x10e3/uL 3.4-10.8 by Automated count (test code = 6690-2) Erythrocytes [#/volume] in 4.22 x10e6/uL 3.77-5.28 Blood by Automated count (test code = 789-8) Hemoglobin [Mass/volume] in 11.4 g/dL 11.1-15.9 Blood (test code = 718-7) Hematocrit [Volume Fraction] of 34.3 % 34.0-46.6 Blood by Automated count (test code = 4544-3) Erythrocyte mean corpuscular 81 fL 79-97 volume [Entitic volume] by Automated count (test code = 787-2) Erythrocyte mean corpuscular 27.0 pg 26.6-33.0 hemoglobin [Entitic mass] by Automated count (test code = 785-6) Erythrocyte mean corpuscular 33.2 g/dL 31.5-35.7 hemoglobin concentration [Mass/volume] by Automated count (test code = 786-4) Erythrocyte distribution width 13.4 % 11.7-15.4 [Ratio] by Automated count (test code = 788-0) Platelets [#/volume] in Blood 367 x10e3/uL 150-450 by Automated count (test code = 777-3) Neutrophils/100 leukocytes in 55 % not estab. Blood by Automated count (test code = 770-8) Lymphocytes/100 leukocytes in 37 % not estab. Blood by Automated count (test code = 736-9) Monocytes/100 leukocytes in 5 % not estab. Blood by Automated count (test code = 5905-5) Eosinophils/100 leukocytes in 1 % not estab. Blood by Automated count (test code = 713-8) Basophils/100 leukocytes in 1 % not estab. Blood by Automated count (test code = 706-2) immature cells (test code = rod pointer immature cells) Neutrophils [#/volume] in Blood 4.7 x10e3/uL 1.4-7.0 by Automated count (test code = 751-8) Lymphocytes [#/volume] in Blood 3.2 x10e3/uL 0.7-3.1 H by Automated count (test code = 731-0) Monocytes [#/volume] in Blood 0.5 x10e3/uL 0.1-0.9 by Automated count (test code = 742-7) Eosinophils [#/volume] in Blood 0.1 x10e3/uL 0.0-0.4 by Automated count (test code = 711-2) Basophils [#/volume] in Blood 0.1 x10e3/uL 0.0-0.2 by Automated count (test code = 704-7) Immature granulocytes/100 1 % not estab. leukocytes in Blood by Automated count (test code = 10350-8) Immature granulocytes 0.0 x10e3/uL 0.0-0.1 [#/volume] in Blood by Automated count (test code = 70991-3) Nucleated erythrocytes/100 rod pointer leukocytes [Ratio] in Blood by Automated count (test code = 07234-4) Morphology [Interpretation] in rod pointer Blood Narrative (test code = 32873-6) [facility] CenterPT [facility] - Platelet poor plasma by Coagulation [id number] 00:00:00 Test Item Value Reference Range Interpretation Comments INR in Platelet poor plasma by 1.0 0.9-1.2 Coagulation assay (test code = 6301-6) Prothrombin time (PT) (test code = 10.4 sec 9.1-12.0 5902-2) aPTT in Platelet poor plasma by 24 sec 24-33 Coagulation assay (test code = 18551-1) [facility] Center[facility] 1996 panel - Serum or [id number] 00:00:00 Test Item Value Reference Range Interpretation Comments Cholesterol [Mass/volume] in Serum 226 mg/dL 100-199 H or Plasma (test code = 2093-3) Triglyceride [Mass/volume] in Serum 131 mg/dL 0-149 or Plasma (test code = 2571-8) Cholesterol in HDL [Mass/volume] in 58 mg/dL >39 Serum or Plasma (test code = 2085-9) Cholesterol in VLDL [Mass/volume] 23 mg/dL 5-40 in Serum or Plasma by calculation (test code = 92258-9) Cholesterol in LDL [Mass/volume] in 145 mg/dL 0-99 H Serum or Plasma by calculation (test code = 86623-0) Laboratory comment [Text] in Report rod pointer Narrative (test code = 40331-9) [facility] Centerthy[facility], [id number] 00:00:00 Test Item Value Reference Range Interpretation Comments Thyrotropin [Units/volume] in 0.176 uIU/mL 0.450-4.500 L Serum or Plasma by Detection limit <= 0.005 mIU/L (test code = 50713-3) Thyroxine (T4) [Mass/volume] in 7.2 ug/dL 4.5-12.0 Serum or Plasma (test code = 3026-2) [facility]25-Hydroxy[facility] D3+25-Hydroxyvitamin D2 [Mass/volume] in Serum or [id number] 00:00:00 Test Item Value Reference Range Interpretation Comments 25-Hydroxyvitamin 60.7 NG/mL 30.0-100.0 D3+25-Hydroxyvitamin D2 [Mass/volume] in Serum or Plasma (test code = 06372-6) [facility] CenterMR K[facility]EE LEFT WO [id number] 14:58:54 HISTORY: Persistent chronic pain in the left knee. TECHNIQUE: MR imaging of the left knee was done in multiple projectionsusing 1.5T MR unit and standard protocol. FINDINGS: BONE AND JOINT: Small knee joint effusion and an irregular multilocularshaped 5 x 1 x 3 cm Moncada's cyst noted. Small amount of fluid is seen inthe popliteal bursa. 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 MENISCI: Lateral meniscus is intact. Medial meniscus, however, showedlarge, linear, nondisplaced tears involving the body portion extending intothe posterior horn. LIGAMENTSAND TENDONS: The patellar tendon, quadriceps complex, cruciateligaments and collateral ligaments areintact. Proximal tendon of the medial gastrocnemius tendon and proximal smallportion of lateral collateral ligament are slightly swollen. CONCLUSIONS:1. 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 Complex, predominantly linear, horizontal displacedtears in the body ofthe medial meniscus, extending into posterior horn.[facility], Radiant Results Inft User - 02/14/2020 9:00 AM CSTHISTORY: Persistent chronic pain in the left knee.TECHNIQUE: MR imaging ofthe left knee was done in multiple projectionsusing 1.5T MR unit and standard protocol.FINDINGS: BONE AND JOINT: Small knee joint effusion and an irregular multilocularshaped 5 x 1 x 3 cm Moncada's cyst noted. Small amount of fluid is seen inthe popliteal bursa.Grade III\\grade IV chondromalacia detectedin the medial patellar facetand apex of the [...] the medial knee joint.2. Complex, predominantly linear, h orizontal displaced tears in the body ofthe medial meniscus, extending into posterior horn.[facility] VW [id number] 19:41:38 1. ?No fracture. RL: 1105 HISTORY: ?left knee pain COMPARISON: ?None. FINDINGS: 3 views of the left knee demonstrate normal alignment. ?No fracture,foreign body, or focal osseous lesion is identified. Mild degenerative changes are present. There is medial compartmentnarrowing. Osteophyte formation seen in the patellofemoral compartment. [facility], Radiant Results Inft User - 01/22/2020 2:42 PM CDTHISTORY: left knee pain COMPARISON: None.FINDINGS:3 views of the left knee demonstrate normal alignment. No fracture,foreign body, or focal osseous lesion is identified.Mild degenerative changes are present. There is medial compartmentnarrowing. Osteophyte formation seen in the patellofemoral compartment.IMPRESSION1. No fracture.RL: [facility]5 [facility]
[2022-04-14] MEDS ORDERED: ASPIRIN 81 MG CHEWABLE TABLET ONE (16:57)
[2022-04-14] MEDS ORDERED: NITROGLYCERIN 0.4 MG/TAB SL ONE (16:57)
[2022-04-14 17:03] LABS: Absolute Lymphocytes (CBC) 3.8 K/uL (0.7-4.9); Hematocrit 36.8 % (36.0-45.0); Lymphocytes % 31.4 % (15.3-44.8); MCV 80.2 fL (80-100); MPV 7.1 fL (7.6-11.3); RBC Red Blood Cell Count 4.59 M/uL (3.86-4.86)
[2022-04-14] MEDS ORDERED: ONDANSETRON 4 MG/2 ML VIAL ONE (17:08)
[2022-04-14 17:20] LABS: Potassium 3.9 mmol/L (3.5-5.1); Troponin High Sensitivity 14.1 pg/mL (<58.9)
--- NOTE | 2022-04-14 18:07 | RAD REPORT ---
EXAM DESCRIPTION: RAD - Chest Single View - 04/14/2022 5:43 pm CLINICAL HISTORY: CHEST PAIN COMPARISON: Chest Single View dated 01/06/2022; Chest Single View dated 03/05/2021; Chest Single View dated 06/21/2020; Chest Abd Pelvis Wo Con dated 01/06/2022; BX ABD/RETRO PERC/US GUIDE dated FINDINGS: Lines: None. Lungs: Consolidative airspace disease in the right lower lobe. Pleural: Moderate right pleural effusion. Cardiac: Similar size and configuration. Mediastinum: Within normal limits. Bones: No acute fractures. Other: None IMPRESSION: Moderate right pleural effusion with underlying atelectasis and/or consolidation. The le ft lung is clear.
--- NOTE | 2022-04-14 18:39 | ER ---
Nurse's Notes [facility] Name: Chanel Martinez Age: 76 yrs Sex: Female : 1945 Arrival Date: 04/14/2022 Time: 16:33 Bed 3 Private MD: Diagnosis: Pleural effusion, not elsewhere classified Presentation: 04/14 16:46 Chief complaint: Patient states: Midsternal CP, radiates to right side of chest x 3 jl7 days, N/V started today. Started Macrobid on 04/09/22 for UTI. Coronavirus screen: Vaccine status: Patient reports being unvaccinated. At this time, the client does not indicate any symptoms associated with coronavirus-19. Ebola Screen: No symptoms or risks identified at this time. Initial Sepsis Screen: Does the patient meet any 2 criteria? No. Patient's initial sepsis screen is negative. Does the patient have a suspected source of infection? No. Patient's initial sepsis screen is negative. Risk Assessment: Do you want to hurt yourself or someone else? Patient reports no desire to harm self or others. Onset of symptoms was April 11, 2022. 16:46 Method Of Arrival: Ambulatory jl7 16:46 Acuity: RYAN 2 jl7 Triage Assessment: 16:47 General: Appears in no apparent distress. uncomfortable, Behavior is cooperative, jl7 appropriate for age, anxious. Pain: Complains of pain in xiphoid area and mid-sternal area Pain radiates to right breast Pain currently is 7 out of 10 on a pain scale. Cardiovascular: Patient's skin is warm and dry. Historical: - Allergies: 16:47 Augmentin; jl7 16:47 PENICILLINS; jl7 - Home Meds: 16:47 diltiazem HCl 180 mg oral Tb24 [Active]; losartan 100 mg oral tab [Active]; jl7 - PMHx: 16:47 GERD; Hypertension; Hypothyroidism; Tachycardia; jl7 - Immunization history:: Client reports having NOT received the Covid vaccine. - Social history:: Smoking status: Patient denies any tobacco usage or history of. - Family history:: not pertinent. Screenin:58 [facility] ED Fall Risk Assessment (Adult) History of falling in the last 3 months, ld1 including since admission No falls in past 3 months (0 pts). Abuse screen: Denies threats or abuse. Denies injuries from another. Nutritional screening: No deficits noted. Tuberculosis screening: No symptoms or risk factors identified. Assessment: 16:58 General: Appears in no apparent distress. comfortable, Behavior is calm, cooperative, ld1 appropriate for age. Pain: Complains of pain in chest and right breast and mid-sternal area and xiphoid area Pain does not radiate. Pain currently is 8 out of 10 on a pain scale. Quality of pain is described as throbbing, Pain began suddenly. Neuro: Level of Consciousness is awake, alert, obeys commands, Oriented to person, place, time, situation. Cardiovascular: Capillary refill < 3 seconds Patient's skin is warm and dry. Rhythm is sinus rhythm Chest pain is described as mild. Respiratory: Airway is patent Respiratory effort is even, unlabored. GI: Abdomen is flat, non-distended. : No signs and/or symptoms were reported regarding the genitourinary system. EENT: No signs and/or symptoms were reported regarding the EENT system. Derm: No signs and/or symptoms reported regarding the dermatologic system. Musculoskeletal: No signs and/or symptoms reported regarding the musculoskeletal system. 17:03 Reassessment: After 1st dose of Nitro - pt reports increase in chest pain level 9/10. ld1 Nausea/Vomiting at this time. Notified ERP. See MAR for orders. 18:06 Reassessment: Patient appears in no apparent distress at this time. Patient and/or ld1 family updated on plan of care and expected duration. Pain level reassessed. Reporting nausea is decreased - "Touch of a headache still." "Chest pain is very little." Patient denies pain at this time. Patient states feeling better. Vital Signs: 16:46 BP 196 / 97; Pulse 94; Resp 17; Temp 97.9; Pulse Ox 98% ; Pain 7/10; jl7 16:56 Weight 62 kg (M); Height 5 ft. 3 in. (160.02 cm) (R); jl7 16:58 BP 196 / 97; Pulse 98; Resp 20; Pulse Ox 97% on R/A; Pain 4/10; ld1 17:03 Pain 9/10; ld1 18:06 BP 156 / 74; Pulse 78; Resp 18; Pulse Ox 98% on R/A; Pain 0/10; ld1 16:56 Body Mass Index 24.21 (62.00 kg, 160.02 cm) jl7 ED Course: 16:33 Patient arrived in ED. rg4 16:35 Victorino Chavez MD is Attending Physician. rt 16:44 Юлия Cobb, RN is Primary Nurse. ld1 16:47 Triage completed. jl7 16:47 Arm band placed on right wrist. jl7 16:57 EKG done, by ED staff. bc6 16:57 No provider procedures requiring assistance completed. Inserted saline lock: 20 gauge ld1 in left antecubital area, using aseptic technique. Blood collected. 16:58 Patient has correct armband on for positive identification. Placed in gown. Bed in low ld1 position. Call light in reach. Side rails up X2. case monitor on. Pulse ox on. NIBP on. Door closed. Noise minimized. Warm blanket given. 16:58 Patient maintains SpO2 saturation greater than 95% on room air. ld1 17:45 XRAY Chest (1 view) In Process Unspecified. EDMS 18:57 IV discontinued, intact, bleeding controlled, No redness/swelling at site. Pressure kr3 dressing applied. Administered Medications: 16:58 Drug: Aspirin Chewable Tablet 324 mg Route: PO; ld1 17:09 Follow up: Response: No adverse reaction ld1 16:58 Drug: Nitroglycerin 0.4 mg Route: Sublingual; ld1 17:04 Drug: Nitroglycerin 0.4 mg Route: Sublingual; kr3 17:07 Follow up: Response: Pain is increased; Notified ERP after 1st dose of nitro. Pt ld1 reports increase in pain. 12/06 17:25 Follow up: Response: No adverse reaction; Pain is decreased ld1 17:08 Drug: Zofran (Ondansetron) 4 mg Route: IVP; Site: left antecubital; ld1 17:30 Follow up: Response: No adverse reaction; Nausea is decreased ld1 Medication: 16:58 VIS not applicable for this client. ld1 Intake: Outcome: 18:39 Discharge ordered by . rt 18:57 Patient left the ED. kr3 20:32 Discharged to home via wheelchair. kr3 20:32 Condition: stable 20:32 Discharge instructions given to patient, family, Instructed on discharge instructions, follow up and referral plans. Demonstrated understanding of instructions, follow-up care, medications, Prescriptions given X 2. Signatures: Dispatcher [employer] Josephine Alcantar rg4 Alejandrina Burgos, RN RN jl7 Юлия Cobb RN RN ld1 Joi Ochoa RN RN kr3 Victorino Chavez MD MD rt Nelida Rubin 6
--- NOTE | 2022-04-14 18:39 | EDPHYS ---
Physician Documentation [facility] Name: Chanel Martinez Age: 76 yrs Sex: Female : 1945 Arrival Date: 04/14/2022 Time: 16:33 Bed 3 Private MD: ED Physician Victorino Chavez HPI: 04/14 17:44 This 76 yrs old Female presents to ER via Ambulatory with complaints of Chest Pain. rt 17:44 The patient or guardian reports chest pain that is located primarily in the substernal rt area. Onset: this morning. The pain radiates to anterior aspect of right upper chest. Associated signs and symptoms: Pertinent positives: nausea, vomiting. The chest pain is described as aching. Modifying factors: The symptoms are alleviated by nothing. the symptoms are aggravated by nothing. Severity of pain: At its worst the pain was moderate. Patient presents to the ED with a right sided and substernal chest pain, aching nature starting this morning. Patient has had pleural effusions before, she states that this is a different type of pain. She has nausea when she takes her pills. The patient states that she has been vomiting her pills. She reports that her blood pressure has been high, she has been able to take her blood pressure medications. Patient denies other acute complaints at this time, symptoms are moderate in severity, no other aggravating alleviating factors.. Historical: - Allergies: 16:47 Augmentin; jl7 16:47 PENICILLINS; jl7 - Home Meds: 16:47 diltiazem HCl 180 mg oral Tb24 [Active]; losartan 100 mg oral tab [Active]; jl7 - PMHx: 16:47 GERD; Hypertension; Hypothyroidism; Tachycardia; jl7 - Immunization history:: Client reports having NOT received the Covid vaccine. - Social history:: Smoking status: Patient denies any tobacco usage or history of. - Family history:: not pertinent. ROS: 17:44 Constitutional: Negative for fever, chills, and weight loss, Eyes: Negative for injury, rt pain, redness, and discharge, ENT: Negative for injury, pain, and discharge, Respiratory: Negative for shortness of breath, cough, wheezing, and pleuritic chest pain, MS/Extremity: Negative for injury and deformity, Skin: Negative for injury, rash, and discoloration, Neuro: Negative for headache, weakness, numbness, tingling, and seizure, Psych: Negative for depression, anxiety, suicide ideation, homicidal ideation, and hallucinations. 17:44 Cardiovascular: Positive for chest pain, Negative for edema. 17:44 Abdomen/GI: Positive for nausea and vomiting, Negative for abdominal pain. Exam: 17:44 Constitutional: This is a well developed, well nourished patient who is awake, alert, rt and in no acute distress. Head/Face: Normocephalic, atraumatic. Eyes: Pupils equal round and reactive to light, extra-ocular motions intact. Lids and lashes normal. Conjunctiva and sclera are non-icteric and not injected. Cornea within normal limits. Periorbital areas with no swelling, redness, or edema. Neck: Trachea midline, no thyromegaly or masses palpated, and no cervical lymphadenopathy. Supple, full range of motion without nuchal rigidity, or vertebral point tenderness. No Meningismus. Chest/axilla: Normal chest wall appearance and motion. Nontender with no deformity. No lesions are appreciated. Cardiovascular: Regular rate and rhythm with a normal S1 and S2. No gallops, murmurs, or rubs. Normal PMI, no JVD. No pulse deficits. Respiratory: Lungs have equal breath sounds bilaterally, clear to auscultation and percussion. No rales, rhonchi or wheezes noted. No increased work of breathing, no retractions or nasal flaring. Abdomen/GI: Soft, non-tender, with normal bowel sounds. No distension or tympany. No guarding or rebound. No evidence of tenderness throughout. Skin: Warm, dry with normal turgor. Normal color with no rashes, no lesions, and no evidence of cellulitis. MS/ Extremity: Pulses equal, no cyanosis. Neurovascular intact. Full, normal range of motion. Neuro: Awake and alert, GCS 15, oriented to person, place, time, and situation. Cranial nerves II-XII grossly intact. Motor strength 5/5 in all extremities. Sensory grossly intact. Cerebellar exam normal. Normal gait. Psych: Awake, alert, with orientation to person, place and time. Behavior, mood, and affect are within normal limits. 17:44 ECG was reviewed by the Attending Physician. Vital Signs: 16:46 BP 196 / 97; Pulse 94; Resp 17; Temp 97.9; Pulse Ox 98% ; Pain 7/10; jl7 16:56 Weight 62 kg (M); Height 5 ft. 3 in. (160.02 cm) (R); jl7 16:58 BP 196 / 97; Pulse 98; Resp 20; Pulse Ox 97% on R/A; Pain 4/10; ld1 17:03 Pain 9/10; ld1 18:06 BP 156 / 74; Pulse 78; Resp 18; Pulse Ox 98% on R/A; Pain 0/10; ld1 16:56 Body Mass Index 24.21 (62.00 kg, 160.02 cm) jl7 MDM: 16:52 Patient medically screened. rt 18:46 Differential diagnosis: Pleural effusion, congestive heart failure, pleural effusion. rt Pneumonia. HEART Score: History: Slightly Suspicious (0), ECG: Non specific repolarization disturbance / LBTB / PM (1), Age: > or = 65 years (2), Risk Factors: 1 or 2 risk factors (1), Troponin: < or = 1 x Normal Limit (0), Total Score = 4. Data reviewed: vital signs, nurses notes, old medical records, lab test result(s), EKG, radiologic studies. Historians other than the Patient: Daughter/Son: Discussed past medical history, plan of care. External Records Reviewed: Inpatient record: Reviewed x-rays, pleural effusion is smaller today compared to prior imaging, creatinine has improved, electrolytes unremarkable, BNP is elevated but still less than when she was transferred.. Outpatient radiology: Reviewed imaging, pleural effusion is smaller today compared to prior imaging. Care significantly affected by the following chronic conditions: Hypertension. Response to treatment: the patient's symptoms have markedly improved after treatment. ED course: Patient presents to the ED with chest pain on the right side, she is found to have recurrence of her pleural effusion. The patient has an elevated BNP but significantly better compared to prior exams. Patient with nausea, improved and Zofran, she states the chest pain has resolved in the ED. I discussed these results at length with the patient and her daughter. Offered the patient admission here or transfer to [facility] for continuity of care. 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 She has stable vital signs, believe this is reasonable course of action at this time. We will start patient on low-dose diuretics. Will prescribe patient nausea medications. The patient believes that she may be able to get close outpatient follow-up. The patient will return to the ER for any worsening symptoms or if she changes her mind regarding admission or transfer.. 04/14 16:51 Order name: Basic Metabolic Panel; Complete Time: 17:25 04/14 16:51 Order name: CBC with Diff; Complete Time: 17:25 04/14 16:51 Order name: Troponin HS; Complete Time: 17:25 04/14 16:51 Order name: XRAY Chest (1 view); Complete Time: 18:11 04/14 16:52 Order name: Lipase; Complete Time: 17:25 04/14 17:26 Order name: BNP; Complete Time: 17:56 rt 04/14 16:51 Order name: EKG; Complete Time: 16:51 04/14 16:51 Order name: Cardiac monitoring; Complete Time: 16:52 04/14 16:51 Order name: EKG - Nurse/Tech; Complete Time: 16:57 04/14 16:51 Order name: IV Saline Lock; Complete Time: 16:57 04/14 16:51 Order name: Labs collected and sent; Complete Time: 16:57 04/14 16:51 Order name: O2 Per Protocol; Complete Time: 16:51 04/14 16:51 Order name: O2 Sat Monitoring; Complete Time: 16:51 ld1 EC:44 Rate is 85 beats/min. Rhythm is regular, Normal Sinus Rhythm with No ectopy. Left axis rt deviation noted. PA interval is normal. QRS interval is normal. QT interval is normal. Clinical impression: NSR w/ Non-specific ST/T Changes. Administered Medications: 16:58 Drug: Aspirin Chewable Tablet 324 mg Route: PO; ld1 17:09 Follow up: Response: No adverse reaction ld1 16:58 Drug: Nitroglycerin 0.4 mg Route: Sublingual; ld1 17:04 Drug: Nitroglycerin 0.4 mg Route: Sublingual; kr3 17:07 Follow up: Response: Pain is increased; Notified ERP after 1st dose of nitro. Pt ld1 reports increase in pain. 12/06 17:25 Follow up: Response: No adverse reaction; Pain is decreased ld1 17:08 Drug: Zofran (Ondansetron) 4 mg Route: IVP; Site: left antecubital; ld1 17:30 Follow up: Response: No adverse reaction; Nausea is decreased ld1 Disposition Summary: 04/14/22 18:39 Discharge Ordered Location: Home rt Problem: an ongoing problem rt Symptoms: have improved rt Condition: Stable rt Diagnosis - Pleural effusion, not elsewhere classified rt Followup: rt - With: Private Physician - When: 2 - 3 days - Reason: Discharge Instructions: - Discharge Summary Sheet rt - Pleural Effusion rt Forms: - Medication Reconciliation Form rt - Thank You Letter rt - Antibiotic Education rt - Prescription Opioid Use rt Prescriptions: - Lasix 20 mg Oral Tablet - take 1 tablet by ORAL route once daily; 5 tablet; Refills: 0, Product Selection rt Permitted - ondansetron 4 mg Oral - take 4 milligrams by SUBLINGUAL route every 8 hours; 30 tablet; Refills: 0, rt Product Selection Permitted Signatures: Dispatcher [employer] Alejandrina Santana RN RN jl7 Юлия Cobb RN RN ld1 Joi Ochoa RN RN kr3 Victorino Chavez MD MD rt
[2022-04-14 19:10] VITALS: TEMP 97.9
[2022-04-14 19:23] VITALS: BP 156/74; O2SAT 98
== END 2022-04-14 18:57 | disposition home or self-care (01) ==
LOC: ER 16:32
DX: J90 Pleural effusion, not elsewhere classified (principal); R11.2 Nausea with vomiting, unspecified; I10 Essential (primary) hypertension; Z88.1 Allergy status to other antibiotic agents; Z88.0 Allergy status to penicillin
CPT/HCPCS: 85025; 80048; 36415; 84484; 83690; 83880; 71045; J2405

== ENCOUNTER 2022-11-08 06:10 | Emergency (ER) | payer OTHER ==
--- OUTSIDE RECORDS SUMMARY | 2022-11-08 06:31 | XMS REPORT | Continuity of Care Document ---
:1945 Author Organization [facility] t Address [address] [place] [address] [address] [place] [address] Care Team Providers Name Role Phone Delaney LEONARD, Valeria Bronson Primary Care Physician CECIL DELACRUZ Attending Clinician Unavailable [email or web address] Attending Clinician Unavailable DELANEY_Rommel Attending Clinician Unavailable Higinio Miguel MD Attending Clinician Merly Thompson MD Attending Clinician Karina LEONARD, [facility] Attending Clinician Kiya Crane MD Attending Clinician KIYA CRANE Attending Clinician Unavailable Laron Negrete MD Attending Clinician Ben Duncan Attending Clinician Unavailable Eliseo LEONARD, Sloan Lobato Attending Clinician [phone] Jignesh AMEZQUITA, Jr. Moraes Attending Clinician Unavailable Darrell AMEZQUITA, Mikki Attending Clinician Unavailable Ligia Huizar MD Attending Clinician Nick Torres DO Attending Clinician NICK TORRES Attending Clinician Unavailable Anthony LEONARD, Robert Attending Clinician Nasima LEONARD, Cecil Perdomo Attending Clinician [phone] Promise AMEZQUITA, Destinee Attending Clinician Unavailable Eli Flores Attending Clinician Pilar LYONS, Jennifer Attending Clinician Unavailable Lelia Scott MA Attending Clinician Unavailable Hernandez LEONARD, Curtis Hicks Attending Clinician Henrry LEONARD, Jessy Cuenca Attending Clinician [phone] Akosua Young Attending Clinician Valeria Escobar Attending Clinician [phone] Matilda Boyce Attending Clinician Unavailable Jeevan AMEZQUITA, Lisa Attending Clinician Unavailable Roldan LEONARD, Jayda Alexis Attending Clinician Jan AMEZQUITA, Surinder Attending Clinician Unavailable Leny Attending Clinician Unavailable Jayda Louis MA Attending Clinician Unavailable ARGELIA FERNANDEZ Attending Clinician Unavailable Elsie Burgos MA Attending Clinician Unavailable Warren Reagan Attending Clinician [phone] Precious Fox MD Attending Clinician PRECIOUS FOX Attending Clinician Unavailable Doctor Unassigned, Fobes Hill Attending Clinician Unavailable kejackie_a Attending Clinician Unavailable CECIL DELACRUZ Admitting Clinician Unavailable [email or web address] Admitting Clinician Unavailable KEFFER_A Admitting Clinician Unavailable MERLY THOMPSON Admitting Clinician Unavailable LIGIA HUIZAR Admitting Clinician Unavailable CURTIS PABON Admitting Clinician Unavailable Leny Admitting Clinician Unavailable keffer_a Admitting Clinician Unavailable Payers Payer Name Policy Type Policy Number Effective Date Expiration Date S epi [employer] MEDICARE ADV [id number] 2020 00:00:00 [employer] (MEDICARE [id number] REPLACEMENT/ADVANTA GE - PPO) AAR MEDICARE [id number] 2016 2020 COMPLETE 00:00:00 00:00:00 FORMERLY [facility] - [id number] MEDICARE SOLUTIONS - MEDICARE COMPLETE (MEDICARE REPLACEMENT PPO) Problems Condition Condition Condition Status Onset Resolution Last Treating Co mments Source Name Details Category Date Date Treatment Clinician Date Cystocele Cystocele Problem Active [facility] 10-14 Communi 00:00: ty 00 [facility] Pain of Pain of Problem Active [place] left Left 10-14 Communi shoulder Shoulder 00:00: ty joint Joint 00 [facility] Influenza Influenza Problem Active [facility] due to Due to 10-14 Communi Influenza Influenza 00:00: ty A virus a Virus 00 [facility] Loss of Loss of Problem Active [place] hair Hair 06-04 Communi 00:00: ty 00 [facility] Bursitis Bursitis Problem Active [place] of of 06-04 Communi olecranon Olecranon 00:00: ty of left of Left 00 [facility] elbow Elbow [facility] Altered Altered Problem Active [place] mental Mental 104 Communi status Status 00:00: ty 00 [facility] Empyema Empyema Problem Active 2021-03 [facility] 109 Communi 00:00: ty 00 [facility] Acute Acute Problem Active 2021-03 [facility] urinary Urinary 04-06 Communi tract Tract 00:00: ty infection Infection 00 [facility] abhinav [facility] Colon Colon Disease Active Overview: [facility] g of this H ospita 00 note l might be different from the original. Added automatic ally from request for surgery [id number] Pain of Pain of Disease Active Methodi [...] Sween y 5-10 Communi 00:00: ty 00 [facility] Left upper Left Upper Problem Active S [facility] quadrant Quadrant 3-29 Commun i pain Pain 00:00: ty 00 [facility] Iron Iron Problem Active [place] deficiency Deficiency 3-08 Co mmuni 00:00: ty 00 [facility] Anemia Anemia Problem Active [place] 3-08 Communi 00:00: ty 00 [facility] Disorder Disorder Problem Active [place] thyroid of Thyroid 3-07 da gland G[facility] Hyperchole Hyperchole Problem Active M at[facility]or sterolemia sterolemia 3-07 da 00:[facility]: [facility] Hypertensi Hypertensi Problem Active M [place] ve ve 3-07 da disorder Disorder 00:00: [facility] Gastro-ome Gastro-ome Problem Active S [facility] ntal ntal 1-12 Communi lymphadeno Lymphadeno 00:00: ty margarito margarito 00 [facility] Right Right Problem Active [place] upper Upper 1-12 Communi quadrant Quadrant 00:00: ty pain Pain 00 [facility] Malaise Malaise Problem Active 2020-03 [place] 2-21 Communi 00:00: ty 00 [facility] Abdominal Abdominal Problem Active 2020-03 [facility] mass Mass 1-18 Communi 00:00: ty 00 [facility] Internal Internal Problem Active [place] hemorrhoid Hemorrhoid 7-01 Co mmuni s s 00:00: ty 00 [facility] Hematochez Hematochez Problem Active S [facility] ia ia 6-03 Communi 00:00: ty 00 [facility] Long-term Long-term Problem Active [facility] drug Drug 3-24 Communi therapy Therapy 00:00: ty 00 [facility] Vitamin D Vitamin D Problem Active [place] deficiency Deficiency 3-24 Co mmuni 00:00: ty 00 [facility] Hyperlipid Hyperlipid Problem Active S shekhar emia emia 3-24 Communi 00:00: ty 00 [facility] Shoulder Shoulder Problem Active [place] joint pain Joint Pain 3-24 Co mmuni 00:00: ty 00 [facility] Clinics Headache Headache Problem Active [place] 3-24 Communi 00:00: ty 00 [facility] Dizziness Dizziness Problem Active [facility] [place] 4-16 Communi 00:00: ty 00 [facility] Adult Adult Problem Active [facility] 9-20 Communi examinatio Examinatio 00:00: ty n n 00 [facility] Screening Screening Problem Active Swe [...] dism dism 5-10 Communi 00:00: ty 00 [facility] Essential Essential Problem Active [facility] hypertensi Hypertensi 5-10 Co mmuni on on 00:00: ty 00 [facility] Indigestio Indigestio Problem Active S [facility]y n n 5-10 Communi 00:00: ty 00 [facility] Diverticul Diverticul Problem Active S [facility] itis itis 5-10 Communi 00:00: ty 00 [facility] Pleural Pleural Disease Resolve 2021-032022-03-07 2022-03-[address] effusion, effusion, d 2-04 00:00:00 19:47:29 [facility] right right 00:00: Medical 00 Center Pleural Pleural Disease Resolve 2021-032022-03-07 2022-03-[address] [facility] effusion effusion d 0-21 00:00:00 19:47:32 [facility] 00:00: Medical 00 Center Allergies, Adverse [...] ate reaction 00 l s to drug PENICILL Drug Active Anaphylaxis 2017-0 Uni vers INS Class 8 ity of 00:00: [place] 00 [facility] Penicill Propensi Active Anaphylaxis 2017-0 U nivers ins ty to 8 ity of adverse 00:00: [place] reaction 00 Medical s Branch Penicill Propensi Active Anaphylaxis 2014-0 M ethodi ins ty to 11-23 st adverse 00:00: Hospita reaction 00 l s to drug NO KNOWN Allergy Active [facility] S Augmenti Allergy [place] [facility] PENICILL Allergy Active [place] [facility] Family [facility] Family Member Diagnosis Comments Start Date Stop Date Source Natural mother Hypertension [facility] Natural mother Diabetes [facility] Natural father [facility] Natural sister Diabetes [facility] Natural son Crohn's disease [facility] Social History Social Habit Start Date Stop Date Quantity Comments Source History SDOH [facility] Alcohol Std Drinks Medica l Center History SDOH [facility] Alcohol Binge Medical Vivienne [facility] History SDDE [facility] Alcohol Comment Medical C enter History SDOH [facility] Transport Non-Med Medical Center Gender identity [facility] Sexual orientation Method ist Hospital Exposure to 2022-02-20 2022-03-[address] [facility] SARS-CoV-2 (event) 00:00:00 03:12:00 Medica l Center History [facility] 2022-03-02 2022-03-[address] [facility] Transport Med 00:00:00 00:00:[address] History [facility] 2022-03-02 2022-03-[address] [facility] Housing Unable to 00:00:00 00:00:00 Medical Center Pay History [facility] 2022-03-02 2022-03-[address] [facility] Housing Places 00:00:00 00:00:00 Medical Ce nter Lived History [facility] 2022-03-02 2022-03-[address] [facility] Housing Homeless 00:00:00 00:00:00 Medical Center Last Year Alcohol intake 2022-02-16 2022-02-16 Lifetime [facility]ism 00:00:00 00:00:00 non-drinker Hospital (finding) History of Social 2022-02-16 2022-02-[address] function 00:00:00 00:00:00 Hospital Tobacco use and 2022-01-16 2022-01-[address] [facility] exposure 00:00:00 00:00:00 tobacco non-user Medical Center History SDOH 2022-01-16 2022-01-[address] [facility] Alcohol Frequency 00:00:00 00:00:00 Medical Center Sex [birth year] [facility] 00:00:00 00:00:00 Hospital Smoking Status Start Date Stop Date Source Never smoked tobacco [facility] Medications Ordered Filled Start Stop Current Ordering Indication Dosage Frequency Signature Comments Components Source Medication Medication Date Date Medication? Clinician (SIG) Name Name losartan losartan No losartan S [facility] 100 mg 100 mg 5-25 100 mg Communi tablet TAKE tablet TAKE 00:00: tablet ty ONE TABLET ONE TABLET 00 TAKE ONE Hospita BY MOUTH BY MOUTH TABLET BY l DAILY DAILY MOUTH Clinics DAILY losartan losartan No losartan S [place] 100 mg 100 mg 5-25 100 mg Communi tablet TAKE tablet TAKE 00:00: tablet ty ONE TABLET ONE TABLET 00 TAKE ONE Hospita BY MOUTH BY MOUTH TABLET BY l DAILY DAILY MOUTH Clinics DAILY levothyroxi 2021-03 Yes 25ug Take [address] [facility] 2-13 mcg by [facility] (SYNTHROID, 13:50: mouth Medic al LEVOTHROID) 07 Every Center 25 MCG morning on tablet an empty stomach. cholecalcif 2021-03 Yes [id number] Q7D Take [facility], 2-13 50,000 [facility] vitamin D3, 13:50: Units by Fl dical 1,250 mcg 07 mouth once Cent [...] tablet an empty stomach. cholecalcif 2021-03 Yes [id number] Q7D Take [facility], 2-13 50,000 [facility] vitamin D3, 13:50: Units by Me dical 1,250 mcg 07 mouth once Cent [...] tablet an empty stomach. cholecalcif 2021-03 Yes [id number] Q7D Take [facility], 2-13 50,000 [facility] vitamin D3, 13:50: Units by Me dical 1,250 mcg 07 mouth once Cent [...] tablet an empty stomach. cholecalcif 2021-03 Yes [id number] Q7D Take [facility], 2-13 50,000 [facility] vitamin D3, 13:50: Units by Me dical 1,250 mcg 07 mouth once Cent [...] minerals 13:50: mouth Medical tablet 07 daily. [place] levothyroxi 2021-03 Yes 25ug Take [address] ne 2-13 mcg by [facility] (SYNTHROID, 13:50: mouth Medic al LEVOTHROID) 07 Every Center 25 MCG morning on tablet an empty stomach. cholecalcif 2021-03 Yes [id number] Q7D Take [facility], 2-13 50,000 [facility] vitamin D3, 13:50: Units by Me dical 1,250 mcg 07 mouth once Cent [...] 13:50: mouth Medical tablet 07 daily. Center doxycycline 2021-03- No 100mg Q.5D Take [address] (MONODOX) 2-03-24 capsule [facility] 100 MG 00:00: 23:59 (100 mg Medical capsule 00 :00 total) by Center mouth 2 (two) times daily for 15 days. amoxicillin 2021-03- No 1{tbl} Q.5D Take [address] -clavulanat 2-03-24 tablet by Aura kes e 00:00: 23:59 mouth 2 Medical (AUGMENTIN) 00 :00 (two) Center 875-125 mg times per tablet daily for 15 days. doxycycline 2021-03- No 100mg Q.5D Take [address] (MONODOX) 2-03-24 capsule [facility] 100 MG 00:00: 23:59 (100 mg Medical capsule 00 :00 total) by Center mouth 2 (two) times daily for 15 days. amoxicillin 2021-03- No 1{tbl} Q.5D Take [address] -clavulanat 2-03-24 tablet by Aura kes e 00:00: 23:59 mouth 2 Medical (AUGMENTIN) 00 :00 (two) Center 875-125 mg times per tablet daily for 15 days. doxycycline 2021-03- No 100mg Q.5D Take [address] (MONODOX) -03-24 capsule [facility] 100 MG 00:00: 23:59 (100 mg Medical capsule 00 :00 total) by Center mouth 2 (two) times daily for 15 days. amoxicillin 2021-03- No 1{tbl} Q.5D Take [address] -clavulanat 2-03-24 tablet by Aura kes e 00:00: 23:59 mouth 2 Medical (AUGMENTIN) 00 :00 (two) Center 875-125 mg times per tablet daily for 15 days. doxycycline 2021-2021- No 100mg Q.5D Take [address] (MONODOX) 2-03-24 capsule [facility] 100 MG 00:00: 23:59 (100 mg Medical capsule 00 :00 total) by Center mouth 2 (two) times daily for 15 days. amoxicillin 2021-03- No 1{tbl} Q.5D Take [address] -clavulanat 2-03-24 tablet by Aura kes e 00:00: 23:59 mouth 2 Medical [...] [facility] -clavulanat 05-10 tablet by Aura kes e 00:00: 23:59 mouth 2 Medical (AUGMENTIN) 00 :00 (two) Center 875-125 mg times per tablet daily for 15 days. acetaminoph 2021-03- No 1000mg Take [address] en -03 09-22 tablets [facility] (TYLENOL) 00:00: 23:59 (1,000 mg [...] 50mg Take [address] (ULTRAM) 50 2- 12-22 tablet (50 L ukes mg tablet 00:00: 23:59 mg total) Me dical 00 :00 by mouth Center every 6 (six) hours as needed for up to 10 days. Max Daily Amount: 200 mg acetaminoph 2021-03- No 1000mg Take [address] en -03 09-22 tablets [facility] (TYLENOL) 00:00: 23:59 (1,000 mg Me dical 500 MG 00 :00 total) by Center tablet mouth every 8 (eight) hours for 10 days. traMADoL 2021-03- No 50mg Take [address] (ULTRAM) 50 05-10-22 tablet (50 L ukes mg tablet 00:00: 23:59 mg total) Me dical 00 :00 by mouth Center every 6 (six) hours as needed for up to 10 days. Max Daily Amount: 200 mg acetaminoph 2021-03- No 1000mg Take [address] en 05-1022 tablets [facility] (TYLENOL) 00:00: 23:59 (1,000 mg Me dical 500 MG 00 :00 total) by Center tablet mouth every 8 (eight) hours for 10 days. traMADoL 2021-03- No 50mg Take [address] (ULTRAM) 50 05-10-22 tablet (50 L ukes mg tablet 00:00: 23:59 mg total) Me dical 00 :00 by mouth Center every 6 (six) hours as needed for up to 10 days. Max Daily Amount: 200 mg acetaminoph 2021-03- No 1000mg Take [address] en 05-1022 tablets [facility] (TYLENOL) 00:00: 23:59 (1,000 mg Me dical 500 MG 00 :00 total) by Center tablet mouth every 8 (eight) hours for 10 days. traMADoL 2021-03- No 50mg Take [address] (ULTRAM) 50 05-10-22 tablet (50 L ukes mg tablet 00:00: 23:59 mg total) Me dical 00 :00 by mouth Center every 6 (six) hours as needed for up to 10 days. Max Daily Amount: 200 mg iron, 2021-03 Yes 65mg QD Take Methodi carbonyl, - 1.4444 st 45 mg 09:28: tablets Hospita tablet 36 (65 mg l total) by mouth daily. voriconazol 2021-03 Yes Q24H daily. Meth lucinda e (VFEND) 04-18 st 200 MG 09:28: Hospita tablet 36 l iron, 2021-03 Yes 65mg QD Take Methodi carbonyl, 04-[address] 45 mg 09:28: tablets Hospita tablet 36 (65 mg l total) by mouth daily. voriconazol 2021-03 Yes Q24H daily. Meth lucinda e (VFEND) 1-21 st 200 MG 09:28: Hospita tablet 36 l vibegron 2021-03 Yes QD daily. Methodi (Gemtesa) 1-21 st 75 mg 09:25: Hospita tablet 13 l potassium 2021-03 Yes 10meq Q.5D Take 1 Metho di chloride 1-21 tablet (10 st (K-DUR) 10 09:25: mEq total) H ospita MEQ CR 13 by mouth 2 l tablet (two) times a day. vit 2021-03 Yes Take by Methodi C/E/cuperic 1-[address] /zinc/lutei 09:25: Hospit a n 13 l (PRESERVISI ON LUTEIN ORAL) vibegron 2021-03 Yes QD daily. Methodi (Gemtesa) - st 75 mg 09:25: Hospita tablet 13 l potassium 2021-03 Yes 10meq Q.5D Take 1 Metho di chloride 1-21 tablet (10 st (K-DUR) 10 09:25: mEq total) H ospita MEQ CR 13 by mouth 2 l tablet (two) times a day. vit 2021-03 Yes Take by Methodi C/E/cuperic 1-[address] /zinc/lutei 09:25: Hospit a n 13 l (PRESERVISI ON LUTEIN ORAL) levothyroxi 2021-03- No 25ug Take [address] [facility] ne 0-30 -29 tablet (25 [facility] (SYNTHROID, 00:00: 23:59 mcg total) Medical LEVOTHROID) 00 :00 by mouth Cent er 25 MCG Every tablet morning on an empty stomach for 30 days. ferrous 2021-03 No 325mg QD Take [address] sulfate 325 0-30 -29 tablet [facility] (65 FE) MG 00:00: 23:59 [...] an empty stomach for 30 days. ferrous 2021-03 No 325mg QD Take [address] sulfate 325 0-30 11-29 tablet [facility] (65 FE) MG 00:00: 23:59 (325 mg Med ical tablet 00 :00 total) by Center mouth daily for 30 days. levothyroxi 2021-03 No 25ug Take [address] ne 0-30 11-29 tablet (25 [facility] (SYNTHROID, 00:00: 23:59 mcg total) Medical LEVOTHROID) 00 :00 by mouth Cent er 25 MCG Every tablet morning on an empty stomach for 30 days. ferrous 2021-03 No 325mg QD Take [address] sulfate 325 0-30 11-29 tablet [facility] (65 FE) MG 00:00: 23:59 (325 mg Med ical tablet 00 :00 total) by Center mouth daily for 30 days. dilTIAZem 2021-03 No 120mg QD Take [address] (CARDIZEM) 0-29 10-29 mg by [facility] 120 MG 14:30: 00:00 mouth Medical tablet 11 :00 daily. Center levothyroxi 2021-03- No 50ug Take [address] ne 0-29 10-29 mcg by [facility]ukes (SYNTHROID, 14:30: 00:00 mouth Medi ann LEVOTHROID) 11 :00 Every Center 50 MCG morning on tablet an empty stomach. losartan- 2021-03 No 1{tbl} QD Take [address] drochloroth 0-29 10-29 tablet by Aura godinez iajadae 14:30: 00:00 mouth Medical (HYZAAR) 11 :00 daily. Center 100-12.5 mg per tablet dilTIAZem 2021-03- No 120mg QD Take [address] (CARDIZEM) 0-29 10-29 mg by [facility] 120 MG 14:30: 00:00 mouth Medical tablet 11 :00 daily. [facility] levothyroxi 2021-03- No 50ug Take [address] ne 0-29 10-29 mcg by [facility] (SYNTHROID, 14:30: 00:00 mouth Medi ann LEVOTHROID) 11 :00 Every Center 50 MCG morning on tablet an empty stomach. losartan- 2021-03 No 1{tbl} QD Take [address] drochloroth 0-29 10-29 tablet by Aura godinez iazide 14:30: 00:00 mouth Medical (HYZAAR) 11 :00 daily. Center 100-12.5 mg per tablet dilTIAZem 2021-03 No 120mg QD Take [address] (CARDIZEM) 0-29 10-29 mg by [facility] 120 MG 14:30: 00:00 mouth Medical tablet 11 :00 daily. [facility] levothyroxi 2021-03- No 50ug Take [address] ne 0-29 10-29 mcg by [facility] (SYNTHROID, 14:30: 00:00 mouth Medi ann LEVOTHROID) 11 :00 Every Center 50 MCG morning on tablet an empty stomach. losartan- 2021-03 No 1{tbl} QD Take [address] drochloroth 0-29 10-29 tablet by Aura kes iazide 14:30: 00:00 mouth Medical (HYZAAR) 11 :00 daily. Center 100-12.5 mg per tablet dilTIAZem 2021-03- No 120mg QD Take [address] (CARDIZEM) 0-29 10-29 mg by [facility] 120 MG 14:30: 00:00 mouth Medical tablet 11 :00 daily. [facility] levothyroxi 2021-03- No 50ug Take [address] ne 0-29 10-29 mcg by [facility] (SYNTHROID, 14:30: 00:00 mouth Medi ann LEVOTHROID) 11 :00 Every Center 50 MCG morning on tablet an empty stomach. [facility] 2021-03- No 1{tbl} QD Take [address] drochloroth 0-29 10-29 tablet by Aura mos iazide 14:30: 00:00 mouth Medical (HYZAAR) 11 :00 daily. Dorothy 100-12.5 mg per tablet dilTIAZem 2021-03- No 120mg QD Take [address] (CARDIZEM) 0-29 10-29 mg by [facility] 120 MG 14:30: 00:00 mouth Medical tablet 11 :00 daily. [facility] levothyroxi 2021-03- No 50ug Take [address] ne 0-29 10-29 mcg by [facility] (SYNTHROID, 14:30: 00:00 mouth Medi ann LEVOTHROID) 11 :00 Every Center 50 MCG morning on tablet an empty stomach. [facility] 2021-03- No 1{tbl} QD Take [address] drochloroth 0-29 10-29 tablet by Aura godinez iazide 14:30: 00:00 mouth Medical (HYZAAR) 11 :00 daily. [facility] 100-12.5 mg per tablet famotidine 2021-03 Yes Methodi (PEPCID) 20 0-29 st MG tablet 00:00: Hospita 00 l FeroSuL 325 2021-03 Yes Method i mg (65 mg 0-29 st iron) 00:00: Hospita tablet 00 l metoprolol 2021-03 Yes Methodi tartrate 0-29 st (LOPRESSOR) 00:00: Hospit a 25 mg 00 l tablet famotidine 2021-03 Yes Methodi (PEPCID) 20 0-29 [...] (two) times daily for 30 days. famotidine 2021-03 No 20mg Q24H Take [address] [...] 00 l 875-125 mg per tablet amoxicillin 2021-03 Yes Method i -pot 0-28 st clavulanate 00:00: Hospit a (AUGMENTIN) 00 l 875-125 mg per tablet voriconazol 2021-03- No 200mg QD Take [address] e (VFEND) 0- tablet [facility] 200 MG 00:00: 23:59 (200 mg Medical tablet 00 :00 total) by Center mouth daily for 30 days. voriconazol 2021-03- No 200mg QD Take [address] e (VFEND) 002-21 tablet [facility] 200 MG 00:00: 23:59 (200 mg Medical tablet 00 :00 total) by Center mouth daily for 30 days. voriconazol 2021-03- No 200mg QD Take [address] e (VFEND) 002-21 tablet [facility] 200 MG 00:00: 23:59 (200 mg Medical tablet 00 :00 total) by Center mouth daily for 30 days. voriconazol 2021-03- No 200mg QD Take [address] e (VFEND) 002-21 tablet [facility] 200 MG 00:00: 23:59 (200 mg Medical tablet 00 :00 total) by Center mouth daily for 30 days. voriconazol 2021-03- No 200mg QD Take [address] e (VFEND) 0- tablet [facility] 200 MG 00:00: 23:59 (200 mg Medical tablet 00 :00 total) by Center mouth daily for 30 days. amoxicillin 2021-03- No 1{tbl} Take [address] -clavulanat 0-21 02- tablet by Aura kes e 00:00: 23:59 mouth Medical (AUGMENTIN) 00 :00 every 12 Cent er 875-125 mg (twelve) per tablet hours for 30 days. amoxicillin 2021-03- No 1{tbl} Take [address] -clavulanat 0-26 11-25 tablet by Aura kes e 00:00: 23:59 mouth Medical (AUGMENTIN) 00 :00 every 12 Cent er 875-125 mg (twelve) per tablet hours for 30 days. amoxicillin 2021-03- No 1{tbl} Take [address] -clavulanat 0-26 11-25 tablet by Aura kes e 00:00: 23:59 mouth Medical (AUGMENTIN) 00 :00 every 12 Cent er 875-125 mg (twelve) per tablet hours for 30 days. amoxicillin 2021-03- No 1{tbl} Take [address] -clavulanat 0-26 11-25 tablet by Aura [employer] e 00:00: 23:59 mouth Medical (AUGMENTIN) 00 :00 every 12 Cent er 875-125 mg (twelve) per tablet hours for 30 days. amoxicillin 2021-03- No 1{tbl} Take [address] -clavulanat 0-26 11-25 tablet by [employer] e 00:00: 23:59 mouth Medical (AUGMENTIN) 00 :00 every 12 Cent er 875-125 mg (twelve) per tablet hours for 30 days. iron, Yes 65mg QD Take Methodi carbonyl, 11-[address] 45 mg 11:15: tablets Hospita tablet 20 (65 mg l total) by mouth daily. potassium 0 Yes 10meq Q.5D Take 1 Metho di chloride 11-27 tablet (10 st (K-DUR) 10 11:15: mEq total) H ospita MEQ CR 20 by mouth 2 l tablet (two) times a day. vit 0 Yes Take by Methodi C/E/cuperic 11-[address] /zinc/lutei 11:15: Hospit a n 20 l (PRESERVISI ON LUTEIN ORAL) vibegron 2021-0 Yes QD daily. Methodi (Gemtesa) 11-27 st 75 mg 11:15: Hospita tablet 20 l polyethylen 0 2021- No [id number] 4000mL Take 4,000 Methodi e glycol 8-26 08-[address] (Pact) 00:00: 04:59 mouth once Hospita 236-22.74-6 00 :00 for 1 l .74 -5.86 dose. gram solution polyethylen 2022-0 2022- No [id number] 4000mL Take 4,000 Methodi e glycol 8-26 08-[address] (Pact) 00:00: 04:59 mouth once Hospita 236-22.74-6 00 :00 for 1 l .74 -5.86 dose. gram solution polyethylen 2022-0 2022- No [id number] 4000mL Take 4,000 Methodi e glycol 8-26 08-[address] (Pact) 00:00: 04:59 mouth once Hospita 236-22.74-6 00 :00 for 1 l .74 -5.86 dose. gram solution cholecalcif 2022-0 Yes [id number] 1 capsule. Methodi yarely, 5-14 st vitamin D3, 00:00: Hospit a 1,250 mcg 00 l (50,000 unit) capsule cholecalcif 2022-0 Yes [id number] 1 capsule. Methodi yarely, 5-14 st vitamin D3, 00:00: Hospit a 1,250 mcg 00 l (50,000 unit) capsule cholecalcif 2022-0 Yes [id number] 1 capsule. Methodi yarely, 5-14 st vitamin D3, 00:00: Hospit a 1,250 mcg 00 l (50,000 unit) capsule pantoprazol 2022-0 Yes Method i e 3-14 st (PROTONIX) [...] the ity of DIVINE (B12 19:23: tongue. [facility]) Medical Branch VITS Yes Take by Univers [...] [place] ORAL) 37 Medical Branch VITAMIN B Yes Take by Unive rs [...] tongue. [place] SL) 37 Medical Branch [address] Yes [address] Unive [...] Medical E PRESERVE Branch ORAL) VITAMIN B 2017 Yes Take by Unive rs COMPLEX (B [...] mg per 37 Medical tablet Branch VITS [id number] Yes Take by Univers A,C,E/ZINC/ 8-09 mouth. [...] the ity of DIVINE (B12 19:23: tongue. [facility]) Medical Branch naltrexone- Yes Take by Uni vers bupropion 8 mouth. ity of (CONTRAVE) 19:23: [place] 8-90 mg per 37 Medical tablet Branch VITS Yes Take by Univers A,C,E/ZINC/ 8 mouth. ity of COPPER 19:23: [place] (VISION-VIT 37 Medical E PRESERVE Branch ORAL) VITAMIN B Yes Take by Unive rs COMPLEX (B 8 mouth. ity of COMPLEX 19:23: [place] ORAL) 37 Medical Branch CYANOCOBALA Yes Place Unive rs MIN/COBAMAM 809 under the ity of DIVINE (B12 19:23: tongue. [facility]) Medical Branch levothyroxi Yes levothyrox Methodi ne [...] 25 mcg 8-08 ity of tablet 00:00: [place] [facility] levothyroxi 2017-0 Yes Univer s ne 25 mcg 8-08 ity of tablet 00:00: [place] [facility] levothyroxi 2017-0 Yes Univer s ne 25 mcg 8-08 ity of tablet 00:00: [place] [facility] levothyroxi 2017-0 Yes Univer s ne 25 mcg 8-08 ity of tablet 00:00: [place] [facility] levothyroxi 2017-0 Yes Univer s ne 25 mcg 8-08 ity of tablet 00:00: [place] [facility] levothyroxi 2017-0 Yes Univer s ne 25 mcg 8-08 ity of tablet 00:00: [place] [facility] levothyroxi 2017-0 Yes Univer s ne 25 mcg 8-08 ity of tablet 00:00: [place] [facility] levothyroxi 20170 Yes Univer s ne 25 mcg 8-08 ity of tablet 00:00: [place] [facility] levothyroxi 2017-0 Yes Univer s ne 25 mcg 8-08 ity of tablet 00:00: [place] [facility] CARTIA XT [id number] Yes Univers 180 mg 24 8-02 ity of hr capsule 00:00: [place] [facility] CARTIA XT 2017-0 Yes [facility] 180 mg 24 8-02 ity of hr capsule 00:00: [place] [facility] CARTIA XT 2017-0 Yes [facility] 180 mg 24 8-02 ity of hr capsule 00:00: [place] [facility] CARTIA XT 2017-0 Yes [facility] 180 mg 24 8-02 ity of hr capsule 00:00: [place] [facility] CARTIA XT 2017-0 Yes [facility] 180 mg 24 8-02 ity of hr capsule 00:00: [place] [facility] CARTIA XT 2017-0 Yes [facility] 180 mg 24 8-02 ity of hr capsule 00:00: [place] [facility] CARTIA XT 2017-0 Yes [facility] 180 mg 24 8-02 ity of hr capsule 00:00: [place] [facility] CARTIA XT 2017-0 Yes Univers 180 mg 24 8-02 ity of hr capsule 00:00: [place] [id number] Medical Branch CARTIA XT 2017-0 Yes Univers 180 mg 24 8-02 ity of hr capsule 00:00: [place] [facility] CARTIA XT 2017-0 Yes Univers 180 mg 24 8-02 ity of hr capsule 00:00: [place] 00 Medical Branch CARTIA XT Yes Univers 180 mg 24 10-28 ity of hr capsule 00:00: [place] [facility] CARTIA XT Yes Univers 180 mg 24 10-28 ity of hr capsule 00:00: [place] 00 [...] tablet Branch losartan-hy Yes Univer s drochloroth 7-31 ity of iazide 00:00: [place] 100-25 mg 00 Medical per tablet Branch losartan-hy Yes Univer s drochloroth 7 ity of iazide 00:00: [place] 100-25 mg 00 Medical per tablet Branch losartan-hy Yes Univer s drochloroth 10-26 ity of iazide 00:00: [place] 100-25 mg 00 Medical per tablet Branch losartan-hy Yes Univer s drochloroth 7 ity of iazide 00:00: [place] 100-25 mg 00 Medical per tablet Branch losartan-hy Yes Univer s drochloroth 10-26 ity of iazide 00:00: [place] 100-25 mg 00 Medical per tablet Branch levothyroxi levothyroxi No levothyrox [place] ne 25 mcg ne 25 mcg ine [...] for 30 days. potassium potassium No potassium [place] chloride ER chloride ER chloride Communi 10 [...] days. 90 days. benzonatate benzonatate No benzonatat [place] 100 mg 100 mg e 100 mg Communi capsule capsule capsule ty [facility]osp[facility] Clinics cholecalcif cholecalcif No 1capsul Q1W cholecalci [place] yarely yarely e(s) ferol Communi (vitamin (vitamin [...] days. diltiazem diltiazem No 1capsul Q1D diltiazem [place] CD 180 mg CD 180 mg e(s) CD 180 mg Communi capsule,ext capsule,ext capsule,ex ty ended ended tended Hospita release 24 release 24 release 24 l hr Take 1 hr Take 1 hr Take 1 Clinics capsule capsule capsule every day every day every day by oral by oral by oral route. route. route. levothyroxi levothyroxi No levothyrox [place] ne 25 mcg ne 25 mcg ine [...] days. Macrobid Macrobid No 1capsul BID Macrobid [place] 100 mg 100 mg e(s) 100 mg Communi capsule capsule capsule ty Take 1 Take 1 Take 1 Hospita capsule capsule capsule l twice a day twice a day twice a Clinics by oral by oral day by route for route for oral route 10 days. 10 days. for 10 days. pantoprazol pantoprazol No pantoprazo [place] e 40 mg e 40 mg le 40 mg Commu ni tablet,hawa tablet,hawa tablet,del ty yed release yed release ayed H [facility]spita TAKE 1 TAKE 1 release l TABLET TABLET TAKE 1 Clinics EVERY DAY EVERY DAY TABLET EVERY DAY potassium potassium No potassium [place] chloride ER chloride ER chloride Communi 10 mEq 10 mEq ER 10 mEq ty tablet,exte tablet,exte tablet,ext Hospita nded nded ended l release release release Clinic s Take 1 Take 1 Take 1 tablet tablet tablet every day every day every day by oral by oral by oral route for route for route for 90 days. 90 days. 90 days. cholecalcif cholecalcif No 1capsul Q1W cholecalci [place] yarely yarely e(s) ferol Communi (vitamin (vitamin [...] route for 90 days. diltiazem diltiazem No diltiazem [place] CD 180 mg CD 180 mg CD 180 mg Communi capsule,ext capsule,ext capsule,ex ty ended ended tended Hospita release 24 release 24 release 24 l hr Take 1 hr Take 1 hr Take 1 Clinics capsule capsule capsule twice a day twice a day twice a by oral by oral day by route. route. oral route. gabapentin gabapentin No 1capsul TID gabapentin [place] 100 mg 100 mg e(s) 100 mg Communi capsule capsule capsule ty Take 1 Take 1 Take 1 Hospita capsule 3 capsule 3 capsule 3 l times a day times a day times a Clinics by oral by oral day by route for route for oral route 30 days. 30 days. for 30 days. iron BID iron BID No iron BID [place] [facility]i ty [facility] losartan losartan No losartan [place] 100 mg 100 mg 100 mg Communi tablet Take tablet Take tablet ty 1 tablet 1 tablet Take 1 Hospi ta every day every day tablet l by oral by oral every day Clin ics route for route for by oral 30 days. 30 days. route for 30 days. multivitami multivitami No multivitam [place] n BID n BID in BID Communi ty [facility] ondansetron ondansetron No ondansetro [place] 4 mg 4 mg n 4 mg Communi disintegrat disintegrat disintegra ty ing tablet ing tablet ting [facility] DISSOLVE 1 DISSOLVE 1 tablet l TABLET IN TABLET IN DISSOLVE 1 Clinics MOUTH EVERY MOUTH EVERY TABLET IN 8 HOURS FOR 8 HOURS FOR MOUTH NAUSEA NAUSEA EVERY 8 HOURS FOR NAUSEA pantoprazol pantoprazol No pantoprazo [place] e 40 mg e 40 mg le 40 mg Commu ni tablet,hawa tablet,hawa tablet,del ty yed release yed release ayed H ospita TAKE 1 TAKE 1 release l TABLET TABLET TAKE 1 Clinics EVERY DAY EVERY DAY TABLET EVERY DAY potassium potassium No potassium [place] chloride ER chloride ER chloride Communi 10 mEq 10 mEq ER 10 mEq ty tablet,exte tablet,exte tablet,ext Hospita nded nded ended l release release release Clinic s Take 1 Take 1 Take 1 tablet tablet tablet every day every day every day by oral by oral by oral route for route for route for 90 days. 90 days. 90 days. PreserVisio PreserVisio No PreserVisi [place] n AREDS n AREDS on AREDS Commu ni ty Hospita l Clinics cholecalcif cholecalcif No 1capsul Q1W cholecalci [place] yarely yarely e(s) ferol Communi (vitamin (vitamin [...] route for 90 days. diltiazem diltiazem No diltiazem [place] CD 180 mg CD 180 mg CD 180 mg Communi capsule,ext capsule,ext capsule,ex ty ended ended tended Hospita release 24 release 24 release 24 l hr TAKE ONE hr TAKE ONE hr TAKE Clinics CAPSULE BY CAPSULE BY ONE MOUTH TWICE MOUTH TWICE CAPSULE BY A DAY A DAY MOUTH TWICE A DAY gabapentin gabapentin No gabapentin [place] 100 mg 100 mg 100 mg Communi capsule capsule capsule ty Take 1 Take 1 Take 1 Hospita capsule 3 capsule 3 capsule 3 l times a day times a day times a Clinics by oral by oral day by route for route for oral route 30 days. 30 days. for 30 days. iron BID iron BID No iron BID [place] [facility]i [facility] losartan losartan No losartan [place] 100 mg 100 mg 100 mg Communi tablet Take tablet Take tablet ty 1 tablet 1 tablet Take 1 Hospi ta every day every day tablet l by oral by oral every day Clin ics route for route for by oral 30 days. 30 days. route for 30 days. multivitami multivitami No multivitam [place] n BID n BID in BID Communi ty [facility]osp[facility] Clinics ondansetron ondansetron No ondansetro [place] 4 mg 4 mg n 4 mg Communi disintegrat disintegrat disintegra ty ing tablet ing tablet ting [facility] DISSOLVE 1 DISSOLVE 1 tablet l TABLET IN TABLET IN DISSOLVE 1 Clinics MOUTH EVERY MOUTH EVERY TABLET IN 8 HOURS FOR 8 HOURS FOR MOUTH NAUSEA NAUSEA EVERY 8 HOURS FOR NAUSEA pantoprazol pantoprazol No pantoprazo [place] e 40 mg e 40 mg le 40 mg Commu ni tablet,hawa tablet,hawa tablet,del ty yed release yed release ayed H ospita TAKE 1 TAKE 1 release l TABLET TABLET TAKE 1 Clinics EVERY DAY EVERY DAY TABLET EVERY DAY potassium potassium No 1 Q1D potassium [place] chloride ER chloride ER chloride Communi 20 mEq 20 mEq ER 20 mEq ty tablet,exte tablet,exte tablet,ext Hospita nded nded ended l release release release Clinic s Take 1 Take 1 Take 1 tablet tablet tablet every day every day every day by oral by oral by oral route. route. route. PreserVisio PreserVisio No PreserVisi [place] n AREDS n AREDS on AREDS Commu ni ty Hospita l Clinics tobramycin tobramycin No tobramycin [place] 0.3 % eye 0.3 % eye 0.3 % eye Communi drops drops drops ty INSTILL 1 INSTILL 1 INSTILL 1 Hospita DROP INTO DROP INTO DROP INTO l AFFECTED AFFECTED AFFECTED Cli nics EYE(S) BY EYE(S) BY EYE(S) BY OPHTHALMIC OPHTHALMIC OPHTHALMIC ROUTE EVERY ROUTE EVERY ROUTE 4 HOURS 4 HOURS EVERY 4 HOURS cholecalcif cholecalcif No 1capsul Q1W cholecalci [place] yarely yarely e(s) ferol Communi (vitamin (vitamin [...] route for 90 days. diltiazem diltiazem No diltiazem [place] CD 180 mg CD 180 mg CD 180 mg Communi capsule,ext capsule,ext capsule,ex ty ended ended tended Hospita release 24 release 24 release 24 l hr Take 1 hr Take 1 hr Take 1 Clinics capsule capsule capsule twice a day twice a day twice a by oral by oral day by route for route for oral route 90 days. 90 days. for 90 days. gabapentin gabapentin No gabapentin [place] 100 mg 100 mg 100 mg Communi capsule capsule capsule ty Take 1 Take 1 Take 1 Hospita capsule 3 capsule 3 capsule 3 l times a day times a day times a Clinics by oral by oral day by route for route for oral route 30 days. 30 days. for 30 days. iron BID iron BID No iron BID [place] Communi ty [facility] multivitami multivitami No multivitam [place] n BID n BID in BID Communi ty [facility] ondansetron ondansetron No ondansetro [place] 4 mg 4 mg n 4 mg Communi disintegrat disintegrat disintegra ty ing tablet ing tablet ting [facility] DISSOLVE 1 DISSOLVE 1 tablet l TABLET IN TABLET IN DISSOLVE 1 Clinics MOUTH EVERY MOUTH EVERY TABLET IN 8 HOURS FOR 8 HOURS FOR MOUTH NAUSEA NAUSEA EVERY 8 HOURS FOR NAUSEA pantoprazol pantoprazol No pantoprazo [place] e 40 mg e 40 mg le 40 mg Commu ni tablet,hawa tablet,hawa tablet,del ty yed release yed release ayed [facility]spita TAKE 1 TAKE 1 release l TABLET TABLET TAKE 1 Clinics EVERY DAY EVERY DAY TABLET EVERY DAY potassium potassium No potassium [place] chloride ER chloride ER chloride Communi 10 mEq 10 mEq ER 10 mEq ty tablet,exte tablet,exte tablet,ext Hospita nded nded ended l release(par release(par release(ok Clinics t/cryst) t/cryst) rt/cryst) PreserVisio PreserVisio No PreserVisi [place] n AREDS n AREDS on AREDS Commu ni ty Hospita l [facility] tobramycin tobramycin No tobramycin [place] 0.3 % eye 0.3 % eye 0.3 % eye Communi drops drops drops ty INSTILL 1 INSTILL 1 INSTILL 1 Hospita DROP INTO DROP INTO DROP INTO l AFFECTED AFFECTED AFFECTED Cli nics EYE(S) BY EYE(S) BY EYE(S) BY OPHTHALMIC OPHTHALMIC OPHTHALMIC ROUTE EVERY ROUTE EVERY ROUTE 4 HOURS 4 HOURS EVERY 4 HOURS benzonatate benzonatate No 1capsul TID benzonatat [place] 200 mg 200 mg e(s) e 200 mg Communi capsule capsule capsule ty Take 1 Take 1 Take 1 Hospita capsule 3 capsule 3 capsule 3 l times a day times a day times a Clinics by oral by oral day by route for 4 route for 4 oral route days. days. for 4 days. cholecalcif cholecalcif No 1capsul Q1W cholecalci [place] yarely yarely e(s) ferol Communi (vitamin (vitamin [...] route for 90 days. diltiazem diltiazem No diltiazem [place] CD 180 mg CD 180 mg CD 180 mg Communi capsule,ext capsule,ext capsule,ex ty ended ended tended Hospita release 24 release 24 release 24 l hr Take 1 hr Take 1 hr Take 1 Clinics capsule capsule capsule twice a day twice a day twice a by oral by oral day by route for route for oral route 90 days. 90 days. for 90 days. gabapentin gabapentin No gabapentin [place] 100 mg 100 mg 100 mg Communi capsule capsule capsule ty Take 1 Take 1 Take 1 Hospita capsule 3 capsule 3 capsule 3 l times a day times a day times a Clinics by oral by oral day by route for route for oral route 30 days. 30 days. for 30 days. iron BID iron BID No iron BID [place] Communi ty [facility] multivitami multivitami No multivitam [place] n BID n BID in BID Communi ty [facility] ondansetron ondansetron No ondansetro [place] 4 mg 4 mg n 4 mg Communi disintegrat disintegrat disintegra ty ing tablet ing tablet ting [facility] DISSOLVE 1 DISSOLVE 1 tablet l TABLET IN TABLET IN DISSOLVE 1 Clinics MOUTH EVERY MOUTH EVERY TABLET IN 8 HOURS FOR 8 HOURS FOR MOUTH NAUSEA NAUSEA EVERY 8 HOURS FOR NAUSEA pantoprazol pantoprazol No pantoprazo [place] e 40 mg e 40 mg le 40 mg Commu ni tablet,hawa tablet,hawa tablet,del ty yed release yed release ayed H [facility]spita TAKE 1 TAKE 1 release l TABLET TABLET TAKE 1 Clinics EVERY DAY EVERY DAY TABLET EVERY DAY potassium potassium No potassium [place] chloride ER chloride ER chloride Communi 10 mEq 10 mEq ER 10 mEq ty tablet,exte tablet,exte tablet,ext Hospita nded nded ended l release(par release(par release(ok Clinics t/cryst) t/cryst) rt/cryst) Take 1 Take 1 Take 1 tablet tablet tablet daily by daily by daily by mouth mouth mouth PreserVisio PreserVisio No PreserVisi [place] n AREDS n AREDS on AREDS Commu ni ty Hospita l Clinics Zithromax Zithromax No Zithromax [place] Z-Saud 250 Z-Saud 250 Z-Saud 250 Communi mg tablet mg tablet mg tablet ty TAKE 2 TAKE 2 TAKE 2 Hospita TABLETS TABLETS TABLETS l (500 MG) BY (500 MG) BY (500 MG) Clinics ORAL ROUTE ORAL ROUTE BY ORAL ONCE DAILY ONCE DAILY ROUTE ONCE FOR 1 DAY FOR 1 DAY DAILY FOR THEN 1 THEN 1 1 DAY THEN TABLET (250 TABLET (250 1 TABLET MG) BY ORAL MG) BY ORAL (250 MG) ROUTE ONCE ROUTE ONCE BY ORAL DAILY FOR 4 DAILY FOR 4 ROUTE ONCE DAYS DAYS DAILY FOR 4 DAYS benzonatate benzonatate No 1capsul TID benzonatat [place] 100 mg 100 mg e(s) e 100 mg Communi capsule capsule capsule ty Take 1 Take 1 Take 1 Hospita capsule 3 capsule 3 capsule 3 l times a day times a day times a Clinics by oral by oral day by route. route. oral route. cefuroxime cefuroxime No 1 Q12H cefuroxime [place] axetil 500 axetil 500 axetil 500 Communi mg tablet mg tablet mg tablet ty Take 1 Take 1 Take 1 Hospita tablet tablet tablet l every 12 every 12 every 12 Cli nics hours by hours by hours by oral route. oral route. oral route. cholecalcif cholecalcif No 1capsul Q1W cholecalci [place] yarely yarely e(s) ferol Communi (vitamin (vitamin [...] route for 90 days. diltiazem diltiazem No diltiazem [place] CD 180 mg CD 180 mg CD 180 mg Communi capsule,ext capsule,ext capsule,ex ty ended ended tended Hospita release 24 release 24 release 24 l hr Take 1 hr Take 1 hr Take 1 Clinics capsule capsule capsule twice a day twice a day twice a by oral by oral day by route for route for oral route 90 days. 90 days. for 90 days. iron BID iron BID No iron BID [place] [facility] losartan losartan No losartan [place] 100 mg 100 mg 100 mg Communi tablet TAKE tablet TAKE tablet ty ONE TABLET ONE TABLET TAKE ONE Hospita BY MOUTH BY MOUTH TABLET BY l DAILY DAILY MOUTH Clinics DAILY multivitami multivitami No multivitam [place] n BID n BID in BID Communi ty [facility] pantoprazol pantoprazol No pantoprazo [place] e 40 mg e 40 mg le 40 mg Commu ni tablet,hawa tablet,hawa tablet,del ty yed release yed release ayed H [facility]spita TAKE 1 TAKE 1 release l TABLET TABLET TAKE 1 Clinics EVERY DAY EVERY DAY TABLET EVERY DAY potassium potassium No potassium [place] chloride ER chloride ER chloride Communi 10 mEq 10 mEq ER 10 mEq ty tablet,exte tablet,exte tablet,ext Hospita nded nded ended l release(par release(par release(pa Clinics t/cryst) t/cryst) rt/cryst) Take 1 Take 1 Take 1 tablet tablet tablet every day every day every day by oral by oral by oral route. route. route. PreserVisio PreserVisio No PreserVisi [place] n AREDS n AREDS on AREDS Commu ni ty Hospita Clinics benzonatate benzonatate No 1capsul TID benzonatat [place] 100 mg 100 mg e(s) e 100 mg Communi capsule capsule capsule ty Take 1 Take 1 Take 1 Hospita capsule 3 capsule 3 capsule 3 l times a day times a day times a Clinics by oral by oral day by route. route. oral route. cefuroxime cefuroxime No 1 Q12H cefuroxime [place] axetil 500 axetil 500 axetil 500 Communi mg tablet mg tablet mg tablet ty Take 1 Take 1 Take 1 Hospita tablet tablet tablet l every 12 every 12 every 12 Cli nics hours by hours by hours by oral route. oral route. oral route. cholecalcif cholecalcif No 1capsul Q1W cholecalci [place] yraely yarely e(s) ferol Communi (vitamin (vitamin (vitamin [...] route for 90 days. diltiazem diltiazem No diltiazem [place] CD 180 mg CD 180 mg CD 180 mg Communi capsule,ext capsule,ext capsule,ex ty ended ended tended Hospita release 24 release 24 release 24 l hr Take 1 hr Take 1 hr Take 1 Clinics capsule capsule capsule twice a day twice a day twice a by oral by oral day by route for route for oral route 90 days. 90 days. for 90 days. iron BID iron BID No iron BID [place] [facility] losartan losartan No losartan [place] 100 mg 100 mg 100 mg Communi tablet TAKE tablet TAKE tablet ty ONE TABLET ONE TABLET TAKE ONE Hospita BY MOUTH BY MOUTH TABLET BY l DAILY DAILY MOUTH Clinics DAILY multivitami multivitami No multivitam [place] n BID n BID in BID Communi ty [facility] pantoprazol pantoprazol No pantoprazo [place] e 40 mg e 40 mg le 40 mg Commu ni tablet,hawa tablet,hawa tablet,del ty yed release yed release ayed H ospita TAKE 1 TAKE 1 release l TABLET TABLET TAKE 1 Clinics EVERY DAY EVERY DAY TABLET EVERY DAY potassium potassium No potassium [place] chloride ER chloride ER chloride Communi 10 mEq 10 mEq ER 10 mEq ty tablet,exte tablet,exte tablet,ext Hospita nded nded ended l release(par release(par release(pa Clinics t/cryst) t/cryst) rt/cryst) Take 1 Take 1 Take 1 tablet tablet tablet every day every day every day by oral by oral by oral route. route. route. PreserVisio PreserVisio No PreserVisi [place] n AREDS n AREDS on AREDS Commu ni ty Hospita l Clinics dicyclomine dicyclomine No 1capsul QID dicyclomin [place] [facility] tablet tablet tablet [facility] 3 No [facility] [...] P rogram route. cholecalcif cholecalcif No cholecalci [place] yarely yarely ferol Communi (vitamin (vitamin (vitamin ty D3) 1,250 D3) 1,250 D3) 1,250 Hospita mcg (50,000 mcg (50,000 mcg l unit) unit) (50,000 Clinics capsule capsule unit) TAKE 1 TAKE 1 capsule CAPSULE CAPSULE TAKE 1 EVERY WEEK EVERY WEEK CAPSULE EVERY WEEK Iron Iron No Iron [place] (ferrous (ferrous (ferrous Com maria r sulfate) sulfate) sulfate) ty BID with BID with BID with [facility] food food food l Clinics levothyroxi levothyroxi No levothyrox [place] ne 25 mcg ne 25 mcg ine [...] TABLET EVERY DAY pantoprazol pantoprazol No pantoprazo [place] e 40 mg e 40 mg le 40 mg Commu ni tablet,hawa tablet,hawa tablet,del ty yed release yed release ayed H ospita TAKE 1 TAKE 1 release l TABLET TABLET TAKE 1 Clinics EVERY DAY EVERY DAY TABLET EVERY DAY potassium potassium No potassium [place] chloride ER chloride ER chloride Communi 20 mEq 20 mEq ER 20 mEq ty tablet,exte tablet,exte tablet,ext Hospita nded nded ended l release release release Clinic s TAKE ONE TAKE ONE TAKE ONE TABLET BY TABLET BY TABLET BY MOUTH DAILY MOUTH DAILY MOUTH DAILY PreserVisio PreserVisio No PreserVisi [place] n AREDS-2 n AREDS-2 on AREDS-2 Communi ty Hospita l Clinics B12 B12 No B12 [place] Communi ty [facility] l Clinics cholecalcif cholecalcif No 1capsul Q1W cholecalci [place] yarely yarely e(s) ferol Communi (vitamin (vitamin (vitamin ty D3) 1,250 D3) 1,250 D3) 1,250 Hospita mcg (50,000 mcg (50,000 mcg l unit) unit) (50,000 Clinics capsule capsule unit) Take 1 Take 1 capsule capsule capsule Take 1 every week every week capsule by oral by oral every week route. route. by oral route. diltiazem diltiazem No diltiazem [place] CD 120 mg CD 120 mg CD 120 mg Communi capsule,ext capsule,ext capsule,ex ty ended ended tended Hospita release 24 release 24 release 24 l hr TAKE 1 hr TAKE 1 hr TAKE 1 Clinics CAPSULE CAPSULE CAPSULE EVERY DAY EVERY DAY EVERY DAY levothyroxi levothyroxi No levothyrox [place] ne 25 mcg ne 25 mcg ine [...] TABLET EVERY DAY pantoprazol pantoprazol No pantoprazo [place] e 40 mg e 40 mg le 40 mg Commu ni tablet,hawa tablet,hawa tablet,del ty yed release yed release ayed H ospita TAKE 1 TAKE 1 release l TABLET TABLET TAKE 1 Clinics EVERY DAY EVERY DAY TABLET EVERY DAY PreserVisio PreserVisio No PreserVisi [place] n AREDS-2 n AREDS-2 on AREDS-2 [facility] turmeric turmeric No turmeric [facility] B12 B12 No B12 [place] [facility] cholecalcif cholecalcif No 1capsul Q1W cholecalci [place] yarely yarely e(s) ferol Communi (vitamin (vitamin (vitamin ty D3) 1,250 D3) 1,250 D3) 1,250 Hospita mcg (50,000 mcg (50,000 mcg l unit) unit) (50,000 Clinics capsule capsule unit) Take 1 Take 1 capsule capsule capsule Take 1 every week every week capsule by oral by oral every week route. route. by oral route. diclofenac diclofenac No diclofenac [place] sodium 75 sodium 75 sodium 75 Communi mg mg mg ty tablet,hawa tablet,hawa tablet,del Hospita yed release yed release ayed l release Clinics diltiazem diltiazem No diltiazem [place] CD 120 mg CD 120 mg CD 120 mg Communi capsule,ext capsule,ext capsule,ex ty ended ended tended Hospita release 24 release 24 release 24 l hr TAKE 1 hr TAKE 1 hr TAKE 1 Clinics CAPSULE CAPSULE CAPSULE EVERY DAY EVERY DAY EVERY DAY famotidine famotidine No famotidine [place] 20 mg 20 mg 20 mg Communi tablet tablet tablet [facility] levothyroxi levothyroxi No levothyrox [place] ne 25 mcg ne 25 mcg ine 25 mcg Communi tablet TAKE tablet TAKE tablet ty 1 TABLET 1 TABLET TAKE 1 Hospi ta EVERY DAY EVERY DAY TABLET l EVERY DAY Clinics losartan losartan No losartan [place] 100 100 100 Communi mg-hydrochl mg-hydrochl mg-hydroch orothiazide orothiazide lorothiazi [facility] 25 mg 25 mg de 25 mg l tablet TAKE tablet TAKE tablet Clinics 1 TABLET 1 TABLET TAKE 1 EVERY DAY EVERY DAY TABLET EVERY DAY ondansetron ondansetron No ondansetro [place] HCl 4 mg HCl 4 mg n HCl 4 mg C ommuni tablet tablet tablet [facility] pantoprazol pantoprazol No pantoprazo [place] e 40 mg e 40 mg le 40 mg Commu ni tablet,hawa tablet,hawa tablet,del ty yed release yed release ayed H ospita TAKE 1 TAKE 1 release l TABLET TABLET TAKE 1 Clinics EVERY DAY EVERY DAY TABLET EVERY DAY PreserVisio PreserVisio No PreserVisi [place] n AREDS-2 n AREDS-2 on AREDS-2 Communi [facility] turmeric turmeric No turmeric [place] [facility]i [facility] Anusol-HC Anusol-HC No 1suppos BID Anusol-HC [place] 25 mg 25 mg itor(y/ 25 mg Communi rectal rectal ies) rectal suppository suppository suppositor [facility] Insert 1 Insert 1 y Insert 1 l suppository suppository suppositor Clinics twice a day twice a day y twice a by rectal by rectal day by route for route for rectal 14 days. 14 days. route for 14 days. B12 B12 No B12 [place] [facility] cholecalcif cholecalcif No 1capsul Q1W cholecalci [place] yarely yarely e(s) ferol Communi (vitamin (vitamin (vitamin ty D3) 1,250 D3) 1,250 D3) 1,250 Hospita mcg (50,000 mcg (50,000 mcg l unit) unit) (50,000 Clinics capsule capsule unit) Take 1 Take 1 capsule capsule capsule Take 1 every week every week capsule by oral by oral every week route. route. by oral route. diclofenac diclofenac No diclofenac [place] sodium 75 sodium 75 sodium 75 Communi mg mg mg ty tablet,hawa tablet,hawa tablet,del Hospita yed release yed release ayed l release Clinics diltiazem diltiazem No diltiazem [place] CD 120 mg CD 120 mg CD 120 mg [facility]i capsule,ext capsule,ext capsule,ex ty ended ended tended Hospita release 24 release 24 release 24 l hr TAKE 1 hr TAKE 1 hr TAKE 1 Clinics CAPSULE CAPSULE CAPSULE EVERY DAY EVERY DAY EVERY DAY famotidine famotidine No famotidine [place] 20 mg 20 mg 20 mg [facility]i tablet tablet tablet ty [facility] ibuprofen ibuprofen No ibuprofen [place] 600 mg 600 mg 600 mg Communi tablet tablet tablet ty [facility] levothyroxi levothyroxi No levothyrox [place] ne 25 mcg ne 25 mcg ine [...] TABLET EVERY DAY ondansetron ondansetron No ondansetro [facility] HCl 4 mg HCl 4 mg n HCl 4 mg C [facility] tablet tablet tablet ty [facility] pantoprazol pantoprazol No pantoprazo [place] e 40 mg e 40 mg le 40 mg Commu ni tablet,hawa tablet,hawa tablet,del ty yed release yed release ayed H [facility]spita TAKE 1 TAKE 1 release l TABLET TABLET TAKE 1 Clinics EVERY DAY EVERY DAY TABLET EVERY DAY potassium potassium No potassium [place] chloride ER chloride ER chloride Communi 20 [...] days. 30 days. PreserVisio PreserVisio No PreserVisi [place] n AREDS-2 n AREDS-2 on AREDS-2 Communi [facility] turmeric turmeric No turmeric [facility] Anusol-HC Anusol-HC No 1suppos BID Anusol-HC [place] 25 mg 25 mg itor(y/ 25 mg Communi rectal rectal ies) rectal ty suppository suppository suppositor [facility] Insert 1 Insert 1 y Insert 1 l suppository suppository suppositor Clinics twice a day twice a day y twice a by rectal by rectal day by route for route for rectal 14 days. 14 days. route for 14 days. B12 B12 No B12 [facility] cholecalcif cholecalcif No 1capsul Q1W cholecalci [place] yarely yarely e(s) ferol Communi (vitamin (vitamin (vitamin ty D3) 1,250 D3) 1,250 D3) 1,250 Hospita mcg (50,000 mcg (50,000 mcg l unit) unit) (50,000 Clinics capsule capsule unit) Take 1 Take 1 capsule capsule capsule Take 1 every week every week capsule by oral by oral every week route. route. by oral route. diclofenac diclofenac No diclofenac [place] sodium 75 sodium 75 sodium 75 [facility]i mg mg mg ty tablet,hawa tablet,hawa tablet,del Hospita yed release yed release ayed l release Clinics diltiazem diltiazem No diltiazem [place] CD 120 mg CD 120 mg CD 120 mg [facility]i capsule,ext capsule,ext capsule,ex ty ended ended tended Hospita release 24 release 24 release 24 l hr TAKE 1 hr TAKE 1 hr TAKE 1 Clinics CAPSULE CAPSULE CAPSULE EVERY DAY EVERY DAY EVERY DAY famotidine famotidine No famotidine [place] 20 mg 20 mg 20 mg [facility]i tablet tablet tablet [facility] ibuprofen ibuprofen No ibuprofen [place] 600 mg 600 mg 600 mg [facility]i tablet tablet tablet [facility] levothyroxi levothyroxi No levothyrox [place] ne 25 mcg ne 25 mcg ine [...] TABLET EVERY DAY ondansetron ondansetron No ondansetro [place] HCl 4 mg HCl 4 mg n HCl 4 mg C [facility]i tablet tablet tablet [facility] pantoprazol pantoprazol No pantoprazo [place] e 40 mg e 40 mg le 40 mg Commu ni tablet,hawa tablet,hawa tablet,del ty yed release yed release ayed H [facility]spita TAKE 1 TAKE 1 release l TABLET TABLET TAKE 1 Clinics EVERY DAY EVERY DAY TABLET EVERY DAY potassium potassium No potassium [place] chloride ER chloride ER chloride Communi 20 [...] days. 30 days. PreserVisio PreserVisio No PreserVisi [place] n AREDS-2 n AREDS-2 on AREDS-2 Communi [facility] turmeric turmeric No turmeric [facility] [facility] Anusol-HC Anusol-HC No 1suppos BID Anusol-HC [place] 25 mg 25 mg itor(y/ 25 mg Communi rectal rectal ies) rectal ty suppository suppository suppositor [facility] Insert 1 Insert 1 y Insert 1 l suppository suppository suppositor Clinics twice a day twice a day y twice a by rectal by rectal day by route for route for rectal 14 days. 14 days. route for 14 days. B12 B12 No B12 [facility] cholecalcif cholecalcif No 1capsul Q1W cholecalci [place] yarely yarely e(s) ferol Communi (vitamin (vitamin (vitamin ty D3) 1,250 D3) 1,250 D3) 1,250 Hospita mcg (50,000 mcg (50,000 mcg l unit) unit) (50,000 Clinics capsule capsule unit) Take 1 Take 1 capsule capsule capsule Take 1 every week every week capsule by oral by oral every week route. route. by oral route. diclofenac diclofenac No diclofenac [place] sodium 75 sodium 75 sodium 75 [facility]i mg mg mg ty tablet,hawa tablet,hawa tablet,del Hospita yed release yed release ayed l release Clinics diltiazem diltiazem No diltiazem [place] CD 120 mg CD 120 mg CD 120 mg [facility]i capsule,ext capsule,ext capsule,ex ty ended ended tended Hospita release 24 release 24 release 24 l hr TAKE 1 hr TAKE 1 hr TAKE 1 Clinics CAPSULE CAPSULE CAPSULE EVERY DAY EVERY DAY EVERY DAY famotidine famotidine No famotidine [place] 20 mg 20 mg 20 mg [facility]i tablet tablet tablet ty [facility] ibuprofen ibuprofen No ibuprofen [place] 600 mg 600 mg 600 mg [facility]i tablet tablet tablet ty [facility] levothyroxi levothyroxi No levothyrox [place] ne 25 mcg ne 25 mcg ine 25 mcg Communi tablet TAKE tablet TAKE tablet ty 1 TABLET 1 TABLET TAKE 1 Hospi ta EVERY DAY EVERY DAY TABLET l EVERY DAY Clinics losartan losartan No losartan [facility] [place] 100 100 100 Communi mg-hydrochl mg-hydrochl mg-hydroch orothiazide orothiazide lorothiazi Hospita 25 mg 25 mg de 25 mg l tablet TAKE tablet TAKE tablet Clinics 1 TABLET 1 TABLET TAKE 1 EVERY DAY EVERY DAY TABLET EVERY DAY ondansetron ondansetron No ondansetro [place] HCl 4 mg HCl 4 mg n HCl 4 mg C [facility]i tablet tablet tablet ty [facility] pantoprazol pantoprazol No pantoprazo [place] e 40 mg e 40 mg le 40 mg Commu ni tablet,hawa tablet,hawa tablet,del ty yed release yed release ayed H [facility]spita TAKE 1 TAKE 1 release l TABLET TABLET TAKE 1 Clinics EVERY DAY EVERY DAY TABLET EVERY DAY potassium potassium No 1 Q1D potassium [place] chloride ER chloride ER chloride Communi 20 [...] days. 30 days. potassium potassium No potassium [place] chloride ER chloride ER chloride Communi 20 mEq 20 mEq ER 20 mEq ty tablet,exte tablet,exte tablet,ext Hospita nded nded ended l release(par release(par release(ok Clinics t/cryst) t/cryst) rt/cryst) PreserVisio PreserVisio No PreserVisi [place] n AREDS-2 n AREDS-2 on AREDS-2 Communi ty [facility] turmeric turmeric No turmeric [place] Communi ty [facility] B12 B12 No B12 [facility] cholecalcif cholecalcif No cholecalci [place] yarely yarely ferol Communi (vitamin (vitamin (vitamin ty D3) 1,250 D3) 1,250 D3) 1,250 Hospita mcg (50,000 mcg (50,000 mcg l unit) unit) (50,000 Clinics capsule capsule unit) TAKE 1 TAKE 1 capsule CAPSULE CAPSULE TAKE 1 EVERY WEEK EVERY WEEK CAPSULE EVERY WEEK diltiazem diltiazem No diltiazem [place] CD 120 mg CD 120 mg CD 120 mg [facility]i capsule,ext capsule,ext capsule,ex ty ended ended tended Hospita release 24 release 24 release 24 l hr TAKE 1 hr TAKE 1 hr TAKE 1 Clinics CAPSULE CAPSULE CAPSULE EVERY DAY EVERY DAY EVERY DAY famotidine famotidine No famotidine [place] 20 mg 20 mg 20 mg Communi tablet tablet tablet [facility] ibuprofen ibuprofen No ibuprofen [place] 600 mg 600 mg 600 mg [facility]i tablet tablet tablet ty [facility] levothyroxi levothyroxi No levothyrox [place] ne 25 mcg ne 25 mcg ine 25 mcg Communi tablet TAKE tablet TAKE tablet ty 1 TABLET 1 TABLET TAKE 1 Hospi ta EVERY DAY EVERY DAY TABLET l EVERY DAY Clinics losartan losartan No losartan [facility] [place] 100 100 100 Communi mg-hydrochl mg-hydrochl mg-hydroch orothiazide orothiazide lorothiazi Hospita 25 mg 25 mg de 25 mg l tablet TAKE tablet TAKE tablet Clinics 1 TABLET 1 TABLET TAKE 1 EVERY DAY EVERY DAY TABLET EVERY DAY ondansetron ondansetron No ondansetro [place] HCl 4 mg HCl 4 mg n HCl 4 mg C [facility]i tablet tablet tablet ty [facility] pantoprazol pantoprazol No pantoprazo [place] e 40 mg e 40 mg le 40 mg Commu ni tablet,hawa tablet,hawa tablet,del ty yed release yed release ayed H [facility]spita TAKE 1 TAKE 1 release l TABLET TABLET TAKE 1 Clinics EVERY DAY EVERY DAY TABLET EVERY DAY potassium potassium No potassium [place] chloride ER chloride ER chloride Communi 20 mEq 20 mEq ER 20 mEq ty tablet,exte tablet,exte tablet,ext Hospita nded nded ended l release release release Clinic s TAKE ONE TAKE ONE TAKE ONE TABLET BY TABLET BY TABLET BY MOUTH DAILY MOUTH DAILY MOUTH DAILY PreserVisio PreserVisio No PreserVisi [place] n AREDS-2 n AREDS-2 on AREDS-2 Communi [facility] turmeric turmeric No turmeric [facility] B12 B12 No B12 [facility] cholecalcif cholecalcif No cholecalci [place] yarely yareyl ferol Communi (vitamin (vitamin (vitamin ty D3) 1,250 D3) 1,250 D3) 1,250 Hospita mcg (50,000 mcg (50,000 mcg l unit) unit) (50,000 Clinics capsule capsule unit) TAKE 1 TAKE 1 capsule CAPSULE CAPSULE TAKE 1 EVERY WEEK EVERY WEEK CAPSULE EVERY WEEK diltiazem diltiazem No diltiazem [place] CD 120 mg CD 120 mg CD 120 mg [facility]i capsule,ext capsule,ext capsule,ex ty ended ended tended Hospita release 24 release 24 release 24 l hr TAKE 1 hr TAKE 1 hr TAKE 1 Clinics CAPSULE CAPSULE CAPSULE EVERY DAY EVERY DAY EVERY DAY famotidine famotidine No famotidine [place] 20 mg 20 mg 20 mg [facility]i tablet tablet tablet [facility] ibuprofen ibuprofen No ibuprofen [place] 600 mg 600 mg 600 mg [facility]i tablet tablet tablet [facility] levothyroxi levothyroxi No 1 Q2D levothyrox [place] ne 25 mcg ne 25 mcg ine [...] TABLET EVERY DAY ondansetron ondansetron No ondansetro [place] HCl 4 mg HCl 4 mg n HCl 4 mg C [facility] tablet tablet tablet [facility] pantoprazol pantoprazol No pantoprazo [place] e 40 mg e 40 mg le 40 mg Commu ni tablet,hawa tablet,hawa tablet,del ty yed release yed release ayed H [facility]spita TAKE 1 TAKE 1 release l TABLET TABLET TAKE 1 Clinics EVERY DAY EVERY DAY TABLET EVERY DAY potassium potassium No potassium [place] chloride ER chloride ER chloride Communi 20 mEq 20 mEq ER 20 mEq ty tablet,exte tablet,exte tablet,ext Hospita nded nded ended l release release release Clinic s TAKE ONE TAKE ONE TAKE ONE TABLET BY TABLET BY TABLET BY MOUTH DAILY MOUTH DAILY MOUTH DAILY PreserVisio PreserVisio No PreserVisi [place] n AREDS-2 n AREDS-2 on AREDS-2 Communi [facility] turmeric turmeric No turmeric [facility] [place] [facility] B12 B12 No B12 [facility] cholecalcif cholecalcif No cholecalci [place] yarely yarely ferol Communi (vitamin (vitamin (vitamin ty D3) 1,250 D3) 1,250 D3) 1,250 Hospita mcg (50,000 mcg (50,000 mcg l unit) unit) (50,000 Clinics capsule capsule unit) TAKE 1 TAKE 1 capsule CAPSULE CAPSULE TAKE 1 EVERY WEEK EVERY WEEK CAPSULE EVERY WEEK diltiazem diltiazem No diltiazem [place] CD 120 mg CD 120 mg CD 120 mg Communi capsule,ext capsule,ext capsule,ex ty ended ended tended Hospita release 24 release 24 release 24 l hr TAKE 1 hr TAKE 1 hr TAKE 1 Clinics CAPSULE CAPSULE CAPSULE EVERY DAY EVERY DAY EVERY DAY famotidine famotidine No famotidine [place] 20 mg 20 mg 20 mg [facility]i tablet tablet tablet [facility] ibuprofen ibuprofen No ibuprofen [place] 600 mg 600 mg 600 mg [facility]i tablet tablet tablet [facility] levothyroxi levothyroxi No levothyrox [place] ne 25 mcg ne 25 mcg ine 25 mcg Communi tablet Take tablet Take tablet ty 1 tablet 1 tablet Take 1 Hospi ta every other every other tablet l day by oral day by oral every Clinics route. route. other day by oral route. losartan losartan No losartan [facility] [place] 100 100 100 Communi mg-hydrochl mg-hydrochl mg-hydroch orothiazide orothiazide lorothiazi [facility] 25 mg 25 mg de 25 mg l tablet TAKE tablet TAKE tablet Clinics 1 TABLET 1 TABLET TAKE 1 EVERY DAY EVERY DAY TABLET EVERY DAY ondansetron ondansetron No ondansetro [place] HCl 4 mg HCl 4 mg n HCl 4 mg C [facility]i tablet tablet tablet [facility] pantoprazol pantoprazol No pantoprazo [place] e 40 mg e 40 mg le 40 mg Commu ni tablet,hawa tablet,hawa tablet,del ty yed release yed release ayed H [facility]spita TAKE 1 TAKE 1 release l TABLET TABLET TAKE 1 Clinics EVERY DAY EVERY DAY TABLET EVERY DAY potassium potassium No potassium [place] chloride ER chloride ER chloride Communi 20 mEq 20 mEq ER 20 mEq ty tablet,exte tablet,exte tablet,ext Hospita nded nded ended l release release release Clinic s TAKE ONE TAKE ONE TAKE ONE TABLET BY TABLET BY TABLET BY MOUTH DAILY MOUTH DAILY MOUTH DAILY PreserVisio PreserVisio No PreserVisi [place] n AREDS-2 n AREDS-2 on AREDS-2 [facility] turmeric turmeric No turmeric [facility] [place] [facility] B12 B12 No B12 [facility] cholecalcif cholecalcif No cholecalci [place] yarely yarely ferol Communi (vitamin (vitamin (vitamin ty D3) 1,250 D3) 1,250 D3) 1,250 Hospita mcg (50,000 mcg (50,000 mcg l unit) unit) (50,000 Clinics capsule capsule unit) TAKE 1 TAKE 1 capsule CAPSULE CAPSULE TAKE 1 EVERY WEEK EVERY WEEK CAPSULE EVERY WEEK diltiazem diltiazem No diltiazem [place] CD 120 mg CD 120 mg CD 120 mg Communi capsule,ext capsule,ext capsule,ex ty ended ended tended Hospita release 24 release 24 release 24 l hr TAKE 1 hr TAKE 1 hr TAKE 1 Clinics CAPSULE CAPSULE CAPSULE EVERY DAY EVERY DAY EVERY DAY famotidine famotidine No famotidine [place] 20 mg 20 mg 20 mg Communi tablet tablet tablet ty [facility] ibuprofen ibuprofen No ibuprofen [place] 600 mg 600 mg 600 mg Communi tablet tablet tablet ty [facility] levothyroxi levothyroxi No levothyrox [place] ne 25 mcg ne 25 mcg ine [...] TABLET EVERY DAY ondansetron ondansetron No ondansetro [place] HCl 4 mg HCl 4 mg n HCl 4 mg C [facility] tablet tablet tablet [facility] pantoprazol pantoprazol No pantoprazo [place] e 40 mg e 40 mg le 40 mg Commu ni tablet,hawa tablet,hawa tablet,del ty yed release yed release ayed H [facility]spita TAKE 1 TAKE 1 release l TABLET TABLET TAKE 1 Clinics EVERY DAY EVERY DAY TABLET EVERY DAY potassium potassium No potassium [place] chloride ER chloride ER chloride Communi 20 mEq 20 mEq ER 20 mEq ty tablet,exte tablet,exte tablet,ext Hospita nded nded ended l release release release Clinic s TAKE ONE TAKE ONE TAKE ONE TABLET BY TABLET BY TABLET BY MOUTH DAILY MOUTH DAILY MOUTH DAILY PreserVisio PreserVisio No PreserVisi [place] n AREDS-2 n AREDS-2 on AREDS-2 Communi [facility] turmeric turmeric No turmeric [facility] [place] [facility] B12 B12 No B12 [facility] cholecalcif cholecalcif No cholecalci [place] yarely yarely ferol Communi (vitamin (vitamin (vitamin ty D3) 1,250 D3) 1,250 D3) 1,250 Hospita mcg (50,000 mcg (50,000 mcg l unit) unit) (50,000 Clinics capsule capsule unit) TAKE 1 TAKE 1 capsule CAPSULE CAPSULE TAKE 1 EVERY WEEK EVERY WEEK CAPSULE EVERY WEEK diltiazem diltiazem No diltiazem [place] CD 120 mg CD 120 mg CD 120 mg Communi capsule,ext capsule,ext capsule,ex ty ended ended tended [facility]ospita release 24 release 24 release 24 l hr TAKE 1 hr TAKE 1 hr TAKE 1 Clinics CAPSULE CAPSULE CAPSULE EVERY DAY EVERY DAY EVERY DAY escitalopra escitalopra No escitalopr [place] m 10 mg m 10 mg am 10 mg Commu ni tablet Take tablet Take tablet ty 1 tablet 1 tablet Take 1 Hospi ta every day every day tablet l by oral by oral every day Clin ics route. route. by oral route. famotidine famotidine No famotidine [place] 20 mg 20 mg 20 mg Communi tablet tablet tablet ty [facility] ibuprofen ibuprofen No ibuprofen [place] 800 mg 800 mg 800 mg Communi tablet tablet tablet ty [facility] levothyroxi levothyroxi No levothyrox [place] ne 25 mcg ne 25 mcg ine [...] TABLET EVERY DAY ondansetron ondansetron No ondansetro [place] HCl 4 mg HCl 4 mg n HCl 4 mg C [facility]i tablet tablet tablet ty [facility] pantoprazol pantoprazol No pantoprazo [place] e 40 mg e 40 mg le 40 mg Commu ni tablet,hawa tablet,hawa tablet,del ty yed release yed release ayed H [facility]ita TAKE 1 TAKE 1 release l TABLET TABLET TAKE 1 Clinics EVERY DAY EVERY DAY TABLET EVERY DAY potassium potassium No potassium [place] chloride ER chloride ER chloride Communi 20 mEq 20 mEq ER 20 mEq ty tablet,exte tablet,exte tablet,ext Hospita nded nded ended l release release release Clinic s TAKE ONE TAKE ONE TAKE ONE TABLET BY TABLET BY TABLET BY MOUTH DAILY MOUTH DAILY MOUTH DAILY PreserVisio PreserVisio No PreserVisi [place] n AREDS-2 n AREDS-2 on AREDS-2 Communi ty [facility] tramadol 50 tramadol 50 No tramadol [place] mg tablet mg tablet 50 mg Comm uni take one take one tablet ty tablet by tablet by take one H [facility]ita mouth every mouth every tablet by l 6 hrs for 6 hrs for mouth Clin ics pain. pain. every 6 hrs for pain. turmeric turmeric No turmeric [place] Communi ty [facility] B12 B12 No B12 [facility] [facility] cholecalcif cholecalcif No cholecalci [place] yarely yarely ferol Communi (vitamin (vitamin (vitamin ty D3) 1,250 D3) 1,250 D3) 1,250 Hospita mcg (50,000 mcg (50,000 mcg l unit) unit) (50,000 Clinics capsule capsule unit) TAKE 1 TAKE 1 capsule CAPSULE CAPSULE TAKE 1 EVERY WEEK EVERY WEEK CAPSULE EVERY WEEK diltiazem diltiazem No diltiazem [place] CD 120 mg CD 120 mg CD 120 mg Communi capsule,ext capsule,ext capsule,ex ty ended ended tended Hospita release 24 release 24 release 24 l hr TAKE 1 hr TAKE 1 hr TAKE 1 Clinics CAPSULE CAPSULE CAPSULE EVERY DAY EVERY DAY EVERY DAY escitalopra escitalopra No escitalopr [place] m 10 mg m 10 mg am 10 mg Commu ni tablet Take tablet Take tablet ty 1 tablet 1 tablet Take 1 Hospi ta every day every day tablet l by oral by oral every day Clin ics route. route. by oral route. famotidine famotidine No famotidine [place] 20 mg 20 mg 20 mg Communi tablet tablet tablet ty [facility] ibuprofen ibuprofen No ibuprofen [place] 800 mg 800 mg 800 mg Communi tablet tablet tablet ty [facility] Iron Iron No Iron [place] (ferrous (ferrous (ferrous Com maria r sulfate) sulfate) sulfate) ty BID with BID with BID with [facility] food food food l Clinics levothyroxi levothyroxi No levothyrox [place] ne 25 mcg ne 25 mcg ine [...] TABLET EVERY DAY ondansetron ondansetron No ondansetro [place] HCl 4 mg HCl 4 mg n HCl 4 mg C om[facility]i tablet tablet tablet ty [facility] pantoprazol pantoprazol No pantoprazo [place] e 40 mg e 40 mg le 40 mg Commu ni tablet,hawa tablet,hawa tablet,del ty yed release yed release ayed H [facility]spita TAKE 1 TAKE 1 release l TABLET TABLET TAKE 1 Clinics EVERY DAY EVERY DAY TABLET EVERY DAY potassium potassium No potassium [place] chloride ER chloride ER chloride Communi 20 mEq 20 mEq ER 20 mEq ty tablet,exte tablet,exte tablet,ext Hospita nded nded ended l release release release Clinic s TAKE ONE TAKE ONE TAKE ONE TABLET BY TABLET BY TABLET BY MOUTH DAILY MOUTH DAILY MOUTH DAILY PreserVisio PreserVisio No PreserVisi [place] n AREDS-2 n AREDS-2 [facility] simethicone simethicone No 1 TID simethicon [place] 125 mg 125 mg e 125 mg Communi chewable chewable chewable ty tablet Take tablet Take tablet Hospita 1 tablet 3 1 tablet 3 Take 1 l times a day times a day tablet 3 Clinics by oral by oral times a route as route as day by needed. needed. oral route as needed. tramadol 50 tramadol 50 No tramadol [place] mg tablet mg tablet 50 mg Comm uni take one take one tablet ty tablet by tablet by take one [facility] mouth every mouth every tablet by l 6 hrs for 6 hrs for mouth Clin ics pain. pain. every 6 hrs for pain. turmeric turmeric No turmeric [facility] [place] [facility] B Complex B Complex No B Complex [place] daily daily daily Communi [facility] B12 B12 No B12 [facility] [facility] cholecalcif cholecalcif No cholecalci [place] yarely yarely ferol Communi (vitamin (vitamin (vitamin ty D3) 1,250 D3) 1,250 D3) 1,250 Hospita mcg (50,000 mcg (50,000 mcg l unit) unit) (50,000 Clinics capsule capsule unit) TAKE 1 TAKE 1 capsule CAPSULE CAPSULE TAKE 1 EVERY WEEK EVERY WEEK CAPSULE EVERY WEEK dicyclomine dicyclomine No dicyclomin [place] 10 mg 10 mg e 10 mg Communi capsule capsule capsule ty take 1 ab 4 take 1 ab 4 take 1 ab Hospita times daily times daily 4 times l as needed as needed daily as C linics needed escitalopra escitalopra No escitalopr [place] m 10 mg m 10 mg am 10 mg Commu ni tablet Take tablet Take tablet ty 1 tablet 1 tablet Take 1 Hospi ta every day every day tablet l by oral by oral every day Clin ics route. route. by oral route. ibuprofen ibuprofen No ibuprofen [place] 800 mg 800 mg 800 mg Communi tablet tablet tablet ty [facility] Iron Iron No Iron [place] (ferrous (ferrous (ferrous Com maria r sulfate) sulfate) sulfate) ty BID with BID with BID with [facility] food food food l Clinics levothyroxi levothyroxi No levothyrox [place] ne 25 mcg ne 25 mcg ine [...] TABLET EVERY DAY metronidazo metronidazo No metronidaz [place] le 500 mg le 500 mg ole 500 mg Communi tablet tablet tablet ty [facility] l Clinics Neuriva Neuriva No Neuriva [place] Plus 1 Plus 1 Plus 1 Communi daily daily daily ty [facility] Tate 3 Tate 3 No Tate 3 [place] daily daily daily Communi ty [facility] l Clinics pantoprazol pantoprazol No pantoprazo [place] e 40 mg e 40 mg le 40 mg Commu ni tablet,hawa tablet,hawa tablet,del ty yed release yed release ayed [facility]spita TAKE 1 TAKE 1 release l TABLET TABLET TAKE 1 Clinics EVERY DAY EVERY DAY TABLET EVERY DAY potassium potassium No potassium [place] chloride ER chloride ER chloride Communi 20 mEq 20 mEq ER 20 mEq ty tablet,exte tablet,exte tablet,ext Hospita nded nded ended l release release release Clinic s TAKE ONE TAKE ONE TAKE ONE TABLET BY TABLET BY TABLET BY MOUTH DAILY MOUTH DAILY MOUTH DAILY PreserVisio PreserVisio No PreserVisi [place] n AREDS-2 n AREDS-2 on AREDS-2 Communi [facility] simethicone simethicone No 1 TID simethicon [place] 125 mg 125 mg e 125 mg Communi chewable chewable chewable ty tablet Take tablet Take tablet Hospita 1 tablet 3 1 tablet 3 Take 1 l times a day times a day tablet 3 Clinics by oral by oral times a route as route as day by needed. needed. oral route as needed. turmeric turmeric No turmeric [facility] B Complex B Complex No B Complex [place] daily daily daily Communi ty [facility] B12 B12 No B12 [facility] cholecalcif cholecalcif No cholecalci [place] yarely yarely ferol [facility] (vitamin (vitamin ty D3) 1,250 D3) 1,250 D3) 1,250 Hospita mcg (50,000 mcg (50,000 mcg l unit) unit) (50,000 Clinics capsule capsule unit) TAKE 1 TAKE 1 capsule CAPSULE CAPSULE TAKE 1 EVERY WEEK EVERY WEEK CAPSULE EVERY WEEK Cipro 500 Cipro 500 No 1 Q12H Cipro 500 [place] mg tablet mg tablet mg tablet Communi Take 1 Take 1 Take 1 ty tablet tablet tablet Hospita every 12 every 12 every 12 l hours by hours by hours by Cli nics oral route. oral route. oral route. dicyclomine dicyclomine No dicyclomin [place] 10 mg 10 mg e 10 mg Communi capsule capsule capsule ty take 1 ab 4 take 1 ab 4 take 1 ab Hospita times daily times daily 4 times l as needed as needed daily as C linics needed escitalopra escitalopra No escitalopr [place] m 10 mg m 10 mg am 10 mg Commu ni tablet Take tablet Take tablet ty 1 tablet 1 tablet Take 1 Hospi ta every day every day tablet l by oral by oral every day Clin ics route. route. by oral route. ibuprofen ibuprofen No ibuprofen [place] 800 mg 800 mg 800 mg Communi tablet tablet tablet ty [facility] Iron Iron No Iron [place] (ferrous (ferrous (ferrous Com maria r sulfate) sulfate) sulfate) ty BID with BID with BID with [facility] food food food l Clinics levothyroxi levothyroxi No levothyrox [facility] ne 25 mcg ne 25 mcg ine [...] DAY metronidazo metronidazo No 1 Q8H metronidaz [facility] le 500 mg le 500 mg ole 500 mg Communi tablet Take tablet Take tablet ty 1 tablet 1 tablet Take 1 Hospi ta every 8 every 8 tablet l hours by hours by every 8 Clin ics oral route. oral route. hours by oral route. Neuriva Neuriva No Neuriva [facility] Plus 1 Plus 1 Plus 1 Communi daily daily daily ty [facility] Tate 3 Tate 3 No Tate 3 [facility] daily daily daily Communi ty [facility] pantoprazol pantoprazol No pantoprazo [facility] e 40 mg e 40 mg le 40 mg Commu ni tablet,hawa tablet,hawa tablet,del ty yed release yed release ayed H [facility]spita TAKE 1 TAKE 1 release l TABLET TABLET TAKE 1 Clinics EVERY DAY EVERY DAY TABLET EVERY DAY potassium potassium No potassium [facility] chloride ER chloride ER chloride Communi 20 mEq 20 mEq ER 20 mEq ty tablet,exte tablet,exte tablet,ext Hospita nded nded ended l release release release Clinic s TAKE ONE TAKE ONE TAKE ONE TABLET BY TABLET BY TABLET BY MOUTH DAILY MOUTH DAILY MOUTH DAILY PreserVisio PreserVisio No PreserVisi [facility] n AREDS-2 n AREDS-2 on AREDS-2 Communi [facility] simethicone simethicone No 1 TID simethicon [facility] 125 mg 125 mg e 125 mg Communi chewable chewable chewable ty tablet Take tablet Take tablet Hospita 1 tablet 3 1 tablet 3 Take 1 l times a day times a day tablet 3 Clinics by oral by oral times a route as route as day by needed. needed. oral route as needed. turmeric turmeric No turmeric Swe renee Communi ty [facility] B Complex B Complex No B Complex [place] daily daily daily Communi ty [facility] B12 B12 No B12 [facility] Communi ty [facility] l [facility] cholecalcif cholecalcif No cholecalci [facility] yarely yarely ferol Communi (vitamin (vitamin (vitamin ty D3) 1,250 D3) 1,250 D3) 1,250 Hospita mcg (50,000 mcg (50,000 mcg l unit) unit) (50,000 Clinics capsule capsule unit) TAKE 1 TAKE 1 capsule CAPSULE CAPSULE TAKE 1 EVERY WEEK EVERY WEEK CAPSULE EVERY WEEK dicyclomine dicyclomine No dicyclomin [facility] 10 mg 10 mg e 10 mg Communi capsule capsule capsule ty take 1 ab 4 take 1 ab 4 take 1 ab Hospita times daily times daily 4 times l as needed as needed daily as C linics needed escitalopra escitalopra No escitalopr [facility] m 10 mg m 10 mg am 10 mg Commu ni tablet Take tablet Take tablet ty 1 tablet 1 tablet Take 1 Hospi ta every day every day tablet l by oral by oral every day Clin ics route. route. by oral route. ibuprofen ibuprofen No ibuprofen [facility] 800 mg 800 mg 800 mg Communi tablet tablet tablet ty [facility] Iron Iron No Iron [facility] (ferrous (ferrous (ferrous Com maria r sulfate) sulfate) sulfate) ty BID with BID with BID with [facility] food food food l Clinics levothyroxi levothyroxi No levothyrox [facility] ne 25 mcg ne 25 mcg ine [...] TABLET EVERY DAY metronidazo metronidazo No metronidaz [facility] le 500 mg le 500 mg ole 500 mg Communi tablet Take tablet Take tablet ty 1 tablet 1 tablet Take 1 Hospi ta every 8 every 8 tablet l hours by hours by every 8 Clin ics oral route. oral route. hours by oral route. Neuriva Neuriva No Neuriva [facility] Plus 1 Plus 1 Plus 1 Communi daily daily daily ty [facility] Tate 3 Tate 3 No Tate 3 [facility] daily daily daily Communi ty [facility] pantoprazol pantoprazol No pantoprazo [facility] e 40 mg e 40 mg le 40 mg Commu ni tablet,hawa tablet,hawa tablet,del ty yed release yed release ayed H ospita TAKE 1 TAKE 1 release l TABLET TABLET TAKE 1 Clinics EVERY DAY EVERY DAY TABLET EVERY DAY potassium potassium No potassium [place] chloride ER chloride ER chloride Communi 20 mEq 20 mEq ER 20 mEq ty tablet,exte tablet,exte tablet,ext Hospita nded nded ended l release release release Clinic s TAKE ONE TAKE ONE TAKE ONE TABLET BY TABLET BY TABLET BY MOUTH DAILY MOUTH DAILY MOUTH DAILY PreserVisio PreserVisio No PreserVisi [facility] AREDS-2 n AREDS-2 on AREDS-2 Communi ty [facility] simethicone simethicone No 1 TID simethicon [facility] 125 mg 125 mg e 125 mg Communi chewable chewable chewable ty tablet Take tablet Take tablet Hospita 1 tablet 3 1 tablet 3 Take 1 l times a day times a day tablet 3 Clinics by oral by oral times a route as route as day by needed. needed. oral route as needed. turmeric turmeric No turmeric Swe renee Communi ty [facility] B Complex B Complex No B Complex [place] daily daily daily Communi ty [facility] B12 B12 No B12 [facility]i [facility] cholecalcif cholecalcif No cholecalci [place] yarely yarely ferol Communi (vitamin (vitamin (vitamin ty D3) 1,250 D3) 1,250 D3) 1,250 [facility] mcg (50,000 mcg (50,000 mcg l unit) unit) (50,000 Clinics capsule capsule unit) TAKE 1 TAKE 1 capsule CAPSULE CAPSULE TAKE 1 EVERY WEEK EVERY WEEK CAPSULE EVERY WEEK dicyclomine dicyclomine No dicyclomin [facility] 10 mg 10 mg e 10 mg Communi capsule capsule capsule ty take 1 ab 4 take 1 ab 4 take 1 ab Hospita times daily times daily 4 times l as needed as needed daily as C linics needed escitalopra escitalopra No escitalopr [facility] m 10 mg m 10 mg am 10 mg Commu ni tablet Take tablet Take tablet ty 1 tablet 1 tablet Take 1 Hospi ta every day every day tablet l by oral by oral every day Clin ics route. route. by oral route. ibuprofen ibuprofen No ibuprofen [facility] 800 mg 800 mg 800 mg Communi tablet tablet tablet ty [facility] Iron Iron No Iron [place] (ferrous (ferrous (ferrous Com maria r sulfate) sulfate) sulfate) ty BID with BID with BID with [facility] food food food l Clinics levothyroxi levothyroxi No levothyrox [facility] ne 25 mcg ne 25 mcg ine [...] TABLET EVERY DAY metronidazo metronidazo No metronidaz [facility] le 500 mg le 500 mg ole 500 mg Communi tablet Take tablet Take tablet ty 1 tablet 1 tablet Take 1 Hospi ta every 8 every 8 tablet l hours by hours by every 8 Clin ics oral route. oral route. hours by oral route. Neuriva Neuriva No Neuriva [facility] Plus 1 Plus 1 Plus 1 Communi daily daily daily ty [facility] Tate 3 Tate 3 No Tate 3 [place] daily daily daily [facility] pantoprazol pantoprazol No pantoprazo [facility] e 40 mg e 40 mg le 40 mg Commu ni tablet,hawa tablet,hawa tablet,del ty yed release yed release ayed H ospita TAKE 1 TAKE 1 release l TABLET TABLET TAKE 1 Clinics EVERY DAY EVERY DAY TABLET EVERY DAY potassium potassium No potassium [place] chloride ER chloride ER chloride Communi 20 mEq 20 mEq ER 20 mEq ty tablet,exte tablet,exte tablet,ext Hospita nded nded ended l release release release Clinic s TAKE ONE TAKE ONE TAKE ONE TABLET BY TABLET BY TABLET BY MOUTH DAILY MOUTH DAILY MOUTH DAILY PreserVisio PreserVisio No PreserVisi [facility] AREDS-2 n AREDS-2 on AREDS-2 Communi ty [facility] simethicone simethicone No 1 TID simethicon [facility] 125 mg 125 mg e 125 mg Communi chewable chewable chewable ty tablet Take tablet Take tablet Hospita 1 tablet 3 1 tablet 3 Take 1 l times a day times a day tablet 3 Clinics by oral by oral times a route as route as day by needed. needed. oral route as needed. turmeric turmeric No turmeric Swe renee Communi ty [facility] amoxicillin amoxicillin No amoxicilli [facility] [phone] n 875 Communi mg-potassiu mg-potassiu mg-potassi ty [facility] clavulanate clavulanat l 125 mg 125 mg e 125 mg Clinics tablet tablet tablet cholecalcif cholecalcif No cholecalci [place] yarely yarely ferol Communi (vitamin (vitamin (vitamin ty D3) 1,250 D3) 1,250 D3) 1,250 Hospita mcg (50,000 mcg (50,000 mcg l unit) unit) (50,000 Clinics capsule capsule unit) TAKE 1 TAKE 1 capsule CAPSULE CAPSULE TAKE 1 EVERY WEEK EVERY WEEK CAPSULE EVERY WEEK famotidine famotidine No 1 Q1D famotidine [facility] 20 mg 20 mg 20 mg Communi tablet Take tablet Take tablet ty 1 tablet 1 tablet Take 1 Hospi ta every day every day tablet l by oral by oral every day Clin ics route for route for by oral 30 days. 30 days. route for 30 days. FeroSul 325 FeroSul 325 No FeroSul [facility] mg (65 mg mg (65 mg 325 mg (65 Communi iron) iron) mg iron) ty tablet tablet tablet [facility] Iron Iron No Iron [place] (ferrous (ferrous (ferrous Com maria r sulfate) sulfate) sulfate) ty BID with BID with BID with [facility] food food food [facility] levothyroxi levothyroxi No levothyrox [place] ne 25 mcg ne 25 mcg ine 25 mcg Communi tablet tablet tablet ty [facility] Macrobid Macrobid No 1capsul Q12H Macrobid [facility] 100 mg 100 mg e(s) 100 mg Communi capsule capsule capsule ty Take 1 Take 1 Take 1 Hospita capsule capsule capsule l every 12 every 12 every 12 Cli nics hours by hours by hours by oral route. oral route. oral route. metoprolol metoprolol No 1 Q1D metoprolol [facility] tartrate 25 tartrate 25 tartrate Communi mg tablet mg tablet 25 mg ty Take 1 Take 1 tablet Hospita tablet tablet Take 1 l every day every day tablet Cli nics by oral by oral every day route for route for by oral 30 days. 30 days. route for 30 days. voriconazol voriconazol No 1 Q1D voriconazo [facility] e 200 mg e 200 mg le 200 mg Co mmuni tablet Take tablet Take tablet ty 1 tablet 1 tablet Take 1 Hospi ta every day every day tablet l by oral by oral every day Clin ics route. route. by oral route. benzonatate benzonatate No benzonatat [facility] 100 mg 100 mg e 100 mg Communi capsule capsule capsule ty [facility] cholecalcif cholecalcif No 1capsul Q1W cholecalci [place] yarely yarely e(s) ferol Communi (vitamin (vitamin (vitamin ty D3) 1,250 D3) 1,250 D3) 1,250 Hospita mcg (50,000 mcg (50,000 mcg l unit) unit) (50,000 Clinics capsule capsule unit) Take 1 Take 1 capsule capsule capsule Take 1 every week every week capsule by oral by oral every week route for route for by oral 90 days. 90 days. route for 90 days. Immunizations Ordered Immunization Filled Immunization Date Status Commen ts Source Name Name zoster, unspecified zoster, unspecified 2019-10-30 Completed [facility] formulation formulation 00:00:00 [facility] zoster, unspecified zoster, unspecified 2019-10-30 Completed [facility] formulation formulation 00:00:00 [facility] Cli [facility] zoster, unspecified zoster, unspecified 2019-10-30 Completed [facility] formulation formulation 00:00:00 [facility] Cli nics zoster, unspecified zoster, unspecified 2019-10-30 Completed [facility] formulation formulation 00:00:00 [facility] Cli nics zoster, unspecified zoster, unspecified 2019-10-30 Completed [facility] formulation formulation 00:00:00 [facility] Cli nics zoster, unspecified zoster, unspecified 2019-10-30 Completed [facility] formulation formulation 00:00:00 [facility] Cli nics zoster, unspecified zoster, unspecified 2019-10-30 Completed [facility] formulation formulation 00:00:00 [facility] Cli nics zoster, unspecified zoster, unspecified 2019-10-30 Completed [facility] formulation formulation 00:00:00 [facility] Cli nics zoster, unspecified zoster, unspecified 2019-10-30 Completed [facility] formulation formulation 00:00:00 [facility] Cli nics zoster, unspecified zoster, unspecified 2019-10-30 Completed [facility] formulation formulation 00:00:00 [facility] Cli nics zoster, unspecified zoster, unspecified 2019-10-30 Completed [facility] formulation formulation 00:00:00 Hospital Cli nics zoster, unspecified zoster, unspecified 2019-10-30 Completed [facility] formulation formulation 00:00:00 [facility] Cli nics zoster, unspecified zoster, unspecified 2019-10-30 Completed [facility] formulation formulation 00:00:00 [facility] Cli nics zoster, unspecified zoster, unspecified 2019-10-30 Completed [facility] formulation formulation 00:00:00 Hospital Cli nics zoster, unspecified zoster, unspecified 2019-10-30 Completed [facility] formulation formulation 00:00:00 [facility] Cli nics zoster, unspecified zoster, unspecified 2019-10-30 Completed [facility] formulation formulation 00:00:00 [facility] Cli nics zoster, unspecified zoster, unspecified 2019-10-30 Completed [facility] formulation formulation 00:00:00 [facility] Cli nics zoster, unspecified zoster, unspecified 2019-10-30 Completed [facility] formulation formulation 00:00:00 [facility] Cli nics zoster, unspecified zoster, unspecified 2019-10-30 Completed [facility] formulation formulation 00:00:00 [facility] Cli nics zoster, unspecified zoster, unspecified 2019-10-30 Completed [facility] formulation formulation 00:00:00 [facility] Cli nics zoster, unspecified zoster, unspecified 2019-10-30 Completed [facility] formulation formulation 00:00:00 [facility] Cli nics zoster, unspecified zoster, unspecified 2019-10-30 Completed [facility] formulation formulation 00:00:00 [facility] Cli nics zoster, unspecified zoster, unspecified 2019-10-30 Completed [facility] formulation formulation 00:00:00 [facility] Cli nics zoster, unspecified zoster, unspecified 2019-10-30 Completed [facility] formulation formulation 00:00:00 [facility] Cli nics zoster, unspecified zoster, unspecified 2019-10-30 Completed [facility] formulation formulation 00:00:00 Hospital Cli nics Vital Signs Vital Name Observation Time Observation Value Comments Source BP Diastolic 2022-10-14 00:00:00 78 mm[Hg] [facility] Height 2022-10-14 00:00:00 63 [in_i] [facility] BMI (Body Mass 2022-10-14 00:00:00 27.2 kg/m2 [facility] BP Systolic 2022-10-14 00:00:00 128 mm[Hg] [facility] Body Weight 2022-10-14 00:00:00 2457.6 [oz_av] [facility] s BP Diastolic 2022-09-10 00:00:00 76 mm[Hg] [facility] Height 2022-09-10 00:00:00 63 [in_i] [facility] s BMI (Body Mass 2022-09-10 00:00:00 27.1 kg/m2 [facility] BP Systolic 2022-09-10 00:00:00 128 mm[Hg] [facility] Body Weight 2022-09-10 00:00:00 2448 [oz_av] [facility] s BP Diastolic 2022-08-20 00:00:00 65 mm[Hg] [facility] Height 2022-08-20 00:00:00 63 [in_i] [facility] s BMI (Body Mass 2022-08-20 00:00:00 26.8 kg/m2 [facility] s BP Systolic 2022-08-20 00:00:00 130 mm[Hg] [facility] Body Weight 2022-08-20 00:00:00 2419.2 [oz_av] [facility] BP Diastolic 2022-07-06 00:00:00 70 mm[Hg] [facility] Height 2022-07-06 00:00:00 63 [in_i] [facility] BMI (Body Mass 2022-07-06 00:00:00 29.9 kg/m2 [facility]) [facility] s BP Systolic 2022-07-06 00:00:00 140 mm[Hg] [facility] Body Weight 2022-07-06 00:00:00 2700.8 [oz_av] [facility] BP Diastolic 2022-06-04 00:00:00 60 mm[Hg] [facility] Height 2022-06-04 00:00:00 63 [in_i] [facility] BMI (Body Mass 2022-06-04 00:00:00 26.6 kg/m2 [facility] BP Systolic 2022-06-04 00:00:00 140 mm[Hg] [facility] Body Weight 2022-06-04 00:00:00 2400 [oz_av] [facility] BP Diastolic 2022-04-08 00:00:00 90 mm[Hg] [facility] Height 2022-04-08 00:00:00 63 [in_i] [facility] BMI (Body Mass 2022-04-08 00:00:00 26.3 kg/m2 [facility]) [facility] s BP Systolic 2022-04-08 00:00:00 170 mm[Hg] [facility] Body Weight 2022-04-08 00:00:00 2371.2 [oz_av] [facility] BP Diastolic 2022-04-01 00:00:00 80 mm[Hg] [facility] Height 2022-04-01 00:00:00 63 [in_i] [facility] s BMI (Body Mass 2022-04-01 00:00:00 25.8 kg/m2 [facility]) [facility] s BP Systolic 2022-04-01 00:00:00 150 mm[Hg] [facility] Body Weight 2022-04-01 00:00:00 2329.6 [oz_av] [facility] s WEIGHT 2022-03-09 08:58:00 66 kg WEIGHT 2022-03-05 [...] kg BP Diastolic 2022-02-04 00:00:00 70 mm[Hg] [facility] Height 2022-02-04 00:00:00 63 [in_i] [facility] BMI (Body Mass 2022-02-04 00:00:00 26.4 kg/m2 [facility]) [facility] s BP Systolic 2022-02-04 00:00:00 144 mm[Hg] [facility] Body Weight 2022-02-04 00:00:00 2384 [oz_av] [facility] WEIGHT 2022-01-17 04:00:00 72.8 kg WEIGHT 2022-01-15 20:00:00 69.4 kg HEIGHT 2022-01-15 20:00:00 160 cm WEIGHT 2022-01-17 04:00:00 72.8 kg WEIGHT 2022-01-15 20:00:00 69.4 kg HEIGHT 2022-01-15 20:00:00 160 cm BP Diastolic 2021-12-24 00:00:00 70 mm[Hg] [facility] Height 2021-12-24 00:00:00 63 [in_i] [facility] BMI (Body Mass 2021-12-24 00:00:00 28.4 kg/m2 [facility]) [facility] BP Systolic 2021-12-24 00:00:00 140 mm[Hg] [facility] Body Weight 2021-12-24 00:00:00 2569.6 [oz_av] [facility] s BP Diastolic 2021-11-12 00:00:00 70 mm[Hg] [facility] Height 2021-11-12 00:00:00 63 [in_i] [facility] BMI (Body Mass 2021-11-12 00:00:00 29.9 kg/m2 [facility]) [facility] s BP Systolic 2021-11-12 00:00:00 130 mm[Hg] [facility] Body Weight 2021-11-12 00:00:00 2704 [oz_av] [facility] BP Diastolic 2021-08-12 00:00:00 72 mm[Hg] [facility] Height 2021-08-12 00:00:00 63 [in_i] [facility] BMI (Body Mass 2021-08-12 00:00:00 31.5 kg/m2 [facility]) [facility] s BP Systolic 2021-08-12 00:00:00 110 mm[Hg] [facility] Body Weight 2021-08-12 00:00:00 2848 [oz_av] [facility] BP Diastolic 2021-08-05 00:00:00 70 mm[Hg] [facility] Height 2021-08-05 00:00:00 63 [in_i] [facility] BMI (Body Mass 2021-08-05 00:00:00 31.6 kg/m2 [facility] s BP Systolic 2021-08-05 00:00:00 115 mm[Hg] [facility] Body Weight 2021-08-05 00:00:00 2857.6 [oz_av] [facility] s BP Diastolic 2021-07-15 00:00:00 78 mm[Hg] [facility] Height 2021-07-15 00:00:00 63 [in_i] [facility] BMI (Body Mass 2021-07-15 00:00:00 31.6 kg/m2 [facility] s BP Systolic 2021-07-15 00:00:00 120 mm[Hg] [facility] Body Weight 2021-07-15 00:00:00 2854.4 [oz_av] [facility] s BP Diastolic 2021-07-03 00:00:00 74 mm[Hg] [facility] Height 2021-07-03 00:00:00 63 [in_i] [facility] BMI (Body Mass 2021-07-03 00:00:00 [facility] BP Systolic 2021-07-03 00:00:00 145 mm[Hg] [facility] Body Weight 2021-07-03 00:00:00 178.4 [lb_av] [facility] BP Diastolic 2021-06-24 00:00:00 70 mm[Hg] [facility] Height 2021-06-24 00:00:00 63 [in_i] [facility] BMI (Body Mass 2021-06-24 00:00:00 32.1 kg/m2 [facility] BP Systolic 2021-06-24 00:00:00 120 mm[Hg] [facility] Body Weight 2021-06-24 00:00:00 2896 [oz_av] [facility] BP Diastolic 2021-06-02 00:00:00 75 mm[Hg] [facility] Height 2021-06-02 00:00:00 63 [in_i] [facility] BMI (Body Mass 2021-06-02 00:00:00 32.2 kg/m2 [facility]) [facility] BP Systolic 2021-06-02 00:00:00 130 mm[Hg] [facility] Body Weight 2021-06-02 00:00:00 182 [lb_av[facility] BP Diastolic 2021-04-09 00:00:00 80 mm[Hg] [facility] Height 2021-04-09 00:00:00 63 [in_i] [facility] BMI (Body Mass 2021-04-09 00:00:00 32.5 kg/m2 [facility] BP Systolic 2021-04-09 00:00:00 130 mm[Hg] [facility] Body Weight 2021-04-09 00:00:00 2934.4 [oz_av] [facility] s BP Diastolic 2021-02-13 00:00:00 80 mm[Hg] [facility] Height 2021-02-13 00:00:00 63 [in_i] [facility] BMI (Body Mass 2021-02-13 00:00:00 32.7 kg/m2 [facility] BP Systolic 2021-02-13 00:00:00 115 mm[Hg] [facility] Body Weight 2021-02-13 00:00:00 2956.8 [oz_av] [facility] BP Diastolic 2021-01-23 00:00:00 70 mm[Hg] [facility] Height 2021-01-23 00:00:00 63 [in_i] [facility] BP Systolic 2021-01-23 00:00:00 130 mm[Hg] [facility] BP Diastolic 2020-12-23 00:00:00 70 mm[Hg] [facility] Height 2020-12-23 00:00:00 63 [in_i] [facility] BMI (Body Mass 2020-12-23 00:00:00 32.7 kg/m2 [facility]) [facility] BP Systolic 2020-12-23 00:00:00 121 mm[Hg] [facility] Body Weight 2020-12-23 00:00:00 2956.8 [oz_av] [facility] s BP Diastolic 2020-08-29 00:00:00 62 mm[Hg] [facility] Height 2020-08-29 00:00:00 64 [in_i] [facility] BMI (Body Mass 2020-08-29 00:00:00 31.9 kg/m2 [facility] BP Systolic 2020-08-29 00:00:00 130 mm[Hg] [facility] Body Weight 2020-08-29 00:00:00 2972.8 [oz_av] [facility] s BP Diastolic 2020-06-19 00:00:00 82 mm[Hg] [facility] Height 2020-06-19 00:00:00 64 [in_i] [facility] BMI (Body Mass 2020-06-19 00:00:00 33 kg/m2 [facility] BP Systolic 2020-06-19 00:00:00 126 mm[Hg] [facility] Body Weight 2020-06-19 00:00:00 3075.2 [oz_av] [facility] Systolic blood 2020-03-07 14:53:00 130 mm[Hg] [facility] Diastolic blood 2020-03-07 14:53:00 77 mm[Hg] [facility] Heart rate 2020-03-07 14:53:00 91 /min [facility] Body height 2020-03-07 14:50:00 162.6 cm [facility] Body weight 2020-03-07 14:50:00 88.905 kg [facility] BMI 2020-03-07 14:50:00 33.64 kg/m2 [facility] Systolic blood 2020-03-07 14:53:00 130 mm[Hg] [facility] Diastolic blood 2020-03-07 14:53:00 77 mm[Hg] [facility] pressure [facility] Heart rate 2020-03-07 14:53:00 91 /min [facility] Body height 2020-03-07 14:50:00 162.6 cm [facility] Body weight 2020-03-07 14:50:00 88.905 kg [facility] BMI 2020-03-07 14:50:00 33.64 kg/m2 [facility] Systolic blood 2020-01-22 19:52:00 134 mm[Hg] [facility] Diastolic blood 2020-01-22 19:52:00 76 mm[Hg] [facility] Heart rate 2020-01-22 19:52:00 73 /min [facility] Body height 2020-01-22 19:52:00 160 cm [facility] Body weight 2020-01-22 19:52:00 84.823 kg [facility] BMI 2020-01-22 19:52:00 33.13 kg/m2 [facility] Systolic blood 2022-03-09 11:33:00 166 mm[Hg] [facility] Diastolic blood 2022-03-09 11:33:00 88 mm[Hg] [facility] Heart rate 2022-03-09 11:33:00 90 /min [facility] Respiratory rate 2022-03-09 11:33:00 15 /min [facility] Oxygen saturation in 2022-03-09 11:33:00 100 /min [facility] Arterial blood by Medical Ce nter Pulse oximetry Body temperature 2022-03-09 08:58:00 36.5 Rhonda [facility] Body weight 2022-03-09 08:58:00 66 kg [facility] BMI 2022-03-09 08:58:00 25.77 kg/m2 [facility] Body height 2022-03-01 14:11:00 160 cm [facility] Diastolic blood 2022-02-16 15:21:00 80 mm[Hg] [facility] pressure Body temperature 2022-02-16 15:21:00 36 Rhonda [facility] Body weight 2022-02-16 15:21:00 68.493 kg [facility] BMI 2022-02-16 15:21:00 26.75 kg/m2 [facility] Systolic blood 2022-02-16 15:21:00 140 mm[Hg] Method [facility] pressure Heart rate 2022-02-10 15:35:00 77 /min [facility] Respiratory rate 2022-02-10 15:35:00 16 /min [facility] Oxygen saturation in 2022-02-10 15:35:00 96 /min [facility] Arterial blood by Pulse oximetry Body height 2022-02-10 13:18:00 160 cm [facility] Systolic blood 2021-11-27 16:12:00 124 mm[Hg] Method [facility] pressure Diastolic blood 2021-11-27 16:12:00 76 mm[Hg] [facility] pressure Heart rate 2021-11-27 16:12:00 105 /min [facility] Body temperature 2021-11-27 16:12:00 36.61 Rhonda [facility] Body height 2021-11-27 16:12:00 160 cm [facility] Body weight 2021-11-27 16:12:00 75.751 kg [facility] BMI 2021-11-27 16:12:00 29.58 kg/m2 [facility] Oxygen saturation in 2021-11-27 16:12:00 100 /min [facility] Arterial blood by Pulse oximetry Respiratory rate 2021-11-24 15:00:00 19 /min [facility] Procedures Procedure Date / Time Performing Source Performed Clinician CT, head, w/o contrast 2022-04-01 [facility] 00:00:00 [facility] XR CHEST 1 VIEW PORTABLE / BEDSIDE 2022-03-09 Sarah Saul [address] [facility] 12:00:00 [facility] POCT-GLUCOSE METER 2022-03-09 Royce, Kiya [facility] 11:53:00 [facility] XR CHEST 1 VIEW PORTABLE / BEDSIDE 2022-03-09 Sarah Saul hryn [facility] 07:14:00 [facility] POCT-GLUCOSE METER 2022-03-09 Royce, Kiya [facility] 07:07:00 [facility] CBC W/PLT COUNT & AUTO 2022-03-09 Glonicolle, Isela [facility] DIFFERENTIAL 05:17:00 [facility] BASIC METABOLIC PANEL 2022-03-09 Dorys, [facility]ela [facility] 05:17:00 [facility] MAGNESIUM 2022-03-09 Glonicolle, Isela [facility] 05:17:00 [facility] PHOSPHORUS 2022-03-09 Glomockpenny, Isela [facility] 05:17:00 [facility] CBC W/PLT COUNT & AUTO 2022-03-09 Bethanyckpenny, Isela [facility] DIFFERENTIAL 05:17:00 [facility] POCT-GLUCOSE METER 2022-03-08 Royce, Kiya [facility] 21:32:00 [facility] HISTOPLASMA ANTIGEN, URINE 2022-03-[address] [facility] 18:26:00 [facility] POCT-GLUCOSE METER 2022-03-08 Royce, Kiya [facility] 16:35:00 [facility] CRYPTOCOCCAL ANTIGEN 2022-03-[address] [facility] 15:26:00 [facility] POCT-GLUCOSE METER 2022-03-[address] [facility] 11:08:[address] [facility] CT BRAIN WITHOUT IV CONTRAST 2022-03-[address] [facility] 10:03:00 [facility] XR CHEST 1 VIEW PORTABLE / BEDSIDE 2022-03-08 Glonicolle Sarah hryn [facility] 06:37:00 [facility] CBC W/PLT COUNT & AUTO 2022-03-08 Glowackpenny, Isela [facility] DIFFERENTIAL 04:13:00 [facility] BASIC METABOLIC PANEL 2022-03-08 Glonicolle, [facility]ela [facility] 04:13:00 [facility] MAGNESIUM 2022-03-[address] [facility] 04:13:00 [facility] PHOSPHORUS 2022-03-[address] [facility] 04:13:00 [facility] CBC W/PLT COUNT & AUTO 2022-03-08 Glowaanahi, Isela [facility] DIFFERENTIAL 04:13:00 [facility] PREPARE RBC 2022-03-[address] [facility] 23:54:00 [facility] XR CHEST 1 VIEW PORTABLE / BEDSIDE 2022-03-07 Glonicolle Sarah hryn [facility] 07:06:00 [facility] CBC W/PLT COUNT & AUTO 2022-03-07 Glonicolle, Isela [facility] DIFFERENTIAL 05:31:00 [facility] BASIC METABOLIC PANEL 2022-03-07 Glowacki, Isela [facility] 05:31:00 [facility] MAGNESIUM 2022-03-07 Glowackpenny, Isela [facility] 05:31:00 [facility] PHOSPHORUS 2022-03-07 Glowacki, Isela [facility] 05:31:00 [facility] CBC W/PLT COUNT & AUTO 2022-03-[address] [facility] DIFFER[facility] 05:31:00 [facility] POCT-GLUCOSE METER 2022-03-07 Royce, Kiya [facility] 00:02:00 [facility] PREPARE RBC 2022-03-[address] [facility] 23:55:00 [facility] CBC (HEMOGRAM ONLY) 2022-03-06 Nott, Tory [facility] 16:45:00 [facility] POCT-GLUCOSE METER 2022-03-06 Royce, Kiya [facility] 12:22:00 [facility] TRANSFUSE LEUKO-REDUCED RED BLOOD 2022-03-06 Nott, Roxanne ryan [facility] CELLS 11:01:00 [facility] POCT-GLUCOSE METER 2022-03-06 Royce, Kiya [facility] 08:10:00 [facility] TYPE AND SCREEN, AUTOMATED 2022-03-06 Nott[facility] 08:10:00 [facility] CBC W/PLT COUNT & AUTO 2022-03-[address] [facility] DIFFERENTIAL 04:12:00 [facility] BASIC METABOLIC PANEL 2022-03-[address] [facility] 04:12:00 [facility] MAGNESIUM 2022-03-[address] [facility] 04:12:00 [facility] PHOSPHORUS 2022-03-[address] [facility] 04:12:00 [facility] CBC W/PLT COUNT & AUTO 2022-03-[address] [facility] 04:12:00 [facility] XR CHEST 1 VIEW PORTABLE / BEDSIDE 2022-03-[address] [facility] 03:50:00 [facility] POCT-GLUCOSE METER 2022-03-05 Royce, Kiya [facility] 22:46:00 [facility] POCT-GLUCOSE METER 2022-03-05 Royce, Kiya [facility] 17:02:00 [facility] POCT-GLUCOSE METER 2022-03-05 Royce, Kiya [facility] 11:04:00 [facility] POCT-GLUCOSE METER 2022-03-[address] [facility] 08:05:00 [facility] CBC W/PLT COUNT & AUTO 2022-03-[address] [facility] DIFFERENTIAL 03:34:00 [facility] CBC W/PLT COUNT & AUTO 2022-03-[address] [facility] 03:34:00 [facility] XR CHEST 1 VIEW PORTABLE / BEDSIDE 2022-03-05 Sarah Saul hryn [facility] 03:22:00 [facility] BASIC METABOLIC PANEL 2022-03-[address] [facility] 01:02:00 [facility] MAGNESIUM 2022-03-[address] [facility] 01:02:00 [facility] PHOSPHORUS 2022-03-[address] [facility] 01:02:00 [facility] PREPARE RBC 2022-03-04 Royce, Kiya [facility] 23:55:00 [facility] POCT-GLUCOSE METER 2022-03-04 Royce, Kiya [facility] 21:58:00 [facility] POCT-GLUCOSE METER 2022-03-04 Royce, Kiya [facility] 16:00:00 [facility] POCT-GLUCOSE METER 2022-03-04 Royce, Kiya [facility] 13:30:00 [facility] POCT-GLUCOSE METER 2022-03-04 Tricia-Lety, Sung [facility] 06:30:00 In [facility] BLOOD GAS, ARTERIAL 2022-03-04 Vianca, Shira [facility] 05:01:00 [facility] POCT-GLUCOSE METER 2022-03-04 Tricia-Lety, Sung [facility] 03:43:00 In [facility] BLOOD GAS, ARTERIAL 2022-03-04 Vianca, Shira [facility] 02:27:00 [facility] CBC W/PLT COUNT & AUTO 2022-03-[address] [facility] DIFFERENTIAL 02:24:00 [facility] BASIC METABOLIC PANEL 2022-03-[address] [facility] 02:24:00 [facility] MAGNESIUM 2022-03-04 Glowacki, Isela [facility] 02:24:00 [facility] PHOSPHORUS 2022-03-04 Glowacki, Isela [facility] 02:24:00 [facility] LACTIC ACID, ARTERIAL 2022-03-[address] [facility] 02:24:00 [facility] THROMBOELASTOGRAPH (TEG) 2022-03-[address] [facility] 02:24:00 [facility] CBC W/PLT COUNT & AUTO 2022-03-04 TriciaLety, Maurice [facility] 02:24:00 In [facility] (CELLAVISION MANUAL DIFF) 2022-03-04 [facility]ina [facility] 02:24:00 In [facility] XR CHEST 1 VIEW PORTABLE / BEDSIDE 2022-03-[address] [facility] 02:09:00 [facility] TRANSFUSE LEUKO-REDUCED RED BLOOD 2022-03-[address] [facility] CELL[facility] 23:50:00 [facility] RRL CRITICAL LABS 2022-03-[address] [facility] (ABG,NA,K,H&H,GLUCOSE) 23:39:09 [facility] enter CALCIUM, IONIZED 2022-03-[address] [facility] 23:39:09 [facility] BLOOD GAS, ARTERIAL 2022-03-[address] [facility] 23:39:09 [facility] SODIUM NA-STAT LAB 2022-03-[address] [facility] 23:39:09 [facility] POTASSIUM-STAT LAB 2022-03-[address] [facility] 23:39:09 [facility] GLUCOSE-STAT LAB 2022-03-[address] [facility] 23:39:09 [facility] HGB/HCT (H&H) - STAT LAB 2022-03-[address] [facility] 23:39:09 [facility] TRANSFUSE LEUKO-REDUCED RED BLOOD 2022-03-[address] [facility] 23:39:00 [facility] FUNGUS CULTURE + SMEAR 2022-03-[address] [facility] 23:11:00 [facility] SURGICALLY OBTAINED CULTURE + GRAM 2022-03-03 Royce, [facility] STAIN 23:11:00 [facility] ANAEROBIC CULTURE 2022-03-03 Royce, Kiya [facility] 23:11:00 [facility] AFB CULTURE + SMEAR (NON-SPUTUM) 2022-03-[address] [facility] 23:11:00 [facility] SPIN/CONCENTRATION CHARGE 2022-03-[address] [facility] 23:11:00 [facility] RRL CRITICAL LABS 2022-03-[address] [facility] (ABG,NA,K,H&H,GLUCOSE) 22:43:18 [facility] enter BLOOD GAS, ARTERIAL 2022-03-[address] [facility] 22:43:18 [facility] SODIUM NA-STAT LAB 2022-03-[address] [facility] 22:43:18 [facility] POTASSIUM-STAT LAB 2022-03-[address] [facility] 22:43:18 [facility] GLUCOSE-STAT LAB 2022-03-[address] [facility] 22:43:18 [facility] HGB/HCT (H&H) - STAT LAB 2022-03-[address] [facility] 22:43:18 [facility] FUNGUS CULTURE + SMEAR 2022-03-[address] [facility] 21:49:00 [facility] SURGICALLY OBTAINED CULTURE + GRAM 2022-03-[address] [facility] STAIN 21:49:00 [facility] ANAEROBIC CULTURE 2022-03-03 Royce, Kiya [facility] 21:49:00 [facility] AFB CULTURE + SMEAR (NON-SPUTUM) 2022-03-[address] [facility] 21:49:00 [facility] FUNGUS CULTURE + SMEAR 2022-03-03 Royce, [facility]ya [facility] 21:43:00 [facility] SURGICALLY OBTAINED CULTURE + GRAM 2022-03-[address] [facility] STAIN 21:43:00 [facility] ANAEROBIC CULTURE 2022-03-03 Royce, Kiya [facility] 21:43:00 [facility] AFB CULTURE + SMEAR (NON-SPUTUM) 2022-03-03 Royce, Kiya [facility] 21:43:00 [facility] FUNGUS CULTURE + SMEAR 2022-03-03 Royce, [facility] 21:28:00 [facility] BODY FLUID CULTURE + GRAM STAIN 2022-03-03 Royce, [facility]ya [facility] 21:28:00 [facility] ANAEROBIC CULTURE 2022-03-03 Royce, [facility]ya [facility] 21:28:00 [facility] AFB CULTURE + SMEAR (NON-SPUTUM) 2022-03-[address] [facility] 21:28:00 [facility] SPIN/CONCENTRATION CHARGE 2022-03-[address] [facility] 21:28:00 [facility] CYTOLOGY 2022-03-03 Royce, [facility]ya [facility] 21:19:00 [facility] CYTOLOGY REQUEST 2022-03-[address] [facility] 21:19:00 [facility] TISSUE EXAM 2022-03-[address] [facility] 20:33:00 [facility] THORACOSCOPY (VATS) 2022-03-[address] [facility] 19:33:00 [facility] LAPAROSCOPY, DIAGNOSTIC 2022-03-[address] [facility] 19:33:00 [facility] EGD (ESOPHAGOGASTRODUODENOSCOPY) 2022-03-[address] [facility] 19:33:00 [facility] BRONCHOSCOPY 2022-03-[address] [facility] 19:33:00 [facility] THORACOTOMY 2022-03-[address] [facility] 19:33:00 [facility] CBC W/PLT COUNT & AUTO 2022-03-03 Glowacki, Isela [facility] DIFFERENTIAL 04:19:00 [facility] BASIC METABOLIC PANEL 2022-03-[address] [facility] 04:19:00 [facility] MAGNESIUM 2022-03-[address] [facility] 04:19:00 [facility] HEPATIC FUNCTION PANEL 2022-03-03 Tricia-Maira Davidsong [facility] 04:19:00 In [facility] CBC W/PLT COUNT & AUTO 2022-03-03 Tricia-Lety, Maurice [facility] 04:19:00 In [facility] PT/APTT 2022-03-[address] [facility] 10:57:00 [facility] PREALBUMIN 2022-03-[address] [facility] 04:13:00 [facility] CBC (HEMOGRAM ONLY) 2022-03-[address] [facility] 04:13:00 [facility] COMPREHENSIVE METABOLIC PANEL 2022-03-[address] [facility] 04:13:00 [facility] ABORH, MANUAL 2022-03-[address] [facility] 04:13:00 [facility] TYPE AND SCREEN, AUTOMATED 2022-03-[address] [facility] 00:53:00 [facility] SARS-COV2/RT-PCR ([facility] RE[facility]) 2022-03-[address] [facility] 21:09:[address] [facility] [address] CHEST WITH IV CONTRAST 2022-03-[address] [facility] 17:27:00 [facility] WOUND CULTURE + GRAM STAIN 2022-03-01 Higinio Miguel [facility] 15:40:00 [facility] CBC W/PLT COUNT & AUTO 2022-03-[address] [facility] DIFFER[facility] 15:38:00 [facility] COMPREHENSIVE METABOLIC PANEL 2022-03-01 Alejandra To[facility] 15:38:00 [facility] LACTIC ACID, VENOUS 2022-03-01 Alejandra, Toña [facility] 15:38:00 [facility] CBC W/PLT COUNT & AUTO 2022-03-01 Toña Roberts [facility] DIFFERENTIAL 15:38:00 [facility] XR CHEST 2 VIEWS 2022-03-[address] [facility] 14:59:00 [facility] FIBRINOGEN 2022-02-16 Sloan Gomes 16:57:00 [facility] ALPHA FETOPROTEIN 2022-02-16 Sloan Gomes 16:57:00 [facility] CARCINOEMBRYONIC ANTIGEN (CEA) 2022-02-16 Sloan Gomes 16:57:00 [facility] INTERLEUKIN 2 RECEPTOR 2022-02-16 Sloan Gomes t 16:57:00 [facility] TRIGLYCERIDES 2022-02-16 Sloan Gomes 16:57:00 [facility] VITAMIN B12 LEVEL 2022-02-16 Sloan Gomes 16:57:00 [facility] FOLATE LEVEL 2022-02-16 Sloan Gomes 16:57:00 [facility] FERRITIN LEVEL 2022-02-16 Sloan Gomes 16:57:00 [facility] COMPREHENSIVE METABOLIC PANEL 2022-02-16 Sloan Gomes ethodi 16:57:00 [facility] CBC WITH PLATELET AND DIFFERENTIAL 2022-02-16 Luann Gomes 16:57:00 [facility] LDH 2022-02-16 Sloan Gomes 16:57:00 [facility] CANCER ANTIGEN 125 2022-02-16 Sloan Gomes 16:57:00 [facility] ESTIMATED GFR 2022-02-16 Sloan Gomes 16:57:00 [facility] SURGICAL PATHOLOGY REQUEST 2022-02-10 Sloan Gomes oddona 16:18:00 [facility] CYTOLOGY (NON-GYNECOLOGICAL) 2022-02-10 Sloan Gomes thodist REQUEST 16:15:00 [facility] US LIVER BIOPSY 2022-02-10 Sloan Gomes 15:00:00 [facility] ANAEROBIC CULTURE 2022-02-10 Sloan Goems 14:15:00 [facility] FUNGUS CULTURE 2022-02-10 Sloan Gomes 14:15:00 [facility] AEROBIC CULTURE 2022-02-10 Sloan Gomes 14:15:00 [facility] AFB CULTURE 2022-02-10 Sloan Gomes 14:15:00 [facility] GRAM STAIN 2022-02-10 Sloan Gomes 14:15:00 [facility] AFB STAIN 2022-02-10 Sloan Gomes 14:15:00 [facility] CBC WITH PLATELET AND DIFFERENTIAL 2022-02-06 Eliseo, And tania [facility] 20:21:00 [facility] CBC WITH PLATELET AND DIFFERENTIAL 2022-02-06 [facility] tania [facility] 20:21:00 [facility] COMPREHENSIVE METABOLIC PANEL 2022-02-06 Eliseo, Sloan Lewis ethodist 20:21:00 [facility] PROTHROMBIN TIME WITH INR 2022-02-06 Eliseo, Sloan Metho dist 20:21:00 [facility] PARTIAL THROMBOPLASTIN TIME (PTT) 2022-02-06 Eliseo, Andr ew [facility] 20:21:00 [facility] ESTIMATED GFR 2022-02-06 Sloan Gomes 20:21:00 [facility] MANUAL DIFFERENTIAL 2022-02-06 Sloan Gomes 20:21:00 [facility] CYTOLOGY 2022-01-28 Shamsee, [facility] 09:41:00 [facility] CBC W/PLT COUNT & AUTO 2022-01-24 Ibeche, Bashar [facility] 03:56:00 [facility] COMPREHENSIVE METABOLIC PANEL 2022-01-24 Ibeche[facility] 03:56:00 [facility] CBC W/PLT COUNT & AUTO 2022-01-24 Ibeche, Bashar [facility] 03:56:00 [facility] 2D ECHO W/ DOPPLER (CW/PW/COLOR) 2022-01-[address] [facility] 15:01:42 [facility] CBC W/PLT COUNT & AUTO 2022-01-23 Ibeche, Bashar [facility] 04:20:00 [facility] COMPREHENSIVE METABOLIC PANEL 2022-01-23 Ibeche, [facility] 04:20:00 [facility] CBC W/PLT COUNT & AUTO 2022-01-23 Ibeche, Bashar [facility] 04:20:00 [facility] CBC W/PLT COUNT & AUTO 2022-01-22 Ibeche, Ligia [facility] 04:27:00 [facility] COMPREHENSIVE METABOLIC PANEL 2022-01-22 Ibeche, [facility] 04:27:00 [facility] CBC W/PLT COUNT & AUTO 2022-01-22 Ibeche, Ligia [facility] 04:27:00 [facility] CT CHEST WITH IV CONTRAST 2022-01-[address] [facility] 20:43:00 [facility] CBC W/PLT COUNT & AUTO 2022-01-21 Ibeche, Ligia [facility] 04:20:00 [facility] COMPREHENSIVE METABOLIC PANEL 2022-01-21 Ibeche, [facility] 04:20:00 [facility] CBC W/PLT COUNT & AUTO 2022-01-21 Ibeche, Ligia [facility] 04:20:00 [facility] XR CHEST 1 VIEW PORTABLE / BEDSIDE 2022-01-21 Ibeche, Rileyha r [facility] 00:10:00 [facility] CBC W/PLT COUNT & AUTO 2022-01-20 Ibeche, Ligia [facility] 03:46:00 [facility] COMPREHENSIVE METABOLIC PANEL 2022-01-20 Ibeche, Bashar [facility] 03:46:00 [facility] CBC W/PLT COUNT & AUTO 2022-01-20 Ibeche, Ligia [facility] 03:46:00 [facility] XR CHEST 1 VIEW PORTABLE / BEDSIDE 2022-01-20 Ibeche, Basha r [facility] 00:05:00 [facility] Insertion of Pleural Tube Drain 2022-01-20 [facility] 00:00:00 [facility] COMPREHENSIVE METABOLIC PANEL 2022-01-19 Ibeche, [facility]ar [facility] 03:35:00 [facility] CBC W/PLT COUNT & AUTO 2022-01-19 Ibeche[facility]ar [facility] 03:35:00 [facility] CBC W/PLT COUNT & AUTO 2022-01-19 Ibeche, Bashar [facility] 03:35:00 [facility] XR CHEST 1 VIEW PORTABLE / BEDSIDE 2022-01-19 Ibeche, Rileyha r [facility] 00:05:00 [facility] CBC W/PLT COUNT & AUTO 2022-01-18 Ibeche, Basjamilah [facility] 04:58:00 [facility] COMPREHENSIVE METABOLIC PANEL 2022-01-18 Ibeche, [facility]ar [facility] 04:58:00 [facility] IRON, TIBC, % SAT. (WITHOUT 2022-01-18 Ibeche, Bashar [facility] FERRITIN) 04:58:00 [facility] VITAMIN B12 2022-01-18 Ibeche, Bashar [facility] 04:58:00 [facility] CBC W/PLT COUNT & AUTO 2022-01-18 Ibeche, Bashar [facility] 04:58:00 [facility] CBC W/PLT COUNT & AUTO 2022-01-17 Ibeche, Bashar [facility] 04:47:00 [facility] COMPREHENSIVE METABOLIC PANEL 2022-01-17 Ibeche, Rileyhar [facility] 04:47:00 [facility] CBC W/PLT COUNT & AUTO 2022-01-17 Ibeche, Ligia [facility] 04:47:00 [facility] XR CHEST 1 VIEW PORTABLE / BEDSIDE 2022-01-[address] [facility] 01:12:00 [facility] XR CHEST 1 VIEW PORTABLE / BEDSIDE 2022-01-15 [facility], Zane sima [facility] 15:30:00 [facility] THORACOSCOPY (VATS),LUNG BIOPSY 2022-01-15 [facility], Cecil [facility] 13:33:00 [facility] URINALYSIS W/ MICROSCOPIC 2022-01-15 [facility] 10:40:00 [facility] XR CHEST 1 VIEW PORTABLE / BEDSIDE 2022-01-15 [facility], Zane sima [facility] 09:05:00 [facility] COVID ANTIGEN 2022-01-15 [facility] [place] [facility] 08:54:00 [facility] PT/APTT 2022-01-15 [facility] [place] [facility] 08:53:00 [facility] TISSUE EXAM 2022-01-15 [facility] [place] [facility] 08:00:00 [facility] CBC W/PLT COUNT & AUTO 2022-01-15 [facility] [place] [facility] DIFFER[facility] 05:45:00 [facility] BASIC METABOLIC PANEL 2022-01-15 Delacruz, Cecil [facility] 05:45:00 [facility] CBC W/PLT COUNT & AUTO 2022-01-15 [facility] [place] [facility] DIFFERENTIAL 05:45:00 [facility] Limited Thoracotomy 2022-01-15 [facility] 00[facility]00 [facility] POTASSIUM 2022-01-14 Delacruz, Cecil [facility] 10:30:00 [facility] CBC W/PLT COUNT & AUTO 2022-01-14 [facility] [place] [facility] DIFFER[facility] 03:30:00 [facility] COMPREHENSIVE METABOLIC PANEL 2022-01-14 Delacruz, [facility] 03:30:00 [facility] CBC W/PLT COUNT & AUTO 2022-01-14 [facility] [place] [facility] DIFFER[facility] 03:30:00 [facility] CBC W/PLT COUNT & AUTO 2022-01-[address] [facility] 03:42:00 [facility] BASIC METABOLIC PANEL 2022-01-[address] [facility] 03:42:00 [facility] CBC W/PLT COUNT & AUTO 2022-01-[address] [facility] DIFFERENTIAL 03:42:00 [facility] URINALYSIS W/ MICROSCOPIC 2022-01-12 [facility], [facility] 15[facility]45:00 [facility] XR CHEST 1 VIEW PORTABLE / BEDSIDE 2022-01-12 [facility], Zane sima [facility] 14:20:00 [facility] SARS-COV2/RT-PCR ([facility]) 2022-01-12 [facility], Zane sima [facility] 13:00:00 [facility] PT/APTT 2022-01-12 [facility], Cecil [facility] 13:00:00 [facility] ABORH, MANUAL 2022-01-[address] [facility] 13:00:00 [facility] TYPE AND SCREEN, AUTOMATED 2022-01-12 Torres, Risheng [facility] 10:33:00 [facility] BASIC METABOLIC PANEL 2022-01-11 Delacruz, Cecil [facility] 05:10:00 [facility] CBC (HEMOGRAM ONLY) 2022-01-11 Delacruz, Cecil [facility] 05:10:00 [facility] BASIC METABOLIC PANEL 2022-01-10 Wilner Burt Scotty [facility] 03:55:00 [facility] CBC W/PLT COUNT & AUTO 2022-01-[address] [facility] DIFFERENTIAL 03:55:00 [facility] CBC W/PLT COUNT & AUTO 2022-01-[address] [facility] DIFFERENTIAL 03:55:00 [facility] XR CHEST 1 VIEW PORTABLE / BEDSIDE 2022-01-10 Alam, Ariffin [facility] 00:08:00 [facility] VANCOMYCIN LEVEL, RANDOM 2022-01-[address] [facility] 22:30:[address] [facility] [address] DRAINAGE WITH CHEST TUBE 2022-01-09 Ibeche, Bashar [facility] INSERTION 11:30:00 [facility] PT/APTT 2022-01-09 Alam, Ariffin [facility] 03:30:00 [facility] BASIC METABOLIC PANEL 2022-01-09 Alam, Ariffin [facility] 03:30:00 [facility] CBC W/PLT COUNT & AUTO 2022-01-09 Alam, Ariffin [facility] DIFFERENTIAL 03:30:00 [facility] CBC W/PLT COUNT & AUTO 2022-01-09 Alam, Ariffin [facility] DIFFERENTIAL 03:30:00 [facility] CT BRAIN WITHOUT IV CONTRAST 2022-01-[address] [facility] 10:48:00 [facility] WHITE BLOOD CELL COUNT 2022-01-[address] [facility] 04:05:00 [facility] BASIC METABOLIC PANEL 2022-01-[address] [facility] 04:05:00 [facility] FERRITIN 2022-01-[address] [facility] 04:05:00 [facility] XR CHEST 1 VIEW PORTABLE / BEDSIDE 2022-01-[address] [facility] 00:50:00 [facility] XR CHEST 1 VIEW PORTABLE / BEDSIDE 2022-01-[address] [facility] 09:50:00 Medical Center US THORACENTESIS 2022-01-[address] [facility] 09:36:00 Medical Center BODY FLUID CELL COUNT WITH 2022-01-07 Shamsee, [facility] DIFFERENTIAL 09:31:00 [facility] LIPID PANEL 2022-01-07 Shamsee, [facility] 05:20:00 [facility] TSH 2022-01-07 Shamsee, [facility] 05:20[facility]00 [facility] FREE 2022-01-07 Shamsee, [facility] 05:20:00 [facility] TROPONIN I 2022-01-07 Shamsee, [facility] 05:20:00 [facility] COMPREHENSIVE METABOLIC PANEL 2022-01-07 Shamsee, [facility] 05:20:00 [facility] PHOSPHORUS 2022-01-07 Shamsee, [facility] 05:20:00 [facility] MAGNESIUM 2022-01-07 Shamsee, [facility] 05:20:00 [facility] B-TYPE NATRIURETIC FACTOR (BNP) 2022-01-07 Shamsee, [facility] 05:20:00 [facility] W/PLT COUNT & AUTO 2022-01-07 Shamsee, [facility] DIFFER[facility] 05:20[facility]00 [facility] PROT[facility] TIME/INR 2022-01-07 Shamsee, [facility]:20[facility]00 [facility] W/[facility]T COUNT & AUTO 2022-01-07 [facility] 05:20[facility]00 [facility] ([facility]) 2022-01-07 Shamsee, [facility] 05:20:00 [facility] XR CHEST 1 VIEW PORTABLE / BEDSIDE 2022-01-[address] [facility] 01:10:00 [facility] Thoracentesis 2022-01-07 [facility] 00:00:00 Hospital Clinics TROPONIN I 2022-01-[address] [facility] 23:14:00 Medical Center PERMANENT LAB REPORT - SCAN 2021-12-28 Provider, Default [facility] EKG-SCANNED 2021-12-28 Provider, Default [facility] 00:00:00 [facility] MAMMO, screening, digital, 2021-12-24 [facility] bilateral 00:00:[address] SKULL BASE TO MID THIGH 2021-12-18 Sloan Gomes 17:26:47 [facility] POC GLUCOSE 2021-12-18 Sloan Gomes 15:43:00 [facility] ESOPHAGOGASTRODUODENOSCOPY (EGD) 2021-11-24 Curtis Pabon 13:46:00 [facility] COLONOSCOPY 2021-11-24 Curtis Pabon 13:46:00 [facility] US UPPER GI TRACT, ENDOSCOPIC 2021-11-24 Curtis Pabon thodist 13:46:00 [facility] COVID-19 QUALITATIVE RT-PCR 2021-11-21 Curtis Pabon oddona 16:30:00 [facility] Colonoscopy 2021-11-17 [facility] 00:00:00 Hospital Clinics SURGICAL PATHOLOGY REQUEST 2021-10-07 Jayda Montilla dist 18:09:00 [facility] SURGICAL PATHOLOGY REQUEST 2021-10-07 Jayda Montilla dist 17:09:[address] [facility] CT NEEDLE BIOPSY NO CONTRAST 2021-10-07 Jayda Montilla 16:59:06 [facility] PARTIAL THROMBOPLASTIN TIME (PTT) 2021-10-02 Jayda Montilla 15:12:00 [facility] PROTHROMBIN TIME WITH INR 2021-10-02 Jayda Montillat 15:12:00 [facility] BASIC METABOLIC PANEL 2021-10-02 Jayda Montilla 15:12:00 [facility] CBC WITH PLATELET AND DIFFERENTIAL 2021-10-02 Jayda Montilla 15:12:00 [facility] ESTIMATED GFR 2021-10-02 Jayda Montilla 15:12:[address] [facility] [address] CHEST ABD PEL EXTERNAL STUDY 2021-08-12 Jayda Montilla 15:32:[address] [facility] CT, chest, w/wo contrast 2021-08-07 [facility] 00:00:00 Hospital Clinics XR, chest, 2 [facility], abdomen + pelvis, w/wo 2021-08-05 [facility] contrast 00:00:00 Hospital Clinics MAMMO, screening, digital, 2020-12-23 [facility] bilateral 00:00:00 Hospital Clinics DSU PRE-OP 2020-03-07 [facility] of 06:01:00 Unassigned, No [facility] MR KNEE LEFT WO CONTRAST 2020-02-14 [facility] 14:51:14 [facility] REFERRAL- REQUEST/RESPONSE 2020-02-07 Doctor [facility] 06:01:00 Unassigned, No [facility] XR KNEE 3 VW LEFT 2020-01-22 Precious Fox [place] [facility] 19:25:04 [facility] ASSIGNMENT OF BENEFITS 2020-01-22 [facility] 19:11:24 Unassigned, No [facility] Cholecystectomy [facility] Tubal Ligation [facility] Plan of Care Planned Activity Planned Date [...] Counseling and Screening (12+)] Future Scheduled Test 2022-11-27 INFLUENZA VACCINE [facility] 00:00[facility]00 (Season Ended) [code Medical Center = INFLUENZA VACCINE (Season Ended)] Future Scheduled Test 2022-11-02 COVID-19 VACCINE (#1) [facility] 10:24:20 [code = COVID-19 VACCINE (#1)] Future Scheduled Test 2022-11-02 [address]+ [address]NEUM[address] [facility] 10:24:20 VACCINE (1 - PCV) [code = 65+ PNEUMOCOCCAL VACCINE (1 - PCV)] Future Scheduled Test 2022-11-[address] [facility] 10:24:20 (procedure) [code = 584702741] Future Scheduled Test 2022-11-02 SHINGLES VACCINES (1 [facility] 10:24:20 of 2) [code = SHINGLES VACCINES (1 of 2)] Future Scheduled Test 2022-11-[address] [facility] 10:24:20 (1 of 3 - Risk 3-dose series) [code = HEPATITIS B VACCINES (1 of 3 - Risk 3-dose series)] Future Scheduled Test 2022-11-02 INFLUENZA VACCINE [facility] 10:24:20 [code = INFLUENZA VACCINE] Diagnostic Test 2022-10-14 rapid flu (A+B) [code Swe [facility] Pending 00:00:00 = rapid flu (A+B)] Hospital Clinics Diagnostic Test 2022-10-14 rapid SARS CoV 2 Ag, [facility] Pending 00:00:00 QL IA, respiratory Hospital Clinics specimen [code = rapid SARS CoV 2 Ag, QL IA, respiratory specimen] Future Scheduled Test 2022-04-14 COVID-19 VACCINE (#1) [facility] 13:31:14 [code = COVID-19 VACCINE (#1)] Future Scheduled Test 2022-04-14 [address]+ PNEUMOCO[address] [facility] 13:31:14 VACCINE (1 - PCV) [code = 65+ PNEUMOCOCCAL VACCINE (1 - PCV)] Future Scheduled Test 2022-04-[address] [facility] 13:31:14 (procedure) [code = [id number]] Future Scheduled Test 2022-04-14 SHINGLES VACCINES (1 [facility] 13:31:14 of 2) [code = SHINGLES VACCINES (1 of 2)] Future Scheduled Test 2022-04-[address] [facility] 13:31:14 [code = COLONOSCOPY SCREENING] Future Scheduled Test 2022-04-[address] [facility] 13:31:14 (1 of 3 - Risk 3-dose series) [code = HEPATITIS B VACCINES (1 of 3 - Risk 3-dose series)] Future Scheduled Test 2022-04-14 INFLUENZA VACCINE [facility] 13:31:14 [code = INFLUENZA VACCINE] Future Scheduled Test 2022-03-[address] [facility] 00:00:00 (12+) [code = Medical Center DEPRESSION SCREENING (12+)] Future Scheduled Test 2022-03-29 FALLS RISK SCREENING [facility] 00:00:00 [code = FALLS RISK Medical C enter SCREENING] Future Scheduled Test 2022-03-[address] [facility] 00:00:00 (12+) [code = Medical Center DEPRESSION SCREENING (12+)] Future Scheduled Test 2022-03-29 FALLS RISK SCREENING [facility] 00:00:00 [code = FALLS RISK Medical C enter SCREENING] Future Scheduled Test 2022-03-[address] [facility] 00:00:00 (12+) [code = Medical Center DEPRESSION SCREENING (12+)] Future Scheduled Test 2022-03-29 FALLS RISK SCREENING [facility] 00:00:00 [code = FALLS RISK Medical C enter SCREENING] Future Scheduled Test 2022-03-[address] [facility] 00:00:00 (12+) [code = Medical Center DEPRESSION SCREENING (12+)] Future Scheduled Test 2022-03-29 FALLS RISK SCREENING [facility] 00:00:00 [code = FALLS RISK Medical C enter SCREENING] Future Scheduled Test 2022-01-[address] [facility] 15:32:56 (1 of 3 - 3-dose series) [code = HEPATITIS B VACCINES (1 of 3 - 3-dose series)] Future Scheduled Test 2022-01-05 COVID-19 VACCINE (#1) [facility] 15:32:56 [code = COVID-19 VACCINE (#1)] Future Scheduled Test 2022-01-05 65+ PNEUMOCOCCAL Me [facility] 15:32:56 VACCINE (1 - PCV) [code = 65+ PNEUMOCOCCAL VACCINE (1 - PCV)] Future Scheduled Test 2022-01-[address] [facility] 15:32:56 (procedure) [code = [id number]] Future Scheduled Test 2022-01-05 SHINGLES VACCINES (1 [facility] 15:32:56 of 2) [code = SHINGLES VACCINES (1 of 2)] Future Scheduled Test 2022-01-[address] [facility] 15:32:56 [code = COLONOSCOPY SCREENING] Future Scheduled Test 2022-01-05 INFLUENZA VACCINE M [facility] 15:32:56 [code = INFLUENZA VACCINE] Future Scheduled Test 2021-11-27 IN[facility] [facility]ACC[address] [facility] 00:00:00 (#1) [code = Medical Center INFLUENZA VACCINE (#1)] Future Scheduled Test 2021-11-27 [address] VACC[address] [facility] 00:00:00 (#1) [code = Medical Center INFLUENZA VACCINE (#1)] Future Scheduled Test 2021-11-27 INFL[address]ZA VACC[address] [facility] 00:00:00 (#1) [code = [facility] INFLUENZA VACCINE (#1)] Future Scheduled Test [...] = DXA [facility] 00:00:00 SCAN] [facility] Future Scheduled Test 1945 DXA SCAN [code = DXA [facility] 00:00:00 SCAN] [facility] Future Scheduled Test 1945 DXA SCAN [code = DXA [facility] 00:00:00 SCAN] [facility] Future Scheduled Test 1945 DXA SCAN [code = DXA [facility] 00:00:00 SCAN] [facility] Future Scheduled Test 1945 DXA SCAN [code = DXA [facility] 00:00:00 SCAN] [facility] Future Appointment 2022-12-15 Valeria Escobar, Samantha Meredith Critical access hospital 00:00:00 [address]; [facility] [address], [place] [address] Instructions Formerly [facility] s Encounters Start End Encounter Admission Attending Care Care Encounter Source Date/Time Date/Time Type Type Clinicians Facility Department ID 2022-02-03 Inpatient DELACRUZ, [facility] Surgery [id number] [facility] 10:17:40 CECIL 2022-10-21 2022-10-21 Outpatient GC_GCBZW_Ka PRIV PRIV [id number] [facility] 00:00:00 00:00:00 diyala_S [id number] Medic al 2022-10-14 2022-10-14 Outpatient DELANEY_A [facility] [id number] 0230 [place] 00:00:00 00:00:00 719 [facility] 2022-10-14 2022-10-14 Valeria Bronson [facility] [place] 719 [place] 00:00:00 00:00:00 Martell Escobar MD: [address] [facility] - ty Alanis, ISIDRO Hospit a [address], COMM[facility] [address], [facility] [place] [place], [address] DELANEY , Ph. 2022-09-10 2022-09-10 Outpatient DELANEY_A [facility] [id number] 0230 [place] 00:00:00 00:00:00 615 [facility] i ty [facility] Clinics 2022-09-10 2022-09-10 Margot [facility] [place] 15 [place] 00:00:00 00:00:00 Martell Mora [facility] BASEBALL PITCHER-C: 303 Hospital - ty N [facility] [place], [facility] l [address], [facility] [place], [address] REY , Ph. 2022-08-20 2022-08-20 Outpatient DELANEY_Rommel [facility] [id number] 0230 [place] 00:00:00 00:00:00 525 Commun i ty [facility]ospita [facility] Clinics 2022-08-20 2022-08-20 Valeria Bronson [facility] [place] 525 [place] 00:00:00 00:00:00 Martell Escobar MD: [address] - ty AlanisISIDRO miranda Hospit a [address], COMMUNITY l [address], [facility] [place] [place], [address] DELANEY , Ph. 2022-07-06 2022-07-06 Outpatient DELANEY_A [facility] [id number] 0230 [place] 00:00:00 00:00:00 410 Commun i ty Hospita [facility] Clinics 2022-07-06 2022-07-06 Valeria Bronson [facility] [place] 410 [place] 00:00:00 00:00:00 Martell Escobar MD: [address] [facility] - ty ISIDRO Alanis Hospit a [address], COMMUNITY l [address], [facility] [place], [address] DELANEY , Ph. 2022-06-04 2022-06-04 Outpatient KEFFER_A [facility] [id number] 0230 [place] 00:00:00 00:00:00 309 Commun i ty Hospita l Clinics 2022-06-04 2022-06-04 Valeria Bronson [facility] [place] 309 [place] 00:00:00 00:00:00 Martell Escobar MD: [facility] [address] [address], COMMUNITY l [address], [facility] [place], [address] DELANEY , Ph. 2022-04-08 2022-04-08 Outpatient DELANEY_A [facility] [id number] 0230 [place] 00:00:00 00:00:00 111 Commun i ty Hospita l Clinics 2022-04-08 2022-04-08 Vaelria Bronson [facility] [place] 111 [place] 00:00:00 00:00:00 Martell Escobar MD: [address] a [address], COMMUNITY l [address], [facility] [place], [address] DELANEY , Ph. 2022-04-02 2022-04-02 Outpatient DELANEY_A [facility] [id number] 0230 [place] 00:00:00 00:00:00 105 Commun i ty Hospita [facility] Clinics 2022-04-01 2022-04-01 Outpatient DELANEY_A [facility] [id number] 0230 [place] 00:00:00 00:00:00 104 Commun i ty Hospita l Clinics 2022-04-01 2022-04-01 Valeria Bronson [facility] [place] 104 [place] 00:00:00 00:00:00 Martell Escobar MD: [address] [facility] ty ISIDRO Alanis Hospit a [address], [facility] l [address], HOSPITAL Clinic [place], [address] DELANEY , Ph. 2022-03-01 2022-03-09 Hospital ER MiguelHiginio le [facility] [id number] [facility] 14:45:00 13:50:00 Encounter Merly Thompson Sung In [facility] 2022-03-01 2022-03-09 Inpatient ER [facility] Surgery [id number] [facility] 14:45:00 13:50:00 [facility] 2022-03-03 2022-03-04 Anesthesia Laron Negrete [facility] [id number] [facility] 18:23:00 01:48:00 Event Ben Mckinney [facility] 2022-03-03 2022-03-03 [facility] [id number] 18:10:00 21:33:00 [facility] 2022-03-02 2022-03-02 Travel [facility] [id number] [facility] 00:00:00 00:00:00 [facility] 2022-02-16 2022-02-16 [facility] 1.2.840.1 [id number] [id number] Methodi 10:40:00 10:45:[address] [place] 3.430.2.7 Hospit a .3.426217 l .8 2022-02-16 2022-02-16 Lab Eliseo 1.2.840.1 [id number] 2100 [id number] Methodi 10:40:00 10:45:[address] Wilner 3.430.2.7 Hospit a .3.037502 l .8 2022-02-16 2022-02-16 Office Eliseo, 1.2.840.1 [id number] 2099 [id number] Methodi 09:30:00 10:24:08 Visit Sloan 42451.1.[address] Wilner 3.430.2.7 Hospit a .3.365580 l .8 2022-02-16 2022-02-16 Office Eliseo, 1.2.840.1 [id number] 2099 [id number] Methodi 09:30:00 10:24:08 Visit Sloan 04745.1.[address] [place]ner 3.430.2.7 Hospit a .3.887850 l .8 2022-02-16 2022-02-16 Travel 1.2.840.1 1.2.866.867 8665 [id number] Methodi 00:00:00 00:00:[address] 3.430.2.7 0.2.7.3.698 Ho spita .3.362295 084.8 l .8 2022-02-16 2022-02-16 Travel 1.2.840.1 1.2.228.693 4466 076890 Methodi 00:00:00 00:00:[address] 3.430.2.7 0.2.7.3.698 Ho spita .3.674269 084.8 l .8 2022-02-12 2022-02-12 Telephone Jr. Jignesh 1.2.840.1 [id number] Methodi 00:00:00 00:00:[address] 3.430.2.7 Hospit a .3.471274 l .8 2022-02-12 2022-02-12 Telephone Jr. Jignesh 1.2.840.1 [id number] Methodi 00:00:00 00:00:[address] [place] 3.430.2.7 Hospit a .3.707640 l .8 2022-02-10 2022-02-10 [facility], 1.2.840.1 [id number] Methodi 06:43:32 23:59:00 Encounter Sloan 56382.1.[address] [place] 3.430.2.7 Hospit a .3.112481 l .8 2022-02-10 2022-02-10 [facility], 1.2.840.1 [id number] [id number] Methodi 06:43:32 23:59:00 Encounter Sloan 24940.1.[address] [place] 3.430.2.7 Hospit a .3.100873 l .8 2022-02-10 2022-02-10 Travel 1.2.840.1 1.2.342.115 3550 [id number] Methodi 00:00:00 00:00:[address] 3.430.2.7 0.2.7.3.698 Ho spita .3.477382 084.8 l .8 2022-02-10 2022-02-10 Travel 1.2.840.1 1.2.690.618 9373 392590 Methodi 00:00:00 00:00:[address] 3.430.2.7 0.2.7.3.698 Ho spita .3.996710 084.8 l .8 2022-02-06 2022-02-06 [facility], 1.2.840.1 [id number] 2 [id number] Methodi 14:00:00 14:30:00 ion Sloan 06513.1.[address] Testing Wilner 3.430.2.7 Hospit a .3.514191 l .8 2022-02-06 2022-02-06 [facility], 1.2.840.1 [id number] 2 [id number] Methodi 14:00:00 14:30:00 ion Sloan 45876.1.[address] Testing Wilner 3.430.2.7 Hospit a .3.394605 l .8 2022-02-06 2022-02-06 Travel 1.2.840.1 1.2.349.498 9240 [id number] Methodi 00:00:00 00:00:[address] 3.430.2.7 0.2.7.3.698 Ho spita .3.427730 084.8 l .8 2022-02-06 2022-02-06 Travel 1.2.840.1 1.2.963.487 3120 766300 Methodi 00:00:00 00:00:[address] 3.430.2.7 0.2.7.3.698 Ho spita .3.486280 084.8 l .8 2022-02-05 2022-02-05 Outpatient DELANEY_A [facility] [id number] [place] 00:00:00 00:00:00 110 Commun i ty [facility] 2022-02-04 2022-02-04 Outpatient DELANEY_A [facility] [id number] [place] 00:00:00 00:00:00 109 Commun i ty [facility] 2022-02-04 2022-02-[address] [facility] [place] 109 [place] 00:00:00 00:00:00 Martell Escobar MD: [address] [facility] [address] l [address], [facility] [place]. [place]EN [address] DELANEY , Ph. 2022-02-03 2022-02-03 Travel 1.2.840.1 1.2.064.964 5475 [id number] Methodi 00:00:00 00:00:[address] 3.430.2.7 0.2.7.3.698 Ho spita .3.942586 084.8 l .8 2022-02-03 2022-02-03 Telephone Ramírez, 1.2.840.1 [id number] 2099 [id number] Methodi 00:00:00 00:00:[address] 3.430.2.7 Hospit a .3.549839 l .8 2022-02-03 2022-02-03 Travel 1.2.840.1 1.2.724.372 8397 [id number] Methodi 00:00:00 00:00:[address] 3.430.2.7 0.2.7.3.698 Ho spita .3.197488 084.8 l .8 2022-02-03 2022-02-03 Telephone Darrell 1.2.840.1 [id number] 2099 [id number] Methodi 00:00:00 00:00:[address] 3.430.2.7 Hospit a .3.281648 l .8 2022-01-06 2022-01-24 Hospital ER Riley Huizarjamilah [facility] [id number] [facility] 20:53:00 17:24:00 Encounter [facility] 2021-12-28 2022-01-24 Inpatient ER [facility] Emergency 20 [id number] [facility] 23:00:00 17:24:00 2022-01-16 2022-01-16 Orders [facility] [id number] 00:00:00 00:00:00 Only [facility] 2022-01-15 2022-01-15 Surgery Delacruz, [facility] [id number] 13:30:00 14:30:00 [facility] 2022-01-07 2022-01-07 Telephone Promise 1.2.840.1 [id number] 2099 [id number] Methodi 00:00:00 00:00:[address] 3.430.2.7 Hospit a .3.990659 l .8 2022-01-07 2022-01-07 Telephone Promise 1.2.840.1 [id number] 2099 [id number] Methodi 00:00:00 00:00:[address] 3.430.2.7 Hospit a .3.938473 l .8 2022-01-06 2022-01-06 Telephone Ramírez, 1.2.840.1 [id number] 2099 [id number] Methodi 00:00:00 00:00:[address] 3.430.2.7 Hospit a .3.049504 l .8 2022-01-06 2022-01-06 Telephone Darrell, 1.2.840.1 [id number] 2099 [id number] Methodi 00:00:00 00:00:[address] 3.430.2.7 Hospit a .3.433451 l .8 2021-12-31 2021-12-31 Orders Mark, 1.2.840.1 [id number] 935325 6908 Methodi 00:00:00 00:00:00 Only Eli 70618.1.[address] 3.430.2.7 Hospit a .3.262031 l .8 2021-12-31 2021-12-31 Orders Mark, 1.2.840.1 [id number] 761289 6467 Methodi 00:00:00 00:00:00 Only Eli 66554.1.[address] 3.430.2.7 Hospit a .3.127689 l .8 2021-12-31 2021-12-31 Orders Yehudaela, 1.2.840.1 [id number] 739991 1809 Methodi 00:00:00 00:00:00 Only Eli 76194.1.[address] 3.430.2.7 Hospit a .3.600080 l .8 2021-12-31 2021-12-31 Orders Yehudaela, 1.2.840.1 [id number] 822332 9904 Methodi 00:00:00 00:00:00 Only Eli 07070.1.[address] 3.430.2.7 Hospit a .3.698756 l .8 2021-12-30 2021-12-30 Orders Pilar, 1.2.840.1 [id number] 13440 09681 Methodi 00:00:00 00:00:00 Only Jennifer 37643.1.[address] 3.430.2.7 Hospit a .3.000596 l .8 2021-12-30 2021-12-30 Documentat Virgen, 1.2.840.1 [id number] Methodi 00:00:00 00:00:00 ion Destinee 40196.1.[address] 3.430.2.7 Hospit a .3.008120 l .8 2021-12-30 2021-12-30 Orders Quezada, 1.2.840.1 [id number] 16986 Methodi 00:00:00 00:00:00 Only Jennifer 51167.1.[address] 3.430.2.7 Hospit a .3.700092 l .8 2021-12-30 2021-12-30 Documentat Virgen, 1.2.840.1 [id number] 378 [id number] Methodi 00:00:00 00:00:00 ion Destinee 27901.1.[address] 3.430.2.7 Hospit a .3.272156 l .8 2021-12-25 2021-12-25 Outpatient DELANEY_A [facility] 5094-2 0220 [place] 00:00:00 00:00:00 [facility] 2021-12-24 2021-12-24 Outpatient DELANEY_A [facility] 5094-2 0220 [place] 00:00:00 00:00:00 [facility] 2021-12-24 2021-12-24 Valeria Bronson [facility] [place] - [place] 8 [place] 00:00:00 00:00:00 Martell Escobar MD: [address] [facility] Hospit a [address], [facility] l [address], [facility], [facility], [address] DELANEY , Ph. 2021-12-18 2021-12-18 [facility], 1.2.840.1 [id number] 452 [id number] Methodi 10:29:58 23:59:00 Encounter Sloan 45764.1.[address] Wilner 3.430.2.7 Hospit a .3.026834 l .8 2021-12-18 2021-12-18 [facility], 1.2.840.1 [id number] 650 [id number] Methodi 10:29:58 23:59:00 Encounter Sloan 38100.1.[address] Wilner 3.430.2.7 Hospit a .3.237040 l .8 2021-12-18 2021-12-18 Travel 1.2.840.1 1.2.452.860 2194 253989 Methodi 00:00:00 00:00:[address] 3.430.2.7 0.2.7.3.698 Ho spita .3.770602 084.8 l .8 2021-12-18 2021-12-18 Travel 1.2.840.1 1.2.202.079 4576 508578 Methodi 00:00:00 00:00:[address] 3.430.2.7 0.2.7.3.698 Ho spita .3.979884 084.8 l .8 2021-12-08 2021-12-08 Telephone Tyler, 1.2.840.1 [id number] [id number] Methodi 00:00:00 00:00:[address] 3.430.2.7 Hospit a .3.751874 l .8 2021-12-08 2021-12-08 Telephone Tyler, 1.2.840.1 [id number] 2099 987852 Methodi 00:00:00 00:00:[address] 3.430.2.7 Hospit a .3.864489 l .8 2021-11-27 2021-11-27 [facility], 1.2.840.1 [id number] 2099 478272 Methodi 11:00:00 11:42:38 Visit Sloan 00534.1.[address] Wilner 3.430.2.7 Hospit a .3.520989 l .8 2021-11-27 2021-11-27 Office Eliseo, 1.2.840.1 [id number] 2099280 Methodi 11:00:00 11:42:38 Visit Sloan 07594.1.[address] Wilner 3.430.2.7 Hospit a .3.547590 l .8 2021-11-27 2021-11-27 Travel 1.2.840.1 1.2.454.360 4778 282538 Methodi 00:00:00 00:00:[address] 3.430.2.7 0.2.7.3.698 Ho spita .3.599751 084.8 l .8 2021-11-27 2021-11-27 Travel 1.2.840.1 1.2.750.157 3889 442595 Methodi 00:00:00 00:00:[address] 3.430.2.7 0.2.7.3.698 Ho spita .3.223463 084.8 l .8 2021-11-24 2021-11-24 [facility], 1.2.840.1 [id number] 46048 Methodi 07:06:00 10:45:00 Encounter Svetang 39824.1.[address] Kurt 3.430.2.7 Hospit a .3.826761 l .8 2021-11-24 2021-11-24 [facility], 1.2.840.1 [id number] 03314 Methodi 07:06:00 10:45:00 Encounter Svetang 74386.1.[address] Kurt 3.430.2.7 Hospit a .3.337720 l .8 2021-11-24 2021-11-24 [facility], 1.2.840.1 [id number] 096972 4714 Methodi 08:55:00 09:50:[address] Kurt 3.430.2.7 Hospit a .3.585398 l .8 2021-11-24 2021-11-24 Surgery Pabon, 1.2.840.1 [id number] 696385 0564 Methodi 08:55:00 09:50:[address] Kurt 3.430.2.7 Hospit a .3.781683 l .8 2021-11-24 2021-11-24 Anesthesia Fergus, Jessy Bang 1.2.840. 1 [id number] Methodi 08:51:00 09:28:00 Event Ashok Romanelisse 03349.1.[address] 3.430.2.7 Hospit a .3.888952 l .8 2021-11-24 2021-11-24 Anesthesia FergusJessy vasquez Bang 1.2.840. 1 [id number] Methodi 08:51:00 09:28:00 Event Dominic Romane 00992.1.[address] 3.430.2.7 Hospit a .3.742184 l .8 2021-11-21 2021-11-21 Outpatient [facility] [id number] 976 [place] 00:00:00 00:00:[address] 2021-11-21 2021-11-21 Telephone Tyler, 1.2.840.1 [id number] 2099 656226 Methodi 00:00:00 00:00:[address] 3.430.2.7 Hospit a .3.504143 l .8 2021-11-21 2021-11-21 Travel 1.2.840.1 1.2.446.030 0935 981678 Methodi 00:00:00 00:00:[address] 3.430.2.7 0.2.7.3.698 spita .3.152981 084.8 l .8 2021-11-21 2021-11-21 Telephone Tyler, 1.2.840.1 [id number] 2099151 Methodi 00:00:00 00:00:[address] 3.430.2.7 Hospit a .3.710040 l .8 2021-11-21 2021-11-21 Travel 1.2.840.1 1.2.213.124 9806 393074 Methodi 00:00:00 00:00:[address] 3.430.2.7 0.2.7.3.698 Ho spita .3.299682 084.8 l .8 2021-11-19 2021-11-19 Travel 1.2.840.1 1.2.113.465 5578 035012 Methodi 00:00:00 00:00:[address] 3.430.2.7 0.2.7.3.698 Ho spita .3.393913 084.8 l .8 2021-11-19 2021-11-19 Travel 1.2.840.1 1.2.045.772 3048 515344 Methodi 00:00:00 00:00:[address] 3.430.2.7 0.2.7.3.698 Ho spita .3.200585 084.8 l .8 2021-11-16 2021-11-16 Outpatient DELANEY_A [facility] 5094-2 0220 [place] 00:00:00 00:00:00 821 [facility] i ty [facility]osp[facility] Clinics 2021-11-12 2021-11-12 Outpatient DELANEY_A [facility] 5094-2 0220 [place] 00:00:00 00:00:00 817 Commun i ty Hospita l Clinics 2021-11-12 2021-11-12 Valeria Bronson [facility] [place] - [place] 817 [place] 00:00:00 00:00:00 Martell Escobar MD: [address] [facility] ty ISIDRO [facility] Hospit a [address], COMMUNITY l [address], [place], [place] CLINIC, [address] DELANEY , Ph. 2021-11-12 2021-11-12 Outpatient Valeria Escobar [facility] 16d [id number] 00:00:00 00:00:00 Aiyana [id number] 2021-11-04 2021-11-04 Prep for Austen, 1.2.840.1 [id number] 887 [id number] Methodi 00:00:00 00:00:00 Surgery Matilda Lewis 17285.1.1 162 [address] t 3.430.2.7 Hospit a .3.870925 l .8 2021-10-29 2021-10-29 Telephone [place], 1.2.840.1 [id number] 2100 263409 Methodi 00:00:00 00:00:[address] 3.430.2.7 Hospit a .3.979383 l .8 2021-10-18 2021-10-18 Telephone Jeevan, 1.2.840.1 [id number] 2100 657699 Methodi 00:00:00 00:00:[address] 3.430.2.7 Hospit a .3.117476 l .8 2021-10-16 2021-10-16 Office Roldan, 1.2.840.1 [id number] 53102 81734 Methodi 09:00:00 09:20:15 Visit Jayda Alexis 41165.1.1 998 s t 3.430.2.7 Hospit a .3.547438 l .8 2021-10-16 2021-10-16 Travel 1.2.840.1 1.2.169.895 2271 961535 Methodi 00:00:00 00:00:[address] 3.430.2.7 0.2.7.3.698 Ho spita .3.015860 084.8 l .8 2021-10-11 2021-10-11 [facility], 1.2.840.1 [id number] 21 [id number] Methodi 00:00:00 00:00:[address] 3.430.2.7 Hospit a .3.798273 l .8 2021-10-07 2021-10-07 [facility] 1.2.840.1 [id number] 2099151 Methodi 09:08:49 23:59:00 Encounter Jayda Alexis 19975.1.[address] 3.430.2.7 Hospit a .3.685309 l .8 2021-10-07 2021-10-07 Travel 1.2.840.1 1.2.726.830 2137 480695 Methodi 00:00:00 00:00:[address] 3.430.2.7 0.2.7.3.698 Ho spita .3.229464 084.8 l .8 2021-10-03 2021-10-03 [facility] 118 714-202 [facility] 11:16:00 11:16:00 bin 14667 [facility] Program 2021-10-02 2021-10-02 Outpatient [facility] [id number] 6746 [place] 00:00:00 00:00:00 JAYDA Lazo2 Method i [address] 2021-10-02 2021-10-02 Travel 1.2.840.1 1.2.690.647 0917 631200 Methodi 00:00:00 00:00:[address] 3.430.2.7 0.2.7.3.698 Ho spita .3.517770 084.8 l .8 2021-10-01 2021-10-01 Travel 1.2.840.1 1.2.078.453 7619 453776 Methodi 00:00:00 00:00:[address] 3.430.2.7 0.2.7.3.698 Ho spita .3.654719 084.8 l .8 2021-10-01 2021-10-01 Telephone [place], 1.2.840.1 [id number] 2099 498310 Methodi 00:00:00 00:00:[address] 3.430.2.7 Hospit a .3.064542 l .8 2021-09-23 2021-09-23 Travel 1.2.840.1 1.2.809.329 1643 621837 Methodi 00:00:00 00:00:[address] 3.430.2.7 0.2.7.3.698 Ho spita .3.614904 084.8 l .8 2021-09-22 2021-09-22 Orders Jayda Louis 1.2.840.1 [id number] 69949914 Methodi 00:00:00 00:00:[address] 3.430.2.7 Hospit a .3.786087 l .8 2021-09-16 2021-09-16 [facility], 1.2.840.1 [id number] 2099 804074 Methodi 15:05:50 23:59:00 Encounter Charleen 64928.1.[address] 3.430.2.7 Hospit a .3.011356 l .8 2021-09-16 2021-09-16 [facility], 1.2.840.1 [id number] 164 [id number] Methodi 00:00:00 00:00:00 Charleen 27284.1.1 403 s t 3.430.2.7 Hospit a .3.495117 l .8 2021-09-16 2021-09-16 Jayda Palacio 1.2.840.1 [id number] 21 [id number] Methodi 00:00:00 00:00:[address] 3.430.2.7 Hospit a .3.315695 l .8 2021-09-10 2021-09-10 [facility], 1.2.840.1 [id number] 69335 31462 Methodi 13:00:00 14:09:43 Visit Jayda Alexis 16013.1.1 062 s t 3.430.2.7 Hospit a .3.659789 l .8 2021-09-10 2021-09-10 Travel 1.2.840.1 1.2.339.140 6617 714679 Methodi 00:00:00 00:00:[address] 3.430.2.7 0.2.7.3.698 Ho spita .3.258078 084.8 l .8 2021-08-12 2021-08-12 Outpatient DELANEY_Rommel [facility] 5094-2 0220 [place] 05:28:00 05:28:00 517 Commun i ty [facility] 2021-08-12 2021-08-12 Valeria Bronson [facility] [place] - [place] 517 [place] 00:00:00 00:00:00 Martell Escobar MD: [address] [facility] Hospit a [address], COMMUNITY l [address], [facility], [address] DELANEY , Ph. 2021-08-12 2021-08-12 Outpatient Valeria Escobar [facility] faf [id number] 00:00:00 00:00:00 Aiyana [id number] 2021-08-05 2021-08-05 Outpatient DELANEY_Rommel [facility] 5094-2 0220 [place] 01:16:00 01:16:00 510 Commun i ty [facility] 2021-08-05 2021-08-05 Valeria Bronson [facility] [place] - [place] 510 [place] 00:00:00 00:00:00 Martell Escobar MD: [address] [facility] Hospit a [address], COMMUNITY l [address], [facility], [address] DELANEY , Ph. 2021-08-05 2021-08-05 Outpatient Valeria Escobar [facility] 8ec ecfee-d 00:00:00 00:00:00 Aiyana [id number] 2021-07-15 2021-07-15 Outpatient DELANEY_Rommel [facility] 5094-2 0220 [place] 01:13:00 01:13:00 419 Commun i ty Hospita l Clinics 2021-07-15 2021-07-15 Valeria Bronson [facility] [place] 419 [place] 00:00:00 00:00:00 Martell Escobar MD: [address] [facility] Hospit a [address], [facility] [address], HOSPITAL [facility], [place] CL[place]IC, [address] DELANEY , Ph. 2021-07-15 2021-07-15 Outpatient Valeria Escobar [facility] 06e [id number] 00:00:00 00:00:00 Aiyana [id number] 2021-07-06 2021-07-06 Outpatient Ferguson_Ro [facility] 118 4- [place] 07:13:00 07:13:00 bin 08997 [facility] 2021-07-03 2021-07-03 Outpatient Ferguson_Ro [facility] 118 714-202 [place] 03:25:00 03:25:00 bin 68133 [facility] 2021-07-03 2021-07-03 Jamir Bronson [facility] [place] - [id number] 7 [place] 00:00:00 00:00:00 Maria De Jesus Herrera MD: [id number] [employer]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 2021-07-01 2021-07-01 Outpatient Ferguson_Ro [facility] 118 [place] 01:47:00 01:47:00 bin [facility] 2021-06-30 2021-06-30 Outpatient Ferguson_Ro [facility] 118 [place] 09:48:00 09:48:00 bin 98443 [facility] 2021-06-24 2021-06-24 Outpatient DELANEY_Rommel [facility] 5094-2 0 [place] 12:05:00 12:05:00 329 Commun i ty Hospita [facility] Clinics 2021-06-24 2021-06-24 Valeria Bronson [facility] [place] - 329 [place] 00:00:00 00:00:00 Martell Escobar MD: [address] [facility] Hospit a [address], [facility] [address], HOSPITAL [place], [place] CLINIC, [address] DELANEY , Ph. 2021-06-24 2021-06-24 Outpatient Valeria Escobar [facility] 791 [id number] 00:00:00 00:00:00 Aiyana [id number] 2021-06-23 2021-06-23 Outpatient JIM, MHFB [facility]FB 7500 MHFB 07:13:00 11:40:00 ARGELIA 2021-06-23 2021-06-23 Outpatient DELANEY_Rommel [facility] 5094-2 0220 [place] 04:04:00 04:04:00 328 Commun i ty Hospita l Clinics 2021-06-03 2021-06-03 Outpatient Ferguson_Ro [facility] 118 [place] 08:56:00 08:56:00 bin [facility] 2021-06-02 2021-06-02 Outpatient Ferguson_Ro [facility] 118 [place] 03:29:00 03:29:00 bin [facility] 2021-06-02 2021-06-02 Jamir Bronson [facility] - 7 [place] 00:00:00 00:00:00 Maria De Jesus Herrera MD: [id number] [employer]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 2021-05-27 2021-05-27 Outpatient Ferguson_Ro [facility] 118 [place] 10:17:00 10:17:00 bin [facility] 2021-05-26 2021-05-26 Outpatient Ferguson_Ro [facility] 118 [place] 04:39:00 04:39:00 bin [facility] 2021-05-19 2021-05-19 Outpatient Ferguson_Ro [facility] 118 [place] 01:59:00 01:59:00 bin [facility] 2021-05-14 2021-05-14 Telephone [place], 1.2.840.1 [id number] 2100 [id number] Methodi 00:00:00 00:00:[address] 3.430.2.7 Hospit a .3.451177 l .8 2021-04-09 2021-04-09 Outpatient DELANEY_Rommel [facility] [id number] 0220 [place] 02:30:00 02:30:00 112 [facility] i ty [facility] 2021-04-09 2021-04-09 Valeria Bronson [facility] 112 [place] 00:00:00 00:00:00 Martell Escobar MD: [address] [facility] ty [facility] Hospit a [address], COMMUNITY l [address], HOSPITAL Clinic [facility], [address] DELANEY , Ph. 2021-04-09 2021-04-09 Outpatient Valeria Escobar [facility] 35c [id number] 00:00:00 00:00:00 Aiyana [id number] 2021-03-18 2021-03-18 Outpatient KEJACKIE_A [facility] [id number] 210 [place] 04:45:00 04:45:00 221 Commun i ty Hospita l Clinics 2021-03-18 2021-03-18 Valeria Bronson [facility] [place] 221 [place] 00:00:00 00:00:00 Martell Escobar MD: [address] [facility] Hospit a [address], COMMUNITY l [address], HOSPITAL [place], [place] CLINIC, [address] DELANEY , Ph. 2021-02-13 2021-02-13 Outpatient KEJACKIE_A [facility] [id number] 1 [place] 04:05:00 04:05:00 118 Commun i ty Hospita l Clinics 2021-02-13 2021-02-13 Valeria Bronson [facility] [place] 118 [place] 00:00:00 00:00:00 Martell Escobar MD: [address] [facility] Hospit a [address], [facility] l [address], HOSPITAL [place], [place] CLINIC, [address] DELANEY , Ph. 2021-02-13 2021-02-13 Outpatient Valeria Escobar [facility] 79c [id number] 00:00:00 00:00:00 Aiyana [id number] 2021-01-23 2021-01-23 Outpatient KEJACKIE_Rommel [facility] [id number] 0211 [place] 01:03:00 01:03:00 028 Commun i ty Hospita l Clinics 2021-01-23 2021-01-23 Outpatient Valeria Escobar [facility] [id number] 00:00:00 00:00:00 Aiyana [id number] 2021-01-23 Valeria Bronson [facility] [place] - [place] 00:00:00 00:00:00 Martell Escobar MD: [address] [facility] Hospit a [address], COMMUNITY l [address], [facility], [address] DELANEY , Ph. 2021-01-03 2021-01-03 Outpatient МАРИЯFFER_A [facility] [id number] 1 [place] 05:21:00 05:21:00 008 Commun i ty Hospita l Clinics 2020-12-23 2020-12-23 Outpatient KEFFER_A [facility] [id number] 0210 [place] 10:39:00 10:39:00 927 Commun i ty Hospita l Clinics 2020-12-23 2020-12-23 Outpatient Valeria Escobar [facility] a04 [id number] 00:00:00 00:00:00 Aiyana [id number] 2020-12-23 2020-12-23 Valeria Bronson [facility] 92 [place] 00:00:00 00:00:00 Martell Escobar MD: [address] [facility] Hospit a [address], COMMUNITY l [address], [facility], [address] DELANEY , Ph. 2020-11-25 2020-11-25 Outpatient DELANEY_Rommel [facility] [id number] 0 [place] 12:35:00 12:35:00 830 Commun i ty Hospita l Clinics 2020-10-24 2020-10-24 Outpatient KEFFER_A [facility] [id number] 0210 [place] 04:21:00 04:21:00 729 Commun i ty Hospita l Clinics 2020-10-24 2020-10-24 Outpatient Tez [facility] [id number] 00:00:00 00:00:00 Warren [id number] [place] [id number] 2020-10-24 2020-10-24 Warren [facility] [place] 00:00:00 00:00:00 [facility] - ty MD: [address] [facility] Zeke, Specialty l [address], [place] [address] , Ph. 2020-10-21 2020-10-21 Outpatient KEFFER_A [facility] [id number] 0210 [place] 03:59:00 03:59:00 726 Commun i ty Hospita l [facility] 2020-10-08 2020-10-08 [facility] [id number] 00:00:00 00:00:00 [place] [id number] [place] [id number] 2020-10-08 2020-10-08 Warren [facility] [place] 13 [place] 00:00:00 00:00:00 [facility] - ty MD: [address] [facility] [address] SURGERY , Ph. 2020-09-17 2020-09-17 Outpatient KEFFER_A [facility] [id number] 0 [place] 04:37:00 04:37:00 622 Commun i ty [facility] 2020-09-12 2020-09-12 Outpatient KEFFER_A [facility] [id number] 0 [place] 09:22:00 09:22:00 617 Commun i ty Hospita l [facility] 2020-09-12 2020-09-12 Warren [facility] [place] 17 [place] 00:00:00 00:00:00 [facility] d[facility]han Reagan [facility] - ty MD: [address] [facility] Zeke, Specialty l [address], [place] [address] , Ph. 2020-09-12 2020-09-12 [facility] [id number] 00:00:00 00:00:00 Warren [id number] [place] [id number] 2020-08-29 2020-08-29 Outpatient KEFFER_A [facility] [id number] 0210 [place] 04:14:00 04:14:00 603 Commun i ty Hospita l Clinics 2020-08-29 2020-08-29 Valeria Bronson [facility] [place] 603 [place] 00:00:00 00:00:00 Martell Escobar MD: [address] [facility] Hospit a [address], COMMUNITY l [address], HOSPITAL [place], [place] CLINIC, [address] DELANEY , Ph. 2020-08-29 2020-08-29 Outpatient Valeria Escobar [facility] [id number] 00:00:00 00:00:00 Aiyana [id number] 2020-07-09 2020-07-09 Outpatient KEFFER_A [facility] [id number] 0210 [place] 02:49:00 02:49:00 413 Commun i ty Hospita l [facility] 2020-07-09 2020-07-09 Valeria Bronson [facility] [place] 413 [place] 00:00:00 00:00:00 Martell Escobar MD: [address] [facility] Hospit a [address], COMMUNITY l [address], HOSPITAL [place], [place] CL[place]IC, [address] DELANEY , Ph. 2020-07-09 2020-07-09 Outpatient Valeria Escobar [facility] 18a [id number] 00:00:00 00:00:00 Aiyana [id number] 2020-06-19 2020-06-19 Outpatient KEJACKIE_A [facility] [id number] 0210 [place] 11:09:00 11:09:00 324 Commun i ty Hospita l Clinics 2020-06-19 2020-06-19 Valeria Bronson [facility] [place] 324 [place] 00:00:00 00:00:00 Martell Escobar MD[facility] [address] [facility] [address] COMMUNITY l [address], H[facility]PITAL [place], [address] DELANEY , Ph. 2020-06-19 2020-06-19 Outpatient Valeria Escobar [facility] 135 [id number] 00:00:00 00:00:00 Aiyana [id number] 2020-03-08 2020-03-08 Telephone [facility] 1.2.840.114 80 [id number] Univers 00:00:00 00:00:00 [facility] 350.1.13.10 it y of Surgical 4.2.7.2.686 [place] as Specialti [phone] Fl dical es 198 [facility] 2020-03-07 2020-03-07 Office [facility] 1.2.683.802 [id number] [facility] 08:46:43 09:23:25 Visit [facility]ious [facility] 350.1.13.10 it y of Surgical 4.2.7.2.686 [place] as Specialti [phone] [facility] 198 [facility] 2020-03-07 2020-03-07 Office [facility] [id number] 08:46:43 09:23:25 Visit Precious [facility] 350.1.13.10 Surgical 4.2.7.2.686 Specialti [phone] [address] 2020-03-07 2020-03-07 [facility]patient [facility] [id number] Univers 08:45:00 08:45:00 PRECIOUS moran of [facility] 2020-03-07 2020-03-07 Orders Doctor WADE 1.2.840.114 [id number] Univers 00:00:00 00:00:00 Only Unassigned, CECILIA 350.1.13.10 ity of [place] [facility] 4.2.7.2.686 Thomas as [phone] [address] 2020-03-07 2020-03-07 Orders Doctor SHERI 1.2.840.114 [id number] 00:00:00 00:00:00 Only Unassigned, CECILIA 350.1.13.10 [place] [facility] 4.2.7.2.686 [id number] [facility] 2020-02-14 2020-02-14 [facility] 1.2.840.114 [id number] Univers 07:36:30 23:59:00 Encounter Precious Ortiz 350.1.13.10 ity of [place] 4.2.7.2.686 [facility] [phone] [address] 2020-02-14 2020-02-14 Outpatient keffer_a [facility] 2019 [place] 02:28:00 02:28:00 [facility] [employer] 2020-02-14 2020-02-14 Outpatient R [facility] [id number] Univers 00:00:00 00:00:00 PRECIOUS moran [facility] 2020-02-07 2020-02-07 Orders Doctor SHERI 1.2.840.114 [id number] Univers 00:00:00 00:00:00 Only Unassigned, CECILIA 350.1.13.10 ity of [place] [facility] 4.2.7.2.686 Thomas as [phone] [address] 2020-02-06 2020-02-06 Telephone [facility] 1.2.840.114 [id number] Univers 00:00:00 00:00:00 Precious [facility] 350.1.13.10 it y of Surgical 4.2.7.2.686 [place] as Specialti [phone] Fl dical es 198 [facility] 2020-01-22 2020-01-22 [facility] 1.2.840.114 [id number] Univers 14:11:43 23:59:00 Encounter Precious Ortiz 350.1.13.10 ity of [place] 4.2.7.2.686 [facility] [phone] [address] 2020-01-22 2020-01-22 Office [facility] 1.2.080.019 [id number] Univers 14:42:46 15:06:37 Visit Precious Hernandez [place] 350.1.13.10 it y of Surgical 4.2.7.2.686 [place] as Specialti [phone] Fl dical es 198 [facility] 2020-01-22 2020-01-22 Outpatient R [facility] [id number] Univers 15:00:00 15:00:00 PRECIOUS ity [facility] 2020-01-22 2020-01-22 Orders Doctor SHERI 1.2.840.114 [id number] Univers 00:00:00 00:00:00 Only Unassigned, CECILIA 350.1.13.10 ity of [place] [facility] 4.2.7.2.686 Thomas as [phone] [address] 2020-01-22 2020-01-22 Telephone Ruddy [facility] 1.2.840.114 [id number] Univers 00:00:00 00:00:00 Precious Hernandez [place] 350.1.13.10 it y of Surgical 4.2.7.2.686 [place] as Specialti [phone] [facility] 198 [facility] Results Test Description Test Time Test Comments Results Result Comments Source AFB culture + smear (non-sputum) 2022-04-22 09:41:46 Test Item Value Reference Range Interpretation Comme nts Result (test code = 6463-4) No acid-fast bacilli isolated in 42 day s AFB Smear (test code = 46478-9) No acid [facility]2022-04-22 09:41:46 Test Item Value Reference Range Interpretation Comments Result (test code = No acid-fast bacilli 6463-4) isolated in 42 days AFB Smear (test code = No acid fast bacilli 33782-6) [facility] CULTURE + SMEAR (NON-SPUTUM)2022-04-22 09:41:46 Test Item Value Reference Range Interpretation Comments CULTURE (BEAKER) (test No acid-fast bacilli code = 1095) isolated in 42 days AFB SMEAR (BEAKER) No acid fast bacilli (test code = 994) seen AFB CULTURE + SMEAR (NON-SPUTUM)2022-04-22 09:41:45 Test Item Value Reference Range Interpretation Comments CULTURE (BEAKER) (test No acid-fast bacilli code = 1095) isolated in 42 days AFB SMEAR (BEAKER) No acid fast bacilli (test code = 994) seen AFB CULTURE + SMEAR (NON-SPUTUM)2022-04-22 09:41:45 Test Item Value Reference Range Interpretation Comments CULTURE (BEAKER) (test No acid-fast bacilli code = 1095) isolated in 42 days AFB SMEAR (BEAKER) No acid fast bacilli (test code = 994) seen AFB CULTURE + SMEAR (NON-SPUTUM)2022-04-22 09:41:45 Test Item Value Reference Range Interpretation Comments CULTURE (BEAKER) (test No acid-fast bacilli code = 1095) isolated in 42 days AFB SMEAR (BEAKER) No acid fast bacilli (test code = 994) seen Fungus culture + [id number] 03:21:34 Test Item Value Reference Range Interpretation Comments Result (test code = No fungus isolated in 6463-4) 28 days Fungus Smear (test No fungi seen code = 1406) [facility] [id number] 03:21:34 Test Item Value Reference Range Interpretation Comments Result (test code = No fungus isolated in 6463-4) 28 days Fungus Smear (test No fungi seen code = 1406) [facility] + [id number] 03:21:34 Test Item Value Reference Range Interpretation Comments Result (test code = No fungus isolated in 6463-4) 28 days Fungus Smear (test No fungi seen code = 1406) [facility] + [id number] 03:21:34 Test Item Value Reference Range Interpretation Comments Result (test code = No fungus isolated in 6463-4) 28 days Fungus Smear (test No fungi seen code = 1406) [facility] + [id number] 03:21:34 Test Item Value Reference Range Interpretation Comments CULTURE (BEAKER) (test No fungus isolated in code = 1095) 28 days FUNGUS SMEAR (BEAKER) No fungi seen (test code = 1406) FUNGUS CULTURE + [id number] 03:21:34 Test Item Value Reference Range Interpretation Comments CULTURE (BEAKER) (test No fungus isolated in code = 1095) 28 days FUNGUS SMEAR (BEAKER) No fungi seen (test code = 1406) FUNGUS CULTURE + [id number] 03:21:34 Test Item Value Reference Range Interpretation Comments CULTURE (BEAKER) (test No fungus isolated in code = 1095) 28 days FUNGUS SMEAR (BEAKER) No fungi seen (test code = 1406) FUNGUS CULTURE + [id number] 03:21:33 Test Item Value Reference Range Interpretation Comments CULTURE (BEAKER) (test No fungus isolated in code = 1095) 28 days FUNGUS SMEAR (BEAKER) No fungi seen (test code = 1406) AFB [id number] 00:13:00 Test Item Value Reference Range Interpretation Comments AFB culture No growth Specimen isolate (test after 6 weeks InformationSp ecimen code = 543-9) of Source: [place] geSpecimen incubation. Site: Liver: pe ri-hepatic mass biopsy and culture [facility] [id number] 00:13:00 Test Item Value Reference Range Interpretation Comments AFB culture No growth Specimen isolate (test after 6 weeks InformationSp ecimen code = 543-9) of Source: [place] geSpecimen incubation. Site: Liver: pe ri-hepatic mass biopsy and culture [facility] HospitalHist[facility], [id number] 22:48:11 Test Item Value Reference Range Interpretation Comments Histoplasma <0.2 ng/mL REFERENCE RANGE : <0.2 Antigen (test ng/mL Histopla [facility] code = 5515595) galactomanna n is frequently dete ctedin urine from amanda ents with disseminatedhis toplas mosis. However, a negative result doesnot exclude a diagnosis of histoplasmosis. Manypatients wi th acute pulmonary disease or chroniccavitary disease do not exhibit antigenuria.Spe cimens from patients w ith other endemicfu ngal infections, suc h as blastomycosis,p aracoc cidioidomycosis , or candidiasis, guy fernandez alsobe positive in this assay. Thi s test should be used in conjunction wit h otherdiagnostic s tests, includin g culture, molecularassays , and histology in guy [place] a final diagnosis . TR (test code = Performing Lab TR) *[employer] [facility] [address] [place] [address] Penny Gamboa MD, PhD [facility] CenterHist[facility] antigen, [id number] 22:48:11 Test Item Value Reference Range Interpretation Comments Histoplasma <0.2 ng/mL REFERENCE RANGE : <0.2 Antigen (test ng/mL Histopla sma code = 1004976) galactomanna n is frequently dete ctedin urine [...] g culture, molecularassays , and histology in [facility] a final diagnosis . TR (test code = Performing Lab TR) *[employer] [address] Penny Gamboa MD, PhD [facility] CenterHistoplasma antigen, [id number] 22:48:11 Test Item Value Reference Range Interpretation Comments Histoplasma <0.2 ng/mL REFERENCE RANGE : <0.2 Antigen (test ng/mL Histopla sma code = 1758981) galactomanna n is frequently dete ctedin urine [...] g culture, molecularassays , and histology in [facility] a final diagnosis . TR (test code = Performing Lab TR) *[employer] [place] [address] [place] [address] Penny Gamboa MD, PhD [facility], [id number] 22:48:11 Test Item Value Reference Range Interpretation Comments Histoplasma <0.2 ng/mL REFERENCE RANGE : <0.2 Antigen (test ng/mL Histopla sma code = 2356148) galactomanna n is frequently dete ctedin urine [...] g culture, molecularassays , and histology in [place] a final diagnosis . TR (test code = Performing Lab TR) *[employer] [address] [address] Penny Gamboa MD, PhD [facility] CenterHistoplasma antigen, [id number] 22:48:11 Test Item Value Reference Range Interpretation Comments Histoplasma <0.2 ng/mL REFERENCE RANGE : <0.2 Antigen (test ng/mL Histopla sma code = 2743918) galactomanna n is frequently dete ctedin urine [...] g culture, molecularassays , and histology in [place] s[place] a final diagnosis . TR (test code = Performing Lab TR) *[employer] [place] [address] [place] [phone] Penny Gamboa MD, PhD [facility] CenterAnaerobic [id number] 12:20:38 Test Item Value Reference Interpretation Comments Range Result (test code = From Broth Only A Refer to previous 63-) Same organism has culture of * - been isolated from Staphyloc occus cultures(s) of the epidermid is same body site and collection date. Repeat identification and susceptibility testing performed only after consultation with the clinical microbiology laboratory. TR (test code = No Anaerobes TR) Isolated Lab Interpretation Abnormal (test code = 27053-6) [facility] [id number] 12:20:38 Test Item Value Reference Interpretation Comments Range Result (test code = From Broth Only A Refer to previous 63-) Same organism has culture of * - been isolated from Staphyloc occus cultures(s) of the epidermid is same body site and collection date. Repeat identification and susceptibility testing performed only after consultation with the clinical microbiology laboratory. TR (test code = No Anaerobes TR) Isolated Lab Interpretation Abnormal (test code = 72324-8) [facility] [id number] 12:20:38 Test Item Value Reference Interpretation Comments Range Result (test code = From Broth Only A Refer to previous 63) Same organism has culture of * - been isolated from Staphyloc occus cultures(s) of the epidermid is same body site and collection date. Repeat identification and susceptibility testing performed only after consultation with the clinical microbiology laboratory. TR (test code = No Anaerobes TR) Isolated Lab Interpretation Abnormal (test code = 55305-9) [facility] [id number] 12:20:38 Test Item Value Reference Interpretation Comments Range Result (test code = From Broth Only A Refer to previous 63) Same organism has culture of * - been isolated from Staphyloc occus cultures(s) of the epidermid is same body site and collection date. Repeat identification and susceptibility testing performed only after consultation with the clinical microbiology laboratory. TR (test code = No Anaerobes TR) Isolated Lab Interpretation Abnormal (test code = 32084-7) [facility] [id number] 12:20:38 Test Item Value Reference Interpretation Comments Range Result (test code = From Broth Only A Refer to previous 63-) Same organism has culture of * - been isolated from Staphyloc occus cultures(s) of the epidermid is same body site and collection date. Repeat identification and susceptibility testing performed only after consultation with the clinical microbiology laboratory. TR (test code = No Anaerobes TR) Isolated Lab Interpretation Abnormal (test code = 86269-6) [facility] [id number] 12:20:38 Test Item Value Reference Range Interpretation Comments CULTURE (BEAKER) A From Broth Only Same (test code = 1095) organism has been isolated from cultures(s ) of the same body site and collection date . Repeat identification and susceptibility testing performed only after consultation wi the clinical microb iology laboratory.Refe r to previous cultur e of* - Staphylococcus epidermidis No Anaerobes IsolatedANAEROPALADIN [facility]ALTHCARE [id number] 12:19:41 Test Item Value Reference Range Interpretation Comments CULTURE (BEAKER) A From Broth Only Same (test code = 1095) organism has been isolated from cultures(s ) of the same body site and collection date . Repeat identification and susceptibility testing performed only after consultation wi the clinical microb iology laboratory.Refe r to previous cultur e of* - Staphylococcus epidermidis No Anaerobes [facility] [id number] 12:13:58 Test Item Value Reference Interpretation Comments [...] code S = 13) No Anaerobes IsolatedFungus [id number] 00:16:00 Test Item Value Reference Range Interpretation Comments Fungus culture No growth Specimen isolate (test after 4 weeks InformationSp ecimen code = 580-1) of Source: [place] geSpecimen incubation. Site: Liver: pe ri-hepatic mass biopsy and culture [facility] [id number] 00:16:00 Test Item Value Reference Range Interpretation Comments Fungus culture No growth Specimen isolate (test after 4 weeks InformationSp ecimen code = 580-1) of Source: [place] geSpecimen incubation. Site: Liver: pe ri-hepatic mass biopsy and culture [facility] [id number] 09:03:53 Test Item Value Reference Range Interpretation Comments Case Report (test code Medical Cytology = 104) Report Case: [id number] Authorizing Provider: Kiya Crane MD Collected: 03/03/2022 09:19 PM Ordering Location: [address] Received: 03/04/2022 08:47 AM Pathologist: Chad Landry MD Specimen: Peritoneal Washings DIAGNOSIS (test code = q6zhrPXuFRVhhJG7GgDdUO 3220) Lty6ewq2XigFUwbVTbHLfw fQQamgShby84mUF5gN09MI 0vWKAmWvD1PEKeqzN6Jkv8 OPTjDSRduZHiC451m0hnk3 krecThrPH2eLuoWHDdwcoc QjO4CJixBSAwfdrkMXx2OP ccSVOwgMY8NIWttJFdK3Gf SDPxES8zdjz1QCZ5ZSnjML QwTeK1NEBcwGVuXWEoaZeo WNksu018KCO1DmGyXCRxyk KyuHxudF8zTwRpOZLOKLMH BY7YTTDTLPuFU6vICjrWEE hNVQZMC6GCPqVqRF1VWPDJ SJtpIojFN8ipWwcmNFDyOW OkRQKGXArQGPzFWYBCZ7Nc ECDQCSxENP5CKNeyJWTtKW XwDUQXDSSylFn4WTZfBYRp dGhlbGlhbCBjZWxscyBzZW VuXHBhclxmczIyXHRhYlx0 YEAxxAUjHFDoEjq1BBYmIC LmJ14yjxlkQSF5jC1wv6fz h7FaCPtoXEK0XCPlj72jVB xvntA6WVfhVx53EKtrACU4 MVxwYXJ9 COMMENT (test code = i5xegFSkIKHkuTG3XcXgUY 3359) Ofz7ubp3IrpLRucLEdYRyw nDSrduVuho98hQY0rN95KI 3lDGGxAoG2NDUvkfF1Cdf3 PCDfSCKtsHUfS338c0tma0 dszpXbyWH5iOgnCUVffqpi FdC1YGylUDKougieIQs1EL fuGGKycHX7HKRkgRKtO5Mg MDXuTK7miba6LKU7DAevRY GoNtR6TJYddPBeVNAbvDuz IEqfo503IYI6JtOnRKOnaf IejQadgU1cHrClHCKYeVSd A0NrvMRnwG4kxeAdnOamYJ NziyWeOGWxiAZqnRe8hQRi NJNhTPSehcSjq4F6rIxpxq 6dJAOzsiUleER9zZ8wyC3m cGFyIFBsZWFzZSBhbHNvIH NlZSBzdXJnaWNhbCBjYXNl GoLNNiRhAQS9KsRglDYiqO == CPT Code(s) (test code n1fbrMScLHGiwZC3WfCnIH = 3357) Soh9tem7BllVRxfXRmXTcy jKKfkoGvwt97nHM8eW32KT 2bQOVaPlD0YHOmlxE8Den6 JCNdHWQuaHFsY650p7qcz6 cqdcMjbXK6fIwtMYUyqiux MlY2YXseDZEpsnfoNNd0EQ jeROUjpFN3RHYtpPFwR9Ub FUNiEU3nbky4XNO5YHtcSY QeCgJ7RYQdpMCxGZFtzIos NJfcy937LJX9BgYqWVIuke StnAxqkZ0eKuIrYIM6ISZo OCwgODgzMDVccGFyfQ== CLINICAL DATA (test p4lblXNnZJGpnEN4ZyWdAM code = 3355) Gxd7gzq9ZbgMVfuKVjOBvh bMMeveAlta36lFV3oZ97SS 0cMKAoIuU5SUJgvwQ7Bff0 WDZaIZIerFJpZ021p6lgv0 xoqiMuqTQ5kDeeHJOdvviy BkA5EDrmOJBckxotVDg8AM isBOTmbWR1ANGylDOuC4Lu ZARbSG0mkel9NQE4UOwpBT IaBuD8STUwiBQbVDUrkOuo LCrif139QME5LmAfGYApng GqoPdmcI8qSzRlJUJ1HjW3 No4mMTTfcNWwVQQ2yXZpBQ BNSHggSFROLCBITEQsIGh5 hO67wWntd5rubNAwYFvtoI brqdUgDD78ZCaew7Ecteqg b8YbPC7mpSIaMCkmzRRxkv ljIFJVUSBwYWluLCBhbiBp bmNvbmNsdXNpdmUgcGVyaW shpLO0qCNpuTFiugBlm17t RIJvfJ8dGAHaifCqRVEvjK 4bHFHrARNxkoAvbc8zXIJj f4lvOWJuqhGgwiVxJD96YK QbpWkft9azaoOiz5RxXuUx zNU2PI3cHcasFXT1 SPECIMEN SOURCE (test j9hunCOjOXIciXG0PzRbGZ code = 3377) Sry0scf1OfdPDyeZYtGKin eEOfixEdgh27tKA1vO28QW 8vROVvNhG2CEHkdqI8Ecd7 ZEZdLZUguXHtT623a8ctr9 inlzQqsZG7fUsrDVOklufx TrO6JHdeEMYwplksFZj4DP ggPXUmdWH7BKPizAYlC3Gy CIUnHX2rrvr3VSH9OVvhEG VrJbU4JIGrpRQzVMMecOnz IDoys450UMH2VtJaEHOomt EriTjpeU8gVfIdRRLXCNLZ AA3NUJJZLYwYQ4eRZkyEYJ Bhcn0= GROSS DESCRIPTION (test n1rxoFLpHGWxpUZ3CaOiXV code = [id number]) Sth1kam0QhzGPwoHLxGIss qLNhjoMtgl22fFA2zQ64NZ 2tNKKnVwK4BIXjgxJ6Rzq0 ELTxKCJhuVNyC302j7fcm6 lfawNqaNZ4hMjnEPMydpfj DnK3SGpjIOZngsqjTKc4HY kuWUCibBC4MVNhqUUyH6Cs QKRoNW7siia5KCH8BTsgYO AxEgW4XNRmqULzRFResGao HJefy410YKD7PpBlKEMilv V2BLivLYEbD7MkF0JzQQkh RAO9XHBxXOMgYFDkNUOnXG OcFAucvxL6r7ymRRIgeHYk YLA0ZZxvzCXgLCIyNSMiJC irVhKIHuVvTmG7ZGw5CXH8 PhC9JZa4YYFCArPoHtKeOg JeBTLkYUPbEJa0PKe3MLpT CpF8OQE0NAPeSfAhOHLrGD SmIBs6UVWoBYiliNFeBRLb DSNaIObjLMldR04dwLiczR 4zGuIrLPPFFoBTWYNxxU0c PQYgRXugt4nwdzwyIpreKE JcZnMyMCBSZWNlaXZlZCAy NuTnUK8jOVAxnA2jvUIvma QnwL30WYdta5m1kHT6tL81 IHqamAR2fR0qjSIxApc2jX A6SLInRGQkzkRpTLNfK6s6 o7EbnZ3mDSRpBSMfCGujMV Buy7OdSCXhNQnav3xzo1Wf q81jLnJzZNLqSEOlMNThGO lgXAJmk3ObAEohgmYzqRuv LNOtnvSlw6JkSOoixmPipT PuLSv0USKmqsBcYq76YyXl ZdCkzUMep3ahiWcsg1AbuM PyGH74VOQaeTKvBBW7YC3w fVxwYXJ9 MICROSCOPIC DESCRIPTION l9lrlICxDLVgjYI8UmAeMK (test code = 3371) Bjv6ctp9MveXFrlNOkQSgi lIJysrFboy22nPU4nQ84YG 4bXULlScM1IERaoiR9Mnc6 RAOsSDVxwWZmO966r4yih8 tsurLskZC5dHthGURtkxtp GsA8KXnwMJKcurbdGWc5NU lhZMAhkYU8WRVuuLEwL4Ve EBPlKE2qgih8CZB3ILpcDV UuToG7STPvzIGkEHWysIvt RJuoh315NBN8YpSiIYSlan CmzSnhrC3tUrRfQYAMKHUm k4NkENGjSXMonoecUERrFG Bhcn0= STATEMENT OF ADEQUACY Satisfactory (test code = 2757) Gross assessment was [facility] performed at ([facility], = 2777) Department of Pathology, [address] [place] [address], Technical component was [facility] performed at ([facility], = 2778) Department of Pathology, [address] [place] [address], Professional component [facility] was performed at ([facility], code = 2779) Department of Pathology, [address] [place] [address], [facility] 09:03:53 Test Item Value Reference Range Interpretation Comments Case Report (test code Medical Cytology = 104) Report Case: [id number] Authorizing Provider: Kiya Crane MD Collected: 03/03/2022 09:19 PM Ordering Location: [address] Received: 03/04/2022 08:47 AM Pathologist: Chad Landry MD Specimen: Peritoneal Washings DIAGNOSIS (test code = z0pcqFUkPOWofDX3LuQxZZ 3220) Tbg9tjf3DznVWczDEgQWaf bPMqagYzlj47sJD2hC09NW 0qQFNfMbX5QANrrfC1Ybb0 IPDhYMNcfKHrB329l0fdf9 fmjfMxfSD2cSysDMVblqnq VbK6MHwrDVLsiypqRGg7WA zcEPBgfWK9OWTqsDNkZ5Jf TMKaHZ8uqsh7KJR1LGezRL DjKwV8AWOeqJEsELUerGdi IFogf033SFW4RkMpPTJnob MjsUcwlT0dYsKpDZFHXNQX LZ6KDHATPAtDM7jEVamZWK rGUJLYD2KUDjRdWA8HTMHI HIygAxoTZ3daZsmsXVAsLN PvGCGNKJhYDZlCFSEEP4Am FLFJILeLEV3SJAzsIRUnQH ZaOYSZNHHomLm6OGSlTTLz dGhlbGlhbCBjZWxscyBzZW VuXHBhclxmczIyXHRhYlx0 NOIvmXBiFGBiPme7WMJdMY RmF23mystsXXS6eB3zp7lj u7KlHUjcQYC5QYNwi07bQN rdmuR9RNgzZq75EUfdHCK2 MVxwYXJ9 COMMENT (test code = p0atySPmJVJtvER6WtSkRN 5983) Joo0nss6NplMDkxWUeXNmn wSIccoEulg74eOU9jM63HX 9zANUvRcE1ZIIfyqV7Irj2 UVTeOZNbyWRmJ136j8fxy0 zwfvWswNU3jPjzOMWqbsjs KhX4XHwmXECbmccfCPk1OO fsTRCsrZB2CEMdjVHvI4Nw RZTqZU9awwo9JRM7CLacJM CsTdF8MIOnfIBcVHOwlAvf IQynx577DYG9PaPvMNFeoi MuwQrxzT1sWvWyKPVSmMKv T3JnmCKvhS1bqxGdwAeuIU NekaHpOLSchLUyjHl1wSOl ELJmIAIzxeJzn7L4jWakrz 4vRMHzkwAbhWE0hC0mhI2v cGFyIFBsZWFzZSBhbHNvIH NlZSBzdXJnaWNhbCBjYXNl UaHHEdEpMFM2HyHhmDYvfG == CPT Code(s) (test code q3ymiHFxJNJhePP5GwExAZ = 3357) Qlb3ryk9BopNGhyFRkEAfg vOMbimRvqf07rOB1dU07FV 9aICGgXqI5TFTgraY1Ztf7 XZWnZNPldDBcK091d5sys1 geqqMahFA6hCdaRMSdroap HeG4NHemJHNxqaetIPr7YL dpCHApmHE2AJKpoNAtJ7Gy ZPArHM2nazc3FBW3KSolOO LgQiS5AWVllNOkPKNjlNux XYvww886FFL0SoMuWEVfut LuoEqdcE2yZfQzCXA6BBBt OCwgODgzMDVccGFyfQ== CLINICAL DATA (test n2hfqFEiJJDynXN3DuYeTV code = 3355) Kie9kog8NvpWHouFNoNAhj lNPsuyGvrf91zTH4gY10LC 1lFWKyGpE3VSWvlmY3Gha1 YJIyOWGaoFRtQ147n5oeb4 lujjCotFH6wFkhLMDisisi FsK3YMpaJYWugboeVCr1AE uuVTOckXF9KXChmEXoF4Sn UWBgZT4kuji9SGE3UUdhHX HaShA7LDNobANwCBBauEka LFafs771YEV1RdVwURLgvs AwnUqtqG7aYoOjACZ2QcK7 Sk5nBIAkgYSaXDS7uNNxPH BNSHggSFROLCBITEQsIGh5 jG45tRbez8jmtXSpLThaxY jtzfRkTY15VHblh6Recrzc q8RaZK0pkBRlTDvcfHTugv ljIFJVUSBwYWluLCBhbiBp bmNvbmNsdXNpdmUgcGVyaW hqxNL7xNIcgIVeivVbx42f COXxzZ6eSVQvhnXhTDWrlR 6mDEOgEFKnfbFffz8cEFKq c7lgDIMheqGvnwKzSU38LV SwlWmik8yzkmYkj5ZnJsFc rQA6SM2eJfwxHWP0 SPECIMEN SOURCE (test o4sbyJVhBGRrbFM3DbVuPI code = 3377) Ljy7zqy4QufYZdwHNtYVkb hOSthcKsou61mOP6xY54EX 0mCNBkJqW7PZKvpvA5Xym6 EOIgVUSclAVjX249z3klj9 umujFlzEM7mVjqZADyzhib IsW6YUelWURaxjafRYs6DO czKPJmxZP7AAQudJGwA4Fn GVFbBX4hvwp8IKB0ARgzLQ RbWcN2UKAnfNLeNXIdfRat NUqwh912PAD7LhEtBWNngz QtkLyhxE4cOzHsALQJLCRY CL7BIZQXKPwDB9kCVayYBH Bhcn0= GROSS DESCRIPTION (test z9dpcWAaAKHbuOL8OgRfPQ code = [id number]) Xuw8bxd6JtkJXdsSJjTQay xSShorIbhn44yLY1iX72ER 2mMLIqVyI6ANGuamW3Vul9 HFCjAPUxqBEjO084e2kod5 nqkcHhpEF9qWzgYEGdpqlb YoG4BLhvLRRoelwxFNf9UX myJEIdsKQ5VUGzdMYzR1Mc CQBpIE7btwe6HKH9UTodRL JsDiV5CZEytUZbDPXzjGyp TLcka394RFW0FoTqGHSzfg M7IOuiWRIaB8QfP1MmDPqi KGJ5MSQuEDWgARUfWBGnZG PqOUetmuG6o7tpYXVloUAx ZCH1QVkfrHEtJMDeCWMbGM eeLkZRQnEtAbN5SMr6FGQ9 KvX7JFw7RUDXSyNpByLhOp DzEGWgWGYvBCu7HCr4QGmX BqQ2DQG9IIOdAxSqCXNyVG GnPWz8BIOuURbvnBKgCYBq KIHrQZozIWgrV70ktHyrgR 7gLwYqXYREHcLDFBPjjD0k CXBjQZzpf2owlimyPyvuUR JcZnMyMCBSZWNlaXZlZCAy OjAuNI2gODVgmQ5fuVAuay NfvF79LFfxg1l9fQV9uH64 PNgbzFK9pG7rvPOgGhv3yF J2TRZoKUXyjpYzAUNoF0t3 x8UjpT5tNPLkSPAqYScoOS Ulo2WxCZSvCQfym7rkp3Ic m31eYbWfBBQhMUAvNBTcXY gyMLDkp0QuLWegmtZeaLhe YLMixhGrv1ZhTOuoihTrgB AhTWt5YHDrrcLkKp67UnQk RfAaeBMjq5dzwSicb3WqdA LtRQ53JZIzcBXgHRE4HA9k fVxwYXJ9 MICROSCOPIC DESCRIPTION f8ndiKJaULPylCY3YbQzHO (test code = 3371) Ted6ged2YjxJYwmMQwMCuo hVOvsjVpbl59jNF4fG25RL 6oUYAdCaM5MQZkdnH9Waz2 KRTkBXWcoPSuY290z0ibo4 svwgLuuJQ4dWkwJMBoonia VnP6XEovIVDlfwvfYUk1YW uuTGMkkNN9LGXqhQBzC4Aa DZTvQK2jdnc0VXR9MDhaQX GjQpR2NHOjsSQoHPMfpXhm CIdpv098WUT1KfHdEEAxwc WlbVkxoP0fSsJyQNVEUZSx j0BaPCDbZSDliqspAOSqVC Bhcn0= STATEMENT OF ADEQUACY Satisfactory (test code = 2757) Gross assessment was [facility] performed at ([facility], = 2777) Department of Pathology, [address] [place] [address], Technical component was [facility] performed at ([facility], = 5528) Department of Pathology, [address] [place] [address], Professional component [facility] was performed at ([facility], code = 2772) Department of Pathology, [address] [place] [address], [facility] 09:03:53 Test Item Value Reference Range Interpretation Comments Case Report (test code Medical Cytology = 104) Report Case: [id number] Authorizing Provider: Kiya Crane MD Collected: 03/03/2022 09:19 PM Ordering Location: [address] Received: 03/04/2022 08:47 AM Pathologist: Chad Landry MD Specimen: Peritoneal Washings DIAGNOSIS (test code = [id number] 3220) Gbo5klb1TsuEOnlTNsGUtu lQEsbtVtbw89mCG8bM65BI 5iAAXiHkA9RKFtruJ7Fzl0 RDVpFPQmkIUaS130h7ukq9 npzxYjjWP4gNdeMUGbagqc UcE6OWaoSAEtulpaDUf8QH ziDAXdrHE8DJBnqADlD8Dx AVRqVF1jrlp0ZCX7BEgbLH XuIqB6IWKsyDCdFCPpcXbf IBtfs121CMA4WlIzJDRvjw AsoQjtfG1uDtCuGKXHJABV AH6GVAZISMxKW3pRNhwCDD jQLRNET2QFGsPwXQ5WESIB UJygLlwBJ1joLfohAHJlXC EgPXUGXKbZGFlDPMYMW1Xs CJVHRAhEOJ9AORuqYPSgZU EbWONPTMDedHg8KRBlAVTs dGhlbGlhbCBjZWxscyBzZW VuXHBhclxmczIyXHRhYlx0 DEQldVJdEGCgGei7HPPqFA FvY46etiwnSRX7vH9ps7eo v9ZiCZnjHUQ9UAHhp78fNP ucaeX2VGlzJx69NDepXPI1 MVxwYXJ9 COMMENT (test code = [id number] 3350) Ivq2ukk0RktHAkiPYtNWme hNWroeXfzf35sMG2sG31ZB 1mTZDyGhH8UDRuyvQ7Wto9 GVCuBBAqpNFrV178b4bje8 fmszUcoFV9cEosDTAmxefp ZyF1IZssDHHlhxroMKq3VF xaVSZlpTN0RZRiyEMlM8Pe FUAaAB5qoiv7KEN5CSmeBL TxXiW8QJEdwQZkGYMiyDtn GQqzx156VZW3XvEdDPMskv EjmTckrC7iJjOrMCAPgLNm P9FxhBTrjW3ffxWuqMfhML VyouVkWMGogXOvtTk7iWPw DDKoORXamjBjf1B4jFlyye 1kNXXjgnIjuRG4iZ3byC7l cGFyIFBsZWFzZSBhbHNvIH NlZSBzdXJnaWNhbCBjYXNl LnVRMqZuCMO2HfLynZXhqQ == CPT Code(s) (test code f4aloOCgFSMutGQ1YwLnMY = 6320) Aky8ijh5BzsJMmcMNnXTlq zCWtgnZunu09sZC7wZ69NB 1iHFUeKdW6MTAxsaD7Coi8 TFOqNJBlrBJxR008g2ocj5 rirvMhfGE4xFixVGZddgnk LiG7DDukWASggxunVSn9HJ piCOVmnTH0SSKypFXxJ2An PQEhIB9mwmg6QMA6SPcmSR AmFmI9TWLtwPQzKENggFpk AZvcb913OBV1ApFvZXVqlh AluVlidI5kBxUiMAN5TYHa OCwgODgzMDVccGFyfQ== CLINICAL DATA (test a3tosOFrNDLitOM8AbOjXR code = 3355) Lcy4rkc7OznYWriZMtHIrm iVIsqsLekj57mYI6oG75XL 0oIXTpCnG2FLXdefD1Dmr3 FJBbIPTcbPUkR092l4qgs0 tcmtTmtSH3sHxqNWGbanmt GdD7WQqfCZJesazbBHh9KC brWMCnmDC9CVPuhEVtD4Zl LMRwQB8atli7OCW6YXnwQS HpJsY6ZQAnaTGyTBGmoSpk ECzbz342ZFZ1IiGvKMFzje SxkPvvxL3oJbHnIDO6DxY3 Zn9jFJXjoNPmRWG5dANhUD BNSHggSFROLCBITEQsIGh5 zV56dZnfz2zeiHGrGWxohC dpjqRwRU02QEdwi9Nupgfs u6XxXB3atBNcJYybmAWxjk ljIFJVUSBwYWluLCBhbiBp bmNvbmNsdXNpdmUgcGVyaW huuKL6vQJjgEPmruXlf57v EQVowX0cZOFjurLmVNOixF 5zTTGwVINpvdEkhz5aGZCn x2vsMMPjiePdggOtEA04BL WbqPjcp8kwgqUer1GdQcDg vKI3EL9sBvnrKLM9 SPECIMEN SOURCE (test w9nkbONiJUAzsZV1IoAwER code = 3377) Myh9brf9YqtSHhgEHtIYix qBDlvtImgt50dMI9uA06GB 6cUPDhWjB1KBNuemK1Bvf0 PZZsZZBhaVZtA440q0esn7 wzvlFenGI8xDymFGMxlepm HaK9NIgnBCBwvhtlDKr9UB umPJCvuAC1IKRcjHGlQ6Vx BRBlDO2gasn1MPZ0SCwjAJ BbMbG8NDZmdROpCMPldSyd DDhtc535YRY0IoPnWQPkuh XcbFzsoM8fAcInVXBOCKXS KV3LKAZMLEpVW4zVUmnDFA Bhcn0= GROSS DESCRIPTION (test n7miuVDnWFWniWO4EfCgHE code = [id number]) Wnh2yax4AvsQMezDUcPCei jFLnieNaep93dBU7iI97XW 7eETVcIsI4ZRTpotT2Anm7 XAKwTAZysQNhZ586e8koe6 erhyNzkZZ0iZqoOPItqezj FhS3IIxtTXQjqqnkJTf4FM esFZLdjVQ4GIVmjAAoY5Lm SRYmMA2nliv1LIG5HOdlBE LyAzN1VCVncWPdFFCnbFve XXqbr394NWY4GiRzTURrjo F6ZZrgZKGvS7PgS7NpXSum RFT2DKVzUYPrZMRbNZWzVP WuHZabhgP2e8fyTMLetMYy RGQ1MUhbuFGoUQWkYXEsGU ugChHPPzDeRcE4TEs4DSM2 DvF1NRi0LGQJDzQsXmBlMz DvAPWdXWRhFHf1NWe3UKtE GvN3WKR9WVFcBjTdHGXiIX OiKUi4JLDoTNzbqCLlNNPj ZLOhOTtmXEwgV74whPayeY 6fXmWkWTQFTuOCSGObrU4u LYSiGNyzn3rmkkmzCknbEP JcZnMyMCBSZWNlaXZlZCAy XmQfNO9tTSUacP8baAJcos EilI09ZScvj2a9xAE4nC07 VMrjwFM4oE5lfXJdBdm6mQ W4MNZzFDJrxdVzQQIwQ8k4 k2QkdI0pCVJeSYZxESyzTN Zzx2SjPFDyJKvez6qej9Iy t02nTeNxMYOdAZXaGVPcGE slVALyb5LdVSscnxSrbUow JOVrrjEjs8IxZHzxhlIzuI TvEHa1EDRsbtNbLj31DaTk DsDpzVMcv0jtqYnso5IwaP CdPY79CPGfdXPpKYO8KZ6q fVxwYXJ9 MICROSCOPIC DESCRIPTION x4qfpIGgIJPasGJ3YoYvBS (test code = 3371) Ttz8rdc5DrsIWqaGNsOPqx pUAjqoTpqw47sED4qN59YW 8nJDUyBiU1DTUzfsE3Dls4 RQQnDTMupBFkG501h1kzt7 mnxuVhvRR5bHctDEUavsnx JcE4ERucIENelbebECg3HJ lyXEVgjDY0ZDWtiJQoC9Sr NFZuNN3jkhj8CBI5JAhtTY EfXzO5FGIbrOFaNRHddIfc AWhas082LBK4YuEePLKnfd ZgxCpliP8qQgKhXRJYFJLn y0JlUCPfYVHpapsbCRHrUC Bhcn0= STATEMENT OF ADEQUACY Satisfactory (test code = 2757) Gross assessment was [facility] performed at (test code [facility], = 2777) Department of Pathology, [address] [place] [id number], Technical component was [facility] performed at (test code [facility], = 2776) Department of Pathology, [address] [place] [address] [id number], Professional component [facility] was performed at ([facility], code = 2779) Department of Pathology, [address] [place] [address], [facility]53 Test Item Value Reference Range Interpretation Comments Case Report (test code Medical Cytology = 104) Report Case: [id number] Authorizing Provider: Kiya Crane MD Collected: 03/03/2022 09:19 PM Ordering Location: [address] Received: 03/04/2022 08:47 AM Pathologist: Chad Landry MD Specimen: Peritoneal Washings DIAGNOSIS (test code = u7wvqFVkIDAnpCB9StSeCC 3220) Fsp5mmt4HwcRBerBPxHIrf pQJujuJdms44yWF4gN05RQ 5hBDKmXdQ0RQOfxhR4Oqt5 TCLcPBOttAUpK227k2fmo1 woqqDtmRE1uLwpGWEfiqjq GhE9PEezAKCtxgvvCFu1FF hbMPWwlLX1HVMfcJTuP7Gl VOJjSZ8sxps3ZRP5IHzqKI XvJiH8UVNuvLSjUFUzjUgf TTsjg693JCF4PbEiBVAefy GgtRainA6xBhGiEHAYIQOY UN7RVUYMBZjHB4qNPliFUA mBQOMNR9JKTrVoOX6KJLCM TXhzZabKJ1enUqycLFWoIF IiVKYTQYgIGFxLHVVWB0Qk PLKULXaKBC5SIRfrNDFwTW BcJRBWNRUirRg0XOLvAVRu dGhlbGlhbCBjZWxscyBzZW VuXHBhclxmczIyXHRhYlx0 BIQorIHnFXIyEwg1KPPlHW TwM14wlgtvGLW7hP3db8rb t9ReKFbhZUP3UVCbg60dWS bvopY9JEtmGh07OCgjDEJ8 MVxwYXJ9 COMMENT (test code = h9tbhRGcMPGhlDI1DcLkYC 3359) Rwq3ysz6GecUVbcDPgEAco hCQgflLneq79rOG4yT95JZ 5uHJCqTkT0ZUGzprK7Jwp4 ZSHhPKCsjOQlV219g0opy0 ovskIwqYG4lFpoJRSvsisz EcK8HAsfGNKamzsfBKc5DZ gfHTQuaWF3CWSmsKQpT5Dx MWBfGP5zfsr3AJP0EAzmSQ OtFfP2ZVRuoUEcFDSlsGty OGizb692KXV6ZwOdXWQltd CpoFrjqZ7vElQkARJAuAJm Y1QbhTSeyC1teuNtrIfnWH SfnpXmHLQpmBMbwQi1iLTn FWBmALOhilHyp7O6cTxpfs 8vMTTvxrXtfOS9jE1qlM2i cGFyIFBsZWFzZSBhbHNvIH NlZSBzdXJnaWNhbCBjYXNl XkOTWtVlCZB6SoOveWVpaR == CPT Code(s) (test code n9mudMTzPNXnmQA6XaIxIF = 3357) Buo9cmp5KqtQLxvWHwJWks hWWnhfDpxy59fEB1uV39LA 5rGYRcGsP1FCKfjrF9Wnz5 GRWpEYYdyGHmR325d0yfk6 jrqwVygYK6yPxjSBBqjdxq MtN8CTtcXMOptynhHMw2JF vxPJUlfUF4FQXzzKPjK2Cj LIHnXD3yxqb4AYH4XMhmWP UyLkW4GIMrzGRoCHAmgXcn RDtvc354ZLS7HzKjMAAdzc FsmCdrnU5jGsOcWJT0IMMf OCwgODgzMDVccGFyfQ== CLINICAL DATA (test e9yhdUSrSSWstSM6FlErIZ code = 3355) Fbz6myl9SsjKXrtOAhWMsp sQXktaDqow08cVK4yU12KH 2tGQDeBlI6UWBaybF5Isy8 NFAxXYOjrBWfV629s0qjg0 zvncJthVC9nFfzIHAbsiln RyA8TLypJYZnxbpzUGp8KA onFTZdyKS8MAWgbXUpI6Eb VIUzRI7cgzz5IOT0SVonOK ZlJlY8VGYnnBImKJFtlYhc SWxwe649SOP1PvFwWHKpbz LuzEllpN2rDfZkUQO9MvH5 Sd3tNGLtuVGzOKH9fHMcWM BNSHggSFROLCBITEQsIGh5 hF06aHvjw5mmcRVmYZkbaK qteuOcEU44OMpsx5Rxouge m3CoKQ5foMAvHBxvpVFkrk ljIFJVUSBwYWluLCBhbiBp bmNvbmNsdXNpdmUgcGVyaW jyyJB3pDNwmTLucgMcm89i VPIncZ1bSORxjfIzBSFmcK 8vUQEbABJnboIjea0gVLXq c2mzQMXzenZpinNsSK13FQ OovQuyd1gcdtXek3JaQoYa dVP9GY7xOkgbEBD6 SPECIMEN SOURCE (test t2kghZEpDKMuzYM5EfIbOD code = 3377) Tgi2wft9XkvGQzhMVjKQjs jGJgdhAyyt40yHV5zW55XR 7gTSWfQgT3TKDbefE6Yvv7 BRXgJNXtlKXeD076l5abq7 byidHpnFC7aSvaQTZxmlqi TlN0TEggPYAdtitxCLf2WW icYSFcoRG2ZPFmeYStH1Wz UFGkVY0lyqm7BKT4MUgkPY UbInT9EFCbnGAiEEAbkClk CVlkh354HWF4OlUtJCIxog FhoXxpoD8lMwMbHQDHCQEC YT9LTEZCMWhPL0aSLzwSCX Bhcn0= GROSS DESCRIPTION (test o4wloZIaHESjrIG7UhSwTN code = [id number]) Kph5zgt3GjiJQfjIMcCYhd lJBojlOrlt71kSZ9rT63JF 8wJTUqDrR4KVVivhE3Twb6 ZBIaOHRdcQAcY210z3umi9 twspOtiYC0gLfvUFCriwqc EbU0ZCotXEWotnffTKp0UB zgECNdpBC0MJWagUAwM8Cd SEAvPX5ahsj8EQA2HQveJU AjGcP6XTFezOZwQEZbeQbi TThma157IDD5MyJrMBBtrr I9QEleDANdE5JlF6VfMIiu XEY5RVMjYMTnXIKdXKTmEA RtUFgyzcD3c3cbNUZfnYOv JUO0YWfteWNhDQQnBYOcPW fxVbVMZjIdMmW0HDr1DOJ6 CoC5VCp0UROTPeLnUwXkAs CnZCFnSZCaNVj0WAu4SSnP NrC3EZY6JDOsZwWzIFHkBJ GiJQd2IPKaZUtnoUCcHWPl UJEzTOnvKTddR85blEuzzD 3wXgTxDINDDnBSUGQovX2z QPBcDMuis0rugncqLdgbFO JcZnMyMCBSZWNlaXZlZCAy GbNaHO2wOJDfeH1mtTCdwf LiuI09PXwsh9r4gCT3nP93 ZZufsNY9dQ6laBClPlg0xL G0FEKuZOWpeyNaEIVvC6s2 k4ZkcC1eOJDfIRYpJDnyNL Ftb7ItFZHzRTtll8umb4Xs b98zJeQfBATvOPTtOKNhOH daKYVhe4KnVCacboSxhVmj UQEaumAnn8QkVLgedzDtxR HoLZd3AFBbiiIgOr01DaIl NvHgjRNwh2nmiFuzi8KpaY LgKC01KUYhcJKtPJZ9TO5p fVxwYXJ9 MICROSCOPIC DESCRIPTION y4mmuNWkXADiyEE0TnKjXC (test code = 3371) Srd3fnn4AgwTLggTXuUAgv dLYcttQafs33eSZ7yD55MG 1gAQKzAhB6HRNtdjL7Aid7 HWEaFNXrkLFrK468v5nwc4 moanQrgVW6cErvGJXqrhwa RxE1ZNfxGNVnydvgRFd2YA gzCAHmrNO8ETZmsBGoD7Rt JMMyVR6xhsi6LGE8UDlwDH WoLbQ3HYDugEXmXEZwuAie AAwam786JNP7WlWaIZDczz QhgTnavS7zVmCoHUITFVQz e5XxHGUkIZEgjtglSKTpOT Bhcn0= STATEMENT OF ADEQUACY Satisfactory (test code = 2757) Gross assessment was [facility] performed at ([facility], = 2777) Department of Pathology, [address] [place] [address], Technical component was [facility] performed at ([facility], = 2778) Department of Pathology, [address] [place] [address], Professional component [facility] was performed at ([facility], code = 2779) Department of Pathology, [address] [place] [address], [facility] Test Item Value Reference Range Interpretation Comments Case Report (test code Medical Cytology = 104) Report Case: [id number] Authorizing Provider: Kiya Crane MD Collected: 03/03/2022 09:19 PM Ordering Location: [address] Received: 03/04/2022 08:47 AM Pathologist: Chad Landry MD Specimen: Peritoneal Washings DIAGNOSIS (test code = d7ntbQZjKSMqfRO8ZbMxML 3220) Ttf3ghw0UxsSGrdVBeJBlu hKQcwjBqek52tRY9kM51FT 7kIQGpDrD3RSUxdgJ5Ptg9 IJIaNVDfkCJdD555b1bkk3 rkowPhvEH1xPslIQXuarcp RnE3FNdyIELovtreMVq9EO cpLPJqlEZ6THRhqBHnY7Vn ITTeUT2htfl6CPJ0UPanWR HbYlM0JVRqiRHcWYOfxBje WYqzz222GJX8NqCuCZUquw RelBcxjJ4oKqPsEVHEYMBB QZ5EFDQQCHuHJ9dRIdeDAA pFLGLUO1BXRbKpSA6TMTNS YCxoMbuAW7awBqozXSVdRC DhSAVJSEjWFVbPXNATK4Tb PTURNVlUEI6GVSzlHXDmIA LgFGFCMNRukZs9NQBcXQDb dGhlbGlhbCBjZWxscyBzZW VuXHBhclxmczIyXHRhYlx0 HANpsVWmQJCbBnm2DZRlRB KiM12stnkpXAO6vQ0zh0tw w1RaUClvESQ9GMRlr19rWT hwmrL5CUfcTz25MUqtWJG1 MVxwYXJ9 COMMENT (test code = k3fvaRQqWAExfGK1LfGwSV 5647) Atl2wts4FuyZUpuTIpLGqt iGKdxoDihy95uTH2bU29AD 5pRHSfLcN4EOWpiqU3Sab7 NOYwEXManYUxH539n6zeu1 tlhnYyoGS6gYigZDEktnyq LvH1LWnrLGBusritPAd3IH inLSMgaQC6URRyoROzZ5Pz ISFvJY5nnsg6IFU0WRdyHS ClPzX4JXHnwOSuXHBlkJgg ZKwts913AMO4AiEjANQhgy WxeEvpdS2sHhOtTTAYaAOw Z3MlhCGdlO6dlsGcyMosHO QgiuSvLVRooRNunRd5vIRq YLEnPEAjxpLrc2S5wHnpmk 0zSSUtvaLqbDE7iQ5htU4e cGFyIFBsZWFzZSBhbHNvIH NlZSBzdXJnaWNhbCBjYXNl DmIGMkXsBHJ3RwHnfPYgqM == CPT Code(s) (test code c3nwgCHwKUIrqPX8AkCuDC = 3357) Uwq2odz5UsjIMubIPzEMfd hFCavsTqwr54lLD1pC51HN 3wUQNsToF7MVEhqwP8Biw6 YOCoWNEryIFvY938c7xoq6 zgdqUtxSQ3gQleQPEzffbj ThE2MRozBGSvgnmaDBv6WO pyOZNnkVL3XWHmwTWzZ1Xs YVRlZP8ewxn1EOP6NDymIH MrUvB0PMOnxRGzQBPvgUwb TVldr979QQK1LnWlYLCjcn AriEukrP7vXtTrQPB7KJNj OCwgODgzMDVccGFyfQ== CLINICAL DATA (test l5lgpJSsHSMfkSA2OcQdNV code = 3355) Wqb0jkc1PhcKApsPLoUEhu xVVwprAltb97oBQ5aD93QO 5qZKHxHcJ0GEFtdyF5Slq1 IOKmNHSzaQGiF415p8uuh5 tkpiWkkYL7bFsoSQFhalrm EoN5IJlcNVLaexbzPNq5SQ vvAGIydFN5TMUytLZaJ9Ee HYVmVT7tqyg6GVG7WLndRE IlZfI5SKSthVYuSLRpsDki YRaxj219TDJ8LfKnNHKaev CohMhywL3yBzSxOOV1RnD9 Po0tUBJtiBGnCTK7kTBkOJ BNSHggSFROLCBITEQsIGh5 kE07vCaci7qsxUCjLXaigG lyvkJzHS20AFktj6Jiwnqv b6EiML2ltSYgIDzkkFOmti ljIFJVUSBwYWluLCBhbiBp bmNvbmNsdXNpdmUgcGVyaW jxkKI3sAUvgOOwkiDco66c EYUvxN3iDWKxrpApDVDzlL 8cNHCtMDAllgAhao3aNLIv t5hyXLGoydOebjKuMR84DZ BnbGiro9kxmnBrg9RmCqCw zYZ7UE9lWnfwPTC1 SPECIMEN SOURCE (test s3hgwTTrIXWuoWW1FfOmZJ code = 3377) Cjk5sze9FrmXDvmBUiXDur nVZrggVaxx82mFK4kE25HQ 9rNTYlShQ7HNKsyfH5Whg5 DCOzHQNivTZaE728g7ibl6 vwdyKinPN9mAaoBZUirmwo IaN1JFhsQQFlcmwgZPc2DB msYNIliFG8AQHqsMThN2El KABhVR2bdlw2NOE0LZusPO WhEkG5GVPxoLPkARGwnSbp HWhey154HGC8FxBzWJJiuw NbpHibwD6zKoCbODXEDKCR QS5JKSWYFEiIB3jHTahJEC Bhcn0= GROSS DESCRIPTION (test x7xhkRVbTXDzuHD2BlSkNT code = [id number]) Bat9eby3OcxWWsuBAsNIjj eHSyhlQpsr77jRR8tI69OY 1mORXnStU4QMKouuU5Ubu1 NCSmNOLlrVRhH640c2xfy8 ykilVyvXN6nClgANFatmop IvM8KZgpGZIvzpbyQPj4KR mxMJEohIQ4MGGeuGOxP7Sz FMKxDM5hozr4MTU7DIdyOJ KkCkH9TSKrpGSkGEBzqWaf WWoka188JEI0KjRcRULbys P0FIzdOLRsC8QjN5EgDYrq ZGB2DASmHRJfKGAtZVMbBF LxTVjfhoC0e3zkLUJpfATf JGB5REisjQUaJEFpVLSwYD woTlVELiBeVqQ0KJb0APY9 EtI0EJd1OIQTBgOfMlQiTn XeBOFfGBUlLZa9EPz9WEaX LkN5EAN6BVJtKbIkHFBjWH MwDCc8QEKjDPyszURiJMDd JPBzKUxwVMkkF72zzWjqvO 0iHuTaYVAAKsVVXSJssE8a LCAqLNlem3rykxdkEeuoBK JcZnMyMCBSZWNlaXZlZCAy UuCkVC2mZURfjU9fdXAyem ZebP82XJjtj8p5hYM6rC17 VElzvMT2rN0nyGKqBvd4hM M5AHPsMCPayxOlOXDxL1j9 s8EdxQ6mOIJdLNIdUIxlTY Ryz3JzZTQzMSqmx5ijj5Uf i05sDuPnUTYpSGMlTWKxYR zhQWOkr0DmZTotkrEkhTak ZOVbusRxe0GzKQktlmMufV NxMPw5FKTalhDnQn38JdSc CfJvvUGnu9nksKjdh7AsbT JaZD56HAJkuIDsMKU2GV1k fVxwYXJ9 MICROSCOPIC DESCRIPTION g3thyLTeBXKnvTH2TlZhYS (test code = 3371) Eva2nvn7GkqIPgwXKkYPun yALgyzEmwt10tYC9fC20ZW 2rFUToFjW9VNPqehC7Mcx9 HBSeDWEdgWUuQ360e2xtb2 fchjWkfPJ2dGacFKRhlori GxS6BJxpCQSuxoacSOe5NP toQAErlWP1GRMwoXPwC7Co MYIxMN4paxq4BXH0EBdwAA YdSzW2DHZwjAXbCIHdbMlw FIxpw113QQC8JmXpBMLmkw FicQaesB4vEdHtHHYRTDDc v4FdDGUmHOBaytfrKYWiPB Bhcn0= STATEMENT OF ADEQUACY Satisfactory (test code = 2757) Gross assessment was [facility] performed at ([facility], = 2777) Department of Pathology, [address] [place] [address], Technical component was [facility] performed at ([facility], = 2778) Department of Pathology, [address] [place] [address], Professional component [facility] was performed at ([facility], code = 2779) Department of Pathology, [address] [place] [address], [facility] 09[facility]03:53Medical Cytology Report Case: [id number] Authorizing Provider: Kiya Crane MD Collected: 09:19 PM Ordering Location: [address] Received: 03/04/2022 08:47 AM Pathologist: Chad Landry MD Specimen: Peritoneal Washings PERITONEAL WASHINGS (CYTOSPINS AND CELL BLOCK): - NEGATIVEFOR MALIGNANCY Reactive mesothelial cells seen Signing Pathologist Direct Phone Line: [phone] ctronically signed by Chad Landry MD on 03/10/2022 at 9:03 AMPreliminary result electronically signed by Chad Landry MD on 03/06/2022 at 6:35 PMThe cell block slide is paucicellular and is mostly non-contributory.Please also see surgical case: [id number], [id number] y.o. 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 Peritoneal Washings.Received 2250 ml colorless cloudy with tiny gelatinous fluid; prepared 4 cytospins and cell block(A2)(collodion bag) - the cell block was fixed in formalin at 14:48 on 2Performed.[facility], Department of Pathology, [address] [place], [place] [id number], [facility], [facility] of [facility]ology, [address] [place] [address], [facility], Department of Pathology, [address] [place] [address], Bvztrt Exam 2022-03-09 16:41:12 Test Item Value Reference Range Interpretation Comments Case Report (test Surgical Pathology code = 104) Report Case: [id number] Authorizing Provider: Kiya Crane MD Collected: 03/03/2022 08:33 PM Ordering Location: [facility] Received: 03/04/2022 10:11 AM PERIOPERATIVE SERVICES Pathologist: Nina Kumar MD Specimens: A) - Nodule, RIGHT UPPER QUADRANT NODULE FOR PERMANENT B) - Peritoneum, LEFT UPPER QUADRANT PERITONEUM BIOPSY FOR PERMANENT C) - Pleural, Right, Right ParietalPleura Tissue D) - Diaphragm, Diaphragmatic rind ADDENDUM (test code = w8uinMVoBCUukKN4JoNoHLCl 3381) l3dip4HvzUAtjPWpXJqdaBBs rxFkur16gZN2sX60LS1jRVNd PkP0YEEiioC6Ucw0ATPmXXJx lMRyE049a6pca1atczMnqZR9 cHagQDLzpajsCxY4KSeuDLHb bjxnZAv1BGqdAHKwtAB0EJSx ySYqB4SuZGLqQF5yyhi9OKG9 BWonFZWoOzA3HNJabCRfABXa sWxrTXjvi200EIV7EaLcXQSi flYwtLmhfF0hZgEwHFZYYYXE O09bJp4KLMQJRYMWSYTOYwVE JmXKUNPPKkCxX1UPR9xMSWIM VEFJTlNccGFyXHBhcmRccGFy TBCrHPNzXTfit8MsfR9kOv7b IEdNUyBhbmQgQUZCIGFyZSBu FRlhpOn5SHEmb9JlIaVmV5Fu HNCfHKIeC3udBMEnp3OwsZuz cq4yo9FoDR3za56uHXAxj4It O7AizbTgrU8vL33kefVnRUOe j11vu3b5yGFyoXr2dXTjxgYh ioEzz2Jca3svZ5faqJGfhxHk o85xLC7nGPXfUHZzck9= DIAGNOSIS (test code n2sqhONqKMHmn4qmIAWfiWLn = 3220) ZzEwMzNcZnRuYmpcdWMxIHtc cnRmMVxlcGljOTYwMlxhbnNp XGAcuMXtI9KyilbaZEzwKY0e HK0voVrqsUPffQHhAMEvSdUk l2lgf996yVGmo0esNPVPxvcr kJa4iQwkR45li4Z2ZkblM13j zBFeMFK0ZHYkXZBvdIPkTVHf YAX6QIImxFFvK5ufIXPvCK3a bcwaCAjdNKrfVMIztBS6BTXr kYMtA4LfZKZvNIquQLXfsrw3 EqXxWg2arKLzrBlaJEjaSODw GSMlGUsmFSSuTrIcYN6uLOXH SVRPTkVVTSwgUklHSFQgVVBQ NEBuLQZCQZYWWgVxJWWRP6BB WTpccGFyICAtICBORUdBVElW SNDQW4EyWRDTKDvTAQ2HIVpj JKAwiKNrIUlaCLNcFl1fUGSL SVRPTkVVTSwgTEVGVCBVUFBF UiBRVUFEUkFOVCwgQklPUFNZ EcavOGEgLI3jFN9YS5ZBNJOI WEAGYdIAFQkMR75SEqOEBFUf clxwYXJkXHBhciBDLiBSSUdI VCBQQVJJRVRBTCBQTEVVUkEs OHIFAfCVAQjsKFwGCPHBJ0YI BWp6MBWnakDlVTIrBlRVNx8Q YwTWAZ6BFDWFDhmmOUmCGKHK SSlaOo9qZrfBTedMBEOIR2WM RSBTRUVOXHBhciAgLSAgTkVH UONCGsIfJs6GCA3OYKtYNsEX O0bcgJIxWIRgagTqqDCkSCAe IERJQVBIUkFHTUFUSUMgUklO CIbbRkVCVZIAHI2SEllmHCGy WI7fOEQPZPMLNEAIFMPLVosF QktuEH6MNXUMVOYLPYXBQ6qx IXUvJU7aVBTCYW9DEINJGGBO TFlJTkcgTFVORyBQQVJFTkNI MJ8COHjQCWxeCcFLJ5FHDjVu D7hAOwtGU8miVRPyUN7rGW7U G1ZQIARMGSLGBjCKJMpBZ00I FtYOXONfex19MXF5CyEib7K1 RCO7GJUuDZJtz0lbZYOnrBPb ZzEwMzNcZnRuYmpcdWMxXGRl LuMzj6hww576rWTlr9eqIQAr TuM1fFTtMLLnhVRlA965NGLw HPxiv7esi3HwXIYydRPrs4V5 GCGXnubzjYn8yQbaC61jo5N9 XycyO5ldUBUcTNBuN0KdUQ7p XSIaYyx1DYD9KUC4LGOnSDRp H4OuVH5rWPVjwREiJDe8y6jk gAsbCCVgUWS2i0fjKMliusYf UT0col9qyEh1s3fvubOrDGJd YFHtcIQMXAMlN1AziVhrFg4g pGo8iMbiIlxySYX2Kyx2BF5v pp25gfe6xLqfLWYqildqEjC8 ZVupJLZevzxmTQu3ARzaKMZe qSV6EQDdnDEpC9BhHCNtZJ9q suz4EGO1DLtpIABmRlD6NJYs wTAoTJAqkAmqIIlfr843BAA4 SsNtKH6wH3Ens6F1wY8qlYUu IEXjiSMkSeFwTVEkqq8poSZt JIldx6FbKZI7goL9iKNuoLRi IRXcLxB5XWsxCH2maj13LBTk UZZ0br2mtRSezVdcdyGpsBZf YBfqS5SnRBPaf507ADZxQ6Gy BZMqi8A8nqBhFqWrZTLxeGX5 kbF7HERmPI5unzntz2ckVNhv ESkbUISvuhA5zxT2DYUldOUi T6RflA6fJFImZH8kdwyoq8ib CZG1QLqvENRjLVX7PtJwEWEn k5Siwng5JhTdv8CkyVJrIBbf N38ye049OXNnlfRgT8gikYBg vaojzEKaogcaKGmswxS2ZPGh HEpxjnatCBAdZYmkL3txNkKg UAQnzUwbXLuet5GdEUHhVLBs HwZatFBoDLRsKuq5AFPnnNNs RPBtBqIuZ0nhicsgRvOAORTx h8aiJ1ewcJBTpOSoR9DwAWxx rxNkVKvyOCgxEkCoWAk8WI21 HsYtRYJbzz88 COMMENT (test code = q8xczRIbEZIzhWH3NhFpVTCf 3359) z5kth2PhiODxfOIhRPezbDVh aaXrjo35sBQ9bK37XG6tZKGu ZyB6CLKfkxF6Tsc1GZOpBNKt iVEoL741l6cht2rwspIsyFB1 bQhfUFLrfumlCeT1ZEwvJFIi yigpUPa0MZhxVGYyzBS0SWZf iEToD9RdIRYoJY3ryay0DDZ1 POwjTHPpPoM8BKVpkOBcWMMv fMotMTizt110HMC8FqWmRDBx xgDstZyvmB1kFlUnZTDBYaPo C2TyK7hkiEEqsFRiknErDFSb YXMtxuWsmrdrTB9bQWbuzFlu OuEvioIbk2G1PLBwsI8aNL6u PKZuJO2skM5gRETirvqsVAYe XHBhcn0= CPT Code(s) (test c4cpmKJeNKTfxZZ8TjEfACDw code = 3357) l3dmc5QdiJLmeZCoFPdrvDHu kjXags77pSA0fX74LB7oGZXe TiO0YVCqpqC1Kbn9TLXsCDFg hLSzM229k0gci7ciqhCktCW9 vDdpBNVinvfjPfX7GTheDSCs irdlOUb7WDxgRAKeeQA0AZPl aEAxI0YmHBZfSO7have0RFI1 CFspYIRdNaA3UEYdmOMjPHGf qHijOVaug192JBM0CdGqEGYd seYdyZrxwL2bQhPjINW4YCUb TZh4GZBghlB0ARAuMamyXGNe cn0= CLINICAL HISTORY o1kreKEyNVUnjWM0HgEnWDTp (test code = 3356) z6fvk0BvjRHfxZVfCWqcqPNt uxSyod55dXT0uY41JO2zQEDg ItF9JIIuvgA2Lie4KUJgSPEv lNZzD733k3tbs1pltqMkpEN8 kSgyYQVivpqnKpD3RUmiWJPr ehmdDVt2WFcoJJNtlDD2DKPu kAFpG8SjREVxAS9dtpu1GBW1 GMvuUMGiNiL8FJZceSUjSZHb wRdvRRbjh497SJT5ZrQoBYDh emJjjOuptP4rZgRaRDLXbIM9 KR0tWWRxzs8= GROSS DESCRIPTION n4azjTLkVNIhjIMOCILkW4zy (test code = ufYeIIPskWYtX3QkmhqcKAsf [id number]) WS9eDC3gnBnekYUwwLKzQL7A XGRlZmYxXHBhcGVydzEyMjQw BGLdlXDsvRT9FEOrXH7lncbm LAqsQQkhGLArcmY5YDQmsEBp T9FbOZEvFM3txfhwRDG4WZsv bI7klpSCGaohUu3rvIExnDkw ZjFcZmNoYXJzZXQwXGZuaWwg OKXbNSc7kE3XQmveXRC5JREM EvaaPMFrSC8Sd4faUHXoiRJs IAZ3KXxvcDCeYNOsSQVeCEf2 ETLfGUearYXzYH0veBobMfyq qMbuk2VxbHEnMDyvKWSaPHSx NSalQMHrYR6JXiTtOGK7MRr7 CFheLJp0OGv6DM6UQcYpYLMx VAAaOKL1ZLNwKVp3NRjyIJ5R DQT6GaF6VMJ9GEN0BYY4DRPe XHQgMiBcXGYgQXJpYWwgXFxm iHAiCI9jbCjcqQTrrbRNBwWQ z5M0gSVtLGVlhqHYRggkuDfc TmVzdERvYzEgDQpcbHRycGFy XGxpbjBccmluMCANClxsdHJj dFvqxrSwHRLxS2PicgQpREIv YZEjTXasQqNbLXJkm0d8fLK0 xFEreNA1fUHpeZctFsWtNO6c nGWsLZ2lIKjzPZityjHia1Lt AS58nOPqtwWoduRyTl4rXUBa ZSAjMSIgaXMgYSAxLjEgeCAw MnqliJArFpPaP13nmMWafE44 GWQwhhyhAOXclM1pQUN4wGJm uCViJpCeQ68npkHce3GbMxNo LNRgXxixB4dee4GpusetAkPu GU5kwpMqUDQ0jAG3SDebSZKh bHZpF8UrAM5kNL2wLTtiv6Zd RMeas9soelLuOXZrCEklOB40 zLKbERTvQSHJrMXfk9TuK6ir NN3xbNWaXF95zFUkoSwnv3Be sAt5qKYxDFkjPNMuLw9XJBRn TTolUIAzhTZSIZI2KF4vFYfw vEEsvxmsGIVlV1OjS3DocmUi eFApHGDpthMtn0etHJH4QWTq aBAnwGMzOlIaUqbuAAS5KIm4 WSltFUGbR9YkG0QsYByfPOM0 MTAwMiBcXGRiICBPVlIgIiA1 JFk2AZm3VpJ3CTq6JGVCMkFh RlByTtZwKnPvZYUuFGd6QBd1 TZtBMkM5QWM5BYJbWpQxEEAt DSGbDFh9NCMeSPmnRTFkmJOm FNmqHlfyISmpQ63vWaXdBvhy nYKzpfDZBdBPFELtrP9pMIYg OcjgWJMnBVlmWYHyL06sa3ZR m0TfHT1KJJn1gkVspdvujL7o EMItwcVsZBgluIYqY3ykHlRr MCBSZWNlaXZlZCBmcmVzaCBs YWJlbGVkIHdpdGggdGhlIHBh nRrykjSyC9M4tfQbAR0hRSMc WEYvZ9UcDWTfN65oYIRbjJ3r IVGmPP1zSYFyAOY5HMMdfCFa RCO8LSPpIU00QWGbmsl5n22m bW5rZEncVSCiMR94CHshYH09 UDuoUK0xLJEyMFbmuiVymMmd lxG7SJnij5fha6cyjLIcPzmz vi5pTLwrz7VbFCVdx4B2LEYr gaNieICbdRO3dTAkk9BeH2ke HP9owQHooFGvXGAct0CvaIMd IGFuZCBlbnRpcmVseSBzdWJt sHU1DAYaiQ1vIkMlFVjliEzu jN7xSUJoH25mi4AIj5QfKWOr OFtnc4duyCfib9ZbcOLhLSfg CSOvpTEjWSfmwT6iRvJli3pg uAc7PNxoqiZ1JYFnih9KQdmn KvurxRdlf3TucEDwNYmjKCTb LJHyMWjaQCXnEZ9HJdEqIPG8 NZj6KUdgJLb8QCe4FL8SBlXu YUVxEYLeRQWkDGObVBq8BDse ZT2ZHGR7BwC4HOIqUVQ5GKX2 MSBcXHQgMiBcXGYgQXJpYWwg NZyavZJoNO1uxLyvvxW5CSDi YWluIEMuIFBsZXVyYWwsIFJp B1q4VuerPJQxGFfbGFTaR26s c1FQd4QmVO9FBDd5qqLbalhu nF8gHNXsooCjEFvqqSDeV4jr ZnMyMCBSZWNlaXZlZCBmcmVz aCBsYWJlbGVkIHdpdGggdGhl BJIyjKmijiIeP4L3gaZrIJ0k GSGlRAKhN8XjCCIyP48fBGFg nY2dBZLrAG1fMJZclAX5oyMb YRRbJ0d4OtYxcdGuRVLfSKW0 IUWgNuN7RORpGHHkbPFzZ8re FOicgLVuf3DcFjSoyhVqG6Hl QBGacVgaY9AvQA9zMMynuDhu fc4qobH9SGVpRzFxyXltz9Mb LiAgVGhlIHNwZWNpbWVuIGlz BJJahqdtbFm3VVNlW8Aru76m OYSafrBqvv6cK1Ask6AxhDEe kO9nbpRaqxNufOJyepBhPtab NN7dRHSueTAmb4BvrWW9iIPt OGOjG0Tqq02bFOJeVNIkeLKb fFA0PEXmlE7kWsVyZbMjYDal nJljmX9vPGMhX75vw3DCx7Ni UVAhLMiwv5upeXgtz5AcyRYp BHxyPWNnkDBiANrdqZ6gHrLh t0cacVh4DTapfeA4YXGanj8Q BpcnGrpjnQviu7CmlSCwYTmp RDFdDUDrYErrFBKaLL5RTsFy SUN9GNr9TAvnNQk4RId2JO4F FwDlXOBnUBDoWGt6ERDpUWv9 QZgbOZ4NSGP1PdQ0OGRfHdT8 GCX2GGQzSKQbPxOzRACjLRMx MAjxRKwbkEKcIJ8xyJyjuxX3 XHBsYWluIEQuIERpYXBocmFn zV0moNRhJA4JBIVbyUGEUBY0 GP1aNGTELaqgaZEvNIVbkPcg QJvzwI2vGB5DEVd0lcIgHDZi YhRzNoIfHTr0QAXhLsEkr5ej lDOxOFbcJIJ1uOZbOUZiKDSc DRLwSN85DBlSEBPqxdWkZTdq bWVkaWNhbCByZWNvcmQgbnVt YmVyIGFuZCAiZGlhcGhyYWdt UcJvliTeGRHiHDF6FHEeWdY0 RYOaEJRitAFgQ4arJDbauEZc u0JoYfNcdoBaA6XvEEVqjoSt TSFhuxfrVlrhpz03rkC9nJGe fEIyClRgR71efnTpVMijqCcl AFE9AHFdGJPjgWJpZ9iaVxAs VGhlcmUgaXMgYSBzbWFsbCBh vF12ruNoj2UvPGi1HXG2PSNj iaU2mJYax1PhRiWvGH3aGWMf XBHvbRVxbI5abfIgtcByGDBg ZJpxvXCjIRP7kQ3bYWGoFJ3c IO0sQSbwx6BgFJvpo8cgvbMp BWFtOYxqQD12eSRaKKAsBAJJ HLTxWIJqqsEccIw2SMTaKHU9 eU7bkcUcxdKgm7UhzTe1lFJl EUpgLDCySKEuOgdlgR2wKEef sJ1jXDBoLOylSJJmW0NmlK3e DD0FDgsqDFKeAFEWG2GfI91Z ClxwbGFpblxlcGljTmVzdERv ByAilPdeeJ73ISLpeUPbHXR3 SM1aBUQeaywzGOIvZTSeZVN0 LWtsoL60sBTrGOFfCBOjwSCn lS1IEBSaODN9UUedhG26rHWw VK4HOQXdLZG5QRQjeAVaICS6 VK4grV5UsG== MICROSCOPIC e0yemFGrCEWlgRL5VmRuZQKg DESCRIPTION (test z1ehq2MujRHtyOBiXYvsiDOv code = 3371) dlNbjn46aPD7yU00ZE1uTALl UhD5XNLmvwS3Pki7PNWaRPLy rHPgV566t1usq4kxkpLgeTN6 oBwzLMKvuivlYoY2CIxoEALj icerYRn2QAkoJIXjtYI8FMMh mJBmF5KiGZVkHG6czek3VBK8 JZdlEEBiZeF5WVXebIUaPTRj bAkxCXsxb264IGK3RgTlJUQp rnJvzLediT8bXaPhCHGZAYJr p8KeLNPbUHNvenwgZUGyNKAv cn0= SPECIAL STUDIES (test c8jlxPCpBXJme5zoINPpbZCr code = 9486) ZzEwMzNcZnRuYmpcdWMxIHtc fiPoLVznd3FzY1JzRtDcZUfa bnNpXGRlZmxhbmcxMDMzXGZ0 orZhDBDsCPhvHUXnWKwxUf6n lXPchQahBoChKFFdv1tdfjHP epeufSf9x7ipSMQvStA8aWPc LLwxS7zieuXhuKWxK5SkkBKi hJk7m8caTfBpSzL3cMKkBKyl J5xiloBpoUYsLKMmDLm8dY70 BJPmaQ5laGWcQOmjylUiRmR2 FDpiNLOlQvR2KZQhvTBcFKAe H6ddAQUmRRcfEYXdXCmogWIa AMC4pXynw2X2sGStaFMfhWyc JlOwXmJcTeQNu0FrIKg7sMwb Z8YjOTLqQjK2nPXyUBYgUBlc PXZwTAGghbA9hGysaiIet90r eHQyXGYwXGZzMjBcbGkwXHJp JBWRl3CkbOxpVII3iDd5lAkk GlmqLRK2Oyi6OA9xua17lzp9 vTvcIVCibaeoQbE2EEysMHLj djksXKe8TQpmXLEawYS7UYDz yLJoR7ZoQTTyDU0gfru5RWP9 DMtaJLXdDkT9OMQbvWWdTSKn uGikQTkfd752JYR2DlXeIE9j H7Mvr6J0aS4mvRAsYHYhhGJk RvBvEJCypf0dwCYyMDahq5Ee PWP8jdE1kTUaoHRpTYNyUI43 Mflff3DsHqkee5KqF64zyME4 NEuah6ezNW3dDbD6cyNiANlt t9kpiE5kUqX8FTtuCH3yDZ7y YLVmjD1pwrdiCFVaSmWahkxw JKKniYkgosRxIu0hgOxuCVH3 GGguK4vvbZ1tXlT8OLapE3aj uU5zTAd2XPoksUQ2TESehJ3g AZ0nfleva6ihAOtrJQqqPYTc afG0myP0DSMfhBFkU5MtiG9w RYPyHM0lmiapl1jkSJG4CUgs JAThMZA5IrUrTYTmz7Ixoey8 UgYfk1CslKSyDUkhV18zn655 IMBnrxMfY7fqsSJkdwhkeMVv bfxmIZifegR5CBXhIUNkJMtk XGYxXGZzMjJcbGFuZzEwMzNc aGljaFxmMVxkYmNoXGYxXGxv L6eqSyIaW3NqHHOsLsMdJTmr OTeimXOqwVOtjUO8yZ4pOP9z SMTvaEGxO9HqKYUoduTiqKZd VZE3cSQxmKSqSO9qKOaftFKk l8pay9OlX5zpjPkxaBE0RF4f JNWdKJThLJrlh4JwkX6eLile bGFpblxmMVxmczIyXGxhbmcx NHAnWVbtX2phFbXlHDMviFid MJnjv2FlUEGwEOIcSfbuedKj DNw7ewVlUIBajakjEAAabNhb xA0bAgVjSbQaPjdbHN3dGQMu V6zgpMCoZADmMEDrV5qdQwJd zS4pjFbsFQleMbReYyReGeCQ e660me5xKGJibAEeekOOeUPe cK4wCPxsGNbhOEnsqUGcPAay u9ryYIZpv3s1lAOwVBJkitXh m1chSPwymfNfQKCdoRSdoDFx XRAqp16wDEarnLsqvRtvMWNd h4SxrXbme6EsZfCmSKjvd7Lr J51ceCZchKDshHaxNYAmzgSm VRIer53xz6opTAMuAtF7nGTf hDY2mZCweSEud1OjfTymGZBe l4bdHMVcts4arogjiQYqd4Zm kY6hcbdlVFcvjDSqpmUoNDIz e9q1gJJkXCNxAMRgHPfauRn3 RDOsy843cs1bkoR1vQLgIKC1 YWlsYWJsZSBhcmUgZXZhbHVh dGVkXHBsYWluXGYxXGZzMjJc bGFuZzEwMzNcaGljaFxmMVxk EqFoJKNeEOuhK5oyMnGrB1Oh AERtTsSwfNUbY7wcdMOzLBBc YWluXGYxXGZzMjJcbGFuZzEw MzNcaGljaFxmMVxkYmNoXGYx RRgqK9hrMqBzX1JhKWGnZsYf IFxwbGFpblxmMVxmczIyXGxh mithAKEwCKjxH6hrJzKpASDw qJkjPWvtr7DxQSNoZKZwGyfh ogJlTGc6quRcJYFhqrtyeMTr blxmMVxmczIyXGxhbmcxMDMz OOerC8gkJsHiLOKkeCmmNUwp j3UnFNYeJCEwSmjohqFjRFqm vYOrm1pfo7FvX1zojUgpbGC0 TLVhO4jqmTJakHZ2QMZ7iX0b YGbwtcIoCBGzk9HoUYCvUJMb DhQ0jX2rVPJ3PkHLtBlmSAPu YWluXGYxXGZzMjJcbGFuZzEw MzNcaGljaFxmMVxkYmNoXGYx GZewU9zdHeNpY1XmVSWpYgHv qHfuTGfpAYd7RfokbFNqxdkx MVxmczIyXGxhbmcxMDMzXGhp K9mdSdRoJNXnhQwjUEcbv9Gk XGYxXGNmMlxmczIyIHMgTWVk cXEptDJMOF92JELqEZInqVrp qR6rwXHSPCJlzoS8w0N4LGrz TUFaBMf6OPwxtuVfKGVejP1r KASdXI8kNXz3rsXeGJRiw2Xb EK5pUWNvdNJtAHM0DCCer7Ve F7Cyg5YqNQDbUPQpub8xdqKo XdTLdNUrPLJwvp82IAGnMF5d A6veEYYnDNWwszGnpTZht7Ed HWGnvGH3hGTyYA2YHsJAw19g IGFuZCBEcnVnIEFkbWluaXN0 mdE0cQ2bOeXMpHFwYtUCKJlp quTzASDsgp9yxvMoGLRwKJDi f2OoaFWfsBKptyYlC5Meq3As JTXsxn06RYpwbODyhs38ID8n M3Bjl0YiaG5hTPcrMTQti7Ix cHIkyBXsJVAib3TsY3fjtbgt FRavoYSnaX2oKAMrBOa3LMMd u7DjCADaq2FzBiHmcbIwKXAs BTRcBEQdwS29UYD5eOkqaKjo oySgUV5yPJMrmeZtIASqNFPs wD5aDGiviqMySYMoxwT7z6T1 TAlvRNDjjyJxNnekRUV4hsBj wyI3jWLbH1zxtjtuOWgpCAEo o7ZtqF6oqKHYpRVdj7EuyZXw xEUFcJXsTI2jwoNtGO7aFNU7 ODggKENMSUEtODgpIGFzIHF1 VZvaXyxfVRW8cdHiQJZim3Ew HQjhF8coR93zqUjvqYs9oFHp fCgfcIHmfBIhPZStliT3y0U9 LUPxg2NwrwzpZEFwPJvoTLKu XGZzMjJcbGFuZzEwMzNcaGlj uSorJgnnJfWrIUNeTPamR9wi LhEyGiKoAxvdPES1pX== [facility] [id number] 16:41:12 Test Item Value Reference Range Interpretation Comments Case Report (test Surgical Pathology code = 104) Report Case: [id number] Authorizing Provider: Kiya Crane MD Collected: 03/03/2022 08:33 PM Ordering Location: [facility] Received: 03/04/2022 10:11 AM [facility]IOPERATIVE SERVICES Pathologist: Nina Kumar MD Specimens: A) - Nodule, RIGHT UPPER QUADRANT NODULE FOR PERMANENT B) - Peritoneum, LEFT UPPER QUADRANT PERITONEUM BIOPSY FOR PERMANENT C) - Pleural, Right, Right ParietalPleura Tissue D) - Diaphragm, Diaphragmatic rind ADDENDUM (test code = [id number] 3381) d2gvx9TekEVeiBCbYLnisOGw xwGnvh96wOP0cN93QS1kDOHb AvE5HFTsexM7Ihb3XXNfNCYb jCVqY782p1ftg8oapcQwdZC1 rKojBPIfznwhEfM4DNgxFHRj adbaPMz5DTzfWHFimYF9OVOn pGEhI1QgPGGlNH0qjdt0QBV7 NLhiTUYlHgA6GCVqnQQeWPZz bGdnZChkf581ZZI5TrTaJWTx osQrhAkvsE3xGjHnRNGTWPRP R50nVv8HNNDMMPLHCTBTJcMD TrIQDTYGJtJuC6LZJ5vGKVZW VEFJTlNccGFyXHBhcmRccGFy NSHpERJvJRdnu0RwdP4oCi3n IEdNUyBhbmQgQUZCIGFyZSBu ZAdnuSv5GJSvv0GwWbHgK4Vk SSVtXEOeS2hyZAYhx7PpmTjz wi3vx2PeEP6gg22iPYHec9Kn D0GezfUspC0hA97hzaGhJWJs i83xm3c6sRMtuYb5hBFnzbNk sdFoz7Tjq8puB6mzzSViqbVt b99vON4mPWFdTSTwru1= DIAGNOSIS (test code x4wzsZGdTRIqo3kuFPBbbCEr = 3220) ZzEwMzNcZnRuYmpcdWMxIHtc cnRmMVxlcGljOTYwMlxhbnNp EGWlsXPmT3SxjrmdLKltQQ3r AO0haDmpxVPtbIUuZGIdNmPc v8tyr349aQSwq7uiXWHUccqs iQv6jVfeH11mh0R3UowkE66a kEOaHOG2XPWgYNYbhOZxWQLk SWS4VIYivFPzU5xdZDPjRU9k kbczDCsmUCqdHTNjgEV0TTPg vMBxY8UyADMfNXlnSCZjtiq6 AbQkBe8gnZZvuPewNYuvZDAp TWHvIUhuTZJhQhQfUD6oFTNB SVRPTkVVTSwgUklHSFQgVVBQ OFQvQXQLLBDVBoZpYHPCQ1AB WTpccGFyICAtICBORUdBVElW HDQSJ4SwVFYMXGrRHU6XTLzq ERLcyFBqUBigPLBdKa2xVNHW SVRPTkVVTSwgTEVGVCBVUFBF UiBRVUFEUkFOVCwgQklPUFNZ TfqzRGMcKQ5aKT8ZU0LFVJCU AAUCTiZLPUlLP83JJzDZRCAp clxwYXJkXHBhciBDLiBSSUdI VCBQQVJJRVRBTCBQTEVVUkEs APGZUoSMUPfiPSqTIRSDN9GV EYt0FBLvcxLpNSWhOgRIKo7Z YbHYVV7WNTKCAhaxZYsXIXQW QIgyUu2aIybBVrxOSXAIW4PL RSBTRUVOXHBhciAgLSAgTkVH CGJKVvUxAx2HUT7BMLvNGiKD A0agvEBvHKOwwjRhpQOuYIJh IERJQVBIUkFHTUFUSUMgUklO KGogNxGPEMZASH0PHrhpFLSn AZ3mJDONJJPZTBVRZQGWQmzX MxqiTI2QXRGSZUJMLETVB2kz WDAoWM1tTGRKEC9IYATKFKBS TFlJTkcgTFVORyBQQVJFTkNI DL9JIEtDCNnvAtGDM2VAPhJz M9wBSsyMU7hxZLOfJX1zAD0P E0DGEZKRVKLAGtTIIJtBL48F BzMYZTJjls72RBH1StMoe5G0 DDA0FIQwYHMnu8piOYQrkYOh ZzEwMzNcZnRuYmpcdWMxXGRl WiUgq0jeg006fBSlt3hhKLVd PdI7gFFvRUPwvHWeF149VKNd VZknc7rdv5XxGMCveCUrn5N6 GLWXlcnwpHs6dAbyN91pm4G1 OzfbW7bmYFGvAQXsD3XjKP2a GSYsXkj4JGB5WXN6CWDdLTKo E9WpEX0pIBMzlCAuFPz3y0or oRdnQUFqSLW9t9nwCOhlbgCw GH4lvn4agRe4d5rjofQrEIEe FXIyxAUWTZDhJ6LopQzbIa7l mQj3zPqyDhzlHTJ5Qzt1EV9g et97ulx3kEmnRXNbgzdqSsM0 SXebUHLxiaucKNg0BUymAXCj vPH3MOMqyTMwC5AiTPIfBN9m xdz7TAZ0UQkgBPTkDhI4KNFz yZVeUWLpgIpeZXmom838MDA7 SvHiVX6uD1Dfb1N6xB0tcPSi EJJbuHRjDqKtWRUplh7rkFQm KAybh0XjMIY9isA6cHFbvTRf GLGiZiM1BLvaDT0sjw73PCEo REB6ne3baMToyLxmiwHwnRDx JMggC1IsAFRdt944WRXkG1Dp AYOdk1Q9upOlCdYlPRXuyDB4 dmD4AKDcBV7nwoycv2qmIAle PMztNKNarzP1qdS1RGJtrXQt B7BhnD6jDZCqLP9yyqdvf8kv FTP2HFizLDPmCNN5SxAkNTRr c2Gbwtx4EwCgk9KvfVKnAQik S80fg311SMSzpfNjS6amxYAv wohvlOOutolrHPfdvlR1NEFm MZhnznelBVPtPMaqK4clXpYv XQZaiLwbCWtoh6KkUQGzIDXd AtWxbRNrPMFjSzb1VKOavMMf NGCrSgNgF3lnfebaVjJDASWu f6dvJ6zmkUEKeHOdB9HxYEbt ukAtTAyvCHvvJlPdIFi8OI03 LrZbVFDrzn03 COMMENT (test code = x6etpBPtKGKxhHW0UhWrHESm 3355) b7rsg2BqfHZlwWCsBNnlrTCm ukNmly01zHP7vY39SI0uHBBa LdL7DFFnrdM7Yxb8BCQgSBXx wLQqK922w1puh1niynCziFB5 kGviGJRsnumqDuQ8LTpxWKXe ddmbBHa1ABboGMFxrGS0YBDu iRQkL2PlIGIxEI1bdta3SIP3 SZhgJFPrLiX8PGXohCOiBPKj wLblVSuev890YUA7CcYyUTHg leOwvBbmnA3uSvKaPIULVjKw T4QtS1qkgRYlfDTpyjWbZSMe BJDpdgLtbchpXJ4lTWojdKeb MkPlzgBox6G3FEQkwK0yYO6e YZUvSF5vlG9zDBNlfvpwEDVt XHBhcn0= CPT Code(s) (test w8adaBPnTGNthFB9EwFoVHXb code = 3357) i7dxn6DahKYzfFBpXBjzeBDj spNvcr66lFT5lU12OE0jKVJa ZzI9CHJaxkA4Gsk1FKScKPLg zGLcO467i9cop0dsdrTjeOU3 hVteNDMlbrztJrW1EKpgDVWm vpyuUBu4RIkgZWTkgEQ0HUDq tJGxR0ZmRBWbQS0kavc3SZD6 SAouAPRiMzS7ZOBnvKNnDBNj hIegMMdtj118TZF3BhCvJTWm ygZumDuquH7mBuTgSHP7PQMj TLi0LLNsfzK5KXPjZcwbQVMf cn0= CLINICAL HISTORY e1dkgAGvNGAwdRA0KjXrMZEh (test code = 3356) j3zps4TebXOcuGGbWGharVZo xzVzur14kUJ6mL53KA2cLKDz CaK9MMFxqaM1Ebw7CVRaHTFa oFAmM878w0ffq6ksppTumMM7 lYjaPTUhenttBpG0MZtyZULs vwptOSi3NNawIDQhaVV4TDVt nRDzV3AzPJUlFH8flbm3LWR9 LPakFNNsOuK4EFVrnVMsKSMd cQjpGDaox656EHZ6YtJzDMCk ezLzfVfwaT2iTjBsIIPVyYV0 TC3eMFAphz3= GROSS DESCRIPTION n1nriSAkNLVouUKFFQJyN9rv (test code = otNwJGUxxYCiX5AwrjquSJyq 4820264721) SZ5bUT2tpDhqpKEtrCGrBH6Z XGRlZmYxXHBhcGVydzEyMjQw ZJQelQOxpAV9EGYxLZ8rnzzy WQiwKLzvOBWmmlX4XCMhsZIq W0VsKLRcYJ9pfrtvPKK1STzl uH6mmrLPIfjoRp9qyNKktWfs ZjFcZmNoYXJzZXQwXGZuaWwg OSAgUDp8wY9MWvwgZLC0EYPO ZjxfKSSnEL8Of9dpPEOnbDEc FLW2TOdpbAHwGLOrUONlKFz2 PKFcHNxilWVkET4hfCivMocc lSazh6DfhXVaLAznDUMuRCRs GHgfEIYuNH2TBzSxTMU0GJe7 WUgcAYz8GDw1BH5CQdKrAFPj VYKtVMK3QMEaSDm0EOpbTP6G ZNS0RrP9WRS8NDD4SGH8THVg XHQgMiBcXGYgQXJpYWwgXFxm fOKjAM3pkOlfjLXzncVMBuJL f6H8aXJePPTwjmHIZqwriInp TmVzdERvYzEgDQpcbHRycGFy XGxpbjBccmluMCANClxsdHJj wVvdxqWkZLUhD5AzkuCtRWDu WQVjPOzzLaYqPSWwx1z7dSG4 mPGhdSL5xOXnpLccJvTzBC0g rERrMN4qDExwJDqgkyDeu5Ks CD30aTJwnmLpkzXvWh2ePTXx ZSAjMSIgaXMgYSAxLjEgeCAw QcrvbWFwSiWzH51ddNTmpP33 WTLdtaemLYSfzO3fFLW3aQHs bKMyWpHhH15hrlUpy4YlUtOw PMWtFyuhD5kmr4TonohfDuUe OV7hgrMhWFJ8vYC1HDecCEVe sGFlN5AoIB6nAH5jHGcpu0Gf MJynm0dmhsCgJEPgHVygJF17 qHBhQERqNIHJeCIqy3OuS9sc QM2wvJEoCF74rJTotKjak5Rw xEw6lXVtQVizIQJsCa9MQOCo TJzoIDJzjWHLHFD1HB6uWZnc gMHszruhHRFlA9FxW9BdntZa sTPnALJntnWyr7ywYJJ1TZCg oSQxxWHgSlSdRrygLBL7RHk5 JKoqJPYdE1YdG8PnIKreQJG5 MTAwMiBcXGRiICBPVlIgIiA1 FRm1EPu8HbL6VGn1ODMGBtMl WeDuOxViUzDrEXImGJl1KEk3 XKzKIrS6WBW0WWPnRwUbHIVp FUDrAIz4GSOoJGidPOLtkCIe JEbeWhllFZilT60wZmWcLzui uTJlylBKSfLBHHJyxG4kWXBa ImadECTlQZrrGZRrM24rj6CN z3RmLQ8MWVe9cqFiqpgqdI6v IZZoepVnPXutjOWpU9klBgCw MCBSZWNlaXZlZCBmcmVzaCBs YWJlbGVkIHdpdGggdGhlIHBh gQrjklMmC3Q4ymGjAS8yBHLv TKPjM4LlQAAbK12zEMNotR4c QYXwRA5cJBDbXUD6ISGuyCNs OSZ3IWFzFG46VUKhweq5e86g gF0aQUxaTKFnOF67POvmVX92 LPzpCH5dRPEtZQlzsfLdqXwo yaD9DKvdy8xwb3jqsOGlRnxa wh8wELwcv5TwOSWmp0P1DIJb doPozNEdwZR9kNEgq5UyT9js ZP3qjJZtyBZzJSHpv9XyfOUd IGFuZCBlbnRpcmVseSBzdWJt dAZ0OJXcvX4sWsLgWGymkDnr aH2wHXZdR09um0UMo8VqESDu FRfok5zcpDmnl7XucDPxXGok GPGjvSUzZBnjzF4wOzMtu0me wXd1WCcetuE6JNLmtv0XYwzo YckgjJyei8RxrNXbIUoeZQAu NJAfZVsfQVFvQF7DBhBnJMG3 CAr0GEbtRPo0FIt6TF6WFyEi IAQbXODuBXAtUAZvIPo0GAuf HX5CQER8VoG4QZRrVDL6QDY6 MSBcXHQgMiBcXGYgQXJpYWwg ZQhgtUSjBU6vqKybizR7SPYi YWluIEMuIFBsZXVyYWwsIFJp K4k8OzdvAHXeVLnpVGFvX85f t3ISm6HzJC5YYUd2adBpxrbf pW8uSIMpztQxXHmktALvG0cs ZnMyMCBSZWNlaXZlZCBmcmVz aCBsYWJlbGVkIHdpdGggdGhl UZNxdVrxnmPvY9W0eaSiMK0o FVMxNORaP3KgXUUzJ98lQPFf mI6kDZHnNX1sZDUpsVO4ffRn USFiD9e7TrIjawKuLUPiKQW0 QMZiZiO8IOVrXEDndUYgN5nl TWzmcQLdj0FfPpDzpoCnI8Bv QRNzjDdmY9HzBM7kZJcgpNym jn3gdeI3AYHsLwNcwVmzr2Zb LiAgVGhlIHNwZWNpbWVuIGlz CJLguwtdkAb2TJChR5Gmw13x WNVymkAwqt6eR7Cfp7GrtCXc cX4fjaOchuWqjDUvuiTdNhoe MW2zDBZptAYim2PoyTI7bLHt IDIoX4Abv30oUGZtHVWklHVw dUX8PCLraL1aZfQgTsWoJXgj aEdoxV6rEYFpC92sh3TJk1Vn JHUiLXyvo1oxnAlhh3MheZOa JDmpNXKipRCcTGmqpP1wCdZd q7hdzRj9EEhbwjQ5KLLzkz3N JkhcJrypkTzxk5EveGZuNCav WGVxEBXrVZrlOJHkJJ8LZpPi POL4SMl8OAuwTYa8CFh2DG5N OxVcIXHtHYFiIUp7EHTgKIw7 GYsxIV3TVJS9KjL2GFRnTnL6 ZOE7TDWdWIYuCuGzCAOtFMCi NHslQVvnrJJyZR6vmTgqhtD5 XHBsYWluIEQuIERpYXBocmFn sY1ryUCrWP1VVGJrzHLHEHF3 NU8mXRSONfzkiDDiYZVkzKif JNnidA4zMT7HBOb2ncPwEJUa BmNqUlAfKVs1LFTaEnVei8ey wKYgXOdqMTH9tTRuJZIxICJl YHGjXK54SSjNNGMqlzEiELew bWVkaWNhbCByZWNvcmQgbnVt YmVyIGFuZCAiZGlhcGhyYWdt JjElshHrVZTvFQN3ACSwSpR1 GZAtSGHsbJJjV0qlMTgcxXSg t2VaZaCbnyOgB1SlBVVzlwYb GRVbyfdmXuwjgx67vpX0xETn iJRlIhStR45qrnXqNEqryOeg IPE3QJOfFLGsmQDuR7obDfGt VGhlcmUgaXMgYSBzbWFsbCBh nO32ceXux5UbMOa2ZEY1LNNn hsK7xBZiu4XmUwAoUF3lBBQl LXOgzHBqxG0ebnRdgaShZRIg IWpyeEBdNVF0mP9jJLDxFC9t YR3wUNwwx2CgDWego0qfsoCj ZLAzDSrzKL60oESkXRUgOAHF VQOyVZLclnCkqDn7WMWtDJS5 kG7fszSuaqXav6DyeHx0mLNb SKkkBDZaJEZsYrffpA3pNOil jP0lPMGaDHuvPVVpC3FklN7b FE1UYknwTXDaVQWLH1YqZ10Q ClxwbGFpblxlcGljTmVzdERv VvHbpJcnuR20JDXpxRSdYJP3 ZJ6iMNBamgtsTXWgVRElRNF9 ADupiB73wFHvZGKbGDCkaKJq qP7CRJJkJQG0PLortW91cFQz YE7MFNLkUXE7PRTqiRCuHJH7 KS9hmF5HwH== MICROSCOPIC t2tnnJVeHSIydVS4TcViCZKn DESCRIPTION (test a1kfq2PpgYJpbVHgYQxgqXQw code = 337) xyPiah92kWI5jG64UT5aLZBl GhY9ZSIpwsX4Vlo3HPMlCEVl xPRtC889b0yyi0oiscXtyLX1 qAacWEHfacwbUbX7IFrbNPLe chvkUEp5QZorJJXljCJ0SHHk iNRkP5QqLHTiOQ3vxgp3GIM4 ZHwzADBzJuO6WVIqfSKqQYVj lPprVTfby133ZTF2FeFbDELf zaZjzDtgtG2uAbFxAJGYBYYa r1YsZAPsBUVevxzsRJAvRAEa cn0= SPECIAL STUDIES (test t8jdqNFpHBOki4amEUDhhDCu code = 3161) ZzEwMzNcZnRuYmpcdWMxIHtc rkQlUBfpk0ZpY6ArHoKkWMge bnNpXGRlZmxhbmcxMDMzXGZ0 csRcNXWdOAbwUNEtQAwhWx1v gREyfUysFnXnAMRsj0lljlJB wznlfXw2l9cnVIPiCwC1rVUo QFxxQ1ayduUxhGZtK8CldTXm wTj8l3mjJeQzGwZ3qYElOPby H0fzlnLxzTQrCXWcBUr6eS93 YISbkE5coSIpYZzdniMyVaT4 CZwoVTUtQkK9OCDkyXLpIZDp E9brEXReOTacABWyNXncsSQk RQO6xRtik3S2nYHtcQJehVxh KhDlFwIxVzDCo3KyZYn6oNro I5JwJGYaTyY5lHYiSPEmLUrc WPRrPXNvhqI0lZhagwFxg08g eHQyXGYwXGZzMjBcbGkwXHJp PUQFq6UnnFytYHW5bNk4sDvl WiwlHLA1Xrd4JD7asn85tdh0 cZjuWRNsjakrSiT3QWyzHZMu dcjyHOm9BPedPHJpuMO4CIYm oHJiH8RuFWXfQQ9awyf9AXP0 WGqxHDVeMzL8WRMxeGTeHGGt wEdjJYlgd821NUX4IdJlIR5e K7Dlq8B0sD4eiNYbJHFwwMFz BqFhKMKyxl4klDMeTYjcy3Vg PJH7xiT1xSKsyTMoUQDpFJ23 Gnssn8NuBuvbb4EnF36lsSN1 EXqvm2zgTV5iHwK2tcRpXFjd x2ajnP3lUbD1GAjtTX3gVI3i HEElbQ3xdapvETQkEaUgqihk AACjsCfxyaXjTj1hpHozCQV8 CPsuX6fsvK6aVjY8UUdjM5as jM0bDXw5RMmoiYF8DBZbvY6g JE2oorcrh6edIIhfOMajLREd xcJ2roN0VRCvoFWjR5CvbK7v YQMmII0tmexul8etCYD2LZko ZYZmWRU6LiCfDWBgr6Xgjnl1 HqGla0GujSUoUBheQ25le108 OWJsveElI6malFCtpfbecADi baqeZGznreK6QGRnYTYlTWzy XGYxXGZzMjJcbGFuZzEwMzNc aGljaFxmMVxkYmNoXGYxXGxv T0lcYyTiN9QiYCChLaZlYVdp MRguaPKgvSFdhJS7qX2dHI6f EFWdsXDtE3AtKNOobfLlsSPp SJW8nXBluGMpUC5uOXbhpZIv r3ngf9PpT2khmSboxDT0UH8x EBAiJPXnESive1KtcD9dFevy bGFpblxmMVxmczIyXGxhbmcx IVRaFPqsR5mjPhTtAOLrvSbw ODjra9LwRSSqTVFpLwndblQq YCb9prJuABDuphycTAPqpNtd rM1dOoEvZvAgBtxdTW0pVXDe P8lqiBKrUKBbRPHoT3wgGfWz eW2yxHzvBZbhZeTtWrCgGjUZ p652yo0hUMAbgGKcvjQGjRJp rM9iSVfjAXhjFWagkUMdGIco b0hoCPZpo0c7uIQoTCEttgYb d3lhFSpsgoXzOIFraOUnnZDj UEQyc32cIPsziTvzsNogKZEl u4RxeZubm5YeLqOeFTlld1Th J02knEJypVQzeFtbWQMnbzTi UKFdx24mp2mgECHrCpQ8aIQj lDD1aZLrrLDmp4WdyExcHKFm f6qfLAFuxf8jnoadxLApd0Ov eG5tcrdsIVcjxADbplWlACUl y2h0iYGxLSHaPQPcLLmetQl6 OBEsw635hl8tbnZ5aMAvTIZ0 YWlsYWJsZSBhcmUgZXZhbHVh dGVkXHBsYWluXGYxXGZzMjJc bGFuZzEwMzNcaGljaFxmMVxk HiEoTFJwVLydT1swBeCgZ4Op HHKhSwIpiOKkS0pvbLVuIJBk YWluXGYxXGZzMjJcbGFuZzEw MzNcaGljaFxmMVxkYmNoXGYx RWweK1mlUmUiB3KaIIHjHkRg IFxwbGFpblxmMVxmczIyXGxh oybuSQUtYYfrX9hqImDbETJx sHkiZHhnf1SvAMTmMKCmWdfy azDsKBx7ofLjGVOvdjpnoXKp blxmMVxmczIyXGxhbmcxMDMz EHuxZ1exIoXtNOOzsLkzUHrl z5KwWTRvQICmWloiieSnOCfh dIYyc0sfo8JaX2tddZpnoTL6 EVJrU1hzuPBaqOM4IXV5iJ6v ZIuiovMbFETpn5VcLEQzJDHj GzM9iZ5yVPN4CbLDaKzcTXId YWluXGYxXGZzMjJcbGFuZzEw MzNcaGljaFxmMVxkYmNoXGYx UMzfZ8oqKzGfO2UyPALrIfAv iPmaDTppLJn6YibpdLTljenv MVxmczIyXGxhbmcxMDMzXGhp Z9yoXcHpUWZsaTvzAOzji8Fo XGYxXGNmMlxmczIyIHMgTWVk bKCguMCMHS13KHBcYBFpeUzj uR5tcRLHSOPkgeN6m7X9CVdd YQGhXDv2QUhlfpAxSSWnnR6b ULZsSN6vEHr6eaFxPMVau4Bk GU9nVCKpuHWbDBA0WVBoy7Tm P9Ffx6QlRIReSFTjsg3xptWd SoHPtDLbSMVtfr44NTNySQ6p P0zcGNHsHGHtwnGrpLGkb1Fr UXZpdJT3oIRxIO3JXfIIx57k IGFuZCBEcnVnIEFkbWluaXN0 xlD0tR9aBeKZtUWbViMLQAyl krHhKQOhda5sshRaYLVhWGGo f3XycHPmeUBkovUtL4Jlc7Tb UODiiu59REwxsVDsab27EM3b P6Bvg8DlgE3wBJahZZAiy5Di oYMchMKkOHBnb2MhP1vmzzfg URxvoFGyaI7nIEKsGMj5AEGq y7LiQYCdt0LuRzCukpMlKLOt NGAiKWPegP79CHP2xLdlnVys ogGtXA9mYNJkoxXzBULeVNSq dF7uKNgrzzSbJPGthjX0l6B3 DNclZHAzeaFbLscjLPE9pxBk kiY0oXZtY7wvecbgYPjgCYTj v3LxpI1wkTEFhOGbo8BtuODd gAFTwHPlHJ5ocmBfKZ4rEHB7 ODggKENMSUEtODgpIGFzIHF1 UCouHqxnDCI3hcSrRPEua6Yy RRbhL9rlY49mbPnvgRa2lZLh wBnkwVEuwVZyABRsaoI5x2L0 JWTrz5LkwdgySEKiMQolPAAy XGZzMjJcbGFuZzEwMzNcaGlj kSllPpukYrLpRNQpSIgqB4ft CsIqQgSmUxswNUD7lE== [facility] [id number] 16:41:12 Test Item Value Reference Range Interpretation Comments Case Report (test Surgical Pathology code = 104) Report Case: [id number] Authorizing Provider: Kiya Crane MD Collected: 03/03/2022 08:33 PM Ordering Location: [facility] Received: 03/04/2022 10:11 AM PERIOPERATIVE SERVICES Pathologist: Nina Kumar MD Specimens: A) - Nodule, RIGHT UPPER QUADRANT NODULE FOR PERMANENT B) - Peritoneum, LEFT UPPER QUADRANT PERITONEUM BIOPSY FOR PERMANENT C) - Pleural, Right, Right ParietalPleura Tissue D) - Diaphragm, Diaphragmatic rind ADDENDUM (test code = t5tdhXKlGTPebKC8YiLnFTPu 3381) n4rli5HpaFJthPWpYAwzlEOx pyRplg01xPG4zN86YN0oIOLy ZxV3OLXqjwQ1Cwx8NRFkNADt gLGbM615d0ugo8qjykFlgQX7 xJmpDVPcwqocSeD5FIymSEXx arbaGLh6XJikIADpcLD7BVAk lLGbQ4OgKHJtCQ7uqah5BAQ4 DTpmRDUaYcW1KZMqnNUkEQId eTdyYDhay252EMF9LoWaLTSs heVhgWtqnY0aIyToTQJUGNAR Y09pPh1KJVYDULZZKKPYJyWD SjOTJVZPKzHwK7WIP0hMFMNB VEFJTlNccGFyXHBhcmRccGFy CRYvRUFjYZaje2DbwP9dEs9d IEdNUyBhbmQgQUZCIGFyZSBu LXidjAb8WZYbk6SlCnSaX8Um TJVwDDWtR3spIZKau8MbzJvo sj9bb9PxMG7pa00iCJFob5Ey V5FkhfMfuL5gK77wvbXqURVj d24px0b4oJSglZf3tUSofxAv quNmq3Stc7ufD1zsmUAexoWv i07iHK4xGICxQYVkbj0= DIAGNOSIS (test code s2txxSSzQCOcf4ckGHJptEQu = 3220) ZzEwMzNcZnRuYmpcdWMxIHtc cnRmMVxlcGljOTYwMlxhbnNp VRJcjUFqY7FvyabwWIsdCY0f XQ6nnZgyxSQpdGJkZQYaGwYp w6fyl918tFAaq9btLETElilq dEw7jJkyE30xg2M1KshfH45u rKRjFTI5JKViHUHflUEcOLBh MSS3CTKfhSAqC8unULDvNH3d rzovXDosUVwfHJIigXC9DTRr mAPkZ1UmWMEpJXkcDWDqqwb2 LqGkLa5woQFqbEndAQwpDPZl QVLgAFooGKNaCfQqAQ9zWQSO SVRPTkVVTSwgUklHSFQgVVBQ EASuQVWMDBJDCzWrNVOEV3BO WTpccGFyICAtICBORUdBVElW AIPFI0DoUKSZVTcDQL9WJDve VLSgfCEnDDodFVIbYy3kRTDI SVRPTkVVTSwgTEVGVCBVUFBF UiBRVUFEUkFOVCwgQklPUFNZ BfjmNQIfPD6yJH9SG2LZAZOP UNQHJgWKNOxAR24UHoRNGUCc clxwYXJkXHBhciBDLiBSSUdI VCBQQVJJRVRBTCBQTEVVUkEs JKVKQuTBQFvhKOcTXUKQZ4DW ERl9JYXeyeUfQVAjInBPHm7F JdAHOE8IVBBZHbmzVNjHKEWQ YNndPc4tRnkBUbbJRECPZ5QZ RSBTRUVOXHBhciAgLSAgTkVH SUSKDgZcDu8HPF9THQrWSuPM L9ohlKJwQWTmtzPdbAIrTOLw IERJQVBIUkFHTUFUSUMgUklO XZcjMsIIIBPBPQ5UWhirRSNp CT9pEEVXBGCSDRXLTVMBQjdQ TsgqSF8EQTYCQPMXPBSBC6qz OHQyKN4sEHDXRI4QFCDJPHSO TFlJTkcgTFVORyBQQVJFTkNI YC8CEHqNVPxxEkONA1QDHgFj V4vZQmoOM3imRRGyLY2qLL3Z L7WENQBFNSIMFnCITXqWF99K RrMLUHBwmy17HDX1CvFkm3T0 BOH2TONmIIHns2feUOPvjRLd ZzEwMzNcZnRuYmpcdWMxXGRl CsRif3bjx153aRQuf8udCYFb MgS2zJUnVEChqTZnK856XGSw CBzte5eja0XkALNlzDHix2B5 NYIGbskduHb5lEbqK51ta8A9 RvblI5iyYRIkQCRmB5KuZY1w ACDbTrq5WAU7SJB9WLDjAOIs K6QtOB1lMHGepNTmSTk7s9iw uFueSMIcCJB5i8anRCdrexEj PG5acp3ggJm6q5wsaxXnNHBl IKRsrDSZTNUzC1DqlNhxOw6x vQb2hNkhMnxjANS4Fkp5JU2n hd33efc6aIneTOLmtarrLgC9 GXhiXCAyckmqGPc4ZVlbSDXl tRN3VFBfyYDmA7LoOUTvIS0d lsq2QGM5LUliZAGhXxT0VWFi mCZoBGIweFvdGLoat364PDA3 YiZjRM7pR0Mus4I4zG4uhLMl ANXdcUFaBfUuJBAuep7shDGa QVhpo8LkWQJ7kaN9oQQqsVDr YIVhNmE1AWytIL4rwf43RBIh KXI5xk9jrMXpwJwpayJeaHPk VFuyM7YvQNFtu476SANzH1Zo WRDhu5F1xkDfHwQeIFOstBC6 otP8GMJjRS0nmcist3otTFpu WWyxSPNyzmM9baK0JATkhYCh Q5IwmB9fBCEdJX7ujlknu4nn UQK4AMbvRWZfTMQ0ClBxDUVj t7Ifbnu1WzQws8BcrOBtAAzu M68pn172ILMnjvBjL0nfgRDr tkutqSZppchlPThllrI2LGHh YEgnohqlFNPuLRqyO4nvKeQd KBYicDmtEBwof3JxPQCgTEGt BsYhgZRsVFPkAub8PZTzzYAs HBZpMjJbP0nitypiVmNPZCRg e0ngA1euuKITsLJkC8UxRLvv cbSlSZdqVBanAePiPDd9IT80 AuKyHODofv26 COMMENT (test code = z4sboBMiTSKapQH3CqKuWFKb 3359) m7ack9PkzXNxlJGeHHaiqVMe fmCbxs43rVD8wG90OA2xCMGq QdA5JAKzonN7Fef1TRTxQCMw xPPyS469z8lxg4xincZrrMD0 dAekJMRtypsmTvA9SEbaGFVr dfgjXNv0VItxCEWffNI0JSNl eNFoJ0AfXNEpUR5figr5TYW6 WJjhJECsJbQ6JCJykPDfAIBs hAtdIRpvv168ZTH2MePhZKRd nvGkwRbdkR5lUbLyDUERCnYm S6FwE2lodFEzoTPdjaVlOLVp XICqseUpvaypDP8wFKfgxVnd EzQkkzPic7C2SVDieC0qPE3n BESlSZ8wbJ8pCQDfggvmFGCr XHBhcn0= CPT Code(s) (test r7zstKWkDAVhfKJ6XzJdBFYr code = 3357) m9qhm5WggXOcpMGxJGxonBIe nrKduu52uIQ8gT20NY6cVSXw MnK3EZAjkoH2Qcw7GZRrQMXh wUQhI414n5gwp5ltuhSzvQP2 gSwuLJUpapbuUyP5XKbzIOKp ukdcQDt6FIjhFZFogMN8FXKy cLTsO0IhUCSiGI4rdhw5YMJ2 BEriKBVgCdO2UWStfHTdLTPk uJwtFIjlr445QEY6NsPpMROh ldRzeEurcL9kUiDoQQW0VUEb FAz2IFXkyoJ3IDYcRkytLYOg cn0= CLINICAL HISTORY n7ltdFDoBNNivAM5MlJsCNLk (test code = 3356) h4wew9FkyWLtfTKfCZdouGDv agOhln65rFR2iK12VC2rGGLi VwC8XLFpfoY5Fcu3LJXvVTXe sXOdU887d4huz7ndneCqmYH0 qRpuOAEbvgeeOiR2XGrzAVDs mxikOOf0QKmfDUYukKR4KNRj cDZpP8ZqUWBqFI7mvlt9ICA4 QHlaCUQwUnX2APDoaCGoUSVu xNvzNYbhc370HLB7EwWfSLLr mkXfkIhhiI4vAoEmDYCPdDR0 QY7fWVYvwy4= GROSS DESCRIPTION t0hveXPlZQAaxNABBIViG5gh (test code = zhLiZIPnqGPaI1JmulgyXGbx [id number]) IS2jYA5ulAjgcSPkdBCeQN0G XGRlZmYxXHBhcGVydzEyMjQw NHWykMWefRO8EGKuOC7appie OPobINnyRWKvnsF7MECdxCMa Y8GxDXTrRS9nyzznFSZ5WRqy lJ6nvyOHXnrbBj6wmFPdkXjt ZjFcZmNoYXJzZXQwXGZuaWwg IFCxUTe9iN7LPufxHUN3MLMZ GehyJXCzGG1Gx9hzUOTozVNl KDQ9QRhneLCfKANzTMDtFWk3 THTwCVcqcONeKB3dfDhfSjzh aMllv7AfbXSeDXlpOFXgWERk IQvuMELoGC1LIxHvBQO7ILb7 QMrdCLe3ZEf6EW3IKdHbCCLe PJKyARN9DDCpBJh6QFeiZE3X OTJ2RyF7GTX7LWE3DUS5VTSm XHQgMiBcXGYgQXJpYWwgXFxm zKEaVR4nqDihtGAafoFPJdCJ s6Z7gHAoYXXsetJIXhubhSzn TmVzdERvYzEgDQpcbHRycGFy XGxpbjBccmluMCANClxsdHJj ePoejgUzYLLaP0XwfpSpZZZa SOGtQXsiYjSkQEVio1v8pMN0 tQStvXJ9bVCsfFyvJfLvON5z xHKfWK3iQWtlAOtsikIfc4Vc GT31gTOadjYeudTvGy2gLGNh ZSAjMSIgaXMgYSAxLjEgeCAw HpoyeIFeGkQxO34izNXotG17 EHUfryocODQcrL8dTLA2vDOv dTIiLzIwE46aqvYpc0IrBdRv ZIPeGaonH9bog5CbdbldFzDw UO4aziKqCLQ2sGT4WAvtIKJa wCHuJ9MtAM1oNX8yWEinz7Qs MTppe9ntvoWoQDXvJFadNV57 fNWgPXLfDKLZrFHyu9DoM3vd JO6qtRSzVG83eWKuoTgwc8My sBh4bWYyQZqrQERpBg9XTUSo PLhnYIBuwQPOFEP1DH5dLMqe wSBhlxsrOLRsW5CsX1QvobDe sSLyKMZcwhPxk4hnOJH2HIEj yIVddOEjPhGnJejzALE9DZp4 NWzuONUpQ2ZjJ1QjMAmwBGB0 MTAwMiBcXGRiICBPVlIgIiA1 JPa4UUn2JzD2URe0JUUKAkMz WnKtRlXaExHlSEYvGFo3LTj7 CPjZEgC0NDQ1MOLuGjRhZFHt BJSdEDy8ZBNxZQghHPKdhPUk RBqbSjsmJZbhC78tZmJoGmih sYFqdpRGYnWXWFLzlR4lAXPe XibpDABmRCdnFERbE03ia0UT l3PfXI0LWXk6qaImurqaaG5i FGNexrXpZDpdgAZlR4rdLsUi MCBSZWNlaXZlZCBmcmVzaCBs YWJlbGVkIHdpdGggdGhlIHBh hVwoslGjH7H3zsYeQL4wYDPd CEDrW8HgERSrD84vHJTudC4z QHPoCL1aNCEpPTP7MVRrzSIj VBP3DCTdPW60HGQhmmz3d56o oQ7uQPbtWXFoCR02GIefPU81 ILceTC4jKLOyWOfuksUqpHfl lqP1YCqnh5ytb7pzbQYzHycy hm9mYDngm8WkCEZwh8G4ZHFl pwTskWCyaSC7gSUgj5LrM9vy NP4mtTEdnHUkYRMaz0WteYRm IGFuZCBlbnRpcmVseSBzdWJt rRJ2GULvtT2rOtFaMBymaJhs aJ0xERZqV06an8XPh0JwGBCy FKbid4vllLxbi0NnzPWcOZmq XIPbnQXoJPifpO0bUoSof3ge zUi7WEadzhI5JBDvmp2VBxlu ZnfuqSwkd1EkqTNcSAfcNZJy FEVdUPtxZVObRS0IApSnDNO9 ADr4OHjuBMm8HGr6CF4OOeHi ZOLuXALsFGHrZKNfAHo1MVqw CO8LLNE7DtB6MEOgQYO4MHL4 MSBcXHQgMiBcXGYgQXJpYWwg QXmvxDDzJA4goDqyfbX5QFNj YWluIEMuIFBsZXVyYWwsIFJp O6k3AcubQLVzQCetDAQfI57f w2MBt5YkTY1HGFk0utKxjsxd gP6kWIFxdiLlZOudbTBxX3sa ZnMyMCBSZWNlaXZlZCBmcmVz aCBsYWJlbGVkIHdpdGggdGhl CAPtqGnhkuUnU5K6wkRdLN6r ADEzJBToC3TmJJHmO77kEOKt cR5fCEBlUN7yEGTlwYX4rwNw ECJeR5g0EoYejmSeITMbSZR5 LCNeYxJ7SDSzJYLlyNEuI5mr WUepgORxs3YcLkDjbeYrY4Ds GTHhmKugI5XcFX7wNYkgvNuy ux7urmJ6PWDmHrAckDkqb7Rj LiAgVGhlIHNwZWNpbWVuIGlz GAXzzciefZv4BCQrL7Uaf75l IZIjsqAtro1iC4Qwt3TquSGy dY9rcxWlpvNmyDKnixJzHntp CS7hQBEhhBEna5YivZT2eQCm GJPfV6Kmr93mONDiSRKkmSTp gHR5XUFegL2kMrDdTbXkYQrc wQyslJ9qIOEaW81qc1EKh0Mt NNFoZJdkg4hjmEhnp6RpyVZg KOgaXLPuxYCeLVuieD4uGhQm j3pbtUp5ILuxqoK2XTGcsr5X MxqzJtefdAxar9GgqJVdCQhx VJUyLFLuXMtmFOUzPX9XFrNb UYR7YEl4YXovLMg7OVa3LA8R QuPvGGEpWYHsZHe3GFPbKIw9 QUlgRR6ZGUI7GuL4JAHuYbR7 OGC8GDMdFIPgIrRfQEIfMETp ZYllDTtboNAjBL3oiFxwrhK6 XHBsYWluIEQuIERpYXBocmFn kU1cqMKuEB1PHFQftMUBRQX0 DX7lNRZHUfwitDUcWKTorLgi YStbjZ7lAT6YKMt4mpHzLCDc VaScUtGpQJl8MYNdVnIwh4fv mMIrBOciAAI3ySLuPGDpZNAt TPRxPN31PZnHSUYptlAiEKyc bWVkaWNhbCByZWNvcmQgbnVt YmVyIGFuZCAiZGlhcGhyYWdt TwPwkfLvEBBmESO8EOLjPwM7 BQNuDGJaxWRmC6daDKcurXNc w5EtSaHjypOwH2YeKNZzldCg PGYiqhoxAlllhq66iyX9dDHg yABuXdZeI43vlgChNUmlcQpg FDC3ONCmXCDtcDPyG7mfLhFj VGhlcmUgaXMgYSBzbWFsbCBh pD52zpSoi9DjHMb8JBX6VOBb djZ6kWWei3QuDyCwAG9xGUNy QDHsjHVrsH5yhdYzukEgHHMs BXgkfWHeUAG5dB5hGTWyKL4n UU1kQGvud2FyEIoyv0ustoIb BMAjZWhqEF68nIHvZAGhLKPZ OTDlJJJdseJmkGu6RKSzZIV7 kS8cthQfipCsl7BmxAk3kUKc WQsvVTKxHFMtGnxxkI7oNOxh yZ6yAHLeVNcsSHKqS5JrjZ3s MF8TReqoWBIvXZXVS2ZqT56F ClxwbGFpblxlcGljTmVzdERv GaCqoUtihG80KBUwoYRbDBU2 XO1aBAZdjoreOPQrZVFtGKS6 PUlbxP56gQBjIVBaRUVgxCRn fK3LJGIcQCJ8CNhqcD20zTLn GL8UNUOwJXG6HABauXEyCXH5 EH7uxG7QwF== MICROSCOPIC t8vqsKVfZBTxjSZ8QeXhIZJk DESCRIPTION (test l3dcu0FmkBDcsIVlJVbdxIPp code = 3371) feOwxv70wDC2zH76FF6uARKz DkP2UDRwoqK9Gjr7FCHmNWQz mKPmK967x0gco3wfjzFimHO8 fMfqYKWynifsKwB4PGguHYHl zecqJQw4AAjiIEZywXB3MTGi hKWfQ6SeVNBoDG0lkoa0ECT1 OGigWBTbFvH9NJClrQOrMKEz iUsxKGihs926IEB3WuYyFDEv uzTofZvyyJ0wGeNcPBATOKVu i6DwIGKmRYXxejfwCYPrIWTm cn0= SPECIAL STUDIES (test o5nrrQZyCYEnc1kyPBXasHEy code = 3376) ZzEwMzNcZnRuYmpcdWMxIHtc idZeKJdpf4FgI8SmBdDyKKuk bnNpXGRlZmxhbmcxMDMzXGZ0 epZmXINkFOnuBHOoHVzaCf1i tTMakUwfOdIeWSIit1zovoXC gqlqoKj7t6sgPEDnDcM7rCOw UDvfY2matmWdhJNeL7DieXDb gSf5i8idRiOtIhE7oBHlVUqi S1djbxNriRVtPXIhGHg8kK51 NUOiqD9dySPsWDlbihBiQkH1 VIzcYEFsBnJ9SLVjpYKcYSRg T3prTXSsEKytLCOhOObdvRFl ONH6oZopu4D3uYBjiYXgeMzt OoVdEnTfNhSUe4WrITx1oKgt H2JwSAMwDcE9aYXxPHVkDTyo GCVoPXZpiaJ7sScplgWaa02f eHQyXGYwXGZzMjBcbGkwXHJp WIMPx2SdsZewRZV4iNo7oVav RlfwACO8Meg1YV9uzj89obl6 nFkiIZTueicoEuN3ENiiLQOi cvqjYCl4TPmdBCBhoWX4IQMh zCUyS4NhMPBoXU0gxbo3THG2 ZMpkJRFjJlS2LIHihNDsLTOe xJakOYgsn398SBN1UuJdRN2a T9Jng9V4wE3vyMAtEZMctVAh CbMeKWIlyr9xcPNlLZqxk5Wl JET5ytZ5wPYzxXIgISKsKT97 Zdkgk7EqQlynm1VeW04iiYO1 YNgcu0ecJY3oWaZ0kiYyQLjh f7smhA9zQfE9VEavFO6cXV5g JDKaaE4mmizuBPJtDmHzqmef ZRBttPumpaMdKl7umVfaKBA6 ANztV0eocF1uTgP5TNbgW3ka wB8kKAr1JXvjhWI4LIZenB7t OY0nrfzui2dfPMtuWGysZYBr qvH9lqV3WEMppFVpX4KcsL3q MOGwBV0kjtike2flZFG4DVso ASXcZES9LjMkARJap9Eykox7 MpUvv4JrmFKoTHgbT18km865 FEAxirFjP4rirYUvnvmeqREr daorNPxxciL5PUJdNEQaGOhk XGYxXGZzMjJcbGFuZzEwMzNc aGljaFxmMVxkYmNoXGYxXGxv E7beUeNrI6BjFFJzXtZiJKll MPrdmUFqzVLkrUG2eJ0nFA7x OBIcqPTpB8IqYGOxyyXkcGVu XHV3xURrcZKtFW4hZCubsDJm d2zel0FvV5omeMagbEK6DP9x LMKrWBNkXQcgo4ExbI4jQods bGFpblxmMVxmczIyXGxhbmcx JRKlBBoaR9qyUdHfRSQjdBev HHsos8FpMMTaYTHiSldqzjAq QIl3zrFrPNDfcggkLIOmgGpj jV8hDbLaFmTmNrkfHM2rMFUu Y1jmaCUqLTCsFOUzB1rfKpVf zW0ftUqqDIdaAiNbWdDiVkMP e816lt9jAJYjjYMeypNUuXGx yH7yETwrCTxhEEwwgJTsKAto r3bsIDYsi0c9bXHzXSInpaRg l1svHAujsrJcRTHyeSRdcRDq BVXge42lZPzmiJfyjFhyRRBk c5VloKtdq8WbRbLeWBovq4Dy D69utQDmhAZjaFdmURNdewXr AUSmi53mh8bjHEMsOyI8zQDb oMZ6hXNqcUHhd3QmnTydJSHk w6kcRMWqlb0cdxwvmFMqq5En wO4dlluyBTsbdTWjylEeTABk l8m9yLCzBOVwJZEjQOpedPs9 QTLqz495ix1ysvH7sADqEPU9 YWlsYWJsZSBhcmUgZXZhbHVh dGVkXHBsYWluXGYxXGZzMjJc bGFuZzEwMzNcaGljaFxmMVxk DlUgSNCxOBybH4hhJhVwK9Hd VIJiGbPahLZtT8ouoLGsJISf YWluXGYxXGZzMjJcbGFuZzEw MzNcaGljaFxmMVxkYmNoXGYx GIcjM3bmWcDuD7GkMIQuNpAf IFxwbGFpblxmMVxmczIyXGxh psezNIEpVNmmA3rpPdEgZXWr eRluRTihh1JsGHEcZGBdCbse ajZqZXs4rdKyDCHmhnmhvBOe blxmMVxmczIyXGxhbmcxMDMz NLxoJ1njKpZhAZIpnLnyRVwc i5CyCNEtJVMgFjieylSuXTjg nRHqu4yhj5OvS6urrTebhGM6 AEOqT6hcxDXjdPO4ILL8zD6m FPztaaGyQWFtb7XmLTSsFGGd QjT2iJ6kRKY6RgEQnHsvGFLp YWluXGYxXGZzMjJcbGFuZzEw MzNcaGljaFxmMVxkYmNoXGYx FHluD5hsNcCwC7YoDPVrLtGz tKanUQraWVm7RpdtkRKvawjb MVxmczIyXGxhbmcxMDMzXGhp D7ceIfAsRLQliAkxKHyni1Ql XGYxXGNmMlxmczIyIHMgTWVk cICmoYALKP69PSXyLEVkhYeb rO0sdYJVOQYovwE8z1K2WPqq SWAwPLh8XFbaanUcQINemP6r BTPePZ9lQZi9ezYeQYScs1Yv TX8fLNBgfBHsDQH7NJEcx9Hq S4Ubs4ObHTJfCPLedq2ricHf EuEGqVHaBSVyge77JDZwZU4f I3jqGJPpRNWgnfCnlJKup5If ZMLjkAG5mDQjJD2WVkDUw64g IGFuZCBEcnVnIEFkbWluaXN0 czN9xV6yQpMTtIWtNaXRZVwr leMyNBKcwi3ivwVsXWHxRZRj l2KsfFKkhBSvrtAtU6Oom3Fl JAKqgu58LRsohLXwxd61PZ8y O4Frq5FkrO2yZEdeAFVxv4He dDRhsYSlWEVco5IaO5zuwzcy EKthhTIfxI1yORLoOJf8OIEv k6AoAZInh8KeYxGkubYwCFCx PNWuBBIdpV62UQJ7lFflxLvk kfIqKO0uHOXodfRdXIJvSLZn pG9zYVsxgxHaJXKjmoI2q7B2 WXufOMDfwpSnKwuzTSH0koPt gtA5oSShY1hglbicQTmzMPLh j6DhyG0itPKMvLVtm1FuvCIn cOKSzQOvXA9tqrZqUT4qTIP5 ODggKENMSUEtODgpIGFzIHF1 QZhaHbptUDL6zeFxOUWzd3By LMtlJ4wtJ84jxHsqhZa4vHTv mXlteXSefKHsKITyteD1z7P7 YYOxv3EavacyQQBnZAnbTUIy XGZzMjJcbGFuZzEwMzNcaGlj tEuuLysvKkVpDZGiMDohL7yt WvOhGnXcWaggYTU1nE== [facility] [id number] 16:41:12 Test Item Value Reference Range Interpretation Comments Case Report (test Surgical Pathology code = 104) Report Case: [id number] Authorizing Provider: Kiya Crane MD Collected: 03/03/2022 08:33 PM Ordering Location: [facility] Received: 03/04/2022 10:11 AM PERIOPERATIVE SERVICES Pathologist: Nina Kumar MD Specimens: A) - Nodule, RIGHT UPPER QUADRANT NODULE FOR PERMANENT B) - Peritoneum, LEFT UPPER QUADRANT PERITONEUM BIOPSY FOR PERMANENT C) - Pleural, Right, Right ParietalPleura Tissue D) - Diaphragm, Diaphragmatic rind ADDENDUM (test code = l4xzoKWoQAGvhHJ6AcVdYLVz 3381) f1urw3GahOOryOFwXSjlsCXd lrGfsg04jHV5oT44SM0sIDWu NiM4LXBtpvE2Pkq8BXTkOFVa yVXeO033l7nln5conxFpeTT0 vCzcDNNzgigcXqB1UCneSXRi iacwJDp2SHabXDVjoRO4NRIg tBIbQ7QqBMLxAE6plgp3FXB4 SFpqCFUkPsA9GFLtuRXaPITn oJxyRNqnh212DCF4RbGsJRWh chHquSpnqP6sXoRoBNJBBEDG X94lLb7TDVPOMHGYDQNKRdAW YkSOFUPNAeXwP6SII3iTNBWH VEFJTlNccGFyXHBhcmRccGFy UAUcWGNjCSafb6ZrbD9oCu6d IEdNUyBhbmQgQUZCIGFyZSBu NEcotIk2OHPxz7KpRuNnK4Jv DBBqQZMkW1kdBLMxa2HneQab qv5sh5QmCF7sw96rATSiy0Ji Q2MsfwIyhD8lM78euvTdMPLz z92ih4r4wXCstCz1hGOdxiZs dfKhd9Cmm5jzB4ymaESjraRj q42yEV5yDEOjYVTkab3= DIAGNOSIS (test code v8fzxILvYBDfs3nwWVCkyQYi = 3220) ZzEwMzNcZnRuYmpcdWMxIHtc cnRmMVxlcGljOTYwMlxhbnNp EASfgULwT6RzwgpyYSbnFI6q LE4pmZlhcQDpnYOlFACqQlMb g4zmo321vRNqx9fvFLCEbyho kOc4oGqkY66zu0D4ExwcX69f aINhXNG8WTMyDTFljSWeITYf FWF9IJBvzZKgN2bmEXSdXU0n palbEDuyJGzgBSSylXY2HSDp dAFoA2DzITVvXOqdJDNacsv3 DcLkMb5lvUWlrCccUFncPPFd YLIkQJpaQPXtDqOzZR5eZMVN SVRPTkVVTSwgUklHSFQgVVBQ KLRhUIJMEYXULcZlLLFRW0SC WTpccGFyICAtICBORUdBVElW EAMXZ3VgAALIMRdTPV4MUWbq FLQfzNIkAUjpAZWjVv4cHQTK SVRPTkVVTSwgTEVGVCBVUFBF UiBRVUFEUkFOVCwgQklPUFNZ WkdkFCRxTA5tOQ9CB1QDUTKD HLIXYfJQEVyXJ44MSzEEGOWx clxwYXJkXHBhciBDLiBSSUdI VCBQQVJJRVRBTCBQTEVVUkEs ULBMMfSVAAcvGFeEMQYYL4TP VQb5YPUflaOyLDFwKdLKXc8L GhMSPV1CDIXCBipzRHiNBBJJ SKbgXs2tXlzMZhwBEIOUA7CD RSBTRUVOXHBhciAgLSAgTkVH CKXHOkImJh3VTP0MTKvSTpGM S2rcqVBgKTNyulDmiZIjWNBp IERJQVBIUkFHTUFUSUMgUklO PGekUmEYVMHTTV3UKtswKSJu DU4iJDUWXNMGPUTBYHTFAbbG KziuPU6QKNQXVNFRVGJZR1lj JGYqWB8hUDQTPW3ZJBHZGQFX TFlJTkcgTFVORyBQQVJFTkNI DO6MGDmNKBmvMnJIC0PZShQf X9hHVcfSH0ijUPQpEZ6qTY5E P9CQKWOOJFUUYoLQVAlZK57J GpSSFEMvah75SOT8GtSed0E5 AKB5ITAeBIXkg0lpHAFwjNKo ZzEwMzNcZnRuYmpcdWMxXGRl EwPoc9zes570qXGff9stOECq RlV5iCIcVMQsfLCsD848BTOa KJzax6dry6DaNXRjmZVjx9W7 NXKEnlstuRj8wNxcU12lb6Y4 FydqO4hbHMWoKLGwN4DsYQ5g ZYPqAwx9UUS3NGI1SIYsKHJb G5DoBH2uJLMahOPmXXm8a8zt zNjbODQnNFV3g4yaDHzjboFd YZ1qpc6pjSz2w0gmlwUbRSOn XBFayOUOVUGdR5LwfXiaQs1q bSc8dYatImyuOWI6Keg6KY0h jv44zdy1eUixNRKtlkavYbV4 HNftEZTxuxbtHZg1LSibVVPv gUU4TZGubJSoZ7JwQQFxGG9v wba7WUL5BLidWNJdQwI0LVGb rOZqYMFroOfpXRtwa226PXK5 UwNdWT2tX1Jpj5W9pI9pgMNl UBKwqZNxOqIsPJQkpp5iyUBf NEhpz1PqHKP0pxV9yCZzaUOn LLPcUnC7QRnxGQ9zvy52JTYe VYW8yh0qzPIbuZovqnDcxKFb TOgoD2RaTCXwu771YCWbL4Kc PNTxq1J7oyQlIsXrFLPfzXN7 ctH3LOUaFC4hqkigy0jzGMfp UBlgXYYmahP6gqK6NABtyJHx E5UewJ1vGNWiYY4cmqkwx3nv EHS0MYucDWJaDKW5QiOvTXVm q3Qhsgm4XiBxk6CtgDMyVSyt Z90nv210IWTzesPfF4aavEPs eshusVTcgurgNXmerdE3ZYSl LBrgoxhkHWZrYKvaI7yvApBx LTPznQzqGPcro9MkMMOwXLUk McBsoQQdXJSiTyf7GIJlzVQx YIQkWdBnM8xfkvcxBjWYZRSo r6rgJ4ftjKMUdWSrW2PnRHeq rdToSQftXWgfUuEfILr2AV71 JqXjEFPrdu64 COMMENT (test code = z0crbCQqCOMbhJM9CiItJIXh 3359) n2ddy1XpbVWbjPCkGMtihLBo hgSayt60mAK8cO08NG0tHQTn QhZ4XPWjtkH6Nfd3MUGoOZDb gCAkK220l5jem9elbyAxxXB8 wYlsXNTcboieXpN8FXvgKHBi qdcgGGt0WSngKKFahTQ9BFJn bZNsY6WrPGIpHQ1leyr5AWA2 OOafVXWjXsT1JTNyrXXaEROc yBerJMaek599NAR3LgDnMJGc fuXooYtgsY9wOhBnEDUARwUl I4XdJ8lmvGFblRWnqvGvZIRr COZapeRypqkmTF3bNHwtiTgf OsMaxaCjl4P3PKYpgS5bJU2y QWYaMO9oeF0nDYAsejsrIQYt XHBhcn0= CPT Code(s) (test u4rtdTMjPZComSV8ReMcCGVg code = 3357) l5yjg0VneATcxKBsQAbtbOHq saAvsf40mDT6tC57ZI0uIDZq KdU3GNMrzrT0Dtu1GTNzCEEy gQJqP409c3tbi5kfikNepOC2 uFuoMYCcsrxbPtS4QWmmRYRt dzerVMs0IGngACJvzIZ2WQCs aCKgF8QwUGTeNW9zbym3LJJ2 LZahSZLpWuA2AGDmwDPyCGFk kEjiVKlde942BMN5UbTeUVOj vpZvoSxzxU4yCaXoBJP1GGMm GDk5PBYnreS2PNLsUjzpXMNk cn0= CLINICAL HISTORY n0bpiAHzJGGjtES6JyBdCCGn (test code = 3356) y4pqf3BrdXTtgVLqTHbwyYTr epYpyr28eJO3mH09WS9qBUCe OzS5TDFqdcQ5Fvs9MCWyYSMx lSGuZ108n8fuo8yexoJnvXF8 cZjjGWBypfrcNnF5EMttBXVs nxfhCKn7JJsyCTFncHD1HNGw xPTnD3FpDQUoQA0tvcq6LNK4 AIczRMRmOpC2MSIeaNSuJDJv wLucAIsnc252JQI7GcTkGCBr kuAeaMjjmU3rJtQcHHIRdJO9 LD3bYNYipi8= GROSS DESCRIPTION o0dgzAStAOMcbRFHWVKeZ2zi (test code = qtPjNWXkaNIaS9OazawmSQny [id number]) IC1tUW2evTcetITtdADdPM6P XGRlZmYxXHBhcGVydzEyMjQw LJFpeQEcnQQ7VGVsYF8tpbfq NWbcIWokDOKfafW0DLWylAMw G8UsUAYlIP1jmpslMLL1LGiy cT7qwcGMUcneAm4dxHViqPcc ZjFcZmNoYXJzZXQwXGZuaWwg JADiYXn5bM8HFxrdAUU3TSRI WlspFAAqFZ5Pn7kwLNQuuVRr SIJ0HCgmhJIbAZDiVGExFUn8 VBFyNWyrmGCxXL8jdDzjIvdw hAacd9TpxJFdUAhwEHIrBEYb FGhtEPYvJG8WOpElBMW8QJc0 YDbxTZq5FDs2DI2HIiKiYIRc GQIbPAM6KACqVWx8UUlmFM3I VGW8EvM5PPS0JWP9QVO9FTGn XHQgMiBcXGYgQXJpYWwgXFxm pIHtSZ1wfPeujWMwkbVAUiDG a8R0dNYwCLQiouTWZoakpQwm TmVzdERvYzEgDQpcbHRycGFy XGxpbjBccmluMCANClxsdHJj lQcwmnXgJNBtU7OskpKbOFBu MSHdIGxiAlHhXEXxk4x6nNP8 vIXkpDW7iJRlsLobXaHjWX0b vWFkHY4oWYgjOWnfdiNwj3Eg RP84yVEsoxEckzZzVg0bQNOd ZSAjMSIgaXMgYSAxLjEgeCAw QtyfaYBzYtQzD87zcSQvhO88 YHPdwrctUIPtiO2zWSN8yUDy vMMmKmGwH24eshIjt4FaHaUg BDOuAqmsK1rev9GaefxiCvAs WM5mqgHaAZR6yZB4HAnjXHRl yJFxA9HwVV8uJH5jUFwuw5Dd BJljx4aykaNjFMObTKgrCO38 qKLjGZPuPMYJwCMvg7MdA7un QP7rxSLxLC39zLQyzEisp5Jk zFi7iVZcOWssRMUtTq9MXLLf KLoyVRBmdFBBVYA6UB0gTFzh xUTkqevgFFBaA1RsH9VsdjYc uTKaKDVrkcCgx3wgLXQ9IEBk oSGhhJVjNxLnFyaqZAT3UVx3 RGuzSMFzX6MdN9InLGcsGLK3 MTAwMiBcXGRiICBPVlIgIiA1 UPm3SQh4IiZ7RFy8KJAKKdNs ShHpTySpHzHeQVZsHHh5KXo5 NMgZLsB0LHX4JUJrJyMcGKKu PHHsOYm5PKNePMsmQGBedKZq QPftGprtFGwiI33sYpJtYqxu zAFthyRBOyWLMDIwmG7fKGVm GirxLGAvOZqxOYIhZ83nc3II t7FvYR5PCOx9lhRcqgrnsW2t WBZrmkFiSOdojMVaN8ptVrZi MCBSZWNlaXZlZCBmcmVzaCBs YWJlbGVkIHdpdGggdGhlIHBh vVhhhzRqV7L1uuHxCQ2zXXYc VZGzR1RrWIMqQ37vRHMclM1t LBDkBZ2oBBUaJHF5ILDknFCg SDL4NRVnKD28EGLjjgp5z77w uB6vNTphQMEyVW88PCakDC31 VMezWB9vVQQzDPztqkMieUfo pdP5VEvsh2slb0tefURyDtfc vg0eEBzrp1NoCGUzq3X5EQRh gtVjvPHgyNC9zCRpv4UnN3gz GO6laDThqBKsIRTsq5ZivKLj IGFuZCBlbnRpcmVseSBzdWJt gGC9DHPndA9uDfQeVWztvPrs iG9mDUKqB51xs4TAu0LrUCRx PFvrm2ljwAjfl8UwjHAjPDdd EEGqtIPnLEdlxC8kPmCzg3wq jCj0JHvgpiA2CGKqgt9JLvnc OnkivWscb8IeiOIvATaeKOEt NAKfVMeaRNVeLV4TMzCbDZL2 NIn2NOnhTCk5CYo4GC6HWaHz LUCaZQOsECMhZOCqOLg1UGxv ZV8GSFG7JtD7JKRlUUQ0GVR7 MSBcXHQgMiBcXGYgQXJpYWwg CLtihBIrTU7pjGrtnqX0WOSr YWluIEMuIFBsZXVyYWwsIFJp E1h7BmrzLERiCSblYJHzR26e v9RKt2JxJN8HWZd1wjFzdeph qA6lMTLseoPiVExmvBVzI8vb ZnMyMCBSZWNlaXZlZCBmcmVz aCBsYWJlbGVkIHdpdGggdGhl ORTudVdrdgCyN3E7uvDpQY4q FRMqFXAsM9PpKHPkR58yPQXk pJ5aQDVuGE7ePOOjkZP2tlWd FVMuY0u3SnElrrHiSSEbMMS3 YHBmLnL2VVBjOPLyxRTzA7ay RAluiPHtw4WzAfEhuyAeD7Yn ROXcwMmtN5TwXC0jPRcpuFaz wc1ofjX6CFAyVjAshYizu1Ef LiAgVGhlIHNwZWNpbWVuIGlz JXXccvqbjRf6WSDsO0Dle70t HJDxfbIrup8wA1Pxi9AqdXZs wM2oeyBvrjTfvALrbkIvWnvv TQ9qIJYslCNnb2MigRX7lKAo OYDeE8Bpu25zADRwHUCftXVe jSE6UKAujP2lXpWeAhFrSAyc cGiplN4iNFHvP88hs6CJc8Ds ZBVbCLxmt7egeFois9VczUIj NAayYRLtiBYwPFcdzM0vMxXa a5ljgTn6NGshrlK5QFXvvy9X RwvuLtdqtYjsk3LmiKFzPLsr PLKiTQFhKZskERUtWC6KJoLh JJY4GTa9IYmzYEo7TPn3QG5V YuYtLUQbOONzKMq0TOKmMZv2 CKkrYZ0EYXB7KsT0RBAoZpR0 TDL8HCRwAHBmUbHgDKAuSYBq QBovYRykdTHrQX8tjRupyyH8 XHBsYWluIEQuIERpYXBocmFn zG3rpGPeII0NOGKmxRGZBQK0 ZA8pNKAKVcbzcSWkLKVwrCjq UQqusX9tSF4PRXq8veDeJDHv RuLmUmYuYGl0GYNjQzLmj0je gELtAKazWUB6eHPsAVWnJHSh SJGpPM07VRxCVKJwpgUfXUmt bWVkaWNhbCByZWNvcmQgbnVt YmVyIGFuZCAiZGlhcGhyYWdt ZbXabbMeAQYaAOT9VOXeKcD1 FVIiTEFruOAsS0sqBCxgcFGp s4CzCeZgdwDlU9DlOORiugQy YZOfeexrBkfvys77hwJ4qSKv rCJkHnNzG39gueAgMHyteXzz IOZ4TOFgHXHzhVZxB8czXoLm VGhlcmUgaXMgYSBzbWFsbCBh qA20uyOzf1IrXPa1BIR5WVPs sxI0qXJnv2FtNgXmIM8kHBXq BQNiyDOioG9hhdJntoOgEYXg CXjeaYTtHUA5yX5wWBYdPA9c KI6hZKfyk5QpRLwnl7avpgMf WSBiJWsmRQ80eGDlZIVlMBYC TSYwPXSwyeLhaLh5XTFgUBT1 nY4patNnyzIpc4PzpXr4wCAk NOmqXVFvHFBfXrnspZ0cIZey sN7wUKSsKAezPDXmJ2SgnA2h BF9NMdfeTKInWYDGD5OzP51M ClxwbGFpblxlcGljTmVzdERv QiAlvJtkqG96FRNycJSaKSD7 LQ8zFUDuajuvURCdCPSsZCX2 JHbbeE39dNLbKOWdUDJbuDPn mU6AVTMtDNE4GOxukM43uFRs PO2GIOAkDFV7HJGsiZSzYUM4 LV7cyG6NgR== MICROSCOPIC h8jzrHLlZKRubSV7GvMyTNUn DESCRIPTION (test q2usl0JlfYGoqUFyKVmkhUOd code = 3371) ryCttd58uBX7jU89PY4rLPJt AtC1HOWoklH9Bzh4BUPdGUFa qNIhJ520b6yna4qqzgZcqPJ9 mJqtGSPqyuipPcR0DYtlVCKp zubcDSd1HPhvPLKzzOE5MVMx kGWnT8NsQFErJN3xhyf1FRC2 HHvyBLAkBlK9WDVhrDDrCKCi lNkvKAerj367SFL3QzMoOVNf ejYjtHftqQ2fLyAfMLISIKWv t3QkNOJaZDJmzaquRHJgYLQi cn0= SPECIAL STUDIES (test x5oewAXwDCJti0koFTTmeABf code = 3376) ZzEwMzNcZnRuYmpcdWMxIHtc kcRzXJwtg0NxZ3MrOeFnNLph bnNpXGRlZmxhbmcxMDMzXGZ0 wgJqPTEnAZscQLRvLOdrUq5z nAYwxCtnCjXvDYFwo1tjvtSV enimnDl1x5fhMBQjNcW0nBYd KNqqL1nzykNpfGCwZ1OgrXEo sZe4e7pwDxZjPkJ6uMDyRTxa O8wgmuYqaSFcMLTbPYw1aN45 LBCrbM1jpGNtTTvvmjFtCbP9 VRsmMTQfHoG4UNPquERkBVKl Y9ntXGJeVUdmZLZtFJklwUNw OCB0qVpcj6A0cRWlhTNedCyx HeUiGmIwRsJTe3UuPIt5iNgq F3RrZTOqZmO4aWXwMQFqGHsb ZQQuZHRkscM2dSznovLmy37j eHQyXGYwXGZzMjBcbGkwXHJp PWYFe8GedQlsHNV6fCt9tWcs OejkZYQ1Msj0VG0gxg86qyn9 bKzwOLKjfneqDiO3LBbyNXJo vwbuIZc6EYvpTQWzcBX9XHZi pSIvL5TjTTRtXM6dszj9KUN9 JJydEXGhScG8DFTxaFVnUPUe lNkaZPrjv974PJM0LePpKU3m P8Rtq9H8sB6rdJNnBFPwzESg HvHxQCRusm2zoETgTJasg1Hm NZZ3mjO7aCKilBIqIEPuUY05 Eopxs2GrNrdca3JgG99jrAD6 VLnvb1siID8rNjH1nwUiFXvg n6ybdO8oCbN7QWeiSD2kDH1l PFWugS7nxhlsRMRnQmJjeswu IVJqzCbqdiFlKl7yvJhrQJS3 CRcqS8xwkO5vTpI0NTgbE0pd kT0bEGj0ZIedbQF3MFFkdT6j DY7jflaco7hlMAxgSDgaWHYn pfF3jqA9UWLfpLNyA3GolI5z LZGjGO3yfmium9qxHUU4JOih WWWyDWY2TeTrGARtb1Tignn8 YoAbt1HxkQPdONbbO49py154 JZHafyPvR4prgAYhdtubjVRg hfibAOeztfM0ESNfPKAdPZsj XGYxXGZzMjJcbGFuZzEwMzNc aGljaFxmMVxkYmNoXGYxXGxv V8eoRuFnO0UxRZSxFwZxXImz LZxutJVeaZPckAF3zX2bVV7e KMTauDArU3OeXPIgzjKzkZUu WUP8tMUxoOUwLM7fTImfsLDr i2uzg6SzB2hbhXjssFM6XD2b SXHbDDQsPIsre3OdzC9tFvse bGFpblxmMVxmczIyXGxhbmcx RIAeZMflX4yfIjOdSDUqdWrh TOzca5LrTNUaJRWeNgywadAc MRp0mlQrMTQdoaqwRXSvdUqy lL6dIlDeQcJjHmutZE8xWPMm N6bvyWNvJTYcNRSoL8xiXaWn yH4hvQlfWEwnWpIjQlDhJeYS k444bs1vWRIlqYSessBQxKKd bQ4mQQeeWHzsRRbrqDTtYFgn i4snAMMpm9b1xFSfZMWmboTy x0jxBHgbpePxRKZwtHPpyYLl ZVIgy95uBHazbNmcuBtwUSOd w4MiqPkqj5AbZsFlSYxwf9Wo G49rrZBfzXHogVviABLitxUe HJPgu30le1vdTICaKhM5tMXv lEI0wLKzzCEra8XpuHidFMDc t3ybQDQtva1wqemibDVoe7Ya xV6gelalIOwpnZSzpiHrVBBs r6r7sRUgPRDzMNNhULtmtAz2 OJFzb248kz1yitL7oIQrHJJ3 YWlsYWJsZSBhcmUgZXZhbHVh dGVkXHBsYWluXGYxXGZzMjJc bGFuZzEwMzNcaGljaFxmMVxk FjRaUKPnOArlK8lhRvZwZ9Zd MJQgMmLtlIPbP2xseEVvCFPl YWluXGYxXGZzMjMercy Hospital [facility]onga – WatongaFuZzEw MzNcaGljaFxmMVxkYmNoXGYx LPezP1taStNxV4UaWHPeVnXy IFxwbGFpblxmMVxmczIyXGxh mcbyFEXxQZmhJ9jbXbQwZEYd yPfnPOven5HnZHMiWPApDinq itHeTWk3krXlTUYarxtysSDc blxmMVxmczIyXGxhbmcxMDMz IBqeA5nvBfWqQOQqoLjxEMmz l9UvFGClKMQzAxmrnpKaOUte aVOdy2ihf1MxX9jujKydgWT6 YXZkA3btnVHyhLO3QNH0fE1o UEckxkLnPUXpq9WqROBlCRJt SmO0gJ4eGFE5SeAYoBodWZIo YWluXGYxXGZzMjJcFuZzEw MzNcaGljaFxmMVxkYmNoXGYx KAdrQ7wxFiXoK8YaXRViUqWn aEucAEzzVRs2IhdhsQIxabbz MVxmczIyXGxhbmcxMDMzXGhp P6bsBvYqAJLxdPdgVNnyk1An XGYxXGNmMlxmczIyIHMgTWVk zJTbiLDXPM89SEAvEKGtcQge fG6koCHGTWVnsvH2c3C3VSlx XLBuBDa8CJdhzyHxIMLhmT4m SMPjYY3vIGv3jtFhBVOyw8Ad SQ6gVRTqtPNkHJD5TLCjs7Yd Q4Pko8NhVOKbPDRnbz4qoaPt SnYXmMOnBDImkw44ULXgPI1a C1gpHUDxVUIczqGyiHGmy4Mj YYVanBM0uOJeRO0BCqJAh66i IGFuZCBEcnVnIEFkbWluaXN0 koR5iJ0tDlILoXYtIoGQAOzp yxIuGPBokv2jhxLpHIDwHDTa o4PxvOWmuGHjitFgY3Had1Co EBDmfl94EJdbrFHbxg45PM6d W6Qvw7YxwQ6xUFftQAUgy8Mm kINjtVGjYYVgz7KbB2fsvmmp TVawtOHkeL0rNLFqRGc4SAEl x4KeOTIol7YkOfOwelSjGMUd AJQiCJFvmF21ROM0fQefoJlh wjLeHS2sRWFqurQaFQUyXSFd mO4yQTmqhfWdZRZpqmV7v2V5 GSsqTTNkujKxFwqtNMY3joIm czE7qQFiI2iwyjlmJFkxPHXy p7ZwsD3soFPHnRZqw6SliAHr lWDJeCNsOX9knvVrRZ9vEUF9 ODggKENMSUEtODgpIGFzIHF1 RYrzCjndBKX6zjGvGRRia4Tp JOlwF2aoE27jqBiweDm4iBXs kYonxHCuvAHdNQSatfB3i2O3 YFQqy8PqyfhhWFOqONmrOWXv XGZzMjJcbGFuZzEwMzNcaGlj fSykWxkpHmTsBPImCTtmU5nf VgChBoAiHcdrNVQ1nT== [facility] [id number] 16:41:12 Test Item Value Reference Range Interpretation Comments Case Report (test Surgical Pathology code = 104) Report Case: [id number] Authorizing Provider: Kiya Crane MD Collected: 03/03/2022 08:33 PM Ordering Location: [facility] Received: 03/04/2022 10:11 AM PERIOPERATIVE SERVICES Pathologist: Nina Kumar MD Specimens: A) - Nodule, RIGHT UPPER QUADRANT NODULE FOR PERMANENT B) - Peritoneum, LEFT UPPER QUADRANT PERITONEUM BIOPSY FOR PERMANENT C) - Pleural, Right, Right ParietalPleura Tissue D) - Diaphragm, Diaphragmatic rind ADDENDUM (test code = a3kkgVIpUMYxzYD4JlYkHGTz 3381) z5ftv3LumSHnfIEuGCphwNNn zbSmdb26eXJ7tY97BQ4qTQTf VhM1SEKrfzS7Mzm4UXYaJFIp iLZgD695u3buk0edtjElqIE6 rQbxSWLldlxaOyW7LTblTTUw sbutGFf0UVcaJBDutXT5YKVe yUIoR4YiPVAkHD7dpnm2TWM9 SAhqWIPdEsJ0EEFfnHMeFMDs bWggANfqy922GTC3EhUbOZSi xjUxiXscuL9qVzFyCXPGPCYI A65gNe2NUZCIXEHDEHFBUtZZ ZoJWSVFMCkViM4CMP0pQKSWL VEFJTlNccGFyXHBhcmRccGFy KRLbOGPsEEayu3TtmC9oLq4w IEdNUyBhbmQgQUZCIGFyZSBu NOhjqCy4BJWvp8EuGnPcH9Xn RZGxBNPvH9wmTVLmu2IjcOxs sp1ha9KvUQ9xx28iDEKzl1Bw N5YyjdBgjB9gU69qghQsGFEa v05jk5s6qOFosHo5fTAdrhXv mxTvi3Dak9boO1oeoYJeflYr x12xET4tSKAuQDXiic9= DIAGNOSIS (test code r5wdyBQdMLBvi6uoEKKfaZBn = 3220) ZzEwMzNcZnRuYmpcdWMxIHtc cnRmMVxlcGljOTYwMlxhbnNp KTAlxHVfR5VmshusFHimBR2m AZ6uvVvvhMItdAKtJBInMuBc v2hbg708uYNau4xhJVBAijfw sPa8yZsuU66rk8K4IqzfK03i qMIaANN2LEKgGXIehUHaUMIw YTE7KNJvpZTjB8wsKGTrOO8h rphrSSdsBGlnBROclYN4LXWp iLUjU8DxQPYpFRheTPSwmcj6 NvPgKk5xeRGtwBnrFTknGRYu EOSjTOrpYIKkYzRdIG7fYYTK SVRPTkVVTSwgUklHSFQgVVBQ FBEeHMHBIINDXtKpCSMEV9RZ WTpccGFyICAtICBORUdBVElW IIUMZ6HbWIKXFRmYFA9OLMwg LBQrvRDqWFcfKLKxDb2bAUEL SVRPTkVVTSwgTEVGVCBVUFBF UiBRVUFEUkFOVCwgQklPUFNZ PbquBKIjSD3lOE7WB0JAYXQI HAVJRyWXRWmFO23ETnTTFCLm clxwYXJkXHBhciBDLiBSSUdI VCBQQVJJRVRBTCBQTEVVUkEs HOEZUdMIFAafSRhDPNHGA0WE HLu4TNTvvkWkCCViMwUVCx7N BgDXSE4SDLROSmmaOGnGZWTU YIznYd9lJerVBapJTGQLN1QD RSBTRUVOXHBhciAgLSAgTkVH MLORGiGjSh5AOT1IJVlMBfTK C7llsBZvNLKrwhFhkIUtGHFs IERJQVBIUkFHTUFUSUMgUklO JQzyEeXLLMBMJT9KVnzdUJGi NC3cGSNBRODSDZMYMWMDVkiC SvvnEM1SSRDAFJNATKEVH1od LCXgDP4aHUEMXR7UPTXCJHHA TFlJTkcgTFVORyBQQVJFTkNI XC9GCYuPSSvoOqIBM1WROiGj W7uCAiuXJ8sdHZVyUI2wRR3M Y3NWMJHGIYBCLjRXBBuBT41Y ZjZGXBFbhi67BGO9KbMvc6Q6 DKA0QWDuFWLrj7heDRHlhDTu ZzEwMzNcZnRuYmpcdWMxXGRl GkGjv6epi141gCAke8utZDCs JhY6iYZtHLPurLEkO534OUQf ZQcyn2myv9AyKLVlvNPqk6G2 XLQWkyljgUr7nIbeS79rs8T7 XlsuS2sbDNAzDWQbI4RuOS6n LGTkKwi2VRU4NCZ7FOKuOJOl P3UfBL0hDPNcpDDkLAw1j2tc pLmlAHGvLBE9w7udCVnypdHj XA2fnp8wvSc7x1muptMlRPJo WHKtuEAHYNPuS7RyiPfiAv6j zMq2gKafUyewPJL1Cnx0OM0h eq03xdf9gYahEEDanyrxSiM6 MPhjLOMbqfheRKl7IOqfGSSf yGR3UZBojVOuX7JfUCZdNB9b tai9VYE2JVrtPCVnYqB6JGCy sAByJBAwlOsiVAehd105CNX2 JlAlXJ2sB5Pot2C7pW1aoUJh WBBlpOYbHcPzVSDpxf8jxOBb JMiub1JyTMC0snS7wDSluGNy FKXqOyR6BMogDP0ipe15TASb XHM4hi2qrNHvpJiyujRpoEUf DTxaO8UuBSPmv665YGQtO9Pk SQMbi8W7neKpWuViLFYysYV1 duQ0ZLVmKX3tcrzen9utBOvo RXlaCSWdkhR3btC2BNCmtORz C0IadP4qDWSyCP6ddjpjg0qg URW6YBonQBIzTSG2RxEuSDXe t7Gmzzd0SaWdf8TmtSIvGKlu Z65ya753URKvdmZiX6tevTYm vlgilBUzznicOVqudtC8UMPk IMvowrdaKUJwJMgfS8vjKsQj ICAimUjfRRixq5UnYCPdOZLv SxEdzIQuDRPuSxr0XJRfsDVh WWRfFbXzL7haeufkItXEFPCh y6qpI6tpbGWKxUIoX0QvLYqu qjVlEFatDAbnYmPtGTz1HN30 MbYyCZLiwi15 COMMENT (test code = d2pecJAyWKFrlPL6RmNhDKZf 0034) l4ckw4JmzQObqVWzKUkzpJTu zgHgrw67pOI7mJ04NY5nXLWa WgE2NQJkntK1Rpe9VMQhJJLz lVCqQ467f1wui6pqtgAijTB4 zFxpEQQxagqiLbZ4NAslOIBn hmvlEIc4OEmaIUWpfNL8NNEy cKEqZ9ZpKVBdRT9icka3MWD0 XInjNHOyJeS7CWCclLGcAISs vBesEGgol259BQV5HlCzJGEt gpFyxConyJ5mYmDtLPYGOvPq K0EyD4msdUBnsCQdyvGlHSOa GGOchfHoiwhfKB0pAUvnfZoc MoGkwlMkt4F0WMHbfZ7fYG6p IKUgYT2jbH9pLVNjkhibXQSq XHBhcn0= CPT Code(s) (test x8unjASoTDDpvEV1IdXgFRIa code = 3357) p4ivh3OdjSRfuQCuMZdmwMYa qzXxbs52xPN0yC29HP3wXLNn BlL8XWHlclK6Drp1GLSxACTy eGDjM021g5wle5sxmjBoxSX6 jHumCYZauvwvLqD1ZHhnNDZt kvbgBEr7RUijHRSkzTD2NMIq rECuP0DwIQRcUK1xkyy7YVF8 SVytUTVrWkS3MTBllTZtQGUy qKqaABfcy500XQZ3FtYyHOEd fwTxoQoacE5fZwKfLEE7KBHd MFc9NJOikgL4TTCbUinoSTMb cn0= CLINICAL HISTORY k5wotOWhBRYrfVT2FrVdUHKk (test code = 3356) q9ope1UlgVZhyMKrHNumyEFe asJitd66lAF5bF70JJ5mAEWn RcY9WLIacaK5Mjd6UGHcTFSh hSPiG223g8ohg6atpuPfjAW3 wNvsIDEzjqdxVqF2FTjfRTQx vbipZWp4UHjgLEOxaSD8RXKl gHNzI6GyIOEfWD0qsom2EDS3 LRwuRVSyLjC9UIValTFfCFGf mDkgPHmhp513AGA4VcFsNJZq vuVrxTgprR6rBzJnALDOmTH2 XF6yZRMgvo2= GROSS DESCRIPTION q1ozrGHgNPQhxLTGWRZeN2ak (test code = tgLmPORytAYyN1KdcyasYXdt [id number]) EH0dWY1zgYqnvDTiySUtLI3O XGRlZmYxXHBhcGVydzEyMjQw XNOpdNPltEB4QHXdZH4qvrqx YLgeHEhxMMFetvO1VZKcrZNg A8WrNUVjDK0cgjmnUWU4NSju cA1kicYNLyfdXr4agAPzkQmg ZjFcZmNoYXJzZXQwXGZuaWwg JKDvIGv1dD3ELbpiBUQ0OQAU AsrpLFJvNF5Qy6lwPSRdtIBh ODC6XFslsABcZMGcCUYyHLp9 HVOlPIlwaXEqXE9swVeyAsdr eGorq7DroOTjSXnySIYiZIEn WIlwMVQrIN5XAlUxASC4WLt5 XXmqXOg3MWh3KE2ZZwYkOOIo XXQwMFP0TLTbVRq1GZsqNR3Q UYF0VjZ6CIN4UAD7ASA8NCFx XHQgMiBcXGYgQXJpYWwgXFxm eEYaOO6nmPsrrCEzolSKDjLJ f2W4xXWxNCPucwINIydumHyb TmVzdERvYzEgDQpcbHRycGFy XGxpbjBccmluMCANClxsdHJj gGwfxvOnDFXjB4KcviAzXWXq LQWjJWtsQqOfHZPdq8g1yVP9 hXGzsLW0sAUekDayYfZeNL4v dCHeMZ8aQLbpJYcskwRkf0Tm HY52pJZjndMantRpQz6uNAYf ZSAjMSIgaXMgYSAxLjEgeCAw EgvjqIKvItHkZ48sxDFuoO03 VGRgcwukCAEjoL0cWAN2oTXy jTYeKaUzQ87fxmIxa2XbWmBa RLRvHwlqA9isp7QcdjhiSzAs DG6aqxBgZZO0tJC6XAynTECo yAGaQ2ErUO8dMB9aZMgag7Uc IUavu0zeaqJvNKBhMCaiUL33 iRKaNUJcFICZgKMph5MgD3fc UG6lfRAcTR45tRRjfBfvb5Py fHi4wETsQDhfPNRwXx2UHZDo KKywWESvkUGIUTB0OG9pNKzo cTGwensnRADjC6MoE5SehqWp rECkURKcdtCgw4ohKHA9AOJu mNYirLWuAfRgNolfYJR5PCj8 ELtbHRVuD8UrB7NjNDukHYN4 MTAwMiBcXGRiICBPVlIgIiA1 LAn6RBa1OcS1NFk7DRRMRqBy KqKbXlJvDpCmMGNhAGo6YWl4 JPsSRnD8USR8MZPiFfTuEMEr OUUtKXs2RWPzSCsqAFIndIZc NCnaFdcvWEphD40tYgKwAcrk fZOottDSRpKQOLVrdY4fRZQe RbemVWCxUOxvGAUaT70tn0FJ b2KnBX8YDOe4fdDzfwlhpW2w UTGzhqAhFWazyUYsL7hoHxQg MCBSZWNlaXZlZCBmcmVzaCBs YWJlbGVkIHdpdGggdGhlIHBh yRvfbzUxG1E3itBdMB5gFRDm DIZvK0JkXYPlK50rCXXrhX8z ZDBbCA2uOQIzEUN7PNRusAAf UXE2OGMtXW89MYPcrbw2y44y oB1xRFbiRTMfIO71EYjaHR72 MGtyQN1eIVKqWZmvzeTedPco jnD6MQyeg3xga0mqaHNxQcuo wn9uYNkxv2HeSMKge9K4GVFm ejMvnYOowZS1fXFwk5VhQ3eb ZQ3fdILrjFScRUJib6QrgMJm IGFuZCBlbnRpcmVseSBzdWJt kXE5TCZrrI1kMfFpGByihCgp aJ1rQMRwW99th2MVo2DsKPGe FIjyr7mzqUrft8AbjBKnUCsg ITOpsHQdLKvyzU0nQlWwm3qj hEi7NGypckS3NPQpqe6URzze BahhkTele0HlkARoNQbwGCXz LZUoRIhaVKOjXT6WFfKxVBM8 GBv3TEgjIWs0CKw0RB7PQxLv GOSiOYMtEIDqSZOcXSf2NZji QL5XJQI3PgZ2EZSzZLW6YST9 MSBcXHQgMiBcXGYgQXJpYWwg QIqpkAIhFG0nqHcxqgA2MZBs YWluIEMuIFBsZXVyYWwsIFJp T5j3ZekfVRZjSNkgYLTgE34m i4BBr8QjEO0AMMc8uzXvkupk tY2jUOOvcxShSBnmdUDsC6vw ZnMyMCBSZWNlaXZlZCBmcmVz aCBsYWJlbGVkIHdpdGggdGhl AMKysWbokdYaI2V4doJiTW3z WDEoARYyH7PkRSMtN09sTJNe kM9bHSScEH2hTCPgsSX4mlDd NYKuO5x2LvQclqYiNFVzRWP5 HIUvWyO5YLXuDKNexLMwZ6pf HYrcgAYuq2NjYrTbzgLaQ3Bq EKIjzHzfG6NbTB5sYSsesRqa zm5fmlG2ZOZbBdDqxPkvm6Fe LiAgVGhlIHNwZWNpbWVuIGlz IEPbeqhpnGq5GLCeG7Ent07f UOJaowSyhn2bG4Dba8PrwRQw hR3ellWozjGwzNYxaqIeXaqg PW3mDESoaKFbc3WgqPK0xWNn MIMnL7Jor52lYHFbNEBsbSJi uVU4JFZzeK2zMeDsEuRrANpw mQwhvJ5zRGBpU46in8RGj7Tg AXHpNHhhg0xllJmgs5BtaSQu WZlxRIRpkDSqFMucqY1xWcDe v0ikhMj1TGdvwiL9SCHzdh1K MewrKvrshZtmu4FwlSOsOHlk XBWnRHSjNOwxFSWbZS9MWmSl MXV7MLp5NGreMOj5IYs0ER1O TzHkILVaVVFoWPa8CBZzUGd4 EAxyXX7QZFR9QpR4DVJdZzN9 JQF1WHYsUDFcEySqZSPvTQNg PZvxRSrhdGRsIG5cmImlfzD6 XHBsYWluIEQuIERpYXBocmFn uH2smUNcKI8OYTYigDFDUEU6 JS3dAAWOCpmjfTBaNHYbuTdl VBdcwT9sDP4TAKu1taDwHHVx VuEhHeOeBSd2DSCmVpZjj0tt bJJkTYxcPSS0qRLqAVRjEPWi FHFhTH00CJpCGMSxtkByFFno bWVkaWNhbCByZWNvcmQgbnVt YmVyIGFuZCAiZGlhcGhyYWdt RiIhqmAtDLAuWRZ4UISgPjJ5 XEZtGGTbbUAtZ0dhEMazdTRc o8AsNeBrkhDvY8ViWYMxlkYr VAPuaqabBmglpf51wcL2aEJb lYTqWlMfV22qofKoBQnvxRev QCO5ZKHvPDIxpHToP2biKwUh VGhlcmUgaXMgYSBzbWFsbCBh lE50fbOqy7MwIPq6KRC6DHAq rxB4rKYhn4TrXeQzRE9oHZSj FQSdiNBxtJ0okwQkxoHkOAEr QUwdfCNqGSI9zB1uFWFhYG9b OJ8hHFspc0HvUHulp1mavgLs LTVpZXfwTC51nOWxLDTtIZHE KMZpNVVwkoCyxFt8KTRyHRO8 oL8gkiFitsYfr1ZltVf9jPRj MZahYILdQCWdSwlmuX3uHWny dD5aZICgCGajGGFnG5NncU9k WX3CGgacLHJjKVPLN2LdG25W ClxwbGFpblxlcGljTmVzdERv XpQqkDnimO00NAVxjWFcCPZ2 CZ9mEOBkvpwfGMGvKCFaYFK1 YTmjhR04eUJmTDWzNAXwjBIz hW1REZHsACK1UMfibE01sHDn PT3AEHYqPPH6NZTolFBjXFB7 IG5ytN4MgY== MICROSCOPIC m5gwvEVzBMUvaHJ8IrOrWPAp DESCRIPTION (test n5aal3RdaUNwyOSwAPeajBPb code = 5616) vrPxor97kZC1oD12LL1xGEOk EcS5FUIdzgJ9Phd4EHOsCAFj iDMrH807h0imy9sopgKtfVG5 pWsuEHFxkqeqMdZ6OUnfCAMo nhebKJm6QPbtVKRrpZN1QWLl iQJxJ7AwBQTnRH3ihcz8EKZ4 RGwaSKJkAmV7UINeiSQjESNa yBxyXXxsj299CKJ3NwJzXDWo dpOclVwwoM9lZoTzVCJWBQMa a4MrZOMcHYIoojxaNIKuVSQf cn0= SPECIAL STUDIES (test q9ggaKHzTOAzt0klITEwvSYq code = 9508) ZzEwMzNcZnRuYmpcdWMxIHtc dhBtIColw1NcQ7BnWfJvODta bnNpXGRlZmxhbmcxMDMzXGZ0 qxSlMWXhRFyxQHJxJJzwKa8s hQTclEvuKhVeBZWkb7hdgfFE ibzkpLu3c7ouGEPbFdN2aOGj VWtpS3vqrjTgxNVxP7SofNMh mKv1y1xrIbTiGdN5gCWwKRxi P6zpdgYlaUBtFNMxEQb5rP71 UMYvqX3nlIXvBIisqaXpEdF9 FBcwCEZeAeV5WYTrgOWjWRSx B5agWDHxEGehFGAiFBemhSId GQH5bVxxr7T9hYPxhGVefJcm CtQjMpEzYfNCo5BpDJd6aRok Y2DcYMBmScH4nHMtJQMrLJfm KGYrDOFpeyM9bKsctbApr54t eHQyXGYwXGZzMjBcbGkwXHJp RFHUp4OevGufTSB3kXm0gWen WfwhOMD0Nmq8SV3ypd27ikb6 mFpzHOSvlpquCeP8NTraGKEf sqtbNKv4WJwkVPIaySF3MFGi kETjI9ZrODKrIE1eckn2NBC0 ELjtGHOzIrP6OKXfxYVaVHOk jXucGPnnn965VFP5MdOoIE9u D3Snh6J8eL6gbEGjSLSysJBo NqTpONAewx2lkQKbQWevf8Mk ZRF7hlR2fVQpqMHhRGWzQV26 Hdvxs9OlJtfgl2MvN66tiKZ1 SHbts9fzQD9bOxR4qkUxDLuq y0azoQ4pTzR9YVpzUC6iZQ5j MNRvxG9cecojYPQeAhCceaow NJSvaXoiauOzNp9lvYyvIBD4 EVusR2rssE4xZxK7LRyqA1vy yF1wPKx8IOojcZL9JXVxdH0k UI6nwworo7dzUHkjAXdeAFNy eoW4lmX5HDXdnOQoX8MegU2a AHWuTK5pojarm9gfQZI2WAiu QIBnXNL8LaFjDDVtv9Dflmn3 PiVhx5EamHPzAZwmW23cg007 VVUeclUuS6kwaCGkazeccODv gpyxHJuxnvF0QYVwGOFfUUwy XGYxXGZzMjJcbGFuZzEwMzNc aGljaFxmMVxkYmNoXGYxXGxv H7rrWaVlZ2MfEMHfZgDiMKul NBmuwPIesFXhaOZ3iW3fHC9m MUIsjWFtO6FmULCspeFgzZYg EOG6yXEfnEOwBW3tDSfxfLVo b1kqp9DxL8kquPknmGR3HB7f IVNkHGGpVSgvu1OeaA1xJpjc bGFpblxmMVxmczIyXGxhbmcx PGFeRPuaO1djLoNrLLTirFwj IBzyo8VzPJCsZGUrSisvruOt WIi1zjLoEHFsqhadOWRkuIir eZ5eSsQdZjCaBtylTH9fFDAl A1ekxUJkKNBwDJZnH1lqLcMh bB5ilGomPErrKjHmHzFiNnDM s146wp9mFIZofFWimdPVoJWd tR4jWVjwSLxdZAyctWMvGOmn c8jzJKHut7t6zDWyOEZiniZz q1ekRSrittAePZVedOBoiNWo HXWlr68kTBayuEemgGeiVVNd r3MmcMweh6BkNqOxUJcak4Vj Y22mhGEkrREnwSwvDZOignEw RIWtl08ji4ozPQEkHlA3mSSg kLC9iAHbwZZlx8SuoQbnCQAg s3yrUVIivn9rkbauaPCod6Ta yY6mpradRFxfhRAhvsHhUJQs r2s5iMJgOVDwJCEwQWwwrHt9 FQHtp092xc3otsM8lHIiVUM2 YWlsYWJsZSBhcmUgZXZhbHVh dGVkXHBsYWluXGYxXGZzMjJc bGFuZzEwMzNcaGljaFxmMVxk DwRqKRBxSSggR4icYxXbC4Bv OJYgCsWmcMUuG2voqVWnLABi YWluXGYxXGZzMjJcbGFuZzEw MzNcaGljaFxmMVxkYmNoXGYx KGfpZ6pbPmZpV3GgPCAsUeKc IFxwbGFpblxmMVxmczIyXGxh mgnxXUFpDCndT8gxRmJrKXNj iIqqBSjxb1EdKTRiVEPhFahe meMvCGe6zyKoCZCqeilgvYMo blxmMVxmczIyXGxhbmcxMDMz PRqyB7mqGpLmPFOgaMzhTDre m1BfNZJbSPTsWaofasBcJVuw nLQnv9zxn9QwH9fmvCgjlIU5 YKHzT1hpnBLqaEC3AHJ0yV1b GAhxweNqGRUpb9EoLOHaGBGw PvZ0oX0uBER1VlOJdRdfEDEm YWluXGYxXGZzMjJcbGFuZzEw MzNcaGljaFxmMVxkYmNoXGYx MHdjD8tqRsEvB4WgHUEpHeQr gJbiXLooUDi3EhqufVPjzveo MVxmczIyXGxhbmcxMDMzXGhp U4yzAqVcTFByiGgdUPyll0Bj XGYxXGNmMlxmczIyIHMgTWVk uXPxoLFVWN98FZGqYHGquGal wD0miXGINPHuyaC1g4Z9VOxq FFDsKHp8KJcdsxYoQEGscK7n TXFmYO7uBDv5csNyOPNqk0Nt FH7vMAEpnHMsBWR6BEJxl0Dx C1Jna0XxLXGhVDBrgv7cnbWd KlFJvMHuAHXbxz78XJAjAP7w J9bySXWtWOFlxyYgmBHtj7Xl CIZdnWQ2pFVgTI1XVvCFi76n IGFuZCBEcnVnIEFkbWluaXN0 ahG0lG6rLeDXdOYfNnCJBObs ydHfDGYpwk3yhzOySWQmLVEn s4TzzSTmsXNpliYxN2Syz2Ue ZEOsqg97DRopiCYohc62NV1v A3Kdd9FqoB5uIBydDOOju1Bu vSQjdGZtQGBqx8QgP5jxlrfc MWrkyMIcpJ8mMYSvLOs1LSSc q8FtKPJsw5LfGcFgobQnJHCf PLLaEUQvuI74KXO7uJwplSem qcOkZE9xCTAboqTwKBDnUQYw kH7aLHfuclZcQVHcrxP9c4W4 RCryJBFpdiDzRezsTAG6fzFi unC5yYDfM1qmbtouOCneVKZa q9IwfN0fjTPPuQGvl8XimMCz wBUUiBQvTM8aijZxFJ7rYNE1 ODggKENMSUEtODgpIGFzIHF1 PDfaQpxqYOQ0wfZuBCJul2Jp HEyyR4vrJ27alUdpeZx4kNLe nLkohGIonGEgZAAztpJ8s2S5 GGFga9RqgaqcHURmWMmpGMVo XGZzMjJcbGFuZzEwMzNcaGlj gKmzTqntDoHyVBPlUApxQ4fz TcUyDpYmIrkgGHY3kU== [facility] [id number] 16:41:12Surgical Pathology Report Case: [id number] Authorizing Provider: Kiya Crane MD Collected: 03/03/2022 08:33 PM Ordering Location: [facility] Received: 03/04/2022 10:11 AM [facility] Pathologist: Nina Kumar MD Specimens: A) - Nodule, RIGHT UPPER QUADRANT NODULE FOR PERMANENT B) - Peritoneum, LEFT UPPER QUADRANT PERITONEUM BIOPSY FOR PERMANENT C) - Pleural, Right, Right ParietalPleura Tissue D) - Diaphragm, Diaphragmatic rind REASON FOR ADDENDUM: TO REPORT SPECIAL STAINSSpecial stain for GMS and AFB are negative for fungal and acid-fast micro-organisms respectively. Correlation with cultures and serology is recommended.Addendum electronically signed by MD Kaylee on 03/09/2022 at 4:41 PMA. PERITONEUM, RIGHT UPPER QUADRANT, BIOPSY: - NEGATIVE FOR MALIGNANCYB. PERITONEUM, LEFT UPPER QUADRANT, BIOPSY: - NEGATIVE FOR MALIGNANCYC. RIGHT PARIETAL PLEURA,PARTIAL PLEURECTOMY: - NECROINFLAMMATORY EXUDATE, NO VIABLE TISSUE SEEN - NEGATIVE FOR MALIGNANCYD. DIAPHRAGMATIC RIND, RESECTION: - ACUTE AND ORGANIZING PLEURITIS - SCANT UNDERLYING LUNG PARENCHYMA WITH REACTIVE CHANGES - NEGATIVE FOR MALIGNANCY Signing Pathologist Direct Phone Line: [phone] signed by Nina Kumar MD on 03/09/2022 at 8:18 [facility]. Special stains are pending and will be reported in an addendum.[id number]. Nodule.Received fresh labeled with the patie nt's name, medical record number and "nodule #1" [...] record number and "pleura, right" is a 4.8x 2.7 x 1.5 cm aggregate of 2 irregular pieces of yellow-churchill soft tissue. The specimen is serially s ectioned and no gross lesions are identified. [employer]arch[employer] sections are submitted in C1-C3.D. Diaphragm.Received fresh labeled with the patient's name, medical record number and "diaphragm" is a 6.0 x 2.2 x 1.0 cm aggregate of 3 irregular red-pink fibrous tissue fragments with attached muscle. Thereis a small amount of exudate on the surface. The specimen is serially sectioned and no gross lesionsare identified. Core Microarchitect sections are submitted in D1- D3.VERNA Purdy PA ([facility])cmPerformed.The interpretation of this case included the use of immunohistochemistry or special stains.Control Slides Examined: In-house known positive controls were evaluated along with the test tissue. These control slides run alongside of the patients sample show appropriate staining. Internal positive and negative controls when available are evaluated Immunohistochemistry technical testing was performed at [facility], Pathology Laboratory where it was developed and [...] to perform high complexity clinical laboratory testing.CRYPTOCOCCAL [id number] 14:02:50 Test Item Value Reference Range Interpretation Comments CRYPTOCOCCAL ANTIGEN, SERUM Negative Negative, Interference (BEAKER) (test code = 1828) RAD, CHEST, 1 VIEW, NON [id number] 13:30:00Reason for exam:->[facility] : 1945 Sex: FFINAL REPORT [...] Signed: Grace Thomas MDReport Verified Date/Time: 03/09/2022 13:30:28 Reading Location: [address] Reading Room POC-Glucose [id number] 12:05:23 Test Item Value Reference Range Interpretation Comments POC-Glucose Meter (test 101 mg/dL 70-110 : TE STED AT [facility] code = 1538) [address] [place] [address], 770 30: Metal Riveting Machine Operator/Techni krupa ID = [id number] for EDMUNDO, HIWITHA Lab Interpretation (test Normal code = 73003-1) [facility]-Glucose [id number] 12:05:23 Test Item Value Reference Range Interpretation Comments POC-Glucose Meter (test 101 mg/dL 70-110 : TE STED AT [facility] code = 1538) [address] [place] [address], 770 30: Metal Riveting Machine Operator/Techni krupa ID = [id number] for EDMUNDO, HIWITHA Lab Interpretation (test Normal code = 62886-1) [facility]-Glucose [id number] 12:05:23 Test Item Value Reference Range Interpretation Comments POC-Glucose Meter (test 101 mg/dL 70-110 : TE STED AT [facility] code = 1538) [address] [place] [address], 770 30: Metal Riveting Machine Operator/Techni krupa ID = [id number] for EDMUNDO, HIWITHA Lab Interpretation (test Normal code = 64901-3) [facility]-Glucose [id number] 12:05:23 Test Item Value Reference Range Interpretation Comments POC-Glucose Meter (test 101 mg/dL 70-110 : TE STED AT [facility] code = 1538) [address] [place] [address], 770 30: Metal Riveting Machine Operator/Techni krupa ID = [id number] for EDMUNDO, HIWITHA Lab Interpretation (test Normal code = 99851-3) [facility]-Glucose [id number] 12:05:23 Test Item Value Reference Range Interpretation Comments POC-Glucose Meter (test 101 mg/dL 70-110 : TE STED AT [facility] code = 1538) [address] [place] [address], 770 30: Metal Riveting Machine Operator/Techni krupa ID = [id number] for EDMUNDO, HIWITHA Lab Interpretation (test Normal code = 28585-7) [facility]-GLUCOSE [id number] 12:05:23 Test Item Value Reference Range Interpretation Comments POC-GLUCOSE METER 101 mg/dL 70-110 : TESTED A T [facility] 6720 (BEAKER) (test code = [place], 1538) [address]: Metal Riveting Machine Operator/Techni krupa ID = [id number] for RODRIGO MACARIO ANAEROBIC [id number] 10:55:31 Test Item Value Reference Range Interpretation Comments CULTURE (BEAKER) (test No anaerobes isolated code = 1095) RAD, CHEST, 1 VIEW, NON [id number] 07:51:00Reason for exam:->s/p thoracotomyShould this be performed at the bedside?->Yes [facility] 1945 Sex: FFINAL [...] changes. Additional findings: None Signed: Grace Thomas MDRaddyort Verified Date/Time: 03/09/2022 07:51:59 Reading Location: [address] Reading Room POCT-GLUCOSE [id number] 07:18:53 Test Item Value Reference Range Interpretation Comments POC-GLUCOSE METER 110 mg/dL 70-110 : TESTED A T [facility] 6720 (BEAKER) (test code = [place], 1538) [address]: Metal Riveting Machine Operator/Techni krupa ID = [id number] for HU NTER, HIWITHA [id number] 06:30:05 Test Item Value Reference Range Interpretation Comments MAGNESIUM (BEAKER) (test code = 1.6 mg/dL 1.6-2.6 627) Metal Riveting Machine Operator ID - DEEPA [id number] 06:30:05 Test Item Value Reference Range Interpretation Comments PHOSPHORUS (BEAKER) (test code = 2.4 mg/dL 2.3-4.7 604) Metal Riveting Machine Operator ID - DEEPA LBASIC METABOLIC [id number] 06:30:04 Test Item Value Reference Range Interpretation [...] not appl icable for dialysis patien ts Metal Riveting Machine Operator ID - PIAYA LCBC W/PLT COUNT & AUTO [id number] 05:55:34 Test Item Value Reference Range Interpretation [...] PERCENT (BEAKER) (test code = 2801) POCT-GLUCOSE [id number] 21:44:43 Test Item Value Reference Range Interpretation Comments POC-GLUCOSE METER 107 mg/dL 70-110 : TESTED A T [facility] 6720 (BEAKER) (test code = [facility], 1538) [address]: Metal Riveting Machine Operator/Techni krupa ID = [id number] for DONNA WELSH POCT-GLUCOSE [id number] 16:47:36 Test Item Value Reference Range Interpretation Comments POC-GLUCOSE METER 89 mg/dL 70-110 : TESTED A T [facility] 6720 ([facility]) (test code = [facility], 1538) [address]81: Metal Riveting Machine Operator/Techni krupa ID = [id number] for WILL IAMS, TYNEKA POCT-GLUCOSE [id number] 11:21:31 Test Item Value Reference Range Interpretation Comments POC-GLUCOSE METER 98 mg/dL 70-110 : TESTED A T [facility] 6720 ([facility]) (test code = [facility], 1538) 19797: Metal Riveting Machine Operator/Techni krupa ID = [id number] for WILL IAMS, TYNEKA CT, BRAIN, WITHOUT [id number] 10:19:00Reason for Exam (Free Text) - Addiitonal information for Radiologist->unwitnessed fall with headstrike, prior aquired coagulopathy, evaluate for intracranial hemorrhage [facility] : 1945 Sex: FFINAL [...] 03/08/2022 10:19:32 RAD, CHEST, 1 VIEW, NON [id number] 07:05:00Reason for exam:->s/p thoracotomyShould this be performed at the bedside?->Yes [facility] 1945 Sex: FFINAL REPORT [...] surgical changes. Additional findings: None Signed: Grace Thomaseport Verified Date/Time: 03/08/2022 07:05:09 [id number] 04:51:57 Test Item Value Reference Range Interpretation Comments MAGNESIUM (BEAKER) (test code = 1.7 mg/dL 1.6-2.6 627) Metal Riveting Machine Operator ID - ANGELES [id number] 04:51:57 Test Item Value Reference Range Interpretation Comments PHOSPHORUS (BEAKER) (test code = 2.4 mg/dL 2.3-4.7 604) Metal Riveting Machine Operator ID - ANGELES MBASIC METABOLIC [id number] 04:51:56 Test Item Value Reference Range Interpretation [...] not appl icable for dialysis patien ts Metal Riveting Machine Operator ID - ANGELES MCBC W/PLT COUNT & AUTO [id number] 04:32:01 Test Item Value Reference Range Interpretation [...] PERCENT (BEAKER) (test code = 2801) Prepare [id number] 23:54:00 Test Item Value Reference Range Interpretation Comments CROSSMATCH (test code = 2264) COMPATIBLE Unit ABO (test code = B Pos [id number]) UNIT NUMBER (test code = [id number] 934-0) Status (test code = 1019964) TX_TIMEINCHART Blood Bank Product (test code RED BLOOD CELLS = 2263) PRODUCT CODE (test code = X0923E72 933-2) [facility] [id number] 23:54:00 Test Item Value Reference Range Interpretation Comments CROSSMATCH (test code = 2264) COMPATIBLE Unit ABO (test code = B Pos [id number]) UNIT NUMBER (test code = [id number] 934-0) Status (test code = 3673318) TX_TIMEINCHART Blood Bank Product (test code RED BLOOD CELLS = 2263) PRODUCT CODE (test code = S5488B67 933-2) [facility] [id number] 23:54:00 Test Item Value Reference Range Interpretation Comments CROSSMATCH (test code = 2264) COMPATIBLE Unit ABO (test code = B Pos 5490837) UNIT NUMBER (test code = [id number] 934-0) Status (test code = 0408180) TX_TIMEINCHART Blood Bank Product (test code RED BLOOD CELLS = 2263) PRODUCT CODE (test code = X2038K31 933-2) [facility] [id number] 23:54:00 Test Item Value Reference Range Interpretation Comments CROSSMATCH (test code = 2264) COMPATIBLE Unit ABO (test code = B Pos 6972150) UNIT NUMBER (test code = [id number] 934-0) Status (test code = 2464544) TX_TIMEINCHART Blood Bank Product (test code RED BLOOD CELLS = 2263) PRODUCT CODE (test code = A0919F22 933-2) [facility] [id number] 23:54:00 Test Item Value Reference Range Interpretation Comments CROSSMATCH (test code = 2264) COMPATIBLE Unit ABO (test code = B Pos 9743907) UNIT NUMBER (test code = [id number] 934-0) Status (test code = 0929581) TX_TIMEINCHART Blood Bank Product (test code RED BLOOD CELLS = 2263) PRODUCT CODE (test code = T2657C72 933-2) [facility], 1 VIEW, NON [id number] 08:07:00Reason for exam:->s/p thoracotomyShould this be performed at the bedside?->Yes [facility] 1945 Sex: FFINAL REPORT [...] changes. Additional findings: None. Signed: Grace Thomas MDReport Verified Date/Time: 03/07/2022 08:07:17 PHOSPHORUS 2022-03-07 06:43:00 Test Item Value Reference Range Interpretation Comments PHOSPHORUS (BEAKER) (test code = 3.0 mg/dL 2.3-4.7 604) Metal Riveting Machine Operator ID - MARCOBASIC METABOLIC [id number] 06:42:59 Test Item Value Reference Range Interpretation [...] not appl icable for dialysis patien ts Metal Riveting Machine Operator ID - [id number] 06:42:59 Test Item Value Reference Range Interpretation Comments MAGNESIUM (BEAKER) (test code = 2.0 mg/dL 1.6-2.6 627) Metal Riveting Machine Operator ID - MARCOCBC W/PLT COUNT & AUTO [id number] 06:23:09 Test Item Value Reference Range Interpretation [...] PERCENT (BEAKER) (test code = 2801) POCT-GLUCOSE [id number] 00:14:22 Test Item Value Reference Range Interpretation Comments POC-GLUCOSE METER 107 mg/dL 70-110 : TESTED A T [facility] 6720 (BEAKER) (test code = [place], 1538) [address]: Metal Riveting Machine Operator/Techni krupa ID = [id number] for MOR MACIAS MS CBC (HEMOGRAM ONLY)2022-03-06 [...] = 413) Surgically obtained culture + gram [id number] 12:51:44 Test Item Value Reference Range Interpretation Comments Result (test code = 6463-4) No growth Gram Stain Result (test No organisms seen code = 1123) TR (test code = TR) [facility] [id number] 12:51:44 Test Item Value Reference Range Interpretation Comments Result (test code = 6463-4) No growth Gram Stain Result (test No organisms seen code = 1123) RT (test code = TR) [facility] + gram [id number] 12:51:44 Test Item Value Reference Range Interpretation Comments Result (test code = 6463-4) No growth Gram Stain Result (test No organisms seen code = 1123) TR (test code = TR) [facility] + gram [id number] 12:51:44 Test Item Value Reference Range Interpretation Comments Result (test code = 6463-4) No growth Gram Stain Result (test No organisms seen code = 1123) TR (test code = TR) [facility] + gram [id number] 12:51:44 Test Item Value Reference Range Interpretation Comments Result (test code = 6463-4) No growth Gram Stain Result (test No organisms seen code = 1123) TR (test code = TR) [facility] + GRAM [id number] 12:51:44 Test Item Value Reference Range Interpretation Comments CULTURE (BEAKER) (test code No growth = 1095) GRAM STAIN RESULT (BEAKER) 1+ WBCs (test code = 1123) GRAM STAIN RESULT (BEAKER) No organisms seen (test code = 705279) Body Fluid Culture + Gram [id number] 12:51:15 Test Item Value Reference Range Interpretation Comments Result (test code = 6463-4) No growth Gram Stain Result (test No organisms seen code = 1123) TR (test code = TR) [facility] + Gram [id number] 12:51:15 Test Item Value Reference Range Interpretation Comments Result (test code = 6463-4) No growth Gram Stain Result (test No organisms seen code = 1123) TR (test code = TR) [facility] Center[facility] + Gram [id number] 12:51:15 Test Item Value Reference Range Interpretation Comments Result (test code = 6463-4) No growth Gram Stain Result (test No organisms seen code = 1123) TR (test code = TR) [facility] Center[facility] + Gram [id number] 12:51:15 Test Item Value Reference Range Interpretation Comments Result (test code = 6463-4) No growth Gram Stain Result (test No organisms seen code = 1123) TR (test code = TR) [facility] Center[facility] + Gram [id number] 12:51:15 Test Item Value Reference Range Interpretation Comments Result (test code = 6463-4) No growth Gram Stain Result (test No organisms seen code = 1123) TR (test code = TR) [facility] Center[facility] FLUID CULT[facility] + GRAM [id number] 12:51:15 Test Item Value Reference Range Interpretation Comments CULTURE (BEAKER) (test code No growth = 1095) GRAM STAIN RESULT (BEAKER) 3+ WBCs (test code = 1123) GRAM STAIN RESULT (BEAKER) No organisms seen (test code = 086469) SURGICALLY OBTAINED CULTURE + GRAM [id number] 12:49:49 Test Item Value Reference Range Interpretation Comments CULTURE (BEAKER) (test code No growth = 1095) GRAM STAIN RESULT (BEAKER) <1+ WBCs (test code = 1123) GRAM STAIN RESULT (BEAKER) No organisms seen (test code = 769532) SURGICALLY OBTAINED CULTURE + GRAM [id number] 12:49:10 Test Item Value Reference Range Interpretation Comments CULTURE (BEAKER) (test code No growth = 1095) GRAM STAIN RESULT (BEAKER) 2+ WBCs (test code = 1123) GRAM STAIN RESULT (BEAKER) No organisms seen (test code = 753610) POCT-GLUCOSE [id number] 12:34:54 Test Item Value Reference Range Interpretation Comments POC-GLUCOSE METER 117 mg/dL 70-110 H : TESTED A T [facility] 6720 (BEAKER) (test code = [place], 1538) [address]: Metal Riveting Machine Operator/Techni krupa ID = [id number] for ah, Nevel RAD, CHEST, 1 VIEW, NON [id number] 09:28:00Reason for exam:->s/p thoracotomyShould this be performed at the bedside?->Yes [facility] 1945 Sex: FFINAL [...] wall subcutaneous emphysema appears decreased. Signed: Sloan Steinersaint [facility] Verified Date/Time: 03/06/2022 09:28:52 Reading Location: [address] ReadingRoom POCT-GLUCOSE METER 2022-03-06 08:28:08 Test Item Value Reference Range Interpretation Comments POC-GLUCOSE METER 90 mg/dL 70-110 : TESTED A T [facility] 6720 (BEAKER) (test code = [place], 1538) [address]: Metal Riveting Machine Operator/Techni krupa ID = [id number] for Kamaljit(contract )Bib CBC W/PLT COUNT & AUTO [id number] 05:20:50 Test Item Value Reference Range Interpretation [...] 0.00-1.00 PERCENT (BEAKER) (test code = 2801) [id number] 05:02:45 Test Item Value Reference Range Interpretation Comments MAGNESIUM (BEAKER) 1.7 mg/dL 1.6-2.6 Specimen slightly (test code = 627) hemolyzed Metal Riveting Machine Operator ID - DEEPA [id number] 05:02:45 Test Item Value Reference Range Interpretation Comments PHOSPHORUS (BEAKER) 3.2 mg/dL 2.3-4.7 Specimen slightly (test code = 604) hemolyzed Metal Riveting Machine Operator ID - DEEPA LBASIC METABOLIC [id number] 05:02:45 Test Item Value Reference Range Interpretation [...] not appl icable for dialysis patien ts Metal Riveting Machine Operator ID - DEEPA LPOCT-GLUCOSE [id number] 22:58:05 Test Item Value Reference Range Interpretation Comments POC-GLUCOSE METER 101 mg/dL 70-110 : TESTED A T [facility] 6720 (BEAKER) (test code = [place], 1538) [address]: Metal Riveting Machine Operator/Techni krupa ID = [id number] for Ca Odette odell POCT-GLUCOSE [id number] 17:13:21 Test Item Value Reference Range Interpretation Comments POC-GLUCOSE METER 95 mg/dL 70-110 : TESTED A T [facility] 6720 (BEAKER) (test code = [facility] R [facility], 1538) [address]: Metal Riveting Machine Operator/Techni krupa ID = [id number] for Gunnar Rivera POCT-GLUCOSE [id number] 11:16:25 Test Item Value Reference Range Interpretation Comments POC-GLUCOSE METER 116 mg/dL 70-110 H : TESTED A T [facility] 6720 (BEAKER) (test code = [facility], 1538) [address]: Metal Riveting Machine Operator/Techni krupa ID = [id number] for Co Manish pierce Body fluid cell count with [id number] 10:36:54 Test Item Value Reference Range Interpretation Comments Appearance (test code Cloudy Clear A = 9335-1) Color (test code = Yellow Colorless, Straw A 6824-7) RBCs (test code = 1000 See_Comment H [Automate d 84540-2) message] The system which generated this result transmit warren reference range : <=1 /cu mm. The reference range was not used to interpret this result as normal/abnormal . Adjusted WBC Count 6197 See_Comment H [Automat ed (test code = 67834-2) messag e] The system which generated this result transmit warren reference range : <=5 /cu mm. The reference range was not used to interpret this result as normal/abnormal . Lining Cells (test 0 See_Comment [Automat ed code = 03930-9) message] The system which generated this result transmit warren reference range : <=1 /cu mm. The reference range was not used to interpret this result as normal/abnormal . % Segs (test code = 87 % 19435-7) % Lymphs (test code = 6 % 00582-2) % Monos (test code = 7 % 75185-5) % Eos (test code = 0 % 32154-4) % Baso (test code = 0 % 03087-7) Interpretation (test Agree with code = 64266-8) differential. Pathologist: (test Karlee Pate, code = 2620) ArtiD (electronic signature) Container Body Fluid EDTA Tube (test code = 2873) Lab Interpretation Abnormal (test code = 07804-0) [facility] count with xxgdjgwkslkv1211-24-89 10:36:54 Test Item Value Reference Range Interpretation Comments Appearance (test code Cloudy Clear A = 9335-1) Color (test code = Yellow Colorless, Straw A 6824-7) RBCs (test code = 1000 See_Comment H [Automate d 64872-3) message] The system which generated this result transmit warren reference range : <=1 /cu mm. The reference range was not used to interpret this result as normal/abnormal . Adjusted WBC Count 6197 See_Comment H [Automat ed (test code = 23853-0) messag e] The system which generated this result transmit warren reference range : <=5 /cu mm. The reference range was not used to interpret this result as normal/abnormal . Lining Cells (test 0 See_Comment [Automat ed code = 34331-0) message] The system which generated this result transmit warren reference range : <=1 /cu mm. The reference range was not used to interpret this result as normal/abnormal . % Segs (test code = 87 % 76242-8) % Lymphs (test code = 6 % 77559-4) % Monos (test code = 7 % 30535-0) % Eos (test code = 0 % 82853-1) % Baso (test code = 0 % 41781-3) Interpretation (test Agree with code = 87190-3) differential. Pathologist: (test Karlee Gali, code = 2620) Brittany (electronic signature) Container Body Fluid EDTA Tube (test code = 2873) Lab Interpretation Abnormal (test code = 00139-3) [facility] cell count with yihkrqoyuwax7449-76-80 10:36:54 Test Item Value Reference Range Interpretation Comments Appearance (test code Cloudy Clear A = 9335-1) Color (test code = Yellow Colorless, Straw A 6824-7) RBCs (test code = 1000 See_Comment H [Automate d 12467-5) message] The system which generated this result transmit warren reference range : <=1 /cu mm. The reference range was not used to interpret this result as normal/abnormal . Adjusted WBC Count 6197 See_Comment H [Automat ed (test code = 98152-3) messag e] The system which generated this result transmit warren reference range : <=5 /cu mm. The reference range was not used to interpret this result as normal/abnormal . Lining Cells (test 0 See_Comment [Automat ed code = 18746-7) message] The system which generated this result transmit warren reference range : <=1 /cu mm. The reference range was not used to interpret this result as normal/abnormal . % Segs (test code = 87 % 04924-3) % Lymphs (test code = 6 % 07226-9) % Monos (test code = 7 % 54475-3) % Eos (test code = 0 % 34963-3) % Baso (test code = 0 % 43909-1) Interpretation (test Agree with code = 63311-2) differential. Pathologist: (test Karlee Pate, code = 2620) M.D (electronic signature) Container Body Fluid EDTA Tube (test code = 2873) Lab Interpretation Abnormal (test code = 19577-1) [facility] count with sbqntfgznuad8737-66-67 10:36:54 Test Item Value Reference Range Interpretation Comments Appearance (test code Cloudy Clear A = 9335-1) Color (test code = Yellow Colorless, Straw A 6824-7) RBCs (test code = 1000 See_Comment H [Automate d 33323-3) message] The system which generated this result transmit warren reference range : <=1 /cu mm. The reference range was not used to interpret this result as normal/abnormal . Adjusted WBC Count 6197 See_Comment H [Automat ed (test code = 28224-0) messag e] The system which generated this result transmit warren reference range : <=5 /cu mm. The reference range was not used to interpret this result as normal/abnormal . Adjusted lining 0 See_Comment [Automated cells/Others (test message] The code = 65020-0) system which generated this result transmit warren reference range : <=1 /cu mm. The reference range was not used to interpret this result as normal/abnormal . % Segs (test code = 87 % 39392-8) % Lymphs (test code = 6 % 93529-4) % Monos (test code = 7 % 08378-3) % Eos (test code = 0 % 05978-2) % Baso (test code = 0 % 26038-2) Interpretation (test Agree with code = 67061-3) differential. Pathologist: (test Karlee Pate, code = 2620) MDariD (electronic signature) Container Body Fluid EDTA Tube (test code = 2873) Lab Interpretation Abnormal (test code = 95063-8) [facility] cell count with ygwtsrdsjosk9389-54-90 10:36:54 Test Item Value Reference Range Interpretation Comments Appearance (test code Cloudy Clear A = 9335-1) Color (test code = Yellow Colorless, Straw A 6824-7) RBCs (test code = 1000 See_Comment H [Automate d 72443-7) message] The system which generated this result transmit warren reference range : <=1 /cu mm. The reference range was not used to interpret this result as normal/abnormal . Adjusted WBC Count 6197 See_Comment H [Automat ed (test code = 46559-8) messag e] The system which generated this result transmit warren reference range : <=5 /cu mm. The reference range was not used to interpret this result as normal/abnormal . Adjusted lining 0 See_Comment [Automated cells/Others (test message] The code = 36610-8) system which generated this result transmit warren reference range : <=1 /cu mm. The reference range was not used to interpret this result as normal/abnormal . % Segs (test code = 87 % 13404-7) % Lymphs (test code = 6 % 16137-6) % Monos (test code = 7 % 22764-2) % Eos (test code = 0 % 73468-4) % Baso (test code = 0 % 07173-3) Interpretation (test Agree with code = 15321-9) differential. Pathologist: (test Karlee Pate, code = 2620) MDariD (electronic signature) Container Body Fluid EDTA Tube (test code = 2873) Lab Interpretation Abnormal (test code = 82859-8) [facility] Center[facility] FLUID CELL COUNT WITH [id number] 10:36:54 Test Item Value Reference Range Interpretation [...] with (BEAKER) (test code differential. = 2619) [id number] Karlee Herlinda, 0 (BEAKER) (test M.D (electronic code = 2620) signature) CONTAINER BODY EDTA Tube FLUID (BEAKER) (test code = 2873) RAD, CHEST, 1 VIEW, NON [id number] 09:49:00Reason for exam:->s/p thoracotomyShould this be performed at the bedside?->Yes [facility] : 1945 Sex: FFINAL REPORT Chest AP portable Comparison exam: 03/04/2022 History provided: Status post thoracotomy Patient has been extubated. Right jugular line remains in place. Three large bore right chest tubes remain in position with minute loculated right basilar pneumothorax. Airspace disease within the right lung unchanged. Left lung remains clear with vascularity normal. Signed: Tejas Danieleport Verified Date/Time: 03/05/2022 09:49:53 Reading Location: [facility] Diagnostic Imaging Reading Room- [facility] 1310.12 POCT-GLUCOSE [id number] 08:16:39 Test Item Value Reference Range Interpretation Comments POC-GLUCOSE METER 128 mg/dL 70-110 H : TESTED A T [facility] 6720 (BEAKER) (test code = [place] Jimenes [facility], 1538) [address]: Metal Riveting Machine Operator/Techni krupa ID = [id number] for Co Manish pierce CBC W/PLT COUNT & AUTO [id number] 04:01:40 Test Item Value Reference Range Interpretation [...] Result verified and resulted as per rn b#[id number] 01:39:34 Test Item Value Reference Range Interpretation Comments MAGNESIUM (BEAKER) (test code = 2.3 mg/dL 1.6-2.6 627) Metal Riveting Machine Operator ID - ANGELES [id number] 01:39:34 Test Item Value Reference Range Interpretation Comments PHOSPHORUS (BEAKER) (test code = 3.0 mg/dL 2.3-4.7 604) Metal Riveting Machine Operator ID - ANGELES MBASIC METABOLIC [id number] 01:39:33 Test Item Value Reference Range Interpretation [...] not appl icable for dialysis patien ts Metal Riveting Machine Operator ID - ANGELES MPOCT-GLUCOSE [id number] 22:10:13 Test Item Value Reference Range Interpretation Comments POC-GLUCOSE METER 146 mg/dL 70-110 H : TESTED A T [facility] 6720 (Xradia) (test code = [facility] [employer] [facility], 153) 36524: Metal Riveting Machine Operator/Techni krupa ID = [id number] for OR MS, SENORA POCT-GLUCOSE [id number] 16:15:52 Test Item Value Reference Range Interpretation Comments POC-GLUCOSE METER 167 mg/dL 70-110 H : TESTED A T [facility] 6720 (Xradia) (test code = [facility] [employer] [facility], 1538) 27589: Metal Riveting Machine Operator/Techni krupa ID = [id number] for Ke Omer fernandez POCT-GLUCOSE [id number] 13:49:25 Test Item Value Reference Range Interpretation Comments POC-GLUCOSE METER 181 mg/dL 70-110 H : TESTED A T [facility] 6720 (BEPandoo TEK) (test code = [facility] [employer] [facility], 1538) 03518: Metal Riveting Machine Operator/Techni krupa ID = [id number] for Omer Leach [id number] 10:07:40 Test Item Value Reference Range Interpretation Comments Cytology (test code = See Separate Report 2629) [facility]2022-12-07 10:07:40 Test Item Value Reference Range Interpretation Comments Cytology (test code = See Separate Report 2629) [facility]2022-12-07 10:07:40 Test Item Value Reference Range Interpretation Comments Cytology (test code = See Separate Report 2629) [facility]2022-12-07 10:07:40 Test Item Value Reference Range Interpretation Comments Cytology (test code = See Separate Report 2629) [facility]2022-12-07 10:07:40 Test Item Value Reference Range Interpretation Comments Cytology (test code = See Separate Report 2629) [facility] [id number] 10:07:40 Test Item Value Reference Range Interpretation Comments CYTOLOGY RESULT POINTER See Separate Report (BEAKER) (test code = 2629) [id number] 09:32:50 Test Item Value Reference Range Interpretation Comments Result (test code = 6463-4) 1+ Skin elena Gram Stain Result (test No organisms seen code = 1123) [facility]2022-12-07 09:32:50 Test Item Value Reference Range Interpretation Comments Result (test code = 6463-4) 1+ Skin leena Gram Stain Result (test No organisms seen code = 1123) [facility]2022-12-07 09:32:50 Test Item Value Reference Range Interpretation Comments Result (test code = 6463-4) 1+ Skin elena Gram Stain Result (test No organisms seen code = 1123) [facility]2022-12-07 09:32:50 Test Item Value Reference Range Interpretation Comments Result (test code = 6463-4) 1+ Skin elena Gram Stain Result (test No organisms seen code = 1123) [facility]2022-12-07 09:32:50 Test Item Value Reference Range Interpretation Comments Result (test code = 6463-4) 1+ Skin elena Gram Stain Result (test No organisms seen code = 1123) [facility] [id number] 09:32:50 Test Item Value Reference Range Interpretation Comments CULTURE (BEAKER) (test code 1+ Skin elena = 1095) GRAM STAIN RESULT (BEAKER) 2+ WBCs (test code = 1123) GRAM STAIN RESULT (BEAKER) No organisms seen (test code = 55797) (CELLAVISION MANUAL DIFF)2022-03-04 07:35:21 Test Item Value [...] CONCENTRATION Increased (CELLAVISION)(BEAKER) (test code = 3438) Metal Riveting Machine Operator ID - Pinky OverholtUser comments: Slide comments:CBC W/PLT COUNT & AUTO [id number] 07:35:20 Test Item Value Reference Range Interpretation [...] 0-0 (BEAKER) (test code = 413) POCT-GLUCOSE [id number] 06:41:39 Test Item Value Reference Range Interpretation Comments POC-GLUCOSE METER 192 mg/dL 70-110 H : TESTED A T [facility] 6720 (BEAKER) (test code = [place], 1538) [address]: Metal Riveting Machine Operator/Techni krupa ID = [id number] for OR MS, MOR SPIN/CONCENTRATION [id number] 05:35:00 Test Item Value Reference Range Interpretation Comments Concentration charged (test code = Done 332) [facility] [id number] 05:35:00 Test Item Value Reference Range Interpretation Comments Concentration charged (test code = Done 689) [facility] [id number] 05:35:00 Test Item Value Reference Range Interpretation Comments Concentration charged (test code = Done 3777) [facility] [id number] 05:35:00 Test Item Value Reference Range Interpretation Comments Concentration charged (test code = Done 2657) [facility] [id number] 05:35:00 Test Item Value Reference Range Interpretation Comments Concentration charged (test code = Done 2657) [facility] [id number] 05:35:00 Test Item Value Reference Range Interpretation Comments CONCENTRATION CHARGED (BEAKER) (test Done code = 2657) SPIN/CONCENTRATION [id number] 05:34:47 Test Item Value Reference Range Interpretation Comments CONCENTRATION CHARGED (BEAKER) (test Done code = 2657) Blood gas, [id number] 05:09:09 Test Item Value Reference Range Interpretation [...] 40 Lab Interpretation Abnormal (test code = 37265-6) [facility] Center[facility], [id number] 05:09:09 Test Item Value Reference Range Interpretation [...] 40 Lab Interpretation Abnormal (test code = 93169-0) [facility] Center[facility], [id number] 05:09:09 Test Item Value Reference Range Interpretation Comments pH, Arterial (test code 7.44 7.35-7.45 = 2744-1) pCO2, Arterial (test 28 See_Comment L [Autom ated code = 2019-8) message] The system which generated this result [...] 40 Lab Interpretation Abnormal (test code = 00277-6) [facility] Center[facility], [id number] 05:09:09 Test Item Value Reference Range Interpretation Comments pH, Arterial (test code 7.44 7.35-7.45 = 2744-1) pCO2, Arterial (test 28 See_Comment L [Autom ated code = 2019-) message] The system which generated this result [...] 40 Lab Interpretation Abnormal (test code = 88775-2) [facility] Center[facility], [id number] 05:09:09 Test Item Value Reference Range Interpretation [...] 40 Lab Interpretation Abnormal (test code = 23766-2) [facility] CenterBLOOD GAS, [id number] 05:09:09 Test Item Value Reference Range Interpretation [...] 1819) 40.0 RAD, CHEST, 1 VIEW, NON [id number] 04:55:00Reason for exam:->s/p thoracotomy with chest tubesShould this be performed at the bedside?->Yes [facility] 1945 Sex: FFINAL REPORT [...] [place] MDReport Verified Date/Time: 03/04/2022 04:55:28 POCT-GLUCOSE [id number] 03:54:53 Test Item Value Reference Range Interpretation Comments POC-GLUCOSE METER 180 mg/dL 70-110 H : TESTED A T [facility] 6720 (BEAKER) (test code = [facility] [facility] [place], 1538) 05483: Metal Riveting Machine Operator/Techni krupa ID = [id number] for As Enrrique yuan THROMBOELASTOGRAPH (TEG)2022-03-04 03:34:03 [...] % 0.0-5.0 code = 1414) BASIC METABOLIC [id number] 03:18:54 Test Item Value Reference Range Interpretation [...] not appl icable for dialysis patien ts Metal Riveting Machine Operator ID - ANGELES [id number] 03:18:54 Test Item Value Reference Range Interpretation Comments MAGNESIUM (BEAKER) (test code = 1.4 mg/dL 1.6-2.6 L 627) Metal Riveting Machine Operator ID - ANGELES [id number] 03:18:54 Test Item Value Reference Range Interpretation Comments PHOSPHORUS (BEAKER) (test code = 3.9 mg/dL 2.3-4.7 604) Metal Riveting Machine Operator ID - ANGELES MLactic Acid, [id number] 02:56:51 Test Item Value Reference Range Interpretation Comments Lactate, Art (test 2.5 mmol/L 0.5-2.2 H Specimen code = 2874) slightly hemolyzed TR (test code = TR) Metal Riveting Machine Operator ID - ANGELES M Lab Interpretation Abnormal (test code = 51383-0) [facility] CenterL[facility] Acid, [id number] 02:56:51 Test Item Value Reference Range Interpretation Comments Lactate, Art (test 2.5 mmol/L 0.5-2.2 H Specimen code = 2874) slightly hemolyzed TR (test code = TR) Metal Riveting Machine Operator ID - ANGELES Lewis Lab Interpretation Abnormal (test code = 55856-2) [facility] CenterLactic Acid, [id number] 02:56:51 Test Item Value Reference Range Interpretation Comments Lactate, Art (test 2.5 mmol/L 0.5-2.2 H Specimen code = 2874) slightly hemolyzed TR (test code = TR) Metal Riveting Machine Operator ID Justina Lewis Lab Interpretation Abnormal (test code = 94296-7) [facility] CenterLactic Acid, [id number] 02:56:51 Test Item Value Reference Range Interpretation Comments Lactate, Art (test 2.5 mmol/L 0.5-2.2 H Specimen code = 2874) slightly hemolyzed TR (test code = TR) Metal Riveting Machine Operator ID - ANGELES Lewis Lab Interpretation Abnormal (test code = 23990-7) [facility] CenterLactic Acid, [id number] 02:56:51 Test Item Value Reference Range Interpretation Comments Lactate, Art (test 2.5 mmol/L 0.5-2.2 H Specimen code = 2874) slightly hemolyzed TR (test code = TR) Metal Riveting Machine Operator ID - ANGELES Lewis Lab Interpretation Abnormal (test code = 41676-3) [facility] CenterLACTIC ACID, [id number] 02:56:51 Test Item Value Reference Range Interpretation Comments LACTATE BLOOD 2.5 mmol/L 0.5-2.2 H Specimen sligh tly ARTERIAL (2) (BEAKER) hemoly zed (test code = 2874) Metal Riveting Machine Operator ID - ANGELES [facility], [id number] 02:34:51 Test Item Value Reference Range Interpretation [...] (test code = 1819) 60.0 HGB/HCT (H&H)-Stat [id number] 23:48:23 Test Item Value Reference Range Interpretation Comments Hemoglobin (test code = 7.4 See_Comment L [Au tomated message] 718-7) The system [employer] generated this result transmitted ref erence range: 12.0 - 1 5.0 GM/DL. The refe rence range was not u sed to interpret this result as normal/abnor mal. Hematocrit (test code = 22.0 % 36.0-45.0 L 4544-3) Lab Interpretation (test Abnormal code = 40097-7) [facility] CenterHGB/HCT (H&H)-Stat [id number] 23:48:23 Test Item Value Reference Range Interpretation Comments Hemoglobin (test code = 7.4 See_Comment L [Au tomated message] 718-7) The system [employer] generated this result transmitted ref erence range: 12.0 - 1 5.0 GM/DL. The refe rence range was not u sed to interpret this result as normal/abnor mal. Hematocrit (test code = 22.0 % 36.0-45.0 L 4544-3) Lab Interpretation (test Abnormal code = 95538-4) [facility] CenterHGB/HCT (H&H)-Stat [id number] 23:48:23 Test Item Value Reference Range Interpretation Comments Hemoglobin (test code = 7.4 See_Comment L [Au tomated message] 718-7) The system [employer] generated this result transmitted ref erence range: 12.0 - 1 5.0 GM/DL. The refe rence range was not u sed to interpret this result as normal/abnor mal. Hematocrit (test code = 22.0 % 36.0-45.0 L 4544-3) Lab Interpretation (test Abnormal code = 18816-4) [facility] CenterHGB/HCT (H&H)-Stat [id number] 23:48:23 Test Item Value Reference Range Interpretation Comments Hemoglobin (test code = 7.4 See_Comment L [Au tomated message] 718-7) The system [employer] generated this result transmitted ref erence range: 12.0 - 1 5.0 GM/DL. The refe rence range was not u sed to interpret this result as normal/abnor mal. Hematocrit (test code = 22.0 % 36.0-45.0 L 4544-3) Lab Interpretation (test Abnormal code = 96613-8) [facility] CenterHGB/HCT (H&H)-Stat [id number] 23:48:23 Test Item Value Reference Range Interpretation Comments Hemoglobin (test code = 7.4 See_Comment L [Au tomated message] 718-7) The system [employer] generated this result transmitted ref erence range: 12.0 - 1 5.0 GM/DL. The refe rence range was not u sed to interpret this result as normal/abnor mal. Hematocrit (test code = 22.0 % 36.0-45.0 L 4544-3) Lab Interpretation (test Abnormal code = 32129-8) [facility] CenterBLOOD GAS, [id number] 23:48:23 Test Item Value Reference Range Interpretation [...] = 1819) 100.0 HGB/HCT (H&H) - STAT [id number] 23:48:23 Test Item Value Reference Range Interpretation Comments HEMOGLOBIN (BEAKER) (test code = 7.4 GM/DL 12.0-15.0 L 410) HEMATOCRIT (BEAKER) (test code = 22.0 % 36.0-45.0 L 411) Calcium, [id number] 23:47:56 Test Item Value Reference Range Interpretation Comments Calcium, Ion (test code = 1993-05) 1.23 mmol/L 1.12-1.27 pH, Blood (test code = 09156-1) 7.32 [facility] CenterCalcium, [id number] 23:47:56 Test Item Value Reference Range Interpretation Comments Calcium, Ion (test code = 1993-05) 1.23 mmol/L 1.12-1.27 pH, Blood (test code = 12321-8) 7.32 [facility] CenterCalcium, [id number] 23:47:56 Test Item Value Reference Range Interpretation Comments Calcium, Ion (test code = 1993-05) 1.23 mmol/L 1.12-1.27 pH, Blood (test code = 27467-6) 7.32 [facility] CenterCalcium, [id number] 23:47:56 Test Item Value Reference Range Interpretation Comments Calcium, Ion (test code = 1993-05) 1.23 mmol/L 1.12-1.27 pH, Blood (test code = 79792-6) 7.32 [facility] CenterCalcium, [id number] 23:47:56 Test Item Value Reference Range Interpretation Comments Calcium, Ion (test code = 1993-05) 1.23 mmol/L 1.12-1.27 pH, Blood (test code = 12945-9) 7.32 [facility] CenterCALCIUM, [id number] 23:47:56 Test Item Value Reference Range Interpretation Comments CALCIUM IONIZED (BEAKER) (test 1.23 mmol/L 1.12-1.27 code = 698) PH, BLOOD (BEAKER) (test code = 7.32 1810) Potassium-Stat [id number] 23:46:37 Test Item Value Reference Range Interpretation Comments Potassium (test code = 2823-3) 3.5 meq/L 3.6-5.5 L Lab Interpretation (test code = Abnormal 97364-0) [facility] CenterPotassium-Stat [id number] 23:46:37 Test Item Value Reference Range Interpretation Comments Potassium (test code = 2823-3) 3.5 meq/L 3.6-5.5 L Lab Interpretation (test code = Abnormal 96947-1) [facility] CenterPotassium-Stat [id number] 23:46:37 Test Item Value Reference Range Interpretation Comments Potassium (test code = 2823-3) 3.5 meq/L 3.6-5.5 L Lab Interpretation (test code = Abnormal 52780-2) [facility] CenterPotassium-Stat [id number] 23:46:37 Test Item Value Reference Range Interpretation Comments Potassium (test code = 2823-3) 3.5 meq/L 3.6-5.5 L Lab Interpretation (test code = Abnormal 21593-0) [facility] CenterPotassium-Stat [id number] 23:46:37 Test Item Value Reference Range Interpretation Comments Potassium (test code = 2823-3) 3.5 meq/L 3.6-5.5 L Lab Interpretation (test code = Abnormal 72659-2) [facility] CenterPOTASSIUM-STAT [id number] 23:46:37 Test Item Value Reference Range Interpretation Comments POTASSIUM (BEAKER) (test code = 3.5 meq/L 3.6-5.5 L 379) Glucose-Stat [id number] 23:46:36 Test Item Value Reference Range Interpretation Comments Glucose (test code = 2345-7) 176 mg/dL 70-110 H Lab Interpretation (test code = Abnormal 50884-9) [facility] Center[facility] Na-Stat [id number] 23:46:36 Test Item Value Reference Range Interpretation Comments Sodium (test code = 2951-2) 138 meq/L 136-145 Lab Interpretation (test code = Normal 36893-9) [facility] CenterGlucose-Stat [id number] 23:46:36 Test Item Value Reference Range Interpretation Comments Glucose (test code = 2345-7) 176 mg/dL 70-110 H Lab Interpretation (test code = Abnormal 68069-0) [facility] Na-Stat [id number] 23:46:36 Test Item Value Reference Range Interpretation Comments Sodium (test code = 2951-2) 138 meq/L 136-145 Lab Interpretation (test code = Normal 09798-5) [facility] CenterGlucose-Stat [id number] 23:46:36 Test Item Value Reference Range Interpretation Comments Glucose (test code = 2345-7) 176 mg/dL 70-110 H Lab Interpretation (test code = Abnormal 18669-2) [facility] Center[facility] Na-Stat [id number] 23:46:36 Test Item Value Reference Range Interpretation Comments Sodium (test code = 2951-2) 138 meq/L 136-145 Lab Interpretation (test code = Normal 77400-4) [facility] CenterGlucose-Stat [id number] 23:46:36 Test Item Value Reference Range Interpretation Comments Glucose (test code = 2345-7) 176 mg/dL 70-110 H Lab Interpretation (test code = Abnormal 57807-9) [facility] Center[facility] Na-Stat [id number] 23:46:36 Test Item Value Reference Range Interpretation Comments Sodium (test code = 2951-2) 138 meq/L 136-145 Lab Interpretation (test code = Normal 79295-6) [facility] CenterGlucose-Stat [id number] 23:46:36 Test Item Value Reference Range Interpretation Comments Glucose (test code = 2345-7) 176 mg/dL 70-110 H Lab Interpretation (test code = Abnormal 17105-9) [facility] Center[facility] Na-Stat [id number] 23:46:36 Test Item Value Reference Range Interpretation Comments Sodium (test code = 2951-2) 138 meq/L 136-145 Lab Interpretation (test code = Normal 05317-8) [facility] CenterGLUCOSE-STAT [id number] 23:46:36 Test Item Value Reference Range Interpretation Comments GLUCOSE RANDOM (BEAKER) (test code 176 mg/dL 70-110 H = 652) SODIUM NA-STAT [id number] 23:46:36 Test Item Value Reference Range Interpretation Comments SODIUM (BEAKER) (test code = 381) 138 meq/L 136-145 POTASSIUM-STAT [id number] 23:00:05 Test Item Value Reference Range Interpretation Comments POTASSIUM (BEAKER) (test code = 3.2 meq/L 3.6-5.5 L 379) HGB/HCT (H&H) - STAT [id number] 23:00:05 Test Item Value Reference Range Interpretation Comments HEMOGLOBIN (BEAKER) (test code = 9.0 GM/DL 12.0-15.0 L 410) HEMATOCRIT (BEAKER) (test code = 26.0 % 36.0-45.0 L 411) BLOOD GAS, [id number] 23:00:04 Test Item Value Reference Range Interpretation [...] (test code = 1819) 100.0 SODIUM NA-STAT [id number] 22:59:54 Test Item Value Reference Range Interpretation Comments SODIUM (BEAKER) (test code = 381) 136 meq/L 136-145 GLUCOSE-STAT [id number] 22:59:53 Test Item Value Reference Range Interpretation Comments GLUCOSE RANDOM (BEAKER) (test code 170 mg/dL 70-110 H = 652) HEPATIC FUNCTION [id number] 06:34:23 Test Item Value Reference Range Interpretation [...] code = < U/L 6-55 L 347) Metal Riveting Machine Operator ID - MARCOBASIC METABOLIC [id number] 06:21:02 Test Item Value Reference Range Interpretation [...] not appl icable for dialysis patien ts Metal Riveting Machine Operator ID - [id number] 06:21:02 Test Item Value Reference Range Interpretation Comments MAGNESIUM (BEAKER) (test code = 1.7 mg/dL 1.6-2.6 627) [employer] Riveting Machine Operator ID - EDELOCBC W/PLT COUNT & AUTO [id number] 05:40:39 Test Item Value Reference Range Interpretation [...] (BEAKER) (test code = 2801) Surgical pathology [id number] 20:56:41 Test Item Value Reference Range Interpretation Comments Case number (test code = [id number]) Surgical pathology See link below for report (test code = PDF Lab Report 8097) Result status (test code This is Final Report = [id number]) for [id number] [facility] [id number] 20:56:41 Test Item Value Reference Range Interpretation Comments Case number (test code = [id number]) Surgical pathology See link below for report (test code = PDF Lab Report 2255) Result status (test code This is Final Report = [id number]) [id number] [facility] [id number] 11:47:05Surgical Pathology Report Case: [id number] Authorizing Provider: Cecil Delacruz MD Collected: 01/15/2022 08:00 AM Ordering Location: [address] MED/SURG Received: 02/27/2022 01:26 PM Pathologist:Karlee Pate MD Specimens: A) - Pleural, Right B) - Pleural ATTENTION: This specimen was received during a prolonged [facility] downtime. During this downtime, the original signed pathology reportwas faxed to the ordering provider. This pathology report has subsequently been scanned into [employer]. Please see attached scanned pathology report. Signing Pathologist Direct Phone Line: [phone] signed by Karlee Pate MD on 03/02/2022 at 11:47 AMPT/[id number] 11:36:34 Test Item Value Reference Range Interpretation [...] (test code = 347) EGFR (BEAKER) 92 Interpretati on of eGFR (test code = [...] not appl icable for dialysis patien ts Metal Riveting Machine Operator ID - GAYLA [id number] 05:48:19 Test Item Value Reference Range Interpretation Comments PREALBUMIN (BEAKER) (test code = 586) 9 mg/dL 14-45 L Metal Riveting Machine Operator ID - EMMANUELCBC (HEMOGRAM ONLY)2022-03-02 05:10:25 Test [...] SARS-Co V-2 (test code = target nucleic 09665-3) acids are not detected in [facility] s specimen. Negat tyrone results do not [...] rapid, real-roslyn e RT-PCR test intended for e qualitative detection of nucleic acid fr [...] revoked sooner. Fact Sheet for Healthcare Providers: https://www.[employer]/Documents/Xp ert%20Xpress%20SAR S%20CoV-2/Fact%20S heets/302-3802%20S ARS-COV-2%20HEALTH CARE%20PROVIDERS%2 0FACT%20SHEET.pdf Fact Sheet for Healthcare Patients: https://wwwUZwan/Documents/Xp ert%20Xpress%20SAR S%20CoV-2/Fact%20S heets/302-3801%20S ARS-COV-2%20PATIEN T%20FACT%20SHEET.p df Lab Interpretation Normal (test code = 37437-2) [facility] (Asymptomatic ONLY)2022-03-01 22:00:34 Test Item Value Reference Interpretation Comments Range SARS-COV2/RT-PCR Negative Negative The SARS-Co V-2 (test code = target nucleic 79209-8) acids are not detected in thi s [...] revoked sooner. Fact Sheet for Healthcare Providers: https://www.[employer]/Documents/Xp ert%20Xpress%20SAR S%20CoV-2/Fact%20S heets/302-3802%20S ARS-COV-2%20HEALTH CARE%20PROVIDERS%2 0FACT%20SHEET.pdf Fact Sheet for Healthcare Patients: https://wwwUZwan/Documents/Xp ert%20Xpress%20SAR S%20CoV-2/Fact%20S heets/302-3801%20S ARS-COV-2%20PATIEN T%20FACT%20SHEET.p df Lab Interpretation Normal (test code = 46652-1) [facility] (Asymptomatic ONLY)2022-03-01 22:00:34 Test Item Value Reference Interpretation Comments Range SARS-COV2/RT-PCR Negative Negative The SARS-Co V-2 (test code = target nucleic 22298-9) acids are not detected in thi s [...] revoked sooner. Fact Sheet for Healthcare Providers: https://www.[employer]/Documents/Xp ert%20Xpress%20SAR S%20CoV-2/Fact%20S heets/302-3802%20S ARS-COV-2%20HEALTH CARE%20PROVIDERS%2 0FACT%20SHEET.pdf Fact Sheet for Healthcare Patients: https://www.[employer]/Documents/Xp ert%20Xpress%20SAR S%20CoV-2/Fact%20S heets/302-3801%20S ARS-COV-2%20PATIEN T%20FACT%20SHEET.p df Lab Interpretation Normal (test code = 76865-9) [facility] (Asymptomatic ONLY)2022-03-01 22:00:34 Test Item Value Reference Interpretation Comments Range SARS-COV2/RT-PCR Negative Negative The SARS-Co V-2 (test code = target nucleic 35610-4) acids are not detected in thi s [...] revoked sooner. Fact Sheet for Healthcare Providers: https://www.[employer]/Documents/Xp ert%20Xpress%20SAR S%20CoV-2/Fact%20S heets/302-3802%20S ARS-COV-2%20HEALTH CARE%20PROVIDERS%2 0FACT%20SHEET.pdf Fact Sheet for Healthcare Patients: https://www.[employer]/Documents/Xp ert%20Xpress%20SAR S%20CoV-2/Fact%20S heets/302-3801%20S ARS-COV-2%20PATIEN T%20FACT%20SHEET.p df Lab Interpretation Normal (test code = 80877-6) [facility] (Asymptomatic ONLY)2022-03-01 22:00:34 Test Item Value Reference Interpretation Comments Range SARS-COV2/RT-PCR Negative Negative The SARS-Co V-2 (test code = target nucleic 54412-0) acids are not detected in thi s [...] revoked sooner. Fact Sheet for Healthcare Providers: https://www.[employer]/Documents/Xp ert%20Xpress%20SAR S%20CoV-2/Fact%20S heets/302-3802%20S ARS-COV-2%20HEALTH CARE%20PROVIDERS%2 0FACT%20SHEET.pdf Fact Sheet for Healthcare Patients: https://www.[employer]/Documents/Xp ert%20Xpress%20SAR S%20CoV-2/Fact%20S heets/302-3801%20S ARS-COV-2%20PATIEN T%20FACT%20SHEET.p df Lab Interpretation Normal (test code = 63008-2) [facility]2022-03-01 22:00:34 Test Item Value Reference Range Interpretation Comments SARS-COV2/RT-PCR Negative Negative The SARS-Co V-2 target (test code = nucleic acids a re not 6473760) detected in thi s specimen. Negative result s do not preclude SARS-C oV-2 infection and s hould not be used as the den e basis for patient managem ent decisions. Nega tive results must be combine d with clinical observ ations, patient history , and epidemiological information. A false negativ e result may occur if a spec imen is improperly chapin ected, transported or handled. This SARS CoV-2 [...] revoked sooner. Fact Sheet for Healthcare Providers: https://www.[employer]/Documents/Xpert%20Xpress%20SARS%20CoV-2/Fact%20Sheets/302-3802%21RBZT-QWE-2%20 HEALTHCARE%20PROVIDERS%20FACT%20SHEET.pdf Fact Sheet for Healthcare Patients: https://www.[employer]/Documents/Xpert%20Xp ress%20SARS%20CoV-2/Fact%20Sheets/302-3801%71JRJZ-VOL-3%20PATIENT%20FACT%20SHEET .pdfCT, CHEST, WITH [id number] 18:01:00Eval for abdominal wall abscess/infection just underneath right breast on examUnlisted Reason for Exam - Click Yes and Enter Reason Below->YesUnlisted Reason for Exam->purulent drainage from right anterior chest wall s/p [facility] 1945 Sex: FFINAL REPORT [...] mid, and lower lobes. Signed: Wilner Smith MDReport Verified Date/Time: 18:01:47 CBC W/PLT COUNT & AUTO [id number] 17:31:31 Test Item Value Reference Range Interpretation [...] (BEAKER) (test code = 2801) COMPREHENSIVE METABOLIC [id number] 16:27:32 Test Item Value Reference Range Interpretation [...] not appl icable for dialysis patien ts [employer] Machine Operator ID - TRISTINLACTIC ACID, [id number] 16:07:32 Test Item Value Reference Range Interpretation Comments LACTATE BLOOD VENOUS 0.95 mmol/L 0.50-2.20 Specime n slightly (2) (BEAKER) (test hemolyzed code = 2872) [employer] Machine Operator ID - LYNDON, CHEST, 2 [id number] 15:29:00Reason for exam:- >WOUND CHECKCH[facility] : 1945 Sex: FFINAL [...] and lower lobes subsegmental atelectasis. Signed: Wilner Smith MDReport Verified Date/Time: 5:29:13 Cytology (non-gynecological) [id number] 15:13:14 Test Item Value Reference Range Interpretation Comments Case number (test [id number] code = 4449183) Cytology See link below for PDF (non-gynecological) Lab Report report (test code = 1178) Result status (test This is Supplemental code = 0226806) Report [id number] [facility] [id number] 15:13:14 Test Item Value Reference Range Interpretation Comments Case number (test [id number] code = 6084115) Cytology See link below for PDF (non-gynecological) Lab Report report (test code = 1178) Result status (test This is Supplemental code = 7455311) Report for [id number] [facility] [id number] 14:11:00 Test Item Value Reference Range Interpretation Comments Anaerobic No anaerobic Specimen culture isolate organisms InformationS pecimen (test code = isolated. Source: Drainag eSpecimen 28028-1) Site: Liver: pe ri-hepatic mass biopsy and culture [facility] [id number] 14:11:00 Test Item Value Reference Range Interpretation Comments Anaerobic No anaerobic Specimen culture isolate organisms InformationS pecimen (test code = isolated. Source: Drainag eSpecimen 15619-5) Site: Liver: pe ri-hepatic mass biopsy [facility] [id number] 02:08:00 Test Item Value Reference Range Interpretation Comments Aerobic culture No growth Specimen isolate (test after 2 days. InformationSp ecimen code = 34422-0) [facility] Liver: pe ri-hepatic mass biopsy and culture [facility] [id number] 02:08:00 Test Item Value Reference Range Interpretation Comments Aerobic culture No growth Specimen isolate (test after 2 days. InformationSp ecimen code = 08374-9) [facility] Site: Liver: pe ri-hepatic mass biopsy and culture [facility] [id number] 18:03:00 Test Item Value Reference Range Interpretation Comments Fungus smear No fungi Specimen (test code = observed. InformationSpec imen Source: 1443) DrainageSpecime n Site: Liver: sohan-hep atic mass biopsy and cult ure [facility] [id number] 18:03:00 Test Item Value Reference Range Interpretation Comments Fungus smear No fungi Specimen (test code = observed. InformationSpec imen Source: 1443) DrainageSpecime n Site: Liver: sohan-hep atic mass biopsy and cult ure [facility] [id number] 11:12:00 Test Item Value Reference Range Interpretation Comments AFB stain No acid fast Specimen (test code = bacilli (AFB) InformationSpe cimen 676-7) seen. Source: Drainag eSpecimen Site: Liver: pe ri-hepatic mass biopsy and culture [facility] [id number] 11:12:00 Test Item Value Reference Range Interpretation Comments AFB stain No acid fast Specimen (test code = bacilli (AFB) InformationSpe cimen 676-7) seen. Source: Drainag eSpecimen Site: Liver: pe ri-hepatic mass biopsy and culture [facility] [id number] 03:22:00 Test Item Value Reference Range Interpretation Comments Gram stain No organisms Specimen isolate (test seen InformationSpe cimen code = 1469) Source: Drainag eSpecimen Site: Liver: pe ri-hepatic mass biopsy and culture [facility] [id number] 03:22:00 Test Item Value Reference Range Interpretation Comments Gram stain No organisms Specimen isolate (test seen InformationSpe cimen code = 1469) Source: Drainag eSpecimen Site: Liver: pe ri-hepatic mass biopsy and culture [facility] [id number] 16:18:15Medical Cytology Report Case: [id number] Authorizing Provider: Mauricio Britton Collected: 01/28/2022 09:41 AM MD Afsaneh Ordering Location: [address] MED/SURG Received: 01/28/2022 03:58 PM Specimen: Pleural, Right ATTENTION: This specimen was received during a downtime event. The original signed pathology report was faxed to the ordering provider. The finalized report has been scanned as an attachment, below. In [facility], clinical documentation is located in the Media tab. Contact your Health Information Management department with any questions. Signing Pathologist Direct Phone Line: [phone] signed by Enio Paul MD on 01/30/2022 at 4:18 PMA. Pleural, Right.RAD, CHEST, 1 VIEW, NON [id number] 10:52:00[facility] : 1945 Sex: FCabanJohn [id number] [address] [place] [address] portableCOMPARISON STUDY: 01/07/2022History provided: Follow-up pleural effusionModerately large amount of pleural fluid persists on the right despite yesterday'slarge volume thoracentesis. Underlying atelectasis within the right lower lobe. Left lung clear. Normal vascularity.Signed: Tejas Brasher Verified Date/Time: 01/08/2022 8:04:20 AM U/S, [id number] 10:22:00 [facility] : 1945 Sex: FSteph CabanRN [id number] 04 19 45 ULTRASOUND GUIDED THORACENTESIS History [...] space was accessed with a one-stick 5 Syrian sheathed needle. Approximately 1260 cc of greenish [...] 2D Echo W/Doppler(CW/PW/Color)2022-01-25 07:46:20[facility]CW/PW/Color[facility]2022-01-25 07:46:20[facility]SLEH [facility] W/Doppler(CW/PW/Color)2022-01-25 07:46:20[facility]SLEH [facility] W/Doppler(CW/PW/Color) 2022-01-25 07:46:20[facility]SLEH [facility] W/Doppler(CW/PW/Color)2022-01-25 07:46:20Ejection FractionSLEH ECHO HEARTLAB [facility] COMPREHENSIVE METABOLIC [id number] 04:41:50 Test Item Value Reference Range Interpretation [...] not appl icable for dialysis patien ts Metal Riveting Machine Operator ID - NOLICBC W/PLT COUNT & AUTO [id number] 04:21:14 Test Item Value Reference Range Interpretation [...] 0.00-0.00 H PERCENT (BEAKER) (test code = 2805) COMPREHENSIVE METABOLIC [id number] 05:15:43 Test Item Value Reference Range Interpretation [...] not appl icable for dialysis patien ts Metal Riveting Machine Operator ID - PURACBC W/PLT COUNT & AUTO [id number] 04:45:43 Test Item Value Reference Range Interpretation [...] (BEAKER) (test code = 2801) COMPREHENSIVE METABOLIC [id number] 05:11:58 Test Item Value Reference Range Interpretation [...] not appl icable for dialysis patien ts Metal Riveting Machine Operator ID - [place] TCBC W/PLT COUNT & AUTO [id number] 04:55:42 Test Item Value Reference Range Interpretation [...] (test code = 2801) CT, CHEST, WITH [id number] 22:40:00Reason for exam:->Empyema [facility] : 1945 Sex: FFINAL REPORT CT of the Chest dated 01/21/2022 COMPARISON: January 09, 2022 CLINICAL INFORMATION: EmpyemaEmpyema Comment: Axial images of the chest were obtained from thoracic inlet to the upper abdomen with intravenous contrast. This exam was performed according to our departmental dose-opti mization program, which includes automated exposure control, adjustment of the mA and/or kV according to patient size and/or use of interactive reconstruction technique. Both thyroid lobes are normal in size. An 8 mm calcified nodule is seen in the right thyroid lobe . A 7 mm calcified nodule is seen in the right thyroid lobe. Heart is normal in size. Great vessels are unremarkable. No adenopathy in the mediastinum or perihilar region. Trachea and mainstem bronchi are patent. There is interval decrease in size of the loculated right pleural collection. Air is seen in the right pleural space thoughtto represent post procedure changes. Subsegmental atelectasis is seen in the right upper, right mid,and right lower lobes. The left lung is clear. Visualized upper abdomen demonstrates no focal lesion. Impression: Interval decrease in size of the loculated right pleural effusion with subsegmental atelectasis in the right upper, mid, and lower lobes. Signed: Wilner Smith Verified Date/Time: 22:40:10 RAD, CHEST, 1 VIEW, NON [id number] 09:14:00Reason for exam:- >hypoxiaShould this be performed at the bedside?->Yes [facility] : 1945 Sex: FFINAL REPORT [...] Null Verified Date/Time: 01/21/2022 09:14:31 Reading Location: [facility] REHENSIVE METABOLIC [id number] 04:52:40 Test Item Value Reference Range Interpretation [...] not appl icable for dialysis patien ts Metal Riveting Machine Operator ID - CHOPZCBC W/PLT COUNT & AUTO [id number] 04:38:41 Test Item Value Reference Range Interpretation [...] = 2801) CBC W/PLT COUNT & AUTO [id number] 15:22:19 Test Item Value Reference Range Interpretation [...] PERCENT (BEAKER) (test code = 2801) Urinalysis w/Oqlnadqgvid3042-64-81 15:20:53 Test Item Value Reference Range Interpretation Comments Color, UA (test code = Yellow 5778-6) Clarity, UA (test code = Turbid 5767-9) Specific Roberts, UA 1.025 1.001-1.035 (test code = 5811-5) pH, UA (test code = 6.0 5.0-8.0 5803-2) Protein, UA (test code = 30 mg/dL Negative A 67815-6) Glucose, UA (test code = Negative Negative 365) Ketones, UA (test code = Negative Negative 2514-8) Bilirubin, UA (test code Negative Negative = 61657-9) Blood, UA (test code = Negative Negative 75271-1) Nitrite, UA (test code = Negative Negative 5802-4) Leukocytes, UA (test Negative Negative code = 5799-2) Urobilinogen, UA (test 0.2 code = 82013-7) Bacteria, UA (test code Few = 05706-4) RBC, UA (test code = None Seen See_Comment [Autom ated message] 799-7) The system [employer] generated this result transmit warren reference range : /HPF. The refer ence range was not u sed to interpret th is result as normal/abnormal . WBC, UA (test code = <5 See_Comment [Autom ated message] 82624-8) The system [employer] generated this result transmit warren reference range : /HPF. The refer ence range was not u sed to interpret th is result as normal/abnormal . SQUAMOUS EPITHELIAL 5-10 See_Comment [Automa warren message] (test code = 40787-0) The sy stem which generated this result transmit warren reference range : /HPF. The refer ence range was not u sed to interpret th is result as normal/abnormal . Specimen Source (test code = 2795) Lab Interpretation (test Abnormal code = 08156-6) [facility]/Dhrfurfvped6284-22-98 15:20:53 Test Item Value Reference Range Interpretation Comments Color, UA (test code = Yellow 5778-6) Clarity, UA (test code = Turbid 5767-9) Specific Roberts, UA 1.025 1.001-1.035 (test code = 5811-5) pH, UA (test code = 6.0 5.0-8.0 5803-2) Protein, UA (test code = 30 mg/dL Negative A 85442-8) Glucose, UA (test code = Negative Negative 365) Ketones, UA (test code = Negative Negative 2514-8) Bilirubin, UA (test code Negative Negative = 50293-6) Blood, UA (test code = Negative Negative 73375-6) Nitrite, UA (test code = Negative Negative 5802-4) Leukocytes, UA (test Negative Negative code = 5799-2) Urobilinogen, UA (test 0.2 code = 08392-5) Bacteria, UA (test code Few = 79062-0) RBC, UA (test code = None Seen See_Comment [Autom ated message] 799-7) The system [employer] generated this result transmit warren reference range : /HPF. The refer ence range was not u sed to interpret th is result as normal/abnormal . WBC, UA (test code = <5 See_Comment [Autom ated message] 33370-6) The system [employer] generated this result transmit warren reference range : /HPF. The refer ence range was not u sed to interpret th is result as normal/abnormal . SQUAMOUS EPITHELIAL 5-10 See_Comment [Automa warren message] (test code = 51448-8) The sy stem which generated this result transmit warren reference range : /HPF. The refer ence range was not u sed to interpret th is result as normal/abnormal . Specimen Source (test code = 2795) Lab Interpretation (test Abnormal code = 42366-9) [facility] Center[facility] w/Pcvzodusdez0934-10-23 15:20:53 Test Item Value Reference Range Interpretation Comments Color, UA (test code = Yellow 5778-6) Clarity, UA (test code = Turbid 5767-9) Specific Roberts, UA 1.025 1.001-1.035 (test code = 5811-5) pH, UA (test code = 6.0 5.0-8.0 5803-2) Protein, UA (test code = 30 mg/dL Negative A 82840-3) Glucose, UA (test code = Negative Negative 365) Ketones, UA (test code = Negative Negative 2514-8) Bilirubin, UA (test code Negative Negative = 20264-0) Blood, UA (test code = Negative Negative 03972-1) Nitrite, UA (test code = Negative Negative 5802-4) Leukocytes, UA (test Negative Negative code = 5799-2) Urobilinogen, UA (test 0.2 code = 47669-5) Bacteria, UA (test code Few = 95706-0) RBC, UA (test code = None Seen See_Comment [Autom ated message] 799-7) The system [employer] generated this result transmit warren reference range : /HPF. The refer ence range was not u sed to interpret th is result as normal/abnormal . WBC, UA (test code = <5 See_Comment [Autom ated message] 70918-5) The system [employer] generated this result transmit warren reference range : /HPF. The refer ence range was not u sed to interpret th is result as normal/abnormal . SQUAMOUS EPITHELIAL 5-10 See_Comment [Automa warren message] (test code = 35643-3) The sy stem which generated this result transmit warrne reference range : /HPF. The refer ence range was not u sed to interpret th is result as normal/abnormal . Specimen Source (test code = 2795) Lab Interpretation (test Abnormal code = 58292-9) [facility] Center[facility] w/Cnwdnbsnavg7850-59-70 15:20:53 Test Item Value Reference Range Interpretation Comments Color, UA (test code = Yellow 5778-6) Clarity, UA (test code = Turbid 5767-9) Specific Roberts, UA 1.025 1.001-1.035 (test code = 5811-5) pH, UA (test code = 6.0 5.0-8.0 5803-2) Protein, UA (test code = 30 mg/dL Negative A 92675-8) Glucose, UA (test code = Negative Negative 365) Ketones, UA (test code = Negative Negative 2514-8) Bilirubin, UA (test code Negative Negative = 20676-4) Blood, UA (test code = Negative Negative 80655-7) Nitrite, UA (test code = Negative Negative 5802-4) Leukocytes, UA (test Negative Negative code = 5799-2) Urobilinogen, UA (test 0.2 code = 64068-1) Bacteria, UA (test code Few = 51602-1) RBC, UA (test code = None Seen See_Comment [Autom ated message] 799-7) The system [employer] generated this result transmit warren reference range : /HPF. The refer ence range was not u sed to interpret th is result as normal/abnormal . WBC, UA (test code = <5 See_Comment [Autom ated message] 78981-9) The system [employer] generated this result transmit warren reference range : /HPF. The refer ence range was not u sed to interpret th is result as normal/abnormal . SQUAMOUS EPITHELIAL 5-10 See_Comment [Automa warren message] (test code = 39126-9) The sy stem which generated this result transmit warren reference range : /HPF. The refer ence range was not u sed to interpret th is result as normal/abnormal . Specimen Source (test code = 2795) Lab Interpretation (test Abnormal code = 59333-4) [facility] Center[facility] w/Nofahiiczjs4976-36-16 15:20:53 Test Item Value Reference Range Interpretation Comments Color, UA (test code = Yellow 5778-6) Clarity, UA (test code = Turbid 5767-9) Specific Roberts, UA 1.025 1.001-1.035 (test code = 5811-5) pH, UA (test code = 6.0 5.0-8.0 5803-2) Protein, UA (test code = 30 mg/dL Negative A 91603-4) Glucose, UA (test code = Negative Negative 365) Ketones, UA (test code = Negative Negative 2514-8) Bilirubin, UA (test code Negative Negative = 67251-1) Blood, UA (test code = Negative Negative 37613-7) Nitrite, UA (test code = Negative Negative 5802-4) Leukocytes, UA (test Negative Negative code = 5799-2) Urobilinogen, UA (test 0.2 code = 69767-6) Bacteria, UA (test code Few = 60221-8) RBC, UA (test code = None Seen See_Comment [Autom ated message] 799-7) The system [employer] generated this result transmit warren reference range : /HPF. The refer ence range was not u sed to interpret th is result as normal/abnormal . WBC, UA (test code = <5 See_Comment [Autom ated message] 46001-1) The system [employer] generated this result transmit warren reference range : /HPF. The refer ence range was not u sed to interpret th is result as normal/abnormal . SQUAMOUS EPITHELIAL 5-10 See_Comment [Automa warren message] (test code = 63161-5) The sy stem which generated this result transmit warren reference range : /HPF. The refer ence range was not u sed to interpret th is result as normal/abnormal . Specimen Source (test code = 2795) Lab Interpretation (test Abnormal code = 40619-7) [facility] W/ [id number] 15:20:53 Test Item Value Reference Range Interpretation [...] SOURCE(BEAKER) (test code = 2795) BASIC METABOLIC [id number] 15:19:44 Test Item Value Reference Range Interpretation [...] appl icable for dialysis patien ts COVID [id number] 15:18:59 Test Item Value Reference Range Interpretation Comments SARS COVID ANTIGEN Negative Negative (test code = 81706-8) TR (test code = TR) The [employer] SARS Antigen test does not differentiate between SARS-CoV and SARS-CoV-2. The test has been authorized by the FDA under an EUA for use by authorized laboratories. Lab Interpretation Normal (test code = 74744-8) [facility] CenterCOVID [id number] 15:18:59 Test Item Value Reference Range Interpretation Comments SARS COVID ANTIGEN Negative Negative (test code = 10425-9) TR (test code = TR) The [employer] SARS Antigen test does not differentiate between SARS-CoV and SARS-CoV-2. The test has been authorized by the FDA under an EUA for use by authorized laboratories. Lab Interpretation Normal (test code = 48007-9) [facility] Center[facility] [id number] 15:18:59 Test Item Value Reference Range Interpretation Comments SARS COVID ANTIGEN Negative Negative (test code = 89367-8) TR (test code = TR) The [employer] SARS Antigen test does not differentiate between SARS-CoV and SARS-CoV-2. The test has been authorized by the FDA under an EUA for use by authorized laboratories. Lab Interpretation Normal (test code = 01703-4) [facility] Center[facility] [id number] 15:18:59 Test Item Value Reference Range Interpretation Comments SARS COVID ANTIGEN Negative Negative (test code = 22803-3) TR (test code = TR) The [employer] SARS Antigen test does not differentiate between SARS-CoV and SARS-CoV-2. The test has been authorized by the FDA under an EUA for use by authorized laboratories. Lab Interpretation Normal (test code = 07736-2) [facility] Center[facility] [id number] 15:18:59 Test Item Value Reference Range Interpretation Comments SARS COVID ANTIGEN Negative Negative (test code = 42850-6) TR (test code = TR) The [employer] SARS Antigen test does not differentiate between SARS-CoV and SARS-CoV-2. The test has been authorized by the FDA under an EUA for use by authorized laboratories. Lab Interpretation Normal (test code = 87119-9) [facility] Center[facility] [id number] 15:18:59 Test Item Value Reference Range Interpretation Comments SARS COVID ANTIGEN (test code = Negative Negative 40491612) The [employer] SARS Antigen test does not differentiate between SARS-CoV and SARS-CoV-2.The test has been authorized by the FDA under an EUA for use by authorized laboratories.CBC W/PLT COUNT & AUTO [id number] 15:15:54 Test Item Value Reference Range Interpretation [...] H PERCENT (BEAKER) (test code = 2801) [id number] 15:14:25 Test Item Value Reference Range Interpretation [...] is 2.5-3.5 for patients with mechanical heart valves.[id number] 15:13:52 Test Item Value Reference Range Interpretation Comments POTASSIUM (BEAKER) (test code = 4.1 meq/L 3.6-5.5 379) COMPREHENSIVE METABOLIC [id number] 15:10:05 Test Item Value Reference Range Interpretation [...] patien ts CBC W/PLT COUNT & AUTO [id number] 14:38:24 Test Item Value Reference Range Interpretation [...] (BEAKER) (test code = 413) BASIC METABOLIC [id number] 14:34:04 Test Item Value Reference Range Interpretation [...] not appl icable for dialysis patien ts PT/[id number] 14:30:55 Test Item Value Reference Range Interpretation [...] 2.5-3.5 for patients with mechanical heart valves.SARS-COV2/RT-PCR ([facility]) 2022-01-20 14:30:23 Test Item Value Reference Range Interpretation Comments SARS-COV2/RT-PCR (test Negative Not Detected, Negative, See code = 7933291) external report for linked test URINALYSIS W/ LAOXMJXWVPQ2970-05-08 14:29:56 Test Item Value Reference Range Interpretation [...] code = 1663) SOURCE(BEAKER) (test code = 8905) BASIC METABOLIC [id number] 14:28:28 Test Item Value Reference Range Interpretation [...] (test code = 697) EGFR (BEAKER) 84 Interpretati on of eGFR (test code = mL/min/1.73 values [...] patien ts CBC W/PLT COUNT & AUTO [id number] 14:22:38 Test Item Value Reference Range Interpretation [...] (BEAKER) (test code = 2801) BASIC METABOLIC [id number] 14:20:55 Test Item Value Reference Range Interpretation [...] patien ts CBC W/PLT COUNT & AUTO [id number] 14:18:23 Test Item Value Reference Range Interpretation [...] (BEAKER) (test code = 2801) BASIC METABOLIC [id number] 14:16:03 Test Item Value Reference Range Interpretation [...] not appl icable for dialysis patien ts PT/[id number] 14:15:06 Test Item Value Reference Range Interpretation [...] is 2.5-3.5 for patients with mechanical heart valves.[id number] 14:12:04 Test Item Value Reference Range Interpretation Comments FERRITIN (BEAKER) (test code = 605.93 ng/mL 10.00-291.00 H 361) VANCOMYCIN LEVEL, [id number] 14:11:21 Test Item Value Reference Range Interpretation Comments VANCOMYCIN RANDOM (BEAKER) (test 11.4 ug/mL code = 523) Reference Range: No NormalsBASIC METABOLIC [id number] 14:10:49 Test Item Value Reference Range Interpretation [...] for dialysis patien ts WHITE BLOOD CELL [id number] 14:07:57 Test Item Value Reference Range Interpretation [...] = 762) CBC W/PLT COUNT & AUTO [id number] 13:59:00 Test Item Value Reference Range Interpretation [...] 0-0 (BEAKER) (test code = 413) PROTHROMBIN TIME/[id number] 13:56:02 Test Item Value Reference Range Interpretation Comments PROTIME (BEAKER) 15.1 seconds 9.8-12.0 H (test code = 759) INR (BEAKER) (test 1.39 See_Comment [Automat ed message] code = 370) The system [employer] generated this result transmitted ref erence range: [...] 60 pg/mL 0-100 (test code = 700) [id number] 13:55:09 Test Item Value Reference Range Interpretation Comments THYROID STIMULATING HORMONE 0.505 uIU/mL 0.350-5.500 (BEAKER) (test code = 772) T4, [id number] 13:55:09 Test Item Value Reference Range Interpretation Comments FREE T4 (BEAKER) (test code = 655) 0.82 ng/dL 0.90-1.80 L TROPONIN [id number] 13:54:30 Test Item Value Reference Range Interpretation [...] failure, acidosis, acute neurological disease, and persistent tachyarrhythmia.[id number] 13:54:01 Test Item Value Reference Range Interpretation Comments PHOSPHORUS (BEAKER) (test code = 3.9 mg/dL 2.5-4.5 604) [id number] 13:54:01 Test Item Value Reference Range Interpretation Comments MAGNESIUM (BEAKER) (test code = 1.5 mg/dL 1.5-3.0 627) LIPID [id number] 13:54:00 Test Item Value Reference Range Interpretation [...] 130-159 High 160-189 Very High >=190COMPREHENSIVE METABOLIC [id number] 13:54:00 Test Item Value Reference Range Interpretation [...] (test code = 347) EGFR (BEAKER) 28 Interpretatio n of eGFR (test code = [...] appl icable for dialysis patien ts TROPONIN [id number] 13:45:39 Test Item Value Reference Range Interpretation [...] and persistent tachyarrhythmia.RAD, CHEST, 1 VIEW, NON [id number] 04:46:00Reason for exam:->hypoxiaShould this be performed at the bedside?->[facility] 1945 Sex: FFINAL REPORT RAD, CHEST, 1 VIEW, NON DEPT INDICATION: hypoxia COMPARISON: Prior day's exam FINDINGS: Portable frontal view of the chest. IMPRESSION: Support Lines: Stable right chest tube. Lungs and pleura: Unchanged moderate to large right pleural effusion. Left lung remains clear. No pneum othorax. Heart and mediastinum: Stable contours. Additional findings: None. 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 INDICATION: 76-year-old female, follow-up pleural effusion. COMPARISON: Chest radiograph dated 01/08/2022. FINDINGS:The cardiac silhouette is normal in size. The thoracic vasculature is within normal limits. Right lower lobe relaxation atelectasis. Large right pleural effusion, similar to prior examination. No pneumothorax. No acute osseous abnormality. Visualized soft tissues are unremarkable. IMPRESSION:Large right pleural effusion, similar to prior examination. Signed: Castro Veras MDRepsaint [facility] Verified Date/Time: 01/19/2022 16:45:46 Reading Location: [facility] B1 C013X Ortho Consult Reading Room RAD, CHEST, 1 VIEW, NON [id number] 16:44:00 [facility] : 1945 Sex: FFINAL REPORT Gloria CabanN [id number] 1 [birth year] 46 Chest AP portable History provided:Shortness of breath [...] MDReport Verified Date/Time: 01/19/2022 16:44:54 Reading Location: [facility] [place] [address] , CHEST, 1 VIEW, NON [id number] 15:57:00 [facility] 1945 Sex: FFINAL [...] mass not ruled out. Signed: Nicolás Lopes Verified Date/Time: 01/19/2022 15:57:04 Reading Location: [facility] [place] [address] 1310.12 Electronically signed by: NICOLÁS LOPES MD on 203:57 PMRAD, CHEST, 1 VIEW, NON DEPT 2022-01-19 15:18:00 [facility] : 1945 Sex: FFINAL REPORT Steph CabanRN [id number] 1 22 46 Chest AP portable erect History provided: Right pleural effusion, status post right thoracentesis Significant pleural fluid has been removed on the right. A moderate amount of fluid remains, as the patient could not tolerate complete fluid evacuation. Atelectatic change in the right lower lobe. No pneumothorax. Left lung clear. Signed:Tejas Daniel Verified Date/Time: 01/19/2022 15:18:03 Reading Location: [facility] Diagnostic [place] [address] 1310.12 RAD, CHEST, 1 VIEW, NON DEPT 2022-01-19 14:24:00 [facility] : 1945 Sex: FFINAL REPORT INDICATION: Pleural effusion COMPARISON: 01/12/2022 TECHNIQUE: Single frontal view of the chest. Yo [id number] FINDINGS: Lines, tubes, and devices: Right pigtail [...] similar to prior exam Signed: Adelita Lazaro MDReport Verified Date/Time: 01/19/2022 14:24:47 Reading Location: [address] Reading Room RAD, CHEST, 1 VIEW, NON [id number] 14:19:00 [facility] : 1945 Sex: FFINAL REPORT [...] osseous abnormality. Upper abdomen:Unremarkable. Signed: Cali Degroot MDRepsaint [facility] Verified Date/Time: 01/19/2022 14:19:49 Reading Location: [facility] Diagnostic Imaging Reading Room [place] [address] CT, BRAIN, WITHOUT CONTRAST 2022-01-19 08:08:00 [facility] : 1945 Sex: FFINAL REPORT Patient name: RAFAEL Cabanedical record number: [id number] of 1945 CT, BRAIN, WITHOUT IV CONTRAST CLINICAL INDICATION: Poor memory COMPARISON: None TECHNIQUE: Noncontrast axial CT imaging of the brain and skull. DOSE REDUCTION: Dose modulation, iterative reconstr uction, and/or weight-based adjustment of the mA/kV was utilized to reduce the radiation dose to as low as reasonably achievable. FINDINGS:No intracranial hemorrhage, midline shift or mass effect. Remote infarcts of the basal ganglia. Scattered foci of hypoattenuation are present throughout the periventricular and subcortical white matter, and, although nonspecific by imaging, statistically representmild chronic microvascular ischemic changes in this age group. No hydrocephalus. Orbits are within normal limits. Prior bilateral lens surgery. No obstructive paranasal sinus disease. IMPRESSION: No acute intracranial findings If there is persistent clinical concern for intracranial pathology, MR exami nation is recommended for further characterization. Signed: Grace Thomas MDReport Verified Date/Time: 01/19/2022 08:08:13 Reading Location: [address] Reading Room Electronically signedby: GRACE THOMAS MD on 01/19/2022 08:08 AMCT, DRAINAGE, CHEST TUBE [id number] 07:59:00 [facility] : 1945 Sex: FFINAL REPORT Chanel [id number] chest tube insertionOctober 2021, [id number] Exam: CT guided chest tube insertion Clinical History: Possible empyema DOSE REDUCTION: The exams wasperformed according to the departmental dose-optimization program which includes automated exposure control, adjustment [...] local anesthetic. Under CT guidance, an 8.5 Syrian APDL was inserted into the right pleural space. The catheter was secured using 2-0 silk and connected to Pleur-evac. Hemostasis was achieved. The patient tolerated the procedure well without any adverse reactions. She left the department in stable condition. Complication: None immediate Impression: 1. CT-guided right chest tube insertion as described. Signed: Francois Simmons Verified Date/Time: 01/19/2022 07:59:36 Reading Location: [facility] Diagnostic Imaging Reading Room - [address] RAD, CHEST, 1 VIEW, NON [id number] 05:01:00Reason for exam:->hypoxiaShould this be performed at the bedside?->Yes [facility] : 1945 Sex: FFINAL REPORT RAD, CHEST, 1 VIEW, NON DEPT INDICATION: hypoxia COMPARISON: 01/16/2022 FINDINGS: Portable frontal view of the chest. IMPRESSION: Support Lines: Stable right chest tube. Lungs and pleura: Unchanged moderate to large right pleural effusion. No new airspace consolidation. No pneumothorax. Heart and mediastinum: Stable contours. Additional findings: None. 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 (WITHOUT FERRITIN)2022-01-18 09:26:44 Test Item Value Reference Range Interpretation Comments IRON (BEAKER) (test code = 547) 11.0 ug/dL 40.0-160.0 L TOTAL IRON BINDING CAPACITY 146 ug/dL 250-450 L (BEAKER) (test code = 769) IRON % SATURATION (2) (BEAKER) 8 % 20-55 L (test code = 2590) [employer] Riveting Machine Operator ID - FER GCOMPREHENSIVE METABOLIC [id number] 05:36:38 Test Item Value Reference Range Interpretation [...] not appl icable for dialysis patien ts Metal Riveting Machine Operator ID - CHOPZCBC W/PLT COUNT & AUTO [id number] 05:21:44 Test Item Value Reference Range Interpretation [...] = 2801) CBC W/PLT COUNT & AUTO [id number] 07:12:02 Test Item Value Reference Range Interpretation [...] (BEAKER) (test code = 2801) COMPREHENSIVE METABOLIC [id number] 05:22:01 Test Item Value Reference Range Interpretation [...] = 353) ALT (SGPT) 6 U/L 5-50 (TIMI) (test code = 347) EGFR (TIMI) 71 Interpretatio n of eGFR (test code [...] not appl icable for dialysis patien ts Metal Riveting Machine Operator ID - CHOPZRAD, CHEST, 1 VIEW, NON [id number] 01:34:00 [facility] : 1945 Sex: FFINAL REPORT [...] Underlying mass cannot be excluded. Signed: William Carcamoeport Verified Date/Time: 01/16/2022 01:34:29 POC glucose 2021-12-18 15:44:00 Test Item Value Reference Range Interpretation Comments POC glucose (test 99 mg/dL 65-99 Metal Riveting Machine Operator N dary: Drake code = 24267-2) AidenDevice ID: [id number] [facility] [id number] 15:44:00 Test Item Value Reference Range Interpretation Comments POC glucose (test 99 mg/dL 65-99 Metal Riveting Machine Operator N dary: Drake code = 87545-6) [employer]iden[employer] ID: [id number] [facility] [id number] 15:44:00 Test Item Value Reference Range Interpretation Comments POC glucose (test 99 mg/dL 65-99 Metal Riveting Machine Operator N dary: Drake code = 76518-9) [employer]idenDevice ID: [id number] [facility] RNA [Presence] in Respiratory specimen by SABA with probe [id number] 17:21:32 Test Item Value Reference Range Interpretation Comments SARS-CoV-2 (COVID-19) RNA Not detected [Presence] in Respiratory specimen by SABA with probe detection (test code = 64949-9) Whether patient is employed in a Unknown healthcare setting (test code = 86085-9) Whether the patient has symptoms Unknown related to condition of interest (test code = 08957-0) Whether the patient was Unknown hospitalized for condition of interest (test code = 98877-8) Whether the patient was admitted Unknown to intensive care unit (ICU) for condition of interest (test code = 98101-4) Whether patient resides in a Unknown congregate care setting (test code = 54209-7) status (test code = Unknown 13592-0) Date and time of symptom onset Unknown (test code = 21860-1) [facility] [id number] 14:35:50 Test Item Value Reference Range Interpretation Comments Case number (test code = [id number]) Surgical pathology See link below for report (test code = PDF Lab Report 1617) Result status (test code This is Final Report = [id number]) for [id number] [facility] W Auto Differential panel - [id number] 00:00:00 Test Item Value Reference Range Interpretation [...] = 706-2) immature cells (test code = mmd unit teacher immature cells) Neutrophils [#/volume] in Blood 7.3 [...] Blood by Automated count (test code = 55161-7) Immature granulocytes 0.0 x10e3/uL 0.0-0.1 [#/volume] in Blood by Automated count (test code = 09101-6) Nucleated erythrocytes/100 mmd unit teacher leukocytes [Ratio] in Blood by Automated count (test code = 20947-4) Morphology [Interpretation] in mmd unit teacher Blood Narrative (test code = 61247-7) [facility] 2000 [facility] - Serum or [id number] 00:00:00 Test Item Value Reference Range Interpretation [...] (test code = 2075-0) Carbon dioxide, total 25 mmol/L 20-29 [Moles/volume] in Serum or Plasma (test code = 2027-9) Calcium [Mass/volume] in Serum 9.8 mg/dL 8.7-10.3 or Plasma (test code = 62509-2) Protein [Mass/volume] in Serum 7.5 g/dL 6.0-8.5 or Plasma (test code = 2885-2) Albumin [Mass/volume] in Serum 3.9 g/dL 3.7-4.7 or Plasma (test code = 1751-7) Globulin [Mass/volume] in 3.6 g/dL 1.5-4.5 Serum by calculation (test code = 88561-9) Albumin/Globulin [Mass Ratio] 1.1 1.2-2.2 L in Serum or Plasma (test code = 1759-0) Bilirubin.total [Mass/volume] 0.2 mg/dL 0.0-1.2 in Serum or Plasma (test code = 1975-2) Alkaline phosphatase 85 IU/L 44-121 [Enzymatic activity/volume] in Serum or Plasma (test code = 6768-6) Aspartate aminotransferase 17 IU/L 0-40 [Enzymatic activity/volume] in Serum or Plasma (test code = 1920-8) Alanine aminotransferase 12 IU/L 0-32 [Enzymatic activity/volume] in Serum or Plasma (test code = 1742-6) [facility] ClinicsUrinalysis complete W Reflex Culture panel - [id number] 00:00:00 Test Item Value Reference Range Interpretation [...] Test negative negative/trace strip (test code = 47792-2) Glucose [Presence] in Urine by Test negative negative strip (test code = 55612-9) Ketones [Presence] in Urine by Test negative negative strip (test code = 2514-8) Hemoglobin [Presence] in Urine by negative negative Test strip (test code = 5794-3) Bilirubin.total [Presence] in Urine negative negative by Test strip (test code = 5770-3) Urobilinogen [Mass/volume] in Urine 0.2 mg/dL 0.2-1.0 by Test strip (test code = 67125-4) Nitrite [Presence] in Urine by Test negative negative strip (test code = 5802-4) Microscopic observation mmd unit teacher [Identifier] in Urine sediment by Light microscopy (test code = 93146-9) Leukocytes [#/area] in Urine 6-10 0-5 A sediment by Microscopy high power field (test code = 5821-4) Erythrocytes [#/area] in Urine 0-2 0-2 sediment by Microscopy high power field (test code = 65451-4) Epithelial cells [#/area] in Urine 0-10 0-10 sediment by Microscopy high power field (test code = 5787-7) Epithelial cells.renal [#/area] in mmd unit teacher Urine sediment by Microscopy high power field (test code = 38301-2) Casts [Presence] in Urine sediment none seen none seen by Light microscopy (test code = 38102-7) Casts [Type] in Urine sediment by mmd unit teacher Light microscopy (test code = 99315-2) Unidentified crystals [Presence] in mmd unit teacher Urine sediment by Light microscopy (test code = 5783-6) Crystals [type] in Urine sediment mmd unit teacher by Light microscopy (test code = 5782-8) Mucus [Presence] in Urine sediment mmd unit teacher by Light microscopy (test code = 8247-9) Bacteria [#/area] in Urine sediment none seen none seen/few by Microscopy high power field (test code = 5769-5) Yeast [#/area] in Urine sediment by mmd unit teacher Microscopy high power field (test code = 5822-2) Trichomonas vaginalis [Presence] in mmd unit teacher Urine sediment by Light microscopy (test code = 5813-1) Urine sediment comments by Light mmd unit teacher microscopy Narrative (test code = 04154-0) urinalysis reflex (test code = comment urinalysis reflex) Bacteria identified in Urine by comment A Culture (test code = 630-4) [facility] + TIBC + ferritin, [id number] 00:00:00 Test Item Value Reference Range Interpretation [...] Serum or Plasma (test code = 2502-3) [facility] 125 [Units/volume] in Serum or Plasma 2021-08-06 00:00:00 Test Item Value Reference Range Interpretation Comments Cancer Ag 125 [Units/volume] in 12.1 U/mL 0.0-38.1 Serum or Plasma (test code = 41734-2) Report (test code = 93048-0) . [facility]bergErythrocyte sedimentation [id number] 00:00:00 Test Item Value Reference Range Interpretation Comments Erythrocyte sedimentation rate by 110 mm/HR 0-40 H Westergren method (test code = 4537-7) [facility] reactive protein [Mass/volume] in Serum or [id number] 00:00:00 Test Item Value Reference Range Interpretation Comments C reactive protein [Mass/volume] in 27 mg/L 0-10 H Serum or Plasma (test code = 1988-) [facility] W Differential panel, method unspecified - [id number] 00:00:00 Test Item Value Reference Range Interpretation [...] = 706-2) immature cells (test code = mmd unit teacher immature cells) Neutrophils [#/volume] in Blood 8.4 [...] Blood by Automated count (test code = 39145-2) Immature granulocytes 0.1 x10e3/uL 0.0-0.1 [#/volume] in Blood by Automated count (test code = 12389-8) Nucleated erythrocytes/100 mmd unit teacher leukocytes [Ratio] in Blood by Automated count (test code = 40568-5) Morphology [Interpretation] in mmd unit teacher Blood Narrative (test code = 48959-1) [facility] 2000 panel - Serum or [id number] 00:00:00 Test Item Value Reference Range Interpretation [...] (test code = 5-0) Carbon dioxide, total 23 mmol/L 20-29 [Moles/volume] in Serum or Plasma (test code = 2027-9) Calcium [Mass/volume] in Serum 10.0 mg/dL 8.7-10.3 or Plasma (test code = 48419-6) Protein [Mass/volume] in Serum 7.3 g/dL 6.0-8.5 or Plasma (test code = 2885-2) Albumin [Mass/volume] in Serum 3.9 g/dL 3.7-4.7 or Plasma (test code = 1751-7) Globulin [Mass/volume] in 3.4 g/dL 1.5-4.5 Serum by calculation (test code = 18080-2) Albumin/Globulin [Mass Ratio] 1.1 1.2-2.2 L in [...] Serum or Plasma (test code = 1742-6) [facility] + TIBC + ferritin, [id number] 00:00:00 Test Item Value Reference Range Interpretation [...] Serum or Plasma (test code = 2502-3) [facility]berg[facility] + T4, [id number] 00:00:00 Test Item Value Reference Range Interpretation Comments Thyrotropin [Units/volume] in 0.232 uIU/mL 0.450-4.500 L Serum or Plasma by Detection limit <= 0.005 mIU/L (test code = 31267-0) Thyroxine (T4) [Mass/volume] in 7.2 ug/dL 4.5-12.0 Serum or Plasma (test code = 3026-2) [facility]bergFolate+Cyanocobalamin [Interpretation] in Serum or [id number] 00:00:00 Test Item Value Reference Range Interpretation Comments Cobalamin (Vitamin B12) [Mass/volume] >2000 232-1245 H in Serum or Plasma (test code = 2132-9) Folate [Mass/volume] in Serum or Plasma >20.0 >3.0 (test code = 2284-8) [facility]25-Hydroxyvitamin D3+25-Hydroxyvitamin D2 [Mass/volume] in Serum or [id number] 00:00:00 Test Item Value Reference Range Interpretation Comments 25-Hydroxyvitamin 84.5 NG/mL 30.0-100.0 D3+25-Hydroxyvitamin D2 [Mass/volume] in Serum or Plasma (test code = 47262-7) [facility]berg[facility] W Differential panel, method unspecified - [id number] 00:00:00 Test Item Value Reference Range Interpretation [...] = 706-2) immature cells (test code = mmd unit teacher immature cells) Neutrophils [#/volume] in Blood 8.4 [...] Blood by Automated count (test code = 40771-4) Immature granulocytes 0.1 x10e3/uL 0.0-0.1 [#/volume] in Blood by Automated count (test code = 78780-3) Nucleated erythrocytes/100 mmd unit teacher leukocytes [Ratio] in Blood by Automated count (test code = 09400-0) Morphology [Interpretation] in mmd unit teacher Blood Narrative (test code = 89275-1) [facility] 2000 panel - Serum or [id number] 00:00:00 Test Item Value Reference Range Interpretation [...] mg/dL 8.7-10.3 or Plasma (test code = 91894-1) Protein [Mass/volume] in Serum 7.3 g/dL 6.0-8.5 or Plasma (test code = 2885-2) Albumin [Mass/volume] in Serum 3.9 g/dL 3.7-4.7 or Plasma (test code = 1751-7) Globulin [Mass/volume] in 3.4 g/dL 1.5-4.5 Serum by calculation (test code = 00137-1) Albumin/Globulin [Mass Ratio] 1.1 1.2-2.2 L in [...] Serum or Plasma (test code = 1742-6) [facility] + TIBC + ferritin, [id number] 00:00:00 Test Item Value Reference Range Interpretation [...] Serum or Plasma (test code = 2502-3) [facility]berg[facility]SH + T4, [id number] 00:00:00 Test Item Value Reference Range Interpretation Comments Thyrotropin [Units/volume] in 0.232 uIU/mL 0.450-4.500 L Serum or Plasma by Detection limit <= 0.005 mIU/L (test code = 79443-1) Thyroxine (T4) [Mass/volume] in 7.2 ug/dL 4.5-12.0 Serum or Plasma (test code = 3026-2) [facility]bergFolate+Cyanocobalamin [Interpretation] in Serum or [id number] 00:00:00 Test Item Value Reference Range Interpretation Comments Cobalamin (Vitamin B12) [Mass/volume] >2000 232-1245 H in Serum or Plasma (test code = 2132-9) Folate [Mass/volume] in Serum or Plasma >20.0 >3.0 (test code = 2284-8) [facility]25-Hydroxyvitamin D3+25-Hydroxyvitamin D2 [Mass/volume] in Serum or [id number] 00:00:00 Test Item Value Reference Range Interpretation Comments 25-Hydroxyvitamin 84.5 NG/mL 30.0-100.0 D3+25-Hydroxyvitamin D2 [Mass/volume] in Serum or Plasma (test code = 16611-9) [facility]bergHemoglobin A1c/Hemoglobin.total in Blood 2020-12-25 00:00:00 Test Item Value Reference Range Interpretation Comments Hemoglobin A1c/Hemoglobin.total in 5.8 % 4.8-5.6 H Blood (test code = 4548-4) [facility] + T4, [id number] 00:00:00 Test Item Value Reference Range Interpretation Comments Thyrotropin [Units/volume] in 0.014 uIU/mL 0.450-4.500 L Serum or Plasma by Detection limit <= 0.005 mIU/L (test code = 56352-7) Thyroxine (T4) free 1.22 NG/dL 0.82-1.77 [Mass/volume] in Serum or Plasma (test code = 3024-7) [facility] W Auto Differential panel - [id number] 00:00:00 Test Item Value Reference Range Interpretation [...] = 706-2) immature cells (test code = mmd unit teacher immature cells) Neutrophils [#/volume] in Blood 5.5 [...] Blood by Automated count (test code = 17784-1) Immature granulocytes 0.0 x10e3/uL 0.0-0.1 [#/volume] in Blood by Automated count (test code = 80934-0) Nucleated erythrocytes/100 mmd unit teacher leukocytes [Ratio] in Blood by Automated count (test code = 15214-3) Morphology [Interpretation] in mmd unit teacher Blood Narrative (test code = 35796-3) [facility] [facility] 2000 panel - Serum or [id number] 00:00:00 Test Item Value Reference Range Interpretation [...] by Creatinine-based formula (CKD-EPI) (test code = 83893-0) Glomerular filtration 89 mL/min/1.73 >59 rate/1.73 sq M.predicted among blacks [Volume Rate/Area] in Serum, Plasma or Blood by Creatinine-based formula (CKD-EPI) (test code = 17074-9) Urea nitrogen/Creatinine [Mass 16 12-28 Ratio] in Serum or Plasma (test code = 3097-3) Sodium [Moles/volume] in Serum 140 mmol/L 134-144 or Plasma (test code = 2951-2) Potassium [Moles/volume] in 3.5 mmol/L 3.5-5.2 Serum or Plasma (test code = 2823-3) Chloride [Moles/volume] in 100 mmol/L 96-106 Serum or Plasma (test code = 2075-0) Carbon dioxide, total 25 mmol/L 20-29 [Moles/volume] in Serum or Plasma (test code = 2027-9) Calcium [Mass/volume] in Serum 9.7 mg/dL 8.7-10.3 or Plasma (test code = 40553-4) Protein [Mass/volume] in Serum 7.4 g/dL 6.0-8.5 or Plasma (test code = 2885-2) Albumin [Mass/volume] in Serum 4.3 g/dL 3.7-4.7 or Plasma (test code = 1751-7) Globulin [Mass/volume] in 3.1 g/dL 1.5-4.5 Serum by calculation (test code = 43563-6) Albumin/Globulin [Mass Ratio] 1.4 1.2-2.2 in Serum or Plasma (test code = 1759-0) Bilirubin.total [Mass/volume] 0.4 mg/dL 0.0-1.2 in Serum or Plasma (test code = 1975-2) Alkaline phosphatase 84 IU/L 44-121 [Enzymatic activity/volume] in Serum or Plasma (test code = 6768-6) Aspartate aminotransferase 21 IU/L 0-40 [Enzymatic activity/volume] in Serum or Plasma (test code = 1920-8) Alanine aminotransferase 16 IU/L 0-32 [Enzymatic activity/volume] in Serum or Plasma (test code = 1742-6) [facility] Clinics[facility]inal[facility] complete W Reflex Culture panel - [id number] 00:00:00 Test Item Value Reference Range Interpretation [...] negative negative/trace Test strip (test code = 33573-0) Glucose [Presence] in Urine (test negative negative code = 2349-9) Ketones [Presence] in Urine by negative negative Test strip (test code = 2514-8) Hemoglobin [Presence] in Urine by negative negative Test strip (test code = 5794-3) Bilirubin.total [Presence] in negative negative Urine by Test strip (test code = 5770-3) Urobilinogen [Mass/volume] in 0.2 mg/dL 0.2-1.0 Urine by Test strip (test code = 30106-6) Nitrite [Presence] in Urine by negative negative Test strip (test code = 5802-4) Microscopic observation see below: [Identifier] in Urine sediment by Light microscopy (test code = 68969-2) Leukocytes [#/area] in Urine none seen 0-5 sediment by Microscopy high power field (test code = 5821-4) Erythrocytes [#/area] in Urine 0-2 0-2 sediment by Microscopy high power field (test code = 87861-0) Epithelial cells [#/area] in Urine none seen 0-10 sediment by Microscopy high power field (test code = 5787-7) Epithelial cells.renal [#/area] in mmd unit teacher Urine sediment by Microscopy high power field (test code = 42200-5) Casts [Presence] in Urine sediment none seen none seen by Light microscopy (test code = 48084-1) Casts [Type] in Urine sediment by mmd unit teacher Light microscopy (test code = 85982-9) Unidentified crystals [Presence] mmd unit teacher in Urine sediment by Light microscopy (test code = 5783-6) Crystals [type] in Urine sediment mmd unit teacher by Light microscopy (test code = 5782-8) Mucus [Presence] in Urine sediment mmd unit teacher by Light microscopy (test code = 8247-9) Bacteria [#/area] in Urine none seen none seen/few sediment by Microscopy high power field (test code = 5769-5) Yeast [#/area] in Urine sediment mmd unit teacher by Microscopy high power field (test code = 5822-2) Trichomonas vaginalis [Presence] mmd unit teacher in Urine sediment by Light microscopy (test code = 5813-1) Urine sediment comments by Light mmd unit teacher microscopy Narrative (test code = 65196-6) urinalysis reflex (test code = comment urinalysis reflex) [facility]icsLip[facility] 1996 panel - Serum or [id number] 00:00:00 Test Item Value Reference Range Interpretation [...] or Plasma by calculation (test code = 68909-0) Cholesterol in LDL [Mass/volume] in 93 mg/dL 0-99 Serum or Plasma by calculation (test code = 78826-9) Laboratory comment [Text] in Report mmd unit teacher Narrative (test code = 54679-9) [facility]Cyanocobalamin [Interpretation] in Serum or [id number] 00:00:00 Test Item Value Reference Range Interpretation Comments Cobalamin (Vitamin B12) >2000 232-1245 H [Mass/volume] in Serum or Plasma (test code = 2132-9) Folate [Mass/volume] in Serum or 19.7 NG/mL >3.0 Plasma (test code = 2284-8) [facility]25-Hydroxyvitamin D3+25-Hydroxyvitamin D2 [Mass/volume] in Serum or [id number] 00:00:00 Test Item Value Reference Range Interpretation Comments 25-Hydroxyvitamin 71.4 NG/mL 30.0-100.0 D3+25-Hydroxyvitamin D2 [Mass/volume] in Serum or Plasma (test code = 20145-6) [facility] W Auto Differential panel - [id number] 00:00:00 Test Item Value Reference Range Interpretation [...] = 706-2) immature cells (test code = mmd unit teacher immature cells) Neutrophils [#/volume] in Blood 4.7 [...] Blood by Automated count (test code = 67532-0) Immature granulocytes 0.0 x10e3/uL 0.0-0.1 [#/volume] in Blood by Automated count (test code = 75333-2) Nucleated erythrocytes/100 mmd unit teacher leukocytes [Ratio] in Blood by Automated count (test code = 75700-1) Morphology [Interpretation] in mmd unit teacher Blood Narrative (test code = 87958-3) [facility] ClinicsPT and aPTT panel - Platelet poor plasma by Coagulation [id number] 00:00:00 Test Item Value Reference Range Interpretation Comments INR in Platelet poor plasma by 1.0 0.9-1.2 Coagulation assay (test code = 6301-6) Prothrombin time (PT) (test code = 10.4 sec 9.1-12.0 5902-2) aPTT in Platelet poor plasma by 24 sec 24-33 Coagulation assay (test code = 71898-7) [facility] panel - Serum or [id number] 00:00:00 Test Item Value Reference Range Interpretation [...] or Plasma by calculation (test code = 58817-2) Cholesterol in LDL [Mass/volume] in 145 mg/dL 0-99 H Serum or Plasma by calculation (test code = 08505-3) Laboratory comment [Text] in Report mmd unit teacher Narrative (test code = 39630-6) [facility]berg[facility]roid panel, [id number] 00:00:00 Test Item Value Reference Range Interpretation Comments Thyrotropin [Units/volume] in 0.176 uIU/mL 0.450-4.500 L Serum or Plasma by Detection limit <= 0.005 mIU/L (test code = 08640-8) Thyroxine (T4) [Mass/volume] in 7.2 ug/dL 4.5-12.0 Serum or Plasma (test code = 3026-2) [facility]25-Hydroxyvitamin D3+25-Hydroxyvitamin D2 [Mass/volume] in Serum or [id number] 00:00:00 Test Item Value Reference Range Interpretation Comments 25-Hydroxyvitamin 60.7 NG/mL 30.0-100.0 D3+25-Hydroxyvitamin D2 [Mass/volume] in Serum or Plasma (test code = 65266-3) [facility] KNEE LEFT WO [id number] 14:58:54 HISTORY: Persistent chronic pain in the [...] body ofthe medial meniscus, extending into posterior horn.[facility] KNEE 3 VW [id number] 19:41:38 1. ?No fracture. RL: 1105 HISTORY: [...] in the patellofemoral compartment.IMPRESSION1. No fracture.RL: 1105 [facility] Date/Time Note Provider Source 2022-05-31 12:03:33-00:00 CECIL DELACRUZ [facility] OPERATIVE/PROCEDURE REPORT CABANCHANEL FACILITY: [facility] Billing #: [id number] Room: MR #: [id number] : 1945 DATE OF PROCEDURE: 01/15/2022 SURGEON: Cecil Delacruz MD PREOPERATIVE DIAGNOSIS: Right pleural effusion. POSTOPERATIVE DIAGNOSIS: Right pleural effusion. OPERATIVE PROCEDURE: Right thoracoscopy with ple ural biopsy. TRANSIT WORKER: SHAHRZAD Garcia. ANESTHESIA: General endotracheal. COMPLICATIONS: None. BLOOD LOSS: 10 mL. FINDINGS: Pleural implants, either infectious or malignant, fluid and path are pending. SUMMARY: [facility]-mentioned procedure. OPERATIVE NOTE: After consent was obtained from the patient, the patient was taken to the operating room, [facility] in supine position. After induction of general endotrachea l anesthesia and routine prep and drape of the right chest, a small incision was made. The thoracoscope was inserted into the right chest. There was noted to be a pleural effusion which w as aspirated. There were noted to be pleural implants along th e lining of the right chest. These were either infectious or pos sibly malignant. Biopsies were taken and sent to patho logy for permanent section. A 36-Syrian chest tube was pl aced. The lung was allowed to be reinflated. The scope was removed. The patient tolerated procedure well. Needle count, sponge counts, and instrument counts were all correct. DSB/MODL /[id number] Electronically signed by: CECIL DELACRUZ at 20 18-06-04 09:55:21.000 2022-03-05 22:46:19-00:00 KIYA CRANE [facility] OPERATIVE/PROCEDURE REPORT CABANCHANEL FACILITY: [facility] Billing #: [id number] Room: [address] [place] [address] MR #: [id number] : 1945 DATE OF PROCEDURE: 03/04/2022 SURGEON: Kiya Crane MD PREOPERATIVE DIAGNOSES: 1. Right pleural empyema status post right thora coscopic washout and drain placement. 2. Hypertension. 3. Gastroesophageal reflux disease. 4. Anemia. POSTOPERATIVE DIAGNOSES: 1. Right pleural empyema status post right thora coscopic washout and drain placement. 2. Hypertension. 3. Gastroesophageal reflux disease. 4. Anemia. NAME OF OPERATION: 1. Exploratory laparoscopy, peritoneal biopsies, and peritoneal washings. 2. Right thoracoscopic converted to open right t otal lung decortication and washout. TRANSIT WORKER: Stefan Avalos MD (3rd year [employer] resident). SPECIMENS: 1. Right upper quadrant peritoneal biopsy. 2. Left upper quadrant peritoneal biopsy. 3. Peritoneal washings for cytology. 4. Right pleural fluid for Gram stain and cultur e. 5. Right pleural abscess cavity for Gram stain a nd culture. 6. Right hemidiaphragm rind for histopathology. 7. Right parietal pleura for histopathology. ANESTHESIA: General endotracheal anesthesia. ESTIMATED BLOOD LOSS: 1300 mL. COMPLICATIONS: None. DRAINS: 1. A 32-Syrian angled right chest tube (the ante rior chest tube) directed posteriorly and dorsally on the d iaphragm and into the costophrenic sulcus. 2. A 28-Syrian straight chest tube (the middle r ight chest tube) directed anteriorly and towards the apex. 3. A 28-Syrian straight right chest tube (the po sterior chest tube) directed posterior and towards the apex. FLUIDS: 1800 mL crystalloid. OPERATIVE FINDINGS: 1. Exploratory laparoscopy was notable for adhes ions between the right lobe of the liver and the right hemidi aphragm. Other than a subtle polypoid lesion in the right upper quadrant, no abnormalities were noted. The more subtle nodule was noted in the left upper quadrant, which was also biopsied . The liver was inspected and noted to be normal. There was no obvious evidence of diffuse peritoneal carcinomatosis. W e collected peritoneal washings for cytology. 2. Stage III empyema and loculated fluid collect ion between the right lower lobe and right hemidiaphragm. 3. Though I began through a total lung decortica tion through a right thoracoscopic approach, ultimately convert ed to an open approach due to calcific fibrosis between the ri ght lower lobe and the abscess cavity. OPERATIVE INDICATIONS: Ms. Caban is a 76-year-o ld woman, who underwent a laparoscopic cholecystectomy in the summer of 2020. Since then, she has failed to thrive, noting fa tigue, anorexia, and associated 60 pounds weight loss i n the last 6-8 months. She has been evaluated by her local [facility] providers of express concern about the potential for an undiagnosed malignancy. She has undergone a [facility] evaluation including a PET-CT scan, which by rep ort demonstrated findings concerning for peritoneal carcinomatosis. She was also found to have a moderate right ple ural effusion, underwent a thoracentesis followed by a right th oracoscopic washout on January 17. She was discharged home five weeks ago on an empiric course of Augmentin and vorico nazole as her sputum culture was positive for yeast. One week after completing antibiotics, she awoke on February at 3:00 a.m. with diaphoresis and purulent drainage from her right chest tube site. She was transferred to [facility] for further evaluation and treatm ent. A chest x-ray followed by a chest CT scan was obtained, which demonstrated a loculated pleural effusion in the right hemithorax with enhancement of the visceral and parietal pleura, consistent with empyema. As expected thi s was a chronic process, which failed simple washout. I felt she would be best served by a total lung decortication rat her than catheter-based therapies. I also plan on an expl oratory laparoscopy in the same anesthesia setting, give n her 18-month history of failure to thrive and suspected perit amezcua disease. After discussing the risks and benefits of the p rocedure, the patient provided informed consent for a flexible bronchoscopy, flexible esophagogastroduodenoscopy, exploratory laparoscopy and biopsies, and right thoracoscopic (possible open) total lung decortication and washout. DESCRIPTION OF PROCEDURE: On 03/04/2022, the christ iemerle was brought to the operating room and placed supine on the operating table. Following an uneventful inducti on of general anesthesia, she was intubated with a double-lume n endotracheal tube without incident. A radial arterial line an d a right internal jugular vein central venous catheter we re placed by the anesthesia team. A Renteria catheter was insert ed. Pneumatic compression devices were placed on the lower ext remities. A foot board was placed. Both arms were left abduc warren. All bony prominences were well padded. She received Ancef for intravenous antibiotic prophylaxis and 5000 unit s subcutaneous heparin for DVT prophylaxis. Her abdomen was pre pped and draped in usual sterile fashion. Prior to beginn ing the operation, a time-out was conducted with all mem bers of the surgical team present. I began by performing exploratory laparoscopy. A fter infiltrating the skin with local anesthetic, I made a stab in cision a fingerbreadth below the left costal margin. A Ve ress needle was inserted and pneumoperitoneum to 15 mmHg was achieved without incident. I then made a 5 mm transverse incision in the left mid abdomen after infiltrating the skin with local anesthetic and used a 5 mm Optiview trocar to en ter the peritoneal cavity without incident. An another 5 mm port was placed in the right abdomen. The abdomen was exp lored. There was no ascites. I noted the adhesions between th e right lobe of the liver and the right hemidiaphragm. Other than changes consistent with fatty liver disease, the liver a ppeared normal. The omentum was normal. I noted a polypoid lesi on in the right upper quadrant at the base of the right he midiaphragm. The nodule was removed with a biopsy forceps. He mostasis was achieved with touch cautery. There was also a mo re subtle nodule in the left upper quadrant at the base of left hemidiaphragm, which was also biopsied. No other peritoneal abnormalities were noted. The abdomen was filled with 3 L of saline. Abdomen was jostled. The fluid was recol lected for peritoneal cytology. The abdomen was inspected. Hemostasis was assured. Pneumoperitoneum was evacuated. The ports were removed. The subcutaneous tissues were closed us ing 2-0 Vicryl suture. Skin incisions were closed using 4-0 Mon ocryl subcuticular sutures. Steri-Strips and dry steri le dressings were applied. The patient was repositioned in the left lateral decubitus position. The table was jackknifed. All bony pro minences were well padded. Her right chest was prepped and ynes ped in the usual sterile fashion. We re-incised her prior r ight chest tube site, which had been draining purulent appe aring fluid. We carefully advanced a camera through the tract and noted that, with diaphragmatic elevation associated with her empyema, the tube was below the diaphragm. I made another 15 mm open access inci pat approximately the 4th intercostal space in the anterior axilla ry line. The pleural space was entered without incident throu gh this incision via a cutdown technique. Blunt finger d issection to create working domain between the lung and ch est wall, which were adhesed to one another. A thoracoscope was inserted. Using blunt Kittner dissection, the lung was portillo en down off the lateral chest wall. As working domain was create d we placed another 5 mm port in the interspace immediately below the tip of the scapula and another 1.5 cm open access incision cephalad to the initial chest tube site and just above the right hemidia phragm. I worked up between these ports, I completely mobi lized the lung around the hilum beginning laterally, continued posterolaterally toward the apex, reflecting the apex of the lung to the level of the azygos vein and continu ed mobilizing the lung off the middle mediastinum. There was n o significant visceral pleural peel overlying the upper and mi ddle lobes. I turned my attention to the right lower hemithora x. There was a chronic-appearing abscess cavity. We drained carline roximately 250 mL of purulent fluid. The fluid was sampled and sent to microbiology for Gram stain and culture. The space was swabbed for aerobic and anaerobic culture. It wa s organized and mature debris within the abscess cavity, whi ch was decorticated. I proceeded to mobilize the lung off the posterior chest wall cephalad to the abscess cavity, off the ape x until it had been reflected to the level of the azygos vein, and along the middle mediastinu m. I turned my attention back to the abscess cavity. Surrounding the abscess c avity, there were dense calcific fibrosis, which impaired my ability to maximally mobilize the right lower lobe left hemidiaphragm. Consequentl y, I elected to convert to an open approach. A small posterolateral thoracotomy incision was made. The incision was carried down through the subcutaneous tissue s with electrocautery. The latissimus was divided. The serratus was divided. We entered through the 6th intercostal space and shiggled the 6th rib posteriorly near the longit udinal ligament. A Finochietto chest c engineer was placed. I mike ously working through this calcific fibrosis in the right lowe r hemithorax. The lung was freed from its attachments to the a bscess cavity and was mobilized to the level of the hilar reflection. The calcific tissue wa s surrounding the cavity was debrided. The right hemidiaphragm was somewhat etrapped cephalad and was freed from its lateral attachments until it returned t o its normal position. The chest was irrigated. Hemostasis was assured. A 32-Syrian angled chest tube was advanced through the infer ior port site and directed along the diaphragm and costop hrenic sulcus. A 28-Syrian straight chest tube was advanced thr ough a stab incision posterior to the camera port and direct ed anteriorly and towards the apex. An another 28-Syrian strai ght chest tube was advanced through a stab incision posterior t o the anterior tube and directed posterior and towards the apex . The chest tube was secured to the skin using #2 silk sutur e. A #2 silk vertical mattress tie-down sutures placed in the mid-point of the incision. The chest was reapproximated with #1 V icryl pericostal sutures. Prior to tying down the sutu res, the lung was expanded under direct vision and noted to ne fifi completely fill the pleural space. The pericostal sutures w ere tied down. The serratus was closed using a running 0 Vicry l suture. Latissimus dorsi was closed using a running 0 Vi cryl suture. The subcutaneous tissues were closed using 2-0 V icryl suture. Skin incisions were closed using 4-0 Monocryl persaud bcuticular suture. Steri-Strips and dry sterile dressings w ere applied. The double endotracheal tube was exchanged for a single-lumen endotracheal tube. Given the time a day of the o peration with the patient intubated overnight. She was transfe rred to the Thoracic Surgery Intensive Care Unit intubated a nd in stable condition. MEDICARE ATTESTATION STATEMENT: I, Dr. Kiya Hazel , was the attending physician. I was present for the entir e operation. Please note Dr. Avalos is a General Surgery reside nt, who participated in this operation.. SSG/MODL /[id number] 2022-01-17 00:50:19-00:00 [facility] Progress note CHANEL CABAN FACILITY: [facility] Billing #: [id number] Room: [address] [place] [address] MR #: [id number] : 1945 DATE : 01/16/2022 REQUESTING PHYSICIAN: WAX ENGRAVER: Agus Oliver MD Infectious Disease progress note SUBJECTIVE: The patient is still feeling the justine e cough and dyspnea, though are minimal. Right chest pain is not significant. Tolerating her antibiotic. No rash. No diarrhea. PHYSICAL EXAMINATION: VITAL SIGNS: Blood pressure 137/65, heart rate 7 4, temp 97.3. GENERAL: The patient not in acute distress. Sargeant thing without difficulty. HEART: Regular. LUNGS: Show decreased rales. ABDOMEN: Soft, nontender. EXTREMITIES: No edema. No rash. NEUROLOGIC: Awake, alert. LABORATORY DATA: Showed potassium 4.8, creatinin e 0.7. White blood count 10152. Chest x-ray showed right lowe r lobe pneumonia. ASSESSMENT AND PLAN: 1. Right pleural effusion with underlying right lower lobe pneumonia, status post chest tube placement. 2. Large right liver tumor. 3. Resistant leukocytosis. RECOMMENDATIONS: 1. Continue Zosyn IV for the time being. 2. I would like to add voriconazole for the time being for possible histoplasmosis or other fungal infectio n. 3. Follow up on the pathology of the pleural bio psy. 4. Discussed with the Pulmonary attending. 5. We will follow the patient closely. NTK/MODL /[id number] 2022-01-14 02:47:53-00:00 [facility] PROGRESS NOTE CHANEL CABAN FACILITY: [facility] Billing #: [id number] Room: [address] [place] [address] MR #: [id number] : 1945 PHYSICIAN: Agus Oliver MD ADMISSION DATE: 12/28/2021 DATE: 01/13/2022 SUBJECTIVE: The patient is feeling better. Less cough and less dyspnea. No significant abdominal pain anym ore. No fever. No chills. No rash. No diarrhea. Tolerati ng her current antimicrobials, currently on Zosyn IV. LABORATORY DATA: Her workup today showed white b lood count 25,000, hemoglobin 9.7, creatinine 0.8. PHYSICAL EXAMINATION: VITAL SIGNS: Temperature 98.2, blood pressure 13 5/60, heart rate 90. GENERAL: The patient is in no acute distress wit hout difficulty. HEART: Regular. LUNGS: Seems to be clear anteriorly. Still have a chest tube on the right side. ABDOMEN: Soft and nontender. EXTREMITIES: No edema. No rash. NEUROLOGIC: Awake, alert. ASSESSMENT AND PLAN: 1. Questionable bacterial pneumonia. 2. Severe leukocytosis. 3. Right large pleural effusion, status post vicky st tube placement. 4. Liver mass without any clear diagnosis of mal ignancy. RECOMMENDATIONS: 1. Continue Zosyn IV for the time being. 2. Remove chest tube whenever lungs have healed. 3. I still suggest to transfer the patient to [facility] or she will follow up as an outpatient fo r final aggressive diagnostic procedures for her liver l esion. 4. Discussed with RN. FREDI/INGRID /[id number] 2022-01-10 07:10:36-00:00 [facility] PROGRESS NOTE [facility] FACILITY: [facility] Billing #: [id number] Room: [address] [place] [address] MR #: [id number] : 1945 PHYSICIAN: Agus Oliver MD ADMISSION DATE: 12/28/2021 DATE: 01/09/2022 SUBJECTIVE: The patient is feeling much better. Her pain has subsided. She had a chest tube placed for pleura l effusion on her right side. She has no rash and no diarrhea. Interestingly, her white blood count down from 3 6,000 down to 10,000. Creatinine 0.9. PHYSICAL EXAMINATION: VITAL SIGNS: Blood pressure 148/63, heart rate 6 0, oxygen saturation 96% on oxygen, temperature 96. GENERAL: The patient in no acute distress. Awake , alert, and pleasant. HEART: Regular. LUNGS: Clear. ABDOMEN: Soft, nontender. EXTREMITIES: No edema, no rash. NEUROLOGIC: Awake and alert. LABORATORY DATA: Reviewed as mentioned. White bl ood count down to 10,000. Creatinine 0.9. ASSESSMENT: 1. Pleural effusion, suspect malignant. 2. Acute hypoxic respiratory failure. 3. Liver masses and questionable neoplastic lesi ons. RECOMMENDATIONS: 1. Continue cefepime IV. 2. Hold on vancomycin for now. 3. Check pleural fluid analysis. 4. Continue oxygen and titrate as needed. 5. DVT prophylaxis. 6. Discussed with attending. FREDI/INGRID /[id number] 2022-01-08 16:07:54-00:00 [facility] PROGRESS NOTE CHANEL CABAN FACILITY: [facility] Billing #: [id number] Room: [facility] 43 MR #: [id number] : 1945 PHYSICIAN: Agus Oliver MD ADMISSION DATE: 12/28/2021 DATE: 01/08/2022 SUBJECTIVE: Chanel is still having right upper q uadrant pain, but the pain is not very intense as much as it w as. She has no fever and no chills. PHYSICAL EXAMINATION: VITAL SIGNS: Blood pressure 135/64, heart rate 1 00, temperature 97.6. GENERAL: The patient is not in acute distress. B reathing without difficulty. HEENT: Face symmetric. HEART: Regular. LUNGS: Clear. ABDOMEN: Soft. Right upper quadrant tenderness a ppreciated. EXTREMITIES: No edema. No rash. NEUROLOGIC: Awake, alert, pleasant, appropriate. LABORATORY DATA: Her workup today show white blo od count still very high at 36,000, hemoglobin 9, platelets 526 . Her creatinine 1.3. I reviewed her record actually f za [place]. The patient has multiple biopsies and was not c onclusive of any malignancy, showed chronic inflammatory lymp hocytic cells. 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 I discussed with the attending Dr. Hairston as well as with the family at the bedside. I think she should be transferred to [facility] to have a more aggressive workup or most likely resection of her liver mass to have a final diag nosis. We can continue cefepime and vancomycin IV for the time being until final blood culture results are available. We wi ll follow up the patient during her hospital stay for the [facility] e being. NTK/MODL /[id number] 2022-01-08 06:45:14-00:00 [facility] CONSULTATION CHANEL CABAN FACILITY: [facility] Billing #: [id number] Room: [facility] 43 MR #: [id number] : 1945 DATE OF ADMISSION: 12/28/2021 DATE OF CONSULTATION: 01/07/2022 REQUESTING PHYSICIAN: WAX ENGRAVER: Agus Oliver MD Infectious Disease Consultation REASON FOR THE CONSULT: Leukocytosis. HISTORY OF PRESENT ILLNESS: This is a 76-year-ol d lady who seems to have presented to an outside emergency room for severe right flank, upper quadrant pain and transferred here to be evaluated. It seems that she has history of meta static cancer and known right hepatitic mass that is very exte nsive and large. The patient noted to have leukocytosis, p laced on IV antibiotics, cefepime, and vancomycin. She state s she has not had any fever, chills, or night sweats. She has been losing weight. She has some cough and dyspnea has been lingering for sometimes. MEDICAL HISTORY: Besides that significant hypert ension, dyslipidemia, hypothyroidism, and GERD. SURGICAL HISTORY: Significant for cataract extra ction, retinal tear repair, cholecystectomy. ALLERGIES: PENICILLIN CAUSES SEVERE ANGIOEDEMA. HOME MEDICATIONS: Reviewed and reconciled alread y. SOCIAL HISTORY: The patient is not a smoker or a lcoholic. FAMILY HISTORY: Negative for heart disease or ca ncer. REVIEW OF SYSTEMS: The patient has no fever, no chills. She has bee n having no visual complaint. No runny nose. No sore throat. No hearing problems. She has no chest pain. No palpitation. She has a cough and trouble breathing. She has no vomiting , no diarrhea, but abdominal pain. She does have some burning u rination. No skin rash. No anxiety. Denies heat or cold intol erance. No easy bruising. PHYSICAL EXAMINATION: VITAL SIGNS: Show heart rate around 110, blood p ressure 140/70, oxygen saturation 95% on 5 L. GENERAL: The patient is currently not in acute d istress, seems to be appropriate for setting. Awake and alert. HEENT: Face is symmetric. Conjunctivae are injec warren. Vision and hearing diminished. Oral mucosa moist. No th cisneros. NECK: No JVD. No goiter. HEART: Regular, tachycardic. LUNGS: Decreased sounds bilaterally. ABDOMEN: Soft, nontender. EXTREMITIES: Lower extremity, no ankle edema. SKIN: No rash. NEUROLOGIC: Awake and alert. LABORATORY DATA: Reviewed. White blood count is very high. Creatinine elevated. TSH 0.5. Potassium 3.67, gl ucose 122, creatinine 1.84. White blood count today 32,000. ASSESSMENT AND PLAN: 1. Leukocytosis, seems to be related to her exte nsive tumor burden, doubt any infectious disease etiology in volved. 2. Malignant pleural effusion. 3. Acute renal failure. RECOMMENDATIONS: 1. Check blood cultures and if they are negative and white blood count is not persistently elevated, then s top antibiotics. Overall prognosis of this patient seems to be ve ry poor. Seems to be hospice appropriate. Dr. Torres thank you for the consult. FREDI/INGRID /[id number] 2022-01-08 00:30:31-00:00 ROBERT [facility] CONSULTATION CHANEL CABAN FACILITY: [facility] Billing #: [id number] Room: [address] [place] [address] MR #: [id number] : 1945 DATE OF ADMISSION: 12/28/2021 DATE OF CONSULTATION: 01/07/2022 REQUESTING PHYSICIAN: WAX ENGRAVER: Robert Krishna MD Pulmonary and Critical Care Consultation Note. REASON FOR CONSULTATION: Pleural effusion. HISTORY OF PRESENT ILLNESS: This is a 76-year-ol d woman with a history of hypertension, hyperlipidemia, hypothy roidism, GERD, prior cholecystectomy, who was transferred from [facility] for higher level of care for pleural effusions and hepatic lesions. Apparently she went to outside hospital for pain in the right side of her chest under the ri b cage. She had some shortness of breath that she attributed to being out of shape and being old. She is an extremely poor historian. History is per chart and staff as a result. Appa rently her son pulled up my chart on her phone and some informa tion was gathered from there. She has been having about a year of pain under rib cage on the right side and was diagnos ed with peritoneal carcinoma in February 2021 by rommel fernandez. She was followed by an oncologist in [place]. Her p ain had been worsening. She underwent a CT abdomen in July that showed a 9.2 cm hepatic lobe mass and then a PET scan i n October 07, 2021 showed increase in the size of the mass to almos t 20 cm. She had lesions in the peritoneal lining and the rig ht hemidiaphragm and had retroperitoneal lymph node uptake. Also noted was a moderate right pleural effusion. Lat er in October she had a normal EGD and colonoscopy and then la ter she was seen by an oncologist who planned for peritoneal lesion biopsies on Wednesday. Due to worsening of pain, s he came to the hospital. She denies any other symptoms such as fever, chills, nausea, vomiting, diarrhea, or bleeding from any where. She endorses weight loss. At the outside facility darron r COVID test was negative, but she had leukocytosis. REVIEW OF SYSTEMS: 12-point review of systems was performed and all other systems were reviewed and are negative except as stated in HPI. PAST MEDICAL HISTORY: See HPI. PAST SURGICAL HISTORY: Includes colon cystectomy , retinal and cataract surgeries. MEDICATIONS: Include in the hospital PPI, vancom ycin, cefepime, and albuterol. She takes thyroid and b lood pressure medications at home. See medication administrati on record for additional details and all the medication list. SOCIAL HISTORY: Denies any smoking or alcohol u se. FAMILY HISTORY: Denies any family history of sarai g disease, but her sister has a history of some sort of cancer. OBJECTIVE: VITAL SIGNS: Blood pressure 130/66, t emperature 96.8, pulse 101, respirations 18, saturations 93 %. GENERAL: Well developed, well nourished, no acut e distress. SKIN AND LYMPHATICS: No induration or rashes. No cervical adenopathy or axillary adenopathy. HEENT: Normocephalic, atraumatic. Eyes, ears, co njunctivae, nares appeared to be normal. Oropharynx clear. NECK: Supple. Trachea midline. No thyroid tender ness or masses appreciated. RESPIRATORY: Diminished breath sounds and faint crackles on the right side. Effort normal. CARDIAC: Normal S1 and S2. Regular rate and rhyt hm. No murmurs, rubs, or gallops. No lower extremity ed mery. ABDOMEN: Soft, nontender, nondistended. No hepat osplenomegaly appreciated. Bowel sounds present. EXTREMITIES: No cyanosis, clubbing, or edema. St rength and tone grossly normal. NEUROLOGIC: Cranial nerves and sensation grossly intact. Follows commands. PSYCH: Alert and oriented. Mood/affect normal. LABORATORY DATA: WBC 32, hemoglobin 8, platelets 528. Chloride 96, bicarb 25, BUN 25, creatinine 1.8, INR 1.4. LFTs unremarkable. Chest x-ray 01/07/2022, large righ t-sided significant pleural effusion. CT chest, abdomen and pelvis 01/06/2022: Large right-sided pleural effusion w ith associated atelectasis, there is a complex perihepatic flui d collection of about 8 x 7 cm, considerations include abscess v ersus neoplasm. ASSESSMENT AND PLAN: 1. Large right-sided pleural effusion. 2. Shortness of breath. 3. Previous diagnosis of peritoneal carcinoma wi th large liver lesion. 4. Acute hypoxemic respiratory failure. 5. Possible liver abscess. a. Status post thoracentesis with removal of 1.2 L of light green fluid. Pleural fluid labs including micro and cytology have been ordered, add on bilirubin to be sent f rom pleural fluid. b. Tolerating 4 L nasal cannula, wean as tolera warren. c. Continue broad spectrum antibiotics. d. Follow cultures. e. Continue albuterol inhaler. ADAM/INGRID /[id number]
[2022-11-08 07:57] LABS: Absolute Lymphocytes (CBC) 2.6 K/uL (0.7-4.9); Hematocrit 31.6 % (36.0-45.0); Lymphocytes % 15.9 % (15.3-44.8); MCV 77.6 fL (80-100); MPV 6.9 fL (7.6-11.3); Platelets 550 thou/uL (152-406); RBC Red Blood Cell Count 4.08 M/uL (3.86-4.86)
[2022-11-08] MEDS ORDERED: PROMETH/COD 6.25/10MG SYRUP 5ML PO ONE (08:00)
[2022-11-08 08:12] LABS: Magnesium 1.9 mg/dL (1.6-2.4); Troponin High Sensitivity 5.3 pg/mL (<58.9)
--- NOTE | 2022-11-08 08:49 | RAD REPORT ---
EXAM DESCRIPTION: CT - Thorax W/ Con - 11/08/2022 8:29 am CLINICAL HISTORY: Cough COMPARISON: December 2021 CT chest April 20 chest x-ray TECHNIQUE: Computed axial tomography of the chest was obtained. 100 cc Isovue 300 was administered i ntravenously. All CT scans are performed using dose optimization technique as appropriate and may include automated exposure control or mA/KV adjustment according to patient size. FINDINGS: Small right pleural effusion. A 4 x 2 centimeter soft tissue structure lateral right lower lobe. Mild chronic interstitial opacities right lung. Left lung clear No pericardial effusion. Calcified thyroid nodules unchanged 6 x 5 centimeter complex cystic mass abutting the right aspect of the liver only partially included i n the field of view. It is mildly diminished in size. IMPRESSION: 4 x 2 centimeter soft tissue structure lateral right lower lobe may represent atelectasi s or mass. Small right pleural effusion 6 x 5 centimeter complex cystic. Perihepatic mass only partially included in the field view appears m ildly diminished in size presumably neoplastic
--- NOTE | 2022-11-08 08:49 | RAD REPORT ---
EXAM DESCRIPTION: CT - Soft Tissue Neck W/Contr - 11/08/2022 8:29 am CLINICAL HISTORY: Neck pain with cough COMPARISON: None. TECHNIQUE: Computed axial tomography of the neck was obtained. 50 cc Isovue 300 was administered in travenously. Coronal and sagittal reconstruction was performed. All CT scans are performed using dose optimization technique as appropriate and may include automated exposure control or mA/KV adjustment according to patient size. FINDINGS: The pharynx, tongue base, larynx and subglottic trachea appear unremarkable The parotid and submandibular glands are unremarkable No lymphadenopathy is seen No fluid within the sinuses/mastoids IMPRESSION: No acute abnormality is displayed
--- NOTE | 2022-11-08 08:50 | RAD REPORT ---
EXAM DESCRIPTION: [facility] Single View11/08/2022 7:53 am CLINICAL HISTORY: Cough COMPARISON: March 2022 FINDINGS: Right lateral basilar lung opacity without significant change may represent atelectasis or neoplasm. Small right pleural effusion Left lung appears clear. Heart is normal size
--- NOTE | 2022-11-08 09:10 | RAD REPORT ---
EXAM DESCRIPTION: CT - Abdomen Pelvis Wo Contrast - 11/08/2022 8:51 am CLINICAL HISTORY: Abdominal pain COMPARISON: 2020 and 2021 TECHNIQUE: Computed axial tomography of the abdomen and pelvis was obtained. IV and oral contrast we re not requested. All CT scans are performed using dose optimization technique as appropriate and may include automated exposure control or mA/KV adjustment according to patient size. FINDINGS: The evaluation of solid organs, vessels and bowel is limited secondary to the lack of con trast administration. The 8.6 x 5.8 centimeter complex cystic mass abuts right aspect of the liver. It is without significa nt change in size Small greater omentum nodule has resolved. Cholecystectomy Liver, spleen, pancreas, adrenals and kidneys grossly normal. No adnexal mass. No evidence diverticulitis. IMPRESSION: 8.6 centimeter complex cystic perihepatic mass presumably neoplastic.
--- NOTE | 2022-11-08 10:00 | EDPHYS ---
Physician Documentation [facility] Name: Chanel Martinez Age: 77 yrs Sex: Female : 1945 Arrival Date: 11/08/2022 Time: 06:10 Bed 8 Private MD: ED Physician Jaime Henderson HPI: 11/08 07:59 This 77 yrs old Female presents to ER via Ambulatory with complaints of Painful Cough. kdr 07:59 Patient presents to the ED complaining of a cough. The cough has been persistent and kdr worsening over the last 2 weeks. Patient's had this problem overall for perhaps a year. Patient has been evaluated for and had various respiratory and pulmonary issues over the past year including a what may have been a pleurodesis about a year ago. Patient denies any fever or chills. She has a small amount of phlegm which she is coughing up without color. Patient otherwise is stable and nontoxic-appearing. Onset: The symptoms/episode began/occurred gradually, 2 week(s) ago. Severity of symptoms: At their worst the symptoms were moderate in the emergency department the symptoms are unchanged. The patient has experienced similar episodes in the past, chronically. The patient has been recently seen by a physician: the patient's primary care provider. Patient has been on numerous medications including antibiotics and cough medications without relief of her symptoms.. Historical: - Allergies: 06:32 Augmentin; rv 06:32 PENICILLINS; rv - PMHx: 06:32 GERD; Hypertension; Hypothyroidism; Tachycardia; rv - PSHx: 06:32 None; rv - Immunization history:: Adult Immunizations up to date. - Social history:: Smoking status: Patient denies any tobacco usage or history of. ROS: 07:59 Constitutional: Negative for fever, chills, and weight loss, Eyes: Negative for injury, kdr pain, redness, and discharge, ENT: Negative for injury, pain, and discharge, Neck: Negative for injury, pain, and swelling, Cardiovascular: Negative for chest pain, palpitations, and edema, Abdomen/GI: Negative for abdominal pain, nausea, vomiting, diarrhea, and constipation, Back: Negative for injury and pain, : Negative for injury, bleeding, discharge, and swelling, MS/Extremity: Negative for injury and deformity, Skin: Negative for injury, rash, and discoloration, Neuro: Negative for headache, weakness, numbness, tingling, and seizure activity. Psych: Negative for depression, anxiety, suicide ideation, homicidal ideation, and hallucinations, Allergy/Immunology: Negative for hives, rash, and allergies, Endocrine: Negative for neck swelling, polydipsia, polyuria, polyphagia, and marked weight changes, Hematologic/Lymphatic: Negative for swollen nodes, abnormal bleeding, and unusual bruising. 07:59 Respiratory: Positive for cough, with clear sputum, shortness of breath, Shortness of breath with coughing, Negative for hemoptysis, pleurisy, wheezing. Exam: 07:59 Constitutional: This is a well developed, well nourished patient who is awake, alert, kdr and in no acute distress. Patient has persistent coughing spells which at times make her short of breath and bring tears to her eyes Head/Face: Normocephalic, atraumatic. Eyes: Pupils equal round and reactive to light, extra-ocular motions intact. Lids and lashes normal. Conjunctiva and sclera are non-icteric and not injected. Cornea within normal limits. Periorbital areas with no swelling, redness, or edema. Neck: Trachea midline, no thyromegaly or masses palpated, and no cervical lymphadenopathy. Supple, full range of motion without nuchal rigidity, or vertebral point tenderness. No Meningismus. Chest/axilla: Normal chest wall appearance and motion. Nontender with no deformity. No lesions are appreciated. Cardiovascular: Regular rate and rhythm with a normal S1 and S2. No gallops, murmurs, or rubs. Normal PMI, no JVD. No pulse deficits. Respiratory: Lungs have equal breath sounds bilaterally, clear to auscultation and percussion. No rales, rhonchi or wheezes noted. No increased work of breathing, no retractions or nasal flaring. Abdomen/GI: Soft, non-tender, with normal bowel sounds. No distension or tympany. No guarding or rebound. No evidence of tenderness throughout. Back: No spinal tenderness. No costovertebral tenderness. Full range of motion. Skin: Warm, dry with normal turgor. Normal color with no rashes, no lesions, and no evidence of cellulitis. MS/ Extremity: Pulses equal, no cyanosis. Neurovascular intact. Full, normal range of motion. Neuro: Awake and alert, GCS 15, oriented to person, place, time, and situation. Cranial nerves II-XII grossly intact. Motor strength 5/5 in all extremities. Sensory grossly intact. Cerebellar exam normal. Normal gait. Psych: Awake, alert, with orientation to person, place and time. Behavior, mood, and affect are within normal limits. Vital Signs: 06:30 BP 121 / 67; Pulse 101; Resp 20; Temp 98; Pulse Ox 99% ; Weight 65.77 kg; Height 5 ft. rv 3 in. ; 07:44 BP 129 / 69; Pulse 91; Resp 19; Pulse Ox 99% on R/A; Pain 0/10; me1 08:58 BP 121 / 75; Pulse 96; Resp 18; Pulse Ox 100% on R/A; ph 10:38 BP 122 / 78; Pulse 94; Resp 18; Temp 97.9; Pulse Ox 98% on R/A; ph 06:30 Body Mass Index 25.69 (65.77 kg, 160.02 cm) rv 07:44 Pain Scale: Adult me1 MDM: 07:59 Data reviewed: vital signs, nurses notes. kdr 09:59 Patient medically screened. kdr 11/08 07:01 Order name: CBC with Diff; Complete Time: 08:29 kdr 11/08 07:01 Order name: Chem 7; Complete Time: 08:29 kdr 11/08 07:01 Order name: D-Dimer; Complete Time: 08:29 kdr 11/08 07:01 Order name: Magnesium; Complete Time: 08:29 kdr 11/08 07:01 Order name: NT PRO-BNP; Complete Time: 08:29 kdr 11/08 07:01 Order name: Troponin HS; Complete Time: 08:29 kdr 11/08 07:01 Order name: CXR XRAY; Complete Time: 08:56 kdr 11/08 07:15 Order name: CT Soft Tissue Neck W/contr; Complete Time: 08:56 kdr 11/08 07:16 Order name: CT Chest W/ Con; Complete Time: 08:56 kdr 11/08 08:38 Order name: Abdomen ; Complete Time: 09:34 EDMS 11/08 07:01 Order name: EKG; Complete Time: 07:02 kdr 11/08 07:01 Order name: Cardiac monitoring; Complete Time: 07:39 kdr 11/08 07:01 Order name: EKG - Nurse/Tech; Complete Time: 07:39 kdr 11/08 07:01 Order name: IV Saline Lock; Complete Time: 07:39 kdr 11/08 07:01 Order name: Labs collected and sent; Complete Time: 07:39 kdr 11/08 07:01 Order name: O2 Per Protocol; Complete Time: 07:25 kdr 11/08 07:01 Order name: O2 Sat Monitoring; Complete Time: 07:25 kdr Administered Medications: 08:05 Drug: Promethazine-Codeine PO Liquid (6.25mg - 10mg / 5mL) 10 ml Route: PO; ph 10:38 Follow up: Response: No adverse reaction ph Disposition Summary: 11/08/22 09:59 Discharge Ordered Location: Home kdr Problem: an ongoing problem kdr Symptoms: have improved kdr Condition: Stable kdr Diagnosis - Cough kdr - Right thorax and right perihepatic mass little change from prior imaging in 2021 kdr Followup: kdr - With: Private Physician - When: 2 - 3 days - Reason: If symptoms return, Further diagnostic work-up, Recheck today's complaints, Continuance of care, Re-evaluation by your physician Discharge Instructions: - Discharge Summary Sheet kdr - Cough, Adult kdr Forms: - Medication Reconciliation Form kdr - Thank You Letter kdr - Prescription Opioid Use kdr - Patient Portal Instructions kdr - Leadership Thank You Letter kdr Prescriptions: - Promethazine VC-Codeine 6.25-5-10 mg/5 mL Oral syrup - administer 5 milliliter by ORAL route every 4 to 6 hours As needed as needed kdr for cough; 200 milliliter; Refills: 0, Product Selection Permitted Signatures: Dispatcher [employer] EDMS Jaime Henderson MD MD kdr Lena Nuno RN RN ph Bret Smiley, BIA RN rv Corrections: (The following items were deleted from the chart) 08:36 08:36 Abdomen Wo Contrast ordered. EDMS EDMS
--- NOTE | 2022-11-08 10:00 | ER ---
Nurse's Notes [facility] Name: Chanel Martinez Age: 77 yrs Sex: Female : 1945 Arrival Date: 11/08/2022 Time: 06:10 Bed 8 Private MD: Diagnosis: Cough;Right thorax and right perihepatic mass little change from prior imaging in 2021 Presentation: 11/08 06:30 Chief complaint: Patient states: woke up today at 0300 with persistent cough. pt was rv diagnosed with flu mid September, has been put on atb and 2 different kinds of cough medication. on and off persistent cough since then. denies fever. Coronavirus screen: At this time, the client does not indicate any symptoms associated with coronavirus-19. Ebola Screen: No symptoms or risks identified at this time. Initial Sepsis Screen: Does the patient meet any 2 criteria? No. Patient's initial sepsis screen is negative. Does the patient have a suspected source of infection? No. Patient's initial sepsis screen is negative. Risk Assessment: Do you want to hurt yourself or someone else? Patient reports no desire to harm self or others. Onset of symptoms was November 08, 2022. 06:30 Method Of Arrival: Ambulatory rv 06:30 Acuity: RYAN 3 rv Triage Assessment: 06:32 General: Appears uncomfortable, Behavior is calm, cooperative. Pain: Complains of pain rv in chest. Neuro: Level of Consciousness is awake, alert, obeys commands, Oriented to person, place, time, situation. Cardiovascular: Capillary refill Patient's skin is warm and dry. Respiratory: Reports cough that is hacking, persistent Airway is patent. GI: No signs and/or symptoms were reported involving the gastrointestinal system. : No signs and/or symptoms were reported regarding the genitourinary system. Derm: Skin is intact. Historical: - Allergies: 06:32 Augmentin; rv 06:32 PENICILLINS; rv - PMHx: 06:32 GERD; Hypertension; Hypothyroidism; Tachycardia; rv - PSHx: 06:32 None; rv - Immunization history:: Adult Immunizations up to date. - Social history:: Smoking status: Patient denies any tobacco usage or history of. Screenin:33 [facility] ED Fall Risk Assessment (Adult) History of falling in the last 3 months, rv including since admission No falls in past 3 months (0 pts) Confusion or Disorientation No (0 pts) Intoxicated or Sedated No (0 pts) Impaired Gait No (0 pts) Mobility Assist Device Used No (0 pt) Altered Elimination No (0 pt) Score/Fall Risk Level 0 - 2 = Low Risk Oriented to surroundings, Maintained a safe environment, Educated pt \T\ family on fall prevention, incl call for assistance when getting out of bed, Assessed \T\ reinforced patient's understanding of fall precautions, Provided non-skid footwear, Hourly rounding (assess needs \T\ fall precautionary measures) done, Used ambulatory aids as needed (educated on \T\ assisted with), Used gait belt as appropriate. Abuse screen: Denies threats or abuse. Denies injuries from another. Nutritional screening: No deficits noted. Tuberculosis screening: No symptoms or risk factors identified. Assessment: 07:40 General: Appears uncomfortable, well groomed, well developed, well nourished, Behavior me1 is calm, cooperative, appropriate for age, Reports feeling ill for waking up at 03:00 with persistent cough. Was dx with flu in mid September and has had a cough since that worsened this morning. Reports she has had several different cough meds and antibiotics without any relief. Denies fever. Pain: Denies pain. Neuro: Level of Consciousness is awake, alert, obeys commands, Oriented to person, place, time, situation, Appropriate for age. Cardiovascular: Capillary refill < 3 seconds Patient's skin is warm and dry. Respiratory: Airway is patent Respiratory effort is even, unlabored, Respiratory pattern is regular, symmetrical, cough since mid-September that worsened this am. 10:37 Reassessment: Patient appears in no apparent distress at this time. Patient and/or ph family updated on plan of care and expected duration. Pain level reassessed. Patient is alert, oriented x 3, equal unlabored respirations, skin warm/dry/pink. Vital Signs: 06:30 BP 121 / 67; Pulse 101; Resp 20; Temp 98; Pulse Ox 99% ; Weight 65.77 kg; Height 5 ft. rv 3 in. ; 07:44 BP 129 / 69; Pulse 91; Resp 19; Pulse Ox 99% on R/A; Pain 0/10; me1 08:58 BP 121 / 75; Pulse 96; Resp 18; Pulse Ox 100% on R/A; ph 10:38 BP 122 / 78; Pulse 94; Resp 18; Temp 97.9; Pulse Ox 98% on R/A; ph 06:30 Body Mass Index 25.69 (65.77 kg, 160.02 cm) rv 07:44 Pain Scale: Adult [facility] [place] [place] ED Course: 06:17 Patient arrived in ED. kj1 06:30 Bret Smiley, RN is Primary Nurse. rv 06:32 Triage completed. rv 06:33 Arm band placed on right wrist. rv 06:34 Patient has correct armband on for positive identification. Client placed on continuous rv cardiac and pulse oximetry monitoring. NIBP monitoring applied. library monitor on. 06:34 No provider procedures requiring assistance completed. rv 07:00 Jaime Henderson MD is Attending Physician. kdr 07:39 D-Dimer Sent. me1 07:39 Magnesium Sent. me1 07:39 NT PRO-BNP Sent. me1 07:39 Troponin HS Sent. me1 07:40 Provided Education on: POC. Verbalized understanding. . me1 07:40 Inserted saline lock: 22 gauge in right forearm, using aseptic technique. me1 07:54 CXR XRAY In Process Unspecified. EDMS 08:30 CT Chest W/ Con In Process Unspecified. EDMS 08:31 CT Soft Tissue Neck W/contr In Process Unspecified. EDMS 08:38 Abdomen In Process Unspecified. EDMS 10:42 IV discontinued, intact, bleeding controlled, No redness/swelling at site. Pressure ph dressing applied. Administered Medications: 08:05 Drug: Promethazine-Codeine PO Liquid (6.25mg - 10mg / 5mL) 10 ml Route: PO; ph 10:38 Follow up: Response: No adverse reaction ph Medication: 06:34 VIS not applicable for this client. rv Outcome: 09:59 Discharge ordered by . kdr 10:42 Discharged to home ambulatory, with significant other. ph 10:42 Condition: good 10:42 Discharge instructions given to patient, Instructed on discharge instructions, follow up and referral plans. medication usage, Demonstrated understanding of instructions, follow-up care, medications, Prescriptions given X 1. 10:42 Patient left the ED. ph Signatures: Dispatcher [employer] EDMS Jaime Henderson MD MD kdr Lena Nuno RN RN ph Bret Smiley, RN RN rv Maverick, Rosa kj1 Mini Escalante RN RN me1
[2022-11-08 10:52] VITALS: BP 122/78; TEMP 97.9; O2SAT 98
--- NOTE | 2022-11-09 13:12 | EKG ---
Test Date: 2022-11-08 Test Time: 07:36:35 Shoe Lacer: MEASUREMENT RESULTS: Intervals: Rate: 92 VT: 144 QRSD: 102 QT: 342 QTc: 422 Babbitt: P: 51 VT: 144 QRS: -20 T: 58 INTERPRETIVE STATEMENTS: Normal sinus rhythm Possible Left atrial enlargement Borderline ECG Compared to ECG 01/06/2022 08:44:29 Sinus tachycardia no longer present Myocardial infarct finding no longer present Electronically Signed On 11-09-22 13:10:05 CDT by Román Phillips
== END 2022-11-08 10:42 | disposition home or self-care (01) ==
LOC: ER 06:10
DX: R05.9 Cough, unspecified (principal); R06.02 Shortness of breath; I10 Essential (primary) hypertension; Z88.0 Allergy status to penicillin; Z88.1 Allergy status to other antibiotic agents
CPT/HCPCS: 93005; 85025; 80048; 36415; 83735; 85379; 84484; 83880; 71260; 70491; 74176; 71045; 99284; Q9967

== ENCOUNTER 2023-07-23 07:52 | Day surgery (SDC) | payer OTHER ==
--- NOTE | 2023-07-22 16:42 | EKG ---
Test Date: 2023-07-22 Test Time: 09:50:27 Precision Millwright: KARIS MEASUREMENT RESULTS: Intervals: Rate: 82 AR: 158 QRSD: 104 QT: 350 QTc: 408 [place]: P: 55 AR: 158 QRS: -16 T: 38 INTERPRETIVE STATEMENTS: Normal sinus rhythm Minimal voltage criteria for LVH, may be normal variant Borderline ECG Compared to ECG 11/08/2022 07:36:35 Left ventricular hypertrophy now present Electronically Signed On 07-22-23 16:41:27 CDT by Román Phillips
[2023-07-23] MEDS: Ringers Lactate 1,000 ML IV ONE (08:35)
[2023-07-23] MEDS ORDERED: LIDOCAINE 1% MPF 5 ML VIAL ONE (09:15)
[2023-07-23] MEDS ORDERED: propofoL 200 MG/20 ML VIAL IV ONE (09:15)
[2023-07-23 11:22] VITALS: BP 142/61; TEMP 98.6; O2SAT 99
== END 2023-07-23 11:12 | disposition home or self-care (01) ==
LOC: OR 07:52
PROVIDERS: ATTEND Surgery
PROC: 0DBL8ZX Excision of Transverse Colon, Via Natural or Artificial Opening Endoscopic, Diagnostic (ICD-10-PCS; 2023-07-23)
PROC: 0DBN8ZX Excision of Sigmoid Colon, Via Natural or Artificial Opening Endoscopic, Diagnostic (ICD-10-PCS; 2023-07-23)
PROC: 0DBM8ZX Excision of Descending Colon, Via Natural or Artificial Opening Endoscopic, Diagnostic (ICD-10-PCS; 2023-07-23)
PROC: 0DBH8ZX Excision of Cecum, Via Natural or Artificial Opening Endoscopic, Diagnostic (ICD-10-PCS; 2023-07-23)
PROC: 0DBK8ZX Excision of Ascending Colon, Via Natural or Artificial Opening Endoscopic, Diagnostic (ICD-10-PCS; principal; 2023-07-23 09:30)
DX: K62.89 Other specified diseases of anus and rectum (principal); K57.30 Diverticulosis of large intestine without perforation or abscess without bleeding; K64.8 Other hemorrhoids
CPT/HCPCS: 93005; 88305 ×2; 45380; J2704; J2001; J7120

== ENCOUNTER 2024-05-18 14:44 | Emergency (ER) | payer OTHER ==
--- NOTE | 2024-05-18 15:27 | RAD REPORT ---
EXAMINATION: ONE VIEW CHEST XR CLINICAL INDICATION: CHEST PAIN TECHNIQUE: Frontal chest projection is submitted. Examination is limited by patient positioning and t echnique. COMPARISON: 11/08/2022 FINDINGS: Mild pulmonary edema is suspected. Trace right pleural fluid. The heart is mildly enlarged in size. O ld right thoracic cage deformity. IMPRESSION: Mild CHF.
[2024-05-18 16:02] LABS: Absolute Eosinophils 0.1 K/uL (0-0.5); Absolute Lymphocytes (CBC) 2.2 K/uL (0.7-4.9); Absolute Monocytes 0.7 K/uL (0.1-1.3); Absolute Neutrophil 6.9 K/uL (1.8-8.0); Basophils % 0.2 % (0-1.3); Eosinophils % 0.9 % (0-4.4); Hematocrit 41.6 % (36.0-45.0); Hemoglobin 13.5 g/dL (12.0-15.0); Lymphocytes % 22.2 % (15.3-44.8); MCH 26.5 pg (27.0-35.0); MCHC 32.4 g/dL (32.0-36.0); MCV 81.9 fL (80-100); MPV 7.8 fL (7.6-11.3); Monocytes % 7.3 % (3.3-12.3); Neutrophils % 69.4 % (41.7-73.7); Platelets 258 thou/uL (152-406); RBC Red Blood Cell Count 5.08 M/uL (3.86-4.86); Red Cell Distribution Width 14.6 % (12.1-15.2)
[2024-05-18 16:17] LABS: Albumin 3.2 g/dL (3.4-5.0); Albumin/Globulin Ratio 0.7 (1.1-1.8); Bilirubin Direct 0.3 mg/dL (0-0.2); Bilirubin Indirect, Calculated 0.3 mg/dL (0.2-0.8); Bilirubin Total 0.6 mg/dL (0.2-1.0); Globulin 4.6 g/dL (2.3-3.5); Protein, Total 7.8 g/dL (6.4-8.2); Troponin High Sensitivity 8.6 pg/mL (<58.9)
--- NOTE | 2024-05-18 17:19 | RAD REPORT ---
EXAMINATION: CT ABDOMEN AND PELVIS WITH CONTRAST CLINICAL INDICATION: diarrhea, transaminitis TECHNIQUE: CT abdomen and pelvis was performed, after the administration of IV contrast, as per [facility] protocol. Axial, sagittal and coronal reconstructions were obtained. One or more of the following dose reduction techniques were used: Automated exposure control, adjustment of the mA and k V according to patient size, and iterative reconstruction. Unless otherwise specified, incidental findings do not require dedicated imaging follow-up. COMPARISON: 11/08/2022 FINDINGS: LOWER CHEST: Mild bibasilar lung scarring and chronic right pleural thickening. LIVER: Mild fatty liver is present. No focal lesion or biliary dilatation is seen. Cholecystectomy clips. Trace right perihepatic fluid. SPLEEN: Normal size. No focal lesion. PANCREAS: No mass, ductal dilation, or sohan-pancreatic fluid. ADRENALS: Normal; no mass. KIDNEYS: Normal size and contour. No hydronephrosis. GASTROINTESTINAL TRACT: No evidence of free air, significant intra-abdominal free fluid, bowel obstru ction or abscess. APPENDIX: Normal appendix. LYMPH NODES: No lymphadenopathy. MUSCULOSKELETAL: Mild multilevel spinal degenerative changes. ADDITIONAL FINDINGS: None. IMPRESSION: No acute or concerning abnormalities seen in the abdomen or pelvis.
--- NOTE | 2024-05-18 17:55 | EDPHYS ---
Physician Documentation [facility] Name: Chanel Martinez Age: 79 yrs Sex: Female : 1945 Arrival Date: 05/18/2024 Time: 14:44 Bed 16 Private MD: ED Physician Victorino Chavez HPI: 05/18 18:05 This 79 yrs old Female presents to ER via EMS with complaints of Chest Pain, Abdominal rt Pain, Back Pain. 18:05 Patient presents to the ED with a brief episode of substernal chest pain, resolving on rt its own without any treatment, denies any symptoms currently. Family states that she had some diarrhea and abdominal discomfort earlier today. She denies other acute complaints at this time, symptoms are moderate in severity, no other aggravating or alleviating factors.. Historical: - Allergies: 15:02 Augmentin; db 15:02 PENICILLINS; db - PMHx: 15:02 Hypertension; GERD; Hypothyroidism; Tachycardia; db - Immunization history:: Adult Immunizations unknown. - Infectious Disease History:: Denies. - Social history:: Smoking status: Patient denies any tobacco usage or history of. - Family history:: not pertinent. ROS: 18:05 Constitutional: Negative for fever, chills, and weight loss, Respiratory: Negative for rt shortness of breath, cough, wheezing, and pleuritic chest pain, MS/Extremity: Negative for injury and deformity, Skin: Negative for injury, rash, and discoloration, Neuro: Negative for headache, weakness, numbness, tingling, and seizure, 18:05 Cardiovascular: Positive for chest pain, Negative for edema, 18:05 Abdomen/GI: Positive for abdominal pain, diarrhea, Exam: 18:05 Constitutional: This is a well developed, well nourished patient who is awake, alert, rt and in no acute distress. Head/Face: Normocephalic, atraumatic. Chest/axilla: Normal chest wall appearance and motion. Nontender with no deformity. No lesions are appreciated. Cardiovascular: Regular rate and rhythm with a normal S1 and S2. No gallops, murmurs, or rubs. Normal PMI, no JVD. No pulse deficits. Respiratory: Lungs have equal breath sounds bilaterally, clear to auscultation and percussion. No rales, rhonchi or wheezes noted. No increased work of breathing, no retractions or nasal flaring. Abdomen/GI: Soft, non-tender, with normal bowel sounds. No distension or tympany. No guarding or rebound. No evidence of tenderness throughout. Skin: Warm, dry with normal turgor. Normal color with no rashes, no lesions, and no evidence of cellulitis. MS/ Extremity: Pulses equal, no cyanosis. Neurovascular intact. Full, normal range of motion. Neuro: Awake and alert, GCS 15, oriented to person, place, time, and situation. Cranial nerves II-XII grossly intact. Motor strength 5/5 in all extremities. Sensory grossly intact. Cerebellar exam normal. Normal gait. 18:05 ECG was reviewed by the Attending Physician. Vital Signs: 15:02 BP 144 / 61; Pulse 70; Resp 18; Temp 97.9; Pulse Ox 98% ; Weight 82.55 kg; Height 5 ft. db 3 in. ; 17:20 BP 151 / 69; Pulse 71; Resp 20; Pulse Ox 98% ; db 18:00 BP 148 / 62; Pulse 68; Resp 18; Pulse Ox 98% on R/A; db 15:02 Body Mass Index 32.24 (82.55 kg, 160.02 cm) db MDM: 15:00 Medical Screening Exam initiated rt 18:05 Differential diagnosis: Nonspecific chest pain, pneumonia, ACS, transaminitis, rt pancreatitis. HEART Score: History: Slightly Suspicious (0), ECG: Normal (0), Age: > or = 65 years (2), Risk Factors: 1 or 2 risk factors (1), Troponin: < or = 1 x Normal Limit (0), Total Score = 3. The patient was not given aspirin in the Emergency Department. Administered by EMS. Data reviewed: vital signs, nurses notes, lab test result(s), EKG, radiologic studies. Consideration of Admission/Observation Escalation of care including admission/observation considered. Patient has a normal EKG, 2 negative troponins, do not believe that she requires admission for ACS rule out at this time. Patient with mild transaminitis, not requiring admission at this time, CT scan is unremarkable. She is asymptomatic, discharge, outpatient follow-up and strict return precautions were discussed with patient.. I considered the following discharge prescriptions or medication management in the emergency department Medications were administered in the Emergency Department. See MAR. Independent interpretation of the following test(s) in the Emergency Department X-Ray: My interpretation is No infiltrate seen on interpretation of x-ray images. Care significantly affected by the following chronic conditions: Hypertension. Counseling: I had a detailed discussion with the patient and/or guardian regarding the historical points, exam findings, and any diagnostic results supporting the discharge/admit diagnosis, lab results, radiology results, the need for outpatient follow up, to return to the emergency department if symptoms worsen or persist or if there are any questions or concerns that arise at home. Response to treatment: the patient's symptoms have resolved after treatment, the patient's pain is gone. 05/18 15:00 Order name: Basic Metabolic Panel; Complete Time: 16:19 rt 05/18 15:00 Order name: CBC with Diff; Complete Time: 16:19 rt 05/18 15:00 Order name: LFT's; Complete Time: 16:19 rt 05/18 15:00 Order name: Troponin HS; Complete Time: 16:19 rt 05/18 16:44 Order name: Troponin HS; Complete Time: 17:51 rt 05/18 15:00 Order name: XRAY Chest (1 view); Complete Time: 15:33 rt 05/18 16:44 Order name: CT Abd/Pelvis - IV Contrast Only; Complete Time: 17:23 rt 05/18 15:00 Order name: Cardiac monitoring; Complete Time: 16:16 rt 05/18 15:00 Order name: EKG - Nurse/Tech; Complete Time: 16:16 rt 05/18 15:00 Order name: IV Saline Lock; Complete Time: 16:16 rt 05/18 15:00 Order name: Labs collected and sent; Complete Time: 16:16 rt 05/18 15:00 Order name: O2 Per Protocol; Complete Time: 16:16 rt 05/18 15:00 Order name: O2 Sat Monitoring; Complete Time: 16:16 rt 05/18 16:20 Order name: EKG - Nurse/Tech; Complete Time: 17:20 rt EC:05 Rate is 69 beats/min. Rhythm is regular, Normal Sinus Rhythm with No ectopy. QRS [place] rt is Normal. ME interval is normal. QRS interval is normal. QT interval is normal. No Q waves. T waves are Normal. No ST changes noted. Interpreted by me. Administered Medications: No medications were administered Disposition Summary: 05/18/24 17:54 Discharge Ordered Notes: Location: Home rt Problem: new rt Symptoms: have improved rt Condition: Stable rt Diagnosis - Chest pain, unspecified rt Followup: rt - With: Private Physician - When: 2 - 3 days - Reason: Discharge Instructions: - Discharge Summary Sheet rt - Nonspecific Chest Pain, Adult rt Forms: - Medication Reconciliation Form rt - Antibiotic Education rt - Prescription Opioid Use rt - Patient Portal Instructions rt - Leadership Thank You Letter rt Signatures: Dispatcher [employer] Ivette Alcazar, RN RN db Victorino Chavez MD MD rt Corrections: (The following items were deleted from the chart) 15:01 15:01 BASIC METABOLIC PANEL+C.LAB.BRZ ordered. EDMS EDMS 15:01 15:01 CBC+H.LAB.BRZ ordered. EDMS EDMS 15:01 15:01 HEPATIC FUNCTION+C.LAB.BRZ ordered. EDMS EDMS 15:01 15:01 Troponin High Sensitivity+C.LAB.BRZ ordered. EDMS EDMS 15:01 15:01 Chest Single View+RAD.RAD.BRZ ordered. EDMS EDMS 16:46 16:46 Troponin High Sensitivity+C.LAB.BRZ ordered. EDMS EDMS
--- NOTE | 2024-05-18 17:55 | ER ---
Nurse's Notes [facility] Name: Chanel Martinez Age: 79 yrs Sex: Female : 1945 Arrival Date: 05/18/2024 Time: 14:44 Bed 16 Private MD: Diagnosis: Chest pain, unspecified Presentation: 05/18 15:00 Chief complaint: Patient states: SUDDEN CHEST PAIN TODAY WHILE SITTING DOWN TODAY. db EPIGASTRIC PAIN. 324 MG ASA GIVEN. DENIES CHEST PAIN. NOW COMPLAINS OF EPIGASTRIC PAIN. Coronavirus screen: Client denies travel out of the [place] in the last 14 days. At this time, the client does not indicate any symptoms associated with coronavirus-19. Ebola Screen: Patient negative for fever greater than or equal to 101.5 degrees Fahrenheit, and additional compatible Ebola Virus Disease symptoms Patient denies exposure to infectious person. Initial Sepsis Screen: Does the patient meet any 2 criteria? No. Patient's initial sepsis screen is negative. Does the patient have a suspected source of infection? No. Patient's initial sepsis screen is negative. Risk Assessment: Do you want to hurt yourself or someone else? Patient reports no desire to harm self or others. Onset of symptoms was May 18, 2024. 15:00 Method Of Arrival: EMS: [facility] db 15:00 Acuity: RYAN 2 db Historical: - Allergies: 15:02 Augmentin; db 15:02 PENICILLINS; db - PMHx: 15:02 Hypertension; GERD; Hypothyroidism; Tachycardia; db - Immunization history:: Adult Immunizations unknown. - Infectious Disease History:: Denies. - Social history:: Smoking status: Patient denies any tobacco usage or history of. - Family history:: not pertinent. Screenin:09 [facility] ED Fall Risk Assessment (Adult) History of falling in the last 3 months, db including since admission No falls in past 3 months (0 pts) Confusion or Disorientation No (0 pts) Intoxicated or Sedated No (0 pts) Impaired Gait No (0 pts) Mobility Assist Device Used No (0 pt) Altered Elimination No (0 pt) Score/Fall Risk Level 0 - 2 = Low Risk Oriented to surroundings, Maintained a safe environment. Abuse screen: Denies threats or abuse. Denies injuries from another. Nutritional screening: No deficits noted. Tuberculosis screening: No symptoms or risk factors identified. Assessment: 16:00 Reassessment: Patient appears in no apparent distress at this time. No changes from db previously documented assessment. Patient and/or family updated on plan of care and expected duration. Pain level reassessed. Patient is alert, oriented x 3, equal unlabored respirations, skin warm/dry/pink. General: Appears in no apparent distress. comfortable, Behavior is calm, cooperative. Pain: Denies pain. Complains of pain in chest. Pain: Pain does not radiate. Pain began suddenly. Neuro: Level of Consciousness is awake, alert, obeys commands, Oriented to person, place, time, situation. Cardiovascular: Reports chest pain. Respiratory: Airway is patent Respiratory effort is even, unlabored, Respiratory pattern is regular, symmetrical. 17:20 Reassessment: Patient appears in no apparent distress at this time. Patient and/or db family updated on plan of care and expected duration. Pain level reassessed. Patient is alert, oriented x 3, equal unlabored respirations, skin warm/dry/pink. Patient states feeling better. Patient states symptoms have improved. 18:00 Reassessment: Patient appears in no apparent distress at this time. Patient and/or db family updated on plan of care and expected duration. Pain level reassessed. Patient is alert, oriented x 3, equal unlabored respirations, skin warm/dry/pink. Vital Signs: 15:02 BP 144 / 61; Pulse 70; Resp 18; Temp 97.9; Pulse Ox 98% ; Weight 82.55 kg; Height 5 ft. db 3 in. ; 17:20 BP 151 / 69; Pulse 71; Resp 20; Pulse Ox 98% ; db 18:00 BP 148 / 62; Pulse 68; Resp 18; Pulse Ox 98% on R/A; db 15:02 Body Mass Index 32.24 (82.55 kg, 160.02 cm) db Vitals: 17:09 Cardiac Rhythm Assessment Regular. db ED Course: 14:58 Patient arrived in ED. kc6 15:00 Victorino Chavez MD is Attending Physician. rt 15:00 Ivette Whatley, BIA is Primary Nurse. db 15:01 Triage completed. db 15:03 Arm band placed on. db 15:23 XRAY Chest (1 view) In Process Unspecified. EDMS 15:45 Initial lab(s) drawn, by me, EKG done. Inserted saline lock: 20 gauge in left db antecubital area, using aseptic technique. Blood collected. Flushed with 10 mL NS. Patient maintains SpO2 saturation greater than 95% on room air. 17:[address] via wheelchair. db 17:09 Patient has correct armband on for positive identification. Bed in low position. Call db light in reach. Side rails up X 1. Client placed on continuous cardiac and pulse oximetry monitoring. NIBP monitoring applied. monitoring engineer on. Pulse ox on. NIBP on. Warm blanket given. Pillow given. 17:13 CT Abd/Pelvis - IV Contrast Only In Process Unspecified. EDMS 18:17 Provided Education on: DISCHARGE AND FOLLOWUP. db 18:17 No provider procedures requiring assistance completed. IV discontinued, intact, db bleeding controlled, No redness/swelling at site. Administered Medications: No medications were administered Medication: 17:10 VIS not applicable for this client. db Outcome: 17:54 Discharge ordered by . rt 18:17 Discharged to home ambulatory, with family, db 18:17 Condition: stable 18:17 Discharge instructions given to patient, Instructed on discharge instructions, follow up and referral plans. 18:19 Patient left the ED. db Signatures: Dispatcher [employer] Danay Hui, RN RN kc6 Ivette Whatley, RN RN db Victorino Chavez MD MD rt
[2024-05-19 18:44] VITALS: TEMP 97.9; O2SAT 98
[2024-05-19 18:47] VITALS: BP 148/62
== END 2024-05-18 18:19 | disposition home or self-care (01) ==
LOC: ER 14:44
DX: R07.9 Chest pain, unspecified (principal); I10 Essential (primary) hypertension; K21.9 Gastro-esophageal reflux disease without esophagitis; E03.9 Hypothyroidism, unspecified; Z88.0 Allergy status to penicillin; Z88.1 Allergy status to other antibiotic agents
CPT/HCPCS: 36415; 71045; 74177; 80048; 80076; 84484; 85025; 93005; 99285; Q9967

== ENCOUNTER 2025-01-22 11:04 | Emergency (ER) | payer OTHER ==
[2025-01-22] MEDS ORDERED: LIDOCAINE 1% MPF 5 ML VIAL ONE (12:13)
--- NOTE | 2025-01-22 12:55 | RAD REPORT ---
EXAMINATION: CT HEAD WITHOUT CONTRAST CT CERVICAL SPINE WITHOUT CONTRAST CLINICAL INDICATION: Head and neck injury status post fall. Head and neck pain TECHNIQUE: Axial CT images from the skull base to the vertex without intravenous contrast. Axial CT i mages through the cervical spine were obtained without intravenous contrast. Sagittal and coronal reformatted images were created from the data set. Coronal and sagittal reformatted images were creat ed from the data set. One or more of the following dose reduction techniques were used: Automated exposure control, adjustment of the mA and/or kV according to patient size, and/or iterative reconstr uction. Unless otherwise specified, incidental findings do not require dedicated imaging follow-up. [id number]. Comparison: none FINDINGS: Right frontal scalp swelling An intracranial bleed is not seen. Ventricles are normal in caliber. Small low-density right basal ganglia probably old lacunar infarction. 1 cm area of increased density with faint calcification region of the left tentorium, left cerebellum and dural sinus. No fluid within the sinuses/mastoids No fracture or dislocation is seen involving the cervical spine. Small calcified thyroid nodules likely benign IMPRESSION: 1 cm area of increased density with faint calcification region of the left tentorium, left cerebellum and dural sinus. This probably represents confluence of normal structures. Other considerations include meningioma and calcified dural thrombus. It is recommended that patient have an MRI and MRV o f the brain for further evaluation. A cervical fracture is not seen.
--- NOTE | 2025-01-22 12:56 | RAD REPORT ---
EXAMINATION: CT MAXILLOFACIAL WITHOUT CONTRAST CLINICAL INDICATION: Facial pain. TECHNIQUE: Axial images were obtained through the facial bones and orbits without intravenous contras t. Sagittal and coronal reconstructions were created from the data. One or more of the following dose reduction techniques were used: Automated exposure control, adjustment of the mA and/or kV accor ding to patient size, and/or iterative reconstruction. Unless otherwise specified, incidental findings do not require dedicated imaging follow-up. COMPARISON: No prior exam. FINDINGS: Right periorbital hematoma. Right globe is intact. No fracture seen. No TMJ dislocation No fluid within the sinuses IMPRESSION: No fracture seen
--- NOTE | 2025-01-22 13:08 | RAD REPORT ---
EXAM: Hand Right 3 View HISTORY: PAIN COMPARISON: None FINDINGS: Bones: Slight cortical step-off at the base of the fourth metatarsal and fifth metacarpal. Alignment:No significant malalignment. Degenerative changes:Mild degenerative changes are present the first carpal metacarpal joint. Other: n/a IMPRESSION: Slight deformities at the fourth and fifth metacarpal heads. Nondisplaced fracture not excluded. Amaya elate with site of pain. CT could confirm.
--- NOTE | 2025-01-22 14:20 | RAD REPORT ---
EXAMINATION: Hand Right Wo Con CLINICAL INDICATION: Female, 79 years old.pain possible fracture TECHNIQUE: CT above extremity was performed without contrast. Reformats were performed. One or more o f the following dose reduction techniques were used: Automated exposure control, adjustment of the mA and/or kV according to patient size, and/or iterative reconstruction. Unless otherwise specified, incidental findings do not require dedicated imaging follow-up. [id number]. COMPARISON: Same day radiograph FINDINGS: Mildly comminuted fracture at the base of the fifth metatarsal. No intra-articular extension is seen. There are nondisplaced fractures of the hamate and capitate near the base of the fourth and fifth metacarpals. Widened scapholunate interval.There is an avulsion fracture off of the base along the vo lar aspect of the fourth metacarpal which extends up to the articular surface. This probably chronic. Sclerotic focus at the scaphoid is likely a bone island. IMPRESSION: Acute fractures at the base of the fourth and fifth metacarpals, hamate, and capitate. Widened scapholunate interval which is favored chronic.
--- NOTE | 2025-01-22 15:23 | ER ---
Nurse's Notes [facility] Name: Chanel Martinez Age: 79 yrs Sex: Female : 1945 Arrival Date: 01/22/2025 Time: 11:04 Bed 5 Private MD: Diagnosis: Nondisplaced fracture of shaft of unspecified metacarpal bone;Fracture of hamate, right wrist;Fracture of capitate, right wrist;Unspecified injury of head, initial encounter Presentation: 01/22 11:38 Chief complaint: EMS states: Tripped over curb at gas station and hit head on concrete. hb Hematoma noted to right forehead, laceration to upper lip, and abrasion to right hand. Negative LOC, not on thinners, c collar in place. Coronavirus screen: At this time, the client does not indicate any symptoms associated with coronavirus-19. Ebola Screen: No symptoms or risks identified at this time. Initial Sepsis Screen: Does the patient meet any 2 criteria? No. Patient's initial sepsis screen is negative. Does the patient have a suspected source of infection? No. Patient's initial sepsis screen is negative. Risk Assessment: Do you want to hurt yourself or someone else? Patient reports no desire to harm self or others. Onset of symptoms was January 22, 2025. 11:38 Method Of Arrival: EMS: [facility] hb 11:38 Acuity: RYAN 3 hb Historical: - Allergies: 11:42 Augmentin; hb 11:42 PENICILLINS; hb - PMHx: 11:42 GERD; Hypertension; Hypothyroidism; Tachycardia; hb - Immunization history:: Adult Immunizations up to date. - Infectious Disease History:: Denies. - Social history:: Smoking status: Patient denies any tobacco usage or history of. - Family history:: not pertinent. - Hospitalizations: : No recent hospitalization is reported. Screenin:53 [facility] ED Fall Risk Assessment (Adult) History of falling in the last 3 months, ap3 including since admission Yes- single mechanical fall (1 pt) Confusion or Disorientation No (0 pts) Intoxicated or Sedated No (0 pts) Impaired Gait No (0 pts) Mobility Assist Device Used No (0 pt) Altered Elimination No (0 pt) Score/Fall Risk Level 0 - 2 = Low Risk Oriented to surroundings, Maintained a safe environment, Educated pt \T\ family on fall prevention, incl call for assistance when getting out of bed, Assessed \T\ reinforced patient's understanding of fall precautions, Hourly rounding (assess needs \T\ fall precautionary measures) done, Used ambulatory aids as needed (educated on \T\ assisted with). Abuse screen: Denies threats or abuse. Nutritional screening: No deficits noted. Tuberculosis screening: No symptoms or risk factors identified. Assessment: 12:52 General: Appears uncomfortable, Behavior is calm, cooperative, appropriate for age. ap3 Pain: Complains of pain in face. Neuro: Level of Consciousness is awake, alert, obeys commands, Oriented to person, place, time, situation, Appropriate for age Speech is normal. Cardiovascular: Patient's skin is warm and dry. Respiratory: Airway is patent Respiratory effort is even, unlabored, Respiratory pattern is regular, symmetrical. Derm: Wound noted right eye and mouth. 14:00 Reassessment: Patient appears in no apparent distress at this time. Patient and/or zm family updated on plan of care and expected duration. Pain level reassessed. Patient is alert, oriented x 3, equal unlabored respirations, skin warm/dry/pink. 16:00 Reassessment: Patient appears in no apparent distress at this time. Patient and/or zm family updated on plan of care and expected duration. Pain level reassessed. Patient is alert, oriented x 3, equal unlabored respirations, skin warm/dry/pink. awaiting discharge pending splint placement. Vital Signs: 11:38 BP 158 / 62; Pulse 65; Resp 18; Temp 98.2; Pulse Ox 98% on R/A; Weight 88.5 kg (M); hb Height 5 ft. 3 in. ; Pain 8/10; 12:52 BP 162 / 80; Pulse 65; Resp 17; Pulse Ox 95% on R/A; ap3 14:30 BP 159 / 64; Pulse 63; Resp 18; Temp 98; Pulse Ox 97% on R/A; zm 16:00 BP 156 / 59; Pulse 56; Resp 16; Pulse Ox 98% on R/A; zm 17:00 BP 163 / 67; Pulse 63; Resp 18; Temp 98.1; Pulse Ox 96% on R/A; zm 11:38 Body Mass Index 34.56 (88.50 kg, 160.02 cm) hb 11:38 Pain Scale: Adult hb Cleo Coma Score: 14:30 Eye Response: spontaneous(4). Motor Response: obeys commands(6). Verbal Response: zm oriented(5). Total: 15. 17:00 Eye Response: spontaneous(4). Motor Response: obeys commands(6). Verbal Response: zm oriented(5). Total: 15. ED Course: 11:14 Patient arrived in ED. bd 11:24 Scott Garza MD is Attending Physician. rn 11:42 Triage completed. hb 11:42 Arm band placed on. hb 11:59 CT Head C Spine In Process Unspecified. EDMS 12:03 CT Facial Bones W/O Con In Process Unspecified. EDMS 12:43 Marilynn Del Castillo, BIA is Primary Nurse. ap3 12:54 Patient has correct armband on for positive identification. Bed in low position. Call ap3 light in reach. Side rails up X2. Pulse ox on. NIBP on. Door closed. Noise minimized. Warm blanket given. 12:59 XRAY Hand RIGHT 3 View In Process Unspecified. EDMS 13:52 Hand Right Wo Con In Process Unspecified. EDMS 15:22 Stefan Piña MD is Referral Physician. rn 15:30 Assist provider with laceration repair on mouth that was 2.5 cm. or less using sutures. zm Set up tray. Performed by Scott Garza MD Patient tolerated well. 16:19 Orthoglass splint: Volar splint applied on right arm. zm 17:00 Provided Education on: Orthoglass splint care. zm 17:16 Patient did not have IV access during this emergency room visit. zm Administered Medications: 15:11 Drug: Lidocaine Infiltration (1 %) 1 vials 5 ml Infiltration once; to bedside {Note: by ap3 dr garza.} Volume: 5 ml; Route: Infiltration; 17:17 Follow up: Response: No adverse reaction zm Medication: 16:19 VIS not applicable for this client. zm Outcome: 15:23 Discharge ordered by MD. rn 17:16 Discharged to home via wheelchair, with family, zm 17:16 Condition: stable 17:16 Discharge instructions given to patient, family, Instructed on discharge instructions, follow up and referral plans. safety practices, wound care, Demonstrated understanding of instructions, follow-up care, wound care, splint care, 17:22 Patient left the ED. zm Signatures: Dispatcher [employer] EDMS Latoya Albright Roman, MD MD rn Baxter, Heather RN RN Marilynn Espino RN RN Heather Flores RN RN zm
--- NOTE | 2025-01-22 15:23 | EDPHYS ---
Physician Documentation [facility] Name: Chanel Martinez Age: 79 yrs Sex: Female : 1945 Arrival Date: 01/22/2025 Time: 11:04 Bed 5 Private MD: ED Physician Scott Garza HPI: 01/22 12:52 This 79 yrs old Female presents to ER via EMS with complaints of Fall Injury. rn 12:52 Patient reports walking out of store, tripped and hit face on concrete. Caught herself rn first with the right hand and reports mid hand pain but no wrist or proximal pain. Reports injury to upper lip and hit head. No LOC. Does not take blood thinners. Denies neck pain/rib pain/chest pain/abdominal pain/back pain/hip or lower extremity pain.. Historical: - Allergies: 11:42 Augmentin; hb 11:42 PENICILLINS; hb - PMHx: 11:42 GERD; Hypertension; Hypothyroidism; Tachycardia; hb - Immunization history:: Adult Immunizations up to date. - Infectious Disease History:: Denies. - Social history:: Smoking status: Patient denies any tobacco usage or history of. - Family history:: not pertinent. - Hospitalizations: : No recent hospitalization is reported. ROS: 12:52 Constitutional: Negative for fever, chills, and weight loss, ENT: Positive for right rn upper lip laceration and contusion Neck: Negative for injury, pain, and swelling, Cardiovascular: Negative for chest pain, palpitations, and edema, Respiratory: Negative for shortness of breath, cough, wheezing, and pleuritic chest pain, Abdomen/GI: Negative for abdominal pain, nausea, vomiting, diarrhea, and constipation, MS/Extremity: Positive for right hand pain Skin: Negative for injury, rash, and discoloration, Neuro: Positive for mild headache and swelling to right side of forehead Exam: 12:52 Constitutional: This is a well developed, well nourished patient who is awake, alert, rn and in no acute distress. Head/Face: Superficial hematoma noted right forehead, no laceration. ENT: No obvious dental or gingival injury. Has 2 cm irregular superficial laceration of the mid upper lip that crosses the vermilion border. No foreign body and no active bleeding Neck: In c-collar, no midline tenderness Chest/axilla: No rib tenderness or crepitus. Respiratory: Speaking full sentences, unlabored, no pain with deep inspiration Abdomen/GI: Soft, nontender, no peritoneal signs MS/ Extremity: Mild tenderness at palm of right hand, no laceration or swelling. No injury or tenderness noted proximal to hand. Neuro: Awake and alert, GCS 15 Vital Signs: 11:38 BP 158 / 62; Pulse 65; Resp 18; Temp 98.2; Pulse Ox 98% on R/A; Weight 88.5 kg (M); hb Height 5 ft. 3 in. ; Pain 8/10; 12:52 BP 162 / 80; Pulse 65; Resp 17; Pulse Ox 95% on R/A; ap3 14:30 BP 159 / 64; Pulse 63; Resp 18; Temp 98; Pulse Ox 97% on R/A; zm 16:00 BP 156 / 59; Pulse 56; Resp 16; Pulse Ox 98% on R/A; zm 17:00 BP 163 / 67; Pulse 63; Resp 18; Temp 98.1; Pulse Ox 96% on R/A; zm 11:38 Body Mass Index 34.56 (88.50 kg, 160.02 cm) hb 11:38 Pain Scale: Adult hb Cleo Coma Score: 14:30 Eye Response: spontaneous(4). Motor Response: obeys commands(6). Verbal Response: zm oriented(5). Total: 15. 17:00 Eye Response: spontaneous(4). Motor Response: obeys commands(6). Verbal Response: zm oriented(5). Total: 15. Laceration: 15:20 Wound Repair of 2cm ( 0.8in ) subcutaneous laceration to Upper lip, involves vermilion rn border. Distal neuro/vascular/tendon intact. Anesthesia: Wound infiltrated with 2 mls of 1% lidocaine. Wound prep: Extensive cleansing by nurse, Wound explored extensively. Skin closed with 4 5-0 Fast-absorbing gut using interrupted sutures and sterile technique. Patient tolerated well. MDM: 11:24 Medical Screening Exam initiated rn 15:20 Differential diagnosis: closed head injury, contusion, fracture, laceration. Data rn reviewed: vital signs, nurses notes, radiologic studies, CT scan, plain films, and as a result, I will discharge patient. Independent interpretation of the following test(s) in the Emergency Department X-Ray: My interpretation is X-ray right hand images shows questionable metacarpal fractures per my interpretation. CT Scan: My interpretation is CT head images negative for acute hemorrhage per my interpretation. Counseling: I had a detailed discussion with the patient and/or guardian regarding the historical points, exam findings, and any diagnostic results supporting the discharge/admit diagnosis, radiology results, the need for outpatient follow up, to return to the emergency department if symptoms worsen or persist or if there are any questions or concerns that arise at home. Response to treatment: the patient's symptoms have markedly improved after treatment, and as a result, I will discharge patient. Special discussion: I discussed with the patient/guardian in detail that at this point there is no indication for admission to the hospital. It is understood, however, that if the symptoms persist or worsen the patient needs to return immediately for re-evaluation. Based on the history and exam findings, there is no indication for further emergent testing or inpatient evaluation. I discussed with the patient/guardian the need to see the orthopedic surgeon for further evaluation of the symptoms. 01/22 11:29 Order name: CT Head C Spine; Complete Time: 13:14 rn 01/22 11:29 Order name: CT Facial Bones W/O Con; Complete Time: 13:14 rn 01/22 11:29 Order name: XRAY Hand RIGHT 3 View; Complete Time: 13:14 rn 01/22 13:23 Order name: Hand Right Wo Con; Complete Time: 14:21 EDMS 01/22 11:29 Order name: Wound Care; Complete Time: 15:11 rn 01/22 11:29 Order name: Suture Tray at Bedside; Complete Time: 12:47 rn 01/22 14:50 Order name: Splint - Volar Wrist Splint; Complete Time: 16:18 rn Administered Medications: 15:11 Drug: Lidocaine Infiltration (1 %) 1 vials 5 ml Infiltration once; to bedside {Note: by ap3 dr garza.} Volume: 5 ml; Route: Infiltration; 17:17 Follow up: Response: No adverse reaction zm Disposition Summary: 01/22/25 15:23 Discharge Ordered Notes: Location: Home rn Problem: new rn Symptoms: have improved rn Condition: Stable rn Diagnosis - Nondisplaced fracture of shaft of unspecified metacarpal bone rn - Fracture of hamate, right wrist rn - Fracture of capitate, right wrist rn - Unspecified injury of head, initial encounter rn Followup: rn - With: Stefan Piña MD - When: 5 - 6 days - Reason: Recheck today's complaints, Re-evaluation by your physician Discharge Instructions: - Discharge Summary Sheet rn - Metacarpal Fracture rn - Head Injury, Adult rn - Sutured internal carver - Wrist Fracture Treated With Immobilization rn - Hamate Fracture rn Forms: - Medication Reconciliation Form rn - Antibiotic western felt hat blocker - Prescription Opioid Use rn - Patient Portal Instructions rn - Leadership Thank You Letter rn Signatures: Dispatcher [employer] EDMS Scott Garza MD MD rn Baxter, Heather RN RN Marilynn Espino RN RN ap3 Heather Boyce RN zm Corrections: (The following items were deleted from the chart) 11:29 11:29 Hand Right 3 View+RAD.[email or web address].[email or web address] ordered. EDMS EDMS 13:21 13:21 CT RIGHT HAND WO CONTRAST ordered. EDMS EDMS
[2025-01-23 00:22] VITALS: BP 163/67; TEMP 98.1; O2SAT 96
== END 2025-01-22 17:22 | disposition home or self-care (01) ==
LOC: ER 11:04
PROC: 0JQ13ZZ Repair Face Subcutaneous Tissue and Fascia, Percutaneous Approach (ICD-10-PCS; principal; 2025-01-22)
DX: S62.354A Nondisplaced fracture of shaft of fourth metacarpal bone, right hand, initial encounter for closed fracture (principal); S62.356A Nondisplaced fracture of shaft of fifth metacarpal bone, right hand, initial encounter for closed fracture; S62.101A Fracture of unspecified carpal bone, right wrist, initial encounter for closed fracture; S01.511A Laceration without foreign body of lip, initial encounter; W01.0XXA Fall on same level from slipping, tripping and stumbling without subsequent striking against object, initial encounter; Y93.89 Activity, other specified; Y92.512 Supermarket, store or market as the place of occurrence of the external cause; Z88.0 Allergy status to penicillin; Z88.1 Allergy status to other antibiotic agents; I10 Essential (primary) hypertension; E03.9 Hypothyroidism, unspecified
CPT/HCPCS: 70450; 72125; 70486; 76377; 73200; 73130; 99284; 12011; J2003